=== PATIENT | female | born 1960 | race Caucasian/White ===

== ENCOUNTER 2019-08-09 17:08 | Emergency (ER) | payer BC, SELFPAY ==
[2019-08-09 17:17] VITALS: BP 137/84; PULSE 76; RESP 18; TEMP 36.7; O2SAT 97; BMI 20.6
--- NOTE | 2019-08-09 17:38 | ECG_ITS ---
Measurements Intervals [place] Rate: 69 P: 46 VT: 165 QRS: 58 QRSD: 86 T: 42 QT: 389 QTc: 417 SINUS RHYTHM Compared to ECG 04/04/2018 15:44:50 Sinus tachycardia no longer present Electronically Signed On 08-10-2019 17:21:03 CDT by John Duran M.D. [email or web address]
--- NOTE | 2019-08-09 17:38 | XR_ITS ---
WS: [id number] XR chest 1V portable [id number] REASON FOR EXAM: cp FINDINGS: The heart and mediastinal interfaces are normal. At the region of the T11 vertebra there appears to be a vertebral plasty changes and there is clips s een in this area also. Arteriosclerotic changes in the arch of the aorta. No pneumothorax seen. The hilum and apices normal. XR/XR chest 1V portable [id number] IMPRESSION: Negative chest for acute pathology.
[2019-08-09 17:45] VITALS: O2SAT 95
--- NOTE | 2019-08-09 17:45 | W.ED.CHESTPA ---
HPI - Chest Pain General: Chief Complaint: Chest Pain Stated Complaint: cp,leg pain Time Seen by Provider: 08/09/19 17:36 History of Present Illness: HPI narrative: Patient is concerned about a blood clot to her lungs. She felt a pain on the right side of her leg and immediately had chest pain she states. Denies shortness of breath says chest pain is now gone denies any chest pressure has no pain her arm or neck presently patient is a patient of Dr. Kramer's MD complaint: chest pain Onset (ago): minute(s) Timing of current episode: now resolved Prior episodes: Yes Onset: during rest Pain location: left chest Pain radiation: left arm and neck Severity: mild Quality: sharp Relieving factors: nitroglycerin Exacerbating factors: nothing Associated symptoms: Reports other (Patient states that felt a pain pop in her right leg she is worried about a blood clot traveling to her heart immediately); Deny abdominal pain, dyspnea, fever(s), nausea or vomiting Risk Factors: Coronary artery disease risk factors: hypertension Review of Systems Const: Denies: fever, chills or body aches Eyes: Denies: change in vision or blurry vision ENMT: Denies: throat pain or nasal congestion Card: Reports: chest pain and other (Varicose vein that popped and right leg, patient has a history of stent and prior ND.); Denies: shortness of breath on exertion Resp: Denies: shortness of breath, productive cough or non-productive cough GI: Denies: abdominal pain, nausea or vomiting Musc: Denies: extremity pain Skin/Breast: Denies: rash Neuro: Denies: headache Psych: Denies: anxiety or depression Keaton/Lymph: Denies: easy bruising PFSH ED PFSH: Social History Smoking and tobacco status: current every day smoker Physical Exam Const: COMMON NORMALS: no apparent distress, average body habitus and oriented x3 HENMT: COMMON NORMALS: normocephalic HEAD & SCALP: normal to inspection and normocephalic FACE & SINUS: normal facial exam Eye: COMMON NORMALS: conjunctivae normal GENERAL EYE: normal appearance of both eyes CONJUNCTIVA: Yes conjunctivae normal Neck/C-Spine: COMMON NORMALS: no JVD Chest: COMMONS NORMALS: inspection of chest normal Resp: COMMON NORMALS: normal respiratory effort and clear to auscultation bilaterally AUSCULTATION: clear to auscultation bilaterally Cardio: COMMON NORMALS: no JVD, regular rate and regular rhythm RATE: regular rate RHYTHM: regular rhythm GI: COMMON NORMALS: normal to inspection, nondistended, normoactive bowel sounds Extremity: COMMON NORMALS: normal to inspection and full ROM OTHER: Patient has bruising to her right leg where varicose vein look like it might of busted at looks can old to me. There is no swelling slight slight tenderness to the surface area. No swelling to the calf good range of motion Homans sign is negative. Neuro: COMMON NORMALS: oriented x3 Course Vital Signs: Vital signs: Vital Signs Temperature 98.0 F 08/09/19 17:17 Pulse Rate 76 08/09/19 17:17 Respiratory Rate 18 08/09/19 17:17 Blood Pressure 137/84 08/09/19 17:17 Pulse Oximetry 95 08/09/19 17:45 MDM - Chest Pain MDM Narrative: Medical decision making narrative: Heart score is a 4-5. patient got anxious about the pain she fell on her leg and then she had immediate chest pain started panicking pain is completely relieved now has no shortness of breath feels good desiring to go home. Patient states he does not want to wait for another test she is aware of the risk of going home agrees with her that they do not want a wait because she is fine now and she says that this pain is completely different from the chest pain she is had in the past and she is not having pain since first panic episode. I encouraged him to stay for the 2-hour troponin they said they feel there is no need to and they do not want to they just want to go home. Patient is to follow-up here if pain recurs and her both agree that they will do that. Discussed case with Dr. Price Lab Data: Labs: Lab Results 08/09/19 08/09/19 08/09/19 Range/Units 18:18 18:18 18:18 WBC 9.7 (4.0-10.0) 10^3/ uL RBC 3.94 L (4.1-5.3) 10^6/u L Hgb 12.5 (11.5-15.3) g/dL Hct 38.2 (37.0-47.0) % MCV 97.0 (81-99) fL MCH 31.7 (28.0-34.0) pg MCHC 32.7 (30.0-36.0) g/dL RDW 12.7 (12.1-15.1) % Plt Count 571 H (130-400) 10^3/c mm MPV 8.2 (7.4-10.4) fL Neut % (Auto) 57.8 % Lymph % (Auto) 32.6 % [place] % (Auto) 7.1 % Eos % (Auto) 1.8 % Baso % (Auto) 0.4 % Neut # (Auto) 5.6 (1.8-7.7) 10^3/u L Lymph # (Auto) 3.2 (0.8-4.8) 10^3/u L [place] # (Auto) 0.7 (0.2-0.9) 10^3/u L Eos # (Auto) 0.2 (0.0-0.8) 10^3/u L Baso # (Auto) 0.0 (0.0-0.1) 10^3/u L Nucleated RBC % (a uto) 0 % Nucleated RBCs # 0.0 /100WBC Sodium 138 (136-145) mmol/L Potassium 4.3 (3.5-5.1) mmol/L Chloride 102 (98-107) mmol/L Carbon Dioxide 24 (22-29) mmol/L Anion Gap 16.3 (5-19) BUN 14 (8-23) mg/dL Creatinine 0.7 (0.5-0.9) mg/dL GFR Calculation 85.4 L (90-130) mL/min Glucose 102 (65-115) mg/dL Calculated Osmolal ity 282 L (285-295) mOsm/k g Calcium 9.7 (8.5-10.5) mg/dL Total Bilirubin 0.3 (0.15-1.2) mg/dL AST 20 (0-32) U/L ALT 22 (0-33) U/L Alkaline Phosphata se 69 (35-105) IU/L Troponin T Baselin e 7 (0-10) ng/mL Total Protein 7.5 (6.6-8.7) g/dL Albumin 4.4 (3.5-5.2) g/dL Globulin 3.1 (1.3-4.6) g/dL EKG Data^: EKG 1: EKG interpretation date: 08/09/19 EKG interpretation time: 17:48 Interpretation: Normal sinus rhythm ventricular rate of 69 bpm TN interval 165 QRS is 86 ms Discharge Plan Discharge Patient Disposition: Home, Self-Care Clinical Impression: Atypical chest pain, Panic attack Condition: Stable Discharge Orders: Discharge Order (Routine); Ordered 08/09/19 Ordered By: Ronen Gerard Referrals: Uriel Bae DO [Family Provider] - Discharge Diet: Usual diet Discharge Activity: Increase activity as tolerated Patient Instructions: Chest Pain (ED), Panic Attack Activity Restrictions/Additional Instructions: Follow-up with medical provider as directed. Take medications as prescribed. Return to the ER or your medical provider if condition worsens. Please read and understand discharge instructions. If any questions ask please. Return the ER via ambulance or come in if chest pain reoccurs follow-up your primary care provider moist heat to right lower extremity might help with the discomfort of varicose veins. Coding Level of Care Code ED Cable Ferry Operator for Chg Fwd Exam Comprehensive
[2019-08-09 18:32] LABS: Basophils % 0.4 %; Eosinophils # 0.2 10^3/uL (0.0-0.8); Eosinophils % 1.8 %; Hematocrit 38.2 % (37.0-47.0); Hemoglobin 12.5 g/dL (11.5-15.3); Lymphocytes # 3.2 10^3/uL (0.8-4.8); Lymphocytes % 32.6 %; Mean Corpuscular HGB Conc 32.7 g/dL (30.0-36.0); Mean Corpuscular Hemoglobin 31.7 pg (28.0-34.0); Mean Platelet Volume 8.2 fL (7.4-10.4); Monocytes # 0.7 10^3/uL (0.2-0.9); Monocytes % 7.1 %; Neutrophils # 5.6 10^3/uL (1.8-7.7); Neutrophils % 57.8 %; Nucleated Red Blood Cells % 0 %; Platelet Count 571 10^3/cmm (130-400); Red Blood Count 3.94 10^6/uL (4.1-5.3); Red Cell Distribution Width 12.7 % (12.1-15.1); White Blood Count 9.7 10^3/uL (4.0-10.0)
[2019-08-09 18:51] LABS: Alanine Aminotransferase 22 U/L (0-33); Albumin Level 4.4 g/dL (3.5-5.2); Alkaline Phosphatase 69 IU/L (35-105); Anion Gap 16.3 (5-19); Aspartate Amino Transferase 20 U/L (0-32); Blood Urea Nitrogen 14 mg/dL (8-23); Calcium 9.7 mg/dL (8.5-10.5); Carbon Dioxide 24 mmol/L (22-29); Chloride 102 mmol/L (98-107); Globulin 3.1 g/dL (1.3-4.6); Glomerular Filtration Rate 85.4 mL/min (90-130); Glucose 102 mg/dL (65-115); Osmolality Calculated 282 mOsm/kg (285-295); Potassium 4.3 mmol/L (3.5-5.1); Sodium 138 mmol/L (136-145); Total Bilirubin 0.3 mg/dL (0.15-1.2); Total Protein 7.5 g/dL (6.6-8.7)
[2019-08-09 18:53] LABS: Troponin(5th) Baseline 7 ng/mL (0-10)
[2019-08-09 19:27] VITALS: BP 117/72; PULSE 73; RESP 18; O2SAT 98
== END 2019-08-09 19:28 | disposition home or self-care (01) ==
PROVIDERS: Emergency Provider Nurse Practitioner Family; Family Provider Family Medicine
DX: R07.89 Other chest pain (principal); F41.0 Panic disorder [episodic paroxysmal anxiety]; I25.2 Old myocardial infarction; F17.200 Nicotine dependence, unspecified, uncomplicated; Z95.5 Presence of coronary angioplasty implant and graft
CPT/HCPCS: 12345; 71045; 80053; 84484; 85025; 93005; 99282; 99283

== ENCOUNTER 2019-10-09 11:40 | Inpatient (IN) | payer BC, SELFPAY ==
[2019-10-09] VITALS (7 sets, daily range): BP systolic 118–123; BP diastolic 68–83; PULSE 68–123; RESP 18; TEMP 36.4–36.6; O2SAT 94–98; BMI 21.1
--- NOTE | 2019-10-09 12:16 | W.ED.ABDPA2 ---
HPI - Abdominal Pain General: Chief Complaint: Abdominal Pain Stated Complaint: stomach pain Time Seen by Provider: 10/09/19 11:53 History of Present Illness: HPI narrative: Patient is a 59 year old female presenting with abdominal pain and vomiting. She thinks that she has another intestinal blockage. She has had numerous blockages and resections - most recent surgery was about 9 years ago but she has had admissions with NG tubes since then several times. She has had pain for two days and started throwing up yesterday. She has only been sucking on ice chips for the past day or two. She has not had a bowel movement in 2 days. MD elicited complaint: abdominal pain Onset (ago): day(s) (2) Pain Consistency: constant Location: Diffuse Severity: similar to previous episodes Quality: cramping and sharp Radiation: back Exacerbating factors: movement Relieving factors: nothing Context: history of similar episodes Associated Symptoms: Reports anorexia, nausea and vomiting; Denies fever(s) Review of Systems Const: Denies: fever(s) Card: Denies: chest pain or palpitations Resp: Denies: dyspnea, productive cough or non-productive cough GI: Reports: abdominal pain, nausea and vomiting : Denies: difficulty voiding Neuro: Denies: headache(s) Keaton/Lymph: Denies: easy bruising or easy bleeding PFS ED PFSH: Social History Smoking and tobacco status: current every day smoker Physical Exam Const: COMMON NORMALS: patient oriented x3 GENERAL APPEARANCE: cooperative and in distress NUTRITIONAL APPEARANCE: underweight Neck/C-Spine: COMMON NORMALS: no JVD Chest: COMMONS NORMALS: normal inspection of the chest Resp: COMMON NORMALS: normal respiratory effort, No retractions, No use of accessory muscles and clear to auscultation bilaterally AUSCULTATION: clear to auscultation bilaterally Cardio: COMMON NORMALS: no JVD, regular rhythm and No murmurs present (Cardio) RATE: tachycardic RHYTHM: regular rhythm GI: INSPECTION: Yes scar (multiple surgical scars) PALPATION: Yes Tenderness to palpation present (GI) and Yes Guarding due to palpation present (GI) : BLADDER/KIDNEY EXAM: Yes CVA tenderness Back/Pelvis: COMMON NORMALS: thoraco-lumbar ROM normal GENERAL BACK: Yes CVA tenderness LUMBAR SPINE/LOWER BACK: Yes normal to inspection Extremity: COMMON NORMALS: normal to inspection Neuro: COMMON NORMALS: patient oriented x3 and moves all extremities Psych: COMMON NORMALS: mental status grossly normal, Normal thought process present, cooperative and normal affect THOUGHT PROCESS: Normal thought process present Skin: COMMON NORMALS: no rashes or lesions noted and no wounds GENERAL SKIN EXAM: no rashes or lesions noted Course ED course: Patient with history of multiple episodes of SBO with multiple prior surgeries. She is in significant distress today - and likely has another blockage. AAS nondiagnostic - CT confirms obstruction in the RLQ. NG tube placed - she reports an allergy to lidocaine but says she has had it safely with benadryl in the past - so lidocaine gel was used for the tube placement. Dr. Marie will admit her for further management. Reevaluation(s): Reevaluation #1: Patient with some improvement, but requesting another dose of pain medicine. Tolerating PO contrast with difficulty. Time: 14:38 Vital Signs: Vital signs: Vital Signs Temperature 97.9 F 10/09/19 19:31 Pulse Rate 77 10/09/19 19:31 Respiratory Rate 18 10/09/19 19:31 Blood Pressure 123/83 10/09/19 19:31 Pulse Oximetry 97 10/09/19 19:31 MDM - Abdominal Pain MDM Narrative: Medical decision making narrative: History of SBO - significant pain, tachycardia, slightly elevated WBC and lactate. Lab Data: Labs: Lab Results 10/09/19 10/09/19 10/09/19 Range/Units 12:40 12:40 12:40 WBC 15.7 H (4.0-10.0) 10^3/ uL RBC 4.86 (4.1-5.3) 10^6/u L Hgb 15.2 (11.5-15.3) g/dL Hct 44.6 (37.0-47.0) % MCV 91.8 (81-99) fL MCH 31.3 (28.0-34.0) pg MCHC 34.1 (30.0-36.0) g/dL RDW 12.6 (12.1-15.1) % Plt Count 502 H (130-400) 10^3/c mm MPV 8.6 (7.4-10.4) fL Neut % (Auto) 71.1 % Lymph % (Auto) 21.4 % [place] % (Auto) 6.7 % Eos % (Auto) 0.3 % Baso % (Auto) 0.1 % Neut # (Auto) 11.2 H (1.8-7.7) 10^3/u L Lymph # (Auto) 3.4 (0.8-4.8) 10^3/u L [place] # (Auto) 1.1 H (0.2-0.9) 10^3/u L Eos # (Auto) 0.0 (0.0-0.8) 10^3/u L Baso # (Auto) 0.0 (0.0-0.1) 10^3/u L Nucleated RBC % (a uto) 0 % Nucleated RBCs # 0.0 /100WBC Sodium 137 (136-145) mmol/L Potassium 3.9 (3.5-5.1) mmol/L Chloride 97 L (98-107) mmol/L Carbon Dioxide 24 (22-29) mmol/L Anion Gap 19.9 H (5-19) BUN 11 (8-23) mg/dL Creatinine 0.7 (0.5-0.9) mg/dL GFR Calculation 85.4 L (90-130) mL/min Glucose 183 H (65-115) mg/dL Calculated Osmolal ity 285 (285-295) mOsm/k g Lactate 2.6 H (0.5-2.2) mmol/L Calcium 10.3 (8.5-10.5) mg/dL Total Bilirubin 0.8 (0.15-1.2) mg/dL AST 15 (0-32) U/L ALT 22 (0-33) U/L Alkaline Phosphata se 76 (35-105) IU/L Total Protein 8.2 (6.6-8.7) g/dL Albumin 4.8 (3.5-5.2) g/dL Globulin 3.4 (1.3-4.6) g/dL Lipase 15 (13-60) U/L Urine Color (Yellow) Urine Appearance (CLEAR) Urine pH (5-7) Ur Specific Gravit y (1.005-1.030) Urine Protein (Negative) Urine Glucose (UA) (Normal) Urine Ketones (Negative) Urine Blood (Negative) Urine Nitrate (Negative) Urine Bilirubin (NEGATIVE) Urine Urobilinogen (Negative) mg/dL Ur Leukocyte Dina ase (Negative) Urine RBC (0-2) /hpf Urine WBC (0-5) /hpf Ur Squamous Epith Cells (0-5) Urine Bacteria (NONE) Urine Mucus 10/09/19 Range/Units 14:41 WBC (4.0-10.0) 10^3/ uL RBC (4.1-5.3) 10^6/u L Hgb (11.5-15.3) g/dL Hct (37.0-47.0) % MCV (81-99) fL MCH (28.0-34.0) pg MCHC (30.0-36.0) g/dL RDW (12.1-15.1) % Plt Count (130-400) 10^3/c mm MPV (7.4-10.4) fL Neut % (Auto) % Lymph % (Auto) % [place] % (Auto) % Eos % (Auto) % Baso % (Auto) % Neut # (Auto) (1.8-7.7) 10^3/u L Lymph # (Auto) (0.8-4.8) 10^3/u L [place] # (Auto) (0.2-0.9) 10^3/u L Eos # (Auto) (0.0-0.8) 10^3/u L Baso # (Auto) (0.0-0.1) 10^3/u L Nucleated RBC % (a uto) % Nucleated RBCs # /100WBC Sodium (136-145) mmol/L Potassium (3.5-5.1) mmol/L Chloride (98-107) mmol/L Carbon Dioxide (22-29) mmol/L Anion Gap (5-19) BUN (8-23) mg/dL Creatinine (0.5-0.9) mg/dL GFR Calculation (90-130) mL/min Glucose (65-115) mg/dL Calculated Osmolal ity (285-295) mOsm/k g Lactate (0.5-2.2) mmol/L Calcium (8.5-10.5) mg/dL Total Bilirubin (0.15-1.2) mg/dL AST (0-32) U/L ALT (0-33) U/L Alkaline Phosphata se (35-105) IU/L Total Protein (6.6-8.7) g/dL Albumin (3.5-5.2) g/dL Globulin (1.3-4.6) g/dL Lipase (13-60) U/L Urine Color Yellow (Yellow) Urine Appearance Hazy A (CLEAR) Urine pH 5 (5-7) Ur Specific Gravit y 1.025 (1.005-1.030) Urine Protein Neg (Negative) Urine Glucose (UA) Norm (Normal) Urine Ketones 1+ H (Negative) Urine Blood Neg (Negative) Urine Nitrate Positive H (Negative) Urine Bilirubin 1+ H (NEGATIVE) Urine Urobilinogen 1 H (Negative) mg/dL Ur Leukocyte Dina ase Negative (Negative) Urine RBC None (0-2) /hpf Urine WBC 5-10 H (0-5) /hpf Ur Squamous Epith Cells None (0-5) Urine Bacteria 4+ H (NONE) Urine Mucus 1+ Discharge Plan Discharge Patient Disposition: Admitted As Inpatient Admit Provider: Kevin Marie Clinical Impression: Small bowel obstruction Urinary tract infection Qualifiers: Urinary tract infection type: site unspecified Hematuria presence: without hematuria Qualified Code(s): N39.0 - Urinary tract infection, site not specified Condition: Stable Discharge Date/Time: 10/09/19 19:08 Coding Level of Care Code ED Boy'S Adviser for Aneeshg Fwd Exam Comprehensive
[2019-10-09] MEDS: sodium chloride 0.9% 1,000 ML 999 ML IV ×2 (12:22→14:30)
[2019-10-09] MEDS: HYDROmorphone 1 mg/mL INJ 1 mL 0.5 MG IVP ×3 (12:28→18:03)
[2019-10-09] MEDS: ondansetron 2 mg/ML SDV 2 mL 4 MG IVP ×2 (12:28→22:14)
--- NOTE | 2019-10-09 12:49 | XR_ITS ---
WS: [id number] Abdomen series: PA CHEST AND 2 VIEWS OF THE ABDOMEN HISTORY: SUSPECTED SBO COMPARISON: 04/07/2018 Lungs are clear and well aerated. Heart size is normal. No free air beneath the diaphragm. Mild fluid distention of the small bowel but no air-fluid levels are identified. No masses or calcifi cations. Osseous structures are also within normal limits. No free air beneath the diaphragm. Multiple surgical clips at the GE junction. Prior vertebroplasty at T12. XR/XR acute abdomen series [id number] IMPRESSION: No air-fluid levels or GI tract obstruction identified radiographically. No free air. Mild dilatation of the central small bowel loops.
[2019-10-09 12:58] LABS: Basophils % 0.1 %; Eosinophils % 0.3 %; Hematocrit 44.6 % (37.0-47.0); Hemoglobin 15.2 g/dL (11.5-15.3); Lymphocytes # 3.4 10^3/uL (0.8-4.8); Lymphocytes % 21.4 %; Mean Corpuscular HGB Conc 34.1 g/dL (30.0-36.0); Mean Corpuscular Hemoglobin 31.3 pg (28.0-34.0); Mean Corpuscular Volume 91.8 fL (81-99); Mean Platelet Volume 8.6 fL (7.4-10.4); Monocytes # 1.1 10^3/uL (0.2-0.9); Monocytes % 6.7 %; Neutrophils # 11.2 10^3/uL (1.8-7.7); Neutrophils % 71.1 %; Nucleated Red Blood Cells % 0 %; Platelet Count 502 10^3/cmm (130-400); Red Blood Count 4.86 10^6/uL (4.1-5.3); Red Cell Distribution Width 12.6 % (12.1-15.1); White Blood Count 15.7 10^3/uL (4.0-10.0)
[2019-10-09 13:15] LABS: Lactate (Lactic Acid level) 2.6 mmol/L (0.5-2.2)
--- NOTE | 2019-10-09 13:16 | CT_ITS ---
WS: [id number] CT ABDOMEN AND PELVIS WITH CONTRAST HISTORY: abdominal pain, fever TECHNIQUE: Imaging performed of the abdomen and pelvis with IV contrast. Single phase imaging of the abdomen. Coronal and sagittal reformats are submitted. All CT scans at [facility] use at least one of these dose optimization techniques: automated exposure control; mA and/or kV adjustment per patient size (includes targeted exams where dose is matched to clinical indication); or iterativ e reconstruction. IV CONTRAST: Omnipaque 300; 95 mL IV. Oral contrast: Yes. DLP: 500.31 mGy.cm COMPARISON: 04/04/2018 Lower thorax: Lung bases are clear. Heart is normal size. Postoperative clips at the GE junction. No hernia. Liver/biliary system: Normal size liver. 1.5 cm cyst along the dome of the liver. No bile duct dilata tion. Gallbladder: Prior cholecystectomy. Pancreas: Significant atrophy of the body and tail of the pancreas. No mass or bile duct dilatation. Spleen: Normal. Adrenal glands: Normal. Right kidney: Normal. Left kidney: Normal. Aorta: Atherosclerosis aorta with no aneurysm. Lymphadenopathy: None. Free fluid: None. GI tract: Marked fluid in the food retention in the stomach. There is marked dilatation of the duoden al C-loop and the proximal jejunum. There is marked thickening of the jejunal mucosa nodular componen ts extending into the small bowel lumen. There is a focal stricture in the RIGHT lower quadrant dista l small bowel. Additional mild mucosal thickening involving the transverse colon. There are anastomot ic sutures in the mid and distal small bowel. There is mild change in caliber of the proximal and mid small bowel loops with the distal small bowel loops. Slight of obstruction is not apparent. Prior ap pendectomy. Abdominal wall: Unremarkable abdominal wall. No hernia. Pelvis: Normal. Bones: Unremarkable. CT/CT abdomen pelvis w con* [id number] IMPRESSION: 1. Dilated patulous proximal and mid small bowel loops. Multiple surgical anas tomotic sites throughout the small bowel. Distal small bowel loops are more nor mal caliber. Site of obstruction is not apparent. 2. Diffuse small bowel mucosal thickening with soft tissue nodules projecting into the lumen. Edema, infection or hemorrhage may appear similar. 3. No ascites. No free air. 4. Prior cholecystectomy.
[2019-10-09 13:17] LABS: Alanine Aminotransferase 22 U/L (0-33); Albumin Level 4.8 g/dL (3.5-5.2); Alkaline Phosphatase 76 IU/L (35-105); Anion Gap 19.9 (5-19); Aspartate Amino Transferase 15 U/L (0-32); Blood Urea Nitrogen 11 mg/dL (8-23); Calcium 10.3 mg/dL (8.5-10.5); Carbon Dioxide 24 mmol/L (22-29); Chloride 97 mmol/L (98-107); Globulin 3.4 g/dL (1.3-4.6); Glomerular Filtration Rate 85.4 mL/min (90-130); Glucose 183 mg/dL (65-115); Lipase 15 U/L (13-60); Osmolality Calculated 285 mOsm/kg (285-295); Potassium 3.9 mmol/L (3.5-5.1); Sodium 137 mmol/L (136-145); Total Bilirubin 0.8 mg/dL (0.15-1.2); Total Protein 8.2 g/dL (6.6-8.7)
[2019-10-09] MEDS: iohexol 300 mg/mL 50 mL Btl PO (13:59)
[2019-10-09 14:54] LABS: Blood Urine Neg (Negative); Glucose Urine UA Norm (Normal); Ketones Urine 1+ (Negative); Nitrate Urine Positive (Negative); Protein Urine Neg (Negative); Specific Gravity, Urine 1.025 (1.005-1.030); Urine Appearance Hazy (CLEAR); Urine Color Yellow (Yellow); pH Urine 5 (5-7)
[2019-10-09 14:55] LABS: Add Urine Culture? Yes; Add Urine Microscopic? YES; Bacteria Urine 4+; Bilirubin Urine 1+ (NEGATIVE); Leukocyte Esterase Urine Negative (Negative); Mucus Urine 1+; Urobilinogen Urine 1 mg/dL (Negative)
[2019-10-09] MEDS: iohexol 300 mg/mL 100 mL Btl IV (16:16)
--- NOTE | 2019-10-09 17:01 | XRR_ITS ---
PROCEDURE INFORMATION: Exam: XR Chest, 1 View Exam date and time: 10/09/2019 6:24 PM Age: 59 years old Clinical indication: Device placement; Ng tube; Additional info: Ng tube placement TECHNIQUE: Imaging protocol: XR of the chest Views: 1 view. COMPARISON: CR XR chest 1V portable [id number] 08/09/2019 5:57 PM FINDINGS: Tubes, catheters and devices: A nasogastric tube is present with its tip in the distal stomach. Lungs: Unremarkable. No consolidation. Pleural space: Unremarkable. No pleural effusion. No pneumothorax. Heart/Mediastinum: Unremarkable. No cardiomegaly. Bones/joints: Unremarkable. XR/XR chest 1V portable [id number] IMPRESSION: Nasogastric tube tip in distal stomach.
[2019-10-09] MEDS: D5-NS 0.45% + KCL 20 mEq 20 MEQ/1,000 ML BAG 100 MEQ IV ×2 (18:00→23:12)
[2019-10-09] MEDS: cefTRIAXone 1,000 MG in sodium chloride 0.9% (plus) 50 ML 100 MG IV (18:01)
[2019-10-09] MEDS: diphenhydrAMINE 50 mg/mL SDV 1mL IVP (18:05)
[2019-10-09] MEDS: enoxaparin 30 mg/0.3 mL Syringe SUBCUT (18:05)
[2019-10-09] MEDS: pantoprazole 40 mg SDV IVP (18:05)
[2019-10-09] MEDS: ketorolac 30 mg/mL INJ 15 MG IVP (22:13)
[2019-10-10] VITALS (8 sets, daily range): BP systolic 97–124; BP diastolic 63–81; PULSE 63–95; RESP 18–22; TEMP 36.5–37; O2SAT 93–98
[2019-10-10] MEDS: HYDROmorphone 1 mg/mL INJ 1 mL 0.5 MG IVP (02:36)
[2019-10-10 06:14] LABS: Basophils % 0.3 %; Eosinophils # 0.2 10^3/uL (0.0-0.8); Eosinophils % 2.3 %; Hematocrit 32.8 % (37.0-47.0); Hemoglobin 10.8 g/dL (11.5-15.3); Lymphocytes # 3.6 10^3/uL (0.8-4.8); Lymphocytes % 48.1 %; Mean Corpuscular HGB Conc 32.9 g/dL (30.0-36.0); Mean Corpuscular Hemoglobin 32.2 pg (28.0-34.0); Mean Corpuscular Volume 97.9 fL (81-99); Mean Platelet Volume 8.5 fL (7.4-10.4); Monocytes # 0.6 10^3/uL (0.2-0.9); Monocytes % 7.8 %; Neutrophils # 3.1 10^3/uL (1.8-7.7); Neutrophils % 41.2 %; Nucleated Red Blood Cells % 0 %; Platelet Count 318 10^3/cmm (130-400); Red Blood Count 3.35 10^6/uL (4.1-5.3); White Blood Count 7.5 10^3/uL (4.0-10.0)
[2019-10-10] MEDS: ketorolac 30 mg/mL INJ 15 MG IVP ×4 (06:19→23:25)
[2019-10-10 06:34] LABS: Alanine Aminotransferase 15 U/L (0-33); Albumin Level 3.3 g/dL (3.5-5.2); Alkaline Phosphatase 50 IU/L (35-105); Anion Gap 14.2 (5-19); Aspartate Amino Transferase 13 U/L (0-32); Blood Urea Nitrogen 6 mg/dL (8-23); Calcium 8.4 mg/dL (8.5-10.5); Carbon Dioxide 21 mmol/L (22-29); Chloride 111 mmol/L (98-107); Globulin 2.3 g/dL (1.3-4.6); Glomerular Filtration Rate 125.9 mL/min (90-130); Glucose 123 mg/dL (65-115); Osmolality Calculated 291 mOsm/kg (285-295); Potassium 4.2 mmol/L (3.5-5.1); Sodium 142 mmol/L (136-145); Total Bilirubin 0.3 mg/dL (0.15-1.2); Total Protein 5.6 g/dL (6.6-8.7)
--- NOTE | 2019-10-10 07:09 | XRR_ITS ---
PROCEDURE INFORMATION: Exam: XR Complete Acute Abdomen Series Exam date and time: 10/10/2019 6:46 AM Age: 59 years old Clinical indication: Abdominal pain; Generalized; Additional info: Sbo TECHNIQUE: Imaging protocol: XR complete acute abdomen series, including 2 or more views of the abdomen and a single view chest. COMPARISON: No relevant prior studies available. FINDINGS: Tubes, catheters and devices: Enteric tube extends to the abdomen with the tip at the level of gastric body slightly right of midline. Lungs: No focal parenchymal consolidation. Pleural space: Normal. No pneumothorax. Heart/Mediastinum: Heart size is similar. Gastrointestinal tract: Residual gastrointestinal contrast media within bowel predominantly colon. No extreme dilatation of bowel. Paucity of bowel gas left abdomen which could reflect fluid-filled or distended bowel. No significant air-fluid levels. Intraperitoneal space: Numerous surgical clips upper abdomen. Lucency centrally within the abdomen on the supine image only is probably artifactual. Vasculature: Calcification thoracic aorta. Numerous vascular calcifications and phleboliths within the pelvis. Bones/joints: Plate fixation lower cervical spine. Osteopenia. Prior vertebroplasty at T12. Soft tissues: Normal. XR/XR acute abdomen series [id number] IMPRESSION: 1. No acute cardiopulmonary process. 2. Residual contrast media within the colon. 3. Postoperative abdomen with paucity of bowel gas on the left which could reflect fluid distended bowel. Nonspecific intestinal gas pattern. Correlation to the recent CT abdomen and pelvis is recommended. 4. Atypical lucency central abdomen on the supine image probably technical with definition of iliopsoas musculature. Correlation to [address] abdomen and pelvis and 1 day previous acute abdominal series is required for complete exclusion of abnormal collection of retroperitoneal gas.
--- NOTE | 2019-10-10 11:31 | PM.HP ---
Providers/Chief Complaint Admitting Physician: Kevin Marie MD Chief Complaint: stomach pain History of Present Illness Yessi Schulte is a 59 year old female who presented to the ER last night with 2-day history of worsening generalized abdominal pain. The pain was made worse with physical activity, did not radiate, no relieving factors. Patient started having severe nausea and vomiting yesterday which she states that she has been a bit constipated but still having daily bowel movements. Admitted to the hospital after CT scan of the abdomen and pelvis showed bowel obstruction. This morning she is feeling a lot better after the NG tube has been placed to suction. Review of Systems General: Reports: 10 or more systems reviewed and unremarkable except in HPI and below Medications/Allergies Home Medications Medication Instructions Recorded Confirmed Last Taken Type gabapentin 300 mg PO TID 10/09/19 10/09/19 10/07/19 History isosorbide mononitrate 30 mg PO DAILY 10/09/19 10/09/19 10/07/19 History metformin 500 mg PO DAILY 10/09/19 10/09/19 10/07/19 History metoprolol succinate 12.5 mg PO BID 10/09/19 10/09/19 10/07/19 History venlafaxine 75 mg PO DAILY 10/09/19 10/09/19 10/07/19 History Allergies Allergy/AdvReac Type Severity Reaction Status Date / Time codeine Allergy ADR-Nausea Verified 10/09/19 11:51 lidocaine Allergy ALGY-Swell Verified 10/09/19 11:51 Lip/Tongue/Throat morphine Allergy ADR-Vomitin Verified 10/09/19 11:51 g Penicillins Allergy ALGY-Swell Verified 10/09/19 11:51 Lip/Tongue/Throat procaine [From Novocain] Allergy ALGY-Swell Verified 10/09/19 11:51 Lip/Tongue/Throat prochlorperazine Allergy ADR-Muscle Verified 10/09/19 11:51 [From Compazine] Pain PFSH Acute PFSH: Medical History Depression HTN (hypertension) with goal to be determined Myocardial infarction acute Pancreatitis SBO (small bowel obstruction) Surgical History H/O exploratory laparotomy H/O splenectomy History of appendectomy S/P cardiac cath S/P cholecystectomy Social History Smoking and tobacco status: current every day smoker Vitals/I&O/Wt Last Vital Signs Temp 97.8 F 10/10/19 07:29 Pulse 63 10/10/19 07:29 Resp 20 H 10/10/19 07:29 BP 124/81 10/10/19 07:29 Pulse Ox 97 10/10/19 07:29 10/09/19 10/10/19 10/10/19 22:59 06:59 14:59 Intake Total 189 / 1414 1225 / 1414 Output Total 50 / 250 200 / 250 Balance 139 / 1164 1025 / 1164 Weight last 48 hrs Weight 112 lb Physical Exam Narrative: EXAM NARRATIVE: HEENT: Normocephalic Eye: Sclera /conjunctiva normal Respiratory and chest: Bilateral clear breath sounds on auscultation Cardiovascular: Normal S1 and S2 heart sounds Abdomen: Soft to palpation, well-healed right subcostal and laparotomy scar Neurological: Oriented to place person and time Skin: Intact, no lesions appreciated on gross exam Data : 10/10/19 05:52 10/10/19 05:52 A&P Assessment and plan (1) Small bowel obstruction: 59-year-old female with prior laparotomies for small bowel obstruction requiring lysis of adhesions who presents again with small bowel obstruction. Clinically she appears to be doing better after NG tube was placed, no evidence of peritonitis or hemodynamic instability. Clamp NG tube Start clear liquid diet 1 bottle of magnesium citrate Milk of molasses enema Ambulate ad xochitl. Hopefully if she is tolerating it we can discontinue the NG tube this evening and advance the diet and can be discharged home tomorrow Status: Acute Attestations Medical Necessity Statement*: Small bowel obstruction requiring 2 nights of inpatient stay to ensure resolution Coding Level of Care Code Acute Marketing Technology Coordinator for [facility] Fw Diagnoses Small bowel obstruction K56.609
--- NOTE | 2019-10-10 11:38 | PC.NURSE ---
Dr. Marie clamped patient's NG tube at this time. If not having any nausea check residue at 1600 and see how much and call and let him know about bowel movements.
--- NOTE | 2019-10-10 13:06 | PC.NURSE ---
Milk and Molasses enema given at this time time with minimal results. Patient tolerated well.
--- NOTE | 2019-10-10 13:49 | PC.RESP ---
Smoking Cessation information to patient with a schedule of classes.
[2019-10-10] MEDS: venlafaxine ER (24HR) 75 mg Capsule PO (13:50)
[2019-10-10] MEDS: isosorbide mononitrate ER 30 mg Tablet PO (13:50)
[2019-10-10] MEDS: gabapentin 300 mg Capsule PO ×2 (16:21→19:58)
[2019-10-10] MEDS: D5-NS 0.45% + KCL 20 mEq 20 MEQ/1,000 ML BAG 100 MEQ IV ×2 (16:24→19:58)
[2019-10-10 17:37] LABS: Glucose Point of Care 121 mg/dL (70-110)
[2019-10-10] MEDS: magnesium citrate Btl 296 mL PO (17:43)
[2019-10-10 21:13] LABS: Glucose Point of Care 109 mg/dL (70-110)
[2019-10-11 03:00] VITALS: BP 97/63; PULSE 74; RESP 20; TEMP 36.6; O2SAT 97
--- NOTE | 2019-10-11 06:28 | XRR_ITS ---
PROCEDURE INFORMATION: Exam: XR Abdomen, 2 Views Exam date and time: 10/11/2019 7:33 AM Age: 59 years old Clinical indication: Abdominal pain; Additional info: Sbo TECHNIQUE: Imaging protocol: XR of the abdomen. Views: 2 Views. COMPARISON: CR XR acute abdomen series [id number] 10/10/2019 5:21 AM FINDINGS: Gastrointestinal tract: Retained feces throughout the colon Intraperitoneal space: Stable postoperative changes over the abdomen and pelvis. Vasculature: One or more calcified pelvic phleboliths. Bones/joints: One or more thoracic vertebroplasties. XR/XR abdomen min 2V [id number] IMPRESSION: No acute findings.
[2019-10-11 06:52] LABS: Glucose Point of Care 144 mg/dL (70-110)
[2019-10-11 07:00] VITALS: BP 133/85; PULSE 60; RESP 18; TEMP 36.4; O2SAT 96
[2019-10-11] MEDS: gabapentin 300 mg Capsule PO (09:19)
[2019-10-11] MEDS: isosorbide mononitrate ER 30 mg Tablet PO (09:20)
[2019-10-11] MEDS: metoprolol succinate ER (24 HR) 25 mg Tablet 12.5 MG PO (09:20)
[2019-10-11] MEDS: venlafaxine ER (24HR) 75 mg Capsule PO (09:20)
[2019-10-11 10:55] VITALS: BP 118/73; PULSE 70; RESP 18; TEMP 36.5; O2SAT 98
[2019-10-11] MEDS: D5-NS 0.45% + KCL 20 mEq 20 MEQ/1,000 ML BAG 100 MEQ IV (10:56)
[2019-10-11 11:29] LABS: Glucose Point of Care 94 mg/dL (70-110)
--- NOTE | 2019-10-11 12:34 | P.DS_ITS ---
Discharge Providers Date of Admission: 10/09/19 17:11 Date of Discharge: October 11, 2019 Attending Provider at Admission: Kevin Marie MD Attending Provider at Discharge: Kevin Marie MD Diagnoses at Discharge Discharge Diagnosis (1) Small bowel obstruction: Status: Resolved Reason for Visit Reason for Visit: Reason For Visit: stomach pain Hospital Course Hospital Course: This is a 59-year-old female with multiple prior admissions for small bowel obstruction presented to the ER with abdominal pain nausea and vomiting and a CT scan showing bowel obstruction. An NG tube was placed and by following day she had return of bowel function with aggressive bowel regimen. At time of discharge her abdominal pain is minimal, she is tolerating a liquid diet and has had multiple bowel movements. Physical Exam Narrative: EXAM NARRATIVE: Abdomen: Soft and nondistended Discharge Data Data Completed and Pending: Completed Studies During Hospitalization Category Date Time Status CT abdomen pelvis w con* [id number] Urge nt Cat Scan 10/09/19 13:16 Completed XR abdomen min 2V [id number] Routine Exams 10/11/19 06:28 Completed XR acute abdomen series [id number] Routi ne Exams 10/10/19 07:09 Completed XR acute abdomen series [id number] Urgen t Exams 10/09/19 12:49 Completed XR chest 1V tevin ble [id number] Stat Exams 10/09/19 17:01 Completed Labs from last 24 hours 10/11/19 10/11/19 10/10/19 10:53 06:45 21:06 POC Glucose 94 144 109 10/10/19 17:31 POC Glucose 121 Vitals: Last Vital Signs Temp 97.7 F 10/11/19 10:55 Pulse 70 10/11/19 10:55 Resp 18 10/11/19 10:55 BP 118/73 10/11/19 10:55 Pulse Ox 98 10/11/19 10:55 Discharge Plan Discharge Patient Disposition: Home, Self-Care Condition: Stable Prescriptions: New lactulose 10 gram/15 mL solution 15 ml PO BID Qty: 237 RF: 2 ciprofloxacin HCl 500 mg tablet 500 mg PO BID 5 Days Qty: 10 RF: 0 Continued venlafaxine 75 mg capsule,extended release 24hr 75 mg PO DAILY RF: 0 isosorbide mononitrate 30 mg tablet extended release 24 hr 30 mg PO DAILY RF: 0 gabapentin 300 mg capsule 300 mg PO TID RF: 0 metoprolol succinate 25 mg tablet extended release 24 hr 12.5 mg PO BID RF: 0 metformin 500 mg tablet extended release 24hr 500 mg PO DAILY RF: 0 Discharge Orders: Discharge Order (Routine); Ordered 10/11/19 Ordered By: Kevin Marie Referrals: Kevin Marie MD [Physician] - (You will need to call Saturday and make a hospital follow up appointment with Dr. Marie in 4-7 days unless the office gives different instructions.) Pierce Sanchez MD [Physician] - (Call Saturday and make a hospital follow up appointment at [facility] with a [facility] provider in 4-7 days.) Discharge Diet: GI Soft Discharge Activity: Resume usual activity Patient Instructions: Ciprofloxacin (By mouth), Lactulose (By mouth), Urinary Tract Infection in Women (DC), Bowel Obstruction (DC) Discharge Date/Time: 10/11/19 14:15 Discharge Attestations Time Spent in Discharge Care*: less than 30 min Quality Metrics Clinical Quality Measures During this hospital stay, did patient experience: None Coding Level of Care Code Acute Digital Advertising Analyst for [facility] Fwd Diagnoses Small bowel obstruction K56.609
--- NOTE | 2019-10-11 12:34 | PM.PN ---
Subjective Subjective: Interval history: Patient has been doing well, denies any nausea or vomiting, tolerating a liquid diet Vitals/I&O/Wt Last Vital Signs Temp 97.7 F 10/11/19 10:55 Pulse 70 10/11/19 10:55 Resp 18 10/11/19 10:55 BP 118/73 10/11/19 10:55 Pulse Ox 98 10/11/19 10:55 10/10/19 10/11/19 10/11/19 22:59 06:59 14:59 Intake Total 356.667 / 2356.667 1000 / 2356.667 360 / 360 Output Total 600 / 600 Balance -243.333 / 0718.199 3734 / 1756.667 360 / 360 Physical Exam Narrative: EXAM NARRATIVE: Min: Soft, nontender, nondistended Data : 10/10/19 05:52 10/10/19 05:52 Micro: Microbiology 10/09/19 14:41 Urine Culture - Final Urine,Clean Catch Escherichia coli A&P Assessment and plan (1) Small bowel obstruction: Tolerating liquid diet, had multiple bowel movements DC home today on lactulose Status: Resolved (2) Urinary tract infection: Final culture showed E. coli sensitive to Cipro Status: Resolved Qualifiers: Hematuria presence: without hematuria Urinary tract infection type: site unspecified Qualified Code(s): N39.0 - Urinary tract infection, site not specified Attestations Medical Necessity Statement*: Small bowel obstruction and UTI, DC home today Coding Level of Care Code Acute Certified Surgical First Assistant for [facility] Fwd Diagnoses Small bowel obstruction K56.609 Urinary tract infection N39.0 Hematuria presence: without hematuria Urinary tract infection type: site unspecified
[2019-10-11 13:13] VITALS: BP 118/73; PULSE 70; RESP 18; TEMP 36.5; O2SAT 98
== END 2019-10-11 14:15 | disposition home or self-care (01) | DRG 389 ==
LOC: ER 17:05 → MEDSURG 17:52
PROVIDERS: Emergency Medicine; Admitting Provider Surgery; Visit Provider Surgery
DX: K56.609 Unspecified intestinal obstruction, unspecified as to partial versus complete obstruction (principal); N39.0 Urinary tract infection, site not specified; F32.9 Major depressive disorder, single episode, unspecified; I10 Essential (primary) hypertension; I25.2 Old myocardial infarction; I25.10 Atherosclerotic heart disease of native coronary artery without angina pectoris; F17.210 Nicotine dependence, cigarettes, uncomplicated
CPT/HCPCS: 12345; 36415; 36416; 71045; 74019; 74022; 74177; 80053; 81001; 82962; 83605; 83690; 85025; 87077; 87086; 87186; 96372; 96375; 99283; A9270; C9113; J0696; J1170; J1200; J1650; J1815; J1885; J2405; J7030; Q9967

== ENCOUNTER → 2020-02-02 13:34 | Outpatient (BNVA) | payer BC, SELFPAY | PROVIDERS: Referring Provider Nurse Practitioner Family; Visit Provider Podiatrist Foot & Ankle Surgery | DX: S86.301D Unspecified injury of muscle(s) and tendon(s) of peroneal muscle group at lower leg level, right leg, subsequent encounter (principal); S93.401D Sprain of unspecified ligament of right ankle, subsequent encounter; X58.XXXD Exposure to other specified factors, subsequent encounter | CPT/HCPCS: 73600; 73630 ==

== ENCOUNTER 2020-03-04 07:44 | Outpatient (CLI) | payer BC, SELFPAY ==
--- NOTE | 2020-03-04 08:00 | MR_ITS ---
WS: [id number] MRI RIGHT ANKLE without CONTRAST. COMPARISON: RIGHT ankle and foot radiographs 02/02/2020. Multiplanar, multisequence imaging is performed without contrast. Marrow edema in several bones of the foot. There is a small amount of marrow edema scattered througho ut the talus, predominantly adjacent to the inferior talus/sinus Tarsi and the anterior talar dome. S cattered marrow edema throughout the calcaneus, predominantly along the plantar surface and towards t he lateral anterior calcaneus. There is a very large amount of marrow edema within the cuboid. On the T1 sequences there is an area of decreased intensity which I suspect is a fracture. Very small amoun t of marrow edema in the lateral cuneiform. Small amount of edema in the navicular and intermediate c uneiform. Distal tibia and fibula are negative. Moderate narrowing of the tibiotalar joint with mild loss of cartilage. No osteochondral lesion. Talofibular and deltoid ligaments are intact. Achilles is normal. Small osteophyte from the dorsal surface of the talonavicular articulation. Increased T2 signal in the sinus Tarsi. The cervical ligament is edematous and with increased T2 sign al. There is at least a partial tear of the cervical ligament and there is a small amount of adjacent low signal on the STIR sequences consistent with fibrosis and scarring. There is associated adjacent marrow edema in the talus. There is a small amount of increased fluid along the lateral aspect of the anterior talar process. Visualized portions of the flexor and extension tendons are normal. There is small amount of increase d fluid in the distal flexor hallucis longus tendon which is within normal limits. MR/MR ankle RT wo con* [id number] IMPRESSION: 1. Moderate amount of marrow edema throughout several bones of the foot includi ng the talus, calcaneus, cuboid, navicular, intermediate and lateral cuneiforms . 2. Suspect nondisplaced fracture in the cuboid. 3. Abnormal signal in the sinus Tarsi/tarsal canal and at least a partial tear of the cervical ligament. 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
== END 2020-03-04 07:45 | disposition home or self-care (01) ==
LOC: RADWPI 07:48
PROVIDERS: Visit Provider Podiatrist Foot & Ankle Surgery
DX: S99.911A Unspecified injury of right ankle, initial encounter (principal); R60.0 Localized edema; X58.XXXA Exposure to other specified factors, initial encounter
CPT/HCPCS: 73721

== ENCOUNTER 2020-03-21 11:00 | Outpatient (CLI) | payer BC, SELFPAY | END 2020-03-21 11:01 | disposition home or self-care (01) | LOC: SPT 11:00 | PROVIDERS: Visit Provider Podiatrist Foot & Ankle Surgery | DX: Z46.89 Encounter for fitting and adjustment of other specified devices (principal); S86.301D Unspecified injury of muscle(s) and tendon(s) of peroneal muscle group at lower leg level, right leg, subsequent encounter; X58.XXXD Exposure to other specified factors, subsequent encounter | CPT/HCPCS: 97760; L4361 ==

== ENCOUNTER → 2020-04-19 14:03 | Outpatient (BNVA) | payer BC, SELFPAY | PROVIDERS: Visit Provider Podiatrist Foot & Ankle Surgery | DX: S93.401D Sprain of unspecified ligament of right ankle, subsequent encounter (principal); S92.214D Nondisplaced fracture of cuboid bone of right foot, subsequent encounter for fracture with routine healing; W19.XXXD Unspecified fall, subsequent encounter; M25.571 Pain in right ankle and joints of right foot | CPT/HCPCS: 73630 ==

== ENCOUNTER → 2020-05-10 15:12 | Outpatient (BNVA) | payer BC, SELFPAY | PROVIDERS: Visit Provider Podiatrist Foot & Ankle Surgery | DX: M79.671 Pain in right foot (principal) | CPT/HCPCS: 73630 ==

== ENCOUNTER → 2020-07-20 14:12 | Outpatient (BNVA) | payer BC, SELFPAY | PROVIDERS: Visit Provider Podiatrist Foot & Ankle Surgery | DX: M25.571 Pain in right ankle and joints of right foot (principal); S92.214 Nondisplaced fracture of cuboid bone of right foot; S93.401D Sprain of unspecified ligament of right ankle, subsequent encounter; X58.XXXD Exposure to other specified factors, subsequent encounter | CPT/HCPCS: 73630 ==

== ENCOUNTER 2020-08-02 14:43 | Outpatient (CLI) | payer BC, SELFPAY ==
--- NOTE | 2020-08-02 14:55 | MR_ITS ---
WS: [id number] INDICATION: Cuboid fracture. Foot pain. TECHNIQUE: MRI of the right foot without gadolinium enhancement. Sagittal PD, axial T1, axial STIR, a xial PD, axial T2, sagittal STIR, coronal PD, and coronal T2 fat sat FINDINGS: MR of the right foot without gadolinium enhancement. Correlation prior MRI ankle February Previously described bone marrow signal abnormalities have essentially resolved compared to previous. Normal tibiotalar joint. Normal ankle mortise. Mild degenerative arthritis in the ankle mortise. Nor mal bone marrow signal in the talus. Normal medial and lateral malleolus. Normal bone marrow signal i n the calcaneus and talocalcaneal articulation. Distal Achilles is normal in appearance. Tenosynoviti s along the peroneal tendons. Partially visualized extensor and flexor compartment tendons appear unr emarkable. Normal bone marrow signal in the navicular. Hypertrophic spurring along the dorsal talonavicular wendie culation. Normal bone marrow signal today in the cuboid. No evidence of cuboid fracture. Fifth metata rsal is normal in appearance. Remainder of the tarsal bones are normal in appearance with mild degene rative arthritis. Normal plantar fascia and plantar aponeurosis. No other significant findings. MR/MR foot RT wo con* [id number] IMPRESSION: 1. Normal bone marrow signal in the cuboid. No evidence of cuboid fracture. 2. 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 Hypertrophic spurring at t he dorsal talonavicular articulation. 3. Normal bone marrow signal today in the talus and calcaneus. Mild degenerati ve arthritis of the ankle mortise. 4. Mild tenosynovitis along the peroneal tendons. 5. Previously described bone marrow signal abnormalities have resolved compare d to previous.
== END 2020-08-02 14:44 | disposition home or self-care (01) ==
LOC: RADSHAW 14:49
PROVIDERS: Visit Provider Podiatrist Foot & Ankle Surgery
DX: S92.214A Nondisplaced fracture of cuboid bone of right foot, initial encounter for closed fracture (principal); X58.XXXA Exposure to other specified factors, initial encounter; M19.071 Primary osteoarthritis, right ankle and foot; M65.871 Other synovitis and tenosynovitis, right ankle and foot
CPT/HCPCS: 73718

== ENCOUNTER 2020-09-28 15:58 | Outpatient (CLI) | payer BC, SELFPAY | END 2020-09-28 15:59 | disposition home or self-care (01) | LOC: SPT 15:58 | PROVIDERS: Visit Provider Podiatrist Foot & Ankle Surgery | DX: Z46.89 Encounter for fitting and adjustment of other specified devices (principal); S86.301D Unspecified injury of muscle(s) and tendon(s) of peroneal muscle group at lower leg level, right leg, subsequent encounter; X58.XXXD Exposure to other specified factors, subsequent encounter | CPT/HCPCS: 97760; L1902 ==

== ENCOUNTER 2020-10-26 16:26 | Emergency (ER) | payer BC, SELFPAY ==
[2020-10-26 16:33] VITALS: BP 138/107; PULSE 92; RESP 25; TEMP 36.2; O2SAT 96; BMI 22.3
--- NOTE | 2020-10-26 16:34 | ECG_ITS ---
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 Measurements Intervals [place] Rate: 102 P: -18 [place]: 137 QRS: -11 QRSD: 83 T: 3 QT: 330 QTc: 431 Interpretive Statements SINUS TACHYCARDIA MODERATE ST DEPRESSION [0.05+ mV ST DEPRESSION] Compared to ECG 08/09/2019 17:37:40 ST (T wave) deviation now present Sinus rhythm no longer present Electronically Signed On 10-27-2020 18:44:34 CDT by Tanvir Thrasher M.D. [id number]
--- NOTE | 2020-10-26 16:34 | XRR_ITS ---
PROCEDURE INFORMATION: Exam: XR Chest Exam date and time: 10/26/2020 4:52 PM Age: 60 years old Clinical indication: Other: Reduced breath sounds TECHNIQUE: Imaging protocol: XR of the chest. Views: 1 view. COMPARISON: CR XR chest 1V portable [id number] 10/09/2019 6:16 PM FINDINGS: Lungs: Unremarkable. No consolidation. Pleural spaces: Unremarkable. No pleural effusion. No pneumothorax. Heart/Mediastinum: Unremarkable. No cardiomegaly. Bones/joints: Lower cervical spine surgical hardware. Upper lumbar spine vertebroplasty changes. XR/XR chest 1V portable [id number] IMPRESSION: Negative for infiltrate
[2020-10-26 16:42] VITALS: BP 138/107; PULSE 85; RESP 16; O2SAT 96
[2020-10-26] MEDS: aspirin 81 mg Chew Tablet PO ×3 (16:50→16:52)
[2020-10-26 17:09] LABS: Add Urine Microscopic? NO; Charge for UA Resulting for Rev
[2020-10-26 17:42] LABS: Bilirubin Urine 1+ (Negative); Blood Urine Neg (Negative); Glucose Urine UA Norm (Normal); Ketones Urine 1+ (Negative); Leukocyte Esterase Urine Negative (Negative); Nitrate Urine Negative (Negative); Protein Urine Neg (Negative); Specific Gravity, Urine 1.015 (1.005-1.030); Urine Appearance Clear (CLEAR); Urine Color Straw (Yellow); Urobilinogen Urine 1 mg/dL (Negative); pH Urine 5 (5-7)
[2020-10-26 18:00] LABS: Basophils % 0.3 %; Eosinophils # 0.1 10^3/uL (0.0-0.8); Eosinophils % 1.3 %; Hematocrit 37.8 % (37.0-47.0); Hemoglobin 12.8 g/dL (11.5-15.3); Lymphocytes # 2.9 10^3/uL (0.8-4.8); Lymphocytes % 42.7 %; Mean Corpuscular HGB Conc 33.9 g/dL (30.0-36.0); Mean Corpuscular Hemoglobin 31.3 pg (28.0-34.0); Mean Corpuscular Volume 92.4 fL (81-99); Mean Platelet Volume 8.4 fL (7.4-10.4); Monocytes # 0.5 10^3/uL (0.2-0.9); Monocytes % 6.8 %; Neutrophils # 3.25 10^3/uL (1.8-7.7); Neutrophils % 48.5 %; Nucleated Red Blood Cells % 0 %; Platelet Count 468 10^3/cmm (130-400); Red Blood Count 4.09 10^6/uL (4.1-5.3); Red Cell Distribution Width 12.2 % (12.1-15.1); White Blood Count 6.7 10^3/uL (4.0-10.0)
[2020-10-26 18:19] LABS: Troponin(5th) Baseline 7 ng/L (0-10)
[2020-10-26 18:29] LABS: Alanine Aminotransferase 27 U/L (0-33); Albumin Level 4.5 g/dL (3.5-5.2); Alkaline Phosphatase 77 IU/L (35-105); Aspartate Amino Transferase 21 U/L (0-32); Blood Urea Nitrogen 9 mg/dL (8-23); Calcium 9.3 mg/dL (8.5-10.5); Carbon Dioxide 26 mmol/L (22-29); Chloride 103 mmol/L (98-107); Globulin 2.7 g/dL (1.3-4.6); Glomerular Filtration Rate 101.6 mL/min (90-130); Glucose 105 mg/dL (65-115); NT Pro B Type Natriuretic Pept 248 pg/mL (0-125); Osmolality Calculated 287 mOsm/kg (285-295); Sodium 139 mmol/L (136-145); Total Bilirubin 0.4 mg/dL (0.15-1.2); Total Protein 7.2 g/dL (6.6-8.7)
--- NOTE | 2020-10-26 18:34 | ECG_ITS ---
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 Measurements Intervals [place] Rate: 61 P: 35 AK: 163 QRS: 2 QRSD: 84 T: 12 QT: 413 QTc: 418 Interpretive Statements SINUS RHYTHM Compared to ECG 10/26/2020 16:30:06 Sinus tachycardia no longer present ST (T wave) deviation no longer present Electronically Signed On 10-27-2020 19:00:36 CDT by Tanvir Thrasher M.D. [id number]
[2020-10-26 18:51] LABS: D Dimer 1.91 ug/mIFEU (0-0.59)
--- NOTE | 2020-10-26 18:54 | CTR_ITS ---
PROCEDURE INFORMATION: Exam: CTA Chest With Contrast Exam date and time: 10/26/2020 7:08 PM Age: 60 years old Clinical indication: Sternal or substernal pain; Prior surgery; Surgery type: Neck. ; Patient HX: Smoker; Additional info: Chest pain. Elevated d dimer TECHNIQUE: Imaging protocol: Computed tomographic angiography of the chest with contrast. 3D rendering (Not supervised by radiologist): MIP and/or 3D reconstructed images were created by the technologist. Radiation optimization: All CT scans at this facility use at least one of these dose optimization techniques: automated exposure control; mA and/or kV adjustment per patient size (includes targeted exams where dose is matched to clinical indication); or iterative reconstruction. Contrast material: OMNI 350; Contrast volume: 67 ml; Contrast route: INTRAVENOUS (IV); COMPARISON: CR (CHEST, ) 10/26/2020 4:59 PM RADIATION DOSE METRICS: Total DLP (mGy-cm): 455.95 FINDINGS: Pulmonary arteries: The pulmonary arteries are adequately opacified for evaluation to the subsegmental level. There is no filling defect to suggest embolism. Aorta: There is mild aortic atherosclerotic disease. Lungs: Lungs are clear. Pleural spaces: There is no pleural effusion or pneumothorax. Heart: Heart size is normal. There is no pericardial effusion. There is mild coronary artery calcification. Lymph nodes: There is no mediastinal or hilar lymphadenopathy. Bones/joints: The visible portions of the clavicles and shoulders, scapula, ribs, and sternum are unremarkable. T12 vertebroplasty and mild chronic compression fracture noted. Soft tissues: The extrathoracic soft tissues are unremarkable. Other findings: Visible structures in the upper abdomen are unremarkable. CT/CT angio chest PE protcl [id number] IMPRESSION: No pulmonary embolism. Radiation Dose CTDIVOL = (mGy): DLP = 455.95 (mGy-cm)
[2020-10-26 19:12] VITALS: BP 130/86; PULSE 76; RESP 16; O2SAT 98
[2020-10-26] MEDS: iohexol 350 mg/mL 100 mL Btl IV (19:33)
[2020-10-26 20:45] LABS: Troponin 5 2HR 6.66 ng/L (0-10)
[2020-10-26 20:46] LABS: Troponin 5 2HR Delta -0.34 ABS# (0-10)
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
== END 2020-10-26 21:54 | disposition home or self-care (01) ==
PROVIDERS: Emergency Provider Family Medicine
DX: R07.89 Other chest pain (principal); Z79.84 Long term (current) use of oral hypoglycemic drugs; Z79.82 Long term (current) use of aspirin; I10 Essential (primary) hypertension; I25.2 Old myocardial infarction; F17.210 Nicotine dependence, cigarettes, uncomplicated
CPT/HCPCS: 36415; 71045; 71275; 80053; 81003; 83880; 84484; 85025; 85378; 93005; 99284; Q9967

== ENCOUNTER 2020-12-30 10:23 | Inpatient (IN) | payer BC, SELFPAY ==
[2020-12-30] VITALS (11 sets, daily range): BP systolic 106–149; BP diastolic 73–92; PULSE 87–99; RESP 15–22; TEMP 36.5; O2SAT 94–99; BMI 21.3
--- NOTE | 2020-12-30 13:31 | PC.NURSE ---
PT ARRIVED FROM WAITING ROOM TO ED 7 AT 1330
--- NOTE | 2020-12-30 13:32 | W.ED.ABDPA2 ---
HPI - Abdominal Pain General: Chief Complaint: ER Hold Stated Complaint: abd pain, constipation, vomiting Time Seen by Provider: 12/30/20 13:30 History of Present Illness: HPI narrative: Ms. Schulte is a 60-year-old lady with significant past medical history of multiple abdominal surgeries and history of bowel obstructions who presents to emergency department due to abdominal pain and obstipation. Symptom onset was subacute approximately 3 days ago. She denies specific provoking factors including possibility of foodborne illness. She tried home care including multiple enemas and magnesium citrate without significant relief. Over the past day she has had increased episodes of nausea and vomiting. The location and intensity of her abdominal pain is diffuse and severe. It is aching in quality. Any palpation makes her symptoms worse. She denies other signs of systemic illness. No urinary symptoms. She has had similar episodes in the past. Review of Systems General: Reports: 10 or more systems reviewed and unremarkable except in HPI and below Narrative: CONSTITUTIONAL: denies fever, fatigue, weakness EYES - denies pain, denies loss of vision EARS - denies ear issues. NOSE - denies congestion or rhinorrhea. THROAT - denies sore throat or difficulty swallowing. CARDIOVASCULAR - denies chest pain and palpitations RESPIRATORY - denies shortness of breath and cough GASTROINTESTINAL -abdominal pain and obstipation as noted in HPI. GENITOURINARY - denies dysuria or urinary frequency MUSCULOSKELETAL- denies deformity or pain SKIN - denies rashes or new changed skin lesions NEUROLOGIC - denies focal weakness or sensory changes HEMATOLOGIC/LYMPHATIC - denies easy bruising or lymphadenopathy. [facility] ED PFSH: Medical History Depression HTN (hypertension) with goal to be determined Myocardial infarction acute Pancreatitis SBO (small bowel obstruction) Surgical History H/O exploratory laparotomy H/O splenectomy History of appendectomy History of incisional hernia repair S/P cardiac cath S/P cholecystectomy S/P DONNA-BSO Status post colonoscopy Social History Smoking and tobacco status: current every day smoker Physical Exam Narrative: EXAM NARRATIVE: GENERAL/CONSTITUTIONAL - uncomfortable appearing, nontoxic. Eyes - PERRL, no conjunctival injection ENMT - Atraumatic external nose and ears. Moist mucous membranes NECK - supple. trachea midline CARDIOVASCULAR - regular rate and rhythm. Peripheral pulses 2+ and equal RESPIRATORY -clear to auscultation bilaterally. No retractions or accessory muscle use. ABDOMEN/GI - generalized tenderness palpation of the abdomen. There is previous surgical scars from remote surgeries. There is mild tenderness to percussion however no evidence of peritonitis. MSK - Extremities without obvious deformity or tenderness to palpation SKIN - Warm, Dry NEURO - alert and appropriately oriented. Moves all extremities equally. PSYCH - Appropriate mood and affect Course ED course: - Patient was seen and evaluated by me at bedside - Patient placed on cardiac monitors, IV access obtained - Initial evaluation notable for distress due to pain, nontoxic appearance - Labs and imaging obtained and reviewed - Analgesia given and antiemetic given - Labs notable for no leukocytosis, normal lactate. - Imaging notable for dilation and inflammation of the small bowel without identified transition point. Given level of hyperemia antibiotics ordered. The patient did have a localized redness reaction to ciprofloxacin and was treated for allergic reaction without evidence of progression or multisystem involvement including respiratory involvement. - Upon serial reexamination after treatment the patient was mildly improved with analgesia - Case discussed with general surgery service secretary board of commissioners, NG tube placed. - Based on patient history, evaluation, labs, and imaging as interpreted the most likely cause of the patient's condition is clinical bowel obstruction and enteritis - The results of ED evaluation were discussed with the patient including plan for admission due to requirement for level of care not available if discharged to prevent significant worsening/deterioration. - Admitting service was contacted and Dr Raman with hospitalist internal medicine service agreed to admit the patient - Patient was admitted without further deterioration or significant events. Vital Signs: Vital signs: Vital Signs Temperature 98.3 F 12/31/20 12:00 Pulse Rate 72 12/31/20 12:00 Respiratory Rate 16 12/31/20 12:43 Blood Pressure 137/93 12/31/20 12:00 Pulse Oximetry 99 12/31/20 12:00 MDM - Abdominal Pain Medical Records: Attestation: I reviewed the patient's medical records. Lab Data: Attestation: I reviewed the patient's lab results. Labs: Lab Results 12/30/20 12/30/20 12/30/20 Range/Units 13:56 13:56 13:56 WBC 10.5 H (4.0-10.0) 10^3/ uL RBC 4.31 (4.1-5.3) 10^6/u L Hgb 13.5 (11.5-15.3) g/dL Hct 39.1 (37.0-47.0) % MCV 90.7 (81-99) fL MCH 31.3 (28.0-34.0) pg MCHC 34.5 (30.0-36.0) g/dL RDW 12.2 (12.1-15.1) % Plt Count 419 H (130-400) 10^3/c mm MPV 8.5 (7.4-10.4) fL Neut % (Auto) 55.8 % Lymph % (Auto) 34.7 % [place] % (Auto) 7.9 % Eos % (Auto) 1.1 % Baso % (Auto) 0.2 % Neut # (Auto) 5.85 (1.8-7.7) 10^3/u L Lymph # (Auto) 3.6 (0.8-4.8) 10^3/u L [place] # (Auto) 0.8 (0.2-0.9) 10^3/u L Eos # (Auto) 0.1 (0.0-0.8) 10^3/u L Baso # (Auto) 0.0 (0.0-0.1) 10^3/u L Nucleated RBC % (a uto) 0 % Nucleated RBCs # 0.0 /100WBC Sodium 140 (136-145) mmol/L Potassium 3.5 (3.5-5.1) mmol/L Chloride 106 (98-107) mmol/L Carbon Dioxide 24 (22-29) mmol/L Anion Gap 13.5 (5-19) BUN 9 (8-23) mg/dL Creatinine 0.4 L (0.5-0.9) mg/dL GFR Calculation 162.3 H (90-130) mL/min Glucose 110 (65-115) mg/dL POC Glucose (70-110) mg/dL Calculated Osmolal ity 289 (285-295) mOsm/k g Lactate 0.9 (0.5-2.2) mmol/L Calcium 8.5 (8.5-10.5) mg/dL Total Bilirubin 0.8 (0.15-1.2) mg/dL AST 16 (0-32) U/L ALT 22 (0-33) U/L Alkaline Phosphata se 71 (35-105) IU/L Total Protein 7.1 (6.6-8.7) g/dL Albumin 4.2 (3.5-5.2) g/dL Globulin 2.9 (1.3-4.6) g/dL Lipase 12 L (13-60) U/L 12/30/20 Range/Units 18:31 WBC (4.0-10.0) 10^3/ uL RBC (4.1-5.3) 10^6/u L Hgb (11.5-15.3) g/dL Hct (37.0-47.0) % MCV (81-99) fL MCH (28.0-34.0) pg MCHC (30.0-36.0) g/dL RDW (12.1-15.1) % Plt Count (130-400) 10^3/c mm MPV (7.4-10.4) fL Neut % (Auto) % Lymph % (Auto) % [place] % (Auto) % Eos % (Auto) % Baso % (Auto) % Neut # (Auto) (1.8-7.7) 10^3/u L Lymph # (Auto) (0.8-4.8) 10^3/u L [place] # (Auto) (0.2-0.9) 10^3/u L Eos # (Auto) (0.0-0.8) 10^3/u L Baso # (Auto) (0.0-0.1) 10^3/u L Nucleated RBC % (a uto) % Nucleated RBCs # /100WBC Sodium (136-145) mmol/L Potassium (3.5-5.1) mmol/L Chloride (98-107) mmol/L Carbon Dioxide (22-29) mmol/L Anion Gap (5-19) BUN (8-23) mg/dL Creatinine (0.5-0.9) mg/dL GFR Calculation (90-130) mL/min Glucose (65-115) mg/dL POC Glucose 149 H (70-110) mg/dL Calculated Osmolal ity (285-295) mOsm/k g Lactate (0.5-2.2) mmol/L Calcium (8.5-10.5) mg/dL Total Bilirubin (0.15-1.2) mg/dL AST (0-32) U/L ALT (0-33) U/L Alkaline Phosphata se (35-105) IU/L Total Protein (6.6-8.7) g/dL Albumin (3.5-5.2) g/dL Globulin (1.3-4.6) g/dL Lipase (13-60) U/L Imaging Data ^: CT Abd/Pel: Attestation: I personally reviewed and interpreted this imaging study as follows: My impression: No free air, dilated small bowel loops. Radiologist's impression: IMPRESSION: 1. Abnormal small bowel. Jejunal loops are markedly dilated with hypervascularity. The distal small bowel loops are fluid-filled without hyperemia. Diffuse enteritis and ischemic disease should be considered. Surgical resection sites in the mid and distal small bowel which have been previously seen. 2. No colon obstruction. 3. Prior cholecystectomy. Discharge Plan Discharge Patient Disposition: Admitted As Inpatient Admit Provider: Cisco Raman Condition: Stable Coding Level of Care Code ED Academic Affairs Director for Sonya Patrick
--- NOTE | 2020-12-30 13:44 | CT_ITS ---
WS: [id number] CT ABDOMEN AND PELVIS WITH CONTRAST HISTORY: abdominal pain, obstipation TECHNIQUE: Imaging performed of the abdomen and pelvis with IV contrast. Single phase imaging of the abdomen. Coronal and sagittal reformats are submitted. All CT scans at [facility] use at least one of these dose optimization techniques: automated exposure control; mA and/or kV adjustment per patient size (includes targeted exams where dose is matched to clinical indication); or iterativ e reconstruction. IV CONTRAST: Omnipaque 300; 95 mL IV. Oral contrast: No DLP: 710.44 mGy.cm COMPARISON: 10/09/2019 Lower thorax: Chronic emphysematous changes at the lung bases. Heart is normal size. Small hiatal her maegan. Liver/biliary system: Normal size with no intrahepatic dilatation. Gallbladder: Status post cholecystectomy. Pancreas: Moderate diffuse pancreatic atrophy. Very similar to the prior study. No mass or duct dilat ation. Spleen: Normal size spleen. Low-attenuation in the posterior spleen is stable. Adrenal glands: Normal. Right kidney: Normal. Left kidney: Normal. Aorta: Moderate atherosclerosis with no aneurysm. Lymphadenopathy: None. Free fluid: None. GI tract: Prior appendectomy. Markedly abnormal small bowel loops. There is diffuse mucosal thickenin g of predominantly the jejunum. Mucosal thickening is also increased density and hyperemic. There is dilatation of the lumen. Within the more distal small bowel there is simple fluid distention. Surgica l sutures are noted in the central abdomen from prior small bowel surgery. Potential changing caliber in the central abdomen, image 57 of series 2 but there is dilatation of small bowel on both sides of this possible stricture. No free air. Abdominal wall: Postsurgical changes along the anterior abdominal wall. Pelvis: No free fluid or adenopathy. Bones: T12 vertebroplasty. CT/CT abdomen pelvis w con* [id number] IMPRESSION: 1. Abnormal small bowel. Jejunal loops are markedly dilated with hypervascular ity. The distal small bowel loops are fluid-filled without hyperemia. Diffuse e nteritis and ischemic disease should be considered. Surgical resection sites in the mid and distal small bowel which have been previously seen. 2. No colon obstruction. 3. Prior cholecystectomy. Notified Girish Mckinley MD at 12/30/2020 2:36 PM.
[2020-12-30 14:05] LABS: Basophils % 0.2 %; Eosinophils # 0.1 10^3/uL (0.0-0.8); Eosinophils % 1.1 %; Hematocrit 39.1 % (37.0-47.0); Hemoglobin 13.5 g/dL (11.5-15.3); Lymphocytes # 3.6 10^3/uL (0.8-4.8); Lymphocytes % 34.7 %; Mean Corpuscular HGB Conc 34.5 g/dL (30.0-36.0); Mean Corpuscular Hemoglobin 31.3 pg (28.0-34.0); Mean Corpuscular Volume 90.7 fL (81-99); Mean Platelet Volume 8.5 fL (7.4-10.4); Monocytes # 0.8 10^3/uL (0.2-0.9); Monocytes % 7.9 %; Neutrophils # 5.85 10^3/uL (1.8-7.7); Neutrophils % 55.8 %; Nucleated Red Blood Cells % 0 %; Platelet Count 419 10^3/cmm (130-400); Red Blood Count 4.31 10^6/uL (4.1-5.3); Red Cell Distribution Width 12.2 % (12.1-15.1); White Blood Count 10.5 10^3/uL (4.0-10.0)
[2020-12-30] MEDS: iohexol 300 mg/mL 100 mL Btl IV (14:05)
[2020-12-30 14:34] LABS: Alanine Aminotransferase 22 U/L (0-33); Albumin Level 4.2 g/dL (3.5-5.2); Alkaline Phosphatase 71 IU/L (35-105); Anion Gap 13.5 (5-19); Aspartate Amino Transferase 16 U/L (0-32); Blood Urea Nitrogen 9 mg/dL (8-23); Calcium 8.5 mg/dL (8.5-10.5); Carbon Dioxide 24 mmol/L (22-29); Chloride 106 mmol/L (98-107); Globulin 2.9 g/dL (1.3-4.6); Glomerular Filtration Rate 162.3 mL/min (90-130); Glucose 110 mg/dL (65-115); Lipase 12 U/L (13-60); Osmolality Calculated 289 mOsm/kg (285-295); Potassium 3.5 mmol/L (3.5-5.1); Sodium 140 mmol/L (136-145); Total Bilirubin 0.8 mg/dL (0.15-1.2); Total Protein 7.1 g/dL (6.6-8.7)
[2020-12-30] MEDS: ondansetron 2 mg/ML SDV 2 mL 4 MG IVP ×2 (14:37→15:11)
[2020-12-30] MEDS: fentaNYL 50 mcg/mL INJ 2mL IVP ×3 (14:38→18:37)
[2020-12-30] MEDS: sodium chloride 0.9% 500 ML IV (14:38)
[2020-12-30 14:53] LABS: Lactate (Lactic Acid level) 0.9 mmol/L (0.5-2.2)
[2020-12-30] MEDS: metroNIDAZOLE IV 500 MG/100 ML PREMIX 100 MG IV (15:03)
[2020-12-30] MEDS: ciprofloxacin 400 MG/200 ML PREMIX 200 MG IV (15:16)
--- NOTE | 2020-12-30 16:07 | P.HP_ITS ---
Providers/Chief Complaint Admitting Physician: Cisco Raman MD Chief Complaint: ABD PAIN, STATES FEELS LIKE PREV BLOCKAGE History of Present Illness Yessi Schulte is a 60 year old female with past medical history of hypertension, multiple abdominal surgeries, came in with chief complaint of worsening nausea , vomiting, and generalized abdominal, started 3 days ago, it was worst today to the point that she was not able to keep anything down. Upon arrival in the ER: Worked up for above-mentioned complaint: Imaging studies: CT abdomen pelvis w con: Abnormal small bowel. Jejunal loops are markedly dilated with hypervascularity. The distal small bowel loops are fluid-filled without hyperemia. Diffuse enteritis and ischemic disease should be considered. NG tube was placed in the ER. General surgery was consulted. Review of Systems Const: Denies: fever(s), chills, body aches, change in appetite or diaphoresis Card: Denies: palpitations, edema, swelling of feet/ankles, dyspnea on exertion, orthopnea or leg pain with exertion Resp: Denies: dyspnea, productive cough, wheezing or pain on inspiration Musc: Denies: extremity pain or extremity swelling Neuro: Denies: headache(s), difficulty walking or confusion Medications/Allergies Home Medications Medication Instructions Recorded Confirmed Last Taken Type gabapentin 300 mg PO TID 10/09/19 12/30/20 10/26/20 12:30 History isosorbide mononitrate 30 mg PO BEDTIME 10/09/19 12/30/20 12/26/20 History metformin 500 mg PO QPM 10/09/19 12/30/20 12/26/20 History metoprolol succinate 12.5 mg PO BID 10/09/19 12/30/20 12/26/20 History venlafaxine 75 mg PO BEDTIME 10/09/19 12/30/20 10/25/20 History cam boot #1 ea 03/21/20 12/30/20 Unknown Rx crutch #2 each 03/21/20 12/30/20 Unknown Rx bone stimulator #1 ea 05/10/20 12/30/20 Unknown Rx ASO on the right #1 ea 09/28/20 12/30/20 Unknown Rx Sole Supports #1 ea 09/28/20 12/30/20 Unknown Rx albuterol sulfate 2.5 mg INHALATION PRN 10/26/20 12/30/20 Unknown History aspirin [Aspir-81] 81 mg PO BEDTIME 10/26/20 12/30/20 12/26/20 History diphenhydramine HCl [Benadryl] 25 mg PO PRN 10/26/20 12/30/20 10/26/20 History nitroglycerin [Nitrostat] 0.4 mg SUBLINGUAL Q5M PRN 10/26/20 12/30/20 10/26/20 16:00 History Allergies Allergy/AdvReac Type Severity Reaction Status Date / Time lidocaine Allergy Severe ALGY-Swell Verified 10/26/20 16:33 Lip/Tongue/Throat ciprofloxacin [From Cipro] Allergy ALGY-Redness Verified 12/30/20 16:37 of Skin codeine Allergy ADR-Nausea Verified 10/26/20 16:33 morphine Allergy ADR-Vomitin Verified 10/26/20 16:33 g Penicillins Allergy ALGY-Swell Verified 10/26/20 16:33 Lip/Tongue/Throat procaine [From Novocain] Allergy ALGY-Swell Verified 10/26/20 16:33 Lip/Tongue/Throat prochlorperazine Allergy ADR-Muscle Verified 10/26/20 16:33 [From Compazine] Pain PFSH Acute PFSH: Medical History (Updated 12/30/20 @ 19:24 by Cisco Raman MD) Depression HTN (hypertension) with goal to be determined Myocardial infarction acute Pancreatitis SBO (small bowel obstruction) Surgical History H/O exploratory laparotomy H/O splenectomy History of appendectomy S/P cardiac cath S/P cholecystectomy Status post colonoscopy Social History Smoking and tobacco status: current every day smoker Vitals/I&O/Wt Last Vital Signs Temp 97.7 F 12/30/20 10:49 Pulse 87 12/30/20 15:00 Resp 15 12/30/20 15:12 BP 128/73 12/30/20 15:00 Pulse Ox 98 12/30/20 15:12 Weight last 48 hrs Weight 51.256 kg Physical Exam Const: COMMON NORMALS: patient oriented x3 HENMT: COMMON NORMALS: normocephalic and atraumatic HEAD & SCALP: normocephalic and atraumatic Resp: COMMON NORMALS: clear to auscultation bilaterally EFFORT & INSPECTION: Yes symmetric chest movement AUSCULTATION: clear to auscultation bilaterally Cardio: COMMON NORMALS: S2 normal heart sound present, No gallops present (Cardio), No murmurs present (Cardio), No rub (Cardio) and Peripheral pulses 2+ throughout RATE: regular rate RHYTHM: regular rhythm HEART SOUNDS: S1 normal heart sound present and S2 normal heart sound present PERIPHERAL PULSES: Peripheral pulses 2+ throughout GI: OTHER: Hypoactive BS, Generalized abdominal tenderness. No guarding, no rigidity, no rebound tenderness. Extremity: COMMON NORMALS: no clubbing, cyanosis or edema and no pedal edema Neuro: COMMON NORMALS: patient oriented x3 Data : 12/30/20 13:56 12/30/20 13:56 A&P Assessment and plan (1) SBO (small bowel obstruction): Small bowel obstruction: N.p.o. NG tube Pain management IV hydration Appreciate general surgery recommendation. Status: Acute (2) HTN (hypertension) with goal to be determined: Status: Acute Attestations Medical Necessity Statement*: Patient needs to be in hospital for the management of SBO.Anticipated LOS Greater then 2 midnights. Coding Level of Care Code Acute Delivery Table Operator for [facility] Diagnoses SBO (small bowel obstruction) K56.609 HTN (hypertension) with goal to be determined I10
[2020-12-30] MEDS: enoxaparin 40 mg/0.4 mL Syringe SUBCUT (16:45)
[2020-12-30] MEDS: D5-NS 0.45% + KCL 20 mEq 20 MEQ/1,000 ML BAG 75 MEQ IV (16:45)
[2020-12-30] MEDS: diphenhydrAMINE 50 mg/mL SDV 1mL 25 MG IVP (16:45)
[2020-12-30 18:34] LABS: Glucose Point of Care 149 mg/dL (70-110)
[2020-12-30] MEDS: morphine 4 mg/mL SDV 1 mL 2 MG IVP ×2 (19:30→22:05)
[2020-12-30] MEDS: HYDROmorphone 1 mg/mL INJ 1 mL 0.4 MG IVP (23:45)
[2020-12-31] VITALS (10 sets, daily range): BP systolic 122–137; BP diastolic 65–93; PULSE 67–102; RESP 16–20; TEMP 36.6–36.8; O2SAT 96–100
[2020-12-31] MEDS: HYDROmorphone 1 mg/mL INJ 1 mL 0.4 MG IVP ×5 (04:27→21:05)
[2020-12-31 05:00] LABS: Basophils % 0.2 %; Hematocrit 35.4 % (37.0-47.0); Hemoglobin 12.1 g/dL (11.5-15.3); Mean Corpuscular HGB Conc 34.2 g/dL (30.0-36.0); Mean Corpuscular Hemoglobin 31.3 pg (28.0-34.0); Mean Corpuscular Volume 91.7 fL (81-99); Mean Platelet Volume 8.6 fL (7.4-10.4); Monocytes # 0.1 10^3/uL (0.2-0.9); Neutrophils # 3.83 10^3/uL (1.8-7.7); Neutrophils % 77.4 %; Nucleated Red Blood Cells % 0 %; Platelet Count 380 10^3/cmm (130-400); Red Blood Count 3.86 10^6/uL (4.1-5.3); Red Cell Distribution Width 12.3 % (12.1-15.1)
[2020-12-31 05:37] LABS: Alanine Aminotransferase 20 U/L (0-33); Alkaline Phosphatase 65 IU/L (35-105); Anion Gap 12.8 (5-19); Aspartate Amino Transferase 13 U/L (0-32); Blood Urea Nitrogen 6 mg/dL (8-23); Calcium 8.6 mg/dL (8.5-10.5); Carbon Dioxide 26 mmol/L (22-29); Chloride 108 mmol/L (98-107); Globulin 2.5 g/dL (1.3-4.6); Glomerular Filtration Rate 125.4 mL/min (90-130); Glucose 159 mg/dL (65-115); Osmolality Calculated 295 mOsm/kg (285-295); Potassium 4.8 mmol/L (3.5-5.1); Sodium 142 mmol/L (136-145); Total Bilirubin 0.4 mg/dL (0.15-1.2); Total Protein 6.5 g/dL (6.6-8.7)
[2020-12-31 06:10] LABS: Add Urine Microscopic? NO; Charge for UA Resulting for Rev
[2020-12-31 06:20] LABS: Bilirubin Urine Neg (Negative); Blood Urine Neg (Negative); Glucose Urine UA Norm (Normal); Ketones Urine Negative (Negative); Leukocyte Esterase Urine Negative (Negative); Nitrate Urine Negative (Negative); Protein Urine Neg (Negative); Urine Appearance Clear (CLEAR); Urine Color Yellow (Yellow); Urobilinogen Urine Norm (Negative); pH Urine 5 (5-7)
[2020-12-31 07:13] LABS: Glucose Point of Care 149 mg/dL (70-110)
[2020-12-31] MEDS: D5-NS 0.45% + KCL 20 mEq 20 MEQ/1,000 ML BAG 75 MEQ IV (08:36)
--- NOTE | 2020-12-31 08:40 | PC.NURSE ---
patient stated felt better after pain medication, no acute distress noted at this time.
--- NOTE | 2020-12-31 10:00 | PC.NURSE ---
patient resting comfortably at this time.
--- NOTE | 2020-12-31 10:06 | PC.NURSE ---
PT SEDATED, UNABLE TO ANSWER QUESTIONS OR PARTICIPATE AT THIS TIME.
[2020-12-31 12:04] LABS: Glucose Point of Care 132 mg/dL (70-110)
--- NOTE | 2020-12-31 14:36 | P.CONIM_ITS ---
Providers/Reason For Consult Consulting Physician/Specialty*: Cisco Raman Reason for Consult*: sbo Attending Physician: Cisco Raman MD History of Present Illness History of Present Illness Yessi Schulte is a 60 year old female who presented to the hospital yesterday with a 3-day history of abdominal pain nausea vomiting. She reports that she has had multiple small bowel obstructions in the past. She reports that she has had 20 or 21 different laparotomies for small bowel obstructions. This all began 36 years ago when she had a ruptured uterus. She has had a total abdominal hysterectomy with bilateral salpingo-oophorectomy, and an open cholecystectomy, and appendectomy and an incisional hernia repair. She reports that the pain began suprapubically as a burning type of pain at her incision. Tried using enemas to no relief. She denies any fever or chills. She does not believe she ate anything bad and has no sick contacts. No recent travel. Palpation makes pain worse nothing makes it better. She reports that she has not passed flatus or had a bowel movement the last couple of days. Review of Systems General: Reports: 10 or more systems reviewed and unremarkable except in HPI and below Meds/Allergies Home Medications and Allergies Home Medications Medication Instructions Recorded Confirmed Last Taken Type gabapentin 300 mg PO TID 10/09/19 12/30/20 10/26/20 12:30 History isosorbide mononitrate 30 mg PO BEDTIME 10/09/19 12/30/20 12/26/20 History metformin 500 mg PO QPM 10/09/19 12/30/20 12/26/20 History metoprolol succinate 12.5 mg PO BID 10/09/19 12/30/20 12/26/20 History venlafaxine 75 mg PO BEDTIME 10/09/19 12/30/20 10/25/20 History cam boot #1 ea 03/21/20 12/30/20 Unknown Rx crutch #2 each 03/21/20 12/30/20 Unknown Rx bone stimulator #1 ea 05/10/20 12/30/20 Unknown Rx ASO on the right #1 ea 09/28/20 12/30/20 Unknown Rx Sole Supports #1 ea 09/28/20 12/30/20 Unknown Rx albuterol sulfate 2.5 mg INHALATION PRN 10/26/20 12/30/20 Unknown History aspirin [Aspir-81] 81 mg PO BEDTIME 10/26/20 12/30/20 12/26/20 History diphenhydramine HCl [Benadryl] 25 mg PO PRN 10/26/20 12/30/20 10/26/20 History nitroglycerin [Nitrostat] 0.4 mg SUBLINGUAL Q5M PRN 10/26/20 12/30/20 10/26/20 16:00 History Allergies Allergy/AdvReac Type Severity Reaction Status Date / Time lidocaine Allergy Severe ALGY-Swell Verified 10/26/20 16:33 Lip/Tongue/Throat ciprofloxacin [From Cipro] Allergy ALGY-Redness Verified 12/30/20 16:37 of Skin codeine Allergy ADR-Nausea Verified 10/26/20 16:33 morphine Allergy ADR-Vomitin Verified 10/26/20 16:33 g Penicillins Allergy ALGY-Swell Verified 10/26/20 16:33 Lip/Tongue/Throat procaine [From Novocain] Allergy ALGY-Swell Verified 10/26/20 16:33 Lip/Tongue/Throat prochlorperazine Allergy ADR-Muscle Verified 10/26/20 16:33 [From Compazine] Pain Current Medications Current Medications Generic Name Dose Route Start Last Admin Trade Name Freq PRN Reason Stop Dose Admin Enoxaparin Sodium 40 mg 12/30/20 16:15 12/30/20 16:45 Enoxaparin 40 Mg/0.4 Ml Syringe SUBCUT 40 mg Q24H ISABELLA Administration Fentanyl 50 mcg 12/30/20 13:44 12/30/20 18:37 Fentanyl 50 Mcg/Ml Inj 2ml IVP 50 mcg Q30M PRN Administration MODERATE PAIN Hydromorphone HCl 0.4 mg 12/30/20 22:40 12/31/20 12:43 Hydromorphone 1 Mg/Ml Inj 1 Ml IVP 0.4 mg Q4H PRN Administration PAIN Insulin Aspart 0 unit 12/30/20 18:00 12/31/20 12:02 Insulin Aspart 100 Unit/1 Ml SUBCUT Not Given TIDWM ISABELLA Protocol PFSH Acute PFSH: Medical History Depression HTN (hypertension) with goal to be determined Myocardial infarction acute Pancreatitis SBO (small bowel obstruction) Surgical History H/O exploratory laparotomy H/O splenectomy History of appendectomy History of incisional hernia repair S/P cardiac cath S/P cholecystectomy S/P DONNA-BSO Status post colonoscopy Social History Smoking and tobacco status: current every day smoker Vitals/I&O/Wt Last Vital Signs Temp 98.3 F 12/31/20 12:00 Pulse 72 12/31/20 12:00 Resp 16 12/31/20 12:43 BP 137/93 12/31/20 12:00 Pulse Ox 99 12/31/20 12:00 12/30/20 12/31/20 12/31/20 22:59 06:59 14:59 Intake Total 300 / 300 1000 / 1300 Output Total 450 / 450 Balance 300 / 300 1000 / 1300 -450 / -450 Weight last 48 hrs Weight 113 lb Physical Exam Const: COMMON NORMALS: no acute distress, patient oriented x3 and well nourished HENMT: COMMON NORMALS: normocephalic and atraumatic HEAD & SCALP: normocephalic and atraumatic Chest: COMMONS NORMALS: normal inspection of the chest and normal palpation of entire chest wall Resp: COMMON NORMALS: normal respiratory effort, No retractions and No use of accessory muscles Cardio: COMMON NORMALS: regular rate and regular rhythm RATE: regular rate RHYTHM: regular rhythm GI: OTHER: Abdomen is soft, moderately distended, mild diffuse tenderness to palpation. There is a large midline scar Neuro: COMMON NORMALS: patient oriented x3 A&P Assessment and plan (1) SBO (small bowel obstruction): Change IV fluids to normal NG tube to low intermittent suction Patient may have ice cubes while on suction Ambulate for 30 minutes with tube clamped times a day Rest of electrolyte management We will continue to follow the patient. Hopefully the NG tube will open up her intestines. If this does not happen next couple of days we will have to consider surgery. 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
--- NOTE | 2020-12-31 14:58 | XRR_ITS ---
PROCEDURE INFORMATION: Exam: XR Abdomen Exam date and time: 12/31/2020 2:58 PM Age: 60 years old Clinical indication: Device placement; Gi device; Nasogastric tube; Other: Sbo TECHNIQUE: Imaging protocol: XR of the abdomen. Views: 3 or more views. COMPARISON: CR (CHEST, ) 10/26/2020 4:59 PM FINDINGS: Tubes, catheters and devices: Nasogastric tube tip below the left diaphragm in the region of the gastric bubble. Gastrointestinal tract: Normal. No bowel dilation. Intraperitoneal space: Normal. No free air. Bones/joints: Unremarkable for age. XR/XR acute abdomen series [id number] IMPRESSION: Nasogastric tube tip below the left diaphragm in the region of the gastric bubble.
[2020-12-31] MEDS: sodium chloride 0.9% 1,000 ML 150 ML IV ×2 (15:14→21:43)
--- NOTE | 2020-12-31 15:58 | P.PN_ITS ---
Subjective Subjective: Interval history: Patient was seen and examined today, no acute events overnight, N.G Tube to LIS, Medications: Reviewed: Yes Vitals/I&O/Wt Last Vital Signs Temp 97.9 F 12/31/20 15:49 Pulse 78 12/31/20 15:49 Resp 18 12/31/20 15:49 BP 137/88 12/31/20 15:49 Pulse Ox 98 12/31/20 15:49 12/31/20 12/31/20 12/31/20 06:59 14:59 22:59 Intake Total 1000 / 1300 Output Total 450 / 450 Balance 1000 / 1300 -450 / -450 Weight last 48 hrs Weight 51.256 kg Physical Exam Const: COMMON NORMALS: patient oriented x3 HENMT: COMMON NORMALS: normocephalic and atraumatic HEAD & SCALP: normocephalic and atraumatic Resp: COMMON NORMALS: clear to auscultation bilaterally EFFORT & INSPECTION: Yes symmetric chest movement AUSCULTATION: clear to auscultation bilaterally Cardio: COMMON NORMALS: S2 normal heart sound present, No gallops present (Cardio), No murmurs present (Cardio), No rub (Cardio) and Peripheral pulses 2+ throughout HEART SOUNDS: S2 normal heart sound present PERIPHERAL PULSES: Peripheral pulses 2+ throughout GI: OTHER: Hypoactive BS, Generalized abdominal tenderness. No guarding, no rigidity, no rebound tenderness. Extremity: COMMON NORMALS: no clubbing, cyanosis or edema and no pedal edema Neuro: COMMON NORMALS: patient oriented x3 Data : 12/31/20 04:43 12/31/20 04:43 A&P Assessment and plan (1) SBO (small bowel obstruction): Small bowel obstruction: On ICE Chips NG tube to LIS Pain management IV hydration Appreciate general surgery recommendation. Status: Acute (2) HTN (hypertension) with goal to be determined: Status: Acute Attestations Medical Necessity Statement*: Patient needs to be in hospital for the management of SBO Coding Level of Care Code Acute Production Finisher for p[facility] Diagnoses SBO (small bowel obstruction) K56.609 HTN (hypertension) with goal to be determined I10
[2020-12-31] MEDS: lanolin oint 7 gm 1 APPLIC TOPICAL (16:38)
[2020-12-31] MEDS: enoxaparin 40 mg/0.4 mL Syringe SUBCUT (16:39)
[2020-12-31 16:59] LABS: Glucose Point of Care 113 mg/dL (70-110)
[2020-12-31 20:47] LABS: Glucose Point of Care 112 mg/dL (70-110)
[2021-01-01] VITALS (12 sets, daily range): BP systolic 108–127; BP diastolic 65–81; PULSE 72–90; RESP 16–22; TEMP 36.8–37; O2SAT 95–98
[2021-01-01] MEDS: HYDROmorphone 1 mg/mL INJ 1 mL 0.4 MG IVP ×5 (01:06→20:10)
[2021-01-01] MEDS: ondansetron 2 mg/ML SDV 2 mL 4 MG IVP ×4 (02:31→21:45)
[2021-01-01] MEDS: sodium chloride 0.9% 1,000 ML 150 ML IV ×3 (04:05→20:08)
[2021-01-01 05:56] LABS: Basophils % 0.2 %; Eosinophils # 0.1 10^3/uL (0.0-0.8); Eosinophils % 0.7 %; Hematocrit 36.6 % (37.0-47.0); Hemoglobin 12.7 g/dL (11.5-15.3); Lymphocytes # 4.5 10^3/uL (0.8-4.8); Lymphocytes % 41.2 %; Mean Corpuscular HGB Conc 34.7 g/dL (30.0-36.0); Mean Corpuscular Hemoglobin 31.7 pg (28.0-34.0); Mean Corpuscular Volume 91.3 fL (81-99); Mean Platelet Volume 8.9 fL (7.4-10.4); Monocytes # 0.6 10^3/uL (0.2-0.9); Monocytes % 5.9 %; Neutrophils # 5.67 10^3/uL (1.8-7.7); Neutrophils % 51.8 %; Nucleated Red Blood Cells % 0 %; Platelet Count 381 10^3/cmm (130-400); Red Blood Count 4.01 10^6/uL (4.1-5.3); Red Cell Distribution Width 12.4 % (12.1-15.1); White Blood Count 10.9 10^3/uL (4.0-10.0)
[2021-01-01 06:12] LABS: Alanine Aminotransferase 20 U/L (0-33); Albumin Level 3.7 g/dL (3.5-5.2); Alkaline Phosphatase 57 IU/L (35-105); Anion Gap 16.4 (5-19); Aspartate Amino Transferase 16 U/L (0-32); Blood Urea Nitrogen 5 mg/dL (8-23); Calcium 7.9 mg/dL (8.5-10.5); Carbon Dioxide 20 mmol/L (22-29); Chloride 108 mmol/L (98-107); Globulin 2.3 g/dL (1.3-4.6); Glomerular Filtration Rate 162.3 mL/min (90-130); Glucose 99 mg/dL (65-115); Osmolality Calculated 289 mOsm/kg (285-295); Potassium 3.4 mmol/L (3.5-5.1); Sodium 141 mmol/L (136-145); Total Bilirubin 0.3 mg/dL (0.15-1.2)
[2021-01-01 06:25] LABS: Glucose Point of Care 112 mg/dL (70-110)
--- NOTE | 2021-01-01 08:00 | XRR_ITS ---
PROCEDURE INFORMATION: Exam: XR Abdomen Exam date and time: 01/01/2021 8:00 AM Age: 60 years old Clinical indication: Condition or disease; Intestinal condition; Obstruction; Additional info: Sbo TECHNIQUE: Imaging protocol: XR of the abdomen. Views: Frontal supine view of the abdomen. 1 View. COMPARISON: CR (ABDOMEN, ) 12/31/2020 4:41 PM FINDINGS: Tubes, catheters and devices: Feeding tube is in satisfactory position. Surgical clips project over the spine. Surgical sutures project over the right sacral region. Gastrointestinal tract: Nonobstructive bowel gas pattern. Organs: Cholecystectomy clips project over the right upper quadrant. Bones/joints: Unremarkable. XR/XR abdomen 1V* [id number] IMPRESSION: Nonobstructive bowel gas pattern.
--- NOTE | 2021-01-01 11:21 | PM.PN ---
Subjective Subjective: Interval history: Patient was seen and examined this morning, continues to complain of nausea vomiting abdominal pain, has not passed any stool or flatus. A.m. XR acute abdomen series : Shows nonobstructive bowel gas pattern.XR abdomen:Nonobstructive bowel gas pattern. Medications: Reviewed: Yes Vitals/I&O/Wt Last Vital Signs Temp 98.6 F 01/01/21 08:00 Pulse 77 01/01/21 08:00 Resp 22 H 01/01/21 10:55 BP 123/81 01/01/21 08:00 Pulse Ox 97 01/01/21 08:00 12/31/20 01/01/21 01/01/21 22:59 06:59 14:59 Intake Total 1837.5 / 1837.5 1000 / 2837.5 Output Total 400 / 850 500 / 1350 Balance 1437.5 / 987.5 500 / 1487.5 Physical Exam Const: COMMON NORMALS: patient oriented x3 HENMT: COMMON NORMALS: normocephalic and atraumatic HEAD & SCALP: normocephalic and atraumatic Resp: COMMON NORMALS: clear to auscultation bilaterally EFFORT & INSPECTION: Yes symmetric chest movement AUSCULTATION: clear to auscultation bilaterally Cardio: COMMON NORMALS: S2 normal heart sound present, No gallops present (Cardio), No murmurs present (Cardio), No rub (Cardio) and Peripheral pulses 2+ throughout HEART SOUNDS: S2 normal heart sound present PERIPHERAL PULSES: Peripheral pulses 2+ throughout GI: OTHER: Hypoactive BS, Generalized abdominal tenderness. No guarding, no rigidity, no rebound tenderness. Extremity: COMMON NORMALS: no clubbing, cyanosis or edema and no pedal edema Neuro: COMMON NORMALS: patient oriented x3 Data : 01/01/21 05:26 01/01/21 05:26 A&P Assessment and plan (1) SBO (small bowel obstruction): Small bowel obstruction: /Ileus On ICE Chips NG tube to LIS Pain management IV hydration Appreciate general surgery recommendation. If patient fails to improve in next 48 hours she will be a candidate for exploratory laparotomy. Status: Acute (2) HTN (hypertension) with goal to be determined: Status: Acute Attestations Medical Necessity Statement*: Patient needs to be in hospital for management of small bowel obstruction. 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
[2021-01-01 12:30] LABS: Glucose Point of Care 102 mg/dL (70-110)
--- NOTE | 2021-01-01 12:59 | PM.PN ---
Subjective Subjective: Interval history: Patient has had no real changes overnight. She has been ambulating in the halls for 30 minutes with the tube clamped. I found her vomiting in bed today with NG tube. Acute abdominal series and upright abdominal x-ray today both showed nonobstructive bowel gas pattern, however patient says that she is not passing flatus or having bowel movements. Medications: Reviewed: Yes Vitals/I&O/Wt Last Vital Signs Temp 98.6 F 01/01/21 08:00 Pulse 77 01/01/21 08:00 Resp 22 H 01/01/21 10:55 BP 123/81 01/01/21 08:00 Pulse Ox 97 01/01/21 08:00 12/31/20 01/01/21 01/01/21 22:59 06:59 14:59 Intake Total 1837.5 / 1837.5 1000 / 2837.5 Output Total 400 / 850 500 / 1350 Balance 1437.5 / 987.5 500 / 1487.5 Physical Exam Const: COMMON NORMALS: no acute distress, patient oriented x3 and well nourished HENMT: COMMON NORMALS: normocephalic and atraumatic HEAD & SCALP: normocephalic and atraumatic Chest: COMMONS NORMALS: normal inspection of the chest and normal palpation of entire chest wall Resp: COMMON NORMALS: normal respiratory effort, No retractions and No use of accessory muscles Cardio: COMMON NORMALS: regular rate and regular rhythm RATE: regular rate RHYTHM: regular rhythm GI: OTHER: Abdomen is soft, moderately distended, mild diffuse tenderness to palpation. There is a large midline scar Neuro: COMMON NORMALS: patient oriented x3 Data : 01/01/21 05:26 01/01/21 05:26 A&P Assessment and plan (1) SBO (small bowel obstruction): Change IV fluids to normal NG tube to low intermittent suction Patient may have ice cubes while on suction Ambulate for 30 minutes with tube clamped times a day Aggressive of electrolyte management We will continue to follow the patient. Status: Acute (2) Ileitis: This may be more of her problem, given that she has a nonobstructive pattern on x-ray. However if she does not start passing flatus in the next day or 2 we will have to consider further options such as exploratory laparotomy. Status: Acute Attestations Medical Necessity Statement*: Patient requires further hospitalization due to condition Coding Level of Care Code Acute Practicing Urologist for [facility] Diagnoses SBO (small bowel obstruction) K56.609 Ileitis K52.9
[2021-01-01] MEDS: potassium chloride premix 20 MEQ/100 ML 50 MEQ IV (13:30)
[2021-01-01 17:18] LABS: Glucose Point of Care 83 mg/dL (70-110)
[2021-01-01] MEDS: enoxaparin 40 mg/0.4 mL Syringe SUBCUT (18:52)
[2021-01-01 20:27] LABS: Glucose Point of Care 103 mg/dL (70-110)
[2021-01-02] VITALS (11 sets, daily range): BP systolic 112–153; BP diastolic 74–90; PULSE 64–92; RESP 14–22; TEMP 36.7–37.1; O2SAT 97–98
[2021-01-02] MEDS: HYDROmorphone 1 mg/mL INJ 1 mL 0.4 MG IVP ×6 (00:47→22:54)
[2021-01-02] MEDS: sodium chloride 0.9% 1,000 ML 75 ML IV (02:51)
[2021-01-02 06:14] LABS: Basophils % 0.1 %; Eosinophils # 0.1 10^3/uL (0.0-0.8); Eosinophils % 0.8 %; Hematocrit 33.2 % (37.0-47.0); Hemoglobin 11.4 g/dL (11.5-15.3); Lymphocytes # 3.4 10^3/uL (0.8-4.8); Lymphocytes % 38.5 %; Mean Corpuscular HGB Conc 34.3 g/dL (30.0-36.0); Mean Corpuscular Hemoglobin 31.8 pg (28.0-34.0); Mean Corpuscular Volume 92.5 fL (81-99); Mean Platelet Volume 8.5 fL (7.4-10.4); Monocytes # 0.6 10^3/uL (0.2-0.9); Monocytes % 7.2 %; Neutrophils # 4.62 10^3/uL (1.8-7.7); Neutrophils % 53.2 %; Nucleated Red Blood Cells % 0 %; Platelet Count 398 10^3/cmm (130-400); Red Blood Count 3.59 10^6/uL (4.1-5.3); White Blood Count 8.7 10^3/uL (4.0-10.0)
[2021-01-02 06:28] LABS: Glucose Point of Care 97 mg/dL (70-110)
[2021-01-02 07:30] LABS: Alanine Aminotransferase 22 U/L (0-33); Albumin Level 3.5 g/dL (3.5-5.2); Alkaline Phosphatase 57 IU/L (35-105); Anion Gap 17.3 (5-19); Aspartate Amino Transferase 19 U/L (0-32); Blood Urea Nitrogen 3 mg/dL (8-23); Calcium 8.3 mg/dL (8.5-10.5); Carbon Dioxide 20 mmol/L (22-29); Chloride 105 mmol/L (98-107); Globulin 2.4 g/dL (1.3-4.6); Glomerular Filtration Rate 162.3 mL/min (90-130); Glucose 90 mg/dL (65-115); Osmolality Calculated 284 mOsm/kg (285-295); Potassium 3.3 mmol/L (3.5-5.1); Sodium 139 mmol/L (136-145); Total Bilirubin 0.5 mg/dL (0.15-1.2); Total Protein 5.9 g/dL (6.6-8.7)
--- NOTE | 2021-01-02 07:30 | XRR_ITS ---
PROCEDURE INFORMATION: Exam: XR Abdomen Exam date and time: 01/02/2021 7:30 AM Age: 60 years old Clinical indication: Condition or disease; Intestinal condition; Obstruction; Additional info: Sbo TECHNIQUE: Imaging protocol: XR of the abdomen. Views: 2 Views. Upright and supine views. COMPARISON: CR (ABDOMEN, ) 01/01/2021 8:07 AM FINDINGS: Tubes, catheters and devices: NG tube is noted in the duodenum. Surgical sutures noted in the right pelvic region. Gastrointestinal tract: Known bowel obstruction is not well visualized on radiograph. Intraperitoneal space: No free air. Bones/joints: Prior vertebroplasty noted in the lower thoracic spine. XR/XR abdomen min 2V [id number] IMPRESSION: Known bowel obstruction is not well visualized on radiograph.
[2021-01-02] MEDS: ondansetron 2 mg/ML SDV 2 mL 4 MG IVP ×2 (07:59→18:30)
[2021-01-02] MEDS: dextrose 5%-ns + KCl 20 20 MEQ/1,000 ML BAG 50 MEQ IV (11:07)
[2021-01-02 11:42] LABS: Glucose Point of Care 112 mg/dL (70-110)
--- NOTE | 2021-01-02 16:20 | P.PN_ITS ---
Subjective Subjective: Interval history: Overnight 200 cc of bilious drainage noted She was walking down the lund with NG clamped when I saw her As soon as she came back in the room she started experiencing nausea and dry heaves She endorsed passing flatus No worsening of abdominal pain No overnight events Zofran helps to relieve her nausea She told me about her 21 colon surgeries After hysterectomy Vitals/I&O/Wt Last Vital Signs Temp 98.7 F 01/02/21 12:00 Pulse 64 01/02/21 12:00 Resp 18 01/02/21 13:44 BP 112/74 01/02/21 12:00 Pulse Ox 97 01/02/21 12:00 01/02/21 01/02/21 01/02/21 06:59 14:59 22:59 Intake Total 1238.75 / 3338.75 661.25 / 661.25 Output Total 553 / 553 Balance 685.75 / 2785.75 661.25 / 661.25 Physical Exam Narrative: EXAM NARRATIVE: Patient was walking down the hallway when I saw her Very pleasant and cooperative during my evaluation S1, S2 sinus rhythm Abdomen without active signs of peritonitis Bowel sounds present Patient is awake alert oriented x3 GCS 15 EOMI, PERRLA No joint swelling Bilateral breath sounds without adventitious rhonchi or crackles Dry mucous membranes Data : 01/02/21 05:58 01/02/21 05:58 A&P Assessment and plan (1) SBO (small bowel obstruction): Status: Acute (2) Ileitis: Status: Acute Additional A&P Information Small bowel obstruction with underlying ileitis 200 cc bilious drainage overnight NG was clamped when she was walking down the hallway Experienced dry heaves and nausea during my evaluation Patient is able to pass some flatus She has been having ice chips frequently Appreciate general surgery recommendations, she has stayed afebrile, leukocytosis improved Off antibiotics, Patient is type II diabetic, we will keep her on D5 half-normal saline for now Full code N.p.o. 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
--- NOTE | 2021-01-02 17:02 | PC.RESP ---
Smoking Cessation information sent to patient.
[2021-01-02 17:12] LABS: Glucose Point of Care 101 mg/dL (70-110)
--- NOTE | 2021-01-02 17:14 | P.PN_ITS ---
Subjective Subjective: Interval history: Patient continues to have abdominal pain, feels nauseated in spite of the NG tube, find he started passing flatus last night Vitals/I&O/Wt Last Vital Signs Temp 98.2 F 01/02/21 16:00 Pulse 85 01/02/21 16:00 Resp 17 01/02/21 16:00 BP 153/88 01/02/21 16:00 Pulse Ox 98 01/02/21 16:00 01/02/21 01/02/21 01/02/21 06:59 14:59 22:59 Intake Total 1238.75 / 3338.75 661.25 / 661.25 Output Total 553 / 553 Balance 685.75 / 2785.75 661.25 / 661.25 Physical Exam Narrative: EXAM NARRATIVE: Abdomen: Soft, nondistended, minimally tender, well-healed laparotomy scar Data : 01/02/21 05:58 01/02/21 05:58 A&P Assessment and plan (1) SBO (small bowel obstruction): 60-year-old female with multiple laparotomies in the past who presents with small bowel obstruction. 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
[2021-01-02] MEDS: enoxaparin 40 mg/0.4 mL Syringe SUBCUT (18:25)
[2021-01-02] MEDS: lidocaine 1% 5 ML in potassium chloride premix 100 ML 25 ML IV (18:25)
[2021-01-02] MEDS: dextrose 5%-ns 0.2% + KCL 20 20 MEQ/1,000 ML BAG 50 MEQ IV (21:18)
[2021-01-02 21:43] LABS: Glucose Point of Care 94 mg/dL (70-110)
[2021-01-03] VITALS (9 sets, daily range): BP systolic 117–130; BP diastolic 75–86; PULSE 74–99; RESP 15–20; TEMP 36.4–38.1; O2SAT 94–98
[2021-01-03] MEDS: ondansetron 2 mg/ML SDV 2 mL 4 MG IVP ×2 (04:15→10:47)
[2021-01-03] MEDS: HYDROmorphone 1 mg/mL INJ 1 mL 0.4 MG IVP ×3 (04:18→18:37)
[2021-01-03 05:08] LABS: Basophils % 0.2 %; Eosinophils # 0.1 10^3/uL (0.0-0.8); Eosinophils % 0.8 %; Hematocrit 39.9 % (37.0-47.0); Hemoglobin 14.1 g/dL (11.5-15.3); Lymphocytes # 3.2 10^3/uL (0.8-4.8); Lymphocytes % 26.7 %; Mean Corpuscular HGB Conc 35.3 g/dL (30.0-36.0); Mean Corpuscular Hemoglobin 31.8 pg (28.0-34.0); Mean Corpuscular Volume 89.9 fL (81-99); Mean Platelet Volume 8.2 fL (7.4-10.4); Monocytes % 8.4 %; Neutrophils # 7.54 10^3/uL (1.8-7.7); Neutrophils % 63.6 %; Nucleated Red Blood Cells % 0 %; Platelet Count 430 10^3/cmm (130-400); Red Blood Count 4.44 10^6/uL (4.1-5.3); Red Cell Distribution Width 11.8 % (12.1-15.1); White Blood Count 11.9 10^3/uL (4.0-10.0)
--- NOTE | 2021-01-03 05:28 | PC.NURSE ---
Shift Note Frequent safety and comfort rounds continue. Orders and nursing care completed as indicated. Patient monitored for response to intervention and treatment for enteritis, . Education provided includesNG tubes, NPO status, pain management.. Patient verbalized understanding . patient averages every 4 hours for pain medication. no vomiting, 700 ml output from NG tube, yellow brown in color with solid substance floating resembling corn. Will continue to monitor.
[2021-01-03 05:31] LABS: Anion Gap 19.7 (5-19); Blood Urea Nitrogen 3 mg/dL (8-23); Calcium 8.9 mg/dL (8.5-10.5); Carbon Dioxide 23 mmol/L (22-29); Chloride 99 mmol/L (98-107); Glomerular Filtration Rate 162.3 mL/min (90-130); Glucose 101 mg/dL (65-115); Osmolality Calculated 283 mOsm/kg (285-295); Potassium 3.7 mmol/L (3.5-5.1); Sodium 138 mmol/L (136-145)
--- NOTE | 2021-01-03 06:00 | XRR_ITS ---
PROCEDURE INFORMATION: Exam: XR Abdomen Exam date and time: 01/03/2021 6:00 AM Age: 60 years old Clinical indication: Condition or disease; Intestinal condition; Obstruction; Prior surgery; Surgery type: Colon; Additional info: Sbo TECHNIQUE: Imaging protocol: XR of the abdomen. Views: 2 Views. Upright and supine views. COMPARISON: CR XR abdomen min 2V [id number] 01/02/2021 8:12 AM FINDINGS: Tubes, catheters and devices: A nasogastric feeding tube is present in stable position with the tip projecting on the duodenum. Surgical clips are present in the abdomen and pelvis. Gastrointestinal tract: Normal. No bowel dilation. Intraperitoneal space: Normal. No free air. Bones/joints: Patient has undergone T12 vertebroplasty. XR/XR abdomen min 2V [id number] IMPRESSION: 1. No significant bowel dilatation is seen. 2. Stable satisfactory position of the nasogastric tube.
[2021-01-03 06:34] LABS: Glucose Point of Care 122 mg/dL (70-110)
[2021-01-03] MEDS: magnesium citrate Btl 296 mL PO (08:53)
[2021-01-03 11:45] LABS: Glucose Point of Care 167 mg/dL (70-110)
--- NOTE | 2021-01-03 13:47 | PM.PN ---
Subjective Subjective: Interval history: Patient was seen and examined today, patient was taking mag citrate, he is endorsing passing flatus and a small bowel movement, abdomen feels less distended NG clamped Vitals/I&O/Wt Last Vital Signs Temp 97.5 F L 01/03/21 11:33 Pulse 99 01/03/21 11:33 Resp 16 01/03/21 11:33 BP 126/76 01/03/21 11:33 Pulse Ox 94 01/03/21 11:33 01/02/21 01/03/21 01/03/21 22:59 06:59 14:59 Intake Total 665 / 1326.25 240 / 240 Output Total 1300 / 1300 700 / 2000 Balance -635 / 26.25 -700 / -673.75 240 / 240 Physical Exam Narrative: EXAM NARRATIVE: Patient was sitting in chair Was drinking mag citrate NG clamped Abdomen less distended no signs of peritonitis bowel sounds present Lower extremity no edema S1, S2 sinus rhythm No acute respiratory distress saturating well on room air No joint swelling Awake and alert oriented x3 GCS 15 Data : 01/03/21 05:00 01/03/21 05:00 A&P Assessment and plan (1) SBO (small bowel obstruction): Status: Acute (2) Ileitis: Status: Acute Additional A&P Information Small bowel obstruction Not requiring any antibiotics, patient symptoms improved with conservative management NG clamped patient getting mag citrate Endorsing passage of flatus and a bowel movement this morning General surgery recommendations appreciated Keep her on IV fluids for now considering her history of type 2 diabetes Full code Advance diet once she is having bowel movement and there is no recurrence of nausea vomiting or abdominal distention Ileitis: Less likely, symptoms improved without antibiotic DVT prophylaxis Lovenox Attestations Medical Necessity Statement*: Continue medical management and advance diet if she is progressing with passage of flatus and bowel movement Time Spent in Patient Care: less than 15 minutes Coding Level of Care Code Acute Senior Packaging Engineer for Sonya Patrick Diagnoses SBO (small bowel obstruction) K56.609 Ileitis K52.9
[2021-01-03 16:47] LABS: Glucose Point of Care 115 mg/dL (70-110)
--- NOTE | 2021-01-03 17:54 | PM.PN ---
Subjective Subjective: Interval history: patient has been doing well, abdominal pain is better, passing flatus Vitals/I&O/Wt Last Vital Signs Temp 97.6 F 01/03/21 15:30 Pulse 92 01/03/21 15:30 Resp 16 01/03/21 15:30 BP 130/86 01/03/21 15:30 Pulse Ox 96 01/03/21 15:30 01/03/21 01/03/21 01/03/21 06:59 14:59 22:59 Intake Total 240 / 240 Output Total 700 / 2000 Balance -700 / -673.75 240 / 240 Physical Exam Narrative: EXAM NARRATIVE: Abdomen: Soft, nontender, nondistended, NG tube to LIS Data : 01/03/21 05:00 01/03/21 05:00 A&P Assessment and plan (1) SBO (small bowel obstruction): 60-year-old female with multiple laparotomies in the past who presents with small bowel obstruction. Patient is hemodynamically stable without any evidence of peritonitis She is finally passing flatus Abdominal x-ray shows no evidence of bowel obstruction Clamp NG tube, start clear liquid diet, if tolerating DC NG tube this evening 1 bottle of mag citrate and enema today If she continues to progress she can be advanced to full liquid diet tomorrow Status: Acute Attestations Medical Necessity Statement*: As per primary Coding Level of Care Code Acute Security Messenger for [facility]ell Diagnoses SBO (small bowel obstruction) K56.609
[2021-01-03] MEDS: enoxaparin 40 mg/0.4 mL Syringe SUBCUT (18:28)
[2021-01-03 20:27] LABS: Glucose Point of Care 130 mg/dL (70-110)
[2021-01-04] VITALS: BP 118/83; PULSE 89; RESP 17; TEMP 36.9; O2SAT 97
[2021-01-04] MEDS: ondansetron 2 mg/ML SDV 2 mL 4 MG IVP (00:08)
[2021-01-04] MEDS: HYDROmorphone 1 mg/mL INJ 1 mL 0.4 MG IVP ×2 (00:08→04:23)
[2021-01-04 04:00] VITALS: BP 129/84; PULSE 84; RESP 18; TEMP 36.3; O2SAT 98
[2021-01-04 04:14] LABS: Basophils % 0.3 %; Eosinophils # 0.2 10^3/uL (0.0-0.8); Eosinophils % 1.6 %; Hematocrit 40.1 % (37.0-47.0); Hemoglobin 14.1 g/dL (11.5-15.3); Lymphocytes # 3.9 10^3/uL (0.8-4.8); Lymphocytes % 36.5 %; Mean Corpuscular HGB Conc 35.2 g/dL (30.0-36.0); Mean Corpuscular Hemoglobin 31.5 pg (28.0-34.0); Mean Corpuscular Volume 89.7 fL (81-99); Mean Platelet Volume 8.3 fL (7.4-10.4); Monocytes # 0.8 10^3/uL (0.2-0.9); Monocytes % 7.9 %; Neutrophils # 5.72 10^3/uL (1.8-7.7); Neutrophils % 53.5 %; Nucleated Red Blood Cells % 0 %; Platelet Count 471 10^3/cmm (130-400); Red Blood Count 4.47 10^6/uL (4.1-5.3); Red Cell Distribution Width 11.9 % (12.1-15.1); White Blood Count 10.7 10^3/uL (4.0-10.0)
[2021-01-04 04:23] VITALS: RESP 16; O2SAT 96
[2021-01-04 04:39] LABS: Anion Gap 16.7 (5-19); Blood Urea Nitrogen 2 mg/dL (8-23); Calcium 9.1 mg/dL (8.5-10.5); Carbon Dioxide 25 mmol/L (22-29); Chloride 103 mmol/L (98-107); Glomerular Filtration Rate 226.2 mL/min (90-130); Glucose 119 mg/dL (65-115); Osmolality Calculated 289 mOsm/kg (285-295); Potassium 3.7 mmol/L (3.5-5.1); Sodium 141 mmol/L (136-145)
[2021-01-04 06:31] LABS: Glucose Point of Care 140 mg/dL (70-110)
[2021-01-04 08:19] VITALS: BP 126/85; PULSE 72; RESP 16; TEMP 36.8; O2SAT 96
[2021-01-04] MEDS: magnesium citrate Btl 296 mL PO (10:55)
[2021-01-04 12:00] VITALS: BP 137/93; PULSE 86; RESP 20; TEMP 36.8; O2SAT 100
[2021-01-04 12:27] LABS: Glucose Point of Care 134 mg/dL (70-110)
[2021-01-04 14:35] VITALS: BP 137/93; PULSE 86; RESP 20; TEMP 36.8; O2SAT 100
--- NOTE | 2021-01-04 16:56 | PM.DCS ---
Discharge Providers Date of Admission: 12/30/20 19:57 Date of Discharge: January 04, 2021 Attending Provider at Admission: Cisco Raman MD Attending Provider at Discharge: Agus Arciniega MD Diagnoses at Discharge Discharge Diagnosis (1) SBO (small bowel obstruction): Status: Acute Reason for Visit Reason for Visit: ABD PAIN, STATES FEELS LIKE PREV BLOCKAGE Hospital Course Hospital Course HPI Dr. Raman Yessi Schulte is a 60 year old female with past medical history of hypertension, multiple abdominal surgeries, came in with chief complaint of worsening nausea , vomiting, and generalized abdominal, started 3 days ago, it was worst today to the point that she was not able to keep anything down. Upon arrival in the ER: Worked up for above-mentioned complaint: Imaging studies: CT abdomen pelvis w con: Abnormal small bowel. Jejunal loops are markedly dilated with hypervascularity. The distal small bowel loops are fluid-filled without hyperemia. Diffuse enteritis and ischemic disease should be considered. NG tube was placed in the ER. General surgery was consulted. Hospital course Patient was admitted for management of SBO she has multiple history of laparotomies, did well with conservative management of NG to suction, she started passing flatus, her NG was clamped, she did not show any worsening of her symptoms, general surgery started her on mag citrate, she started having bowel movement, abdominal bloating improved, she was feeling hungry, NG was removed and her diet was advanced. She was able to tolerate regular diet. She was discharged home in stable condition. Her repeat abdominal x-rays did not show evidence of acute obstruction. Ileitis was being considered however she did not receive any antibiotics. She did not spike any fever no worsening of leukocytosis CT/CT abdomen pelvis w con* [id number] IMPRESSION: 1. Abnormal small bowel. Jejunal loops are markedly dilated with hypervascularity. The distal small bowel loops are fluid-filled without hyperemia. Diffuse enteritis and ischemic disease should be considered. Surgical resection sites in the mid and distal small bowel which have been previously seen. 2. No colon obstruction. 3. Prior cholecystectomy. Physical Exam Narrative: EXAM NARRATIVE: Patient was sitting in chair Was drinking mag citrate NG clamped Abdomen less distended no signs of peritonitis bowel sounds present Lower extremity no edema S1, S2 sinus rhythm No acute respiratory distress saturating well on room air No joint swelling Awake and alert oriented x3 GCS 15 Discharge Data Data Completed and Pending: Completed Studies During Hospitalization Category Date Time Status CT abdomen pelvis w con* [id number] Urge nt Cat Scan 12/30/20 13:44 Completed XR abdomen 1V* [id number] Routine Exams 01/01/21 08:00 Completed XR abdomen min 2V [id number] Routine Exams 01/02/21 07:30 Completed XR abdomen min 2V [id number] Routine Exams 01/03/21 06:00 Completed XR acute abdomen series [id number] Routi ne Exams 12/31/20 14:58 Completed Labs from last 24 hours 01/04/21 01/04/21 01/04/21 12:19 06:16 04:05 WBC RBC Hgb Hct MCV MCH MCHC RDW Plt Count MPV Neut % (Auto) Lymph % (Auto) [place] % (Auto) Eos % (Auto) Baso % (Auto) Neut # (Auto) Lymph # (Auto) [place] # (Auto) Eos # (Auto) Baso # (Auto) Nucleated RBC % (a uto) Nucleated RBCs # Sodium 141 Potassium 3.7 Chloride 103 Carbon Dioxide 25 Anion Gap 16.7 BUN 2 L Creatinine 0.3 L GFR Calculation 226.2 H Glucose 119 H POC Glucose 134 H 140 H Calculated Osmolal ity 289 Calcium 9.1 01/04/21 01/03/21 04:05 20:14 WBC 10.7 H RBC 4.47 Hgb 14.1 Hct 40.1 MCV 89.7 MCH 31.5 MCHC 35.2 RDW 11.9 L Plt Count 471 H MPV 8.3 Neut % (Auto) 53.5 Lymph % (Auto) 36.5 [place] % (Auto) 7.9 Eos % (Auto) 1.6 Baso % (Auto) 0.3 Neut # (Auto) 5.72 Lymph # (Auto) 3.9 [place] # (Auto) 0.8 Eos # (Auto) 0.2 Baso # (Auto) 0.0 Nucleated RBC % (a uto) 0 Nucleated RBCs # 0.0 Sodium Potassium Chloride Carbon Dioxide Anion Gap BUN Creatinine GFR Calculation Glucose POC Glucose 130 H Calculated Osmolal ity Calcium Vitals: Last Vital Signs Temp 98.2 F 01/04/21 14:35 Pulse 86 01/04/21 14:35 Resp 20 H 01/04/21 14:35 BP 137/93 01/04/21 14:35 Pulse Ox 100 01/04/21 14:35 Discharge Plan Discharge Patient Disposition: Home Condition: Stable Prescriptions: New magnesium citrate 100 mg tablet 100 mg PO DAILY Qty: 3 RF: 0 Continued (DME) crutch Misc See Rx Instructions .ROUTE .MEDSUPPLY Qty: 2 RF: 0 (DME) cam boot See Rx Instructions .Route .MEDSUPPLY Qty: 1 RF: 0 (DME) bone stimulator See Rx Instructions .Route .MEDSUPPLY Qty: 1 RF: 0 (DME) ASO on the right See Rx Instructions .Route .MEDSUPPLY Qty: 1 RF: 0 (DME) Sole Supports See Rx Instructions .Route .MEDSUPPLY Qty: 1 RF: 0 venlafaxine 75 mg capsule,extended release 24hr 75 mg PO BEDTIME RF: 0 isosorbide mononitrate 30 mg tablet extended release 24 hr 30 mg PO BEDTIME RF: 0 gabapentin 300 mg capsule 300 mg PO TID RF: 0 metoprolol succinate 25 mg tablet extended release 24 hr 12.5 mg PO BID RF: 0 metformin 500 mg tablet extended release 24hr 500 mg PO QPM RF: 0 albuterol sulfate 2.5 mg /3 mL (0.083 %) Solution For Nebulization 2.5 mg inhalation PRN RF: 0 aspirin 81 mg Tablet,Delayed Release (Dr/Ec) 81 mg PO BEDTIME RF: 0 diphenhydramine HCl [Benadryl] 25 mg Capsule 25 mg PO PRN RF: 0 nitroglycerin [Nitrostat] 0.4 mg Tablet, Sublingual 0.4 mg SUBLINGUAL Q5M PRN (Reason: Chest Pain) RF: 0 Discharge Orders: Discharge Order (Routine); Ordered 01/04/21 Ordered By: Agus Arciniega Referrals: Frank Smith DO [Physician] - 01/12/21 9:00 am Discharge Diet: Regular Discharge Activity: Resume usual activity Patient Instructions: Bowel Obstruction, Magnesium Citrate (By mouth), Ileus (GEN), Opioid Safety Discharge Attestations Time Spent in Discharge Care*: less than 30 min Quality Metrics Clinical Quality Measures During this hospital stay, did patient experience: None Coding Level of Care Code Acute Chg FW DC note Diagnoses SBO (small bowel obstruction) K56.609
--- NOTE | 2021-01-09 11:39 | PC.SOCIAL ---
follow up appointment call made. patient has follow up appointment with Dr. Smith on 01-12. Patient picked up medication from pharmacy. Patient has no concerns with discharge
== END 2021-01-04 14:20 | disposition home or self-care (01) | DRG 390 ==
LOC: ER 13:30 → MEDSURG 12-31 10:42
PROVIDERS: Surgery; Admitting Provider Internal Medicine; Emergency Provider Emergency Medicine; Visit Provider Internal Medicine
DX: K56.609 Unspecified intestinal obstruction, unspecified as to partial versus complete obstruction (principal); K52.9 Noninfective gastroenteritis and colitis, unspecified; I10 Essential (primary) hypertension; E11.9 Type 2 diabetes mellitus without complications; F17.200 Nicotine dependence, unspecified, uncomplicated; Z86.59 Personal history of other mental and behavioral disorders; Z90.49 Acquired absence of other specified parts of digestive tract; Z88.0 Allergy status to penicillin; Z90.710 Acquired absence of both cervix and uterus; Z79.82 Long term (current) use of aspirin; Z98.890 Other specified postprocedural states; Z79.4 Long term (current) use of insulin
CPT/HCPCS: 36415; 36416; 74018; 74019; 74022; 74177; 80048; 80053; 81003; 82962; 83605; 83690; 85025; 96365; 96366; 96367; 96372; 96375; 96376; 99285; J0744; J1170; J1200; J1650; J1815; J2270; J2405; J2930; J3010; J3480; J7030; J7040; Q9967; S0030

== ENCOUNTER → 2021-01-12 10:16 | Outpatient (BNVA) | payer BC, SELFPAY | PROVIDERS: PCP Family Medicine; Visit Provider Family Medicine | DX: D72.9 Disorder of white blood cells, unspecified (principal); E11.8 Type 2 diabetes mellitus with unspecified complications; I10 Essential (primary) hypertension; K56.609 Unspecified intestinal obstruction, unspecified as to partial versus complete obstruction; Z13.220 Encounter for screening for lipoid disorders; Z13.6 Encounter for screening for cardiovascular disorders; Z76.89 Persons encountering health services in other specified circumstances; G63 Polyneuropathy in diseases classified elsewhere | CPT/HCPCS: 80061; 83036; 84443; 85025 ==

== ENCOUNTER → 2021-01-24 13:41 | Outpatient (BNVA) | payer BC, SELFPAY | PROVIDERS: PCP Family Medicine; Visit Provider Family Medicine | DX: R52 Pain, unspecified (principal); R53.83 Other fatigue; Z20.822 Contact with and (suspected) exposure to COVID-19 | CPT/HCPCS: 87635 ==

== ENCOUNTER → 2021-02-06 15:36 | Outpatient (BNVA) | payer BC, SELFPAY | PROVIDERS: PCP Family Medicine; Visit Provider Family Medicine | DX: D72.9 Disorder of white blood cells, unspecified (principal) | CPT/HCPCS: 85025 ==

== ENCOUNTER → 2021-02-28 15:35 | Outpatient (BNVA) | payer BC, SELFPAY | PROVIDERS: PCP Family Medicine; Visit Provider Family Medicine | DX: R53.83 Other fatigue (principal); R52 Pain, unspecified; R05.9 Cough, unspecified; R06.02 Shortness of breath | CPT/HCPCS: 87400; 87426; 87635 ==

== ENCOUNTER → 2021-06-05 11:18 | Outpatient (BNVA) | payer BC, SELFPAY | PROVIDERS: PCP Family Medicine; Visit Provider Family Medicine | DX: R07.9 Chest pain, unspecified (principal) | CPT/HCPCS: 71045 ==

== ENCOUNTER 2021-06-05 14:09 | Outpatient (CLI) | payer BC, SELFPAY ==
--- NOTE | 2021-06-05 14:46 | ECG_ITS ---
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 Measurements Intervals [place] Rate: 79 P: 74 LA: 159 QRS: 78 QRSD: 85 T: 62 QT: 377 QTc: 432 Interpretive Statements SINUS RHYTHM Compared to ECG 10/26/2020 19:05:38 No significant changes Electronically Signed On 06-06-2021 5:15:53 MEDIA MONITOR by Kiersten Rehman M.D. [email or web address]
[2021-06-05 15:07] LABS: Troponin 5 2HR 6.15 ng/L (0-10)
== END 2021-06-05 14:10 | disposition home or self-care (01) ==
PROVIDERS: PCP Family Medicine; Visit Provider Family Medicine
DX: R07.9 Chest pain, unspecified (principal)
CPT/HCPCS: 80053; 84484; 85025; 93005

== ENCOUNTER 2021-06-21 09:17 | Inpatient (IN) | payer BC, SELFPAY ==
[2021-06-21] VITALS (22 sets, daily range): BP systolic 104–130; BP diastolic 71–88; PULSE 96–118; RESP 13–28; TEMP 36.6; O2SAT 90–99; BMI 21.5
--- NOTE | 2021-06-21 09:49 | XR_ITS ---
NOTE: Report was unsigned for reason: Order was edited. Original Signature date and time was: 06/21/21 @1009 WS: [id number] Abdomen series: PA CHEST AND 2 VIEWS OF THE ABDOMEN HISTORY: Nausea and vomiting and abdominal pain. COMPARISON: 01/03/2021 Lungs are clear and well aerated. Heart size is normal. No free air beneath the diaphragm. Mild atherosclerosis aorta. Numerous surgical sutures are noted at the GE junction and RIGHT upper quadrant. No free air. Air-fluid levels throughout the small bowel. Small bowel loops are dilated and fluid-filled. There is also fluid distention of the colon. There are surgical sutures noted in the RIGHT lower quadrant. Prior kyphoplasty at T12. [facility] XR/XR acute abdomen series [id number] IMPRESSION: 1. Fluid distended small bowel and colon with air-fluid levels. Early small [place] wel obstruction versus diffuse ileus. 2. No free air. 3. Prior cholecystectomy.
--- NOTE | 2021-06-21 09:49 | W.ED.ABDPA2 ---
Documented by User: Uriel Bae DO 06/21/21 17:39 HPI - Abdominal Pain General: Chief Complaint: Abdominal Pain Stated Complaint: abd pain Time Seen by Provider: 06/21/21 09:22 Source: patient History of Present Illness: 61 year old female presents to ER with abdominal pain. Reports abdominal pain, nausea, vomiting, and diarrhea since last night. Reports she can't keep anything down. Reports RLQ pain which becomes more generalized. Reports history of multiple previous bowel obstructions. Past surgical history of appendectomy, cholecystectomy, hysterectomy, and multiple surgeries for bowel resections due to bowel obstruction. No blood in stool, dysuria, fever, or chills. MD elicited complaint: abdominal pain Pertinent past history: other (bowel obstruction) Onset (ago): hour(s) Pain Consistency: constant Location: Diffuse and RLQ Associated Symptoms: Reports belching, bloating, diarrhea, nausea and vomiting; Denies chills, dysuria and fever(s) Review of Systems Const: Denies: fever(s) or chills ENMT: Denies: throat pain or nasal congestion Card: Denies: chest pain, edema or dyspnea on exertion Resp: Denies: dyspnea or productive cough GI: Reports: nausea, vomiting, diarrhea, bloating and belching : Denies: dysuria Skin/Breast: Denies: rash or pruritus PFSH ED PFSH: Medical History (Updated 06/21/21 @ 18:39 by Evangelista Moses MD) Depression HTN (hypertension) with goal to be determined Myocardial infarction acute Pancreatitis SBO (small bowel obstruction) Type 2 diabetes mellitus without complication, with no history of insulin use Surgical History H/O exploratory laparotomy H/O splenectomy History of appendectomy History of incisional hernia repair S/P cardiac cath S/P cholecystectomy S/P DONNA-BSO Status post colonoscopy Social History Smoking and tobacco status: current every day smoker Alcohol intake: current Alcohol intake frequency: holidays/special occasions only Physical Exam Const: GENERAL APPEARANCE: cooperative and comfortable ORIENTATION/CONSCIOUSNESS: Yes awake, Yes oriented to person, Yes oriented to place and Yes oriented to time HENMT: COMMON NORMALS: normocephalic, atraumatic and hearing grossly normal bilaterally HEAD & SCALP: normocephalic and atraumatic Resp: COMMON NORMALS: normal respiratory effort, No retractions, No use of accessory muscles and clear to auscultation bilaterally AUSCULTATION: clear to auscultation bilaterally Cardio: COMMON NORMALS: regular rhythm and No murmurs present (Cardio) RATE: tachycardic RHYTHM: regular rhythm GI: INSPECTION: Yes scar PALPATION: No Guarding due to palpation present (GI) OTHER: Generalized tenderness to palpation. Decreased bowel sounds. Neuro: SENSORIUM/ORIENTATION: Yes oriented to person, Yes oriented to place and Yes oriented to time Course Vital Signs: Vital signs: Vital Signs Temperature 97.8 F 06/21/21 09:41 Pulse Rate 108 H 06/21/21 18:45 Respiratory Rate 28 H 06/21/21 18:45 Blood Pressure 130/74 06/21/21 18:15 Pulse Oximetry 96 06/21/21 18:45 MDM - Abdominal Pain Medical Decision Making Prolonged ER stay due to difficulty with IV access patient was opposed to allowing us to attempt IV ultrasounds eventually we were able to get anesthesia after several others had failed. We are still waiting to get a CT abdomen pelvis done. Care turned over to Dr. Moses at change of shift see his notes for final diagnosis and disposition. Lab Data : 06/21/21 10:40 06/21/21 10:40 Labs/Radiology: Radiology Impressions Abdomen X-Ray 06/21/21 09:49 IMPRESSION: 1. Fluid distended small bowel and colon with air-fluid levels. Early small bowel obstruction versus diffuse ileus. 2. No free air. 3. Prior cholecystectomy. Abdomen/Pelvis CT 06/21/21 11:22 IMPRESSION: 1. Mid to distal small bowel obstruction, with transition point likely in the lower right abdomen. This could relate to adhesions from multiple prior small bowel resections. 2. Severe fluid distension of the stomach and duodenum. Gastric tube placement should be considered. Laboratory Results WBC 17.3 10^3/uL (4.0-10.0) H 06/21/21 10:40 RBC 4.83 10^6/uL (4.1-5.3) 06/21/21 10:40 Hgb 15.2 g/dL (11.5-15.3) 06/21/21 10:40 Hct 43.7 % (37.0-47.0) 06/21/21 10:40 MCV 90.5 fl (81-99) 06/21/21 10:40 MCH 31.5 pg (28.0-34.0) 06/21/21 10:40 MCHC 34.8 g/dL (30.0-36.0) 06/21/21 10:40 RDW 12.6 % (12.1-15.1) 06/21/21 10:40 Plt Count 662 10^3/cmm (130-400) H 06/21/21 10:40 MPV 8.8 fL (7.4-10.4) 06/21/21 10:40 Neut % (Auto) 82.7 % 06/21/21 10:40 Lymph % (Auto) 12.5 % 06/21/21 10:40 [place] % (Auto) 3.9 % 06/21/21 10:40 Eos % (Auto) 0.3 % 06/21/21 10:40 Baso % (Auto) 0.2 % 06/21/21 10:40 Neut # (Auto) 14.33 10^3/uL (1.8-7.7) H 06/21/21 10:40 Lymph # (Auto) 2.2 10^3/uL (0.8-4.8) 06/21/21 10:40 [place] # (Auto) 0.7 10^3/uL (0.2-0.9) 06/21/21 10:40 Eos # (Auto) 0.1 10^3/uL (0.0-0.8) 06/21/21 10:40 Baso # (Auto) 0.0 10^3/uL (0.0-0.1) 06/21/21 10:40 Nucleated RBC % (auto) 0 % 06/21/21 10:40 Nucleated RBCs # 0.0 /100WBC 06/21/21 10:40 Sodium 138 mmol/L (136-145) 06/21/21 10:40 Potassium 3.9 mmol/L (3.5-5.1) 06/21/21 10:40 Chloride 102 mmol/L (98-107) 06/21/21 10:40 Carbon Dioxide 19 mmol/L (22-29) L 06/21/21 10:40 Anion Gap 20.9 (5-19) H 06/21/21 10:40 BUN 11 mg/dL (8-23) 06/21/21 10:40 Creatinine 0.7 mg/dL (0.5-0.9) 06/21/21 10:40 GFR Calculation 84.8 mL/min (90-130) L 06/21/21 10:40 Glucose 176 mg/dL (65-115) H 06/21/21 10:40 Calculated Osmolality 290 mOsm/kg (285-295) 06/21/21 10:40 Lactic Acid 1.5 mmol/L (0.5-2.2) 06/21/21 11:35 Calcium 10.6 mg/dL (8.5-10.5) H 06/21/21 10:40 Total Bilirubin 0.6 mg/dL (0.15-1.2) 06/21/21 10:40 AST 23 U/L (0-32) 06/21/21 10:40 ALT 32 U/L (0-33) 06/21/21 10:40 Alkaline Phosphatase 88 IU/L (35-105) 06/21/21 10:40 Total Protein 8.5 g/dL (6.6-8.7) 06/21/21 10:40 Albumin 5.1 g/dL (3.5-5.2) 06/21/21 10:40 Globulin 3.4 g/dL (1.3-4.6) 06/21/21 10:40 Lipase 15 U/L (13-60) 06/21/21 10:40 Urine Color Alessandra (Yellow) 06/21/21 18: Urine Appearance Clear (CLEAR) 06/21/21 18: Urine pH 5 (5-7) 06/21/21 18: Ur Specific [place] 1.010 (1.005-1.030) 06/21/21 18: Urine Protein Neg (Negative) 06/21/21 18: Urine Glucose (UA) Norm (Normal) 06/21/21 18: Urine Ketones Negative (Negative) 06/21/21 18: Urine Blood Neg (Negative) 06/21/21 18: Urine Nitrate Negative (Negative) 06/21/21 18: Urine Bilirubin 1+ (Negative) H 06/21/21 18:27 Urine Urobilinogen 1 mg/dL (Negative) H 06/21/21 18:27 Ur Leukocyte Esterase Negative (Negative) 06/21/21 18:27 Discharge Plan Discharge Patient Disposition: Admitted As Inpatient Clinical Impression: SBO (small bowel obstruction) Condition: Stable Coding Level of Care Code ED Records Clerk for Chg Fwd Exam Detailed Documented by User: Evangelista Moses MD 06/21/21 19:41 HPI - Abdominal Pain General: Chief Complaint: Abdominal Pain Stated Complaint: abd pain Time Seen by Provider: 06/21/21 09:22 [facility] ED PFSH: Medical History (Updated 06/21/21 @ 18:39 by Evangelista Moses MD) Depression HTN (hypertension) with goal to be determined Myocardial infarction acute Pancreatitis SBO (small bowel obstruction) Type 2 diabetes mellitus without complication, with no history of insulin use Surgical History H/O exploratory laparotomy H/O splenectomy History of appendectomy History of incisional hernia repair S/P cardiac cath S/P cholecystectomy S/P DONNA-BSO Status post colonoscopy Social History Smoking and tobacco status: current every day smoker Alcohol intake: current Alcohol intake frequency: holidays/special occasions only Course Vital Signs: Vital signs: Vital Signs Temperature 97.8 F 06/21/21 09:41 Pulse Rate 108 H 06/21/21 18:45 Respiratory Rate 28 H 06/21/21 18:45 Blood Pressure 130/74 06/21/21 18:15 Pulse Oximetry 96 06/21/21 18:45 MDM - Abdominal Pain Medical Records Patient presents here with abdominal pain was found to have a small bowel obstruction. Patient has no signs of perforation or pains improved here had a NG tube placed spoke to hospitalist will admit. Lab Data : 06/21/21 10:40 06/21/21 10:40 Labs/Radiology: Radiology Impressions Abdomen X-Ray 06/21/21 09:49 IMPRESSION: 1. Fluid distended small bowel and colon with air-fluid levels. Early small bowel obstruction versus diffuse ileus. 2. No free air. 3. Prior cholecystectomy. Abdomen/Pelvis CT 06/21/21 11:22 IMPRESSION: 1. Mid to distal small bowel obstruction, with transition point likely in the lower right abdomen. This could relate to adhesions from multiple prior small bowel resections. 2. Severe fluid distension of the stomach and duodenum. Gastric tube placement should be considered. Laboratory Results WBC 17.3 10^3/uL (4.0-10.0) H 06/21/21 10:40 RBC 4.83 10^6/uL (4.1-5.3) 06/21/21 10:40 Hgb 15.2 g/dL (11.5-15.3) 06/21/21 10:40 Hct 43.7 % (37.0-47.0) 06/21/21 10:40 MCV 90.5 fl (81-99) 06/21/21 10:40 MCH 31.5 pg (28.0-34.0) 06/21/21 10:40 MCHC 34.8 g/dL (30.0-36.0) 06/21/21 10:40 RDW 12.6 % (12.1-15.1) 06/21/21 10:40 Plt Count 662 10^3/cmm (130-400) H 06/21/21 10:40 MPV 8.8 fL (7.4-10.4) 06/21/21 10:40 Neut % (Auto) 82.7 % 06/21/21 10:40 Lymph % (Auto) 12.5 % 06/21/21 10:40 [place] % (Auto) 3.9 % 06/21/21 10:40 Eos % (Auto) 0.3 % 06/21/21 10:40 Baso % (Auto) 0.2 % 06/21/21 10:40 Neut # (Auto) 14.33 10^3/uL (1.8-7.7) H 06/21/21 10:40 Lymph # (Auto) 2.2 10^3/uL (0.8-4.8) 06/21/21 10:40 [place] # (Auto) 0.7 10^3/uL (0.2-0.9) 06/21/21 10:40 Eos # (Auto) 0.1 10^3/uL (0.0-0.8) 06/21/21 10:40 Baso # (Auto) 0.0 10^3/uL (0.0-0.1) 06/21/21 10:40 Nucleated RBC % (auto) 0 % 06/21/21 10:40 Nucleated RBCs # 0.0 /100WBC 06/21/21 10:40 Sodium 138 mmol/L (136-145) 06/21/21 10:40 Potassium 3.9 mmol/L (3.5-5.1) 06/21/21 10:40 Chloride 102 mmol/L (98-107) 06/21/21 10:40 Carbon Dioxide 19 mmol/L (22-29) L 06/21/21 10:40 Anion Gap 20.9 (5-19) H 06/21/21 10:40 BUN 11 mg/dL (8-23) 06/21/21 10:40 Creatinine 0.7 mg/dL (0.5-0.9) 06/21/21 10:40 GFR Calculation 84.8 mL/min (90-130) L 06/21/21 10:40 Glucose 176 mg/dL (65-115) H 06/21/21 10:40 Calculated Osmolality 290 mOsm/kg (285-295) 06/21/21 10:40 Lactic Acid 1.5 mmol/L (0.5-2.2) 06/21/21 11:35 Calcium 10.6 mg/dL (8.5-10.5) H 06/21/21 10:40 Total Bilirubin 0.6 mg/dL (0.15-1.2) 06/21/21 10:40 AST 23 U/L (0-32) 06/21/21 10:40 ALT 32 U/L (0-33) 06/21/21 10:40 Alkaline Phosphatase 88 IU/L (35-105) 06/21/21 10:40 Total Protein 8.5 g/dL (6.6-8.7) 06/21/21 10:40 Albumin 5.1 g/dL (3.5-5.2) 06/21/21 10:40 Globulin 3.4 g/dL (1.3-4.6) 06/21/21 10:40 Lipase 15 U/L (13-60) 06/21/21 10:40 Urine Color Alessandra (Yellow) 06/21/21 18: Urine Appearance Clear (CLEAR) 06/21/21 18: Urine pH 5 (5-7) 06/21/21 18: Ur Specific [place] 1.010 (1.005-1.030) 06/21/21 18: Urine Protein Neg (Negative) 06/21/21 18: Urine Glucose (UA) Norm (Normal) 06/21/21 18: Urine Ketones Negative (Negative) 06/21/21 18: Urine Blood Neg (Negative) 06/21/21 18: Urine Nitrate Negative (Negative) 06/21/21 18: Urine Bilirubin 1+ (Negative) H 06/21/21 18: Urine Urobilinogen 1 mg/dL (Negative) H 06/21/21 18: Ur Leukocyte Esterase Negative (Negative) 06/21/21 18:[address] Abd/Pel: Radiologist's impression: 1. Mid to distal small bowel obstruction, with transition point likely in the lower right abdomen. This could relate to adhesions from multiple prior small bowel resections. 2. Severe fluid distension of the stomach and duodenum. Gastric tube placement should be considered. Discharge Plan Discharge Patient Disposition: Admitted As Inpatient Clinical Impression: SBO (small bowel obstruction) Condition: Stable Coding Level of Care Code ED Records Clerk for Chg Fwd Exam Detailed
[2021-06-21 11:02] LABS: Basophils % 0.2 %; Eosinophils # 0.1 10^3/uL (0.0-0.8); Eosinophils % 0.3 %; Hematocrit 43.7 % (37.0-47.0); Hemoglobin 15.2 g/dL (11.5-15.3); Lymphocytes # 2.2 10^3/uL (0.8-4.8); Lymphocytes % 12.5 %; Mean Corpuscular HGB Conc 34.8 g/dL (30.0-36.0); Mean Corpuscular Hemoglobin 31.5 pg (28.0-34.0); Mean Corpuscular Volume 90.5 fl (81-99); Mean Platelet Volume 8.8 fL (7.4-10.4); Monocytes # 0.7 10^3/uL (0.2-0.9); Monocytes % 3.9 %; Neutrophils # 14.33 10^3/uL (1.8-7.7); Neutrophils % 82.7 %; Nucleated Red Blood Cells % 0 %; Platelet Count 662 10^3/cmm (130-400); Red Blood Count 4.83 10^6/uL (4.1-5.3); Red Cell Distribution Width 12.6 % (12.1-15.1); White Blood Count 17.3 10^3/uL (4.0-10.0)
[2021-06-21 11:20] LABS: Alanine Aminotransferase 32 U/L (0-33); Albumin Level 5.1 g/dL (3.5-5.2); Alkaline Phosphatase 88 IU/L (35-105); Anion Gap 20.9 (5-19); Aspartate Amino Transferase 23 U/L (0-32); Blood Urea Nitrogen 11 mg/dL (8-23); Calcium 10.6 mg/dL (8.5-10.5); Carbon Dioxide 19 mmol/L (22-29); Chloride 102 mmol/L (98-107); Globulin 3.4 g/dL (1.3-4.6); Glomerular Filtration Rate 84.8 mL/min (90-130); Glucose 176 mg/dL (65-115); Lipase 15 U/L (13-60); Osmolality Calculated 290 mOsm/kg (285-295); Potassium 3.9 mmol/L (3.5-5.1); Sodium 138 mmol/L (136-145); Total Bilirubin 0.6 mg/dL (0.15-1.2); Total Protein 8.5 g/dL (6.6-8.7)
--- NOTE | 2021-06-21 11:22 | CTR_ITS ---
PROCEDURE INFORMATION: Exam: CT Abdomen And Pelvis With Contrast Exam date and time: 06/21/2021 11:22 AM Age: 61 years old Clinical indication: Nausea and vomiting; Abdominal pain; Prior surgery; Surgery type: Kypho, hyst, appy, gb, spleenectomy, colon resection; Additional info: Abd pain TECHNIQUE: Imaging protocol: Computed tomography of the abdomen and pelvis with contrast. Radiation optimization: All CT scans at this facility use at least one of these dose optimization techniques: automated exposure control; mA and/or kV adjustment per patient size (includes targeted exams where dose is matched to clinical indication); or iterative reconstruction. Contrast material: OMNI 300; Contrast volume: 75 ml; Contrast route: INTRAVENOUS (IV); COMPARISON: CT abdomen pelvis w con* [id number] 12/30/2020 2:02 PM RADIATION DOSE METRICS: Total DLP (mGy-cm): 734.66 FINDINGS: Tubes, catheters and devices: Multiple surgical clips near the GE junction. Liver: Normal. No mass. Gallbladder and bile ducts: Cholecystectomy. Mild prominence of the bile ducts is consistent with reservoir effect. Pancreas: Atrophic pancreas. Spleen: Stable 0.7 cm hypodense lesion in the spleen. This is too small to characterize but is most likely a cyst. No follow-up imaging is recommended. Adrenal glands: Normal. No mass. Kidneys and ureters: Normal. No hydronephrosis. Stomach and bowel: Fluid distended stomach. Severe fluid distension of the duodenum and multiple loops of proximal to mid small bowel. The duodenum measures 6.0 cm in diameter. The jejunum measures up to 5.5 cm. The colon is decompressed with a small amount of scattered gas. Partial small bowel resection is in the lower mid and lower right abdomen. An exact transition point is not identified but is most likely in the lower right abdomen. Appendix: No evidence of appendicitis. Intraperitoneal space: No peritoneal fluid collection. No free peritoneal air. Vasculature: Arterial calcifications. No aneurysm. Lymph nodes: Unremarkable. No enlarged lymph nodes. Urinary bladder: Unremarkable as visualized. Reproductive: The uterus and right ovary are absent. Probable small retained left ovary. Bones/joints: T12 kyphoplasty. No acute fracture. Soft tissues: Surgical clip in the umbilicus region. CT/CT abdomen pelvis w con* [id number] IMPRESSION: 1. Mid to distal small bowel obstruction, with transition point likely in the lower right abdomen. This could relate to adhesions from multiple prior small bowel resections. 2. Severe fluid distension of the stomach and duodenum. Gastric tube placement should be considered.
[2021-06-21 12:14] LABS: Lactic Sepsis W/Reflex 1.5 mmol/L (0.5-2.2)
[2021-06-21] MEDS: sodium chloride 0.9% 1,000 ML 999 ML IV (14:59)
[2021-06-21] MEDS: ondansetron 2 mg/ML SDV 2 mL 4 MG IVP ×2 (15:02→21:44)
[2021-06-21] MEDS: LORazepam 2 mg/mL INJ 1 mL 1 MG IVP (15:02)
[2021-06-21] MEDS: iohexol 300 mg/mL 100 mL Btl IV (17:43)
[2021-06-21] MEDS: HYDROmorphone 1 mg/mL INJ 1 mL 0.5 MG IVP (18:22)
--- NOTE | 2021-06-21 18:30 | ANES.PROC ---
Anesthesia Procedures Procedure/Date: 06/21/21 Procedure Narrative: Requested to start IV after multiple unsuccessful attempts. After sterile prep and using real time US guidance for vessel selection an 18 g PIV was inserted with real time visualization of needle entry and real time visualization of catheter advancement. Tolerated well. 1 attempt.
[2021-06-21 18:44] LABS: Add Urine Microscopic? NO; Charge for UA Resulting for Rev
[2021-06-21] MEDS: LORazepam 2 mg/mL INJ 1 mL 0.5 MG IVP (18:48)
[2021-06-21 18:50] LABS: Blood Urine Neg (Negative); Glucose Urine UA Norm (Normal); Ketones Urine Negative (Negative); Nitrate Urine Negative (Negative); Protein Urine Neg (Negative); Urine Appearance Clear (CLEAR); Urine Color Amber (Yellow); pH Urine 5 (5-7)
[2021-06-21 18:51] LABS: Bilirubin Urine 1+ (Negative); Leukocyte Esterase Urine Negative (Negative); Urobilinogen Urine 1 mg/dL (Negative)
[2021-06-21 19:42] LABS: Lactate (Lactic Acid level) 1.4 mmol/L (0.5-2.2)
--- NOTE | 2021-06-21 20:10 | XRR_ITS ---
PROCEDURE INFORMATION: Exam: XR Abdomen Exam date and time: 06/21/2021 8:10 PM Age: 61 years old Clinical indication: Device placement; Gi device; Nasogastric tube; Additional info: Ng tube placement TECHNIQUE: Imaging protocol: XR of the abdomen. Views: Frontal supine view of the abdomen. 1 View. COMPARISON: CT abdomen pelvis w con* [id number] 06/21/2021 5:43 PM FINDINGS: Tubes, catheters and devices: Gastric tube placement with tip in the proximal stomach. The side port is in the distal thoracic esophagus. Gastrointestinal tract: Normal. No bowel dilation. Intraperitoneal space: Multiple clips in the upper abdomen. Bones/joints: L1 kyphoplasty changes. XR/XR abdomen 1V* [id number] IMPRESSION: Gastric tube tip in the proximal stomach.
--- NOTE | 2021-06-21 20:20 | P.HP_ITS ---
Providers/Chief Complaint Primary Care Provider: Frank Smith DO Chief Complaint: abd pain History of Present Illness Yessi Schulte is a 61 year old female with a past medical history of hypertension, multiple abdominal surgeries for multiple ulcers she tells me that they had to take her colon out and had had multiple surgeries for this, depression, hypertension, CAD, who presents to [facility] due to 1 day history of nausea, vomiting, abdominal pain, decreased stooling. Patient tells that she has a recurrent history of small bowel tractions, due to multiple abdominal surgeries due to ulcers she tells me, she tells me that she had to have her colon out, she had multiple surgeries for this up in [place]. She t ells me that yesterday suddenly it was like a switch that turned on she could not stool anymore, she has significant nausea, vomiting, decreased oral intake, decreased appetite, abdominal distention, abdominal pain. He denies any fevers, chills, no nausea, no vomiting. Status post cholecystectomy. Still has her appendix. In the emergency room she was found to have a small bowel obstruction, distal, with transition point in the right lower abdomen, NG tube was placed, hospitalist team was called for admission. Denies any history of COVID-19, received both Covid vaccinations. Review of Systems Const: Denies: fever(s), chills, fatigue or malaise Eyes: Denies: change in vision or blurry vision ENMT: Denies: nasal congestion Resp: Denies: dyspnea, productive cough, non-productive cough or wheezing GI: Reports: abdominal pain, nausea, vomiting and bloating; Denies: hematochezia or melena : Denies: flank pain, dysuria or urinary frequency Musc: Denies: neck pain Skin/Breast: Denies: rash Neuro: Denies: headache(s), dizziness or vertigo Endo: Denies: polyuria or polydipsia Medications/Allergies Home Medications Medication Instructions Recorded Confirmed Last Taken Type cam boot #1 ea 03/21/20 06/21/21 Unknown Rx crutch #2 each 03/21/20 06/21/21 Unknown Rx bone stimulator #1 ea 05/10/20 06/21/21 Unknown Rx ASO on the right #1 ea 09/28/20 06/21/21 Unknown Rx Sole Supports #1 ea 09/28/20 06/21/21 Unknown Rx diphenhydramine HCl 25 mg capsule 25 mg PO PRN 10/26/20 06/21/21 10/26/20 History (Benadryl) metoprolol succinate 25 mg 12.5 mg PO BID #90 tab 02/06/21 06/21/21 06/20/21 Rx tablet,extended release 24 hr isosorbide mononitrate 30 mg 30 mg PO BEDTIME #30 tab 02/21/21 06/21/21 06/20/21 Rx tablet,extended release 24 hr venlafaxine 75 mg capsule,extended 75 mg PO BEDTIME #30 cap 02/21/21 06/21/21 06/20/21 Rx release 24 hr nitroglycerin 0.4 mg sublingual 0.4 mg SUBLINGUAL Q5M PRN #20 tab 06/05/21 06/21/21 Unknown Rx tablet (Nitrostat) Vitamin B-12 1 tab PO DAILY 06/21/21 06/21/21 Unknown History Vitamin D3 1 cap PO DAILY 06/21/21 06/21/21 Unknown History albuterol sulfate 90 mcg/actuation 2 puff INHALATION QID PRN 06/21/21 06/21/21 Unknown History aerosol inhaler (ProAir HFA) ascorbic acid (vitamin C) 500 mg 500 mg PO DAILY 06/21/21 06/21/21 Unknown History tablet (Vitamin C) aspirin 81 mg tablet,delayed 81 mg PO BEDTIME 06/21/21 06/21/21 Unknown History release gabapentin 300 mg capsule 300 mg PO Q8H 06/21/21 06/21/21 06/20/21 History glipizide 10 mg tablet, extended 10 mg PO QAM 06/21/21 06/21/21 06/20/21 History release 24 hr Allergies Allergy/AdvReac Type Severity Reaction Status Date / Time lidocaine Allergy Severe ALGY-Swell Verified 06/21/21 09:41 Lip/Tongue/Throat ciprofloxacin [From Cipro] Allergy ALGY-Redness Verified 06/21/21 09:41 of Skin codeine Allergy ADR-Nausea Verified 06/21/21 09:41 morphine Allergy ADR-Vomitin Verified 06/21/21 09:41 g Penicillins Allergy ALGY-Swell Verified 06/21/21 09:41 Lip/Tongue/Throat procaine [From Novocain] Allergy ALGY-Swell Verified 06/21/21 09:41 Lip/Tongue/Throat prochlorperazine Allergy ADR-Muscle Verified 06/21/21 09:41 [From Compazine] Pain PFSH Acute PFSH: Medical History Depression HTN (hypertension) with goal to be determined Myocardial infarction acute Pancreatitis SBO (small bowel obstruction) Type 2 diabetes mellitus without complication, with no history of insulin use Surgical History (Updated 06/21/21 @ 20:25 by Og Garcia MD) H/O exploratory laparotomy History of appendectomy History of incisional hernia repair S/P cardiac cath S/P cholecystectomy S/P DONNA-BSO Status post colonoscopy Social History Smoking and tobacco status: current every day smoker Alcohol intake: current Alcohol intake frequency: holidays/special occasions only Vitals/I&O/Wt Last Vital Signs Temp 97.8 F 06/21/21 09:41 Pulse 105 H 06/21/21 19:46 Resp 27 H 06/21/21 19:46 BP 130/74 06/21/21 18:15 Pulse Ox 94 06/21/21 19:31 06/21/21 06/21/21 06/21/21 06:59 14:59 22:59 Intake Total 1000 / 1000 Balance 1000 / 1000 Weight last 48 hrs Weight 53.524 kg Physical Exam Const: COMMON NORMALS: no acute distress and patient oriented x3 GENERAL APPEARANCE: cooperative, well kempt and well developed HENMT: COMMON NORMALS: normocephalic, Normal external nose present and oropha rynx normal HEAD & SCALP: normocephalic FACE & SINUS: normal facial exam NOSE: Normal external nose present MOUTH: Normal oral and palatal mucosa present THROAT: posterior oropharynx normal Eye: COMMON NORMALS: Equal, round and reactive pupils present, EOMs intact bilaterally, conjunctivae normal and no scleral icterus PUPIL: Yes Equal, round and reactive pupils present Neck/C-Spine: COMMON NORMALS: full ROM, no lymphadenopathy, Thyroid normal and No carotid bruits THYROID: Thyroid normal Lymph: LYMPHATIC: no lymphadenopathy noted Chest: COMMONS NORMALS: normal inspection of the chest Resp: COMMON NORMALS: normal respiratory effort, No retractions, No use of accessory muscles and clear to auscultation bilaterally AUSCULTATION: clear to auscultation bilaterally Cardio: COMMON NORMALS: no JVD, regular rate, regular rhythm, S1 normal heart sound present, S2 normal heart sound present, No murmurs present (Cardio) and Peripheral pulses 2+ throughout RATE: regular rate RHYTHM: regular rhythm HEART SOUNDS: S1 normal heart sound present and S2 normal heart sound present PERIPHERAL PULSES: Peripheral pulses 2+ throughout GI: INSPECTION: Yes abdominal distension and Yes scar AUSCULTATION: Yes Hypoactive bowel sounds present PALPATION: Yes Tenderness to palpation present (GI) (Diffusely tender), No Guarding due to palpation present (GI) and No Rigid due to palpation PERCUSSION: tympanic to percussion OTHER: Abdomen, vertical incision scar, with contraction of skin : COMMON NORMALS: Yes no CVA tenderness Extremity: COMMON NORMALS: normal to inspection, full ROM, capillary refill normal, no calf tenderness and no pedal edema Neuro: COMMON NORMALS: patient oriented x3, CN's II-XII intact bilaterally, moves all extremities, no focal motor deficits and no sensory deficits noted Psych: COMMON NORMALS: mental status grossly normal, Normal thought process present, cooperative and speech normal APPEARANCE: Yes well kempt SPEECH: Yes normal speech THOUGHT PROCESS: Normal thought process present Skin: COMMON NORMALS: turgor normal and no jaundice GENERAL SKIN EXAM: turgor normal Data : 06/21/21 10:40 06/21/21 10:40 A&P Assessment and plan (1) Type 2 diabetes mellitus without complication, with no history of insulin use: Status: Acute (2) Essential hypertension: Status: Acute (3) Neutrophilic leukocytosis: Status: Acute (4) SBO (small bowel obstruction): Status: Acute Plan Acute on chronic small bowel obstruction -History of multiple abdominal surgeries, history of colon resection -CT scan shows -1. Mid to distal small bowel obstruction, with transition point likely in the lower right abdomen.? This could relate to adhesions from multiple prior small bowel resections. 2. Severe fluid distension of the stomach and duodenum.? Gastric tube placement should be considered. -White blood cell count 17.7 Plan: -Admit to general medical floors -NG tube placed, low intermittent suction -N.p.o. 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
[2021-06-21 20:41] LABS: C Reactive Protein 0.6 mg/L (0.0-4.9)
[2021-06-21 22:58] LABS: Estmated Average Glucose 126
[2021-06-21 23:08] LABS: Thyroid Stimulating Hormone 1.56 uIU/mL (0.27-4.20)
[2021-06-21] MEDS: sodium chlor 0.9% + KCl 20 mEq 20 MEQ/1,000 ML BAG 100 MEQ IV (23:29)
[2021-06-21] MEDS: metroNIDAZOLE IV 500 MG/100 ML PREMIX 100 MG IV (23:43)
[2021-06-21] MEDS: enoxaparin 40 mg/0.4 mL Syringe SUBCUT (23:57)
[2021-06-22] VITALS (51 sets, daily range): BP systolic 106–136; BP diastolic 64–92; PULSE 0–97; RESP 6–23; TEMP 37–37.1; O2SAT 85–98
[2021-06-22] MEDS: HYDROmorphone 1 mg/mL INJ 1 mL IVP ×5 (00:46→19:06)
[2021-06-22] MEDS: levofloxacin-dextrose 5 % 750 MG/150 ML PREMIX 100 MG IV (00:55)
[2021-06-22] MEDS: ondansetron 2 mg/ML SDV 2 mL 4 MG IVP ×2 (04:35→16:48)
--- NOTE | 2021-06-22 04:38 | PC.NURSE ---
at 0046 patient report pain patient given prn hydromorphone at approx 0430 patient began n/v patient given prn zofran
[2021-06-22 05:19] LABS: Glucose Point of Care 104 mg/dL (70-110)
--- NOTE | 2021-06-22 06:08 | PC.NURSE ---
patient requested pain medication patient received prn hydromorphone at approx 0530
[2021-06-22 06:17] LABS: Basophils % 0.2 %; Eosinophils % 0.1 %; Hematocrit 30.9 % (37.0-47.0); Hemoglobin 10.5 g/dL (11.5-15.3); Lymphocytes # 2.6 10^3/uL (0.8-4.8); Lymphocytes % 24.4 %; Mean Corpuscular Hemoglobin 31.7 pg (28.0-34.0); Mean Corpuscular Volume 93.4 fl (81-99); Mean Platelet Volume 8.3 fL (7.4-10.4); Monocytes # 0.9 10^3/uL (0.2-0.9); Monocytes % 8.4 %; Neutrophils # 6.93 10^3/uL (1.8-7.7); Neutrophils % 66.5 %; Nucleated Red Blood Cells % 0 %; Platelet Count 441 10^3/cmm (130-400); Red Blood Count 3.31 10^6/uL (4.1-5.3); Red Cell Distribution Width 12.8 % (12.1-15.1); White Blood Count 10.4 10^3/uL (4.0-10.0)
[2021-06-22 06:24] LABS: INR 1.04 (0.8-1.2)
[2021-06-22 06:34] LABS: Alanine Aminotransferase 18 U/L (0-33); Albumin Level 3.5 g/dL (3.5-5.2); Alkaline Phosphatase 56 IU/L (35-105); Anion Gap 12.9 (5-19); Aspartate Amino Transferase 10 U/L (0-32); Blood Urea Nitrogen 9 mg/dL (8-23); Calcium 7.5 mg/dL (8.5-10.5); Carbon Dioxide 22 mmol/L (22-29); Chloride 108 mmol/L (98-107); Glucose 102 mg/dL (65-115); Magnesium 1.9 mg/dL (1.7-2.3); Osmolality Calculated 287 mOsm/kg (285-295); Phosphorus 2.6 mg/dL (2.5-4.5); Potassium 3.9 mmol/L (3.5-5.1); Sodium 139 mmol/L (136-145); Total Bilirubin 0.5 mg/dL (0.15-1.2); Total Protein 5.5 g/dL (6.6-8.7)
--- NOTE | 2021-06-22 06:55 | PM.CONSULT ---
Providers/Reason For Consult Consulting Physician/Specialty*: General Surgery Seymour Meza MD Reason for Consult*: Small bowel obstruction. Attending Physician: Og Garcia MD Primary Care Provider: Frank Smith DO History of Present Illness History of Present Illness Yessi Schulte is a 61 year old female who tells me that the night before last she felt like something popped in her abdomen and points to the left lower quadrant. She developed abdominal pain fairly suddenly and had multiple subsequent episodes of nausea and vomiting. She denies hematemesis. She says this has happened to her multiple times in the past. She tells me she has had 28 operations on her abdomen in [place], but the last operation she had was 11 years ago. Most of these had to do with bowel resections for obstructions. She denies any known history of inflammatory bowel disease. She apparently may have told the hospitalist on admission that she still has her appendix but she told me it has been removed. She has had a cholecystectomy, total abdominal hysterectomy, appendectomy, 3 C-sections, the multiple bowel resections for presumed adhesions and an operation on her intestine for ulcers. She says the last time she had a bowel movement was a couple of days ago. She does not recall passing flatus yesterday. The patient came to the emergency room and a CAT scan showed evidence of a small bowel obstruction. A nasogastric tube was placed. She says she still having some abdominal discomfort now. Review of Systems General: Reports: 10 or more systems reviewed and unremarkable except in HPI and below Const: Denies: fever(s) Resp: Denies: dyspnea GI: Reports: abdominal pain, nausea and vomiting; Denies: hematemesis or diarrhea Medications/Allergies Home Medications Medication Instructions Recorded Confirmed Last Taken Type cam boot #1 ea 03/21/20 06/21/21 Unknown Rx crutch #2 each 03/21/20 06/21/21 Unknown Rx bone stimulator #1 ea 05/10/20 06/21/21 Unknown Rx ASO on the right #1 ea 09/28/20 06/21/21 Unknown Rx Sole Supports #1 ea 09/28/20 06/21/21 Unknown Rx diphenhydramine HCl 25 mg capsule 25 mg PO PRN 10/26/20 06/21/21 10/26/20 History (Benadryl) metoprolol succinate 25 mg 12.5 mg PO BID #90 tab 02/06/21 06/21/21 06/20/21 Rx tablet,extended release 24 hr isosorbide mononitrate 30 mg 30 mg PO BEDTIME #30 tab 02/21/21 06/21/21 06/20/21 Rx tablet,extended release 24 hr venlafaxine 75 mg capsule,extended 75 mg PO BEDTIME #30 cap 02/21/21 06/21/21 06/20/21 Rx release 24 hr nitroglycerin 0.4 mg sublingual 0.4 mg SUBLINGUAL Q5M PRN #20 tab 06/05/21 06/21/21 Unknown Rx tablet (Nitrostat) Vitamin B-12 1 tab PO DAILY 06/21/21 06/21/21 Unknown History Vitamin D3 1 cap PO DAILY 06/21/21 06/21/21 Unknown History albuterol sulfate 90 mcg/actuation 2 puff INHALATION QID PRN 06/21/21 06/21/21 Unknown History aerosol inhaler (ProAir HFA) ascorbic acid (vitamin C) 500 mg 500 mg PO DAILY 06/21/21 06/21/21 Unknown History tablet (Vitamin C) aspirin 81 mg tablet,delayed 81 mg PO BEDTIME 06/21/21 06/21/21 Unknown History release gabapentin 300 mg capsule 300 mg PO Q8H 06/21/21 06/21/21 06/20/21 History glipizide 10 mg tablet, extended 10 mg PO QAM 06/21/21 06/21/21 06/20/21 History release 24 hr Allergies Allergy/AdvReac Type Severity Reaction Status Date / Time lidocaine Allergy Severe ALGY-Swell Verified 06/21/21 09:41 Lip/Tongue/Throat ciprofloxacin [From Cipro] Allergy ALGY-Redness Verified 06/21/21 09:41 of Skin codeine Allergy ADR-Nausea Verified 06/21/21 09:41 morphine Allergy ADR-Vomitin Verified 06/21/21 09:41 g Penicillins Allergy ALGY-Swell Verified 06/21/21 09:41 Lip/Tongue/Throat procaine [From Novocain] Allergy ALGY-Swell Verified 06/21/21 09:41 Lip/Tongue/Throat prochlorperazine Allergy ADR-Muscle Verified 06/21/21 09:41 [From Compazine] Pain Current Medications Generic Name Dose Route Start Last Admin Trade Name Freq PRN Reason Stop Dose Admin Aspirin 81 mg 06/21/21 22:18 06/21/21 22:31 Aspirin 81 Mg Ec Tablet PO Not Given BEDTIME ISABELLA Enoxaparin Sodium 40 mg 06/21/21 23:00 06/21/21 23:57 Enoxaparin 40 Mg/0.4 Ml Syringe SUBCUT 40 mg Q24H ISABELLA Administration Gabapentin 300 mg 06/21/21 22:18 06/22/21 05:24 Gabapentin 300 Mg Capsule PO Not Given Q8H ISABELLA Hydromorphone HCl 1 mg 06/21/21 22:18 06/22/21 05:35 Hydromorphone 1 Mg/Ml Inj 1 Ml IVP 1 mg Q4H PRN Administration PAIN Potassium Chloride/Sodium Chloride 20 meq in 1,000 mls @ 100 mls/hr 06/21/21 22:18 06/21/21 23:29 Sodium Chlor 0.9% + Kcl 20 Meq IV 100 mls/hr .Q10H ISABELLA Administration Isosorbide Mononitrate 30 mg 06/21/21 22:18 06/21/21 22:32 Isosorbide Mononitrate Er 30 Mg Tablet PO Not Given BEDTIME ISABELLA Ondansetron HCl 4 mg 06/21/21 22:18 06/22/21 04:35 Ondansetron 2 Mg/Ml Sdv 2 Ml IVP 4 mg Q8H PRN Administration vomiting, or N/V if npo Pantoprazole Sodium 40 mg 06/21/21 22:18 06/21/21 22:33 Pantoprazole 40 Mg Sdv IVP Not Given Q12H ISABELLA Venlafaxine HCl 75 mg 06/21/21 22:18 06/21/21 22:33 Venlafaxine Er (24hr) 75 Mg Capsule PO Not Given BEDTIME ISABELLA PFSH Acute PFSH: Medical History Depression HTN (hypertension) with goal to be determined Myocardial infarction acute Pancreatitis SBO (small bowel obstruction) Type 2 diabetes mellitus without complication, with no history of insulin use Surgical History (Updated 06/22/21 @ 07:08 by Seymour Meza MD) H/O exploratory laparotomy Multiple bowel resections History of 3 sections History of appendectomy History of incisional hernia repair S/P cardiac cath S/P cholecystectomy S/P DONNA-BSO Status post colonoscopy Social History (Updated 06/22/21 @ 07:06 by Seymour Meza MD) Smoking and tobacco status: current every day smoker cigarettes [ Other cigarette details: On and off ] Alcohol intake: current Alcohol intake frequency: holidays/special occasions only Vitals/I&O/Wt Last Vital Signs Temp 98.6 F 06/22/21 00:37 Pulse 90 06/22/21 04:47 Resp 18 06/22/21 05:35 BP 114/73 06/22/21 04:47 Pulse Ox 98 06/22/21 05:35 06/21/21 06/21/21 06/22/21 14:59 22:59 06:59 Intake Total 1000 / 1250 250 / 1250 Balance 1000 / 1250 250 / 1250 Weight last 48 hrs Weight 118 lb Physical Exam Narrative: EXAM NARRATIVE: The patient was encountered in her room in the emergency department. She has a nasogastric tube in place which is draining some dark bilious material. She still seems to have some gagging on occasion. The pupils seem equal. No carotid bruits are heard. The lungs are clear. The heart seems regular. The abdomen reveals hypoactive bowel sounds. She has a somewhat retracted midline scar which looks like it has been used multiple times. She has some mild tenderness in the lower quadrants. She has no evidence of peritonitis. The extremities reveal no edema. Neurologically the patient appears to be grossly intact. Data : 06/22/21 06:05 06/22/21 06:05 CT Abd/Pel: Radiologist's impression: CT abdomen/pelvis 06/21/2021 IMPRESSION: 1. Mid to distal small bowel obstruction, with transition point likely in the lower right abdomen.? This could relate to adhesions from multiple prior small bowel resections. 2. Severe fluid distension of the stomach and duodenum.? Gastric tube placement should be considered. A&P Assessment and plan (1) SBO (small bowel obstruction): It sounds like this has been a recurring problem for the patient, but she says she has not had any surgery for over 10 years. It sounds like she has a rather extensive history of abdominal surgery, however. She does not have any evidence of peritonitis presently and her white blood cell count is improved. We discussed conservative management for her small bowel obstruction. She understandably is well aware of how this is treated. I will continue following with you. Status: Acute Consult Attestations Medical Necessity Statement: See admitting service's notation. 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
[2021-06-22] MEDS: metroNIDAZOLE IV 500 MG/100 ML PREMIX 100 MG IV ×3 (09:28→23:19)
[2021-06-22] MEDS: sodium chlor 0.9% + KCl 20 mEq 20 MEQ/1,000 ML BAG 100 MEQ IV ×2 (09:29→17:52)
[2021-06-22] MEDS: metoprolol succinate ER (24 HR) 25 mg Tablet 12.5 MG PO ×2 (09:29→17:50)
[2021-06-22 10:52] LABS: Glucose Point of Care 114 mg/dL (70-110)
[2021-06-22] MEDS: pantoprazole 40 mg SDV IVP ×2 (11:19→21:22)
[2021-06-22 13:11] LABS: Glucose Point of Care 118 mg/dL (70-110)
--- NOTE | 2021-06-22 16:25 | PC.NURSE ---
REPORT TO [facility] ON [facility]
--- NOTE | 2021-06-22 18:14 | PM.PN ---
Subjective Subjective: Interval history: Patient has nasogastric tube draining bilious content Vitals/I&O/Wt Last Vital Signs Temp 98.6 F 06/22/21 00:37 Pulse 0 L 06/22/21 15:50 Resp 18 06/22/21 15:11 BP 118/77 06/22/21 16:00 Pulse Ox 96 06/22/21 15:50 06/22/21 06/22/21 06/22/21 06:59 14:59 22:59 Intake Total 250 / 1250 1000 / 1000 1038.333 / 2037.333 Balance 250 / 1250 1000 / 1000 1038.333 / 2037.333 Weight last 48 hrs Weight 53.524 kg Physical Exam Narrative: EXAM NARRATIVE: Patient has NG tube In distress because of gag reflex Lower quadrant tenderness Dehydrated S1, S2 No audible stridor or wheezing Saturating well on room air Data : 06/22/21 06:05 06/22/21 06:05 A&P Assessment and plan (1) SBO (small bowel obstruction): Status: Acute (2) Generalized body aches: Status: Acute Plan Recurrent small bowel obstruction NG to suction Conservative management N.p.o. 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
[2021-06-22 21:16] LABS: Glucose Point of Care 100 mg/dL (70-110)
[2021-06-22] MEDS: enoxaparin 40 mg/0.4 mL Syringe SUBCUT (23:21)
[2021-06-23] VITALS (13 sets, daily range): BP systolic 102–134; BP diastolic 56–78; PULSE 0–85; RESP 14–22; TEMP 36.8–37; O2SAT 92–97
[2021-06-23] MEDS: HYDROmorphone 1 mg/mL INJ 1 mL IVP ×5 (00:42→18:27)
[2021-06-23] MEDS: levofloxacin-dextrose 5 % 750 MG/150 ML PREMIX 100 MG IV (00:50)
[2021-06-23] MEDS: sodium chlor 0.9% + KCl 20 mEq 20 MEQ/1,000 ML BAG 100 MEQ IV ×2 (04:53→15:57)
[2021-06-23] MEDS: ondansetron 2 mg/ML SDV 2 mL 4 MG IVP ×4 (04:54→18:27)
--- NOTE | 2021-06-23 06:30 | XRR_ITS ---
PROCEDURE INFORMATION: Exam: XR Abdomen Exam date and time: 06/23/2021 6:30 AM Age: 61 years old Clinical indication: Device placement; Gi device; Nasogastric tube; Additional info: Check ng placement TECHNIQUE: Imaging protocol: XR of the abdomen. Views: Frontal supine view of the abdomen. 1 View. COMPARISON: CR XR abdomen 1V* [id number] 06/21/2021 8:11 PM FINDINGS: Tubes, catheters and devices: A nasogastric tube is present with the tip projecting in the stomach. Gastrointestinal tract: Normal. No bowel dilation. Intraperitoneal space: Multiple surgical clips are present in the abdomen. Bones/joints: Unremarkable. XR/XR KUB portable [id number] IMPRESSION: The tip of the nasogastric tube projects on the stomach.
--- NOTE | 2021-06-23 06:46 | PM.PN ---
Subjective Subjective: Interval history: The patient says she has been having small episodes of emesis all night. I have been telling the nurses all night that this tube is not in the right place. Vitals/I&O/Wt Last Vital Signs Temp 98.8 F 06/22/21 20:00 Pulse 85 06/23/21 04:00 Resp 20 H 06/23/21 04:53 BP 134/56 06/23/21 04:00 Pulse Ox 96 06/23/21 04:00 06/22/21 06/22/21 06/23/21 14:59 22:59 06:59 Intake Total 1000 / 3288.333 1038.333 / 3288.333 1250 / 3288.333 Output Total 240 / 240 Balance 1000 / 3048.333 1038.333 / 3048.333 1010 / 3048.333 Weight last 48 hrs Weight 118 lb Physical Exam Narrative: EXAM NARRATIVE: The patient still seems to have some scattered tenderness on exam. Data : 06/23/21 05:53 06/22/21 06:05 A&P Assessment and plan (1) SBO (small bowel obstruction): I checked a KUB for NG tube placement --the nasogastric tube appears to be in good position and the patient's gas pattern today is not very remarkable. She clearly has some colonic air present. The patient thinks she may just be continuously gagging on the nasogastric tube. She says she would like to try to get rid of it, knowing that there is a chance it may have to be reinserted. We will give it a try. Status: Acute Attestations Medical Necessity Statement*: See admitting service's notation. Coding Level of Care Code Acute Strapping Machine Operator for Sonya Patrick Diagnoses SBO (small bowel obstruction) K56.609
[2021-06-23 06:47] LABS: Basophils % 0.2 %; Eosinophils % 0.3 %; Hematocrit 31.4 % (37.0-47.0); Hemoglobin 10.2 g/dL (11.5-15.3); Lymphocytes # 2.5 10^3/uL (0.8-4.8); Lymphocytes % 26.7 %; Mean Corpuscular HGB Conc 32.5 g/dL (30.0-36.0); Mean Corpuscular Hemoglobin 31.6 pg (28.0-34.0); Mean Corpuscular Volume 97.2 fl (81-99); Mean Platelet Volume 8.7 fL (7.4-10.4); Monocytes # 0.7 10^3/uL (0.2-0.9); Neutrophils # 6.22 10^3/uL (1.8-7.7); Neutrophils % 65.3 %; Nucleated Red Blood Cells % 0 %; Platelet Count 426 10^3/cmm (130-400); Red Blood Count 3.23 10^6/uL (4.1-5.3); Red Cell Distribution Width 12.9 % (12.1-15.1); White Blood Count 9.5 10^3/uL (4.0-10.0)
[2021-06-23 06:49] LABS: Glucose Point of Care 127 mg/dL (70-110)
[2021-06-23 07:07] LABS: Alanine Aminotransferase 22 U/L (0-33); Albumin Level 3.4 g/dL (3.5-5.2); Alkaline Phosphatase 61 IU/L (35-105); Anion Gap 16.1 (5-19); Aspartate Amino Transferase 16 U/L (0-32); Blood Urea Nitrogen 4 mg/dL (8-23); Calcium 8.6 mg/dL (8.5-10.5); Carbon Dioxide 18 mmol/L (22-29); Chloride 108 mmol/L (98-107); Globulin 2.5 g/dL (1.3-4.6); Glomerular Filtration Rate 161.7 mL/min (90-130); Glucose 100 mg/dL (65-115); Magnesium 1.9 mg/dL (1.7-2.3); Osmolality Calculated 283 mOsm/kg (285-295); Phosphorus 2.1 mg/dL (2.5-4.5); Potassium 4.1 mmol/L (3.5-5.1); Sodium 138 mmol/L (136-145); Total Bilirubin 0.4 mg/dL (0.15-1.2); Total Protein 5.9 g/dL (6.6-8.7)
--- NOTE | 2021-06-23 07:30 | PC.NURSE ---
Patient was very upset that she had to wait for a nurse to help unhook her NG tube from suction. The Aide had informed the patient that the nurse was with a dr in another room and that she was unable to unhook her NG tube and patient became very upset. Patient reports her NG tube is not functioning properly because she is still having nausea. Patient's called with concerns. Informed patient's that x-ray was in the room taking an x-ray to verify placement. This nurse explained to patient that she was very sorry patient had to wait but that we have other patients that require care as well and we will get to her as quickly as we can. Patient's plans to come up to visit her today.
[2021-06-23] MEDS: metroNIDAZOLE IV 500 MG/100 ML PREMIX 100 MG IV ×2 (08:19→15:59)
[2021-06-23] MEDS: pantoprazole 40 mg SDV IVP ×2 (09:28→22:15)
--- NOTE | 2021-06-23 11:09 | PM.PN ---
Subjective Subjective: Interval history: Patient has been experiencing a cough tip of the nasogastric tube projects in the stomach, still complaining of pain, patient is stating that if surgery is needed she would agree for it however she is not ready for colostomy, general surgery note reviewed, Patient is stating that she tolerates full liquid diet at home and every time she tries to eat semisolid she ends up in the hospital with obstruction Vitals/I&O/Wt Last Vital Signs Temp 98.6 F 06/23/21 08:00 Pulse 78 06/23/21 08:00 Resp 16 06/23/21 09:27 BP 115/71 06/23/21 08:00 Pulse Ox 96 06/23/21 08:00 06/22/21 06/23/21 06/23/21 22:59 06:59 14:59 Intake Total 1038.333 / 8.333 1250 / 3288.333 100 / 100 Output Total 240 / 240 300 / 300 Balance 1038.333 / 2038.333 1010 / 3048.333 -200 / -200 Physical Exam Narrative: EXAM NARRATIVE: Cachectic malnourished laparotomy scar zackary on her abdomen NG tube in place Bilious content 200 cc Dehydrated Malnourished S1, S2 Abdomen tender in right lower quadrant, bowel sounds absent No signs of edema EM appropriate Nonfocal neuro exam Data : 06/23/21 05:53 06/23/21 05:53 A&P Assessment and plan (1) SBO (small bowel obstruction): Status: Acute (2) Type 2 diabetes mellitus without complication, with no history of insulin use: Status: Acute Plan Recurrent small bowel obstruction NGT suction, patient has requested Dr. Meza to have her NG removed, She is requesting opioids for abdominal pain Repeat imaging of abdomen did show appropriate placement of nasogastric tube N.p.o. Opioids for analgesia Full code Gsurgery on board Attestations Medical Necessity Statement*: Continue medical management Time Spent in Patient Care: 15 minutes Coding Level of Care Code Acute Gravity Prospector for Chg Fwd Diagnoses SBO (small bowel obstruction) K56.609 Type 2 diabetes mellitus without complication, with no history of insulin use E11.9
[2021-06-23 11:14] LABS: Glucose Point of Care 109 mg/dL (70-110)
[2021-06-23 11:14] LABS: Glucose Point of Care 125 mg/dL (70-110)
[2021-06-23 17:17] LABS: Glucose Point of Care 100 mg/dL (70-110)
[2021-06-23] MEDS: isosorbide mononitrate ER 30 mg Tablet PO (22:15)
[2021-06-23] MEDS: enoxaparin 40 mg/0.4 mL Syringe SUBCUT (22:16)
[2021-06-24] VITALS (12 sets, daily range): BP systolic 97–147; BP diastolic 61–88; PULSE 0–89; RESP 16–18; TEMP 36.7–37.3; O2SAT 93–98
[2021-06-24] MEDS: metroNIDAZOLE IV 500 MG/100 ML PREMIX 100 MG IV ×2 (00:16→11:06)
[2021-06-24] MEDS: sodium chlor 0.9% + KCl 20 mEq 20 MEQ/1,000 ML BAG 100 MEQ IV ×2 (00:19→16:52)
[2021-06-24] MEDS: HYDROmorphone 1 mg/mL INJ 1 mL IVP ×2 (02:48→08:14)
[2021-06-24] MEDS: ondansetron 2 mg/ML SDV 2 mL 4 MG IVP ×4 (02:49→21:08)
[2021-06-24] MEDS: levofloxacin-dextrose 5 % 750 MG/150 ML PREMIX 100 MG IV (02:49)
[2021-06-24 06:45] LABS: Glucose Point of Care 106 mg/dL (70-110)
[2021-06-24 06:45] LABS: Glucose Point of Care 108 mg/dL (70-110)
[2021-06-24 06:48] LABS: Basophils % 0.1 %; Eosinophils % 0.2 %; Hematocrit 32.2 % (37.0-47.0); Hemoglobin 10.7 g/dL (11.5-15.3); Lymphocytes # 1.2 10^3/uL (0.8-4.8); Lymphocytes % 14.5 %; Mean Corpuscular HGB Conc 33.2 g/dL (30.0-36.0); Mean Corpuscular Hemoglobin 31.9 pg (28.0-34.0); Mean Corpuscular Volume 96.1 fl (81-99); Mean Platelet Volume 8.6 fL (7.4-10.4); Monocytes # 0.6 10^3/uL (0.2-0.9); Monocytes % 6.9 %; Neutrophils # 6.51 10^3/uL (1.8-7.7); Neutrophils % 77.9 %; Nucleated Red Blood Cells % 0 %; Platelet Count 426 10^3/cmm (130-400); Red Blood Count 3.35 10^6/uL (4.1-5.3); Red Cell Distribution Width 12.2 % (12.1-15.1); White Blood Count 8.4 10^3/uL (4.0-10.0)
[2021-06-24 07:11] LABS: Alanine Aminotransferase 27 U/L (0-33); Albumin Level 3.6 g/dL (3.5-5.2); Alkaline Phosphatase 54 IU/L (35-105); Anion Gap 20.8 (5-19); Aspartate Amino Transferase 24 U/L (0-32); Blood Urea Nitrogen 4 mg/dL (8-23); Calcium 8.9 mg/dL (8.5-10.5); Carbon Dioxide 17 mmol/L (22-29); Chloride 103 mmol/L (98-107); Globulin 2.1 g/dL (1.3-4.6); Glomerular Filtration Rate 161.7 mL/min (90-130); Glucose 96 mg/dL (65-115); Magnesium 1.9 mg/dL (1.7-2.3); Osmolality Calculated 281 mOsm/kg (285-295); Phosphorus 2.6 mg/dL (2.5-4.5); Potassium 3.8 mmol/L (3.5-5.1); Sodium 137 mmol/L (136-145); Total Bilirubin 0.4 mg/dL (0.15-1.2); Total Protein 5.7 g/dL (6.6-8.7)
--- NOTE | 2021-06-24 08:37 | P.PN_ITS ---
Subjective Subjective: Interval history: The patient remains reasonably comfortable with a nasogastric tube in place but still has not passed any flatus. Vitals/I&O/Wt Last Vital Signs Temp 98.3 F 06/24/21 07:54 Pulse 87 06/24/21 07:54 Resp 17 06/24/21 08:14 BP 99/63 06/24/21 07:54 Pulse Ox 95 06/24/21 07:54 06/23/21 06/24/21 06/24/21 22:59 06:59 14:59 Intake Total 100 / 2286.667 1086.667 / 2286.667 Output Total 350 / 650 Balance -250 / 2753.399 4895.667 / 1636.667 Physical Exam Narrative: EXAM NARRATIVE: Bowel sounds are hypoactive. She has very mild scattered tenderness about the abdomen. Data : 06/24/21 06:14 06/24/21 06:14 A&P Assessment and plan (1) SBO (small bowel obstruction): Still awaiting return of bowel function/resolution of small bowel obstruction. The patient tells me that she thinks she has mesh inside her abdomen, or at least did at one point in time. I told her that exploration of her abdomen may be quite dangerous with her history of mesh/adhesions. She has already had multiple resections and if she is in need of even more, it will not be a good situation. We obviously would love to see this resolve without any surgical management, but if she does not improve in the next several days then surgery is going to have to be entertained. Status: Acute Attestations Medical Necessity Statement*: See admitting service's notation. Coding Level of Care Code Acute Inside Sales Specialist for Sonya Patrick Diagnoses SBO (small bowel obstruction) K56.609
[2021-06-24 10:55] LABS: Glucose Point of Care 100 mg/dL (70-110)
[2021-06-24] MEDS: metoprolol succinate ER (24 HR) 25 mg Tablet 12.5 MG PO ×2 (11:03→16:57)
--- NOTE | 2021-06-24 13:52 | PM.PN ---
Subjective Subjective: Interval history: Patient still has nasogastric tube in place, not able to pass flatus, no bowel movement yet, no active emesis since yesterday, she is still very nauseous and complaining of pain I Descalated her IV Dilaudid to IV morphine in order to avoid opiate-induced constipation General surgery recommendations reviewed Also spoke with her daughter this morning as well Daughter told me that her teenage daughter was diagnosed with Crohn's disease and she had ileostomy which was never reversed until now and she is turning 15 this year that is why her mother is so reluctant for aggressive surgical intervention Vitals/I&O/Wt Last Vital Signs Temp 98.3 F 06/24/21 11:44 Pulse 88 06/24/21 11:44 Resp 18 06/24/21 11:44 BP 130/72 06/24/21 11:44 Pulse Ox 93 06/24/21 11:44 06/23/21 06/24/21 06/24/21 22:59 06:59 14:59 Intake Total 100 / 1200 1086.667 / 2286.667 100 / 100 Output Total 350 / 650 Balance -250 / 550 1086.667 / 1636.667 100 / 100 Physical Exam Narrative: EXAM NARRATIVE: Patient is sitting comfortably in her bed watching a movie on her phone Her abdomen is soft however slightly tender on deep palpation in lower quadrants Bowel sounds sluggish but present Nonfocal neuro exam Saturating well on room air Cachectic malnourished muscle mass loss Data : 06/24/21 06:14 06/24/21 06:14 A&P Assessment and plan (1) SBO (small bowel obstruction): Status: Acute (2) Type 2 diabetes mellitus without complication, with no history of insulin use: Status: Acute (3) Shortness of breath: Status: Acute (4) Cough: Status: Acute (5) Generalized body aches: Status: Acute (6) Fatigue: Status: Acute Qualifiers: Fatigue type: unspecified Qualified Code(s): R53.83 - Other fatigue Plan Small bowel obstruction, recurrent nature Patient does have active bowel sounds which are sluggish Not able to pass flatus yet, no bowel movement, abdominal pain has not worsened no active signs of peritonitis guarding or rigidity, tenderness to deep palpation is present in lower quadrants She was watching movie on her phone when entered the room To avoid opiate-induced constipation would use IV morphine instead of Dilaudid Appreciate general surgery recommendations, Full code N.p.o., Dr. Meza allowed to have ice chips as well NG to low intermittent suction Attestations Medical Necessity Statement*: Continue medical management Time Spent in Patient Care: 15 minutes Coding Level of Care Code Acute Aesthetics Instructor for Chg Fwd Diagnoses SBO (small bowel obstruction) K56.609 Type 2 diabetes mellitus without complication, with no history of insulin use E11.9 Shortness of breath R06.02 Cough R05.9 Generalized body aches R52 Fatigue R53.83 Fatigue type: unspecified
--- NOTE | 2021-06-24 16:12 | PC.CHAP ---
Pastoral Care Encounter/Spiritual Assessment Type of Contact [] Declined ortho rn visit [] Patient/Family/Request visit [] Outpatient visit [] Follow-up visit [] Physician referral [] Code/Alert [XX] Routine visit [] Staff referral [] Actively dying [] Patient sleeping [] Family support [] [] Out of room [] Palliative care [] [] Receiving care in room [] Pre-surgical visit [] Trauma [] Long length of stay [] ICU visit [XX] Other: spouse and daughter present in room Relational/Emotional Strength [XX] Patient feels connected with others/family/visitors/staff [] Distress [] Loneliness/isolation [] Abandonment Spirituality of Patient [XX] Person of Ale [] Attends Religious of their Ale [XX] Believes in Prayer [XX] Reads Bible or Hinduism materials [] There are Spiritual issues to be addressed Stroboscope Operator Interventions [XX] Prayer [XX] Active listening [XX] Non-anxious presence [] Spiritual/emotional support [] Crisis/trauma care [] Spiritual counseling [] Bereavement support [] Provided bereavement packet [XX] Provided Bible/devotional materials [] Provided toy/stuffed animal, coloring book to patient or family member [] Provided Communion [] Anointing/Hometown [] Salvation [XX] Completed spiritual assessment [] Other: Impact on Illness or Injury [] Angry [] Fearful [] Anxious [] Often cries [] Exhaustion [] Unable to work [] Unable to attend caodaism [] Unable to walk/stand [] Unable to read [] Unable to drive [] Unable to eat/drink [] Unable to sleep [] Unable to be with family [] Patient intubated [] Other: Summary: Pt described her health situation and stated that she is nervous that she may have to undergo surgery. We discussed that unless it's an emergency, she can discuss treatment options with her spouse and family rather than feeling pressured to make immediate decisions. Pt was overall in good spirits after visit. Prayer for healing, discernment, and for the medical team. Pt accepted a Daily Bread, as well. Time spent with patient: 20 - 25 mins
[2021-06-24] MEDS: pantoprazole 40 mg SDV IVP ×2 (16:49→22:40)
[2021-06-24] MEDS: HYDROmorphone 1 mg/mL INJ 1 mL 0.4 MG IVP ×2 (16:50→21:09)
[2021-06-24 18:14] LABS: Glucose Point of Care 95 mg/dL (70-110)
[2021-06-24] MEDS: metroNIDAZOLE IV 500 MG/100 ML PREMIX IV (18:32)
[2021-06-24 20:56] LABS: Glucose Point of Care 87 mg/dL (70-110)
[2021-06-24] MEDS: enoxaparin 40 mg/0.4 mL Syringe SUBCUT (22:40)
[2021-06-25] VITALS (8 sets, daily range): BP systolic 115–145; BP diastolic 73–87; PULSE 74–84; RESP 16–20; TEMP 36.7–37.1; O2SAT 94–97
[2021-06-25] MEDS: levofloxacin-dextrose 5 % 750 MG/150 ML PREMIX 100 MG IV (01:06)
[2021-06-25] MEDS: HYDROmorphone 1 mg/mL INJ 1 mL 0.4 MG IVP ×5 (02:38→20:18)
[2021-06-25] MEDS: ondansetron 2 mg/ML SDV 2 mL 4 MG IVP ×5 (02:38→20:19)
[2021-06-25 02:55] LABS: Glucose Point of Care 98 mg/dL (70-110)
[2021-06-25] MEDS: metroNIDAZOLE IV 500 MG/100 ML PREMIX 100 MG IV ×2 (02:57→12:06)
[2021-06-25] MEDS: sodium chlor 0.9% + KCl 20 mEq 20 MEQ/1,000 ML BAG 100 MEQ IV (02:59)
[2021-06-25 07:01] LABS: Blood Urea Nitrogen 5 mg/dL (8-23); Carbon Dioxide 16 mmol/L (22-29); Chloride 105 mmol/L (98-107); Glucose 81 mg/dL (65-115); Magnesium 1.9 mg/dL (1.7-2.3); Osmolality Calculated 278 mOsm/kg (285-295); Sodium 136 mmol/L (136-145)
[2021-06-25 07:08] LABS: Anion Gap 18.9 (5-19); Potassium 3.9 mmol/L (3.5-5.1)
[2021-06-25] MEDS: pantoprazole 40 mg SDV IVP ×2 (08:07→22:42)
--- NOTE | 2021-06-25 09:04 | P.PN_ITS ---
Subjective Subjective: Interval history: The patient says she is a little bit more comfortable today but still has not passed any flatus. She is able to tell me a little bit more about her history. She says she was on mercaptopurine for 5 or 6 years around 15 years ago in [place], but says she does not recall anybody ever diagnosing her with inflammatory bowel disease. Having said that, she has a grandchild with Crohn's disease as well as 2 daughters and another grandchild who she says have been diagnosed with ulcerative colitis. She says she was told on several occasions if she ever had to have surgery again she probably needed to be in a large facility with a lot of medical support because she almost during her last operation. Vitals/I&O/Wt Last Vital Signs Temp 98.0 F 06/25/21 08:06 Pulse 78 06/25/21 08:06 Resp 16 06/25/21 08:06 BP 127/83 06/25/21 08:06 Pulse Ox 95 06/25/21 08:06 06/24/21 06/25/21 06/25/21 22:59 06:59 14:59 Intake Total 1100 / 2500 1300 / 2500 Output Total 250 / 1200 950 / 1200 Balance 850 / 1300 350 / 1300 Physical Exam Narrative: EXAM NARRATIVE: The patient's abdomen reveals minimal scattered tenderness today. Bowel sounds actually seem more active to me. Data : 06/24/21 06:14 06/25/21 05:49 A&P Assessment and plan (1) SBO (small bowel obstruction): Still awaiting return of bowel function/resolution of small bowel obstruction. It sounds like a previous diagnosis of inflammatory bowel disease is likely. She says she has a family history of both ulcerative colitis and Crohn's disease. The patient still has not started passing flatus. She is leaning towards being transferred to a larger facility if we think surgery is something that needs to be done. I will continue following for now. Status: Acute Attestations Medical Necessity Statement*: See admitting service's notation. Coding Level of Care Code Acute Casualty Insurance Claim Adjuster for Sonya Patrick Diagnoses SBO (small bowel obstruction) K56.609
[2021-06-25 11:19] LABS: Basophils % 0.4 %; Eosinophils % 0.5 %; Hematocrit 34.6 % (37.0-47.0); Hemoglobin 12.1 g/dL (11.5-15.3); Lymphocytes # 2.1 10^3/uL (0.8-4.8); Mean Corpuscular Hemoglobin 31.5 pg (28.0-34.0); Mean Corpuscular Volume 90.1 fl (81-99); Mean Platelet Volume 8.5 fL (7.4-10.4); Monocytes # 0.6 10^3/uL (0.2-0.9); Monocytes % 7.8 %; Neutrophils # 4.62 10^3/uL (1.8-7.7); Nucleated Red Blood Cells % 0 %; Platelet Count 448 10^3/cmm (130-400); Red Blood Count 3.84 10^6/uL (4.1-5.3); Red Cell Distribution Width 11.9 % (12.1-15.1); White Blood Count 7.3 10^3/uL (4.0-10.0)
[2021-06-25 11:49] LABS: Glucose Point of Care 83 mg/dL (70-110)
--- NOTE | 2021-06-25 12:26 | P.PN_ITS ---
Subjective Subjective: Interval history: Patient was seen and examined this morning, she is stating that her abdominal feels much softer, she has not been able to pass flatus yet, no bowel movement, no active emesis, NG to low intermittent suction Bilious content obtained overnight about 300 cc in the container this morning As well regarding her concerns and anxiety related to surgery Vitals/I&O/Wt Last Vital Signs Temp 98.2 F 06/25/21 11:50 Pulse 80 06/25/21 11:50 Resp 16 06/25/21 11:50 BP 121/75 06/25/21 11:50 Pulse Ox 97 06/25/21 11:50 06/24/21 06/25/21 06/25/21 22:59 06:59 14:59 Intake Total 1100 / 1200 1300 / 2500 Output Total 250 / 250 950 / 1200 Balance 850 / 950 350 / 1300 Physical Exam Narrative: EXAM NARRATIVE: This morning patient was laying flat Supine, Saturating well on room air Abdomen is soft with sluggish bowel sounds in all quadrants, nontender no signs of rigidity guarding or peritonitis EOMI, PERRLA Nonfocal exam Malnourished and cachectic appearance Data : 06/25/21 10:58 06/25/21 05:49 A&P Assessment and plan (1) SBO (small bowel obstruction): Status: Acute Plan Recurrent small bowel obstruction continue Cipro and Flagyl, I will use D5 half- normal saline and discontinue normal saline with potassium supplemental ivf Hold aspirin, gabapentin and Imdur for now Patient is allergic to morphine and codeine stating she had anaphylactic react ion I will keep her on Dilaudid for now Appreciate general surgery recommendations Full code N.p.o. Attestations Medical Necessity Statement*: Continue medical management Time Spent in Patient Care: 15min Coding Level of Care Code Acute Academic Department Chair for [facility] Diagnoses SBO (small bowel obstruction) K56.609
[2021-06-25] MEDS: dextrose 5%-sod chloride 0.45% 1,000 ML 75 ML IV (14:59)
[2021-06-25 17:01] LABS: Glucose Point of Care 123 mg/dL (70-110)
[2021-06-25 21:14] LABS: Glucose Point of Care 108 mg/dL (70-110)
[2021-06-25] MEDS: enoxaparin 40 mg/0.4 mL Syringe SUBCUT (22:43)
[2021-06-26] VITALS (13 sets, daily range): BP systolic 104–133; BP diastolic 48–92; PULSE 71–92; RESP 16–20; TEMP 36.6–37.2; O2SAT 93–97
[2021-06-26] MEDS: levofloxacin-dextrose 5 % 750 MG/150 ML PREMIX 100 MG IV (00:19)
[2021-06-26] MEDS: HYDROmorphone 1 mg/mL INJ 1 mL 0.4 MG IVP ×5 (00:24→20:06)
[2021-06-26] MEDS: metroNIDAZOLE IV 500 MG/100 ML PREMIX 100 MG IV ×2 (03:00→12:09)
[2021-06-26] MEDS: ondansetron 2 mg/ML SDV 2 mL 4 MG IVP (03:03)
[2021-06-26] MEDS: dextrose 5%-sod chloride 0.45% 1,000 ML 75 ML IV ×2 (04:47→14:58)
[2021-06-26 05:26] LABS: Blood Urea Nitrogen 3 mg/dL (8-23); Calcium 7.4 mg/dL (8.5-10.5); Carbon Dioxide 16 mmol/L (22-29); Chloride 106 mmol/L (98-107); Glucose 90 mg/dL (65-115); Osmolality Calculated 282 mOsm/kg (285-295); Sodium 138 mmol/L (136-145)
[2021-06-26 05:32] LABS: Anion Gap 19.2 (5-19); Potassium 3.2 mmol/L (3.5-5.1)
[2021-06-26 06:45] LABS: Glucose Point of Care 125 mg/dL (70-110)
--- NOTE | 2021-06-26 07:26 | P.PN_ITS ---
Subjective Subjective: Interval history: The patient is feeling better today. She started passing some flatus last night. Vitals/I&O/Wt Last Vital Signs Temp 97.9 F 06/26/21 04:00 Pulse 83 06/26/21 05:27 Resp 20 H 06/26/21 04:00 BP 127/85 06/26/21 04:00 Pulse Ox 96 06/26/21 04:00 06/25/21 06/26/21 06/26/21 22:59 06:59 14:59 Intake Total 100 / 2350 1250 / 2350 Output Total 2000 / 3300 700 / 700 Balance 100 / -950 -750 / -950 -700 / -700 Physical Exam Narrative: EXAM NARRATIVE: Bowel sounds are present. The patient still has some scattered diffuse tenderness on exam. Data : 06/25/21 10:58 06/26/21 03:45 A&P Assessment and plan (1) SBO (small bowel obstruction): The patient has started passing a little flatus. I am going to clamp her NG tu be and see how she does. It sounds like a previous diagnosis of inflammatory bowel disease is likely. She says she has a family history of both ulcerative colitis and Crohn's disease. She is leaning towards being transferred to a larger facility if we think surgery is something that becomes necessary. I will continue following for now. Status: Acute Attestations Medical Necessity Statement*: See admitting service's notation. Coding Level of Care Code Acute Willow Machine Operator for [facility] Diagnoses SBO (small bowel obstruction) K56.609
[2021-06-26] MEDS: pantoprazole 40 mg SDV IVP ×2 (08:04→23:20)
[2021-06-26] MEDS: metoprolol succinate ER (24 HR) 25 mg Tablet 12.5 MG PO ×2 (08:04→16:54)
[2021-06-26] MEDS: lidocaine 1% 5 ML in potassium chloride premix 100 ML 25 ML IV (08:29)
[2021-06-26 12:19] LABS: Glucose Point of Care 139 mg/dL (70-110)
--- NOTE | 2021-06-26 12:57 | PM.PN ---
Subjective Subjective: Interval history: Patient is very happy with the progress, she is able to pass flatus, had 1 small bowel movement, abdomen is much softer, NG was clamped, no active nausea or vomiting, will plan to remove NG today if she is able to tolerate clear liquid, will update Dr. Meza before moving NG tube Vitals/I&O/Wt Last Vital Signs Temp 98.0 F 06/26/21 08:00 Pulse 73 06/26/21 08:00 Resp 16 06/26/21 08:05 BP 120/77 06/26/21 08:00 Pulse Ox 97 06/26/21 08:05 06/25/21 06/26/21 06/26/21 22:59 06:59 14:59 Intake Total 100 / 1100 1250 / 2350 Output Total 2000 / 2600 700 / 700 Balance 100 / 500 -750 / -250 -700 / -700 Physical Exam Narrative: EXAM NARRATIVE: Patient is very happy today in good spirits S1, S2 Dehydrated Abdomen soft no signs of peritonitis, active bowel sounds Nonfocal neuro exam Saturating well on room air Data : 06/25/21 10:58 06/26/21 03:45 A&P Assessment and plan (1) SBO (small bowel obstruction): Status: Acute (2) Hypokalemia: Status: Acute Plan SBO Recurrent small bowel obstruction Did well with conservative management Passing flatus, had 1 small bowel movement this morning NG clamped, plan to remove later today and advance her diet to clear liquid if clinically she stays stable, might be able to go home in next 24 hours Hypokalemia: Repleted Full code DVT prophylaxis on board Hypocalcemia: We will give 1 g calcium gluconate Euglycemic Attestations Medical Necessity Statement*: Discharge in next 24 hours Time Spent in Patient Care: 15mins Coding Level of Care Code Acute Superintendent Car Construction for g Fwd Diagnoses SBO (small bowel obstruction) K56.609 Hypokalemia E87.6
[2021-06-26] MEDS: calcium gluconate 0.9% NaCL 1 GM/50 ML PREMIX IV (14:58)
[2021-06-26 17:24] LABS: Glucose Point of Care 154 mg/dL (70-110)
[2021-06-26] MEDS: insulin lispro 100 unit/1 mL SUBCUT (18:17)
[2021-06-26 21:00] LABS: Glucose Point of Care 136 mg/dL (70-110)
[2021-06-26] MEDS: enoxaparin 40 mg/0.4 mL Syringe SUBCUT (22:53)
[2021-06-27] VITALS: BP 112/76; PULSE 76; RESP 18; O2SAT 95
[2021-06-27 02:40] VITALS: RESP 18
[2021-06-27] MEDS: HYDROmorphone 1 mg/mL INJ 1 mL 0.4 MG IVP (02:40)
[2021-06-27 03:35] VITALS: BP 107/67; PULSE 71; RESP 17; TEMP 36.7; O2SAT 95
[2021-06-27 05:11] LABS: Blood Urea Nitrogen 4 mg/dL (8-23); Calcium 9.2 mg/dL (8.5-10.5); Carbon Dioxide 19 mmol/L (22-29); Chloride 109 mmol/L (98-107); Glomerular Filtration Rate 161.7 mL/min (90-130); Glucose 161 mg/dL (65-115); Magnesium 1.9 mg/dL (1.7-2.3); Osmolality Calculated 290 mOsm/kg (285-295); Sodium 140 mmol/L (136-145)
[2021-06-27 05:12] LABS: Anion Gap 15.3 (5-19); Potassium 3.3 mmol/L (3.5-5.1)
[2021-06-27 06:00] VITALS: PULSE 90
[2021-06-27 06:36] LABS: Glucose Point of Care 153 mg/dL (70-110)
--- NOTE | 2021-06-27 07:24 | P.PN_ITS ---
Subjective Subjective: Interval history: The patient had her nasogastric tube removed yesterday and has been tolerating clear liquid since. She continues the pass flatus. She says she would like try some cream of wheat or something similar for breakfast. Vitals/I&O/Wt Last Vital Signs Temp 98.0 F 06/27/21 03:35 Pulse 90 06/27/21 06:00 Resp 17 06/27/21 03:35 BP 107/67 06/27/21 03:35 Pulse Ox 95 06/27/21 03:35 06/26/21 06/27/21 06/27/21 22:59 06:59 14:59 Intake Total 290 / 1977.75 480 / 1977.75 Output Total 500 / 2440 1240 / 2440 Balance -210 / -461.25 -760 / -461.25 Physical Exam Narrative: EXAM NARRATIVE: Minimal scattered tenderness. Data : 06/25/21 10:58 06/27/21 04:03 A&P Assessment and plan (1) SBO (small bowel obstruction): The patient's bowel obstruction seems to have cleared. Full liquid diet. I suspect the patient can be discharged later today if she continues to do well. Status: Acute Attestations Medical Necessity Statement*: See admitting service's notation. Coding Level of Care Code Acute Pick Up Truck Driver for pina Patrick Diagnoses SBO (small bowel obstruction) K56.609
[2021-06-27 07:41] VITALS: BP 101/66; PULSE 75; RESP 18; TEMP 36.8; O2SAT 97
[2021-06-27] MEDS: metoprolol succinate ER (24 HR) 25 mg Tablet 12.5 MG PO (08:37)
[2021-06-27] MEDS: insulin lispro 100 unit/1 mL SUBCUT (08:37)
[2021-06-27] MEDS: pantoprazole 40 mg SDV IVP (08:37)
--- NOTE | 2021-06-27 09:04 | PM.DCS ---
Discharge Providers Date of Admission: 06/21/21 18:41 Date of Discharge: June 27, 2021 Attending Provider at Admission: Og Garcia MD Attending Provider at Discharge: Agus Arciniega MD Primary Care Provider: Frank Smith DO Diagnoses at Discharge Discharge Diagnosis (1) SBO (small bowel obstruction): Status: Acute Reason for Visit Reason for Visit: abd pain Hospital Course Hospital Course Admitting note by Dr. Borges Yessi Schulte is a 61 year old female with a past medical history of hypertension, multiple abdominal surgeries for multiple ulcers she tells me that they had to take her colon out and had had multiple surgeries for this, depression, hypertension, CAD, who presents to [facility] due to 1 day history of nausea, vomiting, abdominal pain, decreased stooling.? Patient tells that she has a recurrent history of small bowel tractions, due to multiple abdominal surgeries due to ulcers she tells me, she tells me that she had to have her colon out, she had multiple surgeries for this up in [place].? She tells me that yesterday suddenly it was like a switch that turned on she could not stool anymore, she has significant nausea, vomiting, decreased oral intake, decreased appetite, abdominal distention, abdominal pain.? He denies any fevers, chills, no nausea, no vomiting.? Status post cholecystectomy.? Still has her appendix.? In the emergency room she was found to have a small bowel obstruction, distal, with transition point in the right lower abdomen, NG tube was placed, hospitalist team was called for admission.? Denies any history of COVID-19, received both Covid vaccinations Hospital course Patient was admitted for management & evaluation of recurrent small bowel obstruction on 06/21/2021 She was managed conservatively with placement of NG tube, NG tube was removed on 06/26 when she started passing gas, her diet was advanced to clear liquids, she did not experience recurrence of nausea or vomiting. She started having bowel movement, she was able to pass flatus. Abdominal tenderness improved. She will be discharged on 04/26/2022 Please note she was kept on empirical IV antibiotics Levaquin and metronidazole however no active source of infection identified. She will not need any antibiotics at the time of discharge. She will stay on full liquid diet, no solid food at all to avoid recurrent bowel obstruction. Physical Exam Narrative: EXAM NARRATIVE: Patient is very happy S1, S2 Dehydrated Abdomen soft no signs of peritonitis, active bowel sounds Nonfocal neuro exam Saturating well on room air Discharge Data Studies Completed and Pending Completed Studies During Hospitalization Category Date Time Status CT abdomen pelvis w con* [id number] Stat Cat Scan 06/21/21 11:22 Completed XR KUB portable [id number] Routine Exams 06/23/21 06:30 Completed XR abdomen 1V* [id number] Stat Exams 06/21/21 20:10 Completed XR acute abdomen series [id number] Stat Exams 06/21/21 09:49 Completed Radiology Impressions Chest/Abdomen X-ray 06/21/21 09:49 IMPRESSION: 1. Fluid distended small bowel and colon with air-fluid levels. Early small bowel obstruction versus diffuse ileus. 2. No free air. 3. Prior cholecystectomy. Abdomen/Pelvis CT 06/21/21 11:22 IMPRESSION: 1. Mid to distal small bowel obstruction, with transition point likely in the lower right abdomen. This could relate to adhesions from multiple prior small bowel resections. 2. Severe fluid distension of the stomach and duodenum. Gastric tube placement should be considered. Abdomen X-Ray 06/21/21 20:10 IMPRESSION: Gastric tube tip in the proximal stomach. KUB X-Ray 06/23/21 06:30 IMPRESSION: The tip of the nasogastric tube projects on the stomach. Laboratory Results WBC 7.3 10^3/uL (4.0-10.0) 06/25/21 10:58 RBC 3.84 10^6/uL (4.1-5.3) L 06/25/21 10:58 Hgb 12.1 g/dL (11.5-15.3) 06/25/21 10:58 Hct 34.6 % (37.0-47.0) L 06/25/21 10:58 MCV 90.1 fl (81-99) D 06/25/21 10:58 MCH 31.5 pg (28.0-34.0) 06/25/21 10:58 MCHC 35.0 g/dL (30.0-36.0) D 06/25/21 10:58 RDW 11.9 % (12.1-15.1) L 06/25/21 10:58 Plt Count 448 10^3/cmm (130-400) H 06/25/21 10:58 MPV 8.5 fL (7.4-10.4) 06/25/21 10:58 Neut % (Auto) 63.0 % 06/25/21 10:58 Lymph % (Auto) 28.0 % 06/25/21 10:58 Cook % (Auto) 7.8 % 06/25/21 10:58 Eos % (Auto) 0.5 % 06/25/21 10:58 Baso % (Auto) 0.4 % 06/25/21 10:58 Neut # (Auto) 4.62 10^3/uL (1.8-7.7) 06/25/21 10:58 Lymph # (Auto) 2.1 10^3/uL (0.8-4.8) 06/25/21 10:58 Cook # (Auto) 0.6 10^3/uL (0.2-0.9) 06/25/21 10:58 Eos # (Auto) 0.0 10^3/uL (0.0-0.8) 06/25/21 10:58 Baso # (Auto) 0.0 10^3/uL (0.0-0.1) 06/25/21 10:58 Nucleated RBC % (auto) 0 % 06/25/21 10:58 Nucleated RBCs # 0.0 /100WBC 06/25/21 10:58 PT 13.90 SECONDS (12.1-14.9) 06/22/21 06:05 INR 1.04 (0.8-1.2) 06/22/21 06:05 Sodium 140 mmol/L (136-145) 06/27/21 04:03 Potassium 3.3 mmol/L (3.5-5.1) L 06/27/21 04:03 Chloride 109 mmol/L (98-107) H 06/27/21 04:03 Carbon Dioxide 19 mmol/L (22-29) L 06/27/21 04:03 Anion Gap 15.3 (5-19) 06/27/21 04:03 BUN 4 mg/dL (8-23) L 06/27/21 04:03 Creatinine 0.4 mg/dL (0.5-0.9) L 06/27/21 04:03 GFR Calculation 161.7 mL/min (90-130) H 06/27/21 04:03 Glucose 161 mg/dL (65-115) H 06/27/21 04:03 POC Glucose 153 mg/dL (70-110) H 06/27/21 06:20 Estimat Average Glucose 126 06/21/21 10:40 Hemoglobin A1c 6.0 % (4.0-6.0) 06/21/21 10:40 Calculated Osmolality 290 mOsm/kg (285-295) 06/27/21 04:03 Lactic Acid 1.5 mmol/L (0.5-2.2) 06/21/21 11:35 Lactate 1.4 mmol/L (0.5-2.2) 06/21/21 18:42 Calcium 9.2 mg/dL (8.5-10.5) 06/27/21 04:03 Phosphorus 2.6 mg/dL (2.5-4.5) 06/24/21 06:14 Magnesium 1.9 mg/dL (1.7-2.3) 06/27/21 04:03 Total Bilirubin 0.4 mg/dL (0.15-1.2) 06/24/21 06:14 AST 24 U/L (0-32) 06/24/21 06:14 ALT 27 U/L (0-33) 06/24/21 06:14 Alkaline Phosphatase 54 IU/L (35-105) 06/24/21 06:14 C-Reactive Protein 0.6 mg/L (0.0-4.9) 06/21/21 10:40 Total Protein 5.7 g/dL (6.6-8.7) L 06/24/21 06:14 Albumin 3.6 g/dL (3.5-5.2) 06/24/21 06:14 Globulin 2.1 g/dL (1.3-4.6) 06/24/21 06:14 Lipase 15 U/L (13-60) 06/21/21 10:40 Procalcitonin 0.10 ng/mL (0-0.5) 06/21/21 10:40 TSH 1.56 uIU/mL (0.27-4.20) 06/21/21 18:42 Urine Color Alessandra (Yellow) 06/21/21 18:27 Urine Appearance Clear (CLEAR) 06/21/21 18:27 Urine pH 5 (5-7) 06/21/21 18:27 Ur Specific [place] 1.010 (1.005-1.030) 06/21/21 18:27 Urine Protein Neg (Negative) 06/21/21 18:27 Urine Glucose (UA) Norm (Normal) 06/21/21 18:27 Urine Ketones Negative (Negative) 06/21/21 18:27 Urine Blood Neg (Negative) 06/21/21 18: Urine Nitrate Negative (Negative) 06/21/21 18:27 Urine Bilirubin 1+ (Negative) H 06/21/21 18:27 Urine Urobilinogen 1 mg/dL (Negative) H 06/21/21 18:27 Ur Leukocyte Esterase Negative (Negative) 06/21/21 18: Vitals Last Vital Signs Temp 98.3 F 06/27/21 07:41 Pulse 75 06/27/21 07:41 Resp 18 06/27/21 07:41 BP 101/66 06/27/21 07:41 Pulse Ox 97 06/27/21 07:41 Discharge Plan Discharge Patient Disposition: Home Condition: Stable Prescriptions: New lactulose 10 gram/15 mL solution 10 g PO DAILY PRN (Reason: constipation) Qty: 946 1RF Continued (DME) crutch Misc See Rx Instructions .ROUTE .MEDSUPPLY Qty: 2 0RF Rx Instructions: As directed (DME) cam boot See Rx Instructions .Route .MEDSUPPLY Qty: 1 0RF Rx Instructions: As directed nitroglycerin [Nitrostat] 0.4 mg tablet, sublingual 0.4 mg SUBLINGUAL Q5M PRN (Reason: Chest Pain) Qty: 20 2RF (DME) bone stimulator See Rx Instructions .Route .MEDSUPPLY Qty: 1 0RF Rx Instructions: As directed (DME) ASO on the right See Rx Instructions .Route .MEDSUPPLY Qty: 1 0RF Rx Instructions: As directed (DME) Sole Supports See Rx Instructions .Route .MEDSUPPLY Qty: 1 0RF Rx Instructions: As directed metoprolol succinate 25 mg tablet extended release 24 hr 12.5 mg PO BID Qty: 90 1RF isosorbide mononitrate 30 mg tablet extended release 24 hr 30 mg PO BEDTIME Qty: 30 2RF venlafaxine 75 mg capsule,extended release 24hr 75 mg PO BEDTIME Qty: 30 2RF diphenhydramine HCl [Benadryl] 25 mg Capsule 25 mg PO PRN 0RF ProAir HFA 90 mcg/actuation Hfa Aerosol Inhaler 2 puff INHALATION QID PRN (Reason: Shortness Of Breath) 0RF Vitamin C 500 mg Tablet 500 mg PO DAILY 0RF Vitamin B-12 1 tab PO DAILY 0RF Vitamin D3 1 cap PO DAILY 0RF glipizide 10 mg tablet extended release 24hr 10 mg PO QAM 0RF aspirin 81 mg tablet,delayed release (DR/EC) 81 mg PO BEDTIME 0RF Rx Instructions: PT STATES PUT THIS MEDICATION ON HOLD A WEEK AGO gabapentin 300 mg capsule 300 mg PO Q8H 0RF Discharge Orders: Discharge Order (Routine); Ordered 06/27/21 Ordered By: Agus Arciniega Referrals: Frank Smith DO [Primary Care Provider] - 07/04/21 10:30 am Discharge Diet: Full LIquid Discharge Activity: Increase activity as tolerated Patient Instructions: Bowel Obstruction, Lactulose (By mouth), Hypokalemia, Opioid Safety Discharge Attestations Time Spent in Discharge Care*: less than 30 min Quality Metrics Clinical Quality Measures [ No reported AMI, CVA or VTE this stay] Coding Level of Care Code Acute g [facility] note Diagnoses SBO (small bowel obstruction) K56.609
== END 2021-06-27 10:30 | disposition home or self-care (01) | DRG 390 ==
LOC: ER 20:38 → ER IP 20:54 → MEDSURG 06-22 16:17
PROVIDERS: Family Medicine; Surgery; Admitting Provider Family Medicine; Emergency Provider Emergency Medicine; PCP Family Medicine; Visit Provider Internal Medicine
DX: K56.609 Unspecified intestinal obstruction, unspecified as to partial versus complete obstruction (principal); F17.200 Nicotine dependence, unspecified, uncomplicated; I10 Essential (primary) hypertension; E11.9 Type 2 diabetes mellitus without complications; Z87.19 Personal history of other diseases of the digestive system; E87.6 Hypokalemia; Z87.11 Personal history of peptic ulcer disease; F32.A Depression, unspecified; I25.10 Atherosclerotic heart disease of native coronary artery without angina pectoris
CPT/HCPCS: 36410; 36415; 36416; 74018; 74021; 74022; 74177; 76942; 80048; 80053; 81003; 82962; 83036; 83605; 83690; 83735; 84100; 84145; 84443; 85025; 85610; 86140; 96361; 96372; 96374; 96375; 99285; C9113; J0610; J1170; J1650; J1815; J1956; J2060; J2405; J3480; J7030; J7799; Q9967; S0030

== ENCOUNTER → 2021-07-04 11:19 | Outpatient (BNVA) | payer BC, SELFPAY | PROVIDERS: PCP Family Medicine; Visit Provider Family Medicine | DX: R30.0 Dysuria (principal); R39.89 Other symptoms and signs involving the genitourinary system | CPT/HCPCS: 81000 ==

== ENCOUNTER → 2022-03-05 11:16 | Outpatient (BNVA) | payer BC, SELFPAY | PROVIDERS: PCP Family Medicine; Visit Provider Family Medicine | DX: N63.10 Unspecified lump in the right breast, unspecified quadrant (principal); N63.20 Unspecified lump in the left breast, unspecified quadrant; Z80.3 Family history of malignant neoplasm of breast; G63 Polyneuropathy in diseases classified elsewhere; E11.9 Type 2 diabetes mellitus without complications; E55.9 Vitamin D deficiency, unspecified | CPT/HCPCS: 80053; 80061; 82652; 83036; 84439; 84443; 85025 ==

== ENCOUNTER 2022-04-23 07:43 | Outpatient (CLI) | payer BC, SELFPAY ==
--- NOTE | 2022-04-23 07:51 | MM_ITS ---
WS: [id number] DIAGNOSTIC BILATERAL DIGITAL BREAST TOMOSYNTHESIS MAMMOGRAPHY WITH CAD Bilateral breast ultrasound, limited HISTORY: Breast lumps, tenderness COMPARISON: 01/28/2015 TECHNIQUE: Bilateral craniocaudad, mediolateral oblique, and mediolateral views are submitted with to mosynthesis and SM. Spot compression LEFT CC and MLO. Computer aided detection utilized. Breast composition: There are scattered areas of fibroglandular density. Multiple palpable markers ar e placed over the breast. No underlying mass or distortion identified. Very similar appearance to the breast as compared to 2015. Benign coarse calcifications in each breast. Bilateral breast ultrasound, limited. RIGHT breast: Ultrasound is directed at 9 and 2:00 in the areas of palpable concern. No mass or disto rtion. LEFT breast: Ultrasound is directed at 11, 12, 6 and 9:00 in the areas of concern. No abnormalities a re identified. MM/[place] [id number] IMPRESSION: BI-RADS: 2-Benign FOLLOW UP: 1 Year Follow-up
== END 2022-04-23 07:44 | disposition home or self-care (01) ==
PROVIDERS: PCP Family Medicine; Visit Provider Family Medicine
DX: N63.10 Unspecified lump in the right breast, unspecified quadrant (principal); N63.20 Unspecified lump in the left breast, unspecified quadrant; N64.4 Mastodynia
CPT/HCPCS: 76642; 77062; G0279

== ENCOUNTER 2022-06-14 09:54 | Inpatient (IN) | payer BC, SELFPAY ==
[2022-06-14] VITALS (10 sets, daily range): BP systolic 108–146; BP diastolic 63–89; PULSE 69–88; RESP 16–24; TEMP 36.3–36.9; O2SAT 93–99; BMI 22.3
--- NOTE | 2022-06-14 10:06 | XRR_ITS ---
PROCEDURE INFORMATION: Exam: XR Chest Exam date and time: 06/14/2022 10:15 AM Age: 61 years old Clinical indication: Other: Generalized pain. ; Additional info: Chest pain TECHNIQUE: Imaging protocol: Radiologic exam of the chest. Views: 1 view. COMPARISON: CR XR chest 1V [id number] 06/05/2021 11:41 AM FINDINGS: Tubes, catheters and devices: Surgical clips overlying the lower mediastinum in the region of the gastroesophageal junction. Lungs: The lung parenchyma is clear. Pleural spaces: No pneumothorax. No pleural effusion. Heart/Mediastinum: The cardiomediastinal silhouette is within normal limits. Bones/joints: Cervical spinal fixation hardware noted. Post vertebroplasty changes noted in the lower thoracic spine. XR/XR chest 1V portable [id number] IMPRESSION: No acute cardiopulmonary abnormality identified.
--- NOTE | 2022-06-14 10:06 | ECG_ITS ---
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 Measurements Intervals [place] Rate: 79 P: 254 DC: 104 QRS: 60 QRSD: 102 T: 51 QT: 388 QTc: 446 Interpretive Statements SINUS RHYHTM LOW QRS VOLTAGE IN PRECORDIAL LEADS [QRS DEFLECTION < 1.0 mV IN CHEST LEADS] Compared to ECG 06/05/2021 14:41:30 Junctional rhythm now present Low QRS voltage now present Electronically Signed On 06-14-2022 14:42:28 [employer] by Tanvir Thrasher M.D. [email or web address]
[2022-06-14 10:52] LABS: Basophils % 0.3 %; Eosinophils # 0.1 10^3/uL (0.0-0.8); Eosinophils % 1.2 %; Hematocrit 40.1 % (37.0-47.0); Hemoglobin 13.4 g/dL (11.5-15.3); Lymphocytes # 2.7 10^3/uL (0.8-4.8); Lymphocytes % 27.6 %; Mean Corpuscular HGB Conc 33.4 g/dL (30.0-36.0); Mean Corpuscular Hemoglobin 30.9 pg (28.0-34.0); Mean Corpuscular Volume 92.6 fl (81-99); Mean Platelet Volume 8.4 fL (7.4-10.4); Monocytes # 0.6 10^3/uL (0.2-0.9); Monocytes % 6.4 %; Neutrophils # 6.36 10^3/uL (1.8-7.7); Neutrophils % 64.3 %; Nucleated Red Blood Cells % 0 %; Platelet Count 456 10^3/cmm (130-400); Red Blood Count 4.33 10^6/uL (4.1-5.3); Red Cell Distribution Width 12.2 % (12.1-15.1); White Blood Count 9.9 10^3/uL (4.0-10.0)
--- NOTE | 2022-06-14 11:06 | W.ED.CHESTPA ---
Documented by User: Lesaevon Galeano, TUB ATTENDANT-C 06/20/22 17:38 HPI - Chest Pain General: Chief Complaint: Chest Pain Stated Complaint: Chest pains Time Seen by Provider: 06/14/22 10:06 History of Present Illness: Patient is in today for chest pain. She reports that she went to her doctor this morning because she has been having chest pain for approximately a week off and on. She reports that she woke up this morning with chest pressure radiating to her right arm and up the right side of her neck. She reports it is associated with shortness of breath. She has had a heart attack a couple of years ago. Patient reports that she was seen about 6 months ago for chest pain and was referred for an outpatient stress test but has still been waiting to have that scheduled. She has been advised to stop her aspirin by her primary care provider but she did take nitroglycerin at the clinic today and that brought her pain down from a 6 out of 10 to a 5 out of 10. She denies any fever, chills, nausea, vomiting. She does report that she gets much more anxious when she is at the hospital with pain Associated symptoms: Reports dyspnea; Deny abdominal pain, fever(s), nausea, palpitations or vomiting Review of Systems Const: Denies: fever(s) or chills Card: Reports: chest pain; Denies: palpitations or irregular heart rhythm Resp: Reports: dyspnea; Denies: productive cough, non-productive cough or pain on inspiration GI: Denies: abdominal pain, nausea or vomiting Neuro: Denies: headache(s), numbness in extremities or weakness in extremities PFSH ED PFSH: Medical History Cough Depression Essential hypertension Fatigue Generalized body aches HTN (hypertension) with goal to be determined Myocardial infarction acute 09/2019 Neutrophilic leukocytosis Pancreatitis SBO (small bowel obstruction) Shortness of breath Type 2 diabetes mellitus without complication, with no history of insulin use Surgical History H/O exploratory laparotomy Multiple bowel resections History of 3 sections History of appendectomy History of incisional hernia repair S/P cardiac cath S/P cholecystectomy S/P DONNA-BSO Status post colonoscopy Family History Mother Cancer, Onset Age: 60 Double mastectomy Sister Cancer, Onset Age: 53 double mastectomy Sister Cancer, Onset Age: 52 partial mastectomy Social History Smoking and tobacco status: current every day smoker cigarettes [ Other cigarette details: On and off ] Alcohol intake: current Alcohol intake frequency: holidays/special occasions only Female Reproductive History: Spontaneous abortions: No Physical Exam Const: COMMON NORMALS: patient oriented x3 GENERAL APPEARANCE: cooperative and anxious Neck/C-Spine: COMMON NORMALS: no JVD Resp: COMMON NORMALS: No retractions, No use of accessory muscles and clear to auscultation bilaterally EFFORT & INSPECTION: Yes tachypneic AUSCULTATION: clear to auscultation bilaterally Cardio: COMMON NORMALS: no JVD, regular rate, regular rhythm, S1 normal heart sound present and S2 normal heart sound present RATE: regular rate RHYTHM: regular rhythm HEART SOUNDS: S1 normal heart sound present and S2 normal heart sound present GI: COMMON NORMALS: Normal to inspection, nondistended, normoactive bowel sounds present, Soft to palpation and non-tender PALPATION: Yes Soft to palpation : COMMON NORMALS: Yes no CVA tenderness BLADDER/KIDNEY EXAM: Yes no CVA tenderness Back/Pelvis: COMMON NORMALS: no CVA tenderness Neuro: COMMON NORMALS: patient oriented x3, moves all extremities and no focal motor deficits Psych: MOOD & AFFECT: Yes anxious Course ED course: I discussed this patient with Dr. Bae and showed him the EKG which shows junctional rhythm no acute ST changes. I advised Dr. Trimble the patient had 1 nitroglycerin tab at the primary care provider's office. Chest pain went from a 6 on a 0-to-10 scale to a 5 on a 0-to-[address] Trimble said this patient is well-known with a chronic history of chest pain and has had numerous work-ups. Work-up is ordered Dr. Bae agrees with current work-up. We will continue to monitor patient. Patient has inverted T waves from old EKG and delta troponin is 3.88. Risk factors include hypertension, diabetes, smoking. No recent stress test that we can see in the chart. Dr. Bae advised patient will need to be admitted for further work-up. Rocephin started for patient urinary tract infection. Patient has 0 urinary symptoms at this time but UA is positive for bacteria and nitrites. Dr. Bae assuming care of patient Vital Signs: Vital signs: Vital Signs Temperature 99.0 F 06/16/22 07:07 Pulse Rate 86 06/16/22 08:40 Respiratory Rate 16 06/16/22 08:00 Blood Pressure 120/76 06/16/22 08:40 Pulse Oximetry 96 06/16/22 08:00 Oxygen Delivery Me thod 06/16/22 08:00 MDM - Chest Pain Lab Data 06/14/22 10:44 06/14/22 10:44 Radiology Impressions Chest X-Ray 06/14/22 10:06 IMPRESSION: No acute cardiopulmonary abnormality identified. Laboratory Results WBC 8.4 10^3/uL (4.0-10.0) 06/15/22 03:28 RBC 3.92 10^6/uL (4.1-5.3) L 06/15/22 03:28 Hgb 12.3 g/dL (11.5-15.3) 06/15/22 03:28 Hct 37.4 % (37.0-47.0) 06/15/22 03:28 MCV 95.4 fl (81-99) 06/15/22 03:28 MCH 31.4 pg (28.0-34.0) 06/15/22 03:28 MCHC 32.9 g/dL (30.0-36.0) 06/15/22 03:28 RDW 12.3 % (12.1-15.1) 06/15/22 03:28 Plt Count 391 10^3/cmm (130-400) 06/15/22 03:28 MPV 8.9 fL (7.4-10.4) 06/15/22 03:28 Neut % (Auto) 47.6 % 06/15/22 03:28 Lymph % (Auto) 42.3 % 06/15/22 03:28 [place] % (Auto) 6.7 % 06/15/22 03:28 Eos % (Auto) 2.6 % 06/15/22 03:28 Baso % (Auto) 0.4 % 06/15/22 03:28 Neut # (Auto) 3.99 10^3/uL (1.8-7.7) 06/15/22 03:28 Lymph # (Auto) 3.5 10^3/uL (0.8-4.8) 06/15/22 03:28 [place] # (Auto) 0.6 10^3/uL (0.2-0.9) 06/15/22 03:28 Eos # (Auto) 0.2 10^3/uL (0.0-0.8) 06/15/22 03:28 Baso # (Auto) 0.0 10^3/uL (0.0-0.1) 06/15/22 03:28 Nucleated RBC % (auto) 0 % 06/15/22 03:28 Nucleated RBCs # 0.0 /100WBC 06/15/22 03:28 PT 13.80 SECONDS (12.1-14.9) 06/14/22 10:44 INR 1.03 (0.8-1.2) 06/14/22 10:44 APTT 29.1 SECONDS (23.9-36.7) 06/14/22 10:44 Sodium 141 mmol/L (136-145) 06/15/22 03:28 Potassium 4.3 mmol/L (3.5-5.1) 06/15/22 03:28 Chloride 106 mmol/L (98-107) 06/15/22 03:28 Carbon Dioxide 21 mmol/L (22-29) L 06/15/22 03:28 Anion Gap 18.3 (5-19) 06/15/22 03:28 BUN 10 mg/dL (8-23) 06/15/22 03:28 Creatinine 0.5 mg/dL (0.5-0.9) 06/15/22 03:28 GFR Calculation 125.0 mL/min (90-130) 06/15/22 03:28 Glucose 142 mg/dL (65-115) H 06/15/22 03:28 POC Glucose 191 mg/dL (70-110) H 06/15/22 11:10 Calculated Osmolality 293 mOsm/kg (285-295) 06/15/22 03:28 Calcium 9.0 mg/dL (8.5-10.5) 06/15/22 03:28 Total Bilirubin 0.6 mg/dL (0.15-1.2) 06/14/22 10:44 AST 25 U/L (0-32) 06/14/22 10:44 ALT 35 U/L (0-33) H 06/14/22 10:44 Alkaline Phosphatase 83 U/L (35-105) 06/14/22 10:44 Troponin T Baseline 9 ng/L (0-10) 06/14/22 10:44 Troponin T 120 Minute 12.88 ng/L (0-10) H 06/14/22 12:50 Delta Troponin T 3.88 ABS# (0-10) 06/14/22 12:50 Troponin T Hi Sens 6Hr 10.50 ng/L (0-10) H 06/14/22 16:19 Troponin T Hi Sens 6Hr Delta 1.50 ng/L (0-12) 06/14/22 16:19 Total Protein 7.8 g/dL (6.6-8.7) 06/14/22 10:44 Albumin 4.0 g/dL (3.5-5.2) 06/14/22 10:44 Globulin 3.8 g/dL (1.3-4.6) 06/14/22 10:44 Urine Color Yellow (Yellow) 06/14/22 11:13 Urine Appearance Hazy (CLEAR) A 06/14/22 11:13 Urine pH 6 (5-7) 06/14/22 11:13 Ur Specific [place] 1.020 (1.005-1.030) 06/14/22 11:13 Urine Protein Neg (Negative) 06/14/22 11:13 Urine Glucose (UA) Norm (Normal) 06/14/22 11:13 Urine Ketones Negative (Negative) 06/14/22 11:13 Urine Blood Neg (Negative) 06/14/22 11:13 Urine Nitrate Positive (Negative) H 06/14/22 11:13 Urine Bilirubin Neg (Negative) 06/14/22 11:13 Urine Urobilinogen 1 mg/dL (Negative) H 06/14/22 11:13 Ur Leukocyte Esterase Negative (Negative) 06/14/22 11:13 Urine RBC Rare /hpf (0-2) 06/14/22 11:13 Urine WBC 5-10 /hpf (0-5) H 06/14/22 11:13 Ur Squamous Epith Cells 0-4 /hpf (0-5) H 06/14/22 11:13 Amorphous Sediment Not Reportable 06/14/22 11:13 Urine Bacteria 4+ /hpf (NONE) H 06/14/22 11:13 Discharge Plan Discharge Patient Disposition: Placed in Observation Admit Provider: Óscar Lozano Clinical Impression: Chest pain Condition: Stable Discharge Orders: Discharge Order (Routine); Ordered 06/16/22 Ordered By: Óscar Lozano Sign Out Sign Out Data: Patient Sign Out occurred on 06/14/22 at 15:30. Patient's care was discussed, and care was transferred from to Uriel Bae DO. Coding Level of Care Code ED Combination Saw Operator for Chg Fwd Exam Comprehensive Documented by User: Óscar Lozano MD 06/16/22 19:13 HPI - Chest Pain General: Chief Complaint: Chest Pain Stated Complaint: Chest pains Time Seen by Provider: 06/14/22 10:06 [facility] ED PFSH: Medical History Cough Depression Essential hypertension Fatigue Generalized body aches HTN (hypertension) with goal to be determined Myocardial infarction acute 09/2019 Neutrophilic leukocytosis Pancreatitis SBO (small bowel obstruction) Shortness of breath Type 2 diabetes mellitus without complication, with no history of insulin use Surgical History H/O exploratory laparotomy Multiple bowel resections History of 3 sections History of appendectomy History of incisional hernia repair S/P cardiac cath S/P cholecystectomy S/P DONNA-BSO Status post colonoscopy Family History Mother Cancer, Onset Age: 60 Double mastectomy Sister Cancer, Onset Age: 53 double mastectomy Sister Cancer, Onset Age: 52 partial mastectomy Social History Smoking and tobacco status: current every day smoker cigarettes [ Other cigarette details: On and off ] Alcohol intake: current Alcohol intake frequency: holidays/special occasions only Course Vital Signs: Vital signs: Vital Signs Temperature 99.0 F 06/16/22 07:07 Pulse Rate 86 06/16/22 08:40 Respiratory Rate 16 06/16/22 08:00 Blood Pressure 120/76 06/16/22 08:40 Pulse Oximetry 96 06/16/22 08:00 Oxygen Delivery Me thod 06/16/22 08:00 MDM - Chest Pain Medical Decision Making Dr Lozano added inadvertantly to list of signers in the note after note opened accidentally in Edit mode. Please disregard. Lab Data 06/14/22 10:44 06/14/22 10:44 Radiology Impressions Chest X-Ray 06/14/22 10:06 IMPRESSION: No acute cardiopulmonary abnormality identified. Laboratory Results WBC 8.4 10^3/uL (4.0-10.0) 06/15/22 03:28 RBC 3.92 10^6/uL (4.1-5.3) L 06/15/22 03:28 Hgb 12.3 g/dL (11.5-15.3) 06/15/22 03:28 Hct 37.4 % (37.0-47.0) 06/15/22 03:28 MCV 95.4 fl (81-99) 06/15/22 03:28 MCH 31.4 pg (28.0-34.0) 06/15/22 03:28 MCHC 32.9 g/dL (30.0-36.0) 06/15/22 03:28 RDW 12.3 % (12.1-15.1) 06/15/22 03:28 Plt Count 391 10^3/cmm (130-400) 06/15/22 03:28 MPV 8.9 fL (7.4-10.4) 06/15/22 03:28 Neut % (Auto) 47.6 % 06/15/22 03:28 Lymph % (Auto) 42.3 % 06/15/22 03:28 [place] % (Auto) 6.7 % 06/15/22 03:28 Eos % (Auto) 2.6 % 06/15/22 03:28 Baso % (Auto) 0.4 % 06/15/22 03:28 Neut # (Auto) 3.99 10^3/uL (1.8-7.7) 06/15/22 03:28 Lymph # (Auto) 3.5 10^3/uL (0.8-4.8) 06/15/22 03:28 [place] # (Auto) 0.6 10^3/uL (0.2-0.9) 06/15/22 03:28 Eos # (Auto) 0.2 10^3/uL (0.0-0.8) 06/15/22 03:28 Baso # (Auto) 0.0 10^3/uL (0.0-0.1) 06/15/22 03:28 Nucleated RBC % (auto) 0 % 06/15/22 03:28 Nucleated RBCs # 0.0 /100WBC 06/15/22 03:28 PT 13.80 SECONDS (12.1-14.9) 06/14/22 10:44 INR 1.03 (0.8-1.2) 06/14/22 10:44 APTT 29.1 SECONDS (23.9-36.7) 06/14/22 10:44 Sodium 141 mmol/L (136-145) 06/15/22 03:28 Potassium 4.3 mmol/L (3.5-5.1) 06/15/22 03:28 Chloride 106 mmol/L (98-107) 06/15/22 03:28 Carbon Dioxide 21 mmol/L (22-29) L 06/15/22 03:28 Anion Gap 18.3 (5-19) 06/15/22 03:28 BUN 10 mg/dL (8-23) 06/15/22 03:28 Creatinine 0.5 mg/dL (0.5-0.9) 06/15/22 03:28 GFR Calculation 125.0 mL/min (90-130) 06/15/22 03:28 Glucose 142 mg/dL (65-115) H 06/15/22 03:28 POC Glucose 191 mg/dL (70-110) H 06/15/22 11:10 Calculated Osmolality 293 mOsm/kg (285-295) 06/15/22 03:28 Calcium 9.0 mg/dL (8.5-10.5) 06/15/22 03:28 Total Bilirubin 0.6 mg/dL (0.15-1.2) 06/14/22 10:44 AST 25 U/L (0-32) 06/14/22 10:44 ALT 35 U/L (0-33) H 06/14/22 10:44 Alkaline Phosphatase 83 U/L (35-105) 06/14/22 10:44 Troponin T Baseline 9 ng/L (0-10) 06/14/22 10:44 Troponin T 120 Minute 12.88 ng/L (0-10) H 06/14/22 12:50 Delta Troponin T 3.88 ABS# (0-10) 06/14/22 12:50 Troponin T Hi Sens 6Hr 10.50 ng/L (0-10) H 06/14/22 16:19 Troponin T Hi Sens 6Hr Delta 1.50 ng/L (0-12) 06/14/22 16:19 Total Protein 7.8 g/dL (6.6-8.7) 06/14/22 10:44 Albumin 4.0 g/dL (3.5-5.2) 06/14/22 10:44 Globulin 3.8 g/dL (1.3-4.6) 06/14/22 10:44 Urine Color Yellow (Yellow) 06/14/22 11:13 Urine Appearance Hazy (CLEAR) A 06/14/22 11:13 Urine pH 6 (5-7) 06/14/22 11:13 Ur Specific [place] 1.020 (1.005-1.030) 06/14/22 11:13 Urine Protein Neg (Negative) 06/14/22 11:13 Urine Glucose (UA) Norm (Normal) 06/14/22 11:13 Urine Ketones Negative (Negative) 06/14/22 11:13 Urine Blood Neg (Negative) 06/14/22 11:13 Urine Nitrate Positive (Negative) H 06/14/22 11:13 Urine Bilirubin Neg (Negative) 06/14/22 11:13 Urine Urobilinogen 1 mg/dL (Negative) H 06/14/22 11:13 Ur Leukocyte Esterase Negative (Negative) 06/14/22 11:13 Urine RBC Rare /hpf (0-2) 06/14/22 11:13 Urine WBC 5-10 /hpf (0-5) H 06/14/22 11:13 Ur Squamous Epith Cells 0-4 /hpf (0-5) H 06/14/22 11:13 Amorphous Sediment Not Reportable 06/14/22 11:13 Urine Bacteria 4+ /hpf (NONE) H 06/14/22 11:13 Discharge Plan Discharge Patient Disposition: Placed in Observation Admit Provider: Óscar Lozano Clinical Impression: Chest pain Condition: Stable Discharge Orders: Discharge Order (Routine); Ordered 06/16/22 Ordered By: Óscar Lozano Sign Out Sign Out Data: Patient Sign Out occurred on 06/14/22 at 15:30. Patient's care was discussed, and care was transferred from to Uriel Bae DO. Coding Level of Care Code ED Combination Saw Operator for Chg Fwd Exam Comprehensive Documented by User: Uriel Bae DO 06/26/22 16:18 HPI - Chest Pain General: Chief Complaint: Chest Pain Stated Complaint: Chest pains Time Seen by Provider: 06/14/22 10:06 [facility] ED PFSH: Medical History Cough Depression Essential hypertension Fatigue Generalized body aches HTN (hypertension) with goal to be determined Myocardial infarction acute 09/2019 Neutrophilic leukocytosis Pancreatitis SBO (small bowel obstruction) Shortness of breath Type 2 diabetes mellitus without complication, with no history of insulin use Surgical History H/O exploratory laparotomy Multiple bowel resections History of 3 sections History of appendectomy History of incisional hernia repair S/P cardiac cath S/P cholecystectomy S/P DONNA-BSO Status post colonoscopy Family History Mother Cancer, Onset Age: 60 Double mastectomy Sister Cancer, Onset Age: 53 double mastectomy Sister Cancer, Onset Age: 52 partial mastectomy Social History Smoking and tobacco status: current every day smoker cigarettes [ Other cigarette details: On and off ] Alcohol intake: current Alcohol intake frequency: holidays/special occasions only Course Vital Signs: Vital signs: Vital Signs Temperature 99.0 F 06/16/22 07:07 Pulse Rate 86 06/16/22 08:40 Respiratory Rate 16 06/16/22 08:00 Blood Pressure 120/76 06/16/22 08:40 Pulse Oximetry 96 06/16/22 08:00 Oxygen Delivery Me thod 06/16/22 08:00 MDM - Chest Pain Medical Decision Making Dr Lozano added inadvertantly to list of signers in the note after note opened accidentally in Edit mode. Please disregard. Patient care handoff received from [] continuation of ED evaluation. I personally saw and evaluated patient and reperformed duran portions of E/M. Will admit for chest pain and further evaluation patient has had for some time needs to complete cardiac work-up. Labs imaging and EKG reviewed for this visit there are no acute ST changes on EKGs. Medical Records I reviewed the patient's medical records. Lab Data I reviewed the patient's lab results. 06/14/22 10:44 06/14/22 10:44 Radiology Impressions Chest X-Ray 06/14/22 10:06
[2022-06-14 11:13] LABS: INR 1.03 (0.8-1.2); Partial Thromboplastin Time 29.1 SECONDS (23.9-36.7)
[2022-06-14 11:21] LABS: Troponin(5th) Baseline 9 ng/L (0-10)
[2022-06-14 11:25] LABS: Alanine Aminotransferase 35 U/L (0-33); Alkaline Phosphatase 83 U/L (35-105); Anion Gap 16.6 (5-19); Aspartate Amino Transferase 25 U/L (0-32); Blood Urea Nitrogen 7 mg/dL (8-23); Calcium 9.7 mg/dL (8.5-10.5); Carbon Dioxide 22 mmol/L (22-29); Chloride 103 mmol/L (98-107); Globulin 3.8 g/dL (1.3-4.6); Glucose 154 mg/dL (65-115); Osmolality Calculated 287 mOsm/kg (285-295); Potassium 3.6 mmol/L (3.5-5.1); Sodium 138 mmol/L (136-145); Total Bilirubin 0.6 mg/dL (0.15-1.2); Total Protein 7.8 g/dL (6.6-8.7)
[2022-06-14 11:29] LABS: Add Urine Microscopic? YES; Bilirubin Urine Neg (Negative); Blood Urine Neg (Negative); Glucose Urine UA Norm (Normal); Ketones Urine Negative (Negative); Leukocyte Esterase Urine Negative (Negative); Nitrate Urine Positive (Negative); Protein Urine Neg (Negative); Urine Appearance Hazy (CLEAR); Urine Color Yellow (Yellow); Urobilinogen Urine 1 mg/dL (Negative); pH Urine 6 (5-7)
[2022-06-14 11:38] LABS: Add Urine Culture? Yes; Bacteria Urine 4+ /hpf; RBC Urine RARE /hpf (0-2); Squamous Epithelial Cell Urine 0-4 /hpf (0-5)
--- NOTE | 2022-06-14 12:08 | ECG_ITS ---
[facility] Test Date: 2022-06-14 Pat Name: Yessi Schulte Department: Room: Gender: Female Product Transfer Pumper: : 1960 Requested By: Lsea Galeano Order Number: [id number] Gen MD: Tanvir Thrasher M.D. Measurements Intervals [place] Rate: 71 P: -80 AK: 114 QRS: 63 QRSD: 89 T: 46 QT: 400 QTc: 437 Interpretive Statements SINUS RHYTHM LOW QRS VOLTAGE IN PRECORDIAL LEADS [QRS DEFLECTION < 1.0 mV IN CHEST LEADS] MINIMAL ST DEPRESSION [0.025+ mV ST DEPRESSION] Compared to ECG 06/14/2022 10:10:36 ST (T wave) deviation now present Electronically Signed On 06-14-2022 14:46:29 SERVICE CONTROL OPERATOR by Tanvir Thrasher M.D. [id number]
[2022-06-14] MEDS: LORazepam 2 mg Tablet PO (12:11)
[2022-06-14 13:45] LABS: Troponin 5 2HR 12.88 ng/L (0-10)
[2022-06-14 13:49] LABS: Troponin 5 2HR Delta 3.88 ABS# (0-10)
[2022-06-14] MEDS: cefTRIAXone 1,000 MG in water for injection-sterile 2.1 ML 2 MG IM (14:38)
--- NOTE | 2022-06-14 16:06 | ECG_ITS ---
[facility] Test Date: 2022-06-14 Pat Name: Yessi Schulte Department: Room: Gender: Female Autocad Designer: : 1960 Requested By: Lesa Galeano Order Number: [id number] Gen MD: Tanvir Thrasher M.D. Measurements Intervals [place] Rate: 80 P: 65 UT: 130 QRS: 64 QRSD: 90 T: 42 QT: 384 QTc: 445 Interpretive Statements SINUS RHYTHM NONSPECIFIC ST & T-WAVE ABNORMALITY Compared to ECG 06/14/2022 12:08:04 T-wave abnormality now present ST (T wave) deviation no longer present Electronically Signed On 06-14-2022 17:01:36 GRAIN PICKER by Tanvir Thrasher M.D. [id number]
[2022-06-14] MEDS: nicotine 21 mg Patch 1 PATCH TRANSDERMA (17:18)
[2022-06-14] MEDS: nitroglycerin 1 gm/inch oint Pkt 1 INCH TOPICAL (17:18)
--- NOTE | 2022-06-14 17:50 | PM.HP ---
Providers/Chief Complaint Primary Care Provider: Frank Smith DO Chief Complaint: Chest pains History of Present Illness 51-year-old lady with history of CAD, MO, balloon angioplasty 20 years ago after she collapsed during a stress test, active smoker, with history of HTN, DM2, family history of MO with father passing away at age 52 from a massive MO. Has been experiencing chest pain/pressure over the last week, with exertion, not across her chest, with relief from nitroglycerin, previously only with exertion, however, this morning was woken up by chest pressure and was experiencing it at rest as well. Took nitroglycerin with mostly relief of symptoms but does have residual chest pressure. In ER troponin with minimal elevation 9-12.88. EKG with now also new ST depression. Review of Systems Const: Denies: fever(s), chills, body aches or malaise Eyes: Denies: change in vision, eye discomfort or eye redness ENMT: Denies: throat pain, oral sores or ear or mastoid pain Card: Denies: chest pain, edema, pre-syncope or dyspnea on exertion Resp: Denies: dyspnea, productive cough, change in phlegm color or hemoptysis GI: Denies: abdominal pain, nausea, vomiting, diarrhea, constipation, hematochezia or melena : Denies: flank pain, urinary frequency or hematuria Musc: Denies: back pain, joint swelling or joint redness Skin/Breast: Denies: rash or new lesions Neuro: Denies: headache(s), numbness in extremities, weakness in extremities, dizziness, confusion or seizure-like activity Endo: Denies: polyuria or polydipsia [place]/Lymph: Denies: easy bleeding or tender lymph nodes All/Imm: Denies: urticaria or tongue swelling Medications/Allergies Home Medications Medication Instructions Recorded Confirmed Last Taken Type diphenhydramine HCl 25 mg capsule 25 mg PO Q8H PRN Allergy Symptoms 10/26/20 06/14/22 10/26/20 History (Yoselin) metoprolol succinate 25 mg 12.5 mg PO BID #90 tabs 02/06/21 06/14/22 06/14/22 Rx tablet,extended release 24 hr nitroglycerin 0.4 mg sublingual 0.4 mg sublingual Q5M PRN Chest 06/05/21 06/14/2206/14/23 Rx tablet (Nitrostat) Pain #20 tabs albuterol sulfate 90 mcg/actuation 2 puff inhalation QID PRN 06/21/21 06/14/22 06/13/22 History aerosol inhaler (ProAir HFA) Shortness Of Breath ascorbic acid (vitamin C) 500 mg 500 mg PO DAILY 06/21/21 06/14/22 06/13/22 History tablet (Vitamin C) atorvastatin 40 mg tablet 40 mg PO DAILY #90 tabs 03/12/22 06/14/22 06/13/22 Rx isosorbide mononitrate 30 mg 30 mg PO BEDTIME #90 tabs 04/09/22 06/14/22 06/13/22 Rx tablet,extended release 24 hr glipizide 10 mg tablet, extended 10 mg PO QAM #90 tabs 04/20/22 06/14/22 06/13/22 Rx release 24 hr cholecalciferol (vitamin D3) 50 50 mcg PO DAILY 06/14/22 06/14/22 06/13/22 History mcg (2,000 unit) capsule (Vitamin D3) cyanocobalamin (vitamin B-12) 100 100 mcg PO DAILY 06/14/22 06/14/22 06/13/22 History mcg tablet (Vitamin B-12) famotidine 10 mg tablet 10 mg PO BID PRN Acid Reflux 06/14/22 06/14/22 Unknown History gabapentin 300 mg capsule 300 mg PO TID 06/14/22 06/14/22 06/13/22 History melatonin 10 mg tablet 20 mg PO BEDTIME 06/14/22 06/14/22 06/13/22 History Allergies Allergy/AdvReac Type Severity Reaction Status Date / Time ciprofloxacin [From Cipro] Allergy Severe Unresponsiv Verified 06/14/22 10:33 e codeine Allergy Severe ALGY-Anaphy Verified 06/14/22 10:33 laxis lidocaine Allergy Severe ALGY-Swell Verified 06/14/22 10:33 Lip/Tongue/Throat morphine Allergy Severe ALGY-Anaphy Verified 06/14/22 10:33 laxis Penicillins Allergy Severe ALGY-Swell Verified 06/14/22 10:33 Lip/Tongue/Throat procaine [From Novocain] Allergy Severe ALGY-Swell Verified 06/14/22 10:33 Lip/Tongue/Throat prochlorperazine Allergy Severe ALGY-Swell Verified 06/14/22 10:33 [From Compazine] Lip/Tongue/Throat adhesive tape Allergy Unknown Unknown Unverified 06/14/22 18:59 PFSH Acute PFSH: Medical History Cough Depression Essential hypertension Fatigue Generalized body aches HTN (hypertension) with goal to be determined Myocardial infarction acute 09/2019 Neutrophilic leukocytosis Pancreatitis SBO (small bowel obstruction) Shortness of breath Type 2 diabetes mellitus without complication, with no history of insulin use Surgical History H/O exploratory laparotomy Multiple bowel resections History of 3 sections History of appendectomy History of incisional hernia repair S/P cardiac cath S/P cholecystectomy S/P DONNA-BSO Status post colonoscopy Family History Mother Cancer, Onset Age: 60 Double mastectomy Sister Cancer, Onset Age: 53 double mastectomy Sister Cancer, Onset Age: 52 partial mastectomy Social History Smoking and tobacco status: current every day smoker cigarettes [ Other cigarette details: On and off ] Alcohol intake: current Alcohol intake frequency: holidays/special occasions only Female Reproductive History: Spontaneous abortions: No Vitals/I&O/Wt Last Vital Signs Temp 98.4 F 06/14/22 09:58 Pulse 74 06/14/22 15:23 Resp 24 H 06/14/22 10:51 BP 144/63 06/14/22 15:23 Pulse Ox 98 06/14/22 15:23 O2 Del Method 06/14/22 10:51 Weight last 48 hrs Weight 53.524 kg Physical Exam Const: COMMON NORMALS: patient oriented x3 and alert GENERAL APPEARANCE: cooperative ORIENTATION/CONSCIOUSNESS: Yes awake HENMT: COMMON NORMALS: oropharynx normal Neck/C-Spine: COMMON NORMALS: no JVD Resp: COMMON NORMALS: normal respiratory effort and clear to auscultation bilaterally AUSCULTATION: clear to auscultation bilaterally Cardio: COMMON NORMALS: no JVD, regular rhythm, S1 normal heart sound present, S2 normal heart sound present and No murmurs present (Cardio) RHYTHM: regular rhythm HEART SOUNDS: S1 normal heart sound present and S2 normal heart sound present GI: COMMON NORMALS: Normal to inspection, nondistended, normoactive bowel sounds present, Soft to palpation and non-tender PALPATION: Yes Soft to palpation Extremity: COMMON NORMALS: no joint enlargement and no pedal edema Neuro: COMMON NORMALS: patient oriented x3 and moves all extremities SENSORIUM/ORIENTATION: Yes alert Skin: COMMON NORMALS: no rashes or lesions noted GENERAL SKIN EXAM: no rashes or lesions noted Data 06/14/22 10:44 06/14/22 10:44 A&P Assessment and plan (1) Unstable angina: Worsening chest pressure, now also at rest. Continue nitroglycerin as needed. If needed may have to start nitro drip. Aspirin, Lovenox, BB, statin. Assess TTE. Cardiology consultation. N.p.o. after midnight for possible need for angiogram tomorrow. (2) UTI (urinary tract infection): Rocephin. Follow-up urine culture. Plan DM2: SSI, CC diet. Smoking addiction: Encourage cessation. Nicotine replacement. Attestations Medical Necessity Statement*: Place in observation for additional assessment management of unstable angina. Coding Level of Care Code Acute Code for [facility] Diagnoses Unstable angina I20.0 UTI (urinary tract infection) N39.0
--- NOTE | 2022-06-14 18:57 | USCV_ITS ---
Yessi Schulte Age: 61 Gender: F : 1960 Exam Date: 06/14/2022 19:32 Ordering Phys: Óscar Lozano MD Technologist: JORGE LUIS Exam Location: [facility] [place] Indication: history CT 2019, no stenting per patient. c/o CP x 1 week. SOB BP: 132 / 71 HR: 88 Rhythm: Sinus Technical Quality: Adequate MEASUREMENTS (Male / Female) Normal Values 2D ECHO LV Diastolic Diameter PLAX 3.5 cm 4.2 - 5.9 / 3.9 - 5.3 cm LV Systolic Diameter PLAX 2.1 cm IVS Diastolic Thickness 0.9 cm 0.6 - 1.0 / 0.6 - 0.9 cm IVS Systolic Thickness 1.1 cm LVPW Diastolic Thickness 1.0 cm 0.6 - 1.0 / 0.6 - 0.9 cm LVPW Systolic Thickness 1.6 cm LVOT Diameter 1.8 cm LV Ejection Fraction 2D Teich 72.9 % LV Ejection Fraction MOD 2C 66.2 % LV Ejection Fraction 2C AL 66.5 % LA Diameter 3.6 cm LA Width 3.2 cm LA Height 4.8 cm RA Width 3.1 cm RA Height 3.9 cm Aorta at Sinotubular Diameter 2.9 cm IVC Diameter 2.2 cm M-MODE Aortic Annulus Diameter 2.8 cm LA Ao Ratio MM 1.3 MV E Point Septal Separation 0.2 cm DOPPLER AV Peak Velocity 121.0 cm/s LVOT Peak Velocity 95.0 cm/s AV Area Cont Eq vti 2.4 cm squared AV Area Cont Eq pk 2.1 cm squared MV Area PHT 2.1 cm squared Mitral E to A Ratio 0.7 MV E' Velocity 27.0 cm/s Mitral E to MV E' Ratio 9.0 Mitral E to LV E' Lateral Ratio 9.4 Mitral E to LV E' Septal Ratio 8.8 TR Peak Velocity 265.8 cm/s TR Peak Gradient 28.2 mmHg TV Peak E Velocity 59.0 cm/s Right Atrial Pressure 5.0 mmHg Pulmonary Artery Systolic Pressu 33.2 mmHg PV Peak Velocity 134.0 cm/s RV Acceleration Time 0.1 s RV Ejection Time 0.4 s RV AcT/ET 0.3 FINDINGS Left Ventricle Left ventricle is normal in size. LV systolic function is normal with EF of 60-65%. No regional wall motion abnormalities are seen. Grade 1 diastolic dysfunction Right Ventricle Normal in size and function Right Atrium Normal in size Left Atrium Normal in size Mitral Valve Structurally normal mitral valve. No significant stenosis or regurgitation seen. Aortic Valve Structurally normal aortic valve.Moderate aortic regurgitation. Tricuspid Valve Mild tricuspid regurgitation. RVSP is 35 to 40 mmHg. This is consistent with mild pulmonary hypertension. Pulmonic Valve Not well-visualized Pericardium Normal Aorta Normal in size IVC Appears to be normal CONCLUSIONS LV systolic function is normal with EF of 55-60% Grade 1 diastolic dysfunction Moderate aortic regurgitation Mild tricuspid regurgitation. Mild pulmonary hypertension No comparison studies are available Tanvir Thrasher MD (Electronically Signed) Final Date: 15 June 2022 07:04 S
[2022-06-14] MEDS: enoxaparin 60 mg/0.6 mL Syringe 50 MG SUBCUT (19:25)
[2022-06-14] MEDS: aspirin 325 mg Tablet PO (19:26)
[2022-06-14] MEDS: gabapentin 300 mg Capsule PO (21:04)
[2022-06-14] MEDS: isosorbide mononitrate ER 30 mg Tablet PO (21:04)
[2022-06-14 21:07] LABS: Glucose Point of Care 115 mg/dL (70-110)
[2022-06-15] VITALS (14 sets, daily range): BP systolic 98–135; BP diastolic 58–93; PULSE 58–99; RESP 16–24; TEMP 36.3–37.2; O2SAT 90–100
[2022-06-15 04:22] LABS: Basophils % 0.4 %; Eosinophils # 0.2 10^3/uL (0.0-0.8); Eosinophils % 2.6 %; Hematocrit 37.4 % (37.0-47.0); Hemoglobin 12.3 g/dL (11.5-15.3); Lymphocytes # 3.5 10^3/uL (0.8-4.8); Lymphocytes % 42.3 %; Mean Corpuscular HGB Conc 32.9 g/dL (30.0-36.0); Mean Corpuscular Hemoglobin 31.4 pg (28.0-34.0); Mean Corpuscular Volume 95.4 fl (81-99); Mean Platelet Volume 8.9 fL (7.4-10.4); Monocytes # 0.6 10^3/uL (0.2-0.9); Monocytes % 6.7 %; Neutrophils # 3.99 10^3/uL (1.8-7.7); Neutrophils % 47.6 %; Nucleated Red Blood Cells % 0 %; Platelet Count 391 10^3/cmm (130-400); Red Blood Count 3.92 10^6/uL (4.1-5.3); Red Cell Distribution Width 12.3 % (12.1-15.1); White Blood Count 8.4 10^3/uL (4.0-10.0)
[2022-06-15 04:56] LABS: Blood Urea Nitrogen 10 mg/dL (8-23); Carbon Dioxide 21 mmol/L (22-29); Chloride 106 mmol/L (98-107); Glucose 142 mg/dL (65-115); Osmolality Calculated 293 mOsm/kg (285-295); Sodium 141 mmol/L (136-145)
[2022-06-15 04:57] LABS: Anion Gap 18.3 (5-19)
[2022-06-15 04:58] LABS: Potassium 4.3 mmol/L (3.5-5.1)
--- NOTE | 2022-06-15 05:33 | PM.CONSULT ---
Providers/Reason For Consult Consulting Physician/Specialty*: Tanvir Thrasher MD/ Cardiology Reason for Consult*: Unstable angina Requesting Physician: Dr Lozano Attending Physician: Óscar Lozano Primary Care Provider: Frank Smith DO History of Present Illness History of Present Illness Yessi Schulte is a 61 year old female with past medical history of coronary artery disease with balloon angioplasty performed several years ago, smoking, hypertension, diabetes, family history of CAD who presented to the hospital with 1 week of on and off chest discomfort episodes. According to patient it is mostly exertional. However has noted resting symptoms as well. It is substernal and radiates to the neck and shoulders. Her troponins have not trended up significantly. EKG shows normal sinus rhythm with nonspecific ST-T wave changes. Review of Systems Const: Denies: fever(s), chills, body aches or malaise Eyes: Denies: change in vision, eye discomfort or eye redness ENMT: Denies: throat pain, oral sores or ear or mastoid pain Card: Reports: chest pain; Denies: edema, pre-syncope or dyspnea on exertion Resp: Denies: dyspnea, productive cough, change in phlegm color or hemoptysis GI: Denies: abdominal pain, nausea, vomiting, diarrhea, constipation, hematochezia or melena : Denies: flank pain, urinary frequency or hematuria Musc: Denies: back pain, joint swelling or joint redness Skin/Breast: Denies: rash or new lesions Neuro: Denies: headache(s), numbness in extremities, weakness in extremities, dizziness, confusion or seizure-like activity Endo: Denies: polyuria or polydipsia Keaton/Lymph: Denies: easy bleeding or tender lymph nodes All/Imm: Denies: urticaria or tongue swelling Medications/Allergies Home Medications Medication Instructions Recorded Confirmed Last Taken Type diphenhydramine HCl 25 mg capsule 25 mg PO Q8H PRN Allergy Symptoms 10/26/20 06/14/22 10/26/20 History (Benadryl) metoprolol succinate 25 mg 12.5 mg PO BID #90 tabs 02/06/21 06/14/22 06/14/22 Rx tablet,extended release 24 hr nitroglycerin 0.4 mg sublingual 0.4 mg sublingual Q5M PRN Chest 06/05/21 06/14/22 06/14/22 Rx tablet (Nitrostat) Pain #20 tabs albuterol sulfate 90 mcg/actuation 2 puff inhalation QID PRN 06/21/21 06/14/22 06/13/22 History aerosol inhaler (ProAir HFA) Shortness Of Breath ascorbic acid (vitamin C) 500 mg 500 mg PO DAILY 06/21/21 06/14/22 06/13/22 History tablet (Vitamin C) atorvastatin 40 mg tablet 40 mg PO DAILY #90 tabs 03/12/22 06/14/22 06/13/22 Rx isosorbide mononitrate 30 mg 30 mg PO BEDTIME #90 tabs 04/09/22 06/14/22 06/13/22 Rx tablet,extended release 24 hr glipizide 10 mg tablet, extended 10 mg PO QAM #90 tabs 04/20/22 06/14/22 06/13/22 Rx release 24 hr cholecalciferol (vitamin D3) 50 50 mcg PO DAILY 06/14/22 06/14/22 06/13/22 History mcg (2,000 unit) capsule (Vitamin D3) cyanocobalamin (vitamin B-12) 100 100 mcg PO DAILY 06/14/22 06/14/22 06/13/22 History mcg tablet (Vitamin B-12) famotidine 10 mg tablet 10 mg PO BID PRN Acid Reflux 06/14/22 06/14/22 Unknown History gabapentin 300 mg capsule 300 mg PO TID 06/14/22 06/14/22 06/13/22 History melatonin 10 mg tablet 20 mg PO BEDTIME 06/14/22 06/14/22 06/13/22 History Allergies Allergy/AdvReac Type Severity Reaction Status Date / Time ciprofloxacin [From Cipro] Allergy Severe Unresponsiv Verified 06/14/22 19:24 e codeine Allergy Severe ALGY-Anaphy Verified 06/14/22 19:24 laxis lidocaine Allergy Severe ALGY-Swell Verified 06/14/22 19:24 Lip/Tongue/Throat morphine Allergy Severe ALGY-Anaphy Verified 06/14/22 19:24 laxis Penicillins Allergy Severe ALGY-Swell Verified 06/14/22 19:24 Lip/Tongue/Throat procaine [From Novocain] Allergy Severe ALGY-Swell Verified 06/14/22 19:24 Lip/Tongue/Throat prochlorperazine Allergy Severe ALGY-Swell Verified 06/14/22 19:24 [From Compazine] Lip/Tongue/Throat adhesive tape Allergy Unknown Unknown Verified 06/14/22 19:24 Current Medications Generic Name Dose Route Start Last Admin Trade Name Aguilaq PRN Reason Stop Dose Admin Aspirin 325 mg 06/14/22 18:57 06/14/22 19:26 Aspirin 325 Mg Tablet PO 325 mg DAILY ISABELLA Administration Enoxaparin Sodium 50 mg 06/14/22 20:00 06/14/22 19:25 Enoxaparin 60 Mg/0.6 Ml Syringe SUBCUT 50 mg Q12H ISABELLA Administration Gabapentin 300 mg 06/14/22 21:00 06/14/22 21:04 Gabapentin 300 Mg Capsule PO 300 mg TID ISABELLA Administration Insulin Human Lispro 0 unit 06/14/22 21:00 06/14/22 21:13 Insulin Lispro 100 Unit/1 Ml SUBCUT Not Given WM&BEDTIME ISABELLA Protocol Isosorbide Mononitrate 30 mg 06/14/22 21:00 06/14/22 21:04 Isosorbide Mononitrate Er 30 Mg Tablet PO 30 mg BEDTIME ISABELLA Administration PFSH Acute PFSH: Medical History Cough Depression Essential hypertension Fatigue Generalized body aches HTN (hypertension) with goal to be determined Myocardial infarction acute 09/2019 Neutrophilic leukocytosis Pancreatitis SBO (small bowel obstruction) Shortness of breath Type 2 diabetes mellitus without complication, with no history of insulin use Surgical History H/O exploratory laparotomy Multiple bowel resections History of 3 sections History of appendectomy History of incisional hernia repair S/P cardiac cath S/P cholecystectomy S/P DONNA-BSO Status post colonoscopy Family History Mother Cancer, Onset Age: 60 Double mastectomy Sister Cancer, Onset Age: 53 double mastectomy Sister Cancer, Onset Age: 52 partial mastectomy Social History Smoking and tobacco status: current every day smoker cigarettes [ Other cigarette details: On and off ] Alcohol intake: current Alcohol intake frequency: holidays/special occasions only Female Reproductive History: Spontaneous abortions: No Vitals/I&O/Wt Last Vital Signs Temp 97.4 F L 06/15/22 04:00 Pulse 84 06/15/22 04:00 Resp 24 H 06/15/22 04:00 BP 115/58 06/15/22 04:00 Pulse Ox 91 06/15/22 04:00 O2 Del Method 06/15/22 04:00 06/14/22 06/14/22 06/15/22 14:59 22:59 06:59 Intake Total 242.1 / 242.1 Output Total 100 / 100 Balance 142.1 / 142.1 Weight last 48 hrs Weight 118 lb Physical Exam Narrative: GENERAL: Patient is alert, awake and oriented x3. [] NECK: No jugular vein distension. [] HEENT: No cyanosis. No icterus. No pallor. [] HEART: Regular S1 and S2. No murmur, rub or gallop. [] LUNGS: Clear to auscultate bilaterally. [] CENTRAL NERVOUS SYSTEM: Grossly nonfocal. [] EXTREMITIES: Lower extremities with 1+ edema bilaterally. Pulses palpable in the lower extremities, both dorsalis pedis and posterior tibial. [] Data 06/15/22 03:28 06/15/22 03:28 A&P Assessment and plan (1) Unstable angina: (2) HTN (hypertension) with goal to be determined: (3) Mixed dyslipidemia: (4) Type 2 diabetes mellitus without complication, with no history of insulin use: Plan Patient has presented with typical chest pain symptoms that are worsening. This is consistent with unstable angina. She has been put on anticoagulation. Continue for now. Continue aspirin We will proceed with coronary angiogram with possible percutaneous coronary intervention. Risks and benefits of the procedure have been discussed in detail. Patient understands the risks and benefits and wants to proceed with the procedure. NPO ECHO ordered Thank you for involving us with care of this patient. We will continue to follow. Please call with questions. Consult Attestations Medical Necessity Statement: Care expected to cross 2 midnights. Coding Level of Care Code Acute Code for [facility] Fwd Diagnoses Unstable angina I20.0 HTN (hypertension) with goal to be determined I10 Mixed dyslipidemia E78.2 Type 2 diabetes mellitus without complication, with no history of insulin use E11.9
[2022-06-15 06:52] LABS: Glucose Point of Care 164 mg/dL (70-110)
--- NOTE | 2022-06-15 06:58 | W.PM.OPSUD ---
Surgery/Procedure H&P Update DATE OF PROCEDURE: June 15, 2022 DATE H&P PERFORMED: 06/15/22 H&P UPDATE INFORMATION: I have reviewed H&P completed within last 30 days, I have examined patient prior to procedure and No changes to prior documentation PREOP DIAGNOSIS: Unstable angina PRIMARY INDICATION FOR PROCEDURE: Unstable angina PLANNED PROCEDURE: Left heart cath with possible percutaneous coronary intervention PATIENT REASSESSED PRIOR TO SEDATION, WITH NO CHANGE NOTED: Yes PHYSICAL EXAM: alert, oriented x 3, clear to auscultation bilaterally and regular rate & rhythm AIRWAY EVAL/ANESTHESIA PLAN: normal airway, ASA III, Local Anesthesia, Risks, benefits & alternatives of sedation and/or procedure discussed and Patient agrees to continue as planned ADDITIONAL INFORMATION: Moderate sedation
--- NOTE | 2022-06-15 07:01 | XACV_ITS ---
Exam Room: [facility] Ht: 155 cm Wt: 54 kg BSA: 1.52 m2 Gender: Female : 1960 Any Known Allergies: Morphine Exam Priority: Routine Procedure(s): Procedure Description: Diagnostic procedure Procedure Description: PCI procedure Procedure Description: Drug Eluting Coronary Stent Procedure Description: PTCA Procedure Description: Miscellaneous Procedure Description: ACT Procedure Description: Coronary Angiography Procedure Description: Pressure Wire Diagnostic Cath Status: Urgent Diagnostic Findings * INDICATION: Unstable angina. * Left Main has no significant disease. * Circumflex has no significant disease. * Proximal Left Anterior Descending: moderate 50% stenosis, ROSAMARIA: 3 flow. * Proximal Right Coronary Artery to Mid Right Coronary Artery: significant 80% stenosis, ROSAMARIA: 3 flow. * Coronary angiography shows right dominance. PCI Status: Urgent PCI Indication: Other Interventional Findings * PROCEDURE DETAIL: After diagnostic procedure, we decided to perform IFR of proximal LAD and PCI of proximal to mid RCA. First we engaged left main artery with XB 3.0 guide catheter. IV heparin was administered to maintain ACT above 250 S. After normalization IFR wire was advanced into distal LAD and an IFR value of 0.91 was obtained. This was nonischemic. Medical therapy of LAD was decided. Guidewire and guide catheter were removed. We then turned our attention to culprit lesion for unstable angina that was proximal to mid RCA. We engaged RCA with JR4 guide catheter. 0.014 run-through guidewire was used to to cross proximal to mid RCA stenosis and was put in distal vessel. We predilated the stenosis with 2.5 x 15 mm semicompliant balloon. This was followed by placement of 3.0 x 30 mm resolute Cathy drug-eluting stent. At this time final angiogram was performed that showed excellent stent expansion, no residual stenosis and ROSAMARIA-3 flow. Guidewire and guide catheter were removed. Patient left the Program Schedule Clerk in a stable condition.. * Proximal Right Coronary Artery to Mid Right Coronary Artery: 80% stenosis treated with a AB TREK 2.50X15 RX BALLOON, and MDT R CATHY 3.0X30 CHASE. 0% residual stenosis, ROSAMARIA: 3 flow. Conclusions 1. Severe proximal to mid RCA stenosis s/p successful revascularization with CHASE x1.. 2. Moderate proximal LAD stenosis confirmed with nonischemic IFR value of 0.91. 3. Proximal Right Coronary Artery to Mid Right Coronary Artery was treated with a Balloon, and Drug Eluting Stent. Recommendations * Dual antiplatelet therapy with aspirin and Plavix for at least 1 year. * High intensity statin therapy. * Outpatient cardiology follow-up in 4 weeks. Interventional RX Recommendation: PCI w/o planned CABG Diagnostic RX Recommendation: PCI w/o planned CABG Anticoagulation: Heparin Pressures Phase:Rest AO : 95 / 38 ( 67 ) @ 7:32:00 AM 110 / 46 ( 77 ) @ 7:36:00 AM 109 / 76 ( 94 ) @ 7:39:00 AM 127 / 69 ( 95 ) @ 7:46:00 AM Clinical Evaluation EBL: 5mL-10mL Procedural Details Procedure Consent Obtained. Admit Source: In Patient. Pre-Procedure Time Out. Identified patient by full name and date of as verbalized by the patient/guarantor. Does the consent match the physician's order: Yes. Accurate & Complete Informed Consent: Yes. Inpatient/Outpatient History & Physical on Chart: Yes. If H&P is completed, is and addenduem needed: No; If yes, is the addendum complete: N/A. Visualize and Verify Site with Patient/Guarantor: N/A. Relevant Radiology Images available: N/A. Pre-op teaching completed and patient verbalized understanding. The risks, benefits, and alternatives of sedation and/or procedure were discussed by physician. The patient agrees to continue. Procedure started. [facility] Clinical Fraility Score: 3: Managing Well. Program Schedule Clerk Indications: Worsening Angina. Chest Pain Symptom Assessment: Typical Angina Symptoms. Correct patient, site and procedure confirmed by cath team. Current diagnosis: Unstable angina. PERRLA. Strong, equal hand clinical staff educator bilaterally. Lungs clear x 5 lobes. IV Site on Arrival: 20 gauge in the right forearm. IV Fluids: 0.9% NaCl at KVO. 0 mL infused prior to boat laborer. Pre Procedural Pulses: right radial was 1+. Pre Procedural Pulses: bilateral dorsalis pedis was 2+. Oxygen started at 2liters/min via nasal canula. right groin was prepped with chloroprep then draped in the usual sterile fashion. right radial was prepped with chloroprep then draped in the usual sterile fashion. Baseline sample Acquired. HR: 104 BPM. Physician notified. Baseline sample Acquired. HR: 105 BPM. Physician arrived. Physician scrubbed in. Immediate Pre-Procedure Time Out. Correct Patient: Yes; Correct Procedure: Yes; Correct Site: Yes; Correct Patient Position: Yes; Correct Supplies: Yes; Dried Flammable Prep: Yes; Blood Products Available: N/A;. Arterial access obtained. A 5 [address] lucian TIG catheter in over wire. Multiple views taken of left coronary artery. Catheter redirected to the RCA. Multiple views taken of right coronary artery. Catheter removed over the exchange wire. 6 st lucian XB 3 guide catheter was inserted over the wire. IFR guidewire was advanced through the guide catheter to lesion in the prox LAD. Fractional flow reserve measurements obtained. Guide catheter and IFR wire removed. 6 st lucian JR 4 guide catheter was inserted over the wire. ACT drawn. Results 223 seconds. Therapeutic limits - pre-heparin administration 90-150 seconds and monitoring heparin during a vascular procedure >250 seconds. Inflation number : 1 A AB TREK 2.50X15 RX BALLOON was prepped and advanced across the Prox RCA , then inflated to 12 WILL for 0:07 seconds. Inflation number: 2 The AB TREK 2.50X15 RX BALLOON was reinflated across the Prox RCA, to 12 WILL for 0:10 seconds. Inflation number: 3 The AB TREK 2.50X15 RX BALLOON was reinflated across the Prox RCA, to 12 WILL for 0:09 seconds. Balloon inserted to lesion in the prox RCA. Balloon out. Results checked. Balloon inserted to lesion in the prox RCA. Inflation number: 4 The AB TREK 2.50X15 RX BALLOON was reinflated across the Prox RCA, to 12 WILL for 0:15 seconds. Results checked. Balloon out. Stent inserted to lesion in the prox RCA. Inflation Number : 5 A BLADIMIR Buenrostro CATHY 3.0X30 CHASE -Lot Number# [id number]/01/2024 was prepped and advanced across the Prox RCA. The stent was deployed at 12 WILL for 0:20 seconds. Stent balloon out over wire. Results checked. Wire out. [place] repositioned to prox RCA. Results checked. Guide catheter out. ACT drawn. Results 365 seconds. Therapeutic limits - pre-heparin administration 90-150 seconds and monitoring heparin during a vascular procedure >250 seconds. A TR Band was successful obtaining hemostatsis at the Right Radial artery insertion site. Post Procedure: Pulses reassessed and unchanged. PERRLA. Strong, equal hand clinical staff educator bilaterally. No VTE prophylaxis required. Post-op diagnosis: Severe Prox RCA stenosis S/P successful PCI with 1 stent. Complications: none. No VTE prophylaxis required. Total IV fluids: 119 mL. Medication's Wasted: Other = Versed 2 mg. Medication's Wasted: Nitro = 49.8 mg. Estimated blood loss: 5mL-10mL. Responsiveness - Normal response to verbal stimuli; alert and oriented, PERRLA. Airway - Unaffected, no intervention required; spontaneous ventilation. Circulation: W/N/L, pulses unchanged. Nausea/Vomiting: No. Procedure completed. Patient transferred by wheelchair to 1st floor. Vital chart was stopped. Access Site Site: Right Radial artery Sheath Size: 6 Fr Hemostasis Method: TR Band Hemostasis Success: Successful Procedure Medications Start: 7:12 AM Stop: 7:12 AM Medication: Versed Amount: 1 mg Route: I.V. Start: 7:12 AM Stop: 7:12 AM Medication: Fentanyl Amount: 25 mcg Route: I.V. Start: 7:12 AM Stop: 7:12 AM Medication: Benadryl Amount: 50 mg Route: I.V. Start: 7:15 AM Stop: 7:15 AM Medication: Versed Amount: 1 mg Route: I.V. Start: 7:15 AM Stop: 7:15 AM Medication: Fentanyl Amount: 25 mcg Route: I.V. Start: 7:16 AM Stop: 7:16 AM Medication: Heparin Amount: 5000 units Route: I.V. Start: 7:17 AM Stop: 7:17 AM Medication: Versed Amount: 1 mg Route: I.V. Start: 7:32 AM Stop: 7:32 AM Medication: Heparin Amount: 2000 units Route: I.V. Start: 7:44 AM Stop: 7:44 AM Medication: Fentanyl Amount: 25 mcg Route: I.V. Start: 7:44 AM Stop: 7:44 AM Medication: Versed Amount: 1 mg Route: I.V. Start: 7:49 AM Stop: 7:49 AM Medication: Plavix Amount: 300 mg Route: P.O. Start: 7:49 AM Stop: 7:49 AM Medication: Aspirin Amount: 325 mg Route: P.O. Start: 7:13 AM Stop: 7:13 AM Medication: Nitrogylcerin Amount: 200 mcg Route: I.A. I, the attending physician, have reviewed and verified all procedure medications. Yes, all medications given per verbal order History/Risk Factors Hypertension: Yes Dyslipidemia: No Peripheral Arterial Disease (PAD): No Myocardial Infarction (OK): No Obesity: No Renal Disease: No Tobacco Use: Current/Recent(w/in 1 year) Prior Interventions PCI: Yes CABG: No Valve Surgery: No Report Signatures Finalized by Tanvir Thrasher MD on 06/16/2022 10:42 PM
--- NOTE | 2022-06-15 07:27 | PC.NURSE ---
Patient taken for cardiac cath at 0655 via w/c
--- NOTE | 2022-06-15 08:00 | SUR.EXTENDED ---
Received the patient back from the recyclable materials distributor via wheelchair s/p PCI of the RCA. Patient ambulated with ease to the restroom to urinate and then back to Room #4. application development consultant placed and vital signs obtained. TR band intact to the right radial. No bleeding or hematoma noted. Post cath activity instructions given verbally to the patient with her understanding voiced. Will go back to 111-2 shortly.
[2022-06-15 09:44] LABS: Glucose Point of Care 151 mg/dL (70-110)
[2022-06-15] MEDS: gabapentin 300 mg Capsule PO ×3 (09:48→20:23)
[2022-06-15] MEDS: metoprolol succinate ER (24 HR) 25 mg Tablet 12.5 MG PO ×2 (09:48→17:55)
[2022-06-15] MEDS: atorvastatin 40 mg Tablet PO (09:49)
[2022-06-15] MEDS: insulin lispro 100 unit/1 mL SUBCUT ×4 (09:49→21:17)
--- NOTE | 2022-06-15 10:57 | PC.CHAP ---
Pastoral Care Encounter/Spiritual Assessment Type of Contact [] Declined external auditor visit [] Patient/Family/Request visit [] Outpatient visit [] Follow-up visit [] Physician referral [] Code/Alert [x] Routine visit [] Staff referral [] Actively dying [] Patient sleeping [] Family support [] [] Out of room [] Palliative care [] [] Receiving care in room [] Pre-surgical visit [] Trauma [] Long length of stay [] ICU visit [] Other: Relational/Emotional Strength [x] Patient feels connected with others/family/visitors/staff [] Distress [] Loneliness/isolation [] Abandonment Spirituality of Patient [x Person of Ale [] Attends Presybeterian of their Ale [x] Believes in Prayer [] Reads Bible or Druze materials [] There are Spiritual issues to be addressed Building Coordinator Interventions [x] Prayer [] Active listening [] Non-anxious presence [] Spiritual/emotional support [] Crisis/trauma care [] Spiritual counseling [] Bereavement support [] Provided bereavement packet [] Provided Bible/devotional materials [] Provided toy/stuffed animal, coloring book to patient or family member [] Provided Communion [] Anointing/[place] [] Salvation [x] Completed spiritual assessment [] Other: Impact on Illness or Injury [] Angry [] Fearful [] Anxious [] Often cries [] Exhaustion [] Unable to work [] Unable to attend mormon [] Unable to walk/stand [] Unable to read [] Unable to drive [] Unable to eat/drink [] Unable to sleep [] Unable to be with family [] Patient intubated [] Other: Summary Time spent with patient 1`0 min
[2022-06-15 11:30] LABS: Glucose Point of Care 191 mg/dL (70-110)
--- NOTE | 2022-06-15 13:04 | PM.PN ---
Subjective Subjective: She reports today she is feeling better. Denies chest pain. No trouble breathing. No nausea vomiting or diarrhea. Vitals/I&O/Wt Last Vital Signs Temp 97.4 F L 06/15/22 04:00 Pulse 99 06/15/22 12:06 Resp 20 H 06/15/22 12:06 BP 119/84 06/15/22 12:06 Pulse Ox 97 06/15/22 12:06 O2 Del Method 06/15/22 08:50 06/14/22 06/15/22 06/15/22 22:59 06:59 14:59 Intake Total 242.1 / 242.1 360 / 360 Output Total 100 / 100 200 / 200 Balance 142.1 / 142.1 160 / 160 Weight last 48 hrs Weight 53.524 kg Physical Exam Const: COMMON NORMALS: patient oriented x3 and alert GENERAL APPEARANCE: cooperative ORIENTATION/CONSCIOUSNESS: Yes awake HENMT: COMMON NORMALS: oropharynx normal Neck/C-Spine: COMMON NORMALS: no JVD Resp: COMMON NORMALS: normal respiratory effort and clear to auscultation bilaterally AUSCULTATION: clear to auscultation bilaterally Cardio: COMMON NORMALS: no JVD, regular rhythm, S1 normal heart sound present, S2 normal heart sound present and No murmurs present (Cardio) RHYTHM: regular rhythm HEART SOUNDS: S1 normal heart sound present and S2 normal heart sound present GI: COMMON NORMALS: Normal to inspection, nondistended, normoactive bowel sounds present, Soft to palpation and non-tender PALPATION: Yes Soft to palpation Extremity: COMMON NORMALS: no joint enlargement and no pedal edema OTHER: TR band right wrist Neuro: COMMON NORMALS: patient oriented x3 and moves all extremities SENSORIUM/ORIENTATION: Yes alert Skin: COMMON NORMALS: no rashes or lesions noted GENERAL SKIN EXAM: no rashes or lesions noted Data 06/15/22 03:28 06/15/22 03:28 Micro: Microbiology 06/14/22 11:13 Urine Culture - Preliminary Urine,Clean Catch Gram Negative Rods A&P Assessment and plan (1) Unstable angina: Status post coronary angiogram and PCI with stenting of RCA via right wrist. TR band in place. Continue post angiogram care. Continue cardiac medications, telemetry monitoring. Reassess, if doing well possible discharge home in the morning. (2) UTI (urinary tract infection): Rocephin. Follow-up urine culture. Gram-negative rods. Plan DM2: SSI, CC diet. Smoking addiction: Encourage cessation. Nicotine replacement. Attestations Medical Necessity Statement*: Continue admission for management following unstable angina, stenting of right coronary artery, treatment of UTI. Coding Level of Care Code Acute Code for [facility] Diagnoses Unstable angina I20.0 UTI (urinary tract infection) N39.0
[2022-06-15 16:13] LABS: Glucose Point of Care 141 mg/dL (70-110)
[2022-06-15] MEDS: ALPRAZolam 0.5 mg Tablet PO (18:24)
[2022-06-15] MEDS: isosorbide mononitrate ER 30 mg Tablet PO (20:23)
[2022-06-15] MEDS: enoxaparin 60 mg/0.6 mL Syringe 50 MG SUBCUT (20:23)
[2022-06-15 21:04] LABS: Glucose Point of Care 228 mg/dL (70-110)
[2022-06-16] VITALS: BP 101/66; PULSE 91; RESP 23; TEMP 36.3; O2SAT 91
[2022-06-16 00:51] LABS: Glucose Point of Care 114 mg/dL (70-110)
[2022-06-16] MEDS: ALPRAZolam 0.5 mg Tablet PO ×2 (01:00→10:21)
[2022-06-16 04:00] VITALS: BP 108/79; PULSE 76; RESP 23; TEMP 36.7; O2SAT 100
[2022-06-16 05:40] VITALS: PULSE 72
[2022-06-16 05:44] LABS: Anion Gap 11.3 (5-19); Blood Urea Nitrogen 8 mg/dL (8-23); Calcium 9.2 mg/dL (8.5-10.5); Carbon Dioxide 26 mmol/L (22-29); Chloride 105 mmol/L (98-107); Glomerular Filtration Rate 101.3 mL/min (90-130); Glucose 150 mg/dL (65-115); Osmolality Calculated 287 mOsm/kg (285-295); Potassium 4.3 mmol/L (3.5-5.1); Sodium 138 mmol/L (136-145)
[2022-06-16 06:42] LABS: Glucose Point of Care 133 mg/dL (70-110)
[2022-06-16 07:07] VITALS: BP 97/60; PULSE 79; RESP 20; TEMP 37.2; O2SAT 98
[2022-06-16 08:00] VITALS: PULSE 82; RESP 16; O2SAT 96
--- NOTE | 2022-06-16 08:10 | P.PN_ITS ---
Subjective Subjective: Patient is doing well. No chest pain. Yesterday cardiac cath showed severe prox to mid RCA stenosis that underwent successful revascularization with CHASE x 1. LAD iFR was negative for ischemia Vitals/I&O/Wt Last Vital Signs Temp 99.0 F 06/16/22 07:07 Pulse 82 06/16/22 08:00 Resp 16 06/16/22 08:00 BP 97/60 06/16/22 07:07 Pulse Ox 96 06/16/22 08:00 O2 Del Method 06/16/22 08:00 06/15/22 06/16/22 06/16/22 22:59 06:59 14:59 Intake Total 840 / 1200 120 / 1320 Output Total 1000 / 1200 1250 / 2450 Balance -160 / 0 -1130 / -1130 Weight last 48 hrs Weight 123 lb 12.8 oz Weight 118 lb Physical Exam Narrative: GENERAL: Patient is alert, awake and oriented x3. [] NECK: No jugular vein distension. [] HEENT: No cyanosis. No icterus. No pallor. [] HEART: Regular S1 and S2. No murmur, rub or gallop. [] LUNGS: Clear to auscultate bilaterally. [] CENTRAL NERVOUS SYSTEM: Grossly nonfocal. [] EXTREMITIES: Lower extremities with 1+ edema bilaterally. Pulses palpable in the lower extremities, both dorsalis pedis and posterior tibial. [] Data 06/15/22 03:28 06/16/22 04:55 Micro: Microbiology 06/14/22 11:13 Urine Culture - Preliminary Urine,Clean Catch Gram Negative Rods A&P Assessment and plan (1) Unstable angina: (2) HTN (hypertension) with goal to be determined: (3) Mixed dyslipidemia: (4) Type 2 diabetes mellitus without complication, with no history of insulin use: Plan Patient underwent successful revascularization of the RCA with CHASE x1 . Continue aspirin and plavix for atleast 1 year ECHO shows normal LV systolic function Smoking cessation advised High intensity statin therapy Thank you for involving us with care of this patient. Patient is stable to be discharged from cardiology standpoint. Please call with questions. Attestations Medical Necessity Statement*: Care expected to cross 2 midnights. Coding Level of Care Code Acute Code for [facility] Fwd Diagnoses Unstable angina I20.0 HTN (hypertension) with goal to be determined I10 Mixed dyslipidemia E78.2 Type 2 diabetes mellitus without complication, with no history of insulin use E11.9
[2022-06-16 08:40] VITALS: BP 120/76; PULSE 86
[2022-06-16] MEDS: gabapentin 300 mg Capsule PO (08:50)
[2022-06-16] MEDS: clopidogrel 75 mg Tablet PO (08:50)
[2022-06-16] MEDS: atorvastatin 40 mg Tablet PO (08:50)
[2022-06-16] MEDS: enoxaparin 60 mg/0.6 mL Syringe 50 MG SUBCUT (08:50)
[2022-06-16] MEDS: aspirin 325 mg Tablet PO (08:50)
[2022-06-16] MEDS: metoprolol succinate ER (24 HR) 25 mg Tablet 12.5 MG PO (08:50)
--- NOTE | 2022-06-16 19:35 | P.DS_ITS ---
Discharge Providers Date of Admission: 06/15/22 13:40 Date of Discharge: June 16, 2022 Attending Provider at Admission: Óscar Lozano Attending Provider at Discharge: Óscar Lozano Primary Care Provider: Frank Smith DO Diagnoses at Discharge Discharge Diagnosis (1) Unstable angina: Status: Acute (2) HTN (hypertension) with goal to be determined: Status: Acute (3) Mixed dyslipidemia: Status: Acute (4) Type 2 diabetes mellitus without complication, with no history of insulin use: Status: Acute Reason for Visit Reason for Visit: Chest pains Brief History: 51-year-old lady with history of CAD, MS, balloon angioplasty 20 years ago after she collapsed during a stress test, active smoker, with history of HTN, DM2, family history of MS with father passing away at age 52 from a massive MS.? Has been experiencing chest pain/pressure over the last week, with exertion, not across her chest, with relief from nitroglycerin, previously only with exertion, however, this morning was woken up by chest pressure and was experiencing it at rest as well.? Took nitroglycerin with mostly relief of symptoms but does have residual chest pressure.? In ER troponin with minimal elevation 9-12.88.? EKG with now also new ST depression. 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 Continued on NSTEMI protocol. Was assessed by cardiology. On coronary angiography found to have severe stenosis of RCA and underwent PCI with stenting. Continue aspirin and Plavix for at least 1 year. She is doing well this morning, chest pain-free, requested discharge home she may continue to care for her ill . For UTI could not be started on Rocephin due to reported penicillin allergy with oral swelling. Gram-negative rods growing in urine. Initially given prescription for Bactrim, however, notified from pharmacy that she is also allergic to sulfa. Added sulfa to allergy list. And given prescription for nitrofurantoin. Please consider antibiotic allergy testing given reported severe allergies to multiple classes of antibiotics. TTE ?LV systolic function is normal with EF of 55-60% ?Grade 1 diastolic dysfunction ?Moderate aortic regurgitation ?Mild tricuspid regurgitation. Mild pulmonary hypertension ?No comparison studies are available Physical Exam Const: COMMON NORMALS: patient oriented x3 and alert GENERAL APPEARANCE: cooperative ORIENTATION/CONSCIOUSNESS: Yes awake HENMT: COMMON NORMALS: oropharynx normal Neck/C-Spine: COMMON NORMALS: no JVD Resp: COMMON NORMALS: normal respiratory effort and clear to auscultation bilaterally AUSCULTATION: clear to auscultation bilaterally Cardio: COMMON NORMALS: no JVD, regular rhythm, S1 normal heart sound present, S2 normal heart sound present and No murmurs present (Cardio) RHYTHM: regular rhythm HEART SOUNDS: S1 normal heart sound present and S2 normal heart sound present GI: COMMON NORMALS: Normal to inspection, nondistended, normoactive bowel sounds present, Soft to palpation and non-tender PALPATION: Yes Soft to palpation Extremity: COMMON NORMALS: no joint enlargement and no pedal edema OTHER: Left wrist dressing in place without swelling or bruising. No issues with her hand. Instructed on post angiography precautions. Neuro: COMMON NORMALS: patient oriented x3 and moves all extremities SENSORIUM/ORIENTATION: Yes alert Skin: COMMON NORMALS: no rashes or lesions noted GENERAL SKIN EXAM: no rashes or lesions noted Discharge Data Studies Completed and Pending Completed Studies During Hospitalization Category Date Time Status XR chest 1V portable [id number] Stat Exams 06/14/22 10:06 Completed CV. echo complete* [id number] Routine Ultrasound 06/14/22 18:57 Completed Pending at discharge Category Date Time Status INSURANCE VERIFICATION REPRESENTATIVE request for service Routine Exams 06/15/22 07:01 Ordered Radiology Impressions Chest X-Ray 06/14/22 10:06 IMPRESSION: No acute cardiopulmonary abnormality identified. Laboratory Results WBC 8.4 10^3/uL (4.0-10.0) 06/15/22 03:28 RBC 3.92 10^6/uL (4.1-5.3) L 06/15/22 03:28 Hgb 12.3 g/dL (11.5-15.3) 06/15/22 03:28 Hct 37.4 % (37.0-47.0) 06/15/22 03:28 MCV 95.4 fl (81-99) 06/15/22 03:28 MCH 31.4 pg (28.0-34.0) 06/15/22 03:28 MCHC 32.9 g/dL (30.0-36.0) 06/15/22 03:28 RDW 12.3 % (12.1-15.1) 06/15/22 03:28 Plt Count 391 10^3/cmm (130-400) 06/15/22 03:28 MPV 8.9 fL (7.4-10.4) 06/15/22 03:28 Neut % (Auto) 47.6 % 06/15/22 03:28 Lymph % (Auto) 42.3 % 06/15/22 03:28 [place] % (Auto) 6.7 % 06/15/22 03:28 Eos % (Auto) 2.6 % 06/15/22 03:28 Baso % (Auto) 0.4 % 06/15/22 03:28 Neut # (Auto) 3.99 10^3/uL (1.8-7.7) 06/15/22 03:28 Lymph # (Auto) 3.5 10^3/uL (0.8-4.8) 06/15/22 03:28 [place] # (Auto) 0.6 10^3/uL (0.2-0.9) 06/15/22 03:28 Eos # (Auto) 0.2 10^3/uL (0.0-0.8) 06/15/22 03:28 Baso # (Auto) 0.0 10^3/uL (0.0-0.1) 06/15/22 03:28 Nucleated RBC % (auto) 0 % 06/15/22 03:28 Nucleated RBCs # 0.0 /100WBC 06/15/22 03:28 PT 13.80 SECONDS (12.1-14.9) 06/14/22 10:44 INR 1.03 (0.8-1.2) 06/14/22 10:44 APTT 29.1 SECONDS (23.9-36.7) 06/14/22 10:44 Sodium 138 mmol/L (136-145) 06/16/22 04:55 Potassium 4.3 mmol/L (3.5-5.1) 06/16/22 04:55 Chloride 105 mmol/L (98-107) 06/16/22 04:55 Carbon Dioxide 26 mmol/L (22-29) 06/16/22 04:55 Anion Gap 11.3 (5-19) 06/16/22 04:55 BUN 8 mg/dL (8-23) 06/16/22 04:55 Creatinine 0.6 mg/dL (0.5-0.9) 06/16/22 04:55 GFR Calculation 101.3 mL/min (90-130) 06/16/22 04:55 Glucose 150 mg/dL (65-115) H 06/16/22 04:55 POC Glucose 133 mg/dL (70-110) H 06/16/22 06:34 Calculated Osmolality 287 mOsm/kg (285-295) 06/16/22 04:55 Calcium 9.2 mg/dL (8.5-10.5) 06/16/22 04:55 Total Bilirubin 0.6 mg/dL (0.15-1.2) 06/14/22 10:44 AST 25 U/L (0-32) 06/14/22 10:44 ALT 35 U/L (0-33) H 06/14/22 10:44 Alkaline Phosphatase 83 U/L (35-105) 06/14/22 10:44 Troponin T Baseline 9 ng/L (0-10) 06/14/22 10:44 Troponin T 120 Minute 12.88 ng/L (0-10) H 06/14/22 12:50 Delta Troponin T 3.88 ABS# (0-10) 06/14/22 12:50 Troponin T Hi Sens 6Hr 10.50 ng/L (0-10) H 06/14/22 16:19 Troponin T Hi Sens 6Hr Delta 1.50 ng/L (0-12) 06/14/22 16:19 Total Protein 7.8 g/dL (6.6-8.7) 06/14/22 10:44 Albumin 4.0 g/dL (3.5-5.2) 06/14/22 10:44 Globulin 3.8 g/dL (1.3-4.6) 06/14/22 10:44 Urine Color Yellow (Yellow) 06/14/22 11:13 Urine Appearance Hazy (CLEAR) A 06/14/22 11:13 Urine pH 6 (5-7) 06/14/22 11:13 Ur Specific [place] 1.020 (1.005-1.030) 06/14/22 11:13 Urine Protein Neg (Negative) 06/14/22 11:13 Urine Glucose (UA) Norm (Normal) 06/14/22 11:13 Urine Ketones Negative (Negative) 06/14/22 11:13 Urine Blood Neg (Negative) 06/14/22 11:13 Urine Nitrate Positive (Negative) H 06/14/22 11:13 Urine Bilirubin Neg (Negative) 06/14/22 11:13 Urine Urobilinogen 1 mg/dL (Negative) H 06/14/22 11:13 Ur Leukocyte Esterase Negative (Negative) 06/14/22 11:13 Urine RBC Rare /hpf (0-2) 06/14/22 11:13 Urine WBC 5-10 /hpf (0-5) H 06/14/22 11:13 Ur Squamous Epith Cells 0-4 /hpf (0-5) H 06/14/22 11:13 Amorphous Sediment Not Reportable 06/14/22 11:13 Urine Bacteria 4+ /hpf (NONE) H 06/14/22 11:13 Vitals Last Vital Signs Temp 99.0 F 06/16/22 07:07 Pulse 86 06/16/22 08:40 Resp 16 06/16/22 08:00 BP 120/76 06/16/22 08:40 Pulse Ox 96 06/16/22 08:00 O2 Del Method 06/16/22 08:00 Discharge Plan Discharge Patient Disposition: Home Condition: Stable Prescriptions: New aspirin 81 mg capsule 81 mg PO DAILY Qty: 14 0RF clopidogrel 75 mg Tablet 75 mg PO DAILY Qty: 90 0RF Macrobid 100 mg capsule 100 mg PO BID 5 Days Qty: 10 0RF Rx Instructions: must administer with a meal/food Continued nitroglycerin [Nitrostat] 0.4 mg tablet, sublingual 0.4 mg SUBLINGUAL Q5M PRN (Reason: Chest Pain) Qty: 20 2RF metoprolol succinate 25 mg tablet extended release 24 hr 12.5 mg PO BID Qty: 90 1RF atorvastatin 40 mg tablet 40 mg PO DAILY Qty: 90 1RF isosorbide mononitrate 30 mg tablet extended release 24 hr 30 mg PO BEDTIME Qty: 90 1RF glipizide 10 mg tablet extended release 24hr 10 mg PO QAM Qty: 90 1RF diphenhydramine HCl [Benadryl] 25 mg Capsule 25 mg PO Q8H PRN (Reason: Allergy Symptoms) albuterol sulfate [ProAir HFA] 90 mcg/actuation Hfa Aerosol Inhaler 2 puff INHALATION QID PRN (Reason: Shortness Of Breath) ascorbic acid (vitamin C) [Vitamin C] 500 mg Tablet 500 mg PO DAILY Vitamin B-12 100 mcg Tablet 100 mcg PO DAILY Vitamin D3 50 mcg (2,000 unit) Capsule 50 mcg PO DAILY melatonin 10 mg Tablet 20 mg PO BEDTIME famotidine 10 mg tablet 10 mg PO BID PRN (Reason: Acid Reflux) gabapentin 300 mg capsule 300 mg PO TID Discharge Orders: Discharge Order (Routine); Ordered 06/16/22 Ordered By: Óscar Lozano Referrals: Frank Smith DO [Primary Care Provider] - 06/20/22 2:30 pm ([facility] has scheduled an appointmen for you with Dr. Smith on 06/20/2022 at 2:30. If you have any questions, please call [phone].) Gabriella Vilchis FNP [Nurse Practitioner] - 1 week ([facility] [place] will call you with-in a few days to schedule an appointment to see Gabriella Vilchis. If you have any questions, please call [phone].) Kiersten Rehman MD [Physician] - 1 month ([facility] will schedule an appointment with Dr. Rehman when you are there to see Gabriella Vilchis. If you have any questions, please call [phone].) Discharge Diet: Cardiac Discharge Activity: Increase activity as tolerated and Limit activity as instructed Patient Instructions: Sulfamethoxazole/Trimethoprim (By mouth), Aspirin (By mouth), Clopidogrel (By mouth), Coronary Angioplasty (DC), How to Stop Smoking (GEN), Urinary Tract Infection in Women (GEN), Cigarette Smoking and Your Health (GEN), COPD Stoplight, Opioid Safety, Post Angiogram Home Care Instructions, Pain Management Activity Restrictions/Additional Instructions: Continue aspirin and plavix for atleast 1 year Stop smoking Follow-up with your primary doctor for allergy testing for antibiotics including penicillin Follow-up with your primary doctor regarding UTI. Urine culture still pending. Discharge Attestations Time Spent in Discharge Care*: greater than 30 min Quality Metrics Clinical Quality Measures [ No reported AMI, CVA or VTE this stay] Coding Level of Care Code Acute Chg FW DC note Diagnoses Unstable angina I20.0 HTN (hypertension) with goal to be determined I10 Mixed dyslipidemia E78.2 Type 2 diabetes mellitus without complication, with no history of insulin use E11.9
== END 2022-06-16 11:05 | disposition home or self-care (01) | DRG 247 ==
LOC: ER 15:39 → CSU 17:54
PROVIDERS: Internal Medicine; Nurse Practitioner Family; Admitting Provider Internal Medicine; Emergency Provider Family Medicine; PCP Family Medicine; Visit Provider Internal Medicine
PROC: 027034Z Dilation of Coronary Artery, One Artery with Drug-eluting Intraluminal Device, Percutaneous Approach (ICD-10-PCS; principal; 2022-06-15 07:00)
PROC: 027034Z Dilation of Coronary Artery, One Artery with Drug-eluting Intraluminal Device, Percutaneous Approach (ICD-10-PCS; 2022-06-15 07:00)
DX: I25.110 Atherosclerotic heart disease of native coronary artery with unstable angina pectoris (principal); N39.0 Urinary tract infection, site not specified; Z98.61 Coronary angioplasty status; F17.210 Nicotine dependence, cigarettes, uncomplicated; I10 Essential (primary) hypertension; E11.9 Type 2 diabetes mellitus without complications; Z82.49 Family history of ischemic heart disease and other diseases of the circulatory system; Z88.5 Allergy status to narcotic agent; Z88.0 Allergy status to penicillin; F32.A Depression, unspecified; I25.2 Old myocardial infarction; E78.2 Mixed hyperlipidemia; Z79.84 Long term (current) use of oral hypoglycemic drugs; Z79.51 Long term (current) use of inhaled steroids
CPT/HCPCS: 36415; 36416; 71045; 80048; 80053; 81001; 82962; 84484; 85025; 85347; 85610; 85730; 87077; 87086; 87186; 93005; 93306; 93454; 93571; 96372; 99152; 99153; 99285; C1725; C1769; C1874; C1887; C1894; C9600; G0378; J0696; J1200; J1644; J1650; J1815; J2250; J3010; J3490; J7030; Q9967

== ENCOUNTER 2022-06-29 08:44 | Outpatient (CLI) | payer BC, SELFPAY ==
[2022-06-29 09:52] LABS: Blood Urea Nitrogen 7 mg/dL (8-23); Carbon Dioxide 26 mmol/L (22-29); Chloride 102 mmol/L (98-107); Glucose 156 mg/dL (65-115); Osmolality Calculated 289 mOsm/kg (285-295); Sodium 139 mmol/L (136-145)
[2022-06-29 09:53] LABS: Anion Gap 15.2 (5-19); Potassium 4.2 mmol/L (3.5-5.1)
== END 2022-06-29 08:45 | disposition home or self-care (01) ==
PROVIDERS: PCP Family Medicine; Visit Provider Nurse Practitioner Family
DX: I25.10 Atherosclerotic heart disease of native coronary artery without angina pectoris (principal)
CPT/HCPCS: 36415; 80048

== ENCOUNTER 2022-07-11 10:01 | Outpatient (CLI) | payer BC, SELFPAY ==
--- NOTE | 2022-07-11 10:15 | USCV_ITS ---
Yessi Schulte Age: 62 Gender: F : 1960 Exam Date: 07/11/2022 10:21 Ordering Phys: Gabriella Vilchis Technologist: CT Exam Location: [facility] [place]_ Indication: claudication Risk Factors: Previous Vascular Surgery: RIGHT LEFT BP: 112.0 / 66.00 BP: 110.0/ 65.00 0 0 Waveform Velocity (cm/s) Velocity (cm/s) Waveform Triphasic 116.1 Iliac Prox 85.4 Triphasic Triphasic 101.9 Iliac Mid 82.0 Triphasic Triphasic Iliac Distal Triphasic 118.6 91.7 Triphasic 78.8 VISUAL MERCHANDISER 80.2 Triphasic Triphasic 71.0 SFA Prox 85.9 Triphasic Triphasic 71.5 SFA Mid 73.0 Triphasic Triphasic 68.7 SFA Dist 70.8 Triphasic Triphasic 47.8 POP 58.1 Triphasic Biphasic 48.4 AEROSPACE TECHNICIAN 46.2 Biphasic Biphasic 51.6 DPA 75.5 Biphasic 1.1 JEAN PAUL 1.0 FINDINGS Resting JEAN PAUL of 1.1 on the right and 1.0 on the left. Normal arterial Doppler waveforms and velocities bilaterally No unstable plaques or lesions in the above-mentioned blood vessels based on the duplex lamination CONCLUSIONS Normal resting ABIs bilaterally No significant arterial obstruction, based on the above finding Dr Hernan Coffman MD [facility] (Electronically Signed) Final Date: 11 July 2022 17:35 S
== END 2022-07-11 10:02 | disposition home or self-care (01) ==
LOC: RAD 10:04
PROVIDERS: PCP Family Medicine; Visit Provider Nurse Practitioner Family
DX: I73.9 Peripheral vascular disease, unspecified (principal)
CPT/HCPCS: 93925

== ENCOUNTER → 2022-08-13 14:47 | Outpatient (BNVA) | payer BC, SELFPAY | PROVIDERS: PCP Family Medicine; Visit Provider Family Medicine | DX: N39.0 Urinary tract infection, site not specified (principal) | CPT/HCPCS: 81000 ==

== ENCOUNTER 2022-09-06 09:53 | Observation (INO) | payer BC, SELFPAY ==
[2022-09-06] VITALS (27 sets, daily range): BP systolic 110–191; BP diastolic 65–105; PULSE 67–92; RESP 14–25; TEMP 36.5–37; O2SAT 92–99; BMI 22.6
--- NOTE | 2022-09-06 10:09 | XR_ITS ---
WS: [id number] EXAMINATION: XR chest 1V portable [id number] REASON FOR EXAM: chest pain COMPARISON: 06/14/2022 ORDER DATE: 09/06/2022 10:09 AM TECHNIQUE: A single, portable frontal chest x-ray was obtained. X-RAY FINDINGS: Surgical clips overlying the lower mediastinum in the region of the gastroesophageal junction. Lungs: The lung parenchyma is clear of infiltrate. Near the cardiac apex there is a possible noncalci fied ovoid nodule approximately 7 x 15 mm in outline and was not present on the prior study. Pleural spaces: No pneumothorax. No pleural effusion. Heart/Mediastinum: The cardiomediastinal silhouette is within normal limits. Bones/joints: Cervical spinal fixation hardware noted. Post vertebroplasty changes noted in the lower thoracic spine. XR/XR chest 1V portable [id number] IMPRESSION: Possible new pulmonary nodule left lung base recommend additional imaging evalu ation
--- NOTE | 2022-09-06 10:11 | ECG_ITS ---
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 Measurements Intervals [place] Rate: 68 P: 86 TN: 106 QRS: -4 QRSD: 76 T: -29 QT: 365 QTc: 389 Interpretive Statements SINUS RHYTHM WITH SHORT TN INTERVAL LOW QRS VOLTAGE IN PRECORDIAL LEADS [QRS DEFLECTION < 1.0 mV IN CHEST LEADS] SEPTAL MYOCARDIAL INFARCTION , OF INDETERMINATE AGE [40+ ms Q WAVE IN V1/V2] Compared to ECG 06/14/2022 16:12:34 Short TN interval now present Low QRS voltage now present Myocardial infarct finding now present T-wave abnormality no longer present Electronically Signed On 09-06-2022 21:04:51 CDT by Hernan Coffman M.D. [id number]
--- NOTE | 2022-09-06 10:32 | ED_ITS ---
HPI - Chest Pain General: Chief Complaint: Chest Pain Stated Complaint: chest pain, heart pt Time Seen by Provider: 09/06/22 09:58 Source: patient Mode of arrival: ambulatory History of Present Illness: 59-year-old female with substernal chest pain rating into her back. She reports initially it is a 10 of 10. Patient has a known history of coronary disease had acute myocardial infarction May 2022 with radiation to her arms and back. At the time of myocardial infarction in May patient had a single RCA stent placed. Last few days she has had a lot of nausea and vomiting. She has a Doppler abdominal discomfort and has stopped taking her Plavix and her other medications. In May and she presented she had a component of abdominal pain as well. Initial EKG shows significant inferior ST depression. MD complaint: chest pain Onset (ago): minute(s) Timing of current episode: episodic Prior episodes: Yes Onset: during rest Pain location: left chest Pain radiation: right arm and back Severity: moderate Quality: aching and heaviness Relieving factors: nothing Exacerbating factors: nothing Associated symptoms: Deny abdominal pain, diaphoresis, dyspnea, fever(s), leg edema, nausea, palpitations, sense of impending doom, syncope or vomiting Review of Systems Const: Denies: fever(s), chills, fatigue, malaise or diaphoresis ENMT: Denies: throat pain, ear or mastoid pain, nasal discharge or nasal congestion Card: Reports: chest pain; Denies: palpitations, irregular heart rhythm, edema, swelling of feet/ankles or syncope Resp: Denies: dyspnea GI: Denies: abdominal pain, nausea or vomiting : Denies: flank pain, difficulty voiding, dysuria, urinary frequency or urinary urgency Skin/Breast: Denies: rash or pruritus PFSH ED PFSH: Medical History Atherosclerosis of coronary artery Claudication Cough Depression Essential hypertension Fatigue Generalized body aches HTN (hypertension) with goal to be determined Myocardial infarction acute 09/2019 Neutrophilic leukocytosis Pancreatitis SBO (small bowel obstruction) Shortness of breath Type 2 diabetes mellitus without complication, with no history of insulin use Surgical History H/O exploratory laparotomy Multiple bowel resections History of 3 sections History of appendectomy History of incisional hernia repair S/P cardiac cath S/P cholecystectomy S/P DONNA-BSO Status post colonoscopy Family History Mother Cancer, Onset Age: 60 Double mastectomy Sister Cancer, Onset Age: 53 double mastectomy Sister Cancer, Onset Age: 52 partial mastectomy Social History Smoking and tobacco status: current every day smoker cigarettes [ Other cigarette details: On and off ] Alcohol intake: current Alcohol intake frequency: holidays/special occasions only Female Reproductive History: Spontaneous abortions: No Physical Exam Const: GENERAL APPEARANCE: cooperative and comfortable ORIENTAT ION/CONSCIOUSNESS: Yes awake, Yes oriented to person, Yes oriented to place and Yes oriented to time HENMT: COMMON NORMALS: normocephalic, atraumatic and hearing grossly normal bilaterally HEAD & SCALP: normocephalic and atraumatic Resp: COMMON NORMALS: normal respiratory effort, No retractions, No use of accessory muscles and clear to auscultation bilaterally AUSCULTATION: clear to auscultation bilaterally Cardio: COMMON NORMALS: regular rate, regular rhythm and No murmurs present (Cardio) RATE: regular rate RHYTHM: regular rhythm GI: COMMON NORMALS: Soft to palpation and No hepatosplenomegaly present AUSCULTATION: Yes normoactive bowel sounds PALPATION: Yes Soft to palpation, No Tenderness to palpation present (GI), No Guarding due to palpation present (GI) and Yes No hepatosplenomegaly present Extremity: COMMON NORMALS: normal to inspection, capillary refill normal, no clubbing, cyanosis or edema, no calf tenderness and no pedal edema Neuro: SENSORIUM/ORIENTATION: Yes oriented to person, Yes oriented to place and Yes oriented to time Skin: COMMON NORMALS: no rashes or lesions noted GENERAL SKIN EXAM: no rashes or lesions noted Course Vital Signs: Vital signs: Vital Signs Temperature 98.1 F 09/07/22 05:30 Pulse Rate 70 09/07/22 12:29 Respiratory Rate 18 09/07/22 12:29 Blood Pressure 121/74 09/07/22 12:29 Pulse Oximetry 92 09/07/22 12:29 Oxygen Delivery Me thod Room Air 09/07/22 08:09 MDM - Chest Pain Medical Decision Making Not taking her medications last few days is particularly concerning given the recent stent. She has inferior lead ST depression but no ST elevation. Because of the significant ST depression and not having taken her meds last [address] Thrasher early on in the ER course she has seen the patient he is concerned about her level of symptoms as well. And feels it would be appropriate to take her to [facility]. [facility] abdomen was unremarkable for bowel obstruction Medical Records I reviewed the patient's medical records. Lab Data I reviewed the patient's lab results. 09/07/22 03:08 09/07/22 03:08 Radiology Impressions Chest X-Ray 09/06/22 10:09 IMPRESSION: Possible new pulmonary nodule left lung base recommend additional imaging evaluation Abdomen/Pelvis CT 09/06/22 10:54 IMPRESSION: 1. No acute abdominal or pelvic findings 2. Prominent disc protrusion L4-L5 present in 2021 but slightly progressed. Res ults in moderate central canal stenosis with impingement on the traversing RIGHT greater than LEFT L5 nerve roots. This can be followed up with MRI. Chest CTA 09/06/22 18:05 IMPRESSION: 1. Negative for pulmonary embolus or aortic dissection. 2. Hepatic steatosis. 3. Cholecystectomy. 4. Ascending thoracic aorta mildly prominent at 3.3 cm. 5. Bibasilar atelectasis. 6. T12 vertebroplasty changes. 7. Coronary artery atherosclerotic calcifications. 8. Emphysematous changes. COMMENTS: In the absence of a history or active diagnosis of lung cancer, it is recommended that this patient with emphysema be evaluated for enrollment in a low dose CT lung cancer screening program. Laboratory Results WBC 9.1 10^3/uL (4.0-10.0) 09/06/22 10:57 RBC 3.82 10^6/uL (4.1-5.3) L 09/06/22 10:57 Hgb 11.7 g/dL (11.5-15.3) 09/06/22 10:57 Hct 35.4 % (37.0-47.0) L 09/06/22 10:57 MCV 92.7 fl (81-99) 09/06/22 10:57 MCH 30.6 pg (28.0-34.0) 09/06/22 10:57 MCHC 33.1 g/dL (30.0-36.0) 09/06/22 10:57 RDW 12.5 % (12.1-15.1) 09/06/22 10:57 Plt Count 377 10^3/cmm (130-400) 09/06/22 10:57 MPV 8.6 fL (7.4-10.4) 09/06/22 10:57 Neut % (Auto) 69.7 % 09/06/22 10:57 Lymph % (Auto) 25.3 % 09/06/22 10:57 [place] % (Auto) 4.0 % 09/06/22 10:57 Eos % (Auto) 0.6 % 09/06/22 10:57 Baso % (Auto) 0.1 % 09/06/22 10:57 Neut # (Auto) 6.34 10^3/uL (1.8-7.7) 09/06/22 10:57 Lymph # (Auto) 2.3 10^3/uL (0.8-4.8) 09/06/22 10:57 [place] # (Auto) 0.4 10^3/uL (0.2-0.9) 09/06/22 10:57 Eos # (Auto) 0.1 10^3/uL (0.0-0.8) 09/06/22 10:57 Baso # (Auto) 0.0 10^3/uL (0.0-0.1) 09/06/22 10:57 Nucleated RBC % (auto) 0 % 09/06/22 10:57 Nucleated RBCs # 0.0 /100WBC 09/06/22 10:57 Sodium 139 mmol/L (136-145) 09/06/22 10:57 Potassium 3.8 mmol/L (3.5-5.1) 09/06/22 10:57 Chloride 104 mmol/L (98-107) 09/06/22 10:57 Carbon Dioxide 23 mmol/L (22-29) 09/06/22 10:57 Anion Gap 15.8 (5-19) 09/06/22 10:57 BUN 10 mg/dL (8-23) 09/06/22 10:57 Creatinine 0.6 mg/dL (0.5-0.9) 09/06/22 10:57 GFR Calculation 101.0 mL/min (90-130) 09/06/22 10:57 Glucose 137 mg/dL (65-115) H 09/06/22 10:57 Calculated Osmolality 289 mOsm/kg (285-295) 09/06/22 10:57 Lactate 1.4 mmol/L (0.5-2.2) 09/06/22 10:57 Calcium 8.8 mg/dL (8.5-10.5) 09/06/22 10:57 Total Bilirubin 0.7 mg/dL (0.15-1.2) 09/06/22 10:57 AST 19 U/L (0-32) 09/06/22 10:57 ALT 33 U/L (0-33) 09/06/22 10:57 Alkaline Phosphatase 59 U/L (35-105) 09/06/22 10:57 Troponin T Baseline 24 ng/L (0-10) H 09/06/22 10:57 Total Protein 6.7 g/dL (6.6-8.7) 09/06/22 10:57 Albumin 4.0 g/dL (3.5-5.2) 09/06/22 10:57 Globulin 2.7 g/dL (1.3-4.6) 09/06/22 10:57 Serum Ketones Negative (Negative) 09/06/22 10:57 Discharge Plan Discharge Patient Disposition: Admitted As Inpatient Admit Provider: Tanvir Thrasher Clinical Impression: Unstable angina pectoris Condition: Stable Discharge Diet: As Directed Coding Level of Care Code ED Cigar Packer And Sorter for Sonya Patrick
[2022-09-06] MEDS: nitroglycerin 1 gm/inch oint Pkt 1 INCH TOPICAL (10:45)
[2022-09-06] MEDS: ondansetron 2 mg/ML SDV 2 mL 4 MG IVP ×2 (10:52→18:40)
--- NOTE | 2022-09-06 10:54 | CT_ITS ---
WS: [id number] CT ABDOMEN PELVIS TECHNIQUE: Noncontrast CT of the abdomen and pelvis with coronal and sagittal reformatted images. CLINICAL INFORMATION: Abdominal pain COMPARISON: June 21, 2021 DLP: 346.[address] scans at [facility] [place] use at least one of these dose optimization techniques: automated e xposure control; mA and/or kV adjustment per patient size (includes targeted exams where dose is matc hed to clinical indication); or iterative reconstruction. FINDINGS: Prior cholecystectomy and appendectomy. Prior hysterectomy. Prior kyphoplasty changes at T12. Lung ba ses are well aerated. Adrenal glands are normal. Noncontrast liver and spleen are normal. Fatty atrop hy of the pancreas. Mild aortic calcification. Adrenal glands are normal. No hydronephrosis in either kidney. No obstructing renal or ureteral calcu li. Normal sigmoid colon. No evidence of small large bowel obstruction. No free fluid in the abdomen or p ousmane. Disc protrusion L4-L5 described below. CT/CT abdomen pelvis wo con [id number] IMPRESSION: 1. No acute abdominal or pelvic findings 2. Prominent disc protrusion L4-L5 present in 2021 but slightly progressed. Re sults in moderate central canal stenosis with impingement on the traversing RIG HT greater than LEFT L5 nerve roots. This can be followed up with MRI.
[2022-09-06] MEDS: aspirin 81 mg Chew Tablet 324 MG PO (10:59)
[2022-09-06] MEDS: clopidogrel 300 mg Tablet PO (11:01)
[2022-09-06] MEDS: heparin 5,000 unit/mL INJ 1 mL IV (11:03)
[2022-09-06 11:05] LABS: Basophils % 0.1 %; Eosinophils # 0.1 10^3/uL (0.0-0.8); Eosinophils % 0.6 %; Hematocrit 35.4 % (37.0-47.0); Hemoglobin 11.7 g/dL (11.5-15.3); Lymphocytes # 2.3 10^3/uL (0.8-4.8); Lymphocytes % 25.3 %; Mean Corpuscular HGB Conc 33.1 g/dL (30.0-36.0); Mean Corpuscular Hemoglobin 30.6 pg (28.0-34.0); Mean Corpuscular Volume 92.7 fl (81-99); Mean Platelet Volume 8.6 fL (7.4-10.4); Monocytes # 0.4 10^3/uL (0.2-0.9); Neutrophils # 6.34 10^3/uL (1.8-7.7); Neutrophils % 69.7 %; Nucleated Red Blood Cells % 0 %; Platelet Count 377 10^3/cmm (130-400); Red Blood Count 3.82 10^6/uL (4.1-5.3); Red Cell Distribution Width 12.5 % (12.1-15.1); White Blood Count 9.1 10^3/uL (4.0-10.0)
[2022-09-06] MEDS: heparin drip 25,000 UNIT/500 ML PREMIX 15 UNIT IV (11:09)
[2022-09-06 11:29] LABS: Alanine Aminotransferase 33 U/L (0-33); Alkaline Phosphatase 59 U/L (35-105); Anion Gap 15.8 (5-19); Aspartate Amino Transferase 19 U/L (0-32); Blood Urea Nitrogen 10 mg/dL (8-23); Calcium 8.8 mg/dL (8.5-10.5); Carbon Dioxide 23 mmol/L (22-29); Chloride 104 mmol/L (98-107); Globulin 2.7 g/dL (1.3-4.6); Glucose 137 mg/dL (65-115); Osmolality Calculated 289 mOsm/kg (285-295); Potassium 3.8 mmol/L (3.5-5.1); Sodium 139 mmol/L (136-145); Total Bilirubin 0.7 mg/dL (0.15-1.2); Total Protein 6.7 g/dL (6.6-8.7)
[2022-09-06 11:31] LABS: Troponin(5th) Baseline 24 ng/L (0-10)
--- NOTE | 2022-09-06 11:48 | ECG_ITS ---
[facility] Test Date: 2022-09-06 Pat Name: Yessi Schulte Department: Room: Gender: Female [place] Lead: : 1960 Requested By: Uriel Figueroa Order Number: [id number] Gen MD: Hernan Coffman M.D. Measurements Intervals [place] Rate: 77 P: 69 NM: 163 QRS: 67 QRSD: 79 T: 40 QT: 384 QTc: 435 Interpretive Statements SINUS RHYTHM LOW QRS VOLTAGE IN PRECORDIAL LEADS [QRS DEFLECTION < 1.0 mV IN CHEST LEADS] ST DEVIATION AND MODERATE T-WAVE ABNORMALITY, CONSIDER ANTEROLATERAL ISCHEMIA [-0.1+ mV T-WAVE IN V3-V6] Compared to ECG 09/06/2022 10:03:48 T-wave abnormality now present Possible ischemia now present Short NM interval no longer present Myocardial infarct finding no longer present Electronically Signed On 09-06-2022 21:12:13 CDT by Hernan Coffman M.D. [email or web address]
[2022-09-06] MEDS: HYDROmorphone 1 mg/mL INJ 1 mL 0.5 MG IVP (11:58)
[2022-09-06] MEDS: nitroglycerin drip 50 MG/250 ML PREMIX IV (11:58)
--- NOTE | 2022-09-06 12:05 | XACV_ITS ---
Exam Room: [facility] Ht: 155 cm Wt: 54 kg BSA: 1.54 m2 Gender: Female : 1960 Any Known Allergies: Morphine Exam Priority: Routine Procedure(s): Procedure Description: Diagnostic procedure Procedure Description: Left Heart Catheterization Procedure Description: Left ventriculography Procedure Description: Coronary Angiography Diagnostic Cath Status: Urgent Diagnostic Findings * Left Main has no significant disease. * Circumflex has no significant disease. * Right Coronary Artery has patent prior stents. * INDICATION: 62 year old female with past medical history of CAD, hypertension, smoking, diabetes who recently underwent successful revascularization of RCA with CHASE x1 and had IFR of LAD that was nonischemic has presented to hospital with abdominal and chest pain. According to patient she has not been taking her medications including aspirin and Plavix for the last 2 days as she was nauseous and felt that she has bowel obstruction. States today started having chest pain. It was substernal and radiating to the right arm. Initial EKG demonstrated significant ST depressions in inferior leads. Concern for unstable angina. * Proximal Left Anterior Descending: mild 40% stenosis, ROSAMARIA: 3 flow. * Coronary angiography shows right dominance. Conclusions 1. Patent prior RCA stents. Otherwise non-obstructive CAD. 2. Hyperdynamic left ventricular systolic function. Ejection fraction of 70%. Recommendations * Aggressive risk factor modification. * Outpatient cardiology follow up in 4 weeks. * Will consult hospitalist team for further GI workup. Interventional RX Recommendation: medical therapy and/or counseling Diagnostic RX Recommendation: medical therapy and/or counseling Anticoagulation: Heparin Ventriculography Ejection Fraction: 70.0 % Pressures Phase:Rest AO : 108 / 87 ( 98 ) @ 1:43:00 PM 236 / 53 ( 372 ) @ 1:49:00 PM 123 / 60 ( 87 ) @ 1:51:00 PM LV : 143 / -14 / 13 @ 1:50:00 PM 138 / -21 / 5 @ 1:51:00 PM 135 / -17 / 6 @ 1:51:00 PM Valves Phase:DefaultPhase AV : 13.0 @ 1:05:04 PM AV Mean Gradient: 25.0 @ 1:05:04 PM 25.0 @ 1:05:04 PM Clinical Evaluation EBL: 5mL-10mL Procedural Details Procedure Consent Obtained. Pre-Procedure Time Out. Identified patient by full name and date of as verbalized by the patient/guarantor. Does the consent match the physician's order: Yes. Accurate & Complete Informed Consent: Yes. Inpatient/Outpatient History & Physical on Chart: Yes. If H&P is completed, is and addenduem needed: Yes; If yes, is the addendum complete: Yes. Visualize and Verify Site with Patient/Guarantor: N/A. Relevant Radiology Images available: N/A. The risks, benefits, and alternatives of sedation and/or procedure were discussed by physician. The patient agrees to continue. Procedure started. [facility] Clinical Fraility Score: 3: Managing Well. 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 Chest Pain Symptom Assessment: Typical Angina Symptoms. Cardiovascular Instability: No. Correct patient, site and procedure confirmed by cath team. PERRLA. Strong, equal hand insulation technician bilaterally. Lungs clear x 5 lobes. IV Site on Arrival: 18 gauge in the left upper arm. IV Fluids: 0.9% NaCl at KVO. 0 mL infused prior to cardiac cath lab manager. Pre Procedural Pulses: bilateral dorsalis pedis was 3+. Pre Procedural Pulses: bilateral posterior tibial was 3+. Pre Procedural Pulses: bilateral radial was 3+. Oxygen started at 2liters/min via nasal canula. right groin was prepped with chloroprep then draped in the usual sterile fashion. right radial was prepped with chloroprep then draped in the usual sterile fashion. Physician notified. Baseline sample Acquired. HR: 90 BPM. Patient's spouse is in the cardiac cath lab manager waiting room. Equipment: 6F - Radial. Cardiac Cath Pack. ACIST Manifold Kit Model BT 2000. Heparinized Saline (2 units/mL), 1000 mL bag. Physician arrived. Physician scrubbed in. Immediate Pre-Procedure Time Out. Correct Patient: Yes; Correct Procedure: Yes; Correct Site: Yes; Correct Patient Position: Yes; Correct Supplies: Yes; Dried Flammable Prep: Yes; Blood Products Available: N/A;. Arterial access obtained. A 5 spanish TIG catheter in over the exchange J wire. Multiple views taken of left coronary artery. Catheter removed over the exchange J wire. 6 spanish JR 4 guide catheter was inserted over the exchange J wire. Nitro gtt off. Multiple views taken of right coronary artery. Guide cath out over the exchange J wire. A 5 spanish Angled Pig catheter in over the exchange J wire. EDP Sample taken: LV 143/-15,13; HR: 99 BPM; SpO2: 93%. LV gram performed in MONTANEZ @ 10 mL/second for a total of 30 mL. EDP Sample taken: LV 138/-22,5; HR: 99 BPM; SpO2: 97%. Pullback taken: LV 135/-18,6; AO 123/60(87); Mean: 25mmHg, Peak to Peak: 13mmHg, SEP: 10sec/min; HR: 97 BPM; SpO2: 96%. Catheter removed over the exchange J wire. Dr. Thrasher scrubbed out. Spouse updated by Dr. Thrasher. A TR Band was successful obtaining hemostatsis at the Right Radial artery insertion site. TR band placed. Hemostasis obtained. Post Procedure: Pulses reassessed and unchanged. PERRLA. Strong, equal hand insulation technician bilaterally. No VTE prophylaxis required. Medication's Wasted: Lidocaine 1% = 3 mL. Medication's Wasted: Nitro = 49.8 mg. Medication's Wasted: Heparin = 3500 Units. Medication's Wasted: Other = Versed 2 mg. Medication's Wasted: Other = Fentanyl 150 mcg. Total IV fluids: 23 mL. Post-op diagnosis: Non-obstructive CAD. Complications: none. Estimated blood loss: 5mL-10mL. Responsiveness - Normal response to verbal stimuli; alert and oriented, PERRLA. Airway - Unaffected, no intervention required; spontaneous ventilation. Circulation: W/N/L, pulses unchanged. Circulation: W/N/L, pulses unchanged. Nausea/Vomiting: No. Current Diagnosis : Unstable angina. Procedure completed. Patient transferred by wheelchair to 1st floor. Vital chart was stopped. Access Site Site: Right Radial artery Sheath Size: 6 Fr Hemostasis Method: TR Band Hemostasis Success: Successful Procedure Medications Start: 12:40 PM Stop: 12:40 PM Medication: Nitrogylcerin Amount: 10 mcg/min Route: I.V. drip Start: 12:40 PM Stop: 12:40 PM Medication: Versed Amount: 1 mg Route: I.V. Start: 12:40 PM Stop: 12:40 PM Medication: Fentanyl Amount: 50 mcg Route: I.V. Start: 12:40 PM Stop: 12:40 PM Medication: Versed Amount: 1 mg Route: I.V. Start: 12:43 PM Stop: 12:43 PM Medication: Heparin Amount: 2500 units Route: I.V. I, the attending physician, have reviewed and verified all procedure medications. Yes, all medications given per verbal order History/Risk Factors Hypertension: Yes Dyslipidemia: Yes Peripheral Arterial Disease (PAD): Yes Myocardial Infarction (MN): Yes Obesity: No Renal Disease: No Tobacco Use: Current/Recent(w/in 1 year) Prior Interventions PCI: Yes CABG: No Valve Surgery: No Date of PCI: 06/15/2022 Report Signatures Finalized by Tanvir Thrasher MD on 09/20/2022 05:11 PM
--- NOTE | 2022-09-06 12:32 | P.HP_ITS ---
Providers/Chief Complaint Admitting Physician: Tanvir Thrasher MD/ Cardiology Primary Care Provider: Frank Smith DO Chief Complaint: chest pain/ unstable angina History of Present Illness Yessi Schulte is a 62 year old female with past medical history of CAD, hypertension, smoking, diabetes who recently underwent successful revascularization of RCA with CHASE x1 and had IFR of LAD that was nonischemic has presented to hospital with abdominal and chest pain. According to patient she has not been taking her medications including aspirin and Plavix for the last 2 days as she was nauseous and felt that she has bowel obstruction. States today started having chest pain. It was substernal and radiating to the right arm. Initial EKG demonstrated significant ST depressions in inferior leads. Initial troponin is 24. For evaluation of abdominal pain, patient had CT scan of abdomen not showing acute pathology. Review of Systems Const: Reports: fatigue Card: Reports: chest pain and palpitations; Denies: irregular heart rhythm, swelling of feet/ankles, lightheadedness, pre- syncope, dyspnea on exertion, orthopnea or leg pain with exertion Resp: Denies: dyspnea, productive cough or non-productive cough Musc: Reports: neck pain and back pain Neuro: Reports: headache(s); Denies: dizziness Psych: Denies: anxiety, depression, suicidal ideation or homicidal ideation Keaton/Lymph: Denies: easy bruising or easy bleeding Medications/Allergies Home Medications Medication Instructions Recorded Confirmed Last Taken Type diphenhydramine HCl 25 mg capsule 25 mg PO Q8H PRN Allergy Symptoms 10/26/20 09/06/22 10/26/20 History (Benadryl) albuterol sulfate 90 mcg/actuation 2 puff inhalation QID PRN 06/21/21 09/06/22 06/13/22 History aerosol inhaler (ProAir HFA) Shortness Of Breath glipizide 10 mg tablet, extended 10 mg PO QAM #90 tabs 04/20/22 09/06/22 09/04/22 Rx release 24 hr famotidine 10 mg tablet 10 mg PO BID PRN Acid Reflux 06/14/22 09/06/22 Unknown History melatonin 10 mg tablet 20 mg PO BEDTIME PRN Sleep 06/14/22 09/06/22 06/13/22 History metoprolol succinate 25 mg 25 mg PO BID #90 tabs 08/23/22 09/06/22 09/04/22 Rx tablet,extended release 24 hr aspirin 81 mg tablet,delayed 81 mg PO QAM 09/06/22 09/06/22 09/04/22 History release atorvastatin 40 mg tablet 40 mg PO BEDTIME 09/06/22 09/06/22 09/04/22 History clonazepam 0.5 mg tablet 0.25 mg PO BID 09/06/22 09/06/22 09/04/22 History clopidogrel 75 mg tablet 75 mg PO QAM 09/06/22 09/06/22 09/04/22 History gabapentin 300 mg capsule 300 mg PO Q8H 09/06/22 09/06/22 09/04/22 History isosorbide mononitrate 60 mg 60 mg PO DAILY@13 09/06/22 09/06/22 09/04/22 History tablet,extended release 24 hr nitroglycerin 0.4 mg sublingual 0.4 mg sublingual Q5M PRN Chest 09/06/22 09/06/22 Unknown History tablet (Nitrostat) Pain Allergies Allergy/AdvReac Type Severity Reaction Status Date / Time ciprofloxacin [From Cipro] Allergy Severe Unresponsiv Verified 08/23/22 13:34 e codeine Allergy Severe ALGY-Anaphy Verified 08/23/22 13:34 laxis lidocaine Allergy Severe ALGY-Swell Verified 08/23/22 13:34 Lip/Tongue/Throat morphine Allergy Severe ALGY-Anaphy Verified 08/23/22 13:34 laxis Penicillins Allergy Severe ALGY-Swell Verified 08/23/22 13:34 Lip/Tongue/Throat procaine [From Novocain] Allergy Severe ALGY-Swell Verified 08/23/22 13:34 Lip/Tongue/Throat prochlorperazine Allergy Severe ALGY-Swell Verified 08/23/22 13:34 [From Compazine] Lip/Tongue/Throat adhesive tape Allergy Unknown Unknown Verified 08/23/22 13:34 Sulfa (Sulfonamide Allergy Unknown Unknown Verified 08/23/22 13:34 Antibiotics) PFSH Acute PFSH: Medical History Atherosclerosis of coronary artery Claudication Cough Depression Essential hypertension Fatigue Generalized body aches HTN (hypertension) with goal to be determined Myocardial infarction acute 09/2019 Neutrophilic leukocytosis Pancreatitis SBO (small bowel obstruction) Shortness of breath Type 2 diabetes mellitus without complication, with no history of insulin use Surgical History H/O exploratory laparotomy Multiple bowel resections History of 3 sections History of appendectomy History of incisional hernia repair S/P cardiac cath S/P cholecystectomy S/P DONNA-BSO Status post colonoscopy Family History Mother Cancer, Onset Age: 60 Double mastectomy Sister Cancer, Onset Age: 53 double mastectomy Sister Cancer, Onset Age: 52 partial mastectomy Social History Smoking and tobacco status: current every day smoker cigarettes [ Other cigarette details: On and off ] Alcohol intake: current Alcohol intake frequency: holidays/special occasions only Female Reproductive History: Spontaneous abortions: No Vitals/I&O/Wt Last Vital Signs Temp 97.7 F 09/06/22 10:01 Pulse 86 09/06/22 10:35 Resp 14 09/06/22 11:58 BP 131/79 09/06/22 10:35 Pulse Ox 98 09/06/22 11:58 O2 Del Method Room Air 09/06/22 10:35 Weight last 48 hrs Weight 120 lb Physical Exam Narrative: GENERAL: Patient is alert, awake and oriented x3. [] NECK: No jugular vein distension. [] HEENT: No cyanosis. No icterus. No pallor. [] HEART: Regular S1 and S2. No murmur, rub or gallop. [] LUNGS: Clear to auscultate bilaterally. [] ABDOMEN: Soft CENTRAL NERVOUS SYSTEM: Grossly nonfocal. [] EXTREMITIES: Lower extremities with 1+ edema bilaterally. Pulses palpable in the lower extremities, both dorsalis pedis and posterior tibial. [] Data 09/06/22 10:57 09/06/22 10:57 A&P Assessment and plan (1) Unstable angina: (2) HTN (hypertension) with goal to be determined: (3) Mixed dyslipidemia: (4) Type 2 diabetes mellitus without complication, with no history of insulin use: Plan Patient had recent coronary stent and did not take her dual antiplatelet therapy for the last 2 to 3 days because of GI symptoms. Although EKG is not showing ST elevation however there is significant ST depressions in inferior leads. We will proceed with urgent coronary angiogram with possible percutaneous coronary intervention. Risks and benefits of the procedure of been discussed with the patient. Patient loaded with aspirin and Plavix. CT scan of the abdomen performed. Not showing acute pathology. We will consult medicine team for further work-up therefore coronary angiogram is not showing significant CAD and stent is patent. Attestations Medical Necessity Statement*: Care not expected to cross 2 midnights. Patient going for coronary angiogram and likely will be discharged tomorrow. Coding Level of Care Code Acute Code for Chg Fwd Diagnoses Unstable angina I20.0 HTN (hypertension) with goal to be determined I10 Mixed dyslipidemia E78.2 Type 2 diabetes mellitus without complication, with no history of insulin use E11.9
--- NOTE | 2022-09-06 13:56 | PC.NURSE ---
Patient is complaining of chest pain. Attempted to call Dr. Thrasher to notify of CP. Unable to reach at this time.
--- NOTE | 2022-09-06 14:22 | PC.NURSE ---
Chest pain assessment comment: Patient complaining of CP. Called Dr Thrasher to notify. Order for Nitro gtt as needed. Upon re-assessing, patient is asleep resting in bed. Will continue to assess CP closely.
[2022-09-06 14:41] LABS: Troponin 5 2HR 34.76 ng/L (0-10)
[2022-09-06 14:43] LABS: Troponin 5 2HR Delta 10.76 ABS# (0-10)
[2022-09-06 15:54] LABS: Lactate (Lactic Acid level) 1.4 mmol/L (0.5-2.2)
[2022-09-06 16:11] LABS: Lipase 10 U/L (13-60)
--- NOTE | 2022-09-06 16:11 | ECG_ITS ---
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 Measurements Intervals [place] Rate: 87 P: 69 MS: 150 QRS: 52 QRSD: 70 T: 18 QT: 365 QTc: 440 Interpretive Statements SINUS RHYTHM SEPTAL MYOCARDIAL INFARCTION , OF INDETERMINATE AGE [40+ ms Q WAVE IN V1/V2] MODERATE T-WAVE ABNORMALITY, CONSIDER ANTERIOR ISCHEMIA [-0.1+ mV T-WAVE IN V3/V4] Compared to ECG 09/06/2022 11:48:32 Myocardial infarct finding now present T-wave abnormality still present Possible ischemia still present Electronically Signed On 09-06-2022 21:14:03 CDT by Hernan Coffman M.D. [id number]
[2022-09-06 16:39] LABS: Glucose Point of Care 107 mg/dL (70-110)
[2022-09-06 18:02] LABS: Troponin 5 6HR 30.73 ng/L (0-10)
[2022-09-06 18:03] LABS: Troponin 5 6HR Delta 6.73 ng/L (0-12)
--- NOTE | 2022-09-06 18:05 | CTR_ITS ---
PROCEDURE INFORMATION: Exam: CTA Chest With Contrast Exam date and time: 09/06/2022 9:02 PM Age: 62 years old Clinical indication: Chest pressure; Patient HX: C/O chest pain with elevated troponin. History of dvt and cad. ; Additional info: Assess for pe, dissection, HX dvt TECHNIQUE: Imaging protocol: Computed tomographic angiography of the chest with contrast. 3D rendering (Not supervised by radiologist): MIP and/or 3D reconstructed images were created by the technologist. Radiation optimization: All CT scans at this facility use at least one of these dose optimization techniques: automated exposure control; mA and/or kV adjustment per patient size (includes targeted exams where dose is matched to clinical indication); or iterative reconstruction. Contrast material: OMNI 350; Contrast volume: 57 ml; Contrast route: INTRAVENOUS (IV); REPORTING DATA: Count of CT and Cardiac NM exams in prior 12 months: This patient has received [address] and 0 known cardiac nuclear medicine studies in the 12 months prior to the current study. COMPARISON: CT angio chest PE protcl [id number] 10/26/2020 7:28 PM RADIATION DOSE METRICS: Total DLP (mGy-cm): 225.36 FINDINGS: Pulmonary arteries: Normal. No pulmonary emboli. Aorta: Ascending thoracic aorta mildly prominent at 3.3 cm. Lungs: Bibasilar atelectasis. Emphysematous changes. Pleural spaces: Unremarkable. No pneumothorax. No pleural effusion. Heart: Unremarkable. No cardiomegaly. No pericardial effusion. Coronary arteries: Coronary artery atherosclerotic calcifications. Lymph nodes: Unremarkable. No enlarged lymph nodes. Liver: Hepatic steatosis. Gallbladder and bile ducts: Cholecystectomy. Bones/joints: T12 vertebroplasty changes. Soft tissues: Unremarkable. CT/CT angio chest PE protcl [id number] IMPRESSION: 1. Negative for pulmonary embolus or aortic dissection. 2. Hepatic steatosis. 3. Cholecystectomy. 4. Ascending thoracic aorta mildly prominent at 3.3 cm. 5. Bibasilar atelectasis. 6. T12 vertebroplasty changes. 7. Coronary artery atherosclerotic calcifications. 8. Emphysematous changes. COMMENTS: In the absence of a history or active diagnosis of lung cancer, it is recommended that this patient with emphysema be evaluated for enrollment in a low dose CT lung cancer screening program.
--- NOTE | 2022-09-06 18:14 | P.CONIM_ITS ---
Providers/Reason For Consult Consulting Physician/Specialty*: Dr. Thrasher/cardiology Reason for Consult*: Abdominal pain/nausea Attending Physician: Tanvir Thrasher M.D Primary Care Provider: Frank Smith DO History of Present Illness History of Present Illness 62-year-old lady came in for evaluation due to nausea, yesterday started having upper abdominal pain and vomiting. She has history of Crohn's disease with multiple small bowel resections, history of multiple episodes of small bowel obstruction in the past, she thought she was having an episode of obstruction again, she tried an enema, but having bowel movements, no constipation. This morning she started feeling much worse with sharp chest pain at the lower end of the chest, as well as right shoulder, right shoulder blade further episodes of vomiting and persistent nausea. Denies pain being worse with inspiration. Denies any pain on swallowing. In ER cardiology was called for evaluation and she underwent coronary angiography due to abnormality of troponin and dynamic EKG changes. Her recent stent was found patent. No new occlusion. She continues having nausea, some chest pain which was deemed noncardiac, upper abdominal pain, hospitalist is consulted. She does not report history of diabetes, does report that food often times stays in her stomach a long time like she does not digested . She reports history of multiple episodes of pancreatitis in the past. She reports history of multiple Episodes of DVT in the past, in the past used to be on anticoagulation with Eliquis. She took ibuprofen maybe a month ago last time otherwise takes Tylenol. She does not drink alcohol. She still smokes but has been cutting down, is down to about 3-4 cigarettes in a day, sometimes does not smoke for several days in a row. Review of Systems 2 Card: Reports: chest pain GI: Reports: abdominal pain (Upper), nausea and vomiting Musc: Reports: extremity swelling (LLE intermittent) Medications/Allergies Home Medications Medication Instructions Recorded Confirmed Last Taken Type diphenhydramine HCl 25 mg capsule 25 mg PO Q8H PRN Allergy Symptoms 10/26/20 09/06/22 10/26/20 History (Benadryl) albuterol sulfate 90 mcg/actuation 2 puff inhalation QID PRN 06/21/21 09/06/22 06/13/22 History aerosol inhaler (ProAir HFA) Shortness Of Breath glipizide 10 mg tablet, extended 10 mg PO QAM #90 tabs 04/20/22 09/06/22 09/04/22 Rx release 24 hr famotidine 10 mg tablet 10 mg PO BID PRN Acid Reflux 06/14/22 09/06/22 Unknown History melatonin 10 mg tablet 20 mg PO BEDTIME PRN Sleep 06/14/22 09/06/22 06/13/22 History metoprolol succinate 25 mg 25 mg PO BID #90 tabs 08/23/22 09/06/22 09/04/22 Rx tablet,extended release 24 hr aspirin 81 mg tablet,delayed 81 mg PO QAM 09/06/22 09/06/22 09/04/22 History release atorvastatin 40 mg tablet 40 mg PO BEDTIME 09/06/22 09/06/22 09/04/22 History clonazepam 0.5 mg tablet 0.25 mg PO BID 09/06/22 09/06/22 09/04/22 History clopidogrel 75 mg tablet 75 mg PO QAM 09/06/22 09/06/22 09/04/22 History gabapentin 300 mg capsule 300 mg PO Q8H 09/06/22 09/06/22 09/04/22 History isosorbide mononitrate 60 mg 60 mg PO DAILY@13 09/06/22 09/06/22 09/04/22 History tablet,extended release 24 hr nitroglycerin 0.4 mg sublingual 0.4 mg sublingual Q5M PRN Chest 09/06/22 09/06/22 Unknown History tablet (Nitrostat) Pain Allergies Allergy/AdvReac Type Severity Reaction Status Date / Time ciprofloxacin [From Cipro] Allergy Severe Unresponsiv Verified 08/23/22 13:34 e codeine Allergy Severe ALGY-Anaphy Verified 08/23/22 13:34 laxis lidocaine Allergy Severe ALGY-Swell Verified 08/23/22 13:34 Lip/Tongue/Throat morphine Allergy Severe ALGY-Anaphy Verified 08/23/22 13:34 laxis Penicillins Allergy Severe ALGY-Swell Verified 08/23/22 13:34 Lip/Tongue/Throat procaine [From Novocain] Allergy Severe ALGY-Swell Verified 08/23/22 13:34 Lip/Tongue/Throat prochlorperazine Allergy Severe ALGY-Swell Verified 08/23/22 13:34 [From Compazine] Lip/Tongue/Throat adhesive tape Allergy Unknown Unknown Verified 08/23/22 13:34 Sulfa (Sulfonamide Allergy Unknown Unknown Verified 08/23/22 13:34 Antibiotics) PFSH Acute PFSH: Medical History Atherosclerosis of coronary artery Claudication Cough Depression Essential hypertension Fatigue Generalized body aches HTN (hypertension) with goal to be determined Myocardial infarction acute 09/2019 Neutrophilic leukocytosis Pancreatitis SBO (small bowel obstruction) Shortness of breath Type 2 diabetes mellitus without complication, with no history of insulin use Surgical History H/O exploratory laparotomy Multiple bowel resections History of 3 sections History of appendectomy History of incisional hernia repair S/P cardiac cath S/P cholecystectomy S/P DONNA-BSO Status post colonoscopy Family History Mother Cancer, Onset Age: 60 Double mastectomy Sister Cancer, Onset Age: 53 double mastectomy Sister Cancer, Onset Age: 52 partial mastectomy Social History Smoking and tobacco status: current every day smoker cigarettes [ Other cigarette details: On and off ] Alcohol intake: current Alcohol intake frequency: holidays/special occasions only Female Reproductive History: Spontaneous abortions: No Vitals/I&O/Wt Last Vital Signs Temp 98.5 F 09/06/22 17:19 Pulse 88 09/06/22 17:19 Resp 18 09/06/22 17:19 BP 121/85 09/06/22 17:19 Pulse Ox 95 09/06/22 17:19 O2 Del Method Room Air 09/06/22 17:19 09/06/22 09/06/22 09/06/22 06:59 14:59 22:59 Intake Total 0 / 0 Balance 0 / 0 Weight last 48 hrs Weight 54.431 kg Physical Exam Narrative: Accompanied by family Const: COMMON NORMALS: patient oriented x3 and alert GENERAL APPEARANCE: cooperative ORIENTATION/CONSCIOUSNESS: Yes awake OTHER: Earlier nauseated, had to go to the restroom. On return she is feeling better. Later reported again having nausea. HENMT: COMMON NORMALS: oropharynx normal Neck/C-Spine: COMMON NORMALS: no JVD Resp: COMMON NORMALS: normal respiratory effort and clear to auscultation bilaterally AUSCULTATION: clear to auscultation bilaterally Cardio: COMMON NORMALS: no JVD, regular rhythm, S1 normal heart sound present, S2 normal heart sound present and No murmurs present (Cardio) RHYTHM: regular rhythm HEART SOUNDS: S1 normal heart sound present and S2 normal heart sound present GI: COMMON NORMALS: Normal to inspection, nondistended, normoactive bowel sounds present, Soft to palpation and non-tender PALPATION: Yes Soft to palpation Extremity: COMMON NORMALS: no joint enlargement and no pedal edema NARRATIVE EXTREMITY EXAM: TR band right wrist OTHER: Reports having intermittent edema left lower extremity, but not currently. Neuro: COMMON NORMALS: patient oriented x3 and moves all extremities SENSORIUM/ORIENTATION: Yes alert Skin: COMMON NORMALS: no rashes or lesions noted GENERAL SKIN EXAM: no rashes or lesions noted Data 09/06/22 10:57 09/06/22 10:57 A&P Assessment and plan (1) Nausea & vomiting: Zofran. Discussed with her Reglan, however, unable to order as may be cross-elliot ction with procaine which per reports sounds like swelling of lips tongue throat. We will have to consider possibly erythromycin. Gentle IV hydration. N.p.o. sips chips meds. Multiple possible etiologies discussed with her, including gastroparesis, and with nausea vomiting possibility of Patricia-Smith tear, discussed possibility of more dangerous conditions including [place], etc. will closer assess with CT as below. She will benefit from gastric emptying study eventually once her symptoms are better and she is able to tolerate it. She is in agreement. Consider also barium swallow study once able to tolerate oral intake. Other consideration may be gastritis/PUD. Does not take NSAIDs. Does not drink alcohol. On aspirin chronically, does smoke. States has had EGDs in the past last has been several years back. Would benefit from repeat EGD at some point. Additionally with history of diabetes we will also request urine and serum ketones to assess for possible DKA. With history of pancreatitis requesting lipase. With vasculopathy, reviewing prior CT scans does not appear to have had any significant stenosis, mild aortic atherosclerosis. Lactic acid ordered. Abdomen is soft, nontender except for epigastrium. History recurrent SBO, currently does not appear to have obstruction on CT. (2) Chest pain: CTA given history of DVT in the past. Reports also left lower extremity intermittent edema. Will obtain left lower extremity duplex. Discussed with her risks of contrast nephropathy. She is agreeable to proceed. Status post coronary angiogram, pain considered likely noncardiac, although could be microvascular disease related. Would continue to optimize antianginals as well. (3) Epigastric pain: Assess for possible pancreatitis, treat for possible gastritis/PUD, additional assessment with CT to help assess for esophageal normality, Naveen will benefit from barium swallow, EGD. PPI IV. Antiemetics. Currently requiring IV pain medication with Dilaudid, requested. Consult Attestations Medical Necessity Statement: Crohn's disease: She states is in remission, not on any active treatment, follows with GI in [place]. History of pancreatitis History of DVT CAD, status post stenting, status post cholangiogram today via right wrist approach. No new occlusions, recent stent patent. Continue antiplatelets and other cardiac meds. History of recurrent SBO HTN DM2: Requested Accu-Cheks, mild SSI. Hold glipizide. Discussed with pantographer. Cardiology and ER documentation reviewed. Diagnoses Nausea & vomiting R11.2 Chest pain R07.9 Epigastric pain R10.13
[2022-09-06] MEDS: sodium chloride 0.9% 1,000 ML 100 ML IV (18:20)
[2022-09-06] MEDS: CLONazepam 0.5 mg Tablet 0.25 MG PO (18:40)
[2022-09-06] MEDS: metoprolol succinate ER (24 HR) 25 mg Tablet PO (18:40)
[2022-09-06] MEDS: pantoprazole 40 mg SDV IVP (19:41)
[2022-09-06] MEDS: atorvastatin 40 mg Tablet PO (19:41)
[2022-09-06 20:52] LABS: Ketone (Acetest) Serum Negative (Negative)
[2022-09-07] VITALS (7 sets, daily range): BP systolic 102–137; BP diastolic 56–87; PULSE 69–96; RESP 16–22; TEMP 36.7–36.8; O2SAT 92–97
[2022-09-07 00:17] LABS: Glucose Point of Care 106 mg/dL (70-110)
[2022-09-07] MEDS: sodium chloride 0.9% 1,000 ML 100 ML IV (02:58)
[2022-09-07] MEDS: ondansetron 2 mg/ML SDV 2 mL 4 MG IVP (02:58)
[2022-09-07 03:18] LABS: Basophils % 0.4 %; Eosinophils # 0.1 10^3/uL (0.0-0.8); Eosinophils % 1.5 %; Hemoglobin 10.9 g/dL (11.5-15.3); Lymphocytes # 2.8 10^3/uL (0.8-4.8); Lymphocytes % 38.6 %; Mean Corpuscular Hemoglobin 30.5 pg (28.0-34.0); Mean Corpuscular Volume 92.4 fl (81-99); Mean Platelet Volume 8.5 fL (7.4-10.4); Monocytes # 0.5 10^3/uL (0.2-0.9); Monocytes % 6.4 %; Neutrophils # 3.87 10^3/uL (1.8-7.7); Neutrophils % 52.8 %; Nucleated Red Blood Cells % 0 %; Platelet Count 374 10^3/cmm (130-400); Red Blood Count 3.57 10^6/uL (4.1-5.3); Red Cell Distribution Width 12.4 % (12.1-15.1); White Blood Count 7.3 10^3/uL (4.0-10.0)
[2022-09-07 03:39] LABS: Anion Gap 15.5 (5-19); Blood Urea Nitrogen 7 mg/dL (8-23); Calcium 8.3 mg/dL (8.5-10.5); Carbon Dioxide 22 mmol/L (22-29); Chloride 106 mmol/L (98-107); Glomerular Filtration Rate 124.6 mL/min (90-130); Glucose 104 mg/dL (65-115); Osmolality Calculated 288 mOsm/kg (285-295); Potassium 3.5 mmol/L (3.5-5.1); Sodium 140 mmol/L (136-145)
[2022-09-07] MEDS: aspirin 81 mg EC Tablet PO (05:03)
[2022-09-07] MEDS: pantoprazole 40 mg SDV IVP (05:03)
[2022-09-07] MEDS: clopidogrel 75 mg Tablet PO (05:03)
[2022-09-07 05:13] LABS: Glucose Point of Care 113 mg/dL (70-110)
[2022-09-07 05:56] LABS: Add Urine Microscopic? YES; Bilirubin Urine Neg (Negative); Blood Urine Neg (Negative); Glucose Urine UA Norm (Normal); Ketones Urine 1+ (Negative); Leukocyte Esterase Urine Negative (Negative); Nitrate Urine Positive (Negative); Protein Urine Neg (Negative); Specific Gravity, Urine 1.005 (1.005-1.030); Urine Appearance SL Hazy (CLEAR); Urine Color Yellow (Yellow); Urobilinogen Urine 1 mg/dL (Negative); pH Urine 5 (5-7)
[2022-09-07 05:57] LABS: Add Urine Culture? Yes; Bacteria Urine 4+ /hpf; Squamous Epithelial Cell Urine 0-4 /hpf (0-5); WBC Urine 0-4 /hpf (0-5)
[2022-09-07] MEDS: CLONazepam 0.5 mg Tablet 0.25 MG PO (09:32)
[2022-09-07] MEDS: metoprolol succinate ER (24 HR) 25 mg Tablet PO (09:32)
--- NOTE | 2022-09-07 10:56 | PC.CHAP ---
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 [] Patient/Family/Request visit [] Outpatient visit [] Follow-up visit [] Physician referral [] Code/Alert [x] Routine visit [] Staff referral [] Actively dying [] Patient sleeping [x] Family support [] [] Out of room [] Palliative care [] [] Receiving care in room [] Pre-surgical visit [] Trauma [] Long length of stay [] ICU visit [] Other: Relational/Emotional Strength [x] Patient feels connected with others/family/visitors/staff [] Distress [] Loneliness/isolation [] Abandonment Spirituality of Patient [x] Person of Ale [x Attends Religion of their Ale [x] Believes in Prayer [] Reads Bible or Catholic materials [] There are Spiritual issues to be addressed Budget Analyst Interventions [x] Prayer []x Active listening [x] Non-anxious presence [] Spiritual/emotional support [] Crisis/trauma care [] Spiritual counseling [] Bereavement support [] Provided bereavement packet [] Provided Bible/devotional materials [] Provided toy/stuffed animal, coloring book to patient or family member [] Provided Communion [] Anointing/[place] [] Salvation [x] Completed spiritual assessment [] Other: Impact on Illness or Injury [] Angry [] Fearful [] Anxious [] Often cries [] Exhaustion [] Unable to work [] Unable to attend latter day [] Unable to walk/stand [] Unable to read [] Unable to drive [] Unable to eat/drink [] Unable to sleep [] Unable to be with family [] Patient intubated [] Other: Summary Time spent with patient 10 min
[2022-09-07 11:10] LABS: Glucose Point of Care 124 mg/dL (70-110)
[2022-09-07] MEDS: nicotine 4 mg lozenge MUCOUS MEM (11:22)
[2022-09-07] MEDS: nitrofurantoin SR (BID) 100 mg Capsule PO (11:22)
--- NOTE | 2022-09-07 12:03 | PM.PN ---
Subjective Subjective: This morning she is feeling much better, no further nausea vomiting, chest pain and epigastric pain have resolved. She has eaten breakfast. She states that she always takes small bites, Vitals/I&O/Wt Last Vital Signs Temp 98.1 F 09/07/22 05:30 Pulse 74 09/07/22 09:33 Resp 16 09/07/22 09:33 BP 130/87 09/07/22 09:33 Pulse Ox 96 09/07/22 08:09 O2 Del Method Room Air 09/07/22 08:09 09/06/22 09/07/22 09/07/22 22:59 06:59 14:59 Intake Total 100 / 100 1383.333 / 5206.215 5787 / 1000 Output Total 200 / 200 Balance 100 / 100 1183.333 / 2717.128 1740 / 1000 Weight last 48 hrs Weight 54.431 kg Physical Exam Const: COMMON NORMALS: patient oriented x3 and alert GENERAL APPEARANCE: cooperative ORIENTATION/CONSCIOUSNESS: Yes awake HENMT: COMMON NORMALS: oropharynx normal Neck/C-Spine: COMMON NORMALS: no JVD Resp: COMMON NORMALS: normal respiratory effort and clear to auscultation bilaterally AUSCULTATION: clear to auscultation bilaterally Cardio: COMMON NORMALS: no JVD, regular rhythm, S1 normal heart sound present, S2 normal heart sound present and No murmurs present (Cardio) RHYTHM: regular rhythm HEART SOUNDS: S1 normal heart sound present and S2 normal heart sound present GI: COMMON NORMALS: Normal to inspection, nondistended, normoactive bowel sounds present, Soft to palpation and non-tender PALPATION: Yes Soft to palpation Extremity: COMMON NORMALS: no joint enlargement and no pedal edema Neuro: COMMON NORMALS: patient oriented x3 and moves all extremities SENSORIUM/ORIENTATION: Yes alert Skin: COMMON NORMALS: no rashes or lesions noted GENERAL SKIN EXAM: no rashes or lesions noted Data 09/07/22 03:08 09/07/22 03:08 A&P Assessment and plan (1) Nausea & vomiting: This morning she is feeling much better, nausea, vomiting, chest pain, epigastric pain have resolved. Discussed with her and her regarding results of CTA which we reviewed with radiology. She does have some clips at the GE junction, and she initially did not remember, but then recalled that she did have surgery sounds like for possibly hiatal hernia repair. Discussed with her concern whether there may be some injury there or amount of ice tear, versus other abnormality, Boerhaave syndrome would be a less clear given she has eaten breakfast and has been doing well this morning. Still we discussed about getting further assessment. 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 States that she really cannot stay in the hospital, but did agree to barium swallow study, although as she has to be n.p.o. the study could not be accomplished today, so she still decides she wants to go home. Discussed with her we will give referral for barium swallow as well as EGD, and will also give referral for gastric emptying study due to suspicion for gastroparesis. We could not order Reglan as discussed with her due to possible cross reaction with procaine. Discussed strategies to help mitigate symptoms with reduced meal size, spread through the day. If symptoms persistent and bothersome, erythromycin could be considered or other measures. She understands she needs to follow-up for the assessments at risk of serious complication. Small meals, semiliquid, staying hydrated may with obstruction risk as well with multiple SBO history in the past. She is changed from famotidine to PPI. Additionally with history of diabetes we will also request urine and serum ketones to assess for possible DKA. Serum ketones were negative. With history of pancreatitis lipase was checked and negative. Pancreas appeared without signs of pancreatitis on imaging. With vasculopathy, reviewing prior CT scans does not appear to have had any significant stenosis, mild aortic atherosclerosis. Lactic acid was normal. Abdomen is soft, nontender except for epigastrium. History recurrent SBO, currently does not appear to have obstruction on CT. (2) Chest pain: Chest pain has resolved, suspect may have been related to her nausea and episodes of vomiting. Today completely asymptomatic, feels much better, ambulating, eating. Reviewed results of CTA with radiology, with her . No sign of PE. No dissection. Noted clips at GE junction as above. Status post coronary angiogram with patent stent, no new obstruction. Per discussion with cardiology this morning she is cleared for discharge from cardiovascular perspective. (3) Epigastric pain: As above. (4) UTI (urinary tract infection): Reports recurrent/persistent UTI, noted resistant organism back in May, and has allergies to multiple major antibiotic groups. Discussed with her restarting Macrobid, and referral to infectious disease. Attestations Medical Necessity Statement*: Insistent that she has to return home today. Diagnoses Nausea & vomiting R11.2 Chest pain R07.9 Epigastric pain R10.13 UTI (urinary tract infection) N39.0
--- NOTE | 2022-09-07 12:34 | PC.NURSE ---
IV removed, education provided. patient verbalized understanding of information provided. wheeled to main entrance by staff to driver manager
--- NOTE | 2022-09-07 12:47 | P.DS_ITS ---
Discharge Providers Date of Admission: 09/06/22 13:02 Date of Discharge: September 07, 2022 Attending Provider at Admission: Tanvir Thrasher M.D Attending Provider at Discharge: Tanvir Thrasher M.D Primary Care Provider: Frank Smith DO Diagnoses at Discharge Discharge Diagnosis (1) Nausea & vomiting: Status: Resolved (2) Chest pain: Status: Resolved (3) Epigastric pain: Status: Resolved (4) UTI (urinary tract infection): Status: Acute Reason for Visit Reason for Visit: chest pain/ unstable angina Brief History: 62 year old female with past medical history of CAD, hypertension, smoking, diabetes who recently underwent successful revascularization of RCA with CHASE x1 and had IFR of LAD that was nonischemic has presented to hospital with abdominal and chest pain.? According to patient she has not been taking her medications including aspirin and Plavix for the last 2 days as she was nauseous and felt that she has bowel obstruction.? States today started having chest pain.? It was substernal and radiating to the right arm.? Initial EKG demonstrated significant ST depressions in inferior leads. Initial troponin is 24. For evaluation of abdominal pain, patient had CT scan of abdomen not showing acute pathology. Hospital Course Hospital Course Patient underwent urgent urgent coronary angiogram that did not reveal significant CAD with patent prior stents. Hospital service was consulted for further work-up of GI symptoms. Please refer to their notes for detail. Plans for outpatient barium swallow and gastric emptying study. They wanted to keep patient for inpatient evaluation however patient wants to go home because of home situation. She does not have bowel obstruction. Patient advised to be compliant with dual antiplatelet therapy. Physical Exam Narrative: GENERAL: Patient is alert, awake and oriented x3. [] NECK: No jugular vein distension. [] HEENT: No cyanosis. No icterus. No pallor. [] HEART: Regular S1 and S2. No murmur, rub or gallop. [] LUNGS: Clear to auscultate bilaterally. [] ABDOMEN: Soft CENTRAL NERVOUS SYSTEM: Grossly nonfocal. [] EXTREMITIES: Lower extremities with no edema bilaterally. Pulses palpable in the lower extremities, both dorsalis pedis and posterior tibial. [] Discharge Data Studies Completed and Pending Completed Studies During Hospitalization Category Date Time Status CT abdomen pelvis con [id number] Stat Cat Scan 09/06/22 10:54 Completed CTA PE [CT angio chest PE protcl [id number]] Routine Cat Scan 09/06/22 18:05 Completed XR chest 1V portable [id number] Stat Exams 09/06/22 10:09 Completed Pending at discharge Category Date Time Status [employer] request for service Stat Exams 09/06/22 12:05 Taken [place] barium swallow [id number] Routine Exams 09/07/22 10:47 Ordered Urine Culture Routine Lab 09/07/22 05:13 Received Radiology Impressions Chest X-Ray 09/06/22 10:09 IMPRESSION: Possible new pulmonary nodule left lung base recommend additional imaging evaluation Abdomen/Pelvis CT 09/06/22 10:54 IMPRESSION: 1. No acute abdominal or pelvic findings 2. Prominent disc protrusion L4-L5 present in 2021 but slightly progressed. Results in moderate central canal stenosis with impingement on the traversing RIGHT greater than LEFT L5 nerve roots. This can be followed up with MRI. Chest CTA 09/06/22 18:05 IMPRESSION: 1. Negative for pulmonary embolus or aortic dissection. 2. Hepatic steatosis. 3. Cholecystectomy. 4. Ascending thoracic aorta mildly prominent at 3.3 cm. 5. Bibasilar atelectasis. 6. T12 vertebroplasty changes. 7. Coronary artery atherosclerotic calcifications. 8. Emphysematous changes. COMMENTS: In the absence of a history or active diagnosis of lung cancer, it is recommended that this patient with emphysema be evaluated for enrollment in a low dose CT lung cancer screening program. Laboratory Results WBC 7.3 10^3/uL (4.0-10.0) 09/07/22 03:08 RBC 3.57 10^6/uL (4.1-5.3) L 09/07/22 03:08 Hgb 10.9 g/dL (11.5-15.3) L 09/07/22 03:08 Hct 33.0 % (37.0-47.0) L 09/07/22 03:08 MCV 92.4 fl (81-99) 09/07/22 03:08 MCH 30.5 pg (28.0-34.0) 09/07/22 03:08 MCHC 33.0 g/dL (30.0-36.0) 09/07/22 03:08 RDW 12.4 % (12.1-15.1) 09/07/22 03:08 Plt Count 374 10^3/cmm (130-400) 09/07/22 03:08 MPV 8.5 fL (7.4-10.4) 09/07/22 03:08 Neut % (Auto) 52.8 % 09/07/22 03:08 Lymph % (Auto) 38.6 % 09/07/22 03:08 [place] % (Auto) 6.4 % 09/07/22 03:08 Eos % (Auto) 1.5 % 09/07/22 03:08 Baso % (Auto) 0.4 % 09/07/22 03:08 Neut # (Auto) 3.87 10^3/uL (1.8-7.7) 09/07/22 03:08 Lymph # (Auto) 2.8 10^3/uL (0.8-4.8) 09/07/22 03:08 [place] # (Auto) 0.5 10^3/uL (0.2-0.9) 09/07/22 03:08 Eos # (Auto) 0.1 10^3/uL (0.0-0.8) 09/07/22 03:08 Baso # (Auto) 0.0 10^3/uL (0.0-0.1) 09/07/22 03:08 Nucleated RBC % (auto) 0 % 09/07/22 03:08 Nucleated RBCs # 0.0 /100WBC 09/07/22 03:08 Sodium 140 mmol/L (136-145) 09/07/22 03:08 Potassium 3.5 mmol/L (3.5-5.1) 09/07/22 03:08 Chloride 106 mmol/L (98-107) 09/07/22 03:08 Carbon Dioxide 22 mmol/L (22-29) 09/07/22 03:08 Anion Gap 15.5 (5-19) 09/07/22 03:08 BUN 7 mg/dL (8-23) L 09/07/22 03:08 Creatinine 0.5 mg/dL (0.5-0.9) 09/07/22 03:08 GFR Calculation 124.6 mL/min (90-130) 09/07/22 03:08 Glucose 104 mg/dL (65-115) 09/07/22 03:08 POC Glucose 124 mg/dL (70-110) H 09/07/22 11:06 Calculated Osmolality 288 mOsm/kg (285-295) 09/07/22 03:08 Lactate 1.4 mmol/L (0.5-2.2) 09/06/22 10:57 Calcium 8.3 mg/dL (8.5-10.5) L 09/07/22 03:08 Total Bilirubin 0.7 mg/dL (0.15-1.2) 09/06/22 10:57 AST 19 U/L (0-32) 09/06/22 10:57 ALT 33 U/L (0-33) 09/06/22 10:57 Alkaline Phosphatase 59 U/L (35-105) 09/06/22 10:57 Troponin T Baseline 24 ng/L (0-10) H 09/06/22 10:57 Troponin T 120 Minute 34.76 ng/L (0-10) H 09/06/22 14:10 Delta Troponin T 10.76 ABS# (0-10) H* 09/06/22 14:10 Troponin T Hi Sens 6Hr 30.73 ng/L (0-10) H 09/06/22 17:15 Troponin T Hi Sens 6Hr Delta 6.73 ng/L (0-12) 09/06/22 17:15 Total Protein 6.7 g/dL (6.6-8.7) 09/06/22 10:57 Albumin 4.0 g/dL (3.5-5.2) 09/06/22 10:57 Globulin 2.7 g/dL (1.3-4.6) 09/06/22 10:57 Lipase 10 U/L (13-60) L 09/06/22 14:43 Urine Color Yellow (Yellow) 09/07/22 05:13 Urine Appearance Sl hazy (CLEAR) A 09/07/22 05:13 Urine pH 5 (5-7) 09/07/22 05:13 Ur Specific [place] 1.005 (1.005-1.030) 09/07/22 05:13 Urine Protein Neg (Negative) 09/07/22 05:13 Urine Glucose (UA) Norm (Normal) 09/07/22 05:13 Urine Ketones 1+ (Negative) H 09/07/22 05:13 Urine Blood Neg (Negative) 09/07/22 05:13 Urine Nitrate Positive (Negative) H 09/07/22 05:13 Urine Bilirubin Neg (Negative) 09/07/22 05:13 Urine Urobilinogen 1 mg/dL (Negative) H 09/07/22 05:13 Ur Leukocyte Esterase Negative (Negative) 09/07/22 05:13 Urine RBC None /hpf (0-2) 09/07/22 05:13 Urine WBC 0-4 /hpf (0-5) H 09/07/22 05:13 Ur Squamous Epith Cells 0-4 /hpf (0-5) H 09/07/22 05:13 Amorphous Sediment Not Reportable 09/07/22 05:13 Urine Bacteria 4+ /hpf (NONE) H 09/07/22 05:13 Serum Ketones Negative (Negative) 09/06/22 10:57 Vitals Last Vital Signs Temp 98.1 F 09/07/22 05:30 Pulse 70 09/07/22 12:29 Resp 18 09/07/22 12:29 BP 121/74 09/07/22 12:29 Pulse Ox 92 09/07/22 12:29 O2 Del Method Room Air 09/07/22 08:09 Discharge Plan Discharge Patient Disposition: Home Condition: Stable Prescriptions: New nicotine (polacrilex) 4 mg Lozenge 4 mg mucous membrane Q2H PRN (Reason: Nicotine Cravings) Qty: 90 3RF pantoprazole 40 mg tablet,delayed release (DR/EC) 40 mg PO DAILY Qty: 90 0RF Continued metoprolol succinate 25 mg tablet extended release 24 hr 25 mg PO BID Qty: 90 3RF glipizide 10 mg tablet extended release 24hr 10 mg PO QAM Qty: 90 1RF diphenhydramine HCl [Benadryl] 25 mg Capsule 25 mg PO Q8H PRN (Reason: Allergy Symptoms) aspirin 81 mg Tablet,Delayed Release (Dr/Ec) 81 mg PO QAM Nitrostat 0.4 mg Tablet, Sublingual 0.4 mg SUBLINGUAL Q5M PRN (Reason: Chest Pain) Rx Instructions: do not exceed 3 doses per episode gabapentin 300 mg capsule 300 mg PO Q8H isosorbide mononitrate 60 mg tablet extended release 24 hr 60 mg PO DAILY@13 melatonin 10 mg Tablet 20 mg PO BEDTIME PRN (Reason: Sleep) Discontinued famotidine 10 mg tablet 10 mg PO BID PRN (Reason: Acid Reflux) No Action ondansetron 4 mg tablet,disintegrating 4 mg PO Q6H PRN (Reason: nausea and vomiting) Qty: 30 5RF albuterol sulfate [ProAir HFA] 90 mcg/actuation HFA aerosol inhaler 2 puff INHALATION QID PRN (Reason: Shortness Of Breath) Qty: 8.5 2RF clonazepam 0.5 mg tablet 0.5 mg PO BID pantoprazole [Protonix] 40 mg tablet,delayed release (DR/EC) 40 mg PO BID 42 Days Qty: 84 1RF scopolamine base 1 mg over 3 days patch 3 day 1 patch transdermal Q3D PRN (Reason: nausea and vomiting) Qty: 4 0RF atorvastatin 40 mg tablet 40 mg PO BEDTIME Qty: 90 0RF clopidogrel 75 mg tablet 75 mg PO QAM Qty: 30 0RF nitrofurantoin monohyd/m-cryst 100 mg capsule 100 mg PO DAILY Qty: 30 5RF Discharge Orders: Discharge Order (Routine); Ordered 09/07/22 Ordered By: Óscar Lozano Other Ambulatory Orders: [place] barium swallow [id number] (Routine) Timeframe: [id number] Facility: [facility] - Location: Radiology [facility] Ordered By: Óscar Lozano [place] [id number] (Routine) Timeframe: 1 Week Facility: [facility] - Location: Radiology Ordered By: Óscar Lozano Referrals: Frank Smith DO [Primary Care Provider] - 09/10/22 1:30 pm (You have a previously scheduled appt scheduled for 09-10-22 at 1:30 pm. This will also be your follow up appt with Dr. Smith. Thank you.) Jakob Benites DO [Physician] - 2 weeks (EGD Dr. Benites's Office has your information and will be calling you back to schedule an appt. Please call [phone] with any questions or concerns. Thank you.) Iona Villegas MD [Hospitalist] - 1 week (Recurrent UTI, resistant org, allergies) Gabriella Vilchis FNP [Nurse Practitioner] - 09/12/22 2:15 pm Discharge Diet: As Directed Patient Instructions: Nicotine (Into the mouth) ([place], Commit, [employer] Nicotine,..., Pantoprazole (By mouth) (Protonix), Epigastric Pain (GEN), Heart Catheterization (DC), Opioid Safety, Post Angiogram Home Care Instructions Activity Restrictions/Additional Instructions: Please maintain semiliquid diet as discussed, which is soft, very small portions at a time. Spread through the day. As discussed you will need additional assessment due to vomiting, lower chest and epigastric pain and due to prior surgery and so are referred for barium swallow study which originally was going to be done in the hospital. Please make sure to attend this study, otherwise go to the hospital immediately in case you experience any symptoms of further vomiting, epigastric pain or discomfort, lower chest pain or other concerning symptoms. Your famotidine is changed to Protonix. Follow-up with gastric emptying study for further assessment for possible gastroparesis. Follow-up with your primary doctor with regards to treatment options. You are allergic to procaine and there may be cross-reaction with metoclopramide so this is not started currently. In case symptoms are persistent and not manageable with decreasing portions, spreading through the day, taking tender consistency, you may consider erythromycin or other options with your primary doctor. You are additionally referred for assessment with EGD Follow-up with cardiology for reassessment of coronary disease, stent. Follow-up with your primary doctor regarding Crohn's disease, history of DVT, history of pancreatitis, and other chronic issues including diabetes, hypertension. Please make sure to quit smoking, smoking is detrimental both to your coronary disease causing risk of further heart attack and stent closure, as well as Crohn's disease, as well as risk of stomach cancer, esophageal cancer, other cancer, lung disease and other adverse effects. Please quit smoking. Use lozenges as needed. Discuss with your primary doctor for assistance. Discharge Attestations Time Spent in Discharge Care*: less than 30 min Quality Metrics Clinical Quality Measures [ No reported AMI, CVA or VTE this stay] Coding Level of Care Code Acute Code for Chg Fwd Diagnoses Nausea & vomiting R11.2 Chest pain R07.9 Epigastric pain R10.13 UTI (urinary tract infection) N39.0
== END 2022-09-07 12:32 | disposition home or self-care (01) ==
LOC: ER 10:47 → CCL 12:27 → CSU 13:02
PROVIDERS: Internal Medicine; Admitting Provider Internal Medicine; Emergency Provider Family Medicine; PCP Family Medicine; Visit Provider Internal Medicine
DX: R07.9 Chest pain, unspecified (principal); R10.13 Epigastric pain; R11.2 Nausea with vomiting, unspecified; N39.0 Urinary tract infection, site not specified; E11.51 Type 2 diabetes mellitus with diabetic peripheral angiopathy without gangrene; I10 Essential (primary) hypertension; E78.2 Mixed hyperlipidemia; I25.10 Atherosclerotic heart disease of native coronary artery without angina pectoris; I25.2 Old myocardial infarction; K50.90 Crohn's disease, unspecified, without complications; F17.210 Nicotine dependence, cigarettes, uncomplicated; Z79.899 Other long term (current) drug therapy; Z79.82 Long term (current) use of aspirin; Z79.84 Long term (current) use of oral hypoglycemic drugs; Z86.718 Personal history of other venous thrombosis and embolism; Z95.5 Presence of coronary angioplasty implant and graft; Z88.0 Allergy status to penicillin; Z88.2 Allergy status to sulfonamides; Z88.1 Allergy status to other antibiotic agents
CPT/HCPCS: 36415; 36416; 71045; 71275; 74176; 80048; 80053; 81001; 82009; 82962; 83605; 83690; 84484; 85025; 87077; 87086; 87186; 93005; 93458; 96365; 96375; 96376; 99152; 99153; 99285; C1769; C1887; C1894; C9113; G0378; J1170; J1644; J2250; J2405; J3010; J3490; J7030; Q9967

== ENCOUNTER → 2022-12-10 16:35 | Outpatient (BNVA) | payer BC, SELFPAY | PROVIDERS: PCP Family Medicine; Visit Provider Family Medicine | DX: I25.10 Atherosclerotic heart disease of native coronary artery without angina pectoris (principal); R30.0 Dysuria; N39.0 Urinary tract infection, site not specified; R39.9 Unspecified symptoms and signs involving the genitourinary system | CPT/HCPCS: 81000; 87086 ==

== ENCOUNTER 2022-12-23 13:48 | Emergency (ER) | payer BC, SELFPAY ==
[2022-12-23] VITALS (17 sets, daily range): BP systolic 137–142; BP diastolic 81–92; PULSE 61–69; RESP 13–33; TEMP 36.8; O2SAT 93–99; BMI 22.6
--- NOTE | 2022-12-23 13:53 | ECG_ITS ---
[facility] Test Date: 2022-12-23 Pat Name: Yessi Schulte Department: Room: Gender: Female Box Icer: : 1960 Requested By: Girish Mckinley Order Number: [id number] Gen MD: Tanvir Thrasher M.D. Measurements Intervals [place] Rate: 68 P: 48 CA: 173 QRS: 37 QRSD: 85 T: 30 QT: 417 QTc: 446 Interpretive Statements SINUS RHYTHM MINIMAL ST DEPRESSION [0.025+ mV ST DEPRESSION] Compared to ECG 09/06/2022 16:07:58 ST (T wave) deviation now present Myocardial infarct finding no longer present T-wave abnormality no longer present Possible ischemia no longer present Electronically Signed On 12-24-2022 8:31:24 CDT by Tanvir Thrasher M.D. [email or web address]
--- NOTE | 2022-12-23 15:01 | XRR_ITS ---
PROCEDURE INFORMATION: Exam: XR Chest Exam date and time: 12/23/2022 3:22 PM Age: 62 years old Clinical indication: Pain; Chest pressure; Additional info: Chest pain TECHNIQUE: Imaging protocol: Radiologic exam of the chest. Views: 1 view. COMPARISON: CR XR chest 1V portable [id number] 09/06/2022 10:38 AM FINDINGS: Lungs: Unremarkable. No consolidation. Pleural spaces: Unremarkable. No pleural effusion. No pneumothorax. Heart/Mediastinum: Cardiac silhouette appears mildly enlarged on this portable chest. Bones/joints: Prior ACDF and evidence of previous vertebroplasty upper lumbar spine. No acute bony abnormalities. Surgical clips projecting over the GE junction, unchanged. XR/XR chest 1V portable [id number] IMPRESSION: Mild cardiomegaly otherwise negative chest.
--- NOTE | 2022-12-23 15:20 | ED_ITS ---
HPI - Chest Pain General: Chief Complaint: Chest Pain Stated Complaint: chest pain, taken 2 nitro Time Seen by Provider: 12/23/22 15:01 History of Present Illness: Patient presents to the ER with chest pain. Chest pain started prior to arrival. Patient took 2 nitro. Patient thinks this is anxiety but although she felt this way when she had a stent placed back in May 2022. Patient usually does not have any breathing problems and she is short of breath and wheezing currently. Patient denies any fever chills nausea vomiting etc. Patient is currently on Plavix, Klonopin, gabapentin, metoprolol Review of Systems General: Reports: 10 or more systems reviewed and unremarkable except in HPI and below PFSH ED PFSH: Medical History Atherosclerosis of coronary artery Claudication Cough Depression Essential hypertension Fatigue Generalized body aches HTN (hypertension) with goal to be determined Myocardial infarction acute 09/2019 Neutrophilic leukocytosis Pancreatitis SBO (small bowel obstruction) Shortness of breath Type 2 diabetes mellitus without complication, with no history of insulin use UTI (urinary tract infection) Surgical History H/O exploratory laparotomy Multiple bowel resections History of 3 sections History of appendectomy History of incisional hernia repair S/P cardiac cath S/P cholecystectomy S/P DONNA-BSO Status post colonoscopy Family History Mother Cancer, Onset Age: 60 Double mastectomy Sister Cancer, Onset Age: 53 double mastectomy Sister Cancer, Onset Age: 52 partial mastectomy Social History Smoking and tobacco status: current every day smoker cigarettes [ Other cigarette details: On and off ] Alcohol intake: current Alcohol intake frequency: holidays/special occasions only Substance/Drug Use: never Female Reproductive History: Spontaneous abortions: No Physical Exam Const: COMMON NORMALS: no acute distress, average body habitus, patient oriented x3, no limitations, healthy appearing, alert and well nourished HENMT: COMMON NORMALS: normocephalic, atraumatic, hearing grossly normal bilaterally, external ears normal, Normal external nose present and moist oral mucous membranes HEAD & SCALP: normocephalic and atraumatic NOSE: Normal external nose present EXTERNAL EAR: Yes external ears normal Neck/C-Spine: COMMON NORMALS: full ROM, no lymphadenopathy, no meningeal signs, no JVD and Thyroid normal THYROID: Thyroid normal Chest: COMMONS NORMALS: normal inspection of the chest; negative for normal palpation of entire chest wall (She did palpate right side of chest wall, reproduces patient's pain.) Resp: COMMON NORMALS: normal respiratory effort, No retractions and No use of accessory muscles; negative for clear to auscultation bilaterally (Diffuse wheezing.) AUSCULTATION: not clear to auscultation bilaterally (Diffuse wheezing.) Cardio: COMMON NORMALS: no JVD, regular rate, regular rhythm, S1 normal heart sound present, S2 normal heart sound present, No gallops present (Cardio), No clicks present (Cardio), No murmurs present (Cardio) and No rub (Cardio) RATE: regular rate RHYTHM: regular rhythm HEART SOUNDS: S1 normal heart sound present and S2 normal heart sound present GI: COMMON NORMALS: Normal to inspection, nondistended, normoactive bowel sounds present, Soft to palpation, non-tender, No hepatosplenomegaly present and no masses PALPATION: Yes Soft to palpation and Yes No hepatosplenomegaly present : COMMON NORMALS: Yes no CVA tenderness BLADDER/KIDNEY EXAM: Yes no CVA tenderness Back/Pelvis: COMMON NORMALS: no CVA tenderness Extremity: NARRATIVE EXTREMITY EXAM: Negative bilateral lower extremity edema Neuro: COMMON NORMALS: patient oriented x3 SENSORIUM/ORIENTATION: Yes alert MENINGEAL SIGNS: Yes no meningeal signs Course Vital Signs: Vital signs: Vital Signs Temperature 98.3 F 12/23/22 13:56 Pulse Rate 61 12/23/22 17:10 Respiratory Rate 23 H 12/23/22 17:10 Blood Pressure 141/92 12/23/22 17:10 Pulse Oximetry 97 12/23/22 17:10 Oxygen Delivery Me thod Room Air 12/23/22 15:57 MDM - Chest Pain Medical Decision Making Patient presents to the ER with complaints of chest pain prior to arrival. Patient took 2 nitro patient thinks this is anxiety. Patient is pain-free when she come to the ER. Patient has had stents placed back in May 2022. Standard physical exam and cardiac work-up was performed which is negative so far. We anticipate the 2-hour troponin will be negative also. Anticipate patient will be discharged home with atypical chest pain and anxiety diagnosis. Differential Diagnosis Unlikely acute massive pulmonary embolism, acute respiratory failure, acute myocardial infarction, cardiac arrest or sudden cardiac Medical Records I reviewed the patient's medical records. Lab Data I reviewed the patient's lab results. 12/23/22 15:30 12/23/22 15:30 Radiology Impressions Chest X-Ray 12/23/22 15:01 IMPRESSION: Mild cardiomegaly otherwise negative chest. Laboratory Results WBC 7.1 10^3/uL (4.0-10.0) 12/23/22 15: RBC 4.03 10^6/uL (4.1-5.3) L 12/23/22 15: Hgb 12.3 g/dL (11.5-15.3) 12/23/22 15: Hct 37.2 % (37.0-47.0) 12/23/22 15: MCV 92.3 fl (81-99) 12/23/22 15: MCH 30.5 pg (28.0-34.0) 12/23/22 15: MCHC 33.1 g/dL (30.0-36.0) 12/23/22 15: RDW 12.8 % (12.1-15.1) 12/23/22 15: Plt Count 381 10^3/cmm (130-400) 12/23/22 15: MPV 8.6 fL (7.4-10.4) 12/23/22 15: Neut % (Auto) 43.0 % 12/23/22 15:30 Lymph % (Auto) 47.3 % 12/23/22 15:30 Mckenzie % (Auto) 7.3 % 12/23/22 15:30 Eos % (Auto) 1.7 % 12/23/22 15: Baso % (Auto) 0.4 % 12/23/22 15: Neut # (Auto) 3.05 10^3/uL (1.8-7.7) 12/23/22 15:30 Lymph # (Auto) 3.4 10^3/uL (0.8-4.8) 12/23/22 15:30 Mckenzie # (Auto) 0.5 10^3/uL (0.2-0.9) 12/23/22 15:30 Eos # (Auto) 0.1 10^3/uL (0.0-0.8) 12/23/22 15:30 Baso # (Auto) 0.0 10^3/uL (0.0-0.1) 12/23/22 15:30 Nucleated RBC % (auto) 0 % 12/23/22 15:30 Nucleated RBCs # 0.0 /100WBC 12/23/22 15:30 Sodium 141 mmol/L (136-145) 12/23/22 15:30 Potassium 3.9 mmol/L (3.5-5.1) 12/23/22 15:30 Chloride 107 mmol/L (98-107) 12/23/22 15:30 Carbon Dioxide 20 mmol/L (22-29) L 12/23/22 15:30 Anion Gap 17.9 (5-19) 12/23/22 15:30 BUN 8 mg/dL (8-23) 12/23/22 15:30 Creatinine 0.5 mg/dL (0.5-0.9) 12/23/22 15:30 GFR Calculation 124.6 mL/min (90-130) 12/23/22 15:30 Glucose 99 mg/dL (65-115) 12/23/22 15:30 Calculated Osmolality 290 mOsm/kg (285-295) 12/23/22 15:30 Calcium 9.3 mg/dL (8.5-10.5) 12/23/22 15:30 Total Bilirubin 0.4 mg/dL (0.15-1.2) 12/23/22 15:30 AST 26 U/L (0-32) 12/23/22 15:30 ALT 31 U/L (0-33) 12/23/22 15:30 Alkaline Phosphatase 65 U/L (35-105) 12/23/22 15:30 Troponin T Baseline 6 ng/L (0-10) 12/23/22 15:30 Total Protein 6.9 g/dL (6.6-8.7) 12/23/22 15:30 Albumin 4.2 g/dL (3.5-5.2) 12/23/22 15:30 Globulin 2.7 g/dL (1.3-4.6) 12/23/22 15:30 EKG Data EKG 1: I personally reviewed and interpreted this EKG as follows: EKG interpretation date: 12/23/22 EKG interpretation time: 13:53 Prior EKG tracings: not available for review Interpretation: EKG showed normal sinus rhythm, ventricular rate 68 beats a minute, RI interval 173, QRS duration 85, QTc 435, minimal ST depression, EKG 2: I personally reviewed and interpreted this EKG as follows: EKG interpretation date: 12/23/22 EKG interpretation time: 17:06 Prior EKG tracings: available for review Interpretation: EKG shows normal sinus rhythm ventricular rate of 64 bpm, RI interval 209, QRS duration 85, QTc of 442, no ST-T wave changes Discharge Plan Discharge Patient Disposition: Home Clinical Impression: Atypical chest pain, Anxiety Condition: Stable Prescriptions: No Action ondansetron 4 mg tablet,disintegrating 4 mg PO Q6H PRN (Reason: nausea and vomiting) Qty: 30 5RF albuterol sulfate [ProAir HFA] 90 mcg/actuation HFA aerosol inhaler 2 puff INHALATION QID PRN (Reason: Shortness Of Breath) Qty: 8.5 2RF metoprolol succinate 25 mg tablet extended release 24 hr 25 mg PO BID Qty: 90 3RF pantoprazole [Protonix] 40 mg tablet,delayed release (DR/EC) 40 mg PO BID 42 Days Qty: 84 1RF scopolamine base 1 mg over 3 days patch 3 day 1 patch transdermal Q3D PRN (Reason: nausea and vomiting) Qty: 4 0RF clonazepam 0.5 mg tablet 0.5 mg PO BID Qty: 60 0RF diphenhydramine HCl [Benadryl] 25 mg Capsule 25 mg PO Q8H PRN (Reason: Allergy Symptoms) nitroglycerin [Nitrostat] 0.4 mg Tablet, Sublingual 0.4 mg SUBLINGUAL Q5M PRN (Reason: Chest Pain) Rx Instructions: do not exceed 3 doses per episode isosorbide mononitrate 60 mg tablet extended release 24 hr 60 mg PO DAILY@13 nicotine (polacrilex) 4 mg Lozenge 4 mg mucous membrane Q2H PRN (Reason: Nicotine Cravings) Qty: 90 3RF melatonin 10 mg Tablet 20 mg PO BEDTIME PRN (Reason: Sleep) gabapentin 600 mg tablet 600 mg PO TID atorvastatin 40 mg tablet 40 mg PO BEDTIME glipizide 10 mg tablet extended release 24hr 10 mg PO QAM clopidogrel 75 mg tablet 75 mg PO DAILY Discharge Orders: Discharge ED (Routine); Ordered 12/23/22 Ordered By: Mt Lorenzana Referrals: Frank Smith DO [Primary Care Provider] - 1 week Patient Instructions: Chest Pain - Noncardiac, Anxiety (ED) Activity Restrictions/Additional Instructions: Your cardiac work-up today was negative. It is felt that his noncardiac chest pain and may be related to your anxiety. Please follow-up with your family practice physician in approximately 7 to 10 days or sooner as needed. Please return to the ER if your chest pain worsens or is uncontrolled. Coding Level of Care Code ED Demand Planning Analyst for Sonya Patrick
[2022-12-23] MEDS: ipratropium-albuterol 3 mL Neb INHALATION (15:49)
[2022-12-23 16:02] LABS: Basophils % 0.4 %; Eosinophils # 0.1 10^3/uL (0.0-0.8); Eosinophils % 1.7 %; Hematocrit 37.2 % (37.0-47.0); Hemoglobin 12.3 g/dL (11.5-15.3); Lymphocytes # 3.4 10^3/uL (0.8-4.8); Lymphocytes % 47.3 %; Mean Corpuscular HGB Conc 33.1 g/dL (30.0-36.0); Mean Corpuscular Hemoglobin 30.5 pg (28.0-34.0); Mean Corpuscular Volume 92.3 fl (81-99); Mean Platelet Volume 8.6 fL (7.4-10.4); Monocytes # 0.5 10^3/uL (0.2-0.9); Monocytes % 7.3 %; Neutrophils # 3.05 10^3/uL (1.8-7.7); Nucleated Red Blood Cells % 0 %; Platelet Count 381 10^3/cmm (130-400); Red Blood Count 4.03 10^6/uL (4.1-5.3); Red Cell Distribution Width 12.8 % (12.1-15.1); White Blood Count 7.1 10^3/uL (4.0-10.0)
[2022-12-23 16:35] LABS: Alanine Aminotransferase 31 U/L (0-33); Albumin Level 4.2 g/dL (3.5-5.2); Alkaline Phosphatase 65 U/L (35-105); Blood Urea Nitrogen 8 mg/dL (8-23); Calcium 9.3 mg/dL (8.5-10.5); Carbon Dioxide 20 mmol/L (22-29); Chloride 107 mmol/L (98-107); Globulin 2.7 g/dL (1.3-4.6); Glomerular Filtration Rate 124.6 mL/min (90-130); Glucose 99 mg/dL (65-115); Osmolality Calculated 290 mOsm/kg (285-295); Sodium 141 mmol/L (136-145); Total Bilirubin 0.4 mg/dL (0.15-1.2); Total Protein 6.9 g/dL (6.6-8.7)
[2022-12-23 16:36] LABS: Troponin(5th) Baseline 6 ng/L (0-10)
[2022-12-23 16:44] LABS: Anion Gap 17.9 (5-19)
[2022-12-23 16:45] LABS: Aspartate Amino Transferase 26 U/L (0-32); Potassium 3.9 mmol/L (3.5-5.1)
--- NOTE | 2022-12-23 17:01 | ECG_ITS ---
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 Measurements Intervals [place] Rate: 64 P: 60 DC: 209 QRS: 65 QRSD: 85 T: 52 QT: 433 QTc: 448 Interpretive Statements SINUS RHYTHM Compared to ECG 12/23/2022 13:53:57 ST (T wave) deviation no longer present Electronically Signed On 12-24-2022 8:36:25 CDT by Tanvir Thrasher M.D. [id number]
[2022-12-23 18:36] LABS: Troponin 5 2HR Delta 0 ABS# (0-10)
== END 2022-12-23 18:16 | disposition home or self-care (01) ==
PROVIDERS: Emergency Provider Emergency Medicine; PCP Family Medicine
DX: R07.89 Other chest pain (principal); F41.9 Anxiety disorder, unspecified; Z79.84 Long term (current) use of oral hypoglycemic drugs; Z79.02 Long term (current) use of antithrombotics/antiplatelets; F17.210 Nicotine dependence, cigarettes, uncomplicated; I25.10 Atherosclerotic heart disease of native coronary artery without angina pectoris; I10 Essential (primary) hypertension; I25.2 Old myocardial infarction; E11.9 Type 2 diabetes mellitus without complications
CPT/HCPCS: 36415; 71045; 80053; 84484; 85025; 93005; 94640; 99285

== ENCOUNTER 2023-01-02 05:52 | Day surgery (SDC) | payer BC, SELFPAY ==
[2022-12-31 08:59] VITALS: BMI 22.6
--- NOTE | 2023-01-02 06:05 | PM.HP ---
Providers/Chief Complaint Primary Care Provider: Frank Smith DO Chief Complaint: Z86.010, K21.9, R11.2, R10.9 History of Present Illness Yessi Schulte is a 62 year old female Medications/Allergies Home Medications Medication Instructions Recorded Confirmed Last Taken Type diphenhydramine HCl 25 mg capsule 25 mg PO Q8H PRN Allergy Symptoms 10/26/20 12/31/22 1 Month Ago History (Benadryl) ~11/30/22 melatonin 10 mg tablet 20 mg PO BEDTIME PRN Sleep 06/14/22 12/31/22 3 Weeks Ago History ~12/10/22 metoprolol succinate 25 mg 25 mg PO BID #90 tabs 08/23/22 12/31/22 12/31/22 Rx tablet,extended release 24 hr isosorbide mononitrate 60 mg 60 mg PO DAILY@13 09/06/22 12/31/22 12/31/22 History tablet,extended release 24 hr nitroglycerin 0.4 mg sublingual 0.4 mg sublingual Q5M PRN Chest 09/06/22 12/31/22 12/25/22 History tablet (Nitrostat) Pain nicotine (polacrilex) 4 mg buccal 4 mg mucous membrane Q2H PRN 09/07/22 12/31/22 12/27/22 Rx lozenge Nicotine Cravings #90 ea albuterol sulfate 90 mcg/actuation 2 puff inhalation QID PRN 09/10/22 12/31/22 12/30/22 Rx aerosol inhaler (ProAir HFA) Shortness Of Breath #8.5 grams ondansetron 4 mg disintegrating 4 mg PO Q6H PRN nausea and 09/10/22 12/31/22 1 Month Ago Rx tablet vomiting #30 tabs ~11/30/22 scopolamine base 1 mg over 3 days 1 patch transdermal Q3D PRN nausea 09/13/22 12/31/22 1 Month Ago Rx transdermal patch and vomiting #4 ea ~11/30/22 pantoprazole 40 mg tablet,delayed 40 mg PO BID 6 weeks #84 tabs 09/19/22 12/31/22 12/29/22 Rx release (Protonix) clonazepam 0.5 mg tablet 0.5 mg PO BID #60 tabs 11/19/22 12/31/2223 Rx atorvastatin 40 mg tablet 40 mg PO BEDTIME 12/23/22 12/31/22 12/29/22 History clopidogrel 75 mg tablet 75 mg PO DAILY 12/23/22 12/31/22 12/27/22 History gabapentin 600 mg tablet 600 mg PO TID 12/23/22 12/31/22 12/29/22 History glipizide 10 mg tablet, extended 10 mg PO QAM 12/23/22 12/31/22 12/29/22 History release 24 hr Allergies Allergy/AdvReac Type Severity Reaction Status Date / Time ciprofloxacin [From Cipro] Allergy Severe Unresponsiv Verified 12/23/22 13:56 e codeine Allergy Severe ALGY-Anaphy Verified 12/23/22 13:56 laxis lidocaine Allergy Severe ALGY-Swell Verified 12/23/22 13:56 Lip/Tongue/Throat morphine Allergy Severe ALGY-Anaphy Verified 12/23/22 13:56 laxis Penicillins Allergy Severe ALGY-Swell Verified 12/23/22 13:56 Lip/Tongue/Throat procaine [From Novocain] Allergy Severe ALGY-Swell Verified 12/23/22 13:56 Lip/Tongue/Throat prochlorperazine Allergy Severe ALGY-Swell Verified 12/23/22 13:56 [From Compazine] Lip/Tongue/Throat adhesive tape Allergy Unknown Unknown Verified 12/23/22 13:56 Sulfa (Sulfonamide Allergy Unknown Unknown Verified 12/23/22 13:56 Antibiotics) PFSH Acute PFSH: Medical History Atherosclerosis of coronary artery Claudication Cough Depression Essential hypertension Fatigue Generalized body aches HTN (hypertension) with goal to be determined Myocardial infarction acute 09/2019 Neutrophilic leukocytosis Pancreatitis SBO (small bowel obstruction) Shortness of breath Type 2 diabetes mellitus without complication, with no history of insulin use UTI (urinary tract infection) Surgical History H/O exploratory laparotomy Multiple bowel resections History of 3 sections History of appendectomy History of incisional hernia repair S/P cardiac cath S/P cholecystectomy S/P DONNA-BSO Status post colonoscopy Family History Mother Cancer, Onset Age: 60 Double mastectomy Sister Cancer, Onset Age: 53 double mastectomy Sister Cancer, Onset Age: 52 partial mastectomy Social History Smoking and tobacco status: current every day smoker cigarettes [ Other cigarette details: On and off ] Alcohol intake: current Alcohol intake frequency: holidays/special occasions only Substance/Drug Use: never Female Reproductive History: Spontaneous abortions: No Vitals/I&O/Wt Weight last 48 hrs Weight 120 lb A&P Assessment and plan (1) History of colon polyps: (2) Abdominal pain: (3) GERD (gastroesophageal reflux disease): (4) Nausea and vomiting: Plan EGD and Colonoscopy Attestations Medical Necessity Statement*: home Coding Level of Care Code Acute Code for Chg Fwd Diagnoses History of colon polyps Z86.010 Abdominal pain R10.9 GERD (gastroesophageal reflux disease) K21.9 Nausea and vomiting R11.2
[2023-01-02 06:20] VITALS: BP 102/78; PULSE 74; RESP 18; TEMP 36.3; O2SAT 96
[2023-01-02] MEDS: sodium chloride 0.9% 1,000 ML 30 ML IV (06:29)
[2023-01-02 06:39] LABS: Glucose Point of Care 120 mg/dL (70-110)
--- NOTE | 2023-01-02 07:07 | ANES.PREANE2 ---
Pre-Anesthetic Assessment Height/Weight: Height 1.55 m Weight 54.431 kg Temp Pulse Resp BP Pulse Ox O2 Del Method 97.3 F L 74 18 102/78 96 Room Air 01/02/23 06:20 01/02/23 06:20 01/02/23 06:20 01/02/23 06:20 01/02/23 06:20 01/02/23 06:20 Operation Date: 01/02/23 07:00 Proposed Procedures p 79018 EGD, [address] Colonoscopy z86.010 , K21.9, R11.2,R10.9(Not Applicable) - Jakob Benites DO s Colonoscopy(Not Applicable) - Jakob Benites DO Was Beta Anshul taken within 24 hours: Yes Was Clonidine taken within 24 hours: N/A Last intake: Intake Last Liquid Date 12/30/22 Last Liquid Time 22:00 Last Solid Date 12/30/22 Last Solid Time 23:59 Social Alcohol and Tobacco THC Exam alert, oriented x 3, clear to auscultation bilaterally and regular rate & rhythm Airway Submandibular: within normal limits Cervical ROM: within normal limits Mallampati: Class II Dentition: false Comments: Comments: upper plate. Missing teeth on bottom History/ROS No significant history except as noted and No significant complaints Pulmonary Chronic Obstructive Pulmonary Disease and Shortness of Breath CV/HEM Coronary Artery Disease, Hypertension and Myocardial Infarction None reported Hepatic None reported GI Gastroesophageal Reflux Disease Metabolic Diabetes Mellitus Musc/skel Osteoarthritis/DJD Neuropsych Anxiety Anesthetic Plan ASA status: 4 Anesthesia: Anesthesia Evaluation and MAC Risk of > 500 ml blood loss (7ml/kg in children): No Medications/Allergies Home Medications Medication Instructions Recorded Confirmed Last Taken Type diphenhydramine HCl 25 mg capsule 25 mg PO Q8H PRN Allergy Symptoms 10/26/20 12/31/22 1 Month Ago History (Benadryl) ~11/30/22 melatonin 10 mg tablet 20 mg PO BEDTIME PRN Sleep 06/14/22 12/31/22 3 Weeks Ago History ~12/10/22 metoprolol succinate 25 mg 25 mg PO BID #90 tabs 08/23/22 12/31/22 01/02/23 05:00 Rx tablet,extended release 24 hr isosorbide mononitrate 60 mg 60 mg PO DAILY@13 09/06/22 12/31/22 01/02/23 05:00 History tablet,extended release 24 hr nitroglycerin 0.4 mg sublingual 0.4 mg sublingual Q5M PRN Chest 09/06/22 12/31/22 12/30/22 History tablet (Nitrostat) Pain nicotine (polacrilex) 4 mg buccal 4 mg mucous membrane Q2H PRN 09/07/22 12/31/22 12/27/22 Rx lozenge Nicotine Cravings #90 ea albuterol sulfate 90 mcg/actuation 2 puff inhalation QID PRN 09/10/22 12/31/22 12/31/22 Rx aerosol inhaler (ProAir HFA) Shortness Of Breath #8.5 grams ondansetron 4 mg disintegrating 4 mg PO Q6H PRN nausea and 09/10/22 12/31/22 1 Month Ago Rx tablet vomiting #30 tabs ~11/30/22 scopolamine base 1 mg over 3 days 1 patch transdermal Q3D PRN nausea 09/13/22 12/31/22 1 Month Ago Rx transdermal patch and vomiting #4 ea ~11/30/22 pantoprazole 40 mg tablet,delayed 40 mg PO BID 6 weeks #84 tabs 09/19/22 12/31/22 12/31/22 Rx release (Protonix) clonazepam 0.5 mg tablet 0.5 mg PO BID #60 tabs 11/19/22 12/31/22 12/31/22 Rx atorvastatin 40 mg tablet 40 mg PO BEDTIME 12/23/22 12/31/22 12/31/22 History clopidogrel 75 mg tablet 75 mg PO DAILY 12/23/22 12/31/22 12/27/22 History gabapentin 600 mg tablet 600 mg PO TID 12/23/22 12/31/22 12/31/22 History glipizide 10 mg tablet, extended 10 mg PO QAM 12/23/22 12/31/22 12/31/22 History release 24 hr Allergies Allergy/AdvReac Type Severity Reaction Status Date / Time ciprofloxacin [From Cipro] Allergy Severe Unresponsiv Verified 12/23/22 13:56 e codeine Allergy Severe ALGY-Anaphy Verified 12/23/22 13:56 laxis lidocaine Allergy Severe ALGY-Swell Verified 12/23/22 13:56 Lip/Tongue/Throat morphine Allergy Severe ALGY-Anaphy Verified 12/23/22 13:56 laxis Penicillins Allergy Severe ALGY-Swell Verified 12/23/22 13:56 Lip/Tongue/Throat procaine [From Novocain] Allergy Severe ALGY-Swell Verified 12/23/22 13:56 Lip/Tongue/Throat prochlorperazine Allergy Severe ALGY-Swell Verified 12/23/22 13:56 [From Compazine] Lip/Tongue/Throat adhesive tape Allergy Unknown Unknown Verified 12/23/22 13:56 Sulfa (Sulfonamide Allergy Unknown Unknown Verified 12/23/22 13:56 Antibiotics) Current Medications Generic Name Dose Route Start Last Admin Trade Name Freq PRN Reason Stop Dose Admin Sodium Chloride 1,000 mls @ 30 mls/hr 01/02/23 06:15 01/02/23 06:29 Sodium Chloride 0.9% IV 01/03/23 06:14 30 mls/hr .Q24H ISABELLA Administration PFSH Anesthesia Medical History Atherosclerosis of coronary artery Claudication Cough Depression Essential hypertension Fatigue Generalized body aches HTN (hypertension) with goal to be determined Myocardial infarction acute 09/2019 Neutrophilic leukocytosis Pancreatitis SBO (small bowel obstruction) Shortness of breath Type 2 diabetes mellitus without complication, with no history of insulin use UTI (urinary tract infection) Surgical History H/O exploratory laparotomy Multiple bowel resections History of 3 sections History of appendectomy History of incisional hernia repair S/P cardiac cath S/P cholecystectomy S/P DONNA-BSO Status post colonoscopy Family History Mother Cancer, Onset Age: 60 Double mastectomy Sister Cancer, Onset Age: 53 double mastectomy Sister Cancer, Onset Age: 52 partial mastectomy Social History Smoking and tobacco status: current every day smoker cigarettes [ Other cigarette details: On and off ] Alcohol intake: current Alcohol intake frequency: holidays/special occasions only Substance/Drug Use: never Female Reproductive History Spontaneous abortions: No Data Anesthesia Cardiac Studies: Echocardiogram 06/14/22
[2023-01-02 07:45] VITALS: BP 100/69; PULSE 75; RESP 18; TEMP 36.7; O2SAT 94
[2023-01-02 07:57] VITALS: BP 126/79; PULSE 75; RESP 18; TEMP 36.6; O2SAT 100
--- NOTE | 2023-01-02 08:00 | ANE.PACU2 ---
Inpatient post-anesthesia follow up: Airway intact: Yes Vital signs: Temperature 98 F Pulse Rate 75 Respiratory Rate 18 Blood Pressure 126/79 Pulse Oximetry 100 Oxygen Delivery Me thod Room Air Oxygen Flow Rate Fraction of Inspir ed Oxygen Hydration adequate: Yes Nausea and vomiting: No Pain level: 1 Mental status: Baseline
== END 2023-01-02 08:07 | disposition home or self-care (01) ==
PROVIDERS: PCP Family Medicine; Visit Provider Surgery
PROC: 0DJ08ZZ Inspection of Upper Intestinal Tract, Via Natural or Artificial Opening Endoscopic (ICD-10-PCS; CPT 43235; principal; 2023-01-02 07:00)
PROC: 0DJD8ZZ Inspection of Lower Intestinal Tract, Via Natural or Artificial Opening Endoscopic (ICD-10-PCS; CPT 45378; 2023-01-02 07:00)
DX: R10.9 Unspecified abdominal pain (principal); Z86.010 Personal history of colon polyps; K21.9 Gastro-esophageal reflux disease without esophagitis; R11.2 Nausea with vomiting, unspecified; J44.9 Chronic obstructive pulmonary disease, unspecified; I25.10 Atherosclerotic heart disease of native coronary artery without angina pectoris; I10 Essential (primary) hypertension; E11.9 Type 2 diabetes mellitus without complications; Z79.84 Long term (current) use of oral hypoglycemic drugs; Z79.02 Long term (current) use of antithrombotics/antiplatelets; F41.9 Anxiety disorder, unspecified; F17.210 Nicotine dependence, cigarettes, uncomplicated; K29.50 Unspecified chronic gastritis without bleeding; D12.5 Benign neoplasm of sigmoid colon
CPT/HCPCS: 36416; 43239; 45385; 82962; 88305; 88342; J2704; J7030

== ENCOUNTER 2023-02-17 10:52 | Inpatient (IN) | payer BC, SELFPAY ==
[2023-02-17 11:00] VITALS: BP 105/79; PULSE 94; RESP 19; TEMP 36.7; O2SAT 98; BMI 22.3
[2023-02-17 11:37] LABS: Basophils % 0.4 %; Eosinophils # 0.1 10^3/uL (0.0-0.8); Eosinophils % 0.5 %; Hematocrit 39.1 % (36-47); Lymphocytes # 2.5 10^3/uL (0.8-4.8); Mean Corpuscular HGB Conc 34.5 g/dL (30-55); Mean Corpuscular Hemoglobin 31.2 pg (27-33); Mean Corpuscular Volume 90.3 fl (85-98); Mean Platelet Volume 8.4 fL (7.4-10.4); Monocytes # 0.4 10^3/uL (0.2-0.9); Monocytes % 4.1 %; Neutrophils # 7.03 10^3/uL (1.8-7.7); Neutrophils % 69.4 %; Nucleated Red Blood Cells % 0 %; Platelet Count 439 10^3/cmm (157-399); Red Blood Count 4.33 10^6/uL (3.85-5.65); Red Cell Distribution Width 13.2 % (12.1-15.1); White Blood Count 10.12 10^3/uL (3.29-11.43)
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
[2023-02-17 12:02] LABS: Alanine Aminotransferase 39 U/L (0-33); Albumin Level 4.2 g/dL (3.5-5.2); Alcohol Level 139 mg/dL (0-10); Alkaline Phosphatase 71 U/L (35-105); Anion Gap 17.6 (5-19); Aspartate Amino Transferase 26 U/L (0-32); Blood Urea Nitrogen 6 mg/dL (8-23); Calcium 8.8 mg/dL (8.5-10.5); Carbon Dioxide 23 mmol/L (22-29); Chloride 109 mmol/L (98-107); Glomerular Filtration Rate 124.6 mL/min (90-130); Glucose 133 mg/dL (65-115); Osmolality Calculated 302 mOsm/kg (285-295); Potassium 3.6 mmol/L (3.5-5.1); Sodium 146 mmol/L (136-145); Total Bilirubin 0.3 mg/dL (0.15-1.2); Total Protein 7.2 g/dL (6.6-8.7)
[2023-02-17 12:04] LABS: Acetaminophen < 5.0 ug/mL (10-30); Salicylate < 0.3 mg/dL (3-10)
[2023-02-17 17:22] VITALS: BP 112/78; PULSE 88; RESP 17; O2SAT 98
[2023-02-17 17:34] VITALS: BP 109/74; PULSE 122; RESP 18; TEMP 37.4; O2SAT 95
[2023-02-17] MEDS: ONDANSETRON 4 MG ODT 1 EACH PO (18:03)
[2023-02-17 18:09] LABS: HCG Qualitative Urine. Negative (Negative)
[2023-02-17 18:13] LABS: Add Urine Microscopic? YES; Bilirubin Urine Neg (Negative); Blood Urine Neg (Negative); Glucose Urine UA Norm (Normal); Ketones Urine Negative (Negative); Leukocyte Esterase Urine Negative (Negative); Nitrate Urine Positive (Negative); Protein Urine Neg (Negative); Urine Appearance Clear (CLEAR); Urine Color Dark Yellow (Yellow); Urobilinogen Urine Norm (Negative); pH Urine 5 (5-7)
[2023-02-17 18:14] LABS: Add Urine Culture? Yes; Bacteria Urine 3+ /hpf; Squamous Epithelial Cell Urine RARE /hpf (0-5)
[2023-02-17 18:37] LABS: Amphetamines Screen Urine Negative (Negative); Barbiturates Screen Urine Negative (Negative); Benzodiazepines Screen Urine Negative (Negative); Cocaine Screen Urine Negative (Negative); Opiate Screen Urine Negative (Negative); PCP Screen Urine Negative (Negative); THC Screen Urine Positive (Negative)
--- NOTE | 2023-02-17 18:38 | XRR_ITS ---
PROCEDURE INFORMATION: Exam: XR Abdomen Exam date and time: 02/17/2023 6:54 PM Age: 62 years old Clinical indication: Nausea and vomiting; Abdominal pain; Generalized; Prior surgery; Surgery date: 6+ months; Surgery type: Spleen. Gb. Colon resection. Hysterectomy. Patient HX: Diffuse abd pain with n/v. ; Additional info: Vomiting with abdominal pain, 28 surgeries on abdomen for obstruction TECHNIQUE: Imaging protocol: Radiologic exam of the abdomen. Views: Frontal supine view of the abdomen. 1 View. COMPARISON: 1. CT abdomen pelvis wo con [id number] 09/06/2022 11:10 AM 2. CR XR KUB portable [id number] 06/23/2021 6:35 AM 3. CR XR abdomen 1V* [id number] 06/21/2021 8:11 PM FINDINGS: Gastrointestinal tract: Relative paucity of bowel gas without air-filled dilated bowel loops or evidence of thickening. Small amount of gas within the ascending colon. Formed stool at the level of the rectum. Intraperitoneal space: Multiple surgical clips in the abdomen. Anastomotic suture at the pelvis. Bones/joints: Vertebral augmentation changes at T12. XR/XR KUB portable [id number] IMPRESSION: Relative paucity of bowel gas without acute findings.
[2023-02-17 20:13] VITALS: BP 129/84; PULSE 102; RESP 16; TEMP 37.4; O2SAT 91
[2023-02-17] MEDS: atorvastatin 40 mg Tablet PO (20:33)
[2023-02-17] MEDS: gabapentin 300 mg Capsule 600 MG PO (20:33)
--- NOTE | 2023-02-17 21:23 | CTR_ITS ---
PROCEDURE INFORMATION: Exam: CT Abdomen And Pelvis Without Contrast Exam date and time: 02/17/2023 9:36 PM Age: 62 years old Clinical indication: Nausea and vomiting; Abdominal pain; Generalized; Prior surgery; Surgery date: 6+ months; Surgery type: Spleen. Gb. Appy. Hysterectomy. Colon resection. Kyphoplasty. Patient HX: Persistent abd pain with n/v. ; Additional info: Rule out obstruction TECHNIQUE: Imaging protocol: Computed tomography of the abdomen and pelvis without contrast. Radiation optimization: All CT scans at this facility use at least one of these dose optimization techniques: automated exposure control; mA and/or kV adjustment per patient size (includes targeted exams where dose is matched to clinical indication); or iterative reconstruction. REPORTING DATA: Count of CT and Cardiac NM exams in prior 12 months: This patient has received 2 known CTs and 0 known cardiac nuclear medicine studies in the 12 months prior to the current study. COMPARISON: 1. CT abdomen pelvis wo con [id number] 09/06/2022 11:[address] abdomen pelvis w con* [id number] 06/21/2021 5:[address] abdomen pelvis w con* [id number] 12/30/2020 2:02 PM RADIATION DOSE METRICS: Total DLP (mGy-cm): 317.09 FINDINGS: Coronary arteries: Coronary artery calcification. Mediastinal space: Postsurgical changes of the gastroesophageal region. Liver: Normal without focal lesions. Gallbladder and bile ducts: Prior cholecystectomy without biliary ductal dilatation. Pancreas: Diffuse pancreatic atrophy. Spleen: Normal. Adrenal glands: Normal. No mass. Kidneys and ureters: Normal. No hydronephrosis. Stomach and bowel: Stable small bowel anastomosis at the left lower abdomen and right lower abdominopelvic region. No bowel dilatation to suggest obstruction. Appendix: No evidence of appendicitis. Intraperitoneal space: No free air, free fluid, or well-organized fluid collection. Surgical changes at the anterior upper abdomen, stable. Vasculature: Heavy systemic atherosclerotic calcification without abdominal aortic aneurysm. Lymph nodes: No enlarged lymph nodes. Urinary bladder: Urinary bladder is unremarkable. Reproductive: The uterus is surgically absent. Bones/joints: No acute fracture. Mild degenerative changes along the spine. Stable augmentation changes at the T12 vertebral body. Soft tissues: Ventral abdominopelvic wall scarring. CT/CT abdomen pelvis wo con [id number] IMPRESSION: 1. No acute findings. Specifically, no findings to suggest bowel obstruction. 2. Chronic and incidental findings as above, to include atherosclerosis.
--- NOTE | 2023-02-17 21:32 | PC.NURSE ---
PT ESCORTED TO CT AT THIS TIME FOR ABD/PELVIS CT W/O CONTRAST, MOLD TECHNICIAN AND SECURITY AT SIDE.
[2023-02-18 06:00] VITALS: BP 109/78; PULSE 94; RESP 18; TEMP 37; O2SAT 95
[2023-02-18 08:09] LABS: Glucose Point of Care 174 mg/dL (70-110)
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
[2023-02-18] MEDS: CLONazepam 0.5 mg Tablet PO ×2 (09:03→18:08)
[2023-02-18] MEDS: gabapentin 300 mg Capsule 600 MG PO ×3 (09:03→21:15)
[2023-02-18] MEDS: pantoprazole DR 40 mg Tablet PO ×2 (09:04→18:08)
[2023-02-18] MEDS: clopidogrel 75 mg Tablet PO (09:04)
[2023-02-18] MEDS: metoprolol succinate ER (24 HR) 25 mg Tablet PO ×2 (09:04→18:08)
[2023-02-18] MEDS: NON-FORMULARY MEDICATION (Glipizide 10 MG) 10 EACH PO (10:29)
[2023-02-18 12:18] LABS: Glucose Point of Care 105 mg/dL (70-110)
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
[2023-02-18] MEDS: isosorbide mononitrate ER 60 mg Tablet PO (13:50)
[2023-02-18 14:00] VITALS: BP 121/72; PULSE 77; RESP 18; TEMP 36.6; O2SAT 95
[2023-02-18 17:33] LABS: Glucose Point of Care 100 mg/dL (70-110)
[2023-02-18 20:26] VITALS: BP 91/59; PULSE 77; RESP 16; TEMP 37.2; O2SAT 98
[2023-02-18 20:36] LABS: Glucose Point of Care 175 mg/dL (70-110)
[2023-02-18] MEDS: atorvastatin 40 mg Tablet PO (21:15)
[2023-02-19 06:00] VITALS: BP 128/86; PULSE 71; RESP 16; TEMP 36.7; O2SAT 95
[2023-02-19 07:44] LABS: Glucose Point of Care 183 mg/dL (70-110)
[2023-02-19] MEDS: metoprolol succinate ER (24 HR) 25 mg Tablet PO (09:11)
[2023-02-19] MEDS: pantoprazole DR 40 mg Tablet PO (09:11)
[2023-02-19] MEDS: clopidogrel 75 mg Tablet PO (09:11)
[2023-02-19] MEDS: gabapentin 300 mg Capsule 600 MG PO (09:12)
[2023-02-19] MEDS: CLONazepam 0.5 mg Tablet PO (09:12)
[2023-02-19] MEDS: NON-FORMULARY MEDICATION (Glipizide 10 MG) 10 EACH PO (09:12)
[2023-02-19 11:04] VITALS: BP 128/86; PULSE 71; RESP 16; TEMP 36.7; O2SAT 95
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
--- NOTE | 2023-02-19 11:27 | PC.NURSE ---
written discharge reviewed and left with patient upon discharge. pt left in pov with spouse stated complainces and understanding of instructions. pt home medication returned.
== END 2023-02-19 11:28 | disposition home or self-care (01) | DRG 881 ==
LOC: ER 13:12 → NP 17:06
PROVIDERS: Admitting Provider Psychiatry & Neurology Psychiatry; Emergency Provider Emergency Medicine; PCP Family Medicine; Visit Provider Psychiatry & Neurology Psychiatry
DX: F32.A Depression, unspecified (principal); R45.851 Suicidal ideations; Z91.128 Patient's intentional underdosing of medication regimen for other reason; Z62.810 Personal history of physical and sexual abuse in childhood; F43.10 Post-traumatic stress disorder, unspecified; F12.90 Cannabis use, unspecified, uncomplicated; Z81.8 Family history of other mental and behavioral disorders; F17.210 Nicotine dependence, cigarettes, uncomplicated; Z79.84 Long term (current) use of oral hypoglycemic drugs; Z79.51 Long term (current) use of inhaled steroids; Z79.02 Long term (current) use of antithrombotics/antiplatelets; I25.10 Atherosclerotic heart disease of native coronary artery without angina pectoris; I10 Essential (primary) hypertension; I25.2 Old myocardial infarction; E11.9 Type 2 diabetes mellitus without complications; Z87.440 Personal history of urinary (tract) infections
CPT/HCPCS: 36415; 36416; 74018; 74176; 80053; 80306; 80307; 81001; 81025; 82962; 85025; 87077; 87086; 87186; 97165; 99285

== ENCOUNTER 2023-03-09 12:21 | Outpatient (CLI) | payer BC, SELFPAY ==
[2023-03-09 13:05] LABS: Basophils % 0.3 %; Eosinophils # 0.2 10^3/uL (0.0-0.8); Eosinophils % 2.2 %; Hematocrit 38.3 % (36-47); Lymphocytes # 3.1 10^3/uL (0.8-4.8); Lymphocytes % 44.6 %; Mean Corpuscular HGB Conc 34.5 g/dL (30-55); Mean Corpuscular Hemoglobin 31.3 pg (27-33); Mean Corpuscular Volume 90.8 fl (85-98); Mean Platelet Volume 8.6 fL (7.4-10.4); Monocytes # 0.5 10^3/uL (0.2-0.9); Neutrophils # 3.12 10^3/uL (1.8-7.7); Neutrophils % 45.6 %; Nucleated Red Blood Cells % 0 %; Platelet Count 377 10^3/cmm (157-399); Red Blood Count 4.22 10^6/uL (3.85-5.65); Red Cell Distribution Width 13.1 % (12.1-15.1); White Blood Count 6.84 10^3/uL (3.29-11.43)
[2023-03-09 13:21] LABS: Alanine Aminotransferase 41 U/L (0-33); Albumin Level 4.3 g/dL (3.5-5.2); Alkaline Phosphatase 77 U/L (35-105); Anion Gap 15.9 (5-19); Aspartate Amino Transferase 25 U/L (0-32); Blood Urea Nitrogen 15 mg/dL (8-23); Calcium 9.2 mg/dL (8.5-10.5); Carbon Dioxide 22 mmol/L (22-29); Chloride 103 mmol/L (98-107); Globulin 2.8 g/dL (1.3-4.6); Glucose 131 mg/dL (65-115); Osmolality Calculated 287 mOsm/kg (285-295); Potassium 3.9 mmol/L (3.5-5.1); Sodium 137 mmol/L (136-145); Total Bilirubin 0.5 mg/dL (0.15-1.2); Total Protein 7.1 g/dL (6.6-8.7)
[2023-03-13 14:30] LABS: Immunoglobulin A 138 mg/dL (70-320)
[2023-03-14 02:19] LABS: Gliadin Ab.IgA 4.9 U/mL; Gliadin Ab.IgG 11.9 U/mL
[2023-03-14 03:49] LABS: Tissue Transglutaminase IgA Ab <1.0 U/mL; Tissue transglutaminase Ab.IgG <1.0 U/mL
[2023-03-18 20:09] LABS: Pancreatic Elastase-1 77 mcg/g
== END 2023-03-09 12:22 | disposition home or self-care (01) ==
PROVIDERS: PCP Family Medicine; Visit Provider Internal Medicine Gastroenterology
DX: K50.80 Crohn's disease of both small and large intestine without complications (principal); R19.7 Diarrhea, unspecified
CPT/HCPCS: 36415; 80053; 82784; 83516; 83520; 83993; 85025; 86140; 87045; 87177; 87209; 87324; 87427; 87449

== ENCOUNTER 2023-03-21 07:12 | Outpatient (CLI) | payer BC, SELFPAY ==
--- NOTE | 2023-03-21 | ECG_ITS ---
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 Interpretive Statements NAME OF STUDY: LEXISCAN SESTAMIBI STRESS TEST INDICATION: [Chest Pain, ] Procedure: At the baseline, the blood pressure was 122/69 mmHg with a heart rate of 71 bpm. The electrocardiogram showed normal sinus rhythm, normal axis with non-specific ST T wave changes The Lexiscan was infused over a period of 20 seconds. A total of 0.4 mg of Lexiscan was infused. The stress phase was continued for a total of 5 minutes. Heart rate was at the end of stress phase was 88 bpm and a blood pressure of 118/75 mmHg. The EKG at the peak infusion revealed normal sinus rhythm with no significant ST-T wave changes. Sestamibi was injected 20 seconds after the Lexiscan infusion. Blood pressure at the end of recovery phase was 124/75 mmHg with a heart rate of 86 bpm. Conclusion: 1. Normal EKG response to Lexiscan infusion 2. No Lexiscan induced chest pain or cardiac arrhythmia. 3. Normal blood pressure and heart rate response. 4. Sestamibi/sestamibi perfusion scan pending; see separate report. Electronically Signed On 03-21-2023 12:44:24 CDT by Tanvir Thrasher M.D. [id number]
[2023-03-21 07:33] VITALS: BMI 21.3
--- NOTE | 2023-03-21 07:34 | NMCV_ITS ---
NM cliff perf SPECT r/s* [id number] Yessi Schulte Age: 62 Gender: F : 1960 Exam Date: 03/21/2023 07:34 Ordering Phys: Tanvir Thrasher M.D ([email or web address]) Technologist: ISHMAEL Burgos Exam Location: [facility] Indications: CHEST PAIN, SHORTNESS OF BREATH STRESS TEST Please see separate stress test report in [facility] for full findings IMAGE PROTOCOL Rest/Stress 1 Lexiscan Day Radiopharmaceutical Dose (mCi) Administration Site Administered by Rest: Tc-99m 10.7 IV ISHMAEL Duncan Sestamibi Stress:Tc-99m 32.8 IV ISHMAEL Burgos Sestamilyssa Rest: 21-Mar-2023 60 Discovery 630 Stress: 21-Mar-2023 30 Discovery 630 0.4mg Lexiscan. Images obtained in supine and prone position. SPECT RESULTS Technical Quality: Excellent Raw Data Analysis: Normal Image Corrections: No attenuation or motion correction applied Summed Stress Score: 0 Summed Rest Score: 0 Summed Difference Score: 0 PERFUSION FINDINGS SPECT images demonstrate homogeneous tracer distribution throughout the myocardium. FUNCTIONAL RESULTS (calculated via Gated SPECT) Stress Image LV EF (%): 88 Stress EDV (mL):42 TID: 1.22 Stress ESV (mL):5 FUNCTIONAL FINDINGS: There is normal left ventricular systolic function. TID ratio is elevated but in absence of perfusion defect, significance of this finding is equivocal IMPRESSIONS 1. Normal myocardial perfusion imaging with no evidence of ischemia 2. LV systolic function is normal Tanvir Thrasher MD (Electronically Signed) Final Date: 21 March 2023 12:43 S
[2023-03-21] MEDS: regadenoson 0.4 Mg/5 ml Syringe IVP (08:56)
[2023-03-21 09:06] VITALS: BP 124/75; PULSE 86
== END 2023-03-21 07:13 | disposition home or self-care (01) ==
LOC: CDL 07:13
PROVIDERS: PCP Family Medicine; Visit Provider Internal Medicine
DX: R07.9 Chest pain, unspecified (principal); R06.02 Shortness of breath
CPT/HCPCS: 36415; 78452; 93017; 96374; A9500; J2785

== ENCOUNTER 2023-04-24 11:31 | Outpatient (CLI) | payer BC, SELFPAY ==
[2023-05-01 02:54] LABS: Fecal % Lipid 2.44 %; Fecal Lipids 24 hrs 0.2 g/24 h (<7.0)
== END 2023-04-24 11:32 | disposition home or self-care (01) ==
PROVIDERS: PCP Family Medicine; Visit Provider Family Medicine
DX: K86.89 Other specified diseases of pancreas (principal)
CPT/HCPCS: 82710

== ENCOUNTER → 2023-05-06 15:19 | Outpatient (BNVA) | payer BC, SELFPAY | PROVIDERS: PCP Family Medicine; Visit Provider Family Medicine | DX: E11.8 Type 2 diabetes mellitus with unspecified complications (principal); R19.7 Diarrhea, unspecified; R10.9 Unspecified abdominal pain; G89.29 Other chronic pain; R11.2 Nausea with vomiting, unspecified | CPT/HCPCS: 83036; 86003 ==

== ENCOUNTER → 2023-05-14 11:46 | Outpatient (BNVA) | payer BC, SELFPAY | PROVIDERS: PCP Family Medicine; Visit Provider Family Medicine | DX: R10.9 Unspecified abdominal pain (principal); G89.29 Other chronic pain; R19.7 Diarrhea, unspecified; F43.10 Post-traumatic stress disorder, unspecified; J44.9 Chronic obstructive pulmonary disease, unspecified; K56.609 Unspecified intestinal obstruction, unspecified as to partial versus complete obstruction; K50.919 Crohn's disease, unspecified, with unspecified complications | CPT/HCPCS: 86003; 86008 ==

== ENCOUNTER 2023-10-21 08:20 | Emergency (ER) | payer BC, SELFPAY ==
[2023-10-21] VITALS (7 sets, daily range): BP systolic 111–129; BP diastolic 85–95; PULSE 101–109; RESP 18–20; TEMP 36.6; O2SAT 92–95; BMI 22.3
--- NOTE | 2023-10-21 08:46 | W.ED.ALLEREA ---
HPI - Allergic Reaction General: Chief complaint: Allergic Reaction Stated complaint: Allergic Reaction Time Seen by Provider: 10/21/23 08:28 History of Present Illness: HPI narrative: 63-year-old female with a history of coronary artery disease, type 2 diabetes mellitus, tobacco dependence and hypertension who presents to the emergency room with a rash. She also says she feels somewhat short of breath. She says this started after she took medications for surgery she just had. She thinks both the oxycodone and methocarbamol caused her to have a rash and shortness of breath. No chest pain. No altered mental status. No fevers. No cough. Review of Systems Narrative: Constitutional symptoms: Negative except as documented in HPI. Skin symptoms: Negative except as documented in HPI. Eye symptoms: Negative except as documented in HPI. ENMT symptoms: Negative except as documented in HPI. Respiratory symptoms: Negative except as documented in HPI. Cardiovascular symptoms: Negative except as documented in HPI. Gastrointestinal symptoms: Negative except as documented in HPI. Genitourinary symptoms: Negative except as documented in HPI. Musculoskeletal symptoms: Negative except as documented in HPI. Neurologic symptoms: Negative except as documented in HPI. Psychiatric symptoms: Negative except as documented in HPI. Endocrine symptoms: Negative except as documented in HPI. PFSH ED PFSH: Medical History Psychiatric care UTI (urinary tract infection) Claudication Atherosclerosis of coronary artery Type 2 diabetes mellitus without complication, with no history of insulin use Shortness of breath Cough Generalized body aches Fatigue Essential hypertension Neutrophilic leukocytosis Pancreatitis Myocardial infarction acute 09/2019 SBO (small bowel obstruction) HTN (hypertension) with goal to be determined Depression Surgical History History of 3 sections S/P DONNA-BSO History of incisional hernia repair Status post colonoscopy S/P cardiac cath History of appendectomy H/O exploratory laparotomy Multiple bowel resections S/P cholecystectomy Family History Mother Cancer, Onset Age: 60 Double mastectomy Sister Cancer, Onset Age: 53 double mastectomy Sister Cancer, Onset Age: 52 partial mastectomy Social History (Reviewed 08/26/23 @ 14:24 by Abiodun Lebron Smoking and tobacco/nicotine status: current every day tobacco/nicotine user cigarettes [ Other cigarette details: On and off ] Alcohol intake: current Alcohol intake frequency: holidays/special occasions only Substance/Drug Use: never Female Reproductive History: Spontaneous abortions: No Physical Exam Narrative: EXAM NARRATIVE: General: Alert, no acute distress. Skin: Warm, dry. Diffuse scattered raised red bumps. Primarily on her torso and chest. Head: Normocephalic, atraumatic. Neck: Supple, trachea midline. Eye: Extraocular movements are intact. Ears, nose, mouth and throat: mucosa moist. Cardiovascular: Regular, Normal peripheral perfusion. Respiratory: Lungs are clear to auscultation, respirations are non-labored, breath sounds are equal, Symmetrical chest wall expansion. Gastrointestinal: Soft, Nontender, Non distended, Normal bowel sounds. Musculoskeletal: Normal ROM, no deformity. Neurological: Alert and oriented, No focal neurological deficit observed. Psychiatric: Cooperative, appropriate mood & affect. Course Vital Signs: Vital signs: Vital Signs Temperature 97.9 F 10/21/23 08:30 Pulse Rate 104 H 10/21/23 09:43 Respiratory Rate 20 H 10/21/23 09:32 Blood Pressure 111/85 10/21/23 08:30 Pulse Oximetry 94 10/21/23 09:32 Oxygen Delivery Me thod Room Air 10/21/23 09:32 MDM - Allergic Reaction Medical Decision Making After patient received steroids, she begins to complain of severe pain. She says she has not had any pain medication 24 hours and she has had a extremely severe surgery. She is concerned when she arrives that the oxycodone/acetaminophen is what she is having allergic reaction to. However when asked her what she can take she lists Percocet, Demerol and Darvocet as medications which she can tolerate. She also says she could not take Dilaudid. I explained to her that the oxycodone she has here is actually just Percocet and that is likely not what she is having a reaction to since she has tolerated it in the past. Assessment and plan: Allergic reaction Postsurgical pain -Breathing treatment and Solu-Medrol. -IV Dilaudid. - Discharged home - Discussed plan with patient. Answered any questions. - Evaluation and treatment of this problem were appropriate in the emergency setting. No radiology studies performed this visit Discharge Plan Discharge Patient Disposition: Home Clinical Impression: Allergic reaction, Acute postoperative pain Condition: Stable Prescriptions: New dexamethasone 6 mg tablet 6 mg PO DAILY 5 Days Qty: 5 0RF No Action aspirin 81 mg tablet,delayed release (DR/EC) 81 mg PO DAILY Qty: 90 3RF ondansetron 4 mg tablet,disintegrating 4 mg PO Q6H PRN (Reason: nausea and vomiting) Qty: 30 5RF scopolamine base 1 mg over 3 days patch 3 day See Rx Instructions .ROUTE .COMPLEX Qty: 4 0RF Dose Instruction: APPLY 1 PATCH TOPICALLY TO THE SKIN EVERY 3 DAYS NEEDED FOR NAUSEA OR VOMITING Rx Instructions: APPLY 1 PATCH TOPICALLY TO THE SKIN EVERY 3 DAYS NEEDED FOR NAUSEA OR VOMITING (DME) pen needle, diabetic [TechLITE Pen Needle] 31 gauge x 3/16 needle See Rx Instructions .Route Qty: 100 0RF Rx Instructions: As directed - TEST UP TO 3 TIMES DAILY albuterol sulfate 90 mcg/actuation HFA aerosol inhaler See Rx Instructions .ROUTE .COMPLEX Qty: 8.5 0RF Dose Instruction: INHALE 2 PUFFS BY MOUTH FOUR TIMES DAILY NEEDED FOR SHORTNESS OF BREATH Rx Instructions: INHALE 2 PUFFS BY MOUTH FOUR TIMES DAILY NEEDED FOR SHORTNESS OF BREATH Pancreaze 2,600-8,800- 15,200 unit capsule,delayed release(DR/EC) 2 cap PO TID Qty: 180 2RF Rx Instructions: Take 2 capsules before each meal. atorvastatin 40 mg tablet See Rx Instructions .ROUTE .COMPLEX Qty: 90 3RF Dose Instruction: TAKE 1 TABLET BY MOUTH AT BEDTIME Rx Instructions: TAKE 1 TABLET BY MOUTH AT BEDTIME clonazepam 0.5 mg tablet 0.5 mg PO BID Qty: 60 5RF clopidogrel 75 mg tablet 75 mg PO DAILY Qty: 90 3RF Hold Instructions: Resume on 01/04/23. insulin glargine [Lantus Solostar U-100 Insulin] 100 unit/mL (3 mL) insulin pen 10 unit SUBCUT DAILY Qty: 15 1RF isosorbide mononitrate 60 mg tablet extended release 24 hr 60 mg PO BID Qty: 180 3RF metoprolol succinate 25 mg tablet extended release 24 hr 25 mg PO BID Qty: 180 3RF pantoprazole [Protonix] 40 mg tablet,delayed release (DR/EC) 40 mg PO DAILY 90 Days Qty: 90 3RF prazosin 2 mg capsule 2 mg PO .at bedtime Qty: 30 5RF conjugated estrogens 0.625 mg/gram cream 0.625 mg vaginal DAILY Qty: 30 5RF Rx Instructions: Use 25 days, then off for 5 days before repeating cycle. gabapentin 600 mg tablet See Rx Instructions .ROUTE .COMPLEX Qty: 90 0RF Dose Instruction: TAKE 1 TABLET BY MOUTH THREE TIMES DAILY Rx Instructions: TAKE 1 TABLET BY MOUTH THREE TIMES DAILY nitroglycerin [Nitrostat] 0.4 mg Tablet, Sublingual 0.4 mg SUBLINGUAL Q5M PRN (Reason: Chest Pain) Rx Instructions: do not exceed 3 doses per episode Discharge Orders: Discharge ED (Routine); Ordered 10/21/23 Ordered By: Rekha Gonzalez Referrals: Frank Smith DO [Primary Care Provider] - 4-7 days Patient Instructions: Opioid Safety, Pain Management Activity Restrictions/Additional Instructions: Please keep any scheduled postoperative visits and if you continue to have pain issues contact your surgeon, Dr. Lam. Thank you for choosing [facility] for your healthcare needs today. Please realize this is an emergency room and that we are providing you with a medical screening exam and this may not be complete and all inclusive of all the testing and or work up that you may need to determine your ailment or severity of your illness. You have been screened and evaluated and felt safe for discharge. Health conditions do change or evolve sometimes and as such it is important that you follow up with your Primary Doctor to be re checked, 3-5 days is a general good time frame for follow up. You are always welcome to return to the ED for re assessment if your symptoms are worsening or you have new concerns Coding Level of Care Code ED Purchasing Administrator for Sonya Patrick
[2023-10-21] MEDS: methylPREDNISolone sod succ 125 mg/2 mL INJ IVP (09:01)
[2023-10-21] MEDS: HYDROmorphone 1 mg/mL INJ 1 mL IVP (09:31)
[2023-10-21] MEDS: albuterol 2.5 mg/3 mL Neb INHALATION (09:37)
[2023-10-21] MEDS: ipratropium-albuterol 3 mL Neb INHALATION (09:37)
== END 2023-10-21 10:12 | disposition home or self-care (01) ==
PROVIDERS: Emergency Provider Emergency Medicine; PCP Family Medicine
DX: T78.40XA Allergy, unspecified, initial encounter (principal); G89.18 Other acute postprocedural pain; Z79.82 Long term (current) use of aspirin; Z79.02 Long term (current) use of antithrombotics/antiplatelets; Z79.4 Long term (current) use of insulin; Z72.0 Tobacco use; I25.10 Atherosclerotic heart disease of native coronary artery without angina pectoris; E11.9 Type 2 diabetes mellitus without complications; I10 Essential (primary) hypertension; I25.2 Old myocardial infarction; X58.XXXA Exposure to other specified factors, initial encounter
CPT/HCPCS: 94640; 96374; 96375; 99284; J1170; J2919; J7613

== ENCOUNTER 2024-03-10 15:11 | Emergency (ER) | payer BC, SELFPAY ==
[2024-03-10] VITALS (12 sets, daily range): BP systolic 130–156; BP diastolic 76–116; PULSE 69–90; RESP 13–24; TEMP 36.5; O2SAT 95–98; BMI 21.7
--- NOTE | 2024-03-10 15:25 | XRR_ITS ---
PROCEDURE INFORMATION: Exam: XR Chest Exam date and time: 03/10/2024 3:31 PM Age: 63 years old Clinical indication: Pain; Angina pectoris; Additional info: Cp TECHNIQUE: Imaging protocol: Radiologic exam of the chest. Views: 1 view. COMPARISON: CR XR chest 1V portable [id number] 12/23/2022 3:22 PM FINDINGS: Lungs: Unremarkable. No consolidation or mass. Pleural spaces: Unremarkable. No pleural effusion. No pneumothorax. Heart/Mediastinum: Unremarkable. No cardiomegaly. Bones/joints: Unremarkable. XR/XR chest 1V portable [id number] IMPRESSION: No acute findings.
--- NOTE | 2024-03-10 15:28 | ECG_ITS ---
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 Measurements Intervals [place] Rate: 77 P: 54 [place]: 173 QRS: 46 QRSD: 68 T: 40 QT: 364 QTc: 414 Interpretive Statements SINUS RHYTHM INTERPRETATION BASED ON A DEFAULT AGE OF 40 YEARS Compared to ECG 12/23/2022 17:06:56 No significant changes Electronically Signed On 03-11-2024 01:12:07 CDT by Hernan Coffman M.D. [email or web address]
--- NOTE | 2024-03-10 16:19 | ED_ITS ---
Documented by User: Uriel Bae, 03/11/24 05:56 HPI - Chest Pain 2 General: Chief Complaint: Chest Pain Stated Complaint: chest pain Time Seen by Provider: 03/10/24 15:34 History of Present Illness: 63-year-old female presents to the emerg ency room complaining of chest pain right side arm and jaw. She did take nitro at home with no relief. She does have a history of coronary disease. She had an RI in December of this year 2 prior to that. She has some nausea shortness of breath and chest pain. She is mild chest discomfort at this time. Associated symptoms: Reports dyspnea; Deny abdominal pain or fever(s) Related Data Home Medications Medication Instructions Recorded Confirmed nitroglycerin 0.4 mg sublingual 0.4 mg sublingual Q5M PRN Chest 09/06/22 02/11/24 tablet (Nitrostat) Pain Previous Rx's Medication Instructions Recorded ondansetron 4 mg disintegrating 4 mg PO Q6H PRN nausea and 01/17/23 tablet vomiting #30 tabs aspirin 81 mg tablet,delayed 81 mg PO DAILY #90 tabs 02/25/23 release scopolamine base 1 mg over 3 days See Rx Instructions .Route 07/29/23 transdermal patch .COMPLEX #4 patches pen needle, diabetic 31 gauge x #100 ea 08/15/2308/09 (TechLITE Pen Needle) albuterol sulfate 90 mcg/actuation See Rx Instructions .Route 08/19/23 aerosol inhaler .COMPLEX #8.5 grams clonazepam 0.5 mg tablet 0.5 mg PO BID #60 tabs 08/21/23 clopidogrel 75 mg tablet 75 mg PO DAILY #90 tabs 08/21/23 conjugated estrogens 0.625 mg/gram 0.625 mg vaginal DAILY #30 grams 08/21/23 vaginal cream insulin glargine 100 unit/mL (3 10 unit (0.1 mL) SUBCUT DAILY #15 08/21/23 mL) subcutaneous pen (Lantus mL Solostar U-100 Insulin) isosorbide mononitrate 60 mg 60 mg PO BID #180 tabs 08/21/23 tablet,extended release 24 hr metoprolol succinate 25 mg 25 mg PO BID #180 tabs 08/21/23 tablet,extended release 24 hr pantoprazole 40 mg tablet,delayed 40 mg PO DAILY 90 days #90 tabs 08/21/23 release (Protonix) prazosin 2 mg capsule 2 mg PO .at bedtime #30 caps 08/21/23 gabapentin 600 mg tablet See Rx Instructions .Route 09/02/23 .COMPLEX #90 tabs epinephrine 0.3 mg/0.3 mL 0.3 mg (0.3 mL) IM Q4H PRN 10/30/23 injection, auto-injector (EpiPen anaphylaxis #2 ea 2-Redd) atorvastatin 40 mg tablet See Rx Instructions .Route 11/01/23 .COMPLEX #90 tabs lipase 2,600-protease 2 cap PO TID #180 caps 11/22/23 8,800-amylase 15,200 unit capsule, delayed rel (Pancreaze) amlodipine 5 mg tablet 5 mg PO DAILY #90 tabs 02/11/24 Allergies Allergy/AdvReac Type Severity Reaction Status Date / Time ciprofloxacin [From Cipro] Allergy Severe Unresponsiv Verified 07/22/23 14:29 e codeine Allergy Severe ALGY-Anaphy Verified 07/22/23 14:29 laxis lidocaine Allergy Severe ALGY-Swell Verified 07/22/23 14:29 Lip/Tongue/Throat morphine Allergy Severe ALGY-Anaphy Verified 07/22/23 14:29 laxis Penicillins Allergy Severe ALGY-Swell Verified 07/22/23 14:29 Lip/Tongue/Throat procaine [From Novocain] Allergy Severe ALGY-Swell Verified 07/22/23 14:29 Lip/Tongue/Throat prochlorperazine Allergy Severe ALGY-Swell Verified 07/22/23 14:29 [From Compazine] Lip/Tongue/Throat adhesive tape Allergy Unknown Unknown Verified 07/22/23 14:29 Sulfa (Sulfonamide Allergy Unknown Unknown Verified 07/22/23 14:29 Antibiotics) methocarbamol Allergy ALGY-Redness Verified 10/21/23 10:07 of Skin Review of Systems 2 Const: Denies: fever(s) or chills Card: Reports: chest pain Resp: Reports: dyspnea GI: Denies: abdominal pain : Denies: dysuria, urinary frequency or urinary urgency Musc: Denies: neck pain or back pain Skin/Breast: Denies: rash PFSH ED 2 PFSH: Medical History UTI (urinary tract infection) Claudication Atherosclerosis of coronary artery Type 2 diabetes mellitus without complication, with no history of insulin use Shortness of breath Cough Generalized body aches Fatigue Essential hypertension Neutrophilic leukocytosis Pancreatitis Myocardial infarction acute 09/2019 SBO (small bowel obstruction) HTN (hypertension) with goal to be determined Depression Surgical History History of 3 sections S/P DONNA-BSO History of incisional hernia repair Status post colonoscopy S/P cardiac cath History of appendectomy H/O exploratory laparotomy Multiple bowel resections S/P cholecystectomy Family History Mother Cancer, Onset Age: 60 Double mastectomy Sister Cancer, Onset Age: 53 double mastectomy Sister Cancer, Onset Age: 52 partial mastectomy Social History Smoking and tobacco/nicotine status: current every day tobacco/nicotine user (1/2 pack a day) cigarettes [ Other cigarette details: On and off ] Alcohol intake: current Alcohol intake frequency: holidays/special occasions only Substance/Drug Use: never Female Reproductive History: Spontaneous abortions: No Physical Exam 2 Const: GENERAL APPEARANCE: cooperative ORIENTATION/CONSCIOUSNESS: Yes awake, Yes oriented to person, Yes oriented to place and Yes oriented to time HENMT: COMMON NORMALS: normocephalic, atraumatic and hearing grossly normal bilaterally HEAD & SCALP: normocephalic and atraumatic Resp: COMMON NORMALS: normal respiratory effort, No retractions, No use of accessory muscles and clear to auscultation bilaterally AUSCULTATION: clear to auscultation bilaterally Cardio: COMMON NORMALS: regular rate, regular rhythm and No murmurs present (Cardio) RATE: regular rate RHYTHM: regular rhythm GI: COMMON NORMALS: Soft to palpation and No hepatosplenomegaly present A USCULTATION: Yes normoactive bowel sounds PALPATION: Yes Soft to palpation, No Tenderness to palpation present (GI), No Guarding due to palpation present (GI) and Yes No hepatosplenomegaly present Extremity: COMMON NORMALS: normal to inspection, capillary refill normal, no clubbing, cyanosis or edema, no calf tenderness and no pedal edema Neuro: SENSORIUM/ORIENTATION: Yes oriented to person, Yes oriented to place and Yes oriented to time Skin: COMMON NORMALS: no rashes or lesions noted GENERAL SKIN EXAM: no rashes or lesions noted Course 2 Vital Signs: Vital signs: Vital Signs Temperature 97.7 F 03/10/24 15:22 Pulse Rate 80 03/10/24 20:10 Respiratory Rate 16 03/10/24 20:00 Blood Pressure 154/116 03/10/24 20:10 Pulse Oximetry 95 03/10/24 20:10 Oxygen Delivery Hi thod Room Air 03/10/24 17:30 MDM - Chest Pain Medical Decision Making Care signed out to Dr. Gonzalez at change of shift. See final notes for diagnosis and disposition. Patient care was transitioned to or at shift change awaiting final troponins Troponin has remained negative. EKGs are nonischemic. Assessment and plan: Noncardiac chest pain - Discharged home - Discussed plan with patient. Answered any questions. - Evaluation and treatment of this problem were appropriate in the emergency setting. Medical Records I reviewed the patient's medical records. Lab Data I reviewed the patient's lab results. 03/10/24 16:45 03/10/24 16:45 Radiology Impressions Chest X-Ray 03/10/24 15:25 IMPRESSION: No acute findings. Laboratory Results WBC 6.48 10^3/uL (3.29-11.43) 03/10/24 16:45 RBC 4.60 10^6/uL (3.85-5.65) 03/10/24 16:45 Hgb 14.40 g/dL (11.27-16.99) 03/10/24 16:45 Hct 41.0 % (36-47) 03/10/24 16:45 MCV 89.1 fl (85-98) 03/10/24 16:45 MCH 31.3 pg (27-33) 03/10/24 16:45 MCHC 35.1 g/dL (30-55) 03/10/24 16:45 RDW 12.9 % (12.1-15.1) 03/10/24 16:45 Plt Count 358 10^3/cmm (157-399) 03/10/24 16:45 MPV 8.5 fL (7.4-10.4) 03/10/24 16:45 Neut % (Auto) 54.1 % 03/10/24 16:45 Lymph % (Auto) 38.3 % 03/10/24 16:45 Beckham % (Auto) 6.0 % 03/10/24 16:45 Eos % (Auto) 1.1 % 03/10/24 16:45 Baso % (Auto) 0.2 % 03/10/24 16:45 Neut # (Auto) 3.51 10^3/uL (1.8-7.7) 03/10/24 16:45 Lymph # (Auto) 2.5 10^3/uL (0.8-4.8) 03/10/24 16:45 Beckham # (Auto) 0.4 10^3/uL (0.2-0.9) 03/10/24 16:45 Eos # (Auto) 0.1 10^3/uL (0.0-0.8) 03/10/24 16:45 Baso # (Auto) 0.0 10^3/uL (0.0-0.1) 03/10/24 16:45 Nucleated RBC % (auto) 0 % 03/10/24 16:45 Nucleated RBCs # 0.0 /100WBC 03/10/24 16:45 PT 13.10 SECONDS (12.1-14.9) 03/10/24 16:45 INR 0.96 (0.8-1.2) 03/10/24 16:45 Sodium 143 mmol/L (136-145) 03/10/24 16:45 Potassium 4.3 mmol/L (3.5-5.1) 03/10/24 16:45 Chloride 108 mmol/L (98-107) H 03/10/24 16:45 Carbon Dioxide 25 mmol/L (22-29) 03/10/24 16:45 Anion Gap 14.3 (5-19) 03/10/24 16:45 BUN 8 mg/dL (8-23) 03/10/24 16:45 Creatinine 0.7 mg/dL (0.5-0.9) 03/10/24 16:45 GFR Calculation 84.2 mL/min (90-130) L 03/10/24 16:45 Glucose 94 mg/dL (65-115) 03/10/24 16:45 Calculated Osmolality 294 mOsm/kg (285-295) 03/10/24 16:45 Calcium 9.3 mg/dL (8.5-10.5) 03/10/24 16:45 Total Bilirubin 0.3 mg/dL (0.15-1.2) 03/10/24 16:45 AST 17 U/L (0-32) 03/10/24 16:45 ALT 24 U/L (0-33) 03/10/24 16:45 Alkaline Phosphatase 79 U/L (35-105) 03/10/24 16:45 Troponin T Baseline 9 ng/L (0-10) 03/10/24 16:45 Troponin T 120 Minute 6.91 ng/L (0-10) 03/10/24 19:19 Delta Troponin T -2.09 ABS# (0-10) L 03/10/24 19:19 Total Protein 6.6 g/dL (6.6-8.7) 03/10/24 16:45 Albumin 4.3 g/dL (3.5-5.2) 03/10/24 16:45 Globulin 2.3 g/dL (1.3-4.6) 03/10/24 16:45 Discharge Plan Discharge Patient Disposition: Home Clinical Impression: Non-cardiac chest pain Condition: Stable Prescriptions: No Action aspirin 81 mg tablet,delayed release (DR/EC) 81 mg PO DAILY Qty: 90 3RF amlodipine 5 mg tablet 5 mg PO DAILY Qty: 90 3RF ondansetron 4 mg tablet,disintegrating 4 mg PO Q6H PRN (Reason: nausea and vomiting) Qty: 30 5RF scopolamine base 1 mg over 3 days patch 3 day See Rx Instructions .ROUTE .COMPLEX Qty: 4 0RF Dose Instruction: APPLY 1 PATCH TOPICALLY TO THE SKIN EVERY 3 DAYS NEEDED FOR NAUSEA OR VOMITING Rx Instructions: APPLY 1 PATCH TOPICALLY TO THE SKIN EVERY 3 DAYS NEEDED FOR NAUSEA OR VOMITING (DME) pen needle, diabetic [TechLITE Pen Needle] 31 gauge x 3/16 needle See Rx Instructions .Route Qty: 100 0RF Rx Instructions: As directed - TEST UP TO 3 TIMES DAILY albuterol sulfate 90 mcg/actuation HFA aerosol inhaler See Rx Instructions .ROUTE .COMPLEX Qty: 8.5 0RF Dose Instruction: INHALE 2 PUFFS BY MOUTH FOUR TIMES DAILY NEEDED FOR SHORTNESS OF BREATH Rx Instructions: INHALE 2 PUFFS BY MOUTH FOUR TIMES DAILY NEEDED FOR SHORTNESS OF BREATH clonazepam 0.5 mg tablet 0.5 mg PO BID Qty: 60 5RF clopidogrel 75 mg tablet 75 mg PO DAILY Qty: 90 3RF Hold Instructions: Resume on 01/04/23. insulin glargine [Lantus Solostar U-100 Insulin] 100 unit/mL (3 mL) insulin pen 10 unit SUBCUT DAILY Qty: 15 1RF isosorbide mononitrate 60 mg tablet extended release 24 hr 60 mg PO BID Qty: 180 3RF metoprolol succinate 25 mg tablet extended release 24 hr 25 mg PO BID Qty: 180 3RF pantoprazole [Protonix] 40 mg tablet,delayed release (DR/EC) 40 mg PO DAILY 90 Days Qty: 90 3RF prazosin 2 mg capsule 2 mg PO .at bedtime Qty: 30 5RF conjugated estrogens 0.625 mg/gram cream 0.625 mg vaginal DAILY Qty: 30 5RF Rx Instructions: Use 25 days, then off for 5 days before repeating cycle. gabapentin 600 mg tablet See Rx Instructions .ROUTE .COMPLEX Qty: 90 0RF Dose Instruction: TAKE 1 TABLET BY MOUTH THREE TIMES DAILY Rx Instructions: TAKE 1 TABLET BY MOUTH THREE TIMES DAILY epinephrine [EpiPen 2-Redd] 0.3 mg/0.3 mL auto-injector 0.3 mg IM Q4H PRN (Reason: anaphylaxis) Qty: 2 1RF atorvastatin 40 mg tablet See Rx Instructions .ROUTE .COMPLEX Qty: 90 0RF Dose Instruction: TAKE 1 TABLET BY MOUTH AT BEDTIME Rx Instructions: TAKE 1 TABLET BY MOUTH AT BEDTIME Pancreaze 2,600-8,800- 15,200 unit capsule,delayed release(DR/EC) 2 cap PO TID Qty: 180 2RF Rx Instructions: Take 2 capsules before each meal. nitroglycerin [Nitrostat] 0.4 mg Tablet, Sublingual 0.4 mg SUBLINGUAL Q5M PRN (Reason: Chest Pain) Rx Instructions: do not exceed 3 doses per episode Discharge Orders: Discharge ED (Routine); Ordered 03/10/24 Ordered By: Rekha Gonzalez Referrals: Frank Smith DO [Primary Care Provider] - Discharge Diet: Usual diet Discharge Activity: Increase activity as tolerated Patient Instructions: Noncardiac Chest Pain (ED) Activity Restrictions/Additional Instructions: Thank you for choosing [facility] for your healthcare needs today. Please realize this is an emergency room and that we are providing you with a medical screening exam and this may not be complete and all inclusive of all the testing and or work up that you may need to determine your ailment or severity of your illness. You have been screened and evaluated and felt safe for discharge. Health conditions do change or evolve sometimes and as such it is important that you follow up with your Primary Doctor to be re checked, 3-5 days is a general good time frame for follow up. 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 Documented by User: Rekha Gonzalez MD 03/10/24 19:52 HPI - Chest Pain 2 General: Chief Complaint: Chest Pain Stated Complaint: chest pain Time Seen by Provider: 03/10/24 15:34 Related Data Home Medications Medication Instructions Recorded Confirmed nitroglycerin 0.4 mg sublingual 0.4 mg sublingual Q5M PRN Chest 09/06/22 02/11/24 tablet (Nitrostat) Pain Previous Rx's Medication Instructions Recorded ondansetron 4 mg disintegrating 4 mg PO Q6H PRN nausea and 01/17/23 tablet vomiting #30 tabs aspirin 81 mg tablet,delayed 81 mg PO DAILY #90 tabs 02/25/23 release scopolamine base 1 mg over 3 days See Rx Instructions .Route 07/29/23 transdermal patch .COMPLEX #4 patches pen needle, diabetic 31 gauge x #100 ea 08/15/2308/09 (TechLITE Pen Needle) albuterol sulfate 90 mcg/actuation See Rx Instructions .Route 08/19/23 aerosol inhaler .COMPLEX #8.5 grams clonazepam 0.5 mg tablet 0.5 mg PO BID #60 tabs 08/21/23 clopidogrel 75 mg tablet 75 mg PO DAILY #90 tabs 08/21/23 conjugated estrogens 0.625 mg/gram 0.625 mg vaginal DAILY #30 grams 08/21/23 vaginal cream insulin glargine 100 unit/mL (3 10 unit (0.1 mL) SUBCUT DAILY #15 08/21/23 mL) subcutaneous pen (Lantus mL Solostar U-100 Insulin) isosorbide mononitrate 60 mg 60 mg PO BID #180 tabs 08/21/23 tablet,extended release 24 hr metoprolol succinate 25 mg 25 mg PO BID #180 tabs 08/21/23 tablet,extended release 24 hr pantoprazole 40 mg tablet,delayed 40 mg PO DAILY 90 days #90 tabs 08/21/23 release (Protonix) prazosin 2 mg capsule 2 mg PO .at bedtime #30 caps 08/21/23 gabapentin 600 mg tablet See Rx Instructions .Route 09/02/23 .COMPLEX #90 tabs epinephrine 0.3 mg/0.3 mL 0.3 mg (0.3 mL) IM Q4H PRN 10/30/23 injection, auto-injector (EpiPen anaphylaxis #2 ea 2-Redd) atorvastatin 40 mg tablet See Rx Instructions .Route 11/01/23 .COMPLEX #90 tabs lipase 2,600-protease 2 cap PO TID #180 caps 11/22/23 8,800-amylase 15,200 unit capsule, delayed rel (Pancreaze) amlodipine 5 mg tablet 5 mg PO DAILY #90 tabs 02/11/24 Allergies Allergy/AdvReac Type Severity Reaction Status Date / Time ciprofloxacin [From Cipro] Allergy Severe Unresponsiv Verified 07/22/23 14:29 e codeine Allergy Severe ALGY-Anaphy Verified 07/22/23 14:29 laxis lidocaine Allergy Severe ALGY-Swell Verified 07/22/23 14:29 Lip/Tongue/Throat morphine Allergy Severe ALGY-Anaphy Verified 07/22/23 14:29 laxis Penicillins Allergy Severe ALGY-Swell Verified 07/22/23 14:29 Lip/Tongue/Throat procaine [From Novocain] Allergy Severe ALGY-Swell Verified 07/22/23 14:29 Lip/Tongue/Throat prochlorperazine Allergy Severe ALGY-Swell Verified 07/22/23 14:29 [From Compazine] Lip/Tongue/Throat adhesive tape Allergy Unknown Unknown Verified 07/22/23 14:29 Sulfa (Sulfonamide Allergy Unknown Unknown Verified 07/22/23 14:29 Antibiotics) methocarbamol Allergy ALGY-Redness Verified 10/21/23 10:07 of Skin PFSH ED 2 PFSH: Medical History UTI (urinary tract infection) Claudication Atherosclerosis of coronary artery Type 2 diabetes mellitus without complication, with no history of insulin use Shortness of breath Cough Generalized body aches Fatigue Essential hypertension Neutrophilic leukocytosis Pancreatitis Myocardial infarction acute 09/2019 SBO (small bowel obstruction) HTN (hypertension) with goal to be determined Depression Surgical History History of 3 sections S/P DONNA-BSO History of incisional hernia repair Status post colonoscopy S/P cardiac cath History of appendectomy H/O exploratory laparotomy Multiple bowel resections S/P cholecystectomy Family History Mother Cancer, Onset Age: 60 Double mastectomy Sister Cancer, Onset Age: 53 double mastectomy Sister Cancer, Onset Age: 52 partial mastectomy Social History Smoking and tobacco/nicotine status: current every day tobacco/nicotine user (1/2 pack a day) cigarettes [ Other cigarette details: On and off ] Alcohol intake: current Alcohol intake frequency: holidays/special occasions only Substance/Drug Use: never Course 2 Vital Signs: Vital signs: Vital Signs Temperature 97.7 F 03/10/24 15:22 Pulse Rate 80 03/10/24 20:10 Respiratory Rate 16 03/10/24 20:00 Blood Pressure 154/116 03/10/24 20:10 Pulse Oximetry 95 03/10/24 20:10 Oxygen Delivery Hi thod Room Air 03/10/24 17:30 MDM - Chest Pain Medical Decision Making Patient care was transitioned to or at shift change awaiting final troponins Troponin has remained negative. EKGs are nonischemic. Assessment and plan: Noncardiac chest pain - Discharged home - Discussed plan with patient. Answered any questions. - Evaluation and treatment of this problem were appropriate in the emergency setting. Lab Data 03/10/24 16:45 03/10/24 16:45 Radiology Impressions Chest X-Ray 03/10/24 15:25 IMPRESSION: No acute findings. Laboratory Results WBC 6.48 10^3/uL (3.29-11.43) 03/10/24 16:45 RBC 4.60 10^6/uL (3.85-5.65) 03/10/24 16:45 Hgb 14.40 g/dL (11.27-16.99) 03/10/24 16:45 Hct 41.0 % (36-47) 03/10/24 16:45 MCV 89.1 fl (85-98) 03/10/24 16:45 MCH 31.3 pg (27-33) 03/10/24 16:45 MCHC 35.1 g/dL (30-55) 03/10/24 16:45 RDW 12.9 % (12.1-15.1) 03/10/24 16:45 Plt Count 358 10^3/cmm (157-399) 03/10/24 16:45 MPV 8.5 fL (7.4-10.4) 03/10/24 16:45 Neut % (Auto) 54.1 % 03/10/24 16:45 Lymph % (Auto) 38.3 % 03/10/24 16:45 Beckham % (Auto) 6.0 % 03/10/24 16:45 Eos % (Auto) 1.1 % 03/10/24 16:45 Baso % (Auto) 0.2 % 03/10/24 16:45 Neut # (Auto) 3.51 10^3/uL (1.8-7.7) 03/10/24 16:45 Lymph # (Auto) 2.5 10^3/uL (0.8-4.8) 03/10/24 16:45 Beckham # (Auto) 0.4 10^3/uL (0.2-0.9) 03/10/24 16:45 Eos # (Auto) 0.1 10^3/uL (0.0-0.8) 03/10/24 16:45 Baso # (Auto) 0.0 10^3/uL (0.0-0.1) 03/10/24 16:45 Nucleated RBC % (auto) 0 % 03/10/24 16:45 Nucleated RBCs # 0.0 /100WBC 03/10/24 16:45 PT 13.10 SECONDS (12.1-14.9) 03/10/24 16:45 INR 0.96 (0.8-1.2) 03/10/24 16:45 Sodium 143 mmol/L (136-145) 03/10/24 16:45 Potassium 4.3 mmol/L (3.5-5.1) 03/10/24 16:45 Chloride 108 mmol/L (98-107) H 03/10/24 16:45 Carbon Dioxide 25 mmol/L (22-29) 03/10/24 16:45 Anion Gap 14.3 (5-19) 03/10/24 16:45 BUN 8 mg/dL (8-23) 03/10/24 16:45 Creatinine 0.7 mg/dL (0.5-0.9) 03/10/24 16:45 GFR Calculation 84.2 mL/min (90-130) L 03/10/24 16:45 Glucose 94 mg/dL (65-115) 03/10/24 16:45 Calculated Osmolality 294 mOsm/kg (285-295) 03/10/24 16:45 Calcium 9.3 mg/dL (8.5-10.5) 03/10/24 16:45 Total Bilirubin 0.3 mg/dL (0.15-1.2) 03/10/24 16:45 AST 17 U/L (0-32) 03/10/24 16:45 ALT 24 U/L (0-33) 03/10/24 16:45 Alkaline Phosphatase 79 U/L (35-105) 03/10/24 16:45 Troponin T Baseline 9 ng/L (0-10) 03/10/24 16:45 Troponin T 120 Minute 6.91 ng/L (0-10) 03/10/24 19:19 Delta Troponin T -2.09 ABS# (0-10) L 03/10/24 19:19 Total Protein 6.6 g/dL (6.6-8.7) 03/10/24 16:45 Albumin 4.3 g/dL (3.5-5.2) 03/10/24 16:45 Globulin 2.3 g/dL (1.3-4.6) 03/10/24 16:45 All radiology interpretation(s) finalized by discharge Discharge Plan Discharge Patient Disposition: Home Clinical Impression: Non-cardiac chest pain Condition: Stable Prescriptions: No Action aspirin 81 mg tablet,delayed release (DR/EC) 81 mg PO DAILY Qty: 90 3RF amlodipine 5 mg tablet 5 mg PO DAILY Qty: 90 3RF ondansetron 4 mg tablet,disintegrating 4 mg PO Q6H PRN (Reason: nausea and vomiting) Qty: 30 5RF scopolamine base 1 mg over 3 days patch 3 day See Rx Instructions .ROUTE .COMPLEX Qty: 4 0RF Dose Instruction: APPLY 1 PATCH TOPICALLY TO THE SKIN EVERY 3 DAYS NEEDED FOR NAUSEA OR VOMITING Rx Instructions: APPLY 1 PATCH TOPICALLY TO THE SKIN EVERY 3 DAYS NEEDED FOR NAUSEA OR VOMITING (DME) pen needle, diabetic [TechLITE Pen Needle] 31 gauge x 3/16 needle See Rx Instructions .Route Qty: 100 0RF Rx Instructions: As directed - TEST UP TO 3 TIMES DAILY albuterol sulfate 90 mcg/actuation HFA aerosol inhaler See Rx Instructions .ROUTE .COMPLEX Qty: 8.5 0RF Dose Instruction: INHALE 2 PUFFS BY MOUTH FOUR TIMES DAILY NEEDED FOR SHORTNESS OF BREATH Rx Instructions: INHALE 2 PUFFS BY MOUTH FOUR TIMES DAILY NEEDED FOR SHORTNESS OF BREATH clonazepam 0.5 mg tablet 0.5 mg PO BID Qty: 60 5RF clopidogrel 75 mg tablet 75 mg PO DAILY Qty: 90 3RF Hold Instructions: Resume on 01/04/23. insulin glargine [Lantus Solostar U-100 Insulin] 100 unit/mL (3 mL) insulin pen 10 unit SUBCUT DAILY Qty: 15 1RF isosorbide mononitrate 60 mg tablet extended release 24 hr 60 mg PO BID Qty: 180 3RF metoprolol succinate 25 mg tablet extended release 24 hr 25 mg PO BID Qty: 180 3RF pantoprazole [Protonix] 40 mg tablet,delayed release (DR/EC) 40 mg PO DAILY 90 Days Qty: 90 3RF prazosin 2 mg capsule 2 mg PO .at bedtime Qty: 30 5RF conjugated estrogens 0.625 mg/gram cream 0.625 mg vaginal DAILY Qty: 30 5RF Rx Instructions: Use 25 days, then off for 5 days before repeating cycle. gabapentin 600 mg tablet See Rx Instructions .ROUTE .COMPLEX Qty: 90 0RF Dose Instruction: TAKE 1 TABLET BY MOUTH THREE TIMES DAILY Rx Instructions: TAKE 1 TABLET BY MOUTH THREE TIMES DAILY epinephrine [EpiPen 2-Redd] 0.3 mg/0.3 mL auto-injector 0.3 mg IM Q4H PRN (Reason: anaphylaxis) Qty: 2 1RF atorvastatin 40 mg tablet See Rx Instructions .ROUTE .COMPLEX Qty: 90 0RF Dose Instruction: TAKE 1 TABLET BY MOUTH AT BEDTIME Rx Instructions: TAKE 1 TABLET BY MOUTH AT BEDTIME Pancreaze 2,600-8,800- 15,200 unit capsule,delayed release(DR/EC) 2 cap PO TID Qty: 180 2RF Rx Instructions: Take 2 capsules before each meal. nitroglycerin [Nitrostat] 0.4 mg Tablet, Sublingual 0.4 mg SUBLINGUAL Q5M PRN (Reason: Chest Pain) Rx Instructions: do not exceed 3 doses per episode Discharge Orders: Discharge ED (Routine); Ordered 03/10/24 Ordered By: Rekha Gonzalez Referrals: Frank Smith DO [Primary Care Provider] - Discharge Diet: Usual diet Discharge Activity: Increase activity as tolerated Patient Instructions: Noncardiac Chest Pain (ED) Activity Restrictions/Additional Instructions: Thank you for choosing [facility] for your healthcare needs today. Please realize this is an emergency room and that we are providing you with a medical screening exam and this may not be complete and all inclusive of all the testing and or work up that you may need to determine your ailment or severity of your illness. You have been screened and evaluated and felt safe for discharge. Health conditions do change or evolve sometimes and as such it is important that you follow up with your Primary Doctor to be re checked, 3-5 days is a general good time frame for follow up. 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
[2024-03-10 17:01] LABS: Basophils % 0.2 %; Eosinophils # 0.1 10^3/uL (0.0-0.8); Eosinophils % 1.1 %; Lymphocytes # 2.5 10^3/uL (0.8-4.8); Lymphocytes % 38.3 %; Mean Corpuscular HGB Conc 35.1 g/dL (30-55); Mean Corpuscular Hemoglobin 31.3 pg (27-33); Mean Corpuscular Volume 89.1 fl (85-98); Mean Platelet Volume 8.5 fL (7.4-10.4); Monocytes # 0.4 10^3/uL (0.2-0.9); Neutrophils # 3.51 10^3/uL (1.8-7.7); Neutrophils % 54.1 %; Nucleated Red Blood Cells % 0 %; Platelet Count 358 10^3/cmm (157-399); Red Cell Distribution Width 12.9 % (12.1-15.1); White Blood Count 6.48 10^3/uL (3.29-11.43)
[2024-03-10 17:05] LABS: INR 0.96 (0.8-1.2)
[2024-03-10 17:11] LABS: Troponin(5th) Baseline 9 ng/L (0-10)
[2024-03-10 17:23] LABS: Alanine Aminotransferase 24 U/L (0-33); Albumin Level 4.3 g/dL (3.5-5.2); Alkaline Phosphatase 79 U/L (35-105); Anion Gap 14.3 (5-19); Aspartate Amino Transferase 17 U/L (0-32); Blood Urea Nitrogen 8 mg/dL (8-23); Calcium 9.3 mg/dL (8.5-10.5); Carbon Dioxide 25 mmol/L (22-29); Chloride 108 mmol/L (98-107); Creatinine Clr Calc Pharmacy 60.8055; Globulin 2.3 g/dL (1.3-4.6); Glomerular Filtration Rate 84.2 mL/min (90-130); Glucose 94 mg/dL (65-115); Osmolality Calculated 294 mOsm/kg (285-295); Potassium 4.3 mmol/L (3.5-5.1); Sodium 143 mmol/L (136-145); Total Bilirubin 0.3 mg/dL (0.15-1.2); Total Protein 6.6 g/dL (6.6-8.7)
--- NOTE | 2024-03-10 17:25 | ECG_ITS ---
[facility] Test Date: 2024-03-10 Pat Name: Yessi Schulte Department: Room: Gender: Female Magnetic Locater: : 1960 Requested By: Evangelista Moses Order Number: [id number] Gen MD: Hernan Coffman M.D. Measurements Intervals [place] Rate: 69 P: 54 MO: 190 QRS: 52 QRSD: 82 T: 46 QT: 410 QTc: 441 Interpretive Statements SINUS RHYTHM Compared to ECG 03/10/2024 15:21:35 No significant changes Electronically Signed On 03-12-2024 01:13:35 CDT by Hernan Coffman M.D. [email or web address]
[2024-03-10 19:47] LABS: Troponin 5 2HR 6.91 ng/L (0-10)
[2024-03-10 19:57] LABS: Troponin 5 2HR Delta -2.09 ABS# (0-10)
== END 2024-03-10 20:11 | disposition home or self-care (01) ==
PROVIDERS: Emergency Medicine; Emergency Provider Emergency Medicine; PCP Family Medicine
DX: R07.89 Other chest pain (principal); Z79.82 Long term (current) use of aspirin; Z79.02 Long term (current) use of antithrombotics/antiplatelets; Z79.4 Long term (current) use of insulin; E11.9 Type 2 diabetes mellitus without complications; I10 Essential (primary) hypertension; I25.2 Old myocardial infarction; F17.210 Nicotine dependence, cigarettes, uncomplicated
CPT/HCPCS: 71045; 80053; 84484; 85025; 85610; 93005; 99285

== ENCOUNTER 2024-04-09 03:59 | Emergency (ER) | payer BC, SELFPAY ==
[2024-04-09] VITALS (12 sets, daily range): BP systolic 93–144; BP diastolic 57–93; PULSE 64–129; RESP 14–22; TEMP 36.4; O2SAT 92–96; BMI 25.4
--- NOTE | 2024-04-09 04:10 | ED.C_ITS ---
Documented by User: Rekha Gonzalez MD 04/09/24 05:17 HPI - Psych 2 General: Chief Complaint: Psychiatric Symptoms Stated Complaint: OD,SI Time Seen by Provider: 04/09/24 04:00 History of Present Illness: 63-year-old female who presents the [facility] room with police and EMS with concern for SI and overdose. She is extremely agitated and yelling. She claims to have taken an unknown quantity of clonazepam and prazosin about 4 hours ago. She is extremely agitated and is not somnolent which is not consistent with this history. She is yelling about family that and she wants to join them. Apparently she cut her wrist superficially when they were trying to take her to the ambulance. Related Data Home Medications Medication Instructions Recorded Confirmed albuterol sulfate 90 mcg/actuation 2 puff inhalation QID PRN 04/09/24 04/09/24 aerosol inhaler Shortness Of Breath atorvastatin 40 mg tablet 40 mg PO BEDTIME 04/09/24 04/09/24 gabapentin 600 mg tablet 600 mg PO TID 04/09/24 04/09/24 Previous Rx's Medication Instructions Recorded aspirin 81 mg tablet,delayed 81 mg PO DAILY #90 tabs 02/25/23 release pen needle, diabetic 31 gauge x #100 ea 08/15/2308/09 (TechLITE Pen Needle) epinephrine 0.3 mg/0.3 mL 0.3 mg (0.3 mL) IM Q4H PRN 10/30/23 injection, auto-injector (EpiPen anaphylaxis #2 ea 2-Redd) amlodipine 5 mg tablet 5 mg PO DAILY #90 tabs 02/11/24 clonazepam 0.5 mg tablet 0.5 mg PO BID #60 tabs 03/31/24 clopidogrel 75 mg tablet 75 mg PO DAILY #90 tabs 03/31/24 conjugated estrogens 0.625 mg/gram 0.625 mg vaginal DAILY #30 grams 03/31/24 vaginal cream insulin glargine 100 unit/mL (3 10 unit (0.1 mL) SUBCUT DAILY #15 03/31/24 mL) subcutaneous pen (Lantus mL Solostar U-100 Insulin) ipratropium 0.5 mg-albuterol 3 mg 3 ml inhalation Q4H PRN wheezing 03/31/24 (2.5 mg base)/3 mL nebulization #180 mL soln isosorbide mononitrate 60 mg 60 mg PO BID #180 tabs 03/31/24 tablet,extended release 24 hr metoprolol succinate 25 mg 25 mg PO BID #180 tabs 03/31/24 tablet,extended release 24 hr nitroglycerin 0.4 mg sublingual 0.4 mg sublingual Q5M PRN Chest 03/31/24 tablet (Nitrostat) Pain #20 tabs pantoprazole 40 mg tablet,delayed 40 mg PO DAILY 90 days #90 tabs 03/31/24 release (Protonix) prazosin 2 mg capsule 2 mg PO .at bedtime #90 caps 03/31/24 eoancs-[id number] 1 cap PO TID #90 caps 04/09/24 3,000-9,500-15,000 unit capsule, delayed rel (Creon) Allergies Allergy/AdvReac Type Severity Reaction Status Date / Time ciprofloxacin [From Cipro] Allergy Severe Unresponsiv Verified 03/31/24 09:32 e codeine Allergy Severe ALGY-Anaphy Verified 03/31/24 09:32 laxis lidocaine Allergy Severe ALGY-Swell Verified 03/31/24 09:32 Lip/Tongue/Throat morphine Allergy Severe ALGY-Anaphy Verified 03/31/24 09:32 laxis Penicillins Allergy Severe ALGY-Swell Verified 03/31/24 09:32 Lip/Tongue/Throat procaine [From Novocain] Allergy Severe ALGY-Swell Verified 03/31/24 09:32 Lip/Tongue/Throat prochlorperazine Allergy Severe ALGY-Swell Verified 03/31/24 09:32 [From Compazine] Lip/Tongue/Throat adhesive tape Allergy Unknown Unknown Verified 03/31/24 09:32 Sulfa (Sulfonamide Allergy Unknown Unknown Verified 03/31/24 09:32 Antibiotics) methocarbamol Allergy ALGY-Redness Verified 03/31/24 09:32 of Skin Review of Systems 2 General: Reports: ROS unobtainable due to mental status PFSH ED 2 PFSH: Medical History UTI (urinary tract infection) Claudication Atherosclerosis of coronary artery Type 2 diabetes mellitus without complication, with no history of insulin use Shortness of breath Cough Generalized body aches Fatigue Essential hypertension Neutrophilic leukocytosis Pancreatitis Myocardial infarction acute 09/2019 SBO (small bowel obstruction) HTN (hypertension) with goal to be determined Depression Surgical History History of 3 sections S/P DONNA-BSO History of incisional hernia repair Status post colonoscopy S/P cardiac cath History of appendectomy H/O exploratory laparotomy Multiple bowel resections S/P cholecystectomy Family History Mother Cancer, Onset Age: 60 Double mastectomy Sister Cancer, Onset Age: 53 double mastectomy Sister Cancer, Onset Age: 52 partial mastectomy Social History Smoking and tobacco/nicotine status: current every day tobacco/nicotine user cigarettes [ Other cigarette details: On and off ] Alcohol intake: current Alcohol intake frequency: holidays/special occasions only Substance/Drug Use: never Female Reproductive History: Spontaneous abortions: No Physical Exam 2 Narrative: EXAM NARRATIVE: General: Alert. no acute distress Skin: Warm, dry Head: Normocephalic, atraumatic. Neck: Supple, trachea midline. Eye: Extraocular movements are intact. Ears, nose, mouth and throat: Oral mucosa moist. Cardiovascular: Regular rate and rhythm, Normal peripheral perfusion. Respiratory: Lungs are clear to auscultation, respirations are non-labored, breath sounds are equal, Symmetrical chest wall expansion. Gastrointestinal: Soft, Nontender, Non distended, Normal bowel sounds. Musculoskeletal: Normal ROM, no deformity. Neurological: No focal neurological deficit observed. Psychiatric: Patient is agitated, suicidal, yelling, fighting, screaming that she wants to Course 2 Vital Signs: Vital signs: Vital Signs Temperature 97.5 F L 04/09/24 04:34 Pulse Rate 64 04/09/24 11:09 Respiratory Rate 14 04/09/24 06:15 Blood Pressure 113/93 04/09/24 11:09 Pulse Oximetry 94 04/09/24 11:09 Oxygen Delivery Me thod Room Air 04/09/24 11:09 MDM - Psych Medical Decision Making Differential diagnosis: Patient with reported depression and suicidal ideation. concerns for infection, alcohol intoxication, cardiac issues or other medical problems prior to psychiatric admission. Workup: labwork, ekg ordered to evaluate the pathologies and to clear the patient medically prior to psychiatric admission Assessment and plan: Suicidal ideation Possible benzodiazepine overdose Patient care transition to Dr. Moses at shift change Lab Data 04/09/24 04:14 04/09/24 04:14 Laboratory Results WBC 10.21 10^3/uL (3.29-11.43) 04/09/24 04:14 RBC 4.12 10^6/uL (3.85-5.65) 04/09/24 04:14 Hgb 13.00 g/dL (11.27-16.99) 04/09/24 04:14 Hct 38.2 % (36-47) 04/09/24 04:14 MCV 92.7 fl (85-98) 04/09/24 04:14 MCH 31.6 pg (27-33) 04/09/24 04:14 MCHC 34.0 g/dL (30-55) 04/09/24 04:14 RDW 12.7 % (12.1-15.1) 04/09/24 04:14 Plt Count 390 10^3/cmm (157-399) 04/09/24 04:14 MPV 8.4 fL (7.4-10.4) 04/09/24 04:14 Neut % (Auto) 43.7 % 04/09/24 04:14 Lymph % (Auto) 49.1 % 04/09/24 04:14 [place] % (Auto) 6.4 % 04/09/24 04:14 Eos % (Auto) 0.2 % 04/09/24 04:14 Baso % (Auto) 0.2 % 04/09/24 04:14 Neut # (Auto) 4.47 10^3/uL (1.8-7.7) 04/09/24 04:14 Lymph # (Auto) 5.0 10^3/uL (0.8-4.8) H 04/09/24 04:14 [place] # (Auto) 0.7 10^3/uL (0.2-0.9) 04/09/24 04:14 Eos # (Auto) 0.0 10^3/uL (0.0-0.8) 04/09/24 04:14 Baso # (Auto) 0.0 10^3/uL (0.0-0.1) 04/09/24 04:14 Nucleated RBC % (auto) 0 % 04/09/24 04:14 Nucleated RBCs # 0.0 /100WBC 04/09/24 04:14 Sodium 141 mmol/L (136-145) 04/09/24 04:14 Potassium 3.3 mmol/L (3.5-5.1) L 04/09/24 04:14 Chloride 106 mmol/L (98-107) 04/09/24 04:14 Carbon Dioxide 17 mmol/L (22-29) L 04/09/24 04:14 Anion Gap 21.3 (5-19) H 04/09/24 04:14 BUN 12 mg/dL (8-23) 04/09/24 04:14 Creatinine 0.7 mg/dL (0.5-0.9) 04/09/24 04:14 GFR Calculation 84.2 mL/min (90-130) L 04/09/24 04:14 Glucose 192 mg/dL (65-115) H 04/09/24 04:14 Calculated Osmolality 297 mOsm/kg (285-295) H 04/09/24 04:14 Calcium 8.6 mg/dL (8.5-10.5) 04/09/24 04:14 Total Bilirubin 0.4 mg/dL (0.15-1.2) 04/09/24 04:14 AST 13 U/L (0-32) 04/09/24 04:14 ALT 20 U/L (0-33) 04/09/24 04:14 Alkaline Phosphatase 68 U/L (35-105) 04/09/24 04:14 Total Protein 6.6 g/dL (6.6-8.7) 04/09/24 04:14 Albumin 4.1 g/dL (3.5-5.2) 04/09/24 04:14 Globulin 2.5 g/dL (1.3-4.6) 04/09/24 04:14 TSH 1.52 uIU/mL (0.27-4.20) 04/09/24 04:14 Urine Color Dark yellow (Yellow) A 04/09/24 07:42 Urine Appearance Cloudy (CLEAR) A 04/09/24 07:42 Urine pH 5.5 (5-7) 04/09/24 07:42 Ur Specific [place] 1.023 (1.005-1.030) 04/09/24 07:42 Urine Protein Trace (Negative) A 04/09/24 07:42 Urine Glucose (UA) Negative (Normal) 04/09/24 07:42 Urine Ketones Negative (Negative) 04/09/24 07:42 Urine Blood Negative (Negative) 04/09/24 07:42 Urine Nitrate Positive (Negative) A 04/09/24 07:42 Urine Bilirubin Negative (Negative) 04/09/24 07:42 Urine Urobilinogen 1.0 mg/dL (Negative) 04/09/24 07:42 Ur Leukocyte Esterase 1+ (Negative) A 04/09/24 07:42 Urine RBC 21-50 /hpf (0-2) H 04/09/24 07:42 Urine WBC 21-50 /hpf (0-5) H 04/09/24 07:42 Ur Squamous Epith Cells 11-20 /hpf (0-5) 04/09/24 07:42 Amorphous Sediment Not Reportable 04/09/24 07:42 Urine Bacteria 4+ /hpf (NONE) H 04/09/24 07:42 Hyaline Casts 4.52 /lpf 04/09/24 07:42 Urine Yeast 1+ /hpf H 04/09/24 07:42 Salicylates < 0.3 mg/dL (3-10) L 04/09/24 04:14 Urine Opiates Screen Negative ng/mL (Negative) 04/09/24 07:42 Acetaminophen < 5.0 ug/mL (10-30) L 04/09/24 04:14 Ur Barbiturates Screen Negative ng/mL (Negative) 04/09/24 07:42 Ur Phencyclidine Scrn Negative ng/mL (Negative) 04/09/24 07:42 Ur Amphetamines Screen Negative ng/mL (Negative) 04/09/24 07:42 U Benzodiazepines Scrn Positive ng/mL (Negative) H 04/09/24 07:42 Urine Cocaine Screen Negative ng/mL (Negative) 04/09/24 07:42 U Marijuana (THC) Screen Positive ng/mL (Negative) H 04/09/24 07:42 Ethyl Alcohol < 10 mg/dL (0-10) 04/09/24 04:14 Coronavirus (PCR) Negative (Negative) 04/09/24 06:00 Influenza A (PCR) Negative (Negative) 04/09/24 06:00 Influenza Type B (PCR) Negative (Negative) 04/09/24 06:00 RSV (PCR) Negative (Negative) 04/09/24 06:00 Discharge Plan Discharge Patient Disposition: Admitted As Inpatient Clinical Impression: Suicidal ideation, Overdose, Agitation Condition: Stable Discharge Diet: Usual diet Coding Level of Care Code ED Bacteriology Teacher for Chg Fwd Documented by User: Evangelista Moses MD 04/09/24 11:38 HPI - Psych 2 General: Chief Complaint: Psychiatric Symptoms Stated Complaint: OD,SI Time Seen by Provider: 04/09/24 04:00 Related Data Home Medications Medication Instructions Recorded Confirmed albuterol sulfate 90 mcg/actuation 2 puff inhalation QID PRN 04/09/24 04/09/24 aerosol inhaler Shortness Of Breath atorvastatin 40 mg tablet 40 mg PO BEDTIME 04/09/24 04/09/24 gabapentin 600 mg tablet 600 mg PO TID 04/09/24 04/09/24 Previous Rx's Medication Instructions Recorded aspirin 81 mg tablet,delayed 81 mg PO DAILY #90 tabs 02/25/23 release pen needle, diabetic 31 gauge x #100 ea 08/15/2308/09 (TechLITE Pen Needle) epinephrine 0.3 mg/0.3 mL 0.3 mg (0.3 mL) IM Q4H PRN 10/30/23 injection, auto-injector (EpiPen anaphylaxis #2 ea 2-Redd) amlodipine 5 mg tablet 5 mg PO DAILY #90 tabs 02/11/24 clonazepam 0.5 mg tablet 0.5 mg PO BID #60 tabs 03/31/24 clopidogrel 75 mg tablet 75 mg PO DAILY #90 tabs 03/31/24 conjugated estrogens 0.625 mg/gram 0.625 mg vaginal DAILY #30 grams 03/31/24 vaginal cream insulin glargine 100 unit/mL (3 10 unit (0.1 mL) SUBCUT DAILY #15 03/31/24 mL) subcutaneous pen (Lantus mL Solostar U-100 Insulin) ipratropium 0.5 mg-albuterol 3 mg 3 ml inhalation Q4H PRN wheezing 03/31/24 (2.5 mg base)/3 mL nebulization #180 mL soln isosorbide mononitrate 60 mg 60 mg PO BID #180 tabs 03/31/24 tablet,extended release 24 hr metoprolol succinate 25 mg 25 mg PO BID #180 tabs 03/31/24 tablet,extended release 24 hr nitroglycerin 0.4 mg sublingual 0.4 mg sublingual Q5M PRN Chest 03/31/24 tablet (Nitrostat) Pain #20 tabs pantoprazole 40 mg tablet,delayed 40 mg PO DAILY 90 days #90 tabs 03/31/24 release (Protonix) prazosin 2 mg capsule 2 mg PO .at bedtime #90 caps 03/31/24 qeseiz-ehkpxwic-qrfxyzv 1 cap PO TID #90 caps 04/09/24 3,000-9,500-15,000 unit capsule, delayed rel (Creon) Allergies Allergy/AdvReac Type Severity Reaction Status Date / Time ciprofloxacin [From Cipro] Allergy Severe Unresponsiv Verified 03/31/24 09:32 e codeine Allergy Severe ALGY-Anaphy Verified 03/31/24 09:32 laxis lidocaine Allergy Severe ALGY-Swell Verified 03/31/24 09:32 Lip/Tongue/Throat morphine Allergy Severe ALGY-Anaphy Verified 03/31/24 09:32 laxis Penicillins Allergy Severe ALGY-Swell Verified 03/31/24 09:32 Lip/Tongue/Throat procaine [From Novocain] Allergy Severe ALGY-Swell Verified 03/31/24 09:32 Lip/Tongue/Throat prochlorperazine Allergy Severe ALGY-Swell Verified 03/31/24 09:32 [From Compazine] Lip/Tongue/Throat adhesive tape Allergy Unknown Unknown Verified 03/31/24 09:32 Sulfa (Sulfonamide Allergy Unknown Unknown Verified 03/31/24 09:32 Antibiotics) methocarbamol Allergy ALGY-Redness Verified 03/31/24 09:32 of Skin PFSH ED 2 PFSH: Medical History UTI (urinary tract infection) Claudication Atherosclerosis of coronary artery Type 2 diabetes mellitus without complication, with no history of insulin use Shortness of breath Cough Generalized body aches Fatigue Essential hypertension Neutrophilic leukocytosis Pancreatitis Myocardial infarction acute 09/2019 SBO (small bowel obstruction) HTN (hypertension) with goal to be determined Depression Surgical History History of 3 sections S/P DONNA-BSO History of incisional hernia repair Status post colonoscopy S/P cardiac cath History of appendectomy H/O exploratory laparotomy Multiple bowel resections S/P cholecystectomy Family History Mother Cancer, Onset Age: 60 Double mastectomy Sister Cancer, Onset Age: 53 double mastectomy Sister Cancer, Onset Age: 52 partial mastectomy Social History Smoking and tobacco/nicotine status: current every day tobacco/nicotine user cigarettes [ Other cigarette details: On and off ] Alcohol intake: current Alcohol intake frequency: holidays/special occasions only Substance/Drug Use: never Course 2 Vital Signs: Vital signs: Vital Signs Temperature 97.5 F L 04/09/24 04:34 Pulse Rate 64 04/09/24 11:09 Respiratory Rate 14 04/09/24 06:15 Blood Pressure 113/93 04/09/24 11:09 Pulse Oximetry 94 04/09/24 11:09 Oxygen Delivery Me thod Room Air 04/09/24 11:09 MDM - Psych Medical Decision Making Differential diagnosis: Patient with reported depression and suicidal ideation. concerns for infection, alcohol intoxication, cardiac issues or other medical problems prior to psychiatric admission. Workup: labwork, ekg ordered to evaluate the pathologies and to clear the patient medically prior to psychiatric admission Assessment and plan: Suicidal ideation Possible benzodiazepine overdose Patient care transition to Dr. Moses at shift change Patient's been well-appearing here no signs of overdose she is medically cleared patient is excepted at [facility] will transfer there due to bed availability Medical Records I reviewed the patient's medical records. Lab Data I reviewed the patient's lab results. 04/09/24 04:14 04/09/24 04:14 Laboratory Results WBC 10.21 10^3/uL (3.29-11.43) 04/09/24 04:14 RBC 4.12 10^6/uL (3.85-5.65) 04/09/24 04:14 Hgb 13.00 g/dL (11.27-16.99) 04/09/24 04:14 Hct 38.2 % (36-47) 04/09/24 04:14 MCV 92.7 fl (85-98) 04/09/24 04:14 MCH 31.6 pg (27-33) 04/09/24 04:14 MCHC 34.0 g/dL (30-55) 04/09/24 04:14 RDW 12.7 % (12.1-15.1) 04/09/24 04:14 Plt Count 390 10^3/cmm (157-399) 04/09/24 04:14 MPV 8.4 fL (7.4-10.4) 04/09/24 04:14 Neut % (Auto) 43.7 % 04/09/24 04:14 Lymph % (Auto) 49.1 % 04/09/24 04:14 [place] % (Auto) 6.4 % 04/09/24 04:14 Eos % (Auto) 0.2 % 04/09/24 04:14 Baso % (Auto) 0.2 % 04/09/24 04:14 Neut # (Auto) 4.47 10^3/uL (1.8-7.7) 04/09/24 04:14 Lymph # (Auto) 5.0 10^3/uL (0.8-4.8) H 04/09/24 04:14 [place] # (Auto) 0.7 10^3/uL (0.2-0.9) 04/09/24 04:14 Eos # (Auto) 0.0 10^3/uL (0.0-0.8) 04/09/24 04:14 Baso # (Auto) 0.0 10^3/uL (0.0-0.1) 04/09/24 04:14 Nucleated RBC % (auto) 0 % 04/09/24 04:14 Nucleated RBCs # 0.0 /100WBC 04/09/24 04:14 Sodium 141 mmol/L (136-145) 04/09/24 04:14 Potassium 3.3 mmol/L (3.5-5.1) L 04/09/24 04:14 Chloride 106 mmol/L (98-107) 04/09/24 04:14 Carbon Dioxide 17 mmol/L (22-29) L 04/09/24 04:14 Anion Gap 21.3 (5-19) H 04/09/24 04:14 BUN 12 mg/dL (8-23) 04/09/24 04:14 Creatinine 0.7 mg/dL (0.5-0.9) 04/09/24 04:14 GFR Calculation 84.2 mL/min (90-130) L 04/09/24 04:14 Glucose 192 mg/dL (65-115) H 04/09/24 04:14 Calculated Osmolality 297 mOsm/kg (285-295) H 04/09/24 04:14 Calcium 8.6 mg/dL (8.5-10.5) 04/09/24 04:14 Total Bilirubin 0.4 mg/dL (0.15-1.2) 04/09/24 04:14 AST 13 U/L (0-32) 04/09/24 04:14 ALT 20 U/L (0-33) 04/09/24 04:14 Alkaline Phosphatase 68 U/L (35-105) 04/09/24 04:14 Total Protein 6.6 g/dL (6.6-8.7) 04/09/24 04:14 Albumin 4.1 g/dL (3.5-5.2) 04/09/24 04:14 Globulin 2.5 g/dL (1.3-4.6) 04/09/24 04:14 TSH 1.52 uIU/mL (0.27-4.20) 04/09/24 04:14 Urine Color Dark yellow (Yellow) A 04/09/24 07:42 Urine Appearance Cloudy (CLEAR) A 04/09/24 07:42 Urine pH 5.5 (5-7) 04/09/24 07:42 Ur Specific [place] 1.023 (1.005-1.030) 04/09/24 07:42 Urine Protein Trace (Negative) A 04/09/24 07:42 Urine Glucose (UA) Negative (Normal) 04/09/24 07:42 Urine Ketones Negative (Negative) 04/09/24 07:42 Urine Blood Negative (Negative) 04/09/24 07:42 Urine Nitrate Positive (Negative) A 04/09/24 07:42 Urine Bilirubin Negative (Negative) 04/09/24 07:42 Urine Urobilinogen 1.0 mg/dL (Negative) 04/09/24 07:42 Ur Leukocyte Esterase 1+ (Negative) A 04/09/24 07:42 Urine RBC 21-50 /hpf (0-2) H 04/09/24 07:42 Urine WBC 21-50 /hpf (0-5) H 04/09/24 07:42 Ur Squamous Epith Cells 11-20 /hpf (0-5) 04/09/24 07:42 Amorphous Sediment Not Reportable 04/09/24 07:42 Urine Bacteria 4+ /hpf (NONE) H 04/09/24 07:42 Hyaline Casts 4.52 /lpf 04/09/24 07:42 Urine Yeast 1+ /hpf H 04/09/24 07:42 Salicylates < 0.3 mg/dL (3-10) L 04/09/24 04:14 Urine Opiates Screen Negative ng/mL (Negative) 04/09/24 07:42 Acetaminophen < 5.0 ug/mL (10-30) L 04/09/24 04:14 Ur Barbiturates Screen Negative ng/mL (Negative) 04/09/24 07:42 Ur Phencyclidine Scrn Negative ng/mL (Negative) 04/09/24 07:42 Ur Amphetamines Screen Negative ng/mL (Negative) 04/09/24 07:42 U Benzodiazepines Scrn Positive ng/mL (Negative) H 04/09/24 07:42 Urine Cocaine Screen Negative ng/mL (Negative) 04/09/24 07:42 U Marijuana (THC) Screen Positive ng/mL (Negative) H 04/09/24 07:42 Ethyl Alcohol < 10 mg/dL (0-10) 04/09/24 04:14 Coronavirus (PCR) Negative (Negative) 04/09/24 06:00 Influenza A (PCR) Negative (Negative) 04/09/24 06:00 Influenza Type B (PCR) Negative (Negative) 04/09/24 06:00 RSV (PCR) Negative (Negative) 04/09/24 06:00 All radiology interpretation(s) finalized by discharge EKG Data EKG 1: I personally reviewed and interpreted this EKG as follows: EKG interpretation date: 04/09/24 EKG interpretation time: 06:08 Interpretation: nsr hr [address] elevation qrs 89 qtc 434 Discharge Plan Discharge Patient Disposition: Admitted As Inpatient Clinical Impression: Suicidal ideation, Overdose, Agitation Condition: Stable Discharge Diet: Usual diet Coding Level of Care Code ED Bacteriology Teacher for Sonya Patrick
[2024-04-09] MEDS: water for injection-sterile 10 ML 1.2 ML (04:36)
[2024-04-09] MEDS: ziprasidone 20 mg/mL SDV IM (04:36)
[2024-04-09 04:38] LABS: Basophils % 0.2 %; Eosinophils % 0.2 %; Hematocrit 38.2 % (36-47); Lymphocytes % 49.1 %; Mean Corpuscular Hemoglobin 31.6 pg (27-33); Mean Corpuscular Volume 92.7 fl (85-98); Mean Platelet Volume 8.4 fL (7.4-10.4); Monocytes # 0.7 10^3/uL (0.2-0.9); Monocytes % 6.4 %; Neutrophils # 4.47 10^3/uL (1.8-7.7); Neutrophils % 43.7 %; Nucleated Red Blood Cells % 0 %; Platelet Count 390 10^3/cmm (157-399); Red Blood Count 4.12 10^6/uL (3.85-5.65); Red Cell Distribution Width 12.7 % (12.1-15.1); White Blood Count 10.21 10^3/uL (3.29-11.43)
[2024-04-09] MEDS: LORazepam 2 mg/mL INJ 1 mL IM (04:42)
[2024-04-09 05:07] LABS: Alanine Aminotransferase 20 U/L (0-33); Albumin Level 4.1 g/dL (3.5-5.2); Alkaline Phosphatase 68 U/L (35-105); Anion Gap 21.3 (5-19); Aspartate Amino Transferase 13 U/L (0-32); Blood Urea Nitrogen 12 mg/dL (8-23); Calcium 8.6 mg/dL (8.5-10.5); Carbon Dioxide 17 mmol/L (22-29); Chloride 106 mmol/L (98-107); Globulin 2.5 g/dL (1.3-4.6); Glomerular Filtration Rate 84.2 mL/min (90-130); Glucose 192 mg/dL (65-115); Osmolality Calculated 297 mOsm/kg (285-295); Potassium 3.3 mmol/L (3.5-5.1); Sodium 141 mmol/L (136-145); Thyroid Stimulating Hormone 1.52 uIU/mL (0.27-4.20); Total Bilirubin 0.4 mg/dL (0.15-1.2); Total Protein 6.6 g/dL (6.6-8.7)
--- NOTE | 2024-04-09 05:09 | PC.NURSE ---
96 Hour Involuntary Hold Patient Rights have been discussed with the patient and a copy of the same has been given to her. Dog Sitter Maria A Perrin was present at bedside at the time of presentation of Rights.
[2024-04-09 05:13] LABS: Acetaminophen < 5.0 ug/mL (10-30); Alcohol Level < 10 mg/dL (0-10); Salicylate < 0.3 mg/dL (3-10)
--- NOTE | 2024-04-09 06:08 | ECG_ITS ---
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 Measurements Intervals [place] Rate: 80 P: 217 VT: 113 QRS: 76 QRSD: 89 T: 53 QT: 398 QTc: 462 Interpretive Statements SINUS RHYTHM WITH SHORT VT INTERVAL NONSPECIFIC T-WAVE ABNORMALITY Compared to ECG 03/10/2024 17:55:40 Short VT interval now present T-wave abnormality now present Electronically Signed On 04-09-2024 21:37:17 NAIL TECHNICIAN TEACHER by Hernan Coffman M.D. [email or web address]
[2024-04-09 06:46] LABS: Covid PCR NEGATIVE (Negative); Influenza A NEGATIVE (Negative); Influenza B NEGATIVE (Negative); Respiratory Syncytial Virus Ce NEGATIVE (Negative)
[2024-04-09 07:57] LABS: Bilirubin Urine Negative (Negative); Blood Urine Negative (Negative); Glucose Urine UA Negative (Normal); Ketones Urine Negative (Negative); Leukocyte Esterase Urine 1+ (Negative); Nitrate Urine Positive (Negative); Protein Urine Trace (Negative); Specific Gravity, Urine 1.023 (1.005-1.030); Urine Appearance Cloudy (CLEAR); Urine Color Dark Yellow (Yellow); pH Urine 5.5 (5-7)
[2024-04-09 08:02] LABS: Bacteria Urine 4+ /hpf; Hyaline Casts Urine 4.52 /lpf; RBC Urine 21-50 /hpf (0-2); WBC Urine 21-50 /hpf (0-5)
[2024-04-09 08:04] LABS: Amphetamines Screen Urine Negative (Negative); Barbiturates Screen Urine Negative (Negative); Benzodiazepines Screen Urine Positive (Negative); Cocaine Screen Urine Negative (Negative); Opiate Screen Urine Negative (Negative); PCP Screen Urine Negative (Negative); THC Screen Urine Positive (Negative)
[2024-04-09 08:22] LABS: Add Urine Culture? Yes
--- NOTE | 2024-04-09 09:59 | PC.PHAR ---
Pharmacy states pt just finished a z-chey and medrol dose chey from 03/31/24. Pharmacy is processing Creon 3,000 from this morning. 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
[2024-04-09] MEDS: cefTRIAXone 1,000 MG in water for injection-sterile 2.1 ML 2.1 MG IM (10:11)
--- NOTE | 2024-04-09 11:06 | PC.NURSE ---
REPORT CALLED TO ROBERT Doherty RN AT [facility]. ACCEPTING NURSE VERBALIZED UNDERSTANDING AND DENIED ANY VERBALIZED QUESTIONS.
== END 2024-04-09 11:51 | disposition admitted as inpatient to this hospital (09) ==
PROVIDERS: Emergency Medicine; Emergency Provider Emergency Medicine; PCP Family Medicine
DX: R45.851 Suicidal ideations (principal); T50.902A Poisoning by unspecified drugs, medicaments and biological substances, intentional self-harm, initial encounter; X58.XXXA Exposure to other specified factors, initial encounter; R45.1 Restlessness and agitation; Z11.52 Encounter for screening for COVID-19; F17.210 Nicotine dependence, cigarettes, uncomplicated; E11.9 Type 2 diabetes mellitus without complications; I10 Essential (primary) hypertension; I25.2 Old myocardial infarction
CPT/HCPCS: 0241U; 80053; 80306; 80307; 81001; 84443; 85025; 87077; 87086; 87186; 93005; 96372; 99285; J0696; J2060; J3486

== ENCOUNTER 2024-04-18 18:58 | Emergency (ER) | payer BC, SELFPAY ==
[2024-04-18 19:00] VITALS: BP 107/71; PULSE 85; RESP 24; TEMP 36.5; O2SAT 88; BMI 25.4
--- NOTE | 2024-04-18 19:04 | XRR_ITS ---
PROCEDURE INFORMATION: Exam: XR Chest Exam date and time: 04/18/2024 7:38 PM Age: 63 years old Clinical indication: Other: Weakness TECHNIQUE: Imaging protocol: Radiologic exam of the chest. Views: 1 view. COMPARISON: CR XR chest 1V portable [id number] 03/10/2024 3:31 PM FINDINGS: Tubes, catheters and devices: Overlying monitor leads and oxygen tubing noted. Lungs: Unremarkable. No infiltrate or consolidation. No pulmonary vascular congestion. Pleural spaces: Unremarkable. No pleural effusion. No pneumothorax. Heart/Mediastinum: Unremarkable. No cardiomegaly. Bones/joints: Postsurgical fusion hardware mid to lower cervical spine. Prior vertebroplasty T12. Other findings: No significant change with prior exam. Postsurgical clips midline lower chest/upper abdomen, likely GE junction region. XR/XR chest 1V portable [id number] IMPRESSION: No acute cardiopulmonary abnormality.
--- NOTE | 2024-04-18 19:04 | CTR_ITS ---
PROCEDURE INFORMATION: Exam: CT Head Without Contrast Exam date and time: 04/18/2024 7:49 PM Age: 63 years old Clinical indication: Altered mental status/memory loss; Patient HX: EMS arrival for overdose with AMS. Patient lethargic and vomiting. ; Additional info: Encephalopathy, altered mental status TECHNIQUE: Imaging protocol: Computed tomography of the head without contrast. Radiation optimization: All CT scans at this facility use at least one of these dose optimization techniques: automated exposure control; mA and/or kV adjustment per patient size (includes targeted exams where dose is matched to clinical indication); or iterative reconstruction. COMPARISON: CT head wo con* [id number] 05/03/2017 6:50 PM RADIATION DOSE METRICS: Total DLP (mGy-cm): 920.78 FINDINGS: Brain: Mild atrophic change. Tfso-cb-ixooidcu periventricular and deep white matter low attenuation is seen bilaterally likely related to chronic small-vessel disease change. Findings are similar to prior exam of 2017 though with interval increase in these changes. No intracranial hemorrhage or hematoma is seen. No mass effect or shift of midline structures. No findings of territorial or large vessel ischemic infarct. Cerebral ventricles: No ventriculomegaly. Paranasal sinuses: Visualized sinuses are unremarkable. No fluid levels. Mastoid air cells: Visualized mastoid air cells are well aerated. Bones: Bone windows of the skull show no acute abnormality. Soft tissues: Unremarkable. CT/CT head wo con* [id number] IMPRESSION: 1. Mild atrophic change and [id number] small-vessel disease change, similar to 2017 exam though with interval increase. 2. No acute intracranial abnormality.
--- NOTE | 2024-04-18 19:04 | ECG_ITS ---
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: : 1960 Requested By: Rekha Figueroa Order Number: [id number] Gen MD: JESSE FONTANA Measurements Intervals [place] Rate: 80 P: 257 CO: 113 QRS: 67 QRSD: 86 T: 11 QT: 379 QTc: 438 Interpretive Statements JUNCTIONAL RHYTHM NONSPECIFIC T-WAVE ABNORMALITY ABNORMAL RHYTHM ECG Compared to ECG 04/09/2024 06:08:47 Junctional rhythm now present Sinus rhythm no longer present Short CO interval no longer present T-wave abnormality still present Electronically Signed On 04-20-2024 19:26:18 IT SECURITY MANAGER by JESSE FONTANA [email or web address]
[2024-04-18 19:13] LABS: Basophils # 0.1 10^3/uL (0.0-0.1); Basophils % 0.3 %; Eosinophils # 0.2 10^3/uL (0.0-0.8); Hematocrit 41.4 % (36-47); Lymphocytes # 4.8 10^3/uL (0.8-4.8); Lymphocytes % 28.4 %; Mean Corpuscular HGB Conc 33.3 g/dL (30-55); Mean Corpuscular Hemoglobin 30.5 pg (27-33); Mean Corpuscular Volume 91.4 fl (85-98); Mean Platelet Volume 8.9 fL (7.4-10.4); Monocytes # 1.4 10^3/uL (0.2-0.9); Monocytes % 8.1 %; Neutrophils # 10.49 10^3/uL (1.8-7.7); Neutrophils % 61.8 %; Nucleated Red Blood Cells % 0 %; Platelet Count 360 10^3/cmm (157-399); Red Blood Count 4.53 10^6/uL (3.85-5.65); Red Cell Distribution Width 13.2 % (12.1-15.1); White Blood Count 16.97 10^3/uL (3.29-11.43)
[2024-04-18 19:34] LABS: Lactic Sepsis W/Reflex 3.1 mmol/L (0.5-2.2)
--- NOTE | 2024-04-18 19:36 | PC.NURSE ---
96 Hour Involuntary Hold Patient Rights have been read to the patient and a copy of the same has been given to her. [employer] System Operator Yordy Barry was present at bedside at the time of presentation of Rights.
[2024-04-18 19:40] LABS: Alanine Aminotransferase 18 U/L (0-33); Albumin Level 4.1 g/dL (3.5-5.2); Alcohol Level 300 mg/dL (0-10); Alkaline Phosphatase 60 U/L (35-105); Anion Gap 22.5 (5-19); Aspartate Amino Transferase 16 U/L (0-32); Blood Urea Nitrogen 6 mg/dL (8-23); Calcium 8.9 mg/dL (8.5-10.5); Carbon Dioxide 18 mmol/L (22-29); Chloride 104 mmol/L (98-107); Glomerular Filtration Rate 72.2 mL/min (90-130); Glucose 114 mg/dL (65-115); Osmolality Calculated 290 mOsm/kg (285-295); Potassium 3.5 mmol/L (3.5-5.1); Sodium 141 mmol/L (136-145); Thyroid Stimulating Hormone 2.24 uIU/mL (0.27-4.20); Total Bilirubin 0.4 mg/dL (0.15-1.2); Total Protein 7.1 g/dL (6.6-8.7)
--- NOTE | 2024-04-18 19:40 | W.ED.OVERDOS ---
Documented by User: Rekha Gonzalez MD 04/18/24 20:09 HPI - Overdose General: Chief Complaint: Psychiatric Symptoms Stated Complaint: AMS Time Seen by Provider: 04/18/24 19:00 History of Present Illness: 63-year-old female With a history of type 2 diabetes, hypertension and psychiatric issues who presents to the emergency room today by ambulance on a 96-hour hold. Apparently they had contacted her and said they would be there in 30 minutes to get her and by the time they arrived she was minimally responsive. She began vomiting. There was some alcohol in the home. No obvious bottles of medications that she might of taken. When she arrived here unable to obtain much history as she is actively vomiting. Related Data Home Medications Medication Instructions Recorded Confirmed albuterol sulfate 90 mcg/actuation 2 puff inhalation QID PRN 04/09/24 04/19/24 aerosol inhaler Shortness Of Breath atorvastatin 40 mg tablet 40 mg PO BEDTIME 04/09/24 04/19/24 cefdinir 300 mg capsule 300 mg PO Q12H 04/19/24 04/19/24 docusate sodium 100 mg capsule 100 mg PO DAILY 04/19/24 04/19/24 gabapentin 300 mg capsule 600 mg PO TID 04/19/24 04/19/24 prazosin 2 mg capsule 2 mg PO BEDTIME 04/19/24 04/19/24 Previous Rx's Medication Instructions Recorded aspirin 81 mg tablet,delayed 81 mg PO DAILY #90 tabs 02/25/23 release pen needle, diabetic 31 gauge x #100 ea 08/15/2308/09 (TechLITE Pen Needle) epinephrine 0.3 mg/0.3 mL 0.3 mg (0.3 mL) IM Q4H PRN 10/30/23 injection, auto-injector (EpiPen anaphylaxis #2 ea 2-Redd) amlodipine 5 mg tablet 5 mg PO DAILY #90 tabs 02/11/24 clonazepam 0.5 mg tablet 0.5 mg PO BID #60 tabs 03/31/24 clopidogrel 75 mg tablet 75 mg PO DAILY #90 tabs 03/31/24 insulin glargine 100 unit/mL (3 10 unit (0.1 mL) SUBCUT DAILY #15 03/31/24 mL) subcutaneous pen (Lantus mL Solostar U-100 Insulin) ipratropium 0.5 mg-albuterol 3 mg 3 ml inhalation Q4H PRN wheezing 03/31/24 (2.5 mg base)/3 mL nebulization #180 mL soln isosorbide mononitrate 60 mg 60 mg PO BID #180 tabs 03/31/24 tablet,extended release 24 hr metoprolol succinate 25 mg 25 mg PO BID #180 tabs 03/31/24 tablet,extended release 24 hr nitroglycerin 0.4 mg sublingual 0.4 mg sublingual Q5M PRN Chest 03/31/24 tablet (Nitrostat) Pain #20 tabs pantoprazole 40 mg tablet,delayed 40 mg PO DAILY 90 days #90 tabs 03/31/24 release (Protonix) iodgin-qfcjhupm-euxjoff 1 cap PO TID #90 caps 04/09/24 3,000-9,500-15,000 unit capsule, delayed rel (Creon) Allergies Allergy/AdvReac Type Severity Reaction Status Date / Time ciprofloxacin [From Cipro] Allergy Severe Unresponsiv Verified 03/31/24 09:32 e codeine Allergy Severe ALGY-Anaphy Verified 03/31/24 09:32 laxis lidocaine Allergy Severe ALGY-Swell Verified 03/31/24 09:32 Lip/Tongue/Throat morphine Allergy Severe ALGY-Anaphy Verified 03/31/24 09:32 laxis Penicillins Allergy Severe ALGY-Swell Verified 03/31/24 09:32 Lip/Tongue/Throat procaine [From Novocain] Allergy Severe ALGY-Swell Verified 03/31/24 09:32 Lip/Tongue/Throat prochlorperazine Allergy Severe ALGY-Swell Verified 03/31/24 09:32 [From Compazine] Lip/Tongue/Throat adhesive tape Allergy Unknown Unknown Verified 03/31/24 09:32 Sulfa (Sulfonamide Allergy Unknown Unknown Verified 03/31/24 09:32 Antibiotics) methocarbamol Allergy ALGY-Redness Verified 03/31/24 09:32 of Skin Review of Systems General: Reports: ROS unobtainable due to medical condition and ROS unobtainable due to mental status PFSH ED PFSH: Medical History UTI (urinary tract infection) Claudication Atherosclerosis of coronary artery Type 2 diabetes mellitus without complication, with no history of insulin use Shortness of breath Cough Generalized body aches Fatigue Essential hypertension Neutrophilic leukocytosis Pancreatitis Myocardial infarction acute 09/2019 SBO (small bowel obstruction) HTN (hypertension) with goal to be determined Depression Surgical History History of 3 sections S/P DONNA-BSO History of incisional hernia repair Status post colonoscopy S/P cardiac cath History of appendectomy H/O exploratory laparotomy Multiple bowel resections S/P cholecystectomy Family History Mother Cancer, Onset Age: 60 Double mastectomy Sister Cancer, Onset Age: 53 double mastectomy Sister Cancer, Onset Age: 52 partial mastectomy Social History Smoking and tobacco/nicotine status: current every day tobacco/nicotine user cigarettes [ Other cigarette details: On and off ] Alcohol intake: current Alcohol intake frequency: holidays/special occasions only Substance/Drug Use: never Female Reproductive History: Spontaneous abortions: No Physical Exam Narrative: EXAM NARRATIVE: General: Somnolent but arousable, actively vomiting Skin: Warm, dry Head: Normocephalic, atraumatic. Neck: Supple, trachea midline. Eye: Extraocular movements are intact. Ears, nose, mouth and throat: Dry oral mucosa. Cardiovascular: Regular rate and rhythm, Normal peripheral perfusion. Respiratory: Lungs are clear to auscultation, respirations are non-labored, breath sounds are equal, Symmetrical chest wall expansion. Gastrointestinal: Soft, Nontender, Non distended, Normal bowel sounds. Musculoskeletal: no deformity. Neurological: Somnolent but vomiting. No obvious focal neurological deficit observed. Psychiatric: unable to assess. Course Vital Signs: Vital signs: Vital Signs Temperature 97.7 F 04/18/24 19:00 Pulse Rate 80 04/19/24 07:18 Respiratory Rate 16 04/19/24 07:18 Blood Pressure 112/70 04/19/24 07:18 Pulse Oximetry 98 04/19/24 07:18 Oxygen Delivery Me thod Room Air 04/19/24 07:18 MDM - Overdose Medical Decision Making Differential diagnosis: Patient with reported depression and suicidal ideation. concerns for infection, alcohol intoxication, cardiac issues or other medical problems prior to psychiatric admission. Workup: labwork, ekg ordered to evaluate the pathologies and to clear the patient medically prior to psychiatric admission Lab Review: Laboratory results were reviewed and interpreted by myself the emergency room physician. Patient has some leukocytosis with a white count 17,000. No anemia. No renal failure. Liver enzymes are normal. Lactate acid is 3. Blood alcohol level is 300. Patient care transitioned to Dr. Moses at shift change Lab Data 04/19/24 01:30 04/18/24 18:43 Radiology Impressions Chest X-Ray 04/18/24 19:04 IMPRESSION: No acute cardiopulmonary abnormality. Head CT 04/18/24 19:04 IMPRESSION: 1. Mild atrophic change and [id number] small-vessel disease change, similar to 2017 exam though with interval increase. 2. No acute intracranial abnormality. KUB X-Ray 04/18/24 19:50 IMPRESSION: Nonspecific nonobstructive bowel gas pattern appearance. Laboratory Results WBC 12.91 10^3/uL (3.29-11.43) H 04/19/24 01:30 RBC 4.03 10^6/uL (3.85-5.65) 04/19/24 01:30 Hgb 12.30 g/dL (11.27-16.99) 04/19/24 01:30 Hct 38.2 % (36-47) 04/19/24 01:30 MCV 94.8 fl (85-98) 04/19/24 01:30 MCH 30.5 pg (27-33) 04/19/24 01:30 MCHC 32.2 g/dL (30-55) 04/19/24 01:30 RDW 13.1 % (12.1-15.1) 04/19/24 01:30 Plt Count 272 10^3/cmm (157-399) 04/19/24 01:30 MPV 8.5 fL (7.4-10.4) 04/19/24 01:30 Neut % (Auto) 79.4 % 04/19/24 01:30 Lymph % (Auto) 14.3 % 04/19/24 01:30 [place] % (Auto) 5.6 % 04/19/24 01:30 Eos % (Auto) 0.1 % 04/19/24 01:30 Baso % (Auto) 0.2 % 04/19/24 01:30 Neut # (Auto) 10.25 10^3/uL (1.8-7.7) H 04/19/24 01:30 Lymph # (Auto) 1.9 10^3/uL (0.8-4.8) 04/19/24 01:30 [place] # (Auto) 0.7 10^3/uL (0.2-0.9) 04/19/24 01:30 Eos # (Auto) 0.0 10^3/uL (0.0-0.8) 04/19/24 01:30 Baso # (Auto) 0.0 10^3/uL (0.0-0.1) 04/19/24 01:30 Nucleated RBC % (auto) 0 % 04/19/24 01:30 Nucleated RBCs # 0.0 /100WBC 04/19/24 01:30 Sodium 141 mmol/L (136-145) 04/18/24 18:43 Potassium 3.5 mmol/L (3.5-5.1) 04/18/24 18:43 Chloride 104 mmol/L (98-107) 04/18/24 18:43 Carbon Dioxide 18 mmol/L (22-29) L 04/18/24 18:43 Anion Gap 22.5 (5-19) H 04/18/24 18:43 BUN 6 mg/dL (8-23) L 04/18/24 18:43 Creatinine 0.8 mg/dL (0.5-0.9) 04/18/24 18:43 GFR Calculation 72.2 mL/min (90-130) L 04/18/24 18:43 Glucose 114 mg/dL (65-115) 04/18/24 18:43 Calculated Osmolality 290 mOsm/kg (285-295) 04/18/24 18:43 Lactic Acid 3.1 mmol/L (0.5-2.2) H 04/18/24 18:43 Lactic Acid (Sepsis) 2.6 mmol/L (0.5-2.2) H 04/18/24 21:35 Calcium 8.9 mg/dL (8.5-10.5) 04/18/24 18:43 Total Bilirubin 0.4 mg/dL (0.15-1.2) 04/18/24 18:43 AST 16 U/L (0-32) 04/18/24 18:43 ALT 18 U/L (0-33) 04/18/24 18:43 Alkaline Phosphatase 60 U/L (35-105) 04/18/24 18:43 Total Protein 7.1 g/dL (6.6-8.7) 04/18/24 18:43 Albumin 4.1 g/dL (3.5-5.2) 04/18/24 18:43 Globulin 3.0 g/dL (1.3-4.6) 04/18/24 18:43 TSH 2.24 uIU/mL (0.27-4.20) 04/18/24 18:43 Urine Color Yellow (Yellow) 04/18/24 22:34 Urine Appearance Clear (CLEAR) 04/18/24 22:34 Urine pH 5.5 (5-7) 04/18/24 22:34 Ur Specific [place] 1.007 (1.005-1.030) 04/18/24 22:34 Urine Protein Negative (Negative) 04/18/24 22:34 Urine Glucose (UA) Negative (Normal) 04/18/24 22:34 Urine Ketones Negative (Negative) 04/18/24 22:34 Urine Blood Negative (Negative) 04/18/24 22:34 Urine Nitrate Negative (Negative) 04/18/24 22:34 Urine Bilirubin Negative (Negative) 04/18/24 22:34 Urine Urobilinogen 0.2 mg/dL (Negative) 04/18/24 22:34 Ur Leukocyte Esterase 1+ (Negative) A 04/18/24 22:34 Urine RBC 11-20 /hpf (0-2) H 04/18/24 22:34 Urine WBC 6-10 /hpf (0-5) 04/18/24 22:34 Ur Squamous Epith Cells 6-10 /hpf (0-5) 04/18/24 22:34 Amorphous Sediment Not Reportable 04/18/24 22:34 Urine Bacteria None seen /hpf (NONE) 04/18/24 22:34 Hyaline Casts 2.46 /lpf 04/18/24 22:34 Salicylates < 0.3 mg/dL (3-10) L 04/18/24 18:43 Urine Opiates Screen Negative ng/mL (Negative) 04/18/24 22:34 Acetaminophen < 5.0 ug/mL (10-30) L 04/18/24 18:43 Ur Barbiturates Screen Negative ng/mL (Negative) 04/18/24 22:34 Ur Phencyclidine Scrn Negative ng/mL (Negative) 04/18/24 22:34 Ur Amphetamines Screen Negative ng/mL (Negative) 04/18/24 22:34 U Benzodiazepines Scrn Negative ng/mL (Negative) 04/18/24 22:34 Urine Cocaine Screen Negative ng/mL (Negative) 04/18/24 22:34 U Marijuana (THC) Screen Positive ng/mL (Negative) H 04/18/24 22:34 Ethyl Alcohol 116 mg/dL (0-10) H 04/19/24 01:30 Coronavirus (PCR) Negative (Negative) 04/19/24 04:59 Influenza A (PCR) Negative (Negative) 04/19/24 04:59 Influenza Type B (PCR) Negative (Negative) 04/19/24 04:59 RSV (PCR) Negative (Negative) 04/19/24 04:59 Discharge Plan Discharge Patient Disposition: [facility] Clinical Impression: Suicidal ideation, Alcohol intoxication, Alcohol abuse Condition: Stable Prescriptions: No Action aspirin 81 mg tablet,delayed release (DR/EC) 81 mg PO DAILY Qty: 90 3RF amlodipine 5 mg tablet 5 mg PO DAILY Qty: 90 3RF pantoprazole [Protonix] 40 mg tablet,delayed release (DR/EC) 40 mg PO DAILY 90 Days Qty: 90 3RF metoprolol succinate 25 mg tablet extended release 24 hr 25 mg PO BID Qty: 180 3RF isosorbide mononitrate 60 mg tablet extended release 24 hr 60 mg PO BID Qty: 180 3RF clopidogrel 75 mg tablet 75 mg PO DAILY Qty: 90 3RF Hold Instructions: Resume on 01/04/23. clonazepam 0.5 mg tablet 0.5 mg PO BID Qty: 60 5RF nitroglycerin [Nitrostat] 0.4 mg tablet, sublingual 0.4 mg SUBLINGUAL Q5M PRN (Reason: Chest Pain) Qty: 20 2RF Rx Instructions: do not exceed 3 doses per episode insulin glargine [Lantus Solostar U-100 Insulin] 100 unit/mL (3 mL) insulin pen 10 unit SUBCUT DAILY Qty: 15 3RF ipratropium-albuterol 0.5 mg-3 mg(2.5 mg base)/3 mL solution for nebulization 3 ml inhalation Q4H PRN (Reason: wheezing) Qty: 180 1RF (DME) pen needle, diabetic [TechLITE Pen Needle] 31 gauge x 3/16 needle See Rx Instructions .Route Qty: 100 0RF Rx Instructions: As directed - TEST UP TO 3 TIMES DAILY epinephrine [EpiPen 2-Redd] 0.3 mg/0.3 mL auto-injector 0.3 mg IM Q4H PRN (Reason: anaphylaxis) Qty: 2 1RF Creon 3,000-9,500- 15,000 unit capsule,delayed release(DR/EC) 1 cap PO TID Qty: 90 5RF atorvastatin 40 mg tablet 40 mg PO BEDTIME albuterol sulfate 90 mcg/actuation HFA aerosol inhaler 2 puff inhalation QID PRN (Reason: Shortness Of Breath) docusate sodium 100 mg capsule 100 mg PO DAILY gabapentin 300 mg capsule 600 mg PO TID cefdinir 300 mg capsule 300 mg PO Q12H prazosin 2 mg capsule 2 mg PO BEDTIME Referrals: Frank Smith DO [Primary Care Provider] - Coding Level of Care Code ED Inside Upholsterer for Chg Fwd Documented by User: Evangelista Moses MD 04/18/24 23:32 HPI - Overdose General: Chief Complaint: Psychiatric Symptoms Stated Complaint: AMS Time Seen by Provider: 04/18/24 19:00 Related Data Home Medications Medication Instructions Recorded Confirmed albuterol sulfate 90 mcg/actuation 2 puff inhalation QID PRN 04/09/24 04/19/24 aerosol inhaler Shortness Of Breath atorvastatin 40 mg tablet 40 mg PO BEDTIME 04/09/24 04/19/24 cefdinir 300 mg capsule 300 mg PO Q12H 04/19/24 04/19/24 docusate sodium 100 mg capsule 100 mg PO DAILY 04/19/24 04/19/24 gabapentin 300 mg capsule 600 mg PO TID 04/19/24 04/19/24 prazosin 2 mg capsule 2 mg PO BEDTIME 04/19/24 04/19/24 Previous Rx's Medication Instructions Recorded aspirin 81 mg tablet,delayed 81 mg PO DAILY #90 tabs 02/25/23 release pen needle, diabetic 31 gauge x #100 ea 08/15/23/16 (TechLITE Pen Needle) epinephrine 0.3 mg/0.3 mL 0.3 mg (0.3 mL) IM Q4H PRN 10/30/23 injection, auto-injector (EpiPen anaphylaxis #2 ea 2-Redd) amlodipine 5 mg tablet 5 mg PO DAILY #90 tabs 02/11/24 clonazepam 0.5 mg tablet 0.5 mg PO BID #60 tabs 03/31/24 clopidogrel 75 mg tablet 75 mg PO DAILY #90 tabs 03/31/24 insulin glargine 100 unit/mL (3 10 unit (0.1 mL) SUBCUT DAILY #15 03/31/24 mL) subcutaneous pen (Lantus mL Solostar U-100 Insulin) ipratropium 0.5 mg-albuterol 3 mg 3 ml inhalation Q4H PRN wheezing 03/31/24 (2.5 mg base)/3 mL nebulization #180 mL soln isosorbide mononitrate 60 mg 60 mg PO BID #180 tabs 03/31/24 tablet,extended release 24 hr metoprolol succinate 25 mg 25 mg PO BID #180 tabs 03/31/24 tablet,extended release 24 hr nitroglycerin 0.4 mg sublingual 0.4 mg sublingual Q5M PRN Chest 03/31/24 tablet (Nitrostat) Pain #20 tabs pantoprazole 40 mg tablet,delayed 40 mg PO DAILY 90 days #90 tabs 03/31/24 release (Protonix) puigqq-xfvmmxyk-tehvymv 1 cap PO TID #90 caps 04/09/24 3,000-9,500-15,000 unit capsule, delayed rel (Creon) Allergies Allergy/AdvReac Type Severity Reaction Status Date / Time ciprofloxacin [From Cipro] Allergy Severe Unresponsiv Verified 03/31/24 09:32 e codeine Allergy Severe ALGY-Anaphy Verified 03/31/24 09:32 laxis lidocaine Allergy Severe ALGY-Swell Verified 03/31/24 09:32 Lip/Tongue/Throat morphine Allergy Severe ALGY-Anaphy Verified 03/31/24 09:32 laxis Penicillins Allergy Severe ALGY-Swell Verified 03/31/24 09:32 Lip/Tongue/Throat procaine [From Novocain] Allergy Severe ALGY-Swell Verified 03/31/24 09:32 Lip/Tongue/Throat prochlorperazine Allergy Severe ALGY-Swell Verified 03/31/24 09:32 [From Compazine] Lip/Tongue/Throat adhesive tape Allergy Unknown Unknown Verified 03/31/24 09:32 Sulfa (Sulfonamide Allergy Unknown Unknown Verified 03/31/24 09:32 Antibiotics) methocarbamol Allergy ALGY-Redness Verified 03/31/24 09:32 of Skin PFSH ED PFSH: Medical History UTI (urinary tract infection) Claudication Atherosclerosis of coronary artery Type 2 diabetes mellitus without complication, with no history of insulin use Shortness of breath Cough Generalized body aches Fatigue Essential hypertension Neutrophilic leukocytosis Pancreatitis Myocardial infarction acute 09/2019 SBO (small bowel obstruction) HTN (hypertension) with goal to be determined Depression Surgical History History of 3 sections S/P DONNA-BSO History of incisional hernia repair Status post colonoscopy S/P cardiac cath History of appendectomy H/O exploratory laparotomy Multiple bowel resections S/P cholecystectomy Family History Mother Cancer, Onset Age: 60 Double mastectomy Sister Cancer, Onset Age: 53 double mastectomy Sister Cancer, Onset Age: 52 partial mastectomy Social History Smoking and tobacco/nicotine status: current every day tobacco/nicotine user cigarettes [ Other cigarette details: On and off ] Alcohol intake: current Alcohol intake frequency: holidays/special occasions only Substance/Drug Use: never Course Reevaluation(s): Reevaluation #1: Patient here is being verbally aggressive she kept trying to leave her room screaming at staff I tried to verbally de-escalate her she keeps screaming that she wants to go to [place] and wants to leave did have to give her Haldol and Ativan to calm her down Time: 23:31 Vital Signs: Vital signs: Vital Signs Temperature 97.7 F 04/18/24 19:00 Pulse Rate 80 04/19/24 07:18 Respiratory Rate 16 04/19/24 07:18 Blood Pressure 112/70 04/19/24 07:18 Pulse Oximetry 98 04/19/24 07:18 Oxygen Delivery Me thod Room Air 04/19/24 07:18 MDM - Overdose Lab Data 04/19/24 01:30 04/18/24 18:43 Radiology Impressions Chest X-Ray 04/18/24 19:04 IMPRESSION: No acute cardiopulmonary abnormality. Head CT 04/18/24 19:04 IMPRESSION: 1. Mild atrophic change and [id number]-[id number] small-vessel disease change, similar to 2017 exam though with interval increase. 2. No acute intracranial abnormality. KUB X-Ray 04/18/24 19:50 IMPRESSION: Nonspecific nonobstructive bowel gas pattern appearance. Laboratory Results WBC 12.91 10^3/uL (3.29-11.43) H 04/19/24 01:30 RBC 4.03 10^6/uL (3.85-5.65) 04/19/24 01:30 Hgb 12.30 g/dL (11.27-16.99) 04/19/24 01:30 Hct 38.2 % (36-47) 04/19/24 01:30 MCV 94.8 fl (85-98) 04/19/24 01:30 MCH 30.5 pg (27-33) 04/19/24 01:30 MCHC 32.2 g/dL (30-55) 04/19/24 01:30 RDW 13.1 % (12.1-15.1) 04/19/24 01:30 Plt Count 272 10^3/cmm (157-399) 04/19/24 01:30 MPV 8.5 fL (7.4-10.4) 04/19/24 01:30 Neut % (Auto) 79.4 % 04/19/24 01:30 Lymph % (Auto) 14.3 % 04/19/24 01:30 [place] % (Auto) 5.6 % 04/19/24 01:30 Eos % (Auto) 0.1 % 04/19/24 01:30 Baso % (Auto) 0.2 % 04/19/24 01:30 Neut # (Auto) 10.25 10^3/uL (1.8-7.7) H 04/19/24 01:30 Lymph # (Auto) 1.9 10^3/uL (0.8-4.8) 04/19/24 01:30 [place] # (Auto) 0.7 10^3/uL (0.2-0.9) 04/19/24 01:30 Eos # (Auto) 0.0 10^3/uL (0.0-0.8) 04/19/24 01:30 Baso # (Auto) 0.0 10^3/uL (0.0-0.1) 04/19/24 01:30 Nucleated RBC % (auto) 0 % 04/19/24 01:30 Nucleated RBCs # 0.0 /100WBC 04/19/24 01:30 Sodium 141 mmol/L (136-145) 04/18/24 18:43 Potassium 3.5 mmol/L (3.5-5.1) 04/18/24 18:43 Chloride 104 mmol/L (98-107) 04/18/24 18:43 Carbon Dioxide 18 mmol/L (22-29) L 04/18/24 18:43 Anion Gap 22.5 (5-19) H 04/18/24 18:43 BUN 6 mg/dL (8-23) L 04/18/24 18:43 Creatinine 0.8 mg/dL (0.5-0.9) 04/18/24 18:43 GFR Calculation 72.2 mL/min (90-130) L 04/18/24 18:43 Glucose 114 mg/dL (65-115) 04/18/24 18:43 Calculated Osmolality 290 mOsm/kg (285-295) 04/18/24 18:43 Lactic Acid 3.1 mmol/L (0.5-2.2) H 04/18/24 18:43 Lactic Acid (Sepsis) 2.6 mmol/L (0.5-2.2) H 04/18/24 21:35 Calcium 8.9 mg/dL (8.5-10.5) 04/18/24 18:43 Total Bilirubin 0.4 mg/dL (0.15-1.2) 04/18/24 18:43 AST 16 U/L (0-32) 04/18/24 18:43 ALT 18 U/L (0-33) 04/18/24 18:43 Alkaline Phosphatase 60 U/L (35-105) 04/18/24 18:43 Total Protein 7.1 g/dL (6.6-8.7) 04/18/24 18:43 Albumin 4.1 g/dL (3.5-5.2) 04/18/24 18:43 Globulin 3.0 g/dL (1.3-4.6) 04/18/24 18:43 TSH 2.24 uIU/mL (0.27-4.20) 04/18/24 18:43 Urine Color Yellow (Yellow) 04/18/24 22:34 Urine Appearance Clear (CLEAR) 04/18/24 22:34 Urine pH 5.5 (5-7) 04/18/24 22:34 Ur Specific [place] 1.007 (1.005-1.030) 04/18/24 22:34 Urine Protein Negative (Negative) 04/18/24 22:34 Urine Glucose (UA) Negative (Normal) 04/18/24 22:34 Urine Ketones Negative (Negative) 04/18/24 22:34 Urine Blood Negative (Negative) 04/18/24 22:34 Urine Nitrate Negative (Negative) 04/18/24 22:34 Urine Bilirubin Negative (Negative) 04/18/24 22:34 Urine Urobilinogen 0.2 mg/dL (Negative) 04/18/24 22:34 Ur Leukocyte Esterase 1+ (Negative) A 04/18/24 22:34 Urine RBC 11-20 /hpf (0-2) H 04/18/24 22:34 Urine WBC 6-10 /hpf (0-5) 04/18/24 22:34 Ur Squamous Epith Cells 6-10 /hpf (0-5) 04/18/24 22:34 Amorphous Sediment Not Reportable 04/18/24 22:34 Urine Bacteria None seen /hpf (NONE) 04/18/24 22:34 Hyaline Casts 2.46 /lpf 04/18/24 22:34 Salicylates < 0.3 mg/dL (3-10) L 04/18/24 18:43 Urine Opiates Screen Negative ng/mL (Negative) 04/18/24 22:34 Acetaminophen < 5.0 ug/mL (10-30) L 04/18/24 18:43 Ur Barbiturates Screen Negative ng/mL (Negative) 04/18/24 22:34 Ur Phencyclidine Scrn Negative ng/mL (Negative) 04/18/24 22:34 Ur Amphetamines Screen Negative ng/mL (Negative) 04/18/24 22:34 U Benzodiazepines Scrn Negative ng/mL (Negative) 04/18/24 22:34 Urine Cocaine Screen Negative ng/mL (Negative) 04/18/24 22:34 U Marijuana (THC) Screen Positive ng/mL (Negative) H 04/18/24 22:34 Ethyl Alcohol 116 mg/dL (0-10) H 04/19/24 01:30 Coronavirus (PCR) Negative (Negative) 04/19/24 04:59 Influenza A (PCR) Negative (Negative) 04/19/24 04:59 Influenza Type B (PCR) Negative (Negative) 04/19/24 04:59 RSV (PCR) Negative (Negative) 04/19/24 04:59 Discharge Plan Discharge Patient Disposition: [facility] Clinical Impression: Suicidal ideation, Alcohol intoxication, Alcohol abuse Condition: Stable Prescriptions: No Action aspirin 81 mg tablet,delayed release (DR/EC) 81 mg PO DAILY Qty: 90 3RF amlodipine 5 mg tablet 5 mg PO DAILY Qty: 90 3RF pantoprazole [Protonix] 40 mg tablet,delayed release (DR/EC) 40 mg PO DAILY 90 Days Qty: 90 3RF metoprolol succinate 25 mg tablet extended release 24 hr 25 mg PO BID Qty: 180 3RF isosorbide mononitrate 60 mg tablet extended release 24 hr 60 mg PO BID Qty: 180 3RF clopidogrel 75 mg tablet 75 mg PO DAILY Qty: 90 3RF Hold Instructions: Resume on 01/04/23. clonazepam 0.5 mg tablet 0.5 mg PO BID Qty: 60 5RF nitroglycerin [Nitrostat] 0.4 mg tablet, sublingual 0.4 mg SUBLINGUAL Q5M PRN (Reason: Chest Pain) Qty: 20 2RF Rx Instructions: do not exceed 3 doses per episode insulin glargine [Lantus Solostar U-100 Insulin] 100 unit/mL (3 mL) insulin pen 10 unit SUBCUT DAILY Qty: 15 3RF ipratropium-albuterol 0.5 mg-3 mg(2.5 mg base)/3 mL solution for nebulization 3 ml inhalation Q4H PRN (Reason: wheezing) Qty: 180 1RF (DME) pen needle, diabetic [TechLITE Pen Needle] 31 gauge x 3/16 needle See Rx Instructions .Route Qty: 100 0RF Rx Instructions: As directed - TEST UP TO 3 TIMES DAILY epinephrine [EpiPen 2-Redd] 0.3 mg/0.3 mL auto-injector 0.3 mg IM Q4H PRN (Reason: anaphylaxis) Qty: 2 1RF Creon 3,000-9,500- 15,000 unit capsule,delayed release(DR/EC) 1 cap PO TID Qty: 90 5RF atorvastatin 40 mg tablet 40 mg PO BEDTIME albuterol sulfate 90 mcg/actuation HFA aerosol inhaler 2 puff inhalation QID PRN (Reason: Shortness Of Breath) docusate sodium 100 mg capsule 100 mg PO DAILY gabapentin 300 mg capsule 600 mg PO TID cefdinir 300 mg capsule 300 mg PO Q12H prazosin 2 mg capsule 2 mg PO BEDTIME Referrals: Frank Smith DO [Primary Care Provider] - Coding Level of Care Code ED Inside Upholsterer for Chg Fwd Documented by User: Uriel Bae DO 04/19/24 12:51 HPI - Overdose General: Chief Complaint: Psychiatric Symptoms Stated Complaint: AMS Time Seen by Provider: 04/18/24 19:00 Related Data Home Medications Medication Instructions Recorded Confirmed albuterol sulfate 90 mcg/actuation 2 puff inhalation QID PRN 04/09/24 04/19/24 aerosol inhaler Shortness Of Breath atorvastatin 40 mg tablet 40 mg PO BEDTIME 04/09/24 04/19/24 cefdinir 300 mg capsule 300 mg PO Q12H 04/19/24 04/19/24 docusate sodium 100 mg capsule 100 mg PO DAILY 04/19/24 04/19/24 gabapentin 300 mg capsule 600 mg PO TID 04/19/24 04/19/24 prazosin 2 mg capsule 2 mg PO BEDTIME 04/19/24 04/19/24 Previous Rx's Medication Instructions Recorded aspirin 81 mg tablet,delayed 81 mg PO DAILY #90 tabs 02/25/23 release pen needle, diabetic 31 gauge x #100 ea 08/15/23/16 (TechLITE Pen Needle) epinephrine 0.3 mg/0.3 mL 0.3 mg (0.3 mL) IM Q4H PRN 10/30/23 injection, auto-injector (EpiPen anaphylaxis #2 ea 2-Redd) amlodipine 5 mg tablet 5 mg PO DAILY #90 tabs 02/11/24 clonazepam 0.5 mg tablet 0.5 mg PO BID #60 tabs 03/31/24 clopidogrel 75 mg tablet 75 mg PO DAILY #90 tabs 03/31/24 insulin glargine 100 unit/mL (3 10 unit (0.1 mL) SUBCUT DAILY #15 03/31/24 mL) subcutaneous pen (Lantus mL Solostar U-100 Insulin) ipratropium 0.5 mg-albuterol 3 mg 3 ml inhalation Q4H PRN wheezing 03/31/24 (2.5 mg base)/3 mL nebulization #180 mL soln isosorbide mononitrate 60 mg 60 mg PO BID #180 tabs 03/31/24 tablet,extended release 24 hr metoprolol succinate 25 mg 25 mg PO BID #180 tabs 03/31/24 tablet,extended release 24 hr nitroglycerin 0.4 mg sublingual 0.4 mg sublingual Q5M PRN Chest 03/31/24 tablet (Nitrostat) Pain #20 tabs pantoprazole 40 mg tablet,delayed 40 mg PO DAILY 90 days #90 tabs 03/31/24 release (Protonix) krqihy-fuplkvuj-soiwdyk 1 cap PO TID #90 caps 04/09/24 3,000-9,500-15,000 unit capsule, delayed rel (Creon) Allergies Allergy/AdvReac Type Severity Reaction Status Date / Time ciprofloxacin [From Cipro] Allergy Severe Unresponsiv Verified 03/31/24 09:32 e codeine Allergy Severe ALGY-Anaphy Verified 03/31/24 09:32 laxis lidocaine Allergy Severe ALGY-Swell Verified 03/31/24 09:32 Lip/Tongue/Throat morphine Allergy Severe ALGY-Anaphy Verified 03/31/24 09:32 laxis Penicillins Allergy Severe ALGY-Swell Verified 03/31/24 09:32 Lip/Tongue/Throat procaine [From Novocain] Allergy Severe ALGY-Swell Verified 03/31/24 09:32 Lip/Tongue/Throat prochlorperazine Allergy Severe ALGY-Swell Verified 03/31/24 09:32 [From Compazine] Lip/Tongue/Throat adhesive tape Allergy Unknown Unknown Verified 03/31/24 09:32 Sulfa (Sulfonamide Allergy Unknown Unknown Verified 03/31/24 09:32 Antibiotics) methocarbamol Allergy ALGY-Redness Verified 03/31/24 09:32 of Skin PFSH ED PFSH: Medical History UTI (urinary tract infection) Claudication Atherosclerosis of coronary artery Type 2 diabetes mellitus without complication, with no history of insulin use Shortness of breath Cough Generalized body aches Fatigue Essential hypertension Neutrophilic leukocytosis Pancreatitis Myocardial infarction acute 09/2019 SBO (small bowel obstruction) HTN (hypertension) with goal to be determined Depression Surgical History History of 3 sections S/P DONNA-BSO History of incisional hernia repair Status post colonoscopy S/P cardiac cath History of appendectomy H/O exploratory laparotomy Multiple bowel resections S/P cholecystectomy Family History Mother Cancer, Onset Age: 60 Double mastectomy Sister Cancer, Onset Age: 53 double mastectomy Sister Cancer, Onset Age: 52 partial mastectomy Social History Smoking and tobacco/nicotine status: current every day tobacco/nicotine user cigarettes [ Other cigarette details: On and off ] Alcohol intake: current Alcohol intake frequency: holidays/special occasions only Substance/Drug Use: never Course Vital Signs: Vital signs: Vital Signs Temperature 97.7 F 04/18/24 19:00 Pulse Rate 80 04/19/24 07:18 Respiratory Rate 16 04/19/24 07:18 Blood Pressure 112/70 04/19/24 07:18 Pulse Oximetry 98 04/19/24 07:18 Oxygen Delivery Me thod Room Air 04/19/24 07:18 MDM - Overdose Medical Decision Making Differential diagnosis: Patient with reported depression and suicidal ideation. concerns for infection, alcohol intoxication, cardiac issues or other medical problems prior to psychiatric admission. Workup: labwork, ekg ordered to evaluate the pathologies and to clear the patient medically prior to psychiatric admission Lab Review: Laboratory results were reviewed and interpreted by myself the emergency room physician. Patient has some leukocytosis with a white count 17,000. No anemia. No renal failure. Liver enzymes are normal. Lactate acid is 3. Blood alcohol level is 300. Patient care transitioned to Dr. Moses at shift change Care assumed at change of shift from Dr. Lao. Patient is resting comfortably doing well have talked to the on-call physician at [facility] in [facility]. They will accept patient on transfer transfer via [facility] patient in stable condition Lab Data 04/19/24 01:30 04/18/24 18:43 Radiology Impressions Chest X-Ray 04/18/24 19:04 IMPRESSION: No acute cardiopulmonary abnormality. Head CT 04/18/24 19:04 IMPRESSION: 1. Mild atrophic change and [id number]-[id number] small-vessel disease change, similar to 2017 exam though with interval increase. 2. No acute intracranial abnormality. KUB X-Ray 04/18/24 19:50 IMPRESSION: Nonspecific nonobstructive bowel gas pattern appearance. Laboratory Results WBC 12.91 10^3/uL (3.29-11.43) H 04/19/24 01:30 RBC 4.03 10^6/uL (3.85-5.65) 04/19/24 01:30 Hgb 12.30 g/dL (11.27-16.99) 04/19/24 01:30 Hct 38.2 % (36-47) 04/19/24 01:30 MCV 94.8 fl (85-98) 04/19/24 01:30 MCH 30.5 pg (27-33) 04/19/24 01:30 MCHC 32.2 g/dL (30-55) 04/19/24 01:30 RDW 13.1 % (12.1-15.1) 04/19/24 01:30 Plt Count 272 10^3/cmm (157-399) 04/19/24 01:30 MPV 8.5 fL (7.4-10.4) 04/19/24 01:30 Neut % (Auto) 79.4 % 04/19/24 01:30 Lymph % (Auto) 14.3 % 04/19/24 01:30 [place] % (Auto) 5.6 % 04/19/24 01:30 Eos % (Auto) 0.1 % 04/19/24 01:30 Baso % (Auto) 0.2 % 04/19/24 01:30 Neut # (Auto) 10.25 10^3/uL (1.8-7.7) H 04/19/24 01:30 Lymph # (Auto) 1.9 10^3/uL (0.8-4.8) 04/19/24 01:30 [place] # (Auto) 0.7 10^3/uL (0.2-0.9) 04/19/24 01:30 Eos # (Auto) 0.0 10^3/uL (0.0-0.8) 04/19/24 01:30 Baso # (Auto) 0.0 10^3/uL (0.0-0.1) 04/19/24 01:30 Nucleated RBC % (auto) 0 % 04/19/24 01:30 Nucleated RBCs # 0.0 /100WBC 04/19/24 01:30 Sodium 141 mmol/L (136-145) 04/18/24 18:43 Potassium 3.5 mmol/L (3.5-5.1) 04/18/24 18:43 Chloride 104 mmol/L (98-107) 04/18/24 18:43 Carbon Dioxide 18 mmol/L (22-29) L 04/18/24 18:43 Anion Gap 22.5 (5-19) H 04/18/24 18:43 BUN 6 mg/dL (8-23) L 04/18/24 18:43 Creatinine 0.8 mg/dL (0.5-0.9) 04/18/24 18:43 GFR Calculation 72.2 mL/min (90-130) L 04/18/24 18:43 Glucose 114 mg/dL (65-115) 04/18/24 18:43 Calculated Osmolality 290 mOsm/kg (285-295) 04/18/24 18:43 Lactic Acid 3.1 mmol/L (0.5-2.2) H 04/18/24 18:43 Lactic Acid (Sepsis) 2.6 mmol/L (0.5-2.2) H 04/18/24 21:35 Calcium 8.9 mg/dL (8.5-10.5) 04/18/24 18:43 Total Bilirubin 0.4 mg/dL (0.15-1.2) 04/18/24 18:43 AST 16 U/L (0-32) 04/18/24 18:43 ALT 18 U/L (0-33) 04/18/24 18:43 Alkaline Phosphatase 60 U/L (35-105) 04/18/24 18:43 Total Protein 7.1 g/dL (6.6-8.7) 04/18/24 18:43 Albumin 4.1 g/dL (3.5-5.2) 04/18/24 18:43 Globulin 3.0 g/dL (1.3-4.6) 04/18/24 18:43 TSH 2.24 uIU/mL (0.27-4.20) 04/18/24 18:43 Urine Color Yellow (Yellow) 04/18/24 22:34 Urine Appearance Clear (CLEAR) 04/18/24 22:34 Urine pH 5.5 (5-7) 04/18/24 22:34 Ur Specific [place] 1.007 (1.005-1.030) 04/18/24 22:34 Urine Protein Negative (Negative) 04/18/24 22:34 Urine Glucose (UA) Negative (Normal) 04/18/24 22:34 Urine Ketones Negative (Negative) 04/18/24 22:34 Urine Blood Negative (Negative) 04/18/24 22:34 Urine Nitrate Negative (Negative) 04/18/24 22:34 Urine Bilirubin Negative (Negative) 04/18/24 22:34 Urine Urobilinogen 0.2 mg/dL (Negative) 04/18/24 22:34 Ur Leukocyte Esterase 1+ (Negative) A 04/18/24 22:34 Urine RBC 11-20 /hpf (0-2) H 04/18/24 22:34 Urine WBC 6-10 /hpf (0-5) 04/18/24 22:34 Ur Squamous Epith Cells 6-10 /hpf (0-5) 04/18/24 22:34 Amorphous Sediment Not Reportable 04/18/24 22:34 Urine Bacteria None seen /hpf (NONE) 04/18/24 22:34 Hyaline Casts 2.46 /lpf 04/18/24 22:34 Salicylates < 0.3 mg/dL (3-10) L 04/18/24 18:43 Urine Opiates Screen Negative ng/mL (Negative) 04/18/24 22:34 Acetaminophen < 5.0 ug/mL (10-30) L 04/18/24 18:43 Ur Barbiturates Screen Negative ng/mL (Negative) 04/18/24 22:34 Ur Phencyclidine Scrn Negative ng/mL (Negative) 04/18/24 22:34 Ur Amphetamines Screen Negative ng/mL (Negative) 04/18/24 22:34 U Benzodiazepines Scrn Negative ng/mL (Negative) 04/18/24 22:34 Urine Cocaine Screen Negative ng/mL (Negative) 04/18/24 22:34 U Marijuana (THC) Screen Positive ng/mL (Negative) H 04/18/24 22:34 Ethyl Alcohol 116 mg/dL (0-10) H 04/19/24 01:30 Coronavirus (PCR) Negative (Negative) 04/19/24 04:59 Influenza A (PCR) Negative (Negative) 04/19/24 04:59 Influenza Type B (PCR) Negative (Negative) 04/19/24 04:59 RSV (PCR) Negative (Negative) 04/19/24 04:59 All radiology interpretation(s) finalized by discharge Discharge Plan Discharge Patient Disposition: Xfer Psychiatric Hosp Clinical Impression: Suicidal ideation, Alcohol intoxication, Alcohol abuse Condition: Stable Prescriptions: No Action aspirin 81 mg tablet,delayed release (DR/EC) 81 mg PO DAILY Qty: 90 3RF amlodipine 5 mg tablet 5 mg PO DAILY Qty: 90 3RF pantoprazole [Protonix] 40 mg tablet,delayed release (DR/EC) 40 mg PO DAILY 90 Days Qty: 90 3RF metoprolol succinate 25 mg tablet extended release 24 hr 25 mg PO BID Qty: 180 3RF isosorbide mononitrate 60 mg tablet extended release 24 hr 60 mg PO BID Qty: 180 3RF clopidogrel 75 mg tablet 75 mg PO DAILY Qty: 90 3RF Hold Instructions: Resume on 01/04/23. clonazepam 0.5 mg tablet 0.5 mg PO BID Qty: 60 5RF nitroglycerin [Nitrostat] 0.4 mg tablet, sublingual 0.4 mg SUBLINGUAL Q5M PRN (Reason: Chest Pain) Qty: 20 2RF Rx Instructions: do not exceed 3 doses per episode insulin glargine [Lantus Solostar U-100 Insulin] 100 unit/mL (3 mL) insulin pen 10 unit SUBCUT DAILY Qty: 15 3RF ipratropium-albuterol 0.5 mg-3 mg(2.5 mg base)/3 mL solution for nebulization 3 ml inhalation Q4H PRN (Reason: wheezing) Qty: 180 1RF (DME) pen needle, diabetic [TechLITE Pen Needle] 31 gauge x 3/16 needle See Rx Instructions .Route Qty: 100 0RF Rx Instructions: As directed - TEST UP TO 3 TIMES DAILY epinephrine [EpiPen 2-Redd] 0.3 mg/0.3 mL auto-injector 0.3 mg IM Q4H PRN (Reason: anaphylaxis) Qty: 2 1RF Creon 3,000-9,500- 15,000 unit capsule,delayed release(DR/EC) 1 cap PO TID Qty: 90 5RF atorvastatin 40 mg tablet 40 mg PO BEDTIME albuterol sulfate 90 mcg/actuation HFA aerosol inhaler 2 puff inhalation QID PRN (Reason: Shortness Of Breath) docusate sodium 100 mg capsule 100 mg PO DAILY gabapentin 300 mg capsule 600 mg PO TID cefdinir 300 mg capsule 300 mg PO Q12H prazosin 2 mg capsule 2 mg PO BEDTIME Referrals: Frnak Smith DO [Primary Care Provider] - Coding Level of Care Code ED Inside Upholsterer for Aneeshg Darnell
[2024-04-18 19:41] LABS: Acetaminophen < 5.0 ug/mL (10-30); Salicylate < 0.3 mg/dL (3-10)
--- NOTE | 2024-04-18 19:50 | XRR_ITS ---
PROCEDURE INFORMATION: Exam: XR Abdomen Exam date and time: 04/18/2024 7:44 PM Age: 63 years old Clinical indication: Nausea and vomiting; Prior surgery; Surgery date: 6+ months; Surgery type: Spleen, gb, appy, colon resection, kyphoplasty, hysterectomy; Patient HX: N/v; Diarrhea; Lethargy; Possible overdose/intoxication TECHNIQUE: Imaging protocol: Radiologic exam of the abdomen. Views: Frontal supine view of the abdomen. 1 View. COMPARISON: CT abdomen pelvis con [id number] 02/17/2023 9:36 PM FINDINGS: Heart/Mediastinum: Surgical clips at the expected level of the GE junction, right upper quadrant, and midline abdominopelvic region. Gastrointestinal tract: Nonspecific bowel gas pattern. Predominant scattered colon gas along with some air in the stomach. Vasculature: Vascular calcification is seen. No indication of free air. Bones/joints: Prior vertebroplasty T12. Other findings: Psoas margins appear distinct. XR/XR KUB portable [id number] IMPRESSION: Nonspecific nonobstructive bowel gas pattern appearance.
[2024-04-18] MEDS: ondansetron 2 mg/ML SDV 2 mL 8 MG IVP (20:01)
[2024-04-18] MEDS: sodium chloride 0.9% 1,000 ML 999 ML IV ×2 (20:33→22:16)
[2024-04-18 20:57] LABS: Reflex Lactate Order REFLEX LACTIC ORDERD
[2024-04-18 21:06] VITALS: BP 99/55; PULSE 77; RESP 23; O2SAT 95
[2024-04-18 21:37] VITALS: BP 105/82; PULSE 99; RESP 22; O2SAT 94
[2024-04-18 22:02] LABS: Lactic Acid level (Lactate) 2.6 mmol/L (0.5-2.2)
[2024-04-18 22:51] VITALS: BP 100/66; PULSE 79; RESP 16; O2SAT 97
[2024-04-18 22:52] LABS: Bilirubin Urine Negative (Negative); Blood Urine Negative (Negative); Glucose Urine UA Negative (Normal); Ketones Urine Negative (Negative); Leukocyte Esterase Urine 1+ (Negative); Nitrate Urine Negative (Negative); Protein Urine Negative (Negative); Specific Gravity, Urine 1.007 (1.005-1.030); Urine Appearance Clear (CLEAR); Urine Color Yellow (Yellow); Urobilinogen Urine 0.2 mg/dL (Negative); pH Urine 5.5 (5-7)
[2024-04-18 22:57] LABS: Bacteria Urine None Seen /hpf; Hyaline Casts Urine 2.46 /lpf
[2024-04-18 22:58] LABS: Amphetamines Screen Urine Negative (Negative); Barbiturates Screen Urine Negative (Negative); Benzodiazepines Screen Urine Negative (Negative); Cocaine Screen Urine Negative (Negative); Opiate Screen Urine Negative (Negative); PCP Screen Urine Negative (Negative); THC Screen Urine Positive (Negative)
--- NOTE | 2024-04-18 23:30 | PC.NURSE ---
pt at door yelling at staff stating she wants to call her and wants to leave. pt reminded that she is on a 96hr hold. pt continues to escalate and starts slamming her door and pulls out her IV. notified. to room to assist. orders given to medicate pt.
[2024-04-18] MEDS: LORazepam 2 mg/mL INJ 1 mL 0.5 MG IM (23:47)
[2024-04-18] MEDS: haloperidol inj 5 mg/mL INJ 1 mL IM (23:47)
[2024-04-19 01:37] LABS: Basophils % 0.2 %; Eosinophils % 0.1 %; Hematocrit 38.2 % (36-47); Lymphocytes # 1.9 10^3/uL (0.8-4.8); Lymphocytes % 14.3 %; Mean Corpuscular HGB Conc 32.2 g/dL (30-55); Mean Corpuscular Hemoglobin 30.5 pg (27-33); Mean Corpuscular Volume 94.8 fl (85-98); Mean Platelet Volume 8.5 fL (7.4-10.4); Monocytes # 0.7 10^3/uL (0.2-0.9); Monocytes % 5.6 %; Neutrophils # 10.25 10^3/uL (1.8-7.7); Neutrophils % 79.4 %; Nucleated Red Blood Cells % 0 %; Platelet Count 272 10^3/cmm (157-399); Red Blood Count 4.03 10^6/uL (3.85-5.65); Red Cell Distribution Width 13.1 % (12.1-15.1); White Blood Count 12.91 10^3/uL (3.29-11.43)
[2024-04-19 01:56] LABS: Alcohol Level 116 mg/dL (0-10)
--- NOTE | 2024-04-19 02:30 | PC.NURSE ---
pt resting comfortably with eyes closed. respirations even and non labored. side rails up. bed low/locked. no needs identified. sitter in place. will continue to monitor.
--- NOTE | 2024-04-19 04:48 | PC.NURSE ---
Contacted by [place]. They state that their transport is unable to come get the patient, but they are going to reach out to their local EMS to try to setup transport and will let us know.
[2024-04-19 05:38] LABS: Covid PCR NEGATIVE (Negative); Influenza A NEGATIVE (Negative); Influenza B NEGATIVE (Negative); Respiratory Syncytial Virus Ce NEGATIVE (Negative)
--- NOTE | 2024-04-19 05:59 | PC.NURSE ---
During triage pt was altered and unable to answer questions. Suicide risk assessment was not completed at this time due to patients mental status.
[2024-04-19 06:00] VITALS: BP 98/67; PULSE 67; RESP 14; O2SAT 94
--- NOTE | 2024-04-19 06:00 | PC.NURSE ---
to room to help clean up pt. new paper scrubs provided. bedside commode removed from room and cleaned. bed adjusted for pt comfort.
--- NOTE | 2024-04-19 07:09 | PC.NURSE ---
I went in to introduce myself to the patient, patient was sleeping in bed quietly. I awoke her and got new vitals and spoke with her briefly regarding why she was here. Patient admits to drinking excessively since her sister last week. Patient states that she does not want to take her medications because if she does she cannot drink. Patient also states that she does not want to be here and she wants to run away from everything. Patient is cooperative with me and rolled over and went back to sleeping.
[2024-04-19 07:18] VITALS: BP 112/70; PULSE 80; RESP 16; O2SAT 98
[2024-04-19] MEDS: loperamide 2 mg Capsule 4 MG PO (12:18)
[2024-04-19 18:01] VITALS: BP 100/64; PULSE 87; RESP 22; O2SAT 96
[2024-04-19] MEDS: LORazepam 1 mg Tablet PO (18:10)
[2024-04-19 20:13] VITALS: BP 100/64; PULSE 87; O2SAT 96
== END 2024-04-19 20:15 ==
PROVIDERS: Emergency Medicine; Emergency Provider Emergency Medicine; PCP Family Medicine
DX: R45.851 Suicidal ideations (principal); F10.129 Alcohol abuse with intoxication, unspecified; Y90.5 Blood alcohol level of 100-119 mg/100 ml; Z79.82 Long term (current) use of aspirin; Z79.02 Long term (current) use of antithrombotics/antiplatelets; Z79.4 Long term (current) use of insulin; E11.9 Type 2 diabetes mellitus without complications; I10 Essential (primary) hypertension
CPT/HCPCS: 0241U; 36415; 70450; 71045; 74018; 80053; 80306; 80307; 81001; 83605; 84443; 85025; 93005; 96361; 96372; 96374; 96375; 99285; J1630; J2060; J2405; J3411; J7030

== ENCOUNTER 2024-05-24 21:31 | Inpatient (IN) | payer BC, SELFPAY ==
[2024-05-24] VITALS (10 sets, daily range): BP systolic 137–172; BP diastolic 105–122; PULSE 93–109; RESP 18–33; TEMP 36.6; O2SAT 93–98; BMI 18.8
[2024-05-24 22:59] LABS: Covid PCR NEGATIVE (Negative); Influenza A NEGATIVE (Negative); Influenza B NEGATIVE (Negative); Respiratory Syncytial Virus Ce NEGATIVE (Negative)
--- NOTE | 2024-05-24 23:03 | XRR_ITS ---
PROCEDURE INFORMATION: Exam: XR Abdomen Exam date and time: 05/24/2024 11:17 PM Age: 63 years old Clinical indication: Nausea and vomiting; Prior surgery; Surgery date: 6+ months; Surgery type: Gb. Spleen. Kyphoplasty. Bowel resection. Hysterectomy. Patient HX: C/O n/v. History of obstruction. ; Additional info: Nausea vomiting, history of bowel obstruction TECHNIQUE: Imaging protocol: Radiologic exam of the abdomen. Views: Frontal supine view of the abdomen. 1 View. COMPARISON: CR XR KUB portable [id number] 04/18/2024 7:44 PM FINDINGS: Gastrointestinal tract: Anastomotic reginaldo projecting over the left lower quadrant and pelvis. Intraperitoneal space: Surgical clips along the GE junction, right upper quadrant, and lower mid abdomen. Bones/joints: T12 vertebroplasty. XR/XR abdomen 1V* [id number] IMPRESSION: No acute findings.
--- NOTE | 2024-05-24 23:06 | ED_ITS ---
HPI - Nausea/Vomiting/Diarrhea 2 General: Chief complaint: Upper Respiratory Infection Stated complaint: vommiting Time Seen by Provider: 05/24/24 21:45 History of Present Illness: Patient presents to the ER with nausea vomiting for the last several days. Not been able keep anything down even her medicines. Patient think she has a stomach flu that she caught from her brother. He had it before and now he is all better but she is not. Patient does have a history of small bowel obstructions per her. But usually has more abdominal pain than she has now. Related Data Home Medications Medication Instructions Recorded Confirmed albuterol sulfate 90 mcg/actuation 2 puff inhalation QID PRN 04/09/24 05/04/24 aerosol inhaler Shortness Of Breath atorvastatin 40 mg tablet 40 mg PO BEDTIME 04/09/24 05/04/24 cefdinir 300 mg capsule 300 mg PO Q12H 04/19/24 05/04/24 docusate sodium 100 mg capsule 100 mg PO DAILY 04/19/24 05/04/24 gabapentin 300 mg capsule 600 mg PO TID 04/19/24 05/04/24 prazosin 2 mg capsule 2 mg PO BEDTIME 04/19/24 05/04/24 Previous Rx's Medication Instructions Recorded aspirin 81 mg tablet,delayed 81 mg PO DAILY #90 tabs 02/25/23 release epinephrine 0.3 mg/0.3 mL 0.3 mg (0.3 mL) IM Q4H PRN 10/30/23 injection, auto-injector (EpiPen anaphylaxis #2 ea 2-Redd) amlodipine 5 mg tablet 5 mg PO DAILY #90 tabs 02/11/24 clonazepam 0.5 mg tablet 0.5 mg PO BID #60 tabs 03/31/24 clopidogrel 75 mg tablet 75 mg PO DAILY #90 tabs 03/31/24 insulin glargine 100 unit/mL (3 10 unit (0.1 mL) SUBCUT DAILY #15 03/31/24 mL) subcutaneous pen (Lantus mL Solostar U-100 Insulin) ipratropium 0.5 mg-albuterol 3 mg 3 ml inhalation Q4H PRN wheezing 03/31/24 (2.5 mg base)/3 mL nebulization #180 mL soln isosorbide mononitrate 60 mg 60 mg PO BID #180 tabs 03/31/24 tablet,extended release 24 hr metoprolol succinate 25 mg 25 mg PO BID #180 tabs 03/31/24 tablet,extended release 24 hr nitroglycerin 0.4 mg sublingual 0.4 mg sublingual Q5M PRN Chest 03/31/24 tablet (Nitrostat) Pain #20 tabs pantoprazole 40 mg tablet,delayed 40 mg PO DAILY 90 days #90 tabs 03/31/24 release (Protonix) mwryde-meifblqr-yjaiauc 1 cap PO TID #90 caps 04/09/24 3,000-9,500-15,000 unit capsule, delayed rel (Creon) pen needle, diabetic 32 gauge x #100 ea 05/21/24 (TechLITE Pen Needle) Allergies Allergy/AdvReac Type Severity Reaction Status Date / Time ciprofloxacin [From Cipro] Allergy Severe Unresponsiv Verified 05/04/24 11:12 e codeine Allergy Severe ALGY-Anaphy Verified 05/04/24 11:12 laxis lidocaine Allergy Severe ALGY-Swell Verified 05/04/24 11:12 Lip/Tongue/Throat morphine Allergy Severe ALGY-Anaphy Verified 05/04/24 11:12 laxis Penicillins Allergy Severe ALGY-Swell Verified 05/04/24 11:12 Lip/Tongue/Throat procaine [From Novocain] Allergy Severe ALGY-Swell Verified 05/04/24 11:12 Lip/Tongue/Throat prochlorperazine Allergy Severe ALGY-Swell Verified 05/04/24 11:12 [From Compazine] Lip/Tongue/Throat adhesive tape Allergy Unknown Unknown Verified 05/04/24 11:12 Sulfa (Sulfonamide Allergy Unknown Unknown Verified 05/04/24 11:12 Antibiotics) methocarbamol Allergy ALGY-Redness Verified 05/04/24 11:12 of Skin Review of Systems 2 General: Reports: 10 or more systems reviewed and unremarkable except in HPI and below PFSH ED 2 PFSH: Medical History Psychiatric care UTI (urinary tract infection) Claudication Atherosclerosis of coronary artery Type 2 diabetes mellitus without complication, with no history of insulin use Shortness of breath Cough Generalized body aches Fatigue Essential hypertension Neutrophilic leukocytosis Pancreatitis Myocardial infarction acute 09/2019 SBO (small bowel obstruction) HTN (hypertension) with goal to be determined Depression Surgical History History of 3 sections S/P DONNA-BSO History of incisional hernia repair Status post colonoscopy S/P cardiac cath History of appendectomy H/O exploratory laparotomy Multiple bowel resections S/P cholecystectomy Family History Mother Cancer, Onset Age: 60 Double mastectomy Sister Cancer, Onset Age: 53 double mastectomy Sister Cancer, Onset Age: 52 partial mastectomy Social History Smoking and tobacco/nicotine status: current every day tobacco/nicotine user cigarettes [ Other cigarette details: On and off ] Alcohol intake: current Alcohol intake frequency: holidays/special occasions only Substance/Drug Use: never Female Reproductive History: Spontaneous abortions: No Physical Exam 2 Const: COMMON NORMALS: no acute distress, average body habitus, patient oriented x3, no limitations, healthy appearing, alert and well nourished HENMT: COMMON NORMALS: normocephalic, atraumatic, hearing grossly normal bilaterally, external ears normal, Normal external nose present and moist oral mucous membranes HEAD & SCALP: normocephalic and atraumatic NOSE: Normal external nose present EXTERNAL EAR: Yes external ears normal Neck/C-Spine: COMMON NORMALS: no JVD Chest: COMMONS NORMALS: normal inspection of the chest and normal palpation of entire chest wall Resp: COMMON NORMALS: normal respiratory effort, No retractions, No use of accessory muscles and clear to auscultation bilaterally AUSCULTATION: clear to auscultation bilaterally Cardio: COMMON NORMALS: no JVD, regular rate, regular rhythm, S1 normal heart sound present, S2 normal heart sound present, No gallops present (Cardio), No clicks present (Cardio), No murmurs present (Cardio) and No rub (Cardio) R ATE: regular rate RHYTHM: regular rhythm HEART SOUNDS: S1 normal heart sound present and S2 normal heart sound present GI: COMMON NORMALS: Normal to inspection, nondistended, normoactive bowel sounds present, Soft to palpation, No hepatosplenomegaly present and no masses; negative for non-tender (Diffuse mild tenderness) PALPATION: Yes Soft to palpation and Yes No hepatosplenomegaly present Neuro: COMMON NORMALS: patient oriented x3 SENSORIUM/ORIENTATION: Yes alert Course 2 Vital Signs: Vital signs: Vital Signs Temperature 97.9 F 05/24/24 21:32 Pulse Rate 109 H 05/24/24 23:25 Respiratory Rate 33 H 05/24/24 23:25 Blood Pressure 172/122 05/24/24 23:30 Pulse Oximetry 98 05/24/24 23:30 Oxygen Delivery Me thod Room Air 05/24/24 22:37 MDM - Nausea/Vomiting/Diarrhea Medical Decision Making Patient is a beta Zofran, 1 L normal saline bolus, lab work showed a normal white count of 10.6, sodium 128 potassium 5.2, BUN/creatinine of 85 and 4.8 which is totally normal approximate month ago. Urine showed trace ketones x-ray of the area read by myself was negative for obstructive type pattern. These results was discussed with Dr.Adimora Guido Curry who agreed to take the patient for further evaluation treatment. Lactic acid phosphorus are still pending. Medical Records I reviewed the patient's medical records. Lab Data I reviewed the patient's lab results. 05/24/24 23:25 05/24/24 23:25 Laboratory Results WBC 10.64 10^3/uL (3.29-11.43) 05/24/24 23: RBC 5.07 10^6/uL (3.85-5.65) 05/24/24 23:25 Hgb 15.20 g/dL (11.27-16.99) 05/24/24 23: Hct 43.3 % (36-47) 05/24/24 23: MCV 85.4 fl (85-98) 05/24/24 23:25 MCH 30.0 pg (27-33) 05/24/24 23: MCHC 35.1 g/dL (30-55) 05/24/24 23: RDW 12.8 % (12.1-15.1) 05/24/24 23:25 Plt Count 364 10^3/cmm (157-399) 05/24/24 23:25 MPV 8.8 fL (7.4-10.4) 05/24/24 23: Neut % (Auto) 73.2 % 05/24/24 23:25 Lymph % (Auto) 13.0 % 05/24/24 23:25 [place] % (Auto) 13.3 % 05/24/24 23:25 Eos % (Auto) 0.0 % 05/24/24 23:25 Baso % (Auto) 0.1 % 05/24/24 23:25 Neut # (Auto) 7.79 10^3/uL (1.8-7.7) H 05/24/24 23:25 Lymph # (Auto) 1.4 10^3/uL (0.8-4.8) 05/24/24 23:25 [place] # (Auto) 1.4 10^3/uL (0.2-0.9) H 05/24/24 23:25 Eos # (Auto) 0.0 10^3/uL (0.0-0.8) 05/24/24 23:25 Baso # (Auto) 0.0 10^3/uL (0.0-0.1) 05/24/24 23:25 Nucleated RBC % (auto) 0 % 05/24/24 23:25 Nucleated RBCs # 0.0 /100WBC 05/24/24 23:25 Sodium 128 mmol/L (136-145) L 05/24/24 23:25 Potassium 5.2 mmol/L (3.5-5.1) H 05/24/24 23:25 Chloride 82 mmol/L (98-107) L 05/24/24 23:25 Carbon Dioxide 18 mmol/L (22-29) L 05/24/24 23:25 Anion Gap 33.2 (5-19) H 05/24/24 23:25 BUN 85 mg/dL (8-23) H* D 05/24/24 23:25 Creatinine 4.8 mg/dL (0.5-0.9) H 05/24/24 23:25 GFR Calculation 9.1 mL/min (90-130) L 05/24/24 23:25 Glucose 258 mg/dL (65-115) H 05/24/24 23:25 Calculated Osmolality 301 mOsm/kg (285-295) H 05/24/24 23:25 Calcium 8.8 mg/dL (8.5-10.5) 05/24/24 23:25 Magnesium 1.8 mg/dL (1.7-2.3) 05/24/24 23:25 Total Bilirubin 0.5 mg/dL (0.15-1.2) 05/24/24 23:25 AST 21 U/L (0-32) 05/24/24 23:25 ALT 23 U/L (0-33) 05/24/24 23:25 Alkaline Phosphatase 73 U/L (35-105) 05/24/24 23:25 Total Protein 7.8 g/dL (6.6-8.7) 05/24/24 23:25 Albumin 4.4 g/dL (3.5-5.2) 05/24/24 23:25 Globulin 3.4 g/dL (1.3-4.6) 05/24/24 23:25 Lipase 16 U/L (13-60) 05/24/24 23:25 Urine Color Yellow (Yellow) 05/24/24 22:59 Urine Appearance Turbid (CLEAR) A 05/24/24 22:59 Urine pH 5.0 (5-7) 05/24/24 22:59 Ur Specific [place] 1.017 (1.005-1.030) 05/24/24 22:59 Urine Protein 2+ (Negative) A 05/24/24 22:59 Urine Glucose (UA) Negative (Normal) 05/24/24 22:59 Urine Ketones Trace (Negative) 05/24/24 22:59 Urine Blood Negative (Negative) 05/24/24 22:59 Urine Nitrate Negative (Negative) 05/24/24 22:59 Urine Bilirubin Negative (Negative) 05/24/24 22:59 Urine Urobilinogen 1.0 mg/dL (Negative) 05/24/24 22:59 Ur Leukocyte Esterase Negative (Negative) 05/24/24 22:59 Urine RBC 6-10 /hpf (0-2) 05/24/24 22:59 Urine WBC 0-5 /hpf (0-5) 05/24/24 22:59 Ur Squamous Epith Cells 11-20 /hpf (0-5) 05/24/24 22:59 Calcium Oxalate Crystal 0-4 /hpf H 05/24/24 22:59 Amorphous Sediment 2+ /hpf 05/24/24 22:59 Urine Bacteria None seen /hpf (NONE) 05/24/24 22:59 Hyaline Casts 64.52 /lpf 05/24/24 22:59 Coronavirus (PCR) Negative (Negative) 05/24/24 22:00 Influenza A (PCR) Negative (Negative) 05/24/24 22:00 Influenza Type B (PCR) Negative (Negative) 05/24/24 22:00 RSV (PCR) Negative (Negative) 05/24/24 22:00 All radiology interpretation(s) finalized by discharge Discharge Plan Discharge Patient Disposition: Admitted As Inpatient Clinical Impression: Gastroenteritis, Acute hyponatremia Acute renal failure Qualifiers: Acute renal failure type: unspecified Qualified Code(s): N17.9 - Acute kidney failure, unspecified Condition: Stable Coding Level of Care Code ED Diabetes Trainer for Sonya Patrick
[2024-05-24 23:28] LABS: Bilirubin Urine Negative (Negative); Blood Urine Negative (Negative); Glucose Urine UA Negative (Normal); Ketones Urine Trace (Negative); Leukocyte Esterase Urine Negative (Negative); Nitrate Urine Negative (Negative); Protein Urine 2+ (Negative); Specific Gravity, Urine 1.017 (1.005-1.030); Urine Appearance Turbid (CLEAR); Urine Color Yellow (Yellow)
[2024-05-24] MEDS: ondansetron 2 mg/ML SDV 2 mL 8 MG IVP (23:28)
[2024-05-24 23:30] LABS: Bacteria Urine None Seen /hpf; Hyaline Casts Urine 64.52 /lpf; Universal Test for UA Present (0); WBC Urine 0-5 /hpf (0-5)
[2024-05-24 23:33] LABS: Basophils % 0.1 %; Hematocrit 43.3 % (36-47); Lymphocytes # 1.4 10^3/uL (0.8-4.8); Mean Corpuscular HGB Conc 35.1 g/dL (30-55); Mean Corpuscular Volume 85.4 fl (85-98); Mean Platelet Volume 8.8 fL (7.4-10.4); Monocytes # 1.4 10^3/uL (0.2-0.9); Monocytes % 13.3 %; Neutrophils # 7.79 10^3/uL (1.8-7.7); Neutrophils % 73.2 %; Nucleated Red Blood Cells % 0 %; Platelet Count 364 10^3/cmm (157-399); Red Blood Count 5.07 10^6/uL (3.85-5.65); Red Cell Distribution Width 12.8 % (12.1-15.1); White Blood Count 10.64 10^3/uL (3.29-11.43)
[2024-05-24 23:46] LABS: Calcium Oxalate Crystals Urine 0-4 /hpf
[2024-05-24 23:47] LABS: Add Urine Culture? No; Amorphous Sediment Urine 2+ /hpf
[2024-05-24 23:50] LABS: Alanine Aminotransferase 23 U/L (0-33); Albumin Level 4.4 g/dL (3.5-5.2); Alkaline Phosphatase 73 U/L (35-105); Calcium 8.8 mg/dL (8.5-10.5); Carbon Dioxide 18 mmol/L (22-29); Chloride 82 mmol/L (98-107); Creatinine Clr Calc Pharmacy 8.7523; Globulin 3.4 g/dL (1.3-4.6); Glomerular Filtration Rate 9.1 mL/min (90-130); Glucose 258 mg/dL (65-115); Lipase 16 U/L (13-60); Magnesium 1.8 mg/dL (1.7-2.3); Osmolality Calculated 301 mOsm/kg (285-295); Sodium 128 mmol/L (136-145); Total Bilirubin 0.5 mg/dL (0.15-1.2); Total Protein 7.8 g/dL (6.6-8.7)
[2024-05-24 23:52] LABS: Anion Gap 33.2 (5-19); Aspartate Amino Transferase 21 U/L (0-32); Blood Urea Nitrogen 85 mg/dL (8-23); Potassium 5.2 mmol/L (3.5-5.1)
[2024-05-25] VITALS (18 sets, daily range): BP systolic 107–157; BP diastolic 72–117; PULSE 89–124; RESP 16–37; TEMP 36.3–37.6; O2SAT 92–99; BMI 20.2
--- NOTE | 2024-05-25 00:06 | P.HP_ITS ---
Providers/Chief Complaint 2 Primary Care Provider: Frank Smith DO Chief Complaint: vommiting History of Present Illness Yessi Schulte is a 63 year old female w/ a Crohn's Disease in remission s/p multiple bowel resections w/ subsequent hx of SBOs, HTN, non-IDDM2, CAD, & [place] in 09/2019, who presents to [facility] on the late night of 05/25/2024 w/ complains of n/v x 3 days. The patient woke up feeling nauseous all day, the day after [employer] and then started vomiting on 05/22/2024. She started having episodes of greenish brown emesis, and now no longer has any emesis. SHe remains constantly nauseous. She endorses 3-4 episodes non-melenic, no hematochezia, watery stools approximately 2 days ago, but have had none since. She endorses f/c, dizziness, light headedness. She endorses losing consciousness 2 days ago, but she denies falling because her caught her In the ED, she was tachycardic and tachypneic. SHe was hyponatremic to 128 w/ K+ of 5.8 and Cr of 4.8. Her COVID, Influenza A&B, and RSV were negative. An abdominal x-ray was done that showed no acute findings. She was given 1L NS and admitted. Review of Systems 2 Const: Reports: fever(s), chills, change in appetite (poor ) and malaise Eyes: Reports: blurry vision ENMT: Reports: ear or mastoid pain (R. ear pain when she coughs); Denies: ear discharge Card: Reports: chest pain; Denies: palpitations Resp: Reports: dyspnea; Denies: productive cough or wheezing GI: Reports: abdominal pain, nausea, vomiting and diarrhea; Denies: hematochezia or melena : Denies: difficulty voiding, dysuria, urinary frequency or urinary urgency Musc: Reports: joint pain and other (no myalgia) Skin/Breast: Denies: rash or new lesions Neuro: Reports: headache(s) and dizziness Psych: Reports: anxiety and depression; Denies: suicidal ideation or homicidal ideation Endo: Denies: cold intolerance or heat intolerance Keaton/Lymph: Denies: easy bruising Medications/Allergies Home Medications Medication Instructions Recorded Confirmed Last Taken Type aspirin 81 mg tablet,delayed 81 mg PO DAILY #90 tabs 02/25/23 05/04/24 04/18/24 Rx release epinephrine 0.3 mg/0.3 mL 0.3 mg (0.3 mL) IM Q4H PRN 10/30/23 05/04/24 Unknown Rx injection, auto-injector (EpiPen anaphylaxis #2 ea 2-Redd) amlodipine 5 mg tablet 5 mg PO DAILY #90 tabs 02/11/24 05/04/24 04/17/24 Rx clonazepam 0.5 mg tablet 0.5 mg PO BID #60 tabs 03/31/24 05/04/24 04/18/24 Rx clopidogrel 75 mg tablet 75 mg PO DAILY #90 tabs 03/31/24 05/04/24 04/18/24 Rx insulin glargine 100 unit/mL (3 10 unit (0.1 mL) SUBCUT DAILY #15 03/31/24 05/04/24 04/18/24 Rx mL) subcutaneous pen (Lantus mL Solostar U-100 Insulin) ipratropium 0.5 mg-albuterol 3 mg 3 ml inhalation Q4H PRN wheezing 03/31/24 05/04/24 Unknown Rx (2.5 mg base)/3 mL nebulization #180 mL soln isosorbide mononitrate 60 mg 60 mg PO BID #180 tabs 03/31/24 05/04/24 04/18/24 Rx tablet,extended release 24 hr metoprolol succinate 25 mg 25 mg PO BID #180 tabs 03/31/24 05/04/24 04/18/24 Rx tablet,extended release 24 hr nitroglycerin 0.4 mg sublingual 0.4 mg sublingual Q5M PRN Chest 03/31/24 05/04/24 Unknown Rx tablet (Nitrostat) Pain #20 tabs pantoprazole 40 mg tablet,delayed 40 mg PO DAILY 90 days #90 tabs 03/31/24 05/04/24 04/18/24 Rx release (Protonix) albuterol sulfate 90 mcg/actuation 2 puff inhalation QID PRN 04/09/24 05/04/24 Unknown History aerosol inhaler Shortness Of Breath atorvastatin 40 mg tablet 40 mg PO BEDTIME 04/09/24 05/04/2404/17/24 History xkoysv-wkocexmb-pfunmgx 1 cap PO TID #90 caps 04/09/24 05/04/24 Unknown Rx 3,000-9,500-15,000 unit capsule, delayed rel (Creon) cefdinir 300 mg capsule 300 mg PO Q12H 04/19/24 05/04/24 04/18/24 History docusate sodium 100 mg capsule 100 mg PO DAILY 04/19/24 05/04/24 04/18/24 History gabapentin 300 mg capsule 600 mg PO TID 04/19/24 05/04/24 04/18/24 History prazosin 2 mg capsule 2 mg PO BEDTIME 04/19/24 05/04/24 04/17/24 History pen needle, diabetic 32 gauge x #100 ea 05/21/24 Unknown Rx (TechLITE Pen Needle) Allergies Allergy/AdvReac Type Severity Reaction Status Date / Time ciprofloxacin [From Cipro] Allergy Severe Unresponsiv Verified 05/04/24 11:12 e codeine Allergy Severe ALGY-Anaphy Verified 05/04/24 11:12 laxis lidocaine Allergy Severe ALGY-Swell Verified 05/04/24 11:12 Lip/Tongue/Throat morphine Allergy Severe ALGY-Anaphy Verified 05/04/24 11:12 laxis Penicillins Allergy Severe ALGY-Swell Verified 05/04/24 11:12 Lip/Tongue/Throat procaine [From Novocain] Allergy Severe ALGY-Swell Verified 05/04/24 11:12 Lip/Tongue/Throat prochlorperazine Allergy Severe ALGY-Swell Verified 05/04/24 11:12 [From Compazine] Lip/Tongue/Throat adhesive tape Allergy Unknown Unknown Verified 05/04/24 11:12 Sulfa (Sulfonamide Allergy Unknown Unknown Verified 05/04/24 11:12 Antibiotics) methocarbamol Allergy ALGY-Redness Verified 05/04/24 11:12 of Skin PFSH Acute 2 PFSH: Medical History Psychiatric care UTI (urinary tract infection) Claudication Atherosclerosis of coronary artery Type 2 diabetes mellitus without complication, with no history of insulin use Shortness of breath Cough Generalized body aches Fatigue Essential hypertension Neutrophilic leukocytosis Pancreatitis Myocardial infarction acute 09/2019 SBO (small bowel obstruction) HTN (hypertension) with goal to be determined Depression Surgical History History of 3 sections S/P DONNA-BSO History of incisional hernia repair Status post colonoscopy S/P cardiac cath History of appendectomy H/O exploratory laparotomy Multiple bowel resections S/P cholecystectomy Family History Mother Cancer, Onset Age: 60 Double mastectomy Sister Cancer, Onset Age: 53 double mastectomy Sister Cancer, Onset Age: 52 partial mastectomy Social History Smoking and tobacco/nicotine status: current every day tobacco/nicotine user cigarettes [ Other cigarette details: On and off ] Alcohol intake: current Alcohol intake frequency: holidays/special occasions only Substance/Drug Use: never Female Reproductive History: Spontaneous abortions: No Vitals/I&O/Wt Last Vital Signs Temp 97.9 F 05/24/24 21:32 Pulse 109 H 05/24/24 23:25 Resp 33 H 05/24/24 23:25 BP 172/122 05/24/24 23:30 Pulse Ox 98 05/24/24 23:30 O2 Del Method Room Air 05/24/24 22:37 Weight last 48 hrs Weight 45.359 kg Physical Exam 2 Const: GENERAL APPEARANCE: cooperative, ill appearing and frail appearing; not comfortable ORIENTATION/CONSCIOUSNESS: Yes awake, Yes oriented to person, Yes oriented to place and Yes oriented to time HENMT: HEAD & SCALP: normocephalic and atraumatic NOSE: Normal external nose present EXTERNAL EAR: Yes external ears normal MOUTH: Normal oral and palatal mucosa present THROAT: posterior oropharynx normal Eye: OTHER: PERRL, EOMI, normal conjunctiva bilaterally Neck/C-Spine: GENERAL: Yes normal visual inspection and Yes trachea midline THYROID: Thyroid normal CAROTIDS: No bruit CERVICAL SPINE: Yes cervical ROM normal Lymph: OTHER: No cervical or supraclavicular LAD. Resp: OTHER: CTAB with no wheezes, rales, or rhonchi. Cardio: OTHER: RRR, no murmurs, rubs, gallops or clicks. GI: OTHER: BS positive but hypoactive, tenderness to the epigastrium, and right upper upper quadrant, no guarding, no rigidity, or rebound tenderness. Extremity: GENERAL: No clubbing, No cyanosis and No edema Neuro: CRANIAL NERVES: Yes CN normal except as noted SPEECH: speech normal SENSORY EXAM: No sensory level loss detected MOTOR EXAM: 5/5 motor strength present throughout and Normal motor muscle tone present throughout Psych: APPEARANCE: Yes grossly normal and Yes well kempt ATTITUDE: Yes calm and Yes engaged ACTIVITY/MOTOR BEHAVIOR: Yes appropriate eye contact S PEECH: Yes normal speech MOOD & AFFECT: Yes tearful THOUGHT PROCESS: N ormal thought process present THOUGHT CONTENT: Yes Normal thought content present Skin: GENERAL SKIN EXAM: no rashes or lesions noted Data 05/25/24 08:06 05/24/24 23:25 A&P Assessment and plan (1) SIRS (systemic inflammatory response syndrome): (2) Intractable nausea and vomiting: (3) TALIA (acute kidney injury): Plan Yessi Schulte is a 63 year old female w/ a Crohn's Disease in remission s/p multiple bowel resections w/ subsequent hx of SBOs, HTN, non-IDDM2, CAD, & [place] in 09/2019, who presents to [facility] on the late night of 05/25/2024 w/ complains of n/v x 3 days. In the ED, she was tachycardic and tachypneic. SHe was hyponatremic to 128 w/ K+ of 5.8 and Cr of 4.8. Her COVID, Influenza A&B, and RSV were negative. An abdominal x-ray was done that showed no acute findings. She was given 1L NS and admitted. #SIRS: Unclear source #Intractable N/V - Likely due to gastroenteritis versus her renal failure vs SBO - Zofran q6h prn - Also ordered a dose of Phenergan 25 mg IM x 1 given her infiltrated IV. #TALIA -Ordered 200 cc/h x 10 hours, but patient's ultrasound-guided IV placed in the ED infiltrated, so patient has not received any IVF yet. Nurses are working on getting new IV. #Concern for SBO - CT abd/pelvis w/o contrast ordered per discussion w/ the Radiologist. #CAD, hx of [place] #HTN #HLD -Remain n.p.o. at this time. #non-IDDM2: q4h BG checks ordered with hypoglycemia protocol. Will wait to see what her morning labs show before ordering sliding scale insulin. DVT ppx:Heparin sub q GI ppx: Pantoprazole. Attestations 2 Medical Necessity Statement*: Patient needs to remain hospitalized for greater than 2 midnights for her intractable nausea vomiting, acute renal failure, and SIRS. Other Coding Information Focused coding review requested Diagnoses SIRS (systemic inflammatory response syndrome) R65.10 Intractable nausea and vomiting R11.2 TALIA (acute kidney injury) N17.9
[2024-05-25] MEDS: sodium chloride 0.9% 1,000 ML 999 ML IV (00:15)
[2024-05-25 00:16] LABS: Lactic Sepsis W/Reflex 3.1 mmol/L (0.5-2.2); Phosphorus 7.5 mg/dL (2.5-4.5)
[2024-05-25] MEDS: ondansetron 2 mg/ML SDV 2 mL 8 MG IVP (01:20)
[2024-05-25 01:48] LABS: Reflex Lactate Order REFLEX LACTIC ORDERD
[2024-05-25 02:42] LABS: Lactic Acid level (Lactate) 1.3 mmol/L (0.5-2.2)
[2024-05-25] MEDS: sodium chloride 0.9% 1,000 ML 200 ML IV ×2 (07:11→20:00)
[2024-05-25 08:21] LABS: Hematocrit 42.1 % (36-47); Mean Corpuscular HGB Conc 34.2 g/dL (30-55); Mean Corpuscular Hemoglobin 29.8 pg (27-33); Mean Corpuscular Volume 87.2 fl (85-98); Mean Platelet Volume 8.6 fL (7.4-10.4); Platelet Count 337 10^3/cmm (157-399); Red Blood Count 4.83 10^6/uL (3.85-5.65); Red Cell Distribution Width 12.9 % (12.1-15.1); White Blood Count 9.36 10^3/uL (3.29-11.43)
--- NOTE | 2024-05-25 08:23 | CT_ITS ---
WS: [id number] CT ABDOMEN PELVIS TECHNIQUE: Noncontrast CT of the abdomen and pelvis with coronal and sagittal reformatted images. CLINICAL INFORMATION: nausea vomiting COMPARISON: 02/17/2023 DLP: 290.[address] scans at [facility] use at least one of these dose optimization techniques: automated e xposure control; mA and/or kV adjustment per patient size (includes targeted exams where dose is matc hed to clinical indication); or iterative reconstruction. FINDINGS: Prior postoperative changes cholecystectomy and appendectomy. Prior hysterectomy. Prior partial colec isra. Lung bases are well aerated. Prior vertebroplasty changes at T12. Hepatic cyst in the dome of t he liver measuring 2.5 cm. Postoperative changes of the GE junction. Sigmoid colon is decompressed. Mild fecal retention in the RIGHT colon. A few loops of dilated air-fi lled small bowel in the central abdomen near the anastomosis. Terminal ileum appears decompressed. No evidence of high-grade obstruction. Recommend normal interval follow-up to exclude developing small bowel obstruction. CT/CT abdomen pelvis wo con [id number] IMPRESSION: 1. A few dilated loops of of small bowel in the lower abdomen and pelvis with a few air-fluid levels near one of the prior anastomosis. Distal ileum appears decompressed. No high-grade obstruction but recommend interval follow-up to exc lude developing small bowel obstruction in this area if persistent symptoms. 2. Colon is decompressed. Normal sigmoid colon. 3. No free fluid in the abdomen or pelvis. 4. No other significant interval changes. 5. Prior postoperative changes cholecystectomy and appendectomy. Prior hystere ctomy. Prior partial colectomy with evidence of small bowel surgery as well.
[2024-05-25 08:36] LABS: Absolute Segmented Neutrophil 5.4 10/cmm (1.6-7.1); Alanine Aminotransferase 21 U/L (0-33); Albumin Level 4.1 g/dL (3.5-5.2); Alkaline Phosphatase 63 U/L (35-105); Anion Gap 25.1 (5-19); Aspartate Amino Transferase 18 U/L (0-32); Band Neutrophils Absolute 0.3 10^3/cmm (0.0-1.2); Calcium 8.8 mg/dL (8.5-10.5); Carbon Dioxide 18 mmol/L (22-29); Chloride 91 mmol/L (98-107); Globulin 3.2 g/dL (1.3-4.6); Glomerular Filtration Rate 12.3 mL/min (90-130); Glucose 186 mg/dL (65-115); Lymphocytes 35 %; Monocytes Absolute 0.4 10^3/cmm (0.1-0.6); Osmolality Calculated 300 mOsm/kg (285-295); Phosphorus 5.9 mg/dL (2.5-4.5); Potassium 4.1 mmol/L (3.5-5.1); Segmented Neutrophils 58 %; Sodium 130 mmol/L (136-145); Total Bilirubin 0.6 mg/dL (0.15-1.2); Total Cells Counted 100 (0-100); Total Protein 7.3 g/dL (6.6-8.7)
[2024-05-25 08:37] LABS: Absolute Neutrophil 5.7 10^3/cmm (1.4-6.5); Eosinophils 0 %; INR 1.08 (0.8-1.2); Lymphocytes Absolute 3.3 10^3/cmm (1.2-3.4); Platelet Estimate Normal (Normal); Smudge Cells Trace
[2024-05-25 08:39] LABS: Partial Thromboplastin Time 23.3 SECONDS (23.9-36.7)
[2024-05-25] MEDS: promethazine 25 mg/mL SDV 1 mL IM (08:50)
[2024-05-25 08:58] LABS: Blood Urea Nitrogen 83 mg/dL (8-23); Creatinine Clr Calc Pharmacy 11.6712
[2024-05-25] MEDS: ondansetron 2 mg/ML SDV 2 mL 4 MG IVP (16:36)
--- NOTE | 2024-05-25 16:40 | P.MISC_ITS ---
Miscellaneous Note Note: #Severe TALIA with creatinine up to 4.0. #History of multiple bowel resections with subsequent history of small bowel obstructions #Hypertension #Insulin-dependent diabetes mellitus #CAD status post [place] 2019 #History of Crohn's disease in remission #History of uterine rupture #High anion gap metabolic acidosis #Lactic acidosis on admission -Patient did meet SIRS criteria on admis ernesto and presented with intractable nausea vomiting. She does have evidence of bandemia on her initial labs. For empiric coverage I will add aztreonam and metronidazole. Antibiotics chosen secondary to multiple allergies. I will continue antibiotic coverage for now and will de-escalate pending clinical improvement. Unknown source at this time. ? CT abdomen pelvis does show few dilated loops of small bowel with few air- fluid levels near 1 of prior anastomosis. Distal ileum appears decompressed. No high-grade obstruction however developing small bowel obstruction cannot be excluded. Patient still having nausea vomiting and asymptomatic. Will switch to n.p.o. status at this time and place NG tube to low intermittent wall suction. ? Consult general surgery. Dr. Benites will see patient in consultation ? Continue Dilaudid for pain -Continue IV fluids at normal saline at 150 cc/h. Monitor for hyperchloremic metabolic acidosis ? Lactic acidosis has resolved ? Closely monitor creatinine and check BMP twice daily ?Hold home insulin at this time. Continue sliding scale insulin low-dose intensity if needed. -Agree with assessment and plan of admit ting physician at this time.
[2024-05-25] MEDS: HYDROmorphone 1 mg/mL INJ 1 mL 0.5 MG IVP (20:48)
[2024-05-25] MEDS: pantoprazole 40 mg SDV IVP (20:57)
[2024-05-25] MEDS: heparin 5,000 unit/mL INJ 1 mL 5000 UNIT SUBCUT (20:57)
[2024-05-25] MEDS: aztreonam 1,000 MG in sodium chloride 0.9% (plus) 50 ML 100 MG IV (21:03)
[2024-05-25] MEDS: sennosides 8.6 mg Tablet 17.2 MG PO (21:07)
[2024-05-25 22:26] LABS: Glucose Point of Care 148 mg/dL (70-110)
[2024-05-25] MEDS: metroNIDAZOLE IV 500 MG/100 ML PREMIX 100 MG IV (23:05)
[2024-05-26] VITALS (12 sets, daily range): BP systolic 118–151; BP diastolic 78–91; PULSE 70–99; RESP 14–18; TEMP 36.6–37.2; O2SAT 93–99
[2024-05-26] MEDS: HYDROmorphone 1 mg/mL INJ 1 mL 0.5 MG IVP ×5 (01:11→21:04)
[2024-05-26] MEDS: dextrose 5%-sod chloride 0.9% 1,000 ML 75 ML IV ×2 (03:31→16:36)
[2024-05-26 04:54] LABS: Hematocrit 36.1 % (36-47); Mean Corpuscular Hemoglobin 30.3 pg (27-33); Mean Corpuscular Volume 91.9 fl (85-98); Mean Platelet Volume 8.5 fL (7.4-10.4); Platelet Count 244 10^3/cmm (157-399); Red Blood Count 3.93 10^6/uL (3.85-5.65); Red Cell Distribution Width 13.2 % (12.1-15.1); White Blood Count 7.98 10^3/uL (3.29-11.43)
[2024-05-26 05:23] LABS: Alanine Aminotransferase 18 U/L (0-33); Albumin Level 3.5 g/dL (3.5-5.2); Alkaline Phosphatase 46 U/L (35-105); Anion Gap 15.7 (5-19); Aspartate Amino Transferase 18 U/L (0-32); Blood Urea Nitrogen 52 mg/dL (8-23); Calcium 8.4 mg/dL (8.5-10.5); Carbon Dioxide 19 mmol/L (22-29); Chloride 108 mmol/L (98-107); Creatinine Clr Calc Pharmacy 31.4266; Globulin 2.5 g/dL (1.3-4.6); Glomerular Filtration Rate 37.9 mL/min (90-130); Glucose 130 mg/dL (65-115); Magnesium 2.2 mg/dL (1.7-2.3); Osmolality Calculated 304 mOsm/kg (285-295); Potassium 3.7 mmol/L (3.5-5.1); Sodium 139 mmol/L (136-145); Total Bilirubin 0.5 mg/dL (0.15-1.2)
[2024-05-26 05:24] LABS: Absolute Segmented Neutrophil 4.4 10/cmm (1.6-7.1); Eosinophils 0 %; Lymphocytes 43 %; Monocytes Absolute 0.2 10^3/cmm (0.1-0.6); Segmented Neutrophils 55 %; Total Cells Counted 100 (0-100)
[2024-05-26 05:25] LABS: Platelet Estimate Normal (Normal)
[2024-05-26] MEDS: metroNIDAZOLE IV 500 MG/100 ML PREMIX 100 MG IV ×2 (06:04→13:11)
[2024-05-26 06:11] LABS: Glucose Point of Care 132 mg/dL (70-110)
[2024-05-26] MEDS: pantoprazole 40 mg SDV IVP ×2 (08:36→21:06)
[2024-05-26] MEDS: aztreonam 1,000 MG in sodium chloride 0.9% (plus) 50 ML 50 MG IV (08:36)
[2024-05-26] MEDS: heparin 5,000 unit/mL INJ 1 mL 5000 UNIT SUBCUT ×2 (08:36→21:04)
--- NOTE | 2024-05-26 09:09 | PC.CHAP ---
Pastoral Care Encounter/Spiritual Assessment Type of Contact [] Declined ferry terminal agent visit [] Patient/Family/Request visit [] Outpatient visit [] Follow-up visit [] Physician referral [] Code/Alert [x] Routine visit [] Staff referral [] Actively dying [] Patient sleeping [] Family support [] [] Out of room [] Palliative care [] [] Receiving care in room [] Pre-surgical visit [] Trauma [] Long length of stay [] ICU visit [] Other: Relational/Emotional Strength [x] Patient feels connected with others/family/visitors/staff [] Distress [] Loneliness/isolation [] Abandonment Spirituality of Patient [x] Person of Ale [] Attends Mandaeism of their Ale [x] Believes in Prayer [] Reads Bible or Latter Day materials [] There are Spiritual issues to be addressed Fish Rod Maker Interventions [x] Prayer [x] Active listening [] Non-anxious presence [x] Spiritual/emotional support [] Crisis/trauma care [] Spiritual counseling [] Bereavement support [] Provided bereavement packet [] Provided Bible/devotional materials [] Provided toy/stuffed animal, coloring book to patient or family member [] Provided Communion [] Anointing/[place] [] Salvation [x] Completed spiritual assessment [] Other: Impact on Illness or Injury [] Angry [] Fearful [] Anxious [] Often cries [] Exhaustion [] Unable to work [] Unable to attend jainism [] Unable to walk/stand [] Unable to read [] Unable to drive [] Unable to eat/drink [] Unable to sleep [] Unable to be with family [] Patient intubated [] Other: Summary Time spent with patient 5 min
--- NOTE | 2024-05-26 11:50 | XRR_ITS ---
PROCEDURE INFORMATION: Exam: XR Abdomen Exam date and time: 05/26/2024 12:02 PM Age: 63 years old Clinical indication: Condition or disease; Intestinal condition; Obstruction; Additional info: Bowel obstruction f/u TECHNIQUE: Imaging protocol: Radiologic exam of the abdomen. Views: Frontal supine view of the abdomen. 1 View. COMPARISON: CT abdomen pelvis con [id number] 05/25/2024 9:58 AM FINDINGS: Gastrointestinal tract: The bowel-gas pattern is not obstructed. Patient has only a moderate stool burden. There are anastomotic reginaldo in the right pelvis and surgical clips in the abdomen and upper pelvis. Bones/joints: Patient has undergone vertebroplasty at T12. XR/XR KUB portable [id number] IMPRESSION: 1. Bowel-gas pattern does not appear obstructed 2. Prior surgery
--- NOTE | 2024-05-26 13:12 | PM.PN ---
Subjective Subjective: Seen this morning. Patient is passing gas. Has not had a bowel movement yet. Creatinine improving to 1.4. Urine output 1150 overnight. NG tube could not be placed by nursing staff as they met resistance. Surgeon has been notified. Dr. Benites will evaluate patient. KUB ordered for today. Vitals/I&O/Wt Last Vital Signs Temp 97.8 F 05/26/24 12:00 Pulse 82 05/26/24 12:00 Resp 15 05/26/24 12:00 BP 127/82 05/26/24 12:00 Pulse Ox 93 05/26/24 12:00 O2 Del Method Room Air 05/26/24 12:00 05/25/24 05/26/24 05/26/24 22:59 06:59 14:59 Intake Total 50 / 1050 1100 / 2150 150 / 150 Output Total 300 / 300 250 / 550 600 / 600 Balance -250 / 750 850 / 1600 -450 / -450 Weight last 48 hrs Weight 50.893 kg Weight 48.625 kg Weight 45.359 kg Physical Exam Const: GENERAL APPEARANCE: cooperative, well kempt, ill appearing and frail appearing; not comfortable ORIENTATION/CONSCIOUSNESS: Yes awake, Yes oriented to person, Yes oriented to place and Yes oriented to time HENMT: COMMON NORMALS: normocephalic, atraumatic, external ears normal and Normal external nose present HEAD & SCALP: normocephalic and atraumatic NOSE: Normal external nose present EXTERNAL EAR: Yes external ears normal MOUTH: Normal oral and palatal mucosa present THROAT: posterior oropharynx normal Eye: OTHER: PERRL, EOMI, normal conjunctiva bilaterally Neck/C-Spine: COMMON NORMALS: Thyroid normal GENERAL: Yes normal visual inspection and Yes trachea midline THYROID: Thyroid normal CAROTIDS: No bruit CERVICAL SPINE: Yes cervical ROM normal Lymph: OTHER: No cervical or supraclavicular LAD. Resp: OTHER: CTAB with no wheezes, rales, or rhonchi. Cardio: OTHER: RRR, no murmurs, rubs, gallops or clicks. GI: OTHER: BS positive but hypoactive, nontender, no rebound tenderness, abdomen is soft. Extremity: GENERAL: No clubbing, No cyanosis and No edema Neuro: SENSORIUM/ORIENTATION: Yes oriented to person, Yes oriented to place and Yes oriented to time CRANIAL NERVES: Yes CN normal except as noted SPEECH: speech normal SENSORY EXAM: No sensory level loss detected MOTOR EXAM: 5/5 motor strength present throughout and Normal motor muscle tone present throughout Psych: COMMON NORMALS: Normal thought process present and speech normal APPEARANCE: Yes grossly normal and Yes well kempt ATTITUDE: Yes calm and Yes engaged ACTIVITY/MOTOR BEHAVIOR: Yes appropriate eye contact SPEECH: Yes normal speech MOOD & AFFECT: Yes tearful THOUGHT PROCESS: Normal thought process present THOUGHT CONTENT: Yes Normal thought content present Skin: COMMON NORMALS: no rashes or lesions noted GENERAL SKIN EXAM: no rashes or lesions noted Data 05/26/24 04:47 05/26/24 04:47 Micro: Microbiology 05/25/24 09:26 Blood Culture - Preliminary Blood NEGATIVE TO DATE 05/25/24 09:27 Blood Culture - Preliminary Blood NEGATIVE TO DATE A&P Assessment and plan (1) SIRS (systemic inflammatory response syndrome): (2) Intractable nausea and vomiting: (3) TALIA (acute kidney injury): Plan Yessi Schulte is a 63 year old female w/ a Crohn's Disease in remission s/p multiple bowel resections w/ subsequent hx of SBOs, HTN, non-IDDM2, CAD, & [place] in 09/2019, who presents to [facility] on the late night of 05/25/2024 w/ complains of n/v x 3 days. In the ED, she was tachycardic and tachypneic. SHe was hyponatremic to 128 w/ K+ of 5.8 and Cr of 4.8. Her COVID, Influenza A&B, and RSV were negative. An abdominal x-ray was done that showed no acute findings. She was given 1L NS and admitted. #SIRS: Unclear source #Intractable N/V - Likely due to gastroenteritis versus her renal failure vs SBO - Zofran q6h prn - Also ordered a dose of Phenergan 25 mg IM x 1 given her infiltrated IV. #TALIA -Ordered 200 cc/h x 10 hours, but patient's ultrasound-guided IV placed in the ED infiltrated, so patient has not received any IVF yet. Nurses are working on getting new IV. #Concern for SBO - CT abd/pelvis w/o contrast ordered per discussion w/ the Radiologist. #CAD, hx of [place] #HTN #HLD -Remain n.p.o. at this time. #non-IDDM2: q4h BG checks ordered with hypoglycemia protocol. Will wait to see what her morning labs show before ordering sliding scale insulin. DVT ppx:Heparin sub q GI ppx: Pantoprazole. #Severe TALIA with creatinine up to 4.0. #History of multiple bowel resections with subsequent history of small bowel obstructions #Hypertension #Insulin-dependent diabetes mellitus #CAD status post [place] 2019 #History of Crohn's disease in remission #History of uterine rupture #High anion gap metabolic acidosis #Lactic acidosis on admission 05/25/2024 -Patient did meet SIRS criteria on admission and presented with intractable nausea vomiting. She does have evidence of bandemia on her initial labs. For empiric coverage I will add aztreonam and metronidazole. Antibiotics chosen secondary to multiple allergies. I will continue antibiotic coverage for now and will de-escalate pending clinical improvement. Unknown source at this time.? CT abdomen pelvis does show few dilated loops of small bowel with few air-fluid levels near 1 of prior anastomosis. Distal ileum appears decompressed. No high-grade obstruction however developing small bowel obstruction cannot be excluded. Patient still having nausea vomiting and asymptomatic. Will switch to n.p.o. status at this time and place NG tube to low intermittent wall suction. ? Consult general surgery. Dr. Benites will see patient in consultation ? Continue Dilaudid for pain -Continue IV fluids at normal saline at 150 cc/h. Monitor for hyperchloremic metabolic acidosis? Lactic acidosis has resolved ? Closely monitor creatinine and check BMP twice daily ?Hold home insulin at this time. Continue sliding scale insulin low-dose intensity if needed. -Agree with assessment and plan of admitting physician at this time. 05/26/2024 -NG tube could not be placed. ? Continue aztreonam for and metronidazole. Still has a left shift on labs. ? Source of infection unknown at this time. ? Order KUB today for reevaluation ? Consulted neurosurgery. Awaiting consultation ? Lactic acid is normalized. ? Continue to monitor at this time. ? Started on clear liquid diet as per discretion of general surgery. Attestations Medical Necessity Statement*: Patient needs to remain hospitalized for greater than 2 midnights for her intractable nausea vomiting, acute renal failure, and SIRS. Diagnoses SIRS (systemic inflammatory response syndrome) R65.10 Intractable nausea and vomiting R11.2 TALIA (acute kidney injury) N17.9
--- NOTE | 2024-05-26 14:29 | P.CONIM_ITS ---
Providers/Reason For Consult 2 Consulting Physician/Specialty*: Dr. Jakob Benites, /General Surgery Reason for Consult*: Nausea vomiting diarrhea Attending Physician: Brigida Quinn MD Primary Care Provider: Frank Smith DO History of Present Illness History of Present Illness Yessi Schulte is a 63 year old female presenting the hospital with a 3-day history of nausea vomiting and diarrhea. She denies any hematochezia, melena and/or hematemesis. She reports feeling very dehydrated and had 1 syncopal episode but did not fall because her caught her. reports that he was similarly ill about a week ago. She has a history of Crohn's disease, status post bowel resections, but is currently in remission. A CT of the abdomen pelvis done on admission showed partial small bowel obstruction with decompressed distal ileum. A KUB done today was within normal limits. She reports that she is still passing flatus and having liquid stools Review of Systems 2 General: Reports: 10 or more systems reviewed and unremarkable except in HPI and below Medications/Allergies Home Medications Medication Instructions Recorded Confirmed Last Taken Type aspirin 81 mg tablet,delayed 81 mg PO DAILY #90 tabs 02/25/23 05/25/24 05/24/24 Rx release epinephrine 0.3 mg/0.3 mL 0.3 mg (0.3 mL) IM Q4H PRN 10/30/23 05/25/24 Unknown Rx injection, auto-injector (EpiPen anaphylaxis #2 ea 2-Redd) amlodipine 5 mg tablet 5 mg PO DAILY #90 tabs 02/11/24 05/25/24 05/24/24 Rx clonazepam 0.5 mg tablet 0.5 mg PO BID #60 tabs 03/31/24 05/25/24 05/24/24 Rx clopidogrel 75 mg tablet 75 mg PO DAILY #90 tabs 03/31/24 05/25/24 05/24/24 Rx ipratropium 0.5 mg-albuterol 3 mg 3 ml inhalation Q4H PRN wheezing 03/31/24 05/25/24 Unknown Rx (2.5 mg base)/3 mL nebulization #180 mL soln isosorbide mononitrate 60 mg 60 mg PO BID #180 tabs 03/31/24 05/25/24 05/24/24 Rx tablet,extended release 24 hr nitroglycerin 0.4 mg sublingual 0.4 mg sublingual Q5M PRN Chest 03/31/24 05/25/24 Unknown Rx tablet (Nitrostat) Pain #20 tabs albuterol sulfate 90 mcg/actuation 2 puff inhalation QID PRN 04/09/24 05/25/24 Unknown History aerosol inhaler Shortness Of Breath [id number] 1 cap PO TID #90 caps 04/09/24 05/25/24 05/24/24 Rx 3,000-9,500-15,000 unit capsule, delayed rel (Creon) docusate sodium 100 mg capsule 100 mg PO DAILY 04/19/24 05/25/24 05/24/24 History gabapentin 300 mg capsule 600 mg PO TID 04/19/24 05/25/24 05/24/24 History prazosin 2 mg capsule 2 mg PO BEDTIME 04/19/24 05/25/24 05/23/24 History pen needle, diabetic 32 gauge x #100 ea 05/21/24 05/25/24 Unknown Rx (TechLITE Pen Needle) atorvastatin 20 mg tablet 20 mg PO BEDTIME 05/25/24 05/25/24 05/23/24 History buspirone 5 mg tablet 5 mg PO BID 05/25/24 05/25/24 05/24/24 History hydroxyzine HCl 50 mg tablet 50 mg PO TID 05/25/24 05/25/24 05/24/24 History insulin glargine 100 unit/mL (3 10 unit SUBCUT QPM 05/25/24 05/25/24 05/23/24 History mL) subcutaneous pen (Lantus Solostar U-100 Insulin) meloxicam 7.5 mg tablet 7.5 mg PO BID 05/25/24 05/25/24 05/24/24 History metoprolol tartrate 25 mg tablet 12.5 mg PO BID 05/25/24 05/25/24 05/24/24 History pantoprazole 20 mg tablet,delayed 40 mg PO DAILY 05/25/24 05/25/24 05/24/24 History release quetiapine 100 mg tablet 100 mg PO BEDTIME 05/25/24 05/25/24 05/23/24 History venlafaxine 75 mg capsule,extended 75 mg PO QAM 05/25/24 05/25/24 05/24/24 History release 24 hr Allergies Allergy/AdvReac Type Severity Reaction Status Date / Time ciprofloxacin [From Cipro] Allergy Severe Unresponsiv Verified 05/04/24 11:12 e codeine Allergy Severe ALGY-Anaphy Verified 05/04/24 11:12 laxis lidocaine Allergy Severe ALGY-Swell Verified 05/04/24 11:12 Lip/Tongue/Throat morphine Allergy Severe ALGY-Anaphy Verified 05/04/24 11:12 laxis Penicillins Allergy Severe ALGY-Swell Verified 05/04/24 11:12 Lip/Tongue/Throat procaine [From Novocain] Allergy Severe ALGY-Swell Verified 05/04/24 11:12 Lip/Tongue/Throat prochlorperazine Allergy Severe ALGY-Swell Verified 05/04/24 11:12 [From Compazine] Lip/Tongue/Throat adhesive tape Allergy Unknown Unknown Verified 05/04/24 11:12 Sulfa (Sulfonamide Allergy Unknown Unknown Verified 05/04/24 11:12 Antibiotics) methocarbamol Allergy ALGY-Redness Verified 05/04/24 11:12 of Skin Current Medications Generic Name Dose Route Start Last Admin Trade Name Freq PRN Reason Stop Dose Admin Docusate Sodium 100 mg 05/25/24 09:00 05/26/24 08:36 Docusate Sodium 100 Mg Capsule PO Not Given BID ISABELLA Heparin Sodium (Porcine) 5,000 unit 05/25/24 08:00 05/26/24 08:36 Heparin 5,000 Unit/Ml Inj 1 Ml SUBCUT 5,000 unit Q12H ISABELLA Administration Hydromorphone HCl 0.5 mg 05/25/24 19:20 05/26/24 11:02 Hydromorphone 1 Mg/Ml Inj 1 Ml IVP 0.5 mg Q4H PRN Administration MODERATE PAIN Aztreonam 1,000 mg/ Sodium 50 mls @ 100 mls/hr 05/25/24 20:00 05/26/24 09:37 Chloride IV Infused Q12H [facility] Infusion Protocol Metronidazole 500 mg in 100 mls @ 100 mls/hr 05/25/24 20:00 05/26/24 14:20 Flagyl Iv IV Infused Q8H [facility] Infusion Protocol Dextrose/Sodium Chloride 1,000 mls @ 75 mls/hr 05/25/24 23:00 05/26/24 03:31 Dextrose 5%-Sod Chloride 0.9% IV 75 mls/hr .[id number] ISABELLA Administration Ondansetron HCl 4 mg 05/25/24 07:57 05/25/24 16:36 Ondansetron 2 Mg/Ml Sdv 2 Ml IVP 4 mg Q8H PRN Administration vomiting, or N/V if npo Pantoprazole Sodium 40 mg 05/25/24 09:00 05/26/24 08:36 Pantoprazole 40 Mg Sdv IVP 40 mg Q12H ISABELLA Administration Promethazine HCl 25 mg 05/25/24 08:19 05/25/24 08:50 Promethazine 25 Mg/Ml Sdv 1 Ml IM 25 mg Q6H PRN Administration NAUSEA Senna 17.2 mg 05/25/24 21:00 05/25/24 21:07 Sennosides 8.6 Mg Tablet PO 17.2 mg BEDTIME ISABELLA Administration PFSH Acute 2 PFSH: Medical History Psychiatric care UTI (urinary tract infection) Claudication Atherosclerosis of coronary artery Type 2 diabetes mellitus without complication, with no history of insulin use Shortness of breath Cough Generalized body aches Fatigue Essential hypertension Neutrophilic leukocytosis Pancreatitis Myocardial infarction acute 09/2019 SBO (small bowel obstruction) HTN (hypertension) with goal to be determined Depression Surgical History History of 3 sections S/P DONNA-BSO History of incisional hernia repair Status post colonoscopy S/P cardiac cath History of appendectomy H/O exploratory laparotomy Multiple bowel resections S/P cholecystectomy Family History Mother Cancer, Onset Age: 60 Double mastectomy Sister Cancer, Onset Age: 53 double mastectomy Sister Cancer, Onset Age: 52 partial mastectomy Social History Smoking and tobacco/nicotine status: current every day tobacco/nicotine user cigarettes [ Other cigarette details: On and off ] Alcohol intake: current Alcohol intake frequency: holidays/special occasions only Substance/Drug Use: never Female Reproductive History: Spontaneous abortions: No Vitals/I&O/Wt Last Vital Signs Temp 97.8 F 12/31/24 12:00 Pulse 82 05/26/24 12:00 Resp 15 05/26/24 12:00 BP 127/82 05/26/24 12:00 Pulse Ox 93 05/26/24 12:00 O2 Del Method Room Air 05/26/24 12:00 05/25/24 05/26/24 05/26/24 22:59 06:59 14:59 Intake Total 50 / 1050 1100 / 2150 250 / 250 Output Total 300 / 300 250 / 550 600 / 600 Balance -250 / 750 850 / 1600 -350 / -350 Weight last 48 hrs Weight 112 lb 3.2 oz Weight 107 lb 3.2 oz Weight 100 lb Physical Exam 2 Narrative: General : Patient is well developed , no acute distress, oriented x3 Head : Normal cephalic, a-traumatic. Ears : Pinnae and external canal are normal. Hearing is normal. Eyes : PERRLA, Sclera and injection are normal. No conjunctival discharge. Nose : Mucous membranes are without erythema. Throat : buccal mucosa is normal, gums are without significant recession or hypertrophy. Lungs : Equal chest rise bilaterally, no use of accessory muscles, trachea is midline. Cor : Rate and rhythm are normal. Abdomen : Soft, ND, mild diffuse tenderness, no g/r/m Extremities : No edema, no cyanosis or clubbing, dorsalis pedis pulses are present bilaterally, non-tender to palpation of calves. Upper extremities are normal bilaterally. Back : non-tender to palpation, no CVA tenderness. Neuro : CN II - XII intact, Upper and lower extremities have equal and full strength Data 05/26/24 04:47 05/26/24 04:47 Micro: Microbiology 05/25/24 09:26 Blood Culture - Preliminary Blood NEGATIVE TO DATE 05/25/24 09:27 Blood Culture - Preliminary Blood NEGATIVE TO DATE A&P Assessment and plan (1) Gastroenteritis: (2) Intractable nausea and vomiting: (3) Diarrhea: (4) Crohn's disease: Qualifiers: Gastrointestinal tract location: unspecified location Digestive disease complication type: unspecified complication Qualified Code(s): K50.919 - Crohn's disease, unspecified, with unspecified complications Plan Patient does not have a Crohn's flare Gastroenteritis is typically self-limiting. She has recovered well after IV fluid hydration Full liquid diet advance as tolerated to soft Surgically stable for discharge once tolerating soft diet No acute surgical intervention Antibiotics and medical management per hospitalist Coding Level of Care Code 47361 Diagnoses Gastroenteritis K52.9 Intractable nausea and vomiting R11.2 Diarrhea R19.7 Crohn's disease with complication, unspecified gastrointestinal tract location K50.919 Gastrointestinal tract location: unspecified location Digestive disease complication type: unspecified complication
[2024-05-26] MEDS: docusate sodium 100 mg Capsule PO (16:35)
[2024-05-26] MEDS: sennosides 8.6 mg Tablet 17.2 MG PO (21:02)
[2024-05-27] VITALS (8 sets, daily range): BP systolic 139–160; BP diastolic 81–88; PULSE 71–81; RESP 15–16; TEMP 36.8–37.2; O2SAT 92–95
[2024-05-27] MEDS: aztreonam 1,000 MG in sodium chloride 0.9% (plus) 50 ML 100 MG IV (00:07)
--- NOTE | 2024-05-27 00:21 | PC.NURSE ---
IV pain admin IV Dilaudid was administered to pt at 2103 with some evening meds, before IV access was lost and bottle was placed in sharps container, manual barcode entry used for MAR administration.
[2024-05-27] MEDS: HYDROmorphone 1 mg/mL INJ 1 mL 0.5 MG IVP ×3 (01:06→09:50)
[2024-05-27] MEDS: metroNIDAZOLE IV 500 MG/100 ML PREMIX 100 MG IV ×2 (01:07→08:19)
[2024-05-27 06:21] LABS: Hematocrit 35.6 % (36-47); Mean Corpuscular Hemoglobin 29.8 pg (27-33); Mean Corpuscular Volume 93.2 fl (85-98); Mean Platelet Volume 8.4 fL (7.4-10.4); Platelet Count 227 10^3/cmm (157-399); Red Blood Count 3.82 10^6/uL (3.85-5.65); Red Cell Distribution Width 13.2 % (12.1-15.1); White Blood Count 6.93 10^3/uL (3.29-11.43)
[2024-05-27 06:57] LABS: Absolute Eosinophils 0.1 10^3/cmm (0.0-0.7); Eosinophils 1 %; Lymphocytes 32 %; Lymphocytes Absolute 2.3 10^3/cmm (1.2-3.4); Monocytes Absolute 0.6 10^3/cmm (0.1-0.6); Platelet Estimate Normal (Normal); Segmented Neutrophils 58 %; Total Cells Counted 100 (0-100)
--- NOTE | 2024-05-27 07:47 | P.PN_ITS ---
Subjective 2 Subjective: Patient seen and examined. Tolerating soft diet without emesis. Positive formed bowel movement Vitals/I&O/Wt Last Vital Signs Temp 98.9 F 05/27/24 04:00 Pulse 81 05/27/24 05:52 Resp 16 05/27/24 05:06 BP 158/81 05/27/24 04:00 Pulse Ox 92 05/27/24 05:06 O2 Del Method Room Air 05/27/24 04:00 05/26/24 05/27/24 05/27/24 22:59 06:59 14:59 Intake Total 1331.25 / 1581.25 1218 / 2799.25 Output Total 900 / 1500 450 / 1950 Balance 431.25 / 81.25 768 / 849.25 Weight last 48 hrs Weight 117 lb Weight 112 lb 3.2 oz Physical Exam 2 Narrative: General: No acute distress, awake alert and oriented x 3 Abdomen: Soft, nondistended, mild tenderness over the epigastrium without rebound or guarding Data 05/27/24 05:48 05/26/24 04:47 Micro: Microbiology 05/25/24 09:26 Blood Culture - Preliminary Blood NEGATIVE TO DATE 05/25/24 09:27 Blood Culture - Preliminary Blood NEGATIVE TO DATE A&P Assessment and plan (1) Gastroenteritis: (2) Intractable nausea and vomiting: (3) Diarrhea: (4) Crohn's disease: Qualifiers: Gastrointestinal tract location: unspecified location Digestive disease complication type: unspecified complication Qualified Code(s): K50.919 - Crohn's disease, unspecified, with unspecified complications Plan Patient does not have a Crohn's flare Gastroenteritis is typically self-limiting. She has recovered well after IV fluid hydration Soft diet Surgically stable for discharge No acute surgical intervention Antibiotics and medical management per hospitalist Attestations 2 Medical Necessity Statement*: Per primary Coding Level of Care Code 50746 Diagnoses Gastroenteritis K52.9 Intractable nausea and vomiting R11.2 Diarrhea R19.7 Crohn's disease with complication, unspecified gastrointestinal tract location K50.919 Gastrointestinal tract location: unspecified location Digestive disease complication type: unspecified complication
[2024-05-27 08:11] LABS: Alanine Aminotransferase 19 U/L (0-33); Albumin Level 3.1 g/dL (3.5-5.2); Alkaline Phosphatase 39 U/L (35-105); Blood Urea Nitrogen 16 mg/dL (8-23); Calcium 8.1 mg/dL (8.5-10.5); Carbon Dioxide 22 mmol/L (22-29); Chloride 111 mmol/L (98-107); Creatinine Clr Calc Pharmacy 89.5571; Globulin 2.1 g/dL (1.3-4.6); Glomerular Filtration Rate 124.2 mL/min (90-130); Glucose 141 mg/dL (65-115); Magnesium 1.7 mg/dL (1.7-2.3); Osmolality Calculated 300 mOsm/kg (285-295); Phosphorus 1.8 mg/dL (2.5-4.5); Sodium 143 mmol/L (136-145); Total Bilirubin 0.4 mg/dL (0.15-1.2); Total Protein 5.2 g/dL (6.6-8.7)
[2024-05-27 08:17] LABS: Anion Gap 13.5 (5-19); Aspartate Amino Transferase 22 U/L (0-32); Potassium 3.5 mmol/L (3.5-5.1)
[2024-05-27] MEDS: pantoprazole 40 mg SDV IVP (08:19)
[2024-05-27] MEDS: heparin 5,000 unit/mL INJ 1 mL 5000 UNIT SUBCUT (08:19)
[2024-05-27] MEDS: docusate sodium 100 mg Capsule PO (08:19)
[2024-05-27] MEDS: dextrose 5%-sod chloride 0.9% 1,000 ML 75 ML IV (09:37)
[2024-05-27] MEDS: phosphorus 250 mg Tablet PO (09:37)
--- NOTE | 2024-05-27 09:47 | PM.PN ---
Vitals/I&O/Wt Last Vital Signs Temp 98.6 F 05/27/24 08:00 Pulse 75 05/27/24 08:00 Resp 16 05/27/24 08:00 BP 140/82 05/27/24 08:00 Pulse Ox 92 05/27/24 08:00 O2 Del Method Room Air 05/27/24 08:00 05/26/24 05/27/24 05/27/24 22:59 06:59 14:59 Intake Total 1331.25 / 1581.25 1218 / 2799.25 337.5 / 337.5 Output Total 900 / 1500 450 / 1950 Balance 431.25 / 81.25 768 / 849.25 337.5 / 337.5 Weight last 48 hrs Weight 53.07 kg Weight 50.893 kg Data 05/27/24 05:48 05/27/24 07:28 Micro: Microbiology 05/25/24 09:26 Blood Culture - Preliminary Blood NEGATIVE TO DATE 05/25/24 09:27 Blood Culture - Preliminary Blood NEGATIVE TO DATE Coding Level of Care Code Acute Code for Chg Darnell
--- NOTE | 2024-05-27 12:30 | PM.DCS ---
Discharge Providers Date of Admission: 05/25/24 00:11 Date of Discharge: May 27, 2024 Attending Provider at Admission: Anamaria Patterson MD Attending Provider at Discharge: Brigida Quinn MD Primary Care Provider: Frank Smith DO Diagnoses at Discharge Discharge Diagnosis (1) Gastroenteritis: Status: Acute (2) Intractable nausea and vomiting: Status: Resolved (3) Diarrhea: Status: Resolved (4) Crohn's disease: Status: Acute Qualifiers: Digestive disease complication type: unspecified complication Gastrointestinal tract location: unspecified location Qualified Code(s): K50.919 - Crohn's disease, unspecified, with unspecified complications Reason for Visit Reason for Visit: vommiting Hospital Course Hospital Course Patient with history of chronic disease and multiple bowel resections presented to the hospital for gastroenteritis possible partial small bowel obstruction. She also had severe TALIA and presented with intractable nausea vomiting. NG tube was ordered however nurses were unable to get that placed secondary to resistance. Before general surgery could come in and placed the NG tube patient symptoms resolved and she started to pass gas and had liquid bowel movements. Follow-up KUB did not show a bowel obstruction. She also had a left shift and bandemia of unknown source. Blood cultures negative to date. She was kept on antibiotics during hospitalization and sent home on Flagyl. She is to follow-up with primary care at discharge. Physical Exam Const: GENERAL APPEARANCE: cooperative, comfortable and well kempt ORIENTATION/CONSCIOUSNESS: Yes awake, Yes oriented to person, Yes oriented to place and Yes oriented to time HENMT: COMMON NORMALS: normocephalic, atraumatic, external ears normal and Normal external nose present HEAD & SCALP: normocephalic and atraumatic NOSE: Normal external nose present EXTERNAL EAR: Yes external ears normal MOUTH: Normal oral and palatal mucosa present THROAT: posterior oropharynx normal Eye: OTHER: PERRL, EOMI, normal conjunctiva bilaterally Neck/C-Spine: COMMON NORMALS: Thyroid normal GENERAL: Yes normal visual inspection and Yes trachea midline THYROID: Thyroid normal CAROTIDS: No bruit CERVICAL SPINE: Yes cervical ROM normal Lymph: OTHER: No cervical or supraclavicular LAD. Resp: OTHER: CTAB with no wheezes, rales, or rhonchi. Cardio: OTHER: RRR, no murmurs, rubs, gallops or clicks. GI: OTHER: BS positive +, nontender, no rebound tenderness, abdomen is soft. Extremity: GENERAL: No clubbing, No cyanosis and No edema Neuro: SENSORIUM/ORIENTATION: Yes oriented to person, Yes oriented to place and Yes oriented to time CRANIAL NERVES: Yes CN normal except as noted SPEECH: speech normal SENSORY EXAM: No sensory level loss detected MOTOR EXAM: 5/5 motor strength present throughout and Normal motor muscle tone present throughout Psych: COMMON NORMALS: Normal thought process present and speech normal APPEARANCE: Yes grossly normal and Yes well kempt ATTITUDE: Yes calm and Yes engaged ACTIVITY/MOTOR BEHAVIOR: Yes appropriate eye contact SPEECH: Yes normal speech MOOD & AFFECT: Yes tearful THOUGHT PROCESS: Normal thought process present THOUGHT CONTENT: Yes Normal thought content present Skin: COMMON NORMALS: no rashes or lesions noted GENERAL SKIN EXAM: no rashes or lesions noted Discharge Data Studies Completed and Pending Completed Studies During Hospitalization Category Date Time Status CT abdomen pelvis wo con [id number] Routine Cat Scan 05/25/24 08:23 Completed XR KUB portable [id number] Stat Exams 05/26/24 11:50 Completed XR abdomen 1V* [id number] Stat Exams 05/24/24 23:03 Completed Pending at discharge Category Date Time Status BMP [Basic Metabolic Panel] AM LABS Lab 05/28/24 04:00 Ordered Blood Culture Stat Lab 05/25/24 09:26 Results C.Diff PCR (Lab) Routine Lab 05/26/24 16:08 Uncollected CBC Manual Dif [Complete Blood Count w/Man Dif] AM LABS Lab 05/28/24 04:00 Ordered LFT [Liver Panel] AM LABS Lab 05/28/24 04:00 Ordered Magnesium AM LABS Lab 05/28/24 04:00 Ordered PHOS [Phosphorus] AM LABS Lab 05/28/24 04:00 Ordered Sputum Culture and Gram Stain Stat Lab 05/25/24 20:04 Uncollected Radiology Impressions Abdomen X-Ray 05/24/24 23:03 IMPRESSION: No acute findings. Abdomen/Pelvis CT 05/25/24 08:23 IMPRESSION: 1. A few dilated loops of of small bowel in the lower abdomen and pelvis with a few air-fluid levels near one of the prior anastomosis. Distal ileum appears decompressed. No high-grade obstruction but recommend interval follow-up to exclude developing small bowel obstruction in this area if persistent symptoms. 2. Colon is decompressed. Normal sigmoid colon. 3. No free fluid in the abdomen or pelvis. 4. No other significant interval changes. 5. Prior postoperative changes cholecystectomy and appendectomy. Prior hysterectomy. Prior partial colectomy with evidence of small bowel surgery as well. KUB X-Ray 05/26/24 11:50 IMPRESSION: 1. Bowel-gas pattern does not appear obstructed 2. Prior surgery Laboratory Results WBC 6.93 10^3/uL (3.29-11.43) 05/27/24 05:48 RBC 3.82 10^6/uL (3.85-5.65) L 05/27/24 05:48 Hgb 11.40 g/dL (11.27-16.99) 05/27/24 05:48 Hct 35.6 % (36-47) L 05/27/24 05:48 MCV 93.2 fl (85-98) 05/27/24 05:48 MCH 29.8 pg (27-33) 05/27/24 05:48 MCHC 32.0 g/dL (30-55) 05/27/24 05:48 RDW 13.2 % (12.1-15.1) 05/27/24 05:48 Plt Count 227 10^3/cmm (157-399) 05/27/24 05:48 MPV 8.4 fL (7.4-10.4) 05/27/24 05:48 Neut % (Auto) 73.2 % 05/24/24 23:25 Lymph % (Auto) 13.0 % 05/24/24 23:25 [place] % (Auto) 13.3 % 05/24/24 23:25 Eos % (Auto) 0.0 % 05/24/24 23:25 Baso % (Auto) 0.1 % 05/24/24 23:25 Neut # (Auto) 7.79 10^3/uL (1.8-7.7) H 05/24/24 23:25 Lymph # (Auto) 1.4 10^3/uL (0.8-4.8) 05/24/24 23:25 [place] # (Auto) 1.4 10^3/uL (0.2-0.9) H 05/24/24 23:25 Eos # (Auto) 0.0 10^3/uL (0.0-0.8) 05/24/24 23:25 Baso # (Auto) 0.0 10^3/uL (0.0-0.1) 05/24/24 23:25 Nucleated RBC % (auto) 0 % 05/24/24 23:25 Total Counted 100 (0-100) 05/27/24 05:48 Atypical Lymphs % 1.0 % (0-5) 05/27/24 05:48 Absolute Neutrophils 4.0 10^3/cmm (1.4-6.5) 05/27/24 05:48 Segmented Neutrophils 58 % 05/27/24 05:48 Band Neutrophils 0.0 % 05/27/24 05:48 Absolute Lymphocytes 2.3 10^3/cmm (1.2-3.4) 05/27/24 05:48 Lymphocytes (Manual) 32 % 05/27/24 05:48 Monocytes (Manual) 8.0 % 05/27/24 05:48 Absolute Monocytes 0.6 10^3/cmm (0.1-0.6) 05/27/24 05:48 Eosinophils (Manual) 1 % 05/27/24 05:48 Absolute Eosinophils 0.1 10^3/cmm (0.0-0.7) 05/27/24 05:48 Basophils (Manual) 0.0 % 05/27/24 05:48 Absolute Basophils 0.0 10^3/cmm (0.0-0.2) 05/27/24 05:48 Nucleated RBCs # 0.0 /100WBC 05/24/24 23:25 Smudge Cells Trace 05/25/24 08:06 Platelet Estimate Normal (Normal) 05/27/24 05:48 PT 14.30 SECONDS (12.1-14.9) 05/25/24 08:06 INR 1.08 (0.8-1.2) 05/25/24 08:06 APTT 23.3 SECONDS (23.9-36.7) L 05/25/24 08:06 Sodium 143 mmol/L (136-145) 05/27/24 07:28 Potassium 3.5 mmol/L (3.5-5.1) 05/27/24 07:28 Chloride 111 mmol/L (98-107) H 05/27/24 07:28 Carbon Dioxide 22 mmol/L (22-29) 05/27/24 07:28 Anion Gap 13.5 (5-19) 05/27/24 07:28 BUN 16 mg/dL (8-23) 05/27/24 07:28 Creatinine 0.5 mg/dL (0.5-0.9) 05/27/24 07:28 GFR Calculation 124.2 mL/min (90-130) 05/27/24 07:28 Glucose 141 mg/dL (65-115) H 05/27/24 07:28 POC Glucose 132 mg/dL (70-110) H 05/26/24 06:08 Calculated Osmolality 300 mOsm/kg (285-295) H 05/27/24 07:28 Lactic Acid 3.1 mmol/L (0.5-2.2) H 05/24/24 23:25 Lactic Acid (Sepsis) 1.3 mmol/L (0.5-2.2) 05/25/24 02:15 Calcium 8.1 mg/dL (8.5-10.5) L 05/27/24 07:28 Phosphorus 1.8 mg/dL (2.5-4.5) L 05/27/24 07:28 Magnesium 1.7 mg/dL (1.7-2.3) 05/27/24 07:28 Total Bilirubin 0.4 mg/dL (0.15-1.2) 05/27/24 07:28 Direct Bilirubin 0.20 mg/dL (0.00-0.30) 05/27/24 07:28 AST 22 U/L (0-32) 05/27/24 07:28 ALT 19 U/L (0-33) 05/27/24 07:28 Alkaline Phosphatase 39 U/L (35-105) 05/27/24 07:28 Total Protein 5.2 g/dL (6.6-8.7) L 05/27/24 07:28 Albumin 3.1 g/dL (3.5-5.2) L 05/27/24 07:28 Globulin 2.1 g/dL (1.3-4.6) 05/27/24 07:28 Lipase 16 U/L (13-60) 05/24/24 23:25 Urine Color Yellow (Yellow) 05/24/24 22:59 Urine Appearance Turbid (CLEAR) A 05/24/24 22:59 Urine pH 5.0 (5-7) 05/24/24 22:59 Ur Specific [place] 1.017 (1.005-1.030) 05/24/24 22:59 Urine Protein 2+ (Negative) A 05/24/24 22:59 Urine Glucose (UA) Negative (Normal) 05/24/24 22:59 Urine Ketones Trace (Negative) 05/24/24 22:59 Urine Blood Negative (Negative) 05/24/24 22:59 Urine Nitrate Negative (Negative) 05/24/24 22:59 Urine Bilirubin Negative (Negative) 05/24/24 22:59 Urine Urobilinogen 1.0 mg/dL (Negative) 05/24/24 22:59 Ur Leukocyte Esterase Negative (Negative) 05/24/24 22:59 Urine RBC 6-10 /hpf (0-2) 05/24/24 22:59 Urine WBC 0-5 /hpf (0-5) 05/24/24 22:59 Ur Squamous Epith Cells 11-20 /hpf (0-5) 05/24/24 22:59 Calcium Oxalate Crystal 0-4 /hpf H 05/24/24 22:59 Amorphous Sediment 2+ /hpf 05/24/24 22:59 Urine Bacteria None seen /hpf (NONE) 05/24/24 22:59 Hyaline Casts 64.52 /lpf 05/24/24 22:59 Coronavirus (PCR) Negative (Negative) 05/24/24 22:00 Influenza A (PCR) Negative (Negative) 05/24/24 22:00 Influenza Type B (PCR) Negative (Negative) 05/24/24 22:00 RSV (PCR) Negative (Negative) 05/24/24 22:00 Vitals Last Vital Signs Temp 98.6 F 05/27/24 08:00 Pulse 75 05/27/24 08:00 Resp 16 05/27/24 08:00 BP 140/82 05/27/24 08:00 Pulse Ox 92 05/27/24 08:00 O2 Del Method Room Air 05/27/24 08:00 Discharge Plan Discharge Patient Disposition: Home Condition: Stable Prescriptions: Continued aspirin 81 mg tablet,delayed release (DR/EC) 81 mg PO DAILY Qty: 90 3RF amlodipine 5 mg tablet 5 mg PO DAILY Qty: 90 3RF clopidogrel 75 mg tablet 75 mg PO DAILY Qty: 90 3RF Hold Instructions: Resume on 01/04/23. clonazepam 0.5 mg tablet 0.5 mg PO BID Qty: 60 5RF nitroglycerin [Nitrostat] 0.4 mg tablet, sublingual 0.4 mg SUBLINGUAL Q5M PRN (Reason: Chest Pain) Qty: 20 2RF Rx Instructions: do not exceed 3 doses per episode ipratropium-albuterol 0.5 mg-3 mg(2.5 mg base)/3 mL solution for nebulization 3 ml inhalation Q4H PRN (Reason: wheezing) Qty: 180 1RF epinephrine [EpiPen 2-Redd] 0.3 mg/0.3 mL auto-injector 0.3 mg IM Q4H PRN (Reason: anaphylaxis) Qty: 2 1RF Creon 3,000-9,500- 15,000 unit capsule,delayed release(DR/EC) 1 cap PO TID Qty: 90 5RF (DME) pen needle, diabetic [TechLITE Pen Needle] 32 gauge x 5/32 needle See Rx Instructions .ROUTE .COMPLEX Qty: 100 0RF Dose Instruction: USE DIRECTED Rx Instructions: USE DIRECTED albuterol sulfate 90 mcg/actuation HFA aerosol inhaler 2 puff inhalation QID PRN (Reason: Shortness Of Breath) docusate sodium 100 mg capsule 100 mg PO DAILY gabapentin 300 mg capsule 600 mg PO TID prazosin 2 mg capsule 2 mg PO BEDTIME atorvastatin 20 mg tablet 20 mg PO BEDTIME pantoprazole 20 mg tablet,delayed release (DR/EC) 40 mg PO DAILY metoprolol tartrate 25 mg tablet 12.5 mg PO BID insulin glargine [Lantus Solostar U-100 Insulin] 100 unit/mL (3 mL) insulin pen 10 unit SUBCUT QPM buspirone 5 mg tablet 5 mg PO BID venlafaxine 75 mg capsule,extended release 24hr 75 mg PO QAM hydroxyzine HCl 50 mg tablet 50 mg PO TID quetiapine 100 mg tablet 100 mg PO BEDTIME meloxicam 7.5 mg tablet 7.5 mg PO BID No Action isosorbide mononitrate 60 mg tablet extended release 24 hr 60 mg PO BID Qty: 180 0RF Discharge Orders: Discharge Order (Routine); Ordered 05/27/24 Ordered By: Brigida Cheyenne Referrals: Frank Smith, [Primary Care Provider] - 4-7 days (We have notified your physician's clinic of the need for a follow-up appointment to be scheduled. If you have not heard from them within the next 2 business days, please call them directly. ) Patient Instructions: Dehydration - Adult, Metronidazole (By mouth), Acute Kidney Injury (GEN), Opioid Safety Discharge Attestations Time Spent in Discharge Care*: less than 30 min Quality Metrics Clinical Quality Measures [ No reported AMI, CVA or VTE this stay] Coding Level of Care Code Acute Code for Chg Fwd Diagnoses Gastroenteritis K52.9 Intractable nausea and vomiting R11.2 Diarrhea R19.7 Crohn's disease with complication, unspecified gastrointestinal tract location K50.919 Digestive disease complication type: unspecified complication Gastrointestinal tract location: unspecified location
== END 2024-05-27 13:01 | disposition home or self-care (01) | DRG 683 ==
LOC: ER 05-25 00:18 → MEDSURG 05-25 00:46
PROVIDERS: Admitting Provider Internal Medicine; Emergency Provider Emergency Medicine; PCP Family Medicine; Visit Provider Internal Medicine
DX: N17.9 Acute kidney failure, unspecified (principal); E87.1 Hypo-osmolality and hyponatremia; K56.600 Partial intestinal obstruction, unspecified as to cause; E87.20 Acidosis, unspecified; R65.10 Systemic inflammatory response syndrome (SIRS) of non-infectious origin without acute organ dysfunction; K52.9 Noninfective gastroenteritis and colitis, unspecified; I25.10 Atherosclerotic heart disease of native coronary artery without angina pectoris; E11.9 Type 2 diabetes mellitus without complications; I10 Essential (primary) hypertension; E78.5 Hyperlipidemia, unspecified; F17.210 Nicotine dependence, cigarettes, uncomplicated; I25.2 Old myocardial infarction; Z11.52 Encounter for screening for COVID-19; Z79.82 Long term (current) use of aspirin; Z79.02 Long term (current) use of antithrombotics/antiplatelets; Z79.1 Long term (current) use of non-steroidal anti-inflammatories (NSAID); Z87.19 Personal history of other diseases of the digestive system; Z90.49 Acquired absence of other specified parts of digestive tract; Z90.710 Acquired absence of both cervix and uterus; Z90.722 Acquired absence of ovaries, bilateral; Z80.3 Family history of malignant neoplasm of breast
CPT/HCPCS: 36415; 36416; 74018; 74176; 80048; 80053; 80076; 81001; 82962; 83605; 83690; 83735; 84100; 85007; 85025; 85027; 85610; 85730; 87040; 87086; 87637; 96372; 96374; 96376; 99232; 99285; J1171; J1644; J2405; J2470; J2550; J3490; J7030; J7042

== ENCOUNTER → 2024-06-04 11:08 | Outpatient (BNVA) | payer MEDICARE, SELFPAY | PROVIDERS: PCP Family Medicine | DX: K52.9 Noninfective gastroenteritis and colitis, unspecified (principal); N39.0 Urinary tract infection, site not specified | CPT/HCPCS: 81000; 85025 ==

== ENCOUNTER 2024-06-12 10:11 | Outpatient (CLI) | payer MEDICARE, SELFPAY ==
[2024-06-12 10:27] LABS: Basophils % 0.5 %; Eosinophils # 0.2 10^3/uL (0.0-0.8); Eosinophils % 4.1 %; Hematocrit 35.3 % (36-47); Lymphocytes # 2.6 10^3/uL (0.8-4.8); Lymphocytes % 45.9 %; Mean Corpuscular HGB Conc 32.9 g/dL (30-55); Mean Corpuscular Hemoglobin 29.5 pg (27-33); Mean Corpuscular Volume 89.8 fl (85-98); Mean Platelet Volume 7.9 fL (7.4-10.4); Monocytes # 0.5 10^3/uL (0.2-0.9); Monocytes % 8.2 %; Neutrophils % 40.9 %; Nucleated Red Blood Cells % 0 %; Platelet Count 422 10^3/cmm (157-399); Red Blood Count 3.93 10^6/uL (3.85-5.65); Red Cell Distribution Width 14.3 % (12.1-15.1); White Blood Count 5.62 10^3/uL (3.29-11.43)
== END 2024-06-12 10:12 | disposition home or self-care (01) ==
LOC: LAB 10:13
PROVIDERS: PCP Family Medicine
DX: K52.9 Noninfective gastroenteritis and colitis, unspecified (principal)
CPT/HCPCS: 36415; 85025

== ENCOUNTER → 2024-07-28 11:48 | Outpatient (BNVA) | payer MEDICARE, SELFPAY | PROVIDERS: PCP Family Medicine; Visit Provider Family Medicine | DX: E78.2 Mixed hyperlipidemia (principal); I25.118 Atherosclerotic heart disease of native coronary artery with other forms of angina pectoris; I10 Essential (primary) hypertension; E11.9 Type 2 diabetes mellitus without complications; J06.9 Acute upper respiratory infection, unspecified | CPT/HCPCS: 80053; 80061; 82043; 83036 ==

== ENCOUNTER → 2024-08-19 13:11 | Outpatient (BNVA) | payer MEDICARE, SELFPAY | PROVIDERS: PCP Family Medicine; Visit Provider Internal Medicine | DX: I25.10 Atherosclerotic heart disease of native coronary artery without angina pectoris (principal); E78.2 Mixed hyperlipidemia; R07.9 Chest pain, unspecified; I25.118 Atherosclerotic heart disease of native coronary artery with other forms of angina pectoris | CPT/HCPCS: 99214 ==

== ENCOUNTER 2024-08-25 10:36 | Outpatient (CLI) | payer MEDICARE, SELFPAY ==
--- NOTE | 2024-08-25 10:45 | CT_ITS ---
WS: [id number] LDCT LUNG CANCER SCREENING HISTORY: smoker; 25 pk yr; screening TECHNIQUE: Axial imaging performed from the apices to 1 cm below the costophrenic angles. Coronal and sagittal reformats are submitted with axial MIP series. All CT scans at [facility] use at least one of these dose optimization techniques: automated exposure control; mA and/or kV adjustment per patient size (includes targeted exams where dose is matched to clinical indication); or iterative reconstruction. DLP: 42.80 mGy.cm DIvol: Mean CTDIvol: 0.80 (mGy) COMPARISON: 09/06/2022 CT angiogram Diagnostic quality: Satisfactory Lungs: Mild pulmonary hyperexpansion. 4 mm nodule abutting the mediastinum medial RIGHT upper lobe. Subpleural 2.5 mm nodule RIGHT middle lobe. 3 mm nodule LEFT lung base. No endobronchial lesions. No large mass or area of consolidation. Heart: Normal size heart with no pericardial effusion.. Scattered coronary artery calcifications. Other findings: Mild atherosclerosis aorta. Normal size pulmonary artery. No mediastinal or hilar adenopathy. Surgical clips near the GE junction. Likely from prior hernia repair. There is a low-attenuation mass along the anterior RIGHT hepatic lobe surface measuring 2.8 x 2.9 cm. This mass was noted on 05/25/2024 but increased in size. On prior imaging studies this mass was not present. Hounsfield units are low suggesting this may be a cyst or complex cyst. Due to the relative new appearance and increase in size since the most recent exam recommend further evaluation. No adrenal mass. Visualized pancreas is markedly atrophied. T12 vertebroplasty. CT/CT lung screening [id number] IMPRESSION: LUNG-RADS: 2S-Benign Appearance or Behavior with Significant Findings FOLLOW UP: 12 Month: Continue annual screening with LDCT OTHER FINDINGS (S MODIFIER): Low-attenuation mass along the anterior superior l . [place] has slightly increased in size since 05/25/2024. Mass was not presen t on older prior exams. This may be a cyst or complex cyst as the Hounsfield un its are low but recommend additional imaging evaluation. Liver ultrasound may b e adequate to assess if this is a simple cyst or not.
== END 2024-08-25 10:37 | disposition home or self-care (01) ==
LOC: RAD 10:38
PROVIDERS: PCP Family Medicine; Visit Provider Family Medicine
DX: Z12.2 Encounter for screening for malignant neoplasm of respiratory organs (principal); F17.218 Nicotine dependence, cigarettes, with other nicotine-induced disorders; R91.8 Other nonspecific abnormal finding of lung field; I25.10 Atherosclerotic heart disease of native coronary artery without angina pectoris; I70.0 Atherosclerosis of aorta; R93.89 Abnormal findings on diagnostic imaging of other specified body structures; K86.89 Other specified diseases of pancreas; Z98.890 Other specified postprocedural states
CPT/HCPCS: 71271

== ENCOUNTER 2024-09-02 10:23 | Outpatient (CLI) | payer MEDICARE, SELFPAY ==
--- NOTE | 2024-09-02 10:15 | US_ITS ---
WS: [id number] RIGHT UPPER QUADRANT ULTRASOUND HISTORY: evaluate liver mass seen on LDCT/CT COMPARISON: CT lung screening 08/25/2024 Liver: 14.8 cm in length. Liver is normal size. There is a cystic mass along the superior RIGHT lobe of the liver which corresponds to the abnormality noted on the noncontrast CT of 08/25/2024. Hepatic cyst measures 2.3 x 2.3 x 2.0 cm. No intrahepatic duct dilatation. Portal Vein: Normal hepatopetal flow with monophasic waveform. Gallbladder: Prior cholecystectomy. CBD: 0.3 cm Pancreas: Not visualized. Right kidney: 9.4 cm in length. Normal size and echogenicity. No hydronephrosis or mass. Aorta and IVC: Unremarkable abdominal aorta and IVC. No ascites. US/US abdomen limited [id number] IMPRESSION: 1. Hepatic mass noted on a prior CT corresponds to a simple cyst along the sup erior surface of the liver. No solid mass. 2. Prior cholecystectomy.
== END 2024-09-02 10:24 | disposition home or self-care (01) ==
PROVIDERS: PCP Family Medicine; Visit Provider Family Medicine
DX: R16.0 Hepatomegaly, not elsewhere classified (principal); Z90.49 Acquired absence of other specified parts of digestive tract
CPT/HCPCS: 76705

== ENCOUNTER 2024-10-06 18:13 | Emergency (ER) | payer MEDICARE, SELFPAY ==
[2024-10-06 18:13] VITALS: BP 95/61; PULSE 91; RESP 16; TEMP 36.7; O2SAT 93; BMI 22.8
--- NOTE | 2024-10-06 18:15 | XRR_ITS ---
PROCEDURE INFORMATION: Exam: XR Chest Exam date and time: 10/06/2024 6:43 PM Age: 64 years old Clinical indication: Pain; Chest pressure; Prior surgery; Surgery date: 6+ months; Surgery type: Cardiac stent; Additional info: Cp TECHNIQUE: Imaging protocol: Radiologic exam of the chest. Views: 1 view. COMPARISON: CT lung screening [id number] 08/25/2024 11:05 AM FINDINGS: Lungs: Unremarkable. No consolidation. Pleural spaces: Unremarkable. No pleural effusion. No pneumothorax. Heart/Mediastinum: Unremarkable. No cardiomegaly. Bones/joints: Unremarkable. XR/XR chest 1V portable [id number] IMPRESSION: No acute findings.
--- NOTE | 2024-10-06 18:16 | ECG_ITS ---
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: : 1960 Requested By: Evangelista Moses Order Number: [id number] Reading MD: JESSE FONTANA Measurements Intervals [place]t Rate: 94 P: 44 [place]: 157 QRS: 32 QRSD: 81 T: 32 QT: 364 QTc: 456 Interpretive Statements SINUS RHYTHM POSSIBLE LEFT ATRIAL ENLARGEMENT [-0.1mV P-WAVE IN V1/V2] LOW QRS VOLTAGE IN PRECORDIAL LEADS [QRS DEFLECTION < 1.0 mV IN CHEST LEADS] MODERATE T-WAVE ABNORMALITY, CONSIDER ANTERIOR ISCHEMIA [-0.1+ mV T-WAVE IN V3/V4] Compared to ECG 04/19/2024 07:04:58 Low QRS voltage now present Possible ischemia now present Junctional rhythm no longer present T-wave abnormality still present Electronically Signed On 10-08-2024 23:33:16 CDT by JESSE FONTANA [email or web address]
[2024-10-06 18:35] LABS: Basophils % 0.4 %; Eosinophils # 0.2 10^3/uL (0.0-0.8); Eosinophils % 2.3 %; Hematocrit 37.7 % (36-47); Lymphocytes # 2.7 10^3/uL (0.8-4.8); Lymphocytes % 34.2 %; Mean Corpuscular HGB Conc 32.9 g/dL (30-55); Mean Corpuscular Hemoglobin 29.5 pg (27-33); Mean Corpuscular Volume 89.8 fl (85-98); Mean Platelet Volume 8.5 fL (7.4-10.4); Monocytes # 0.6 10^3/uL (0.2-0.9); Monocytes % 7.8 %; Neutrophils # 4.33 10^3/uL (1.8-7.7); Nucleated Red Blood Cells % 0 %; Platelet Count 276 10^3/cmm (157-399); Red Cell Distribution Width 14.1 % (12.1-15.1); White Blood Count 7.86 10^3/uL (3.29-11.43)
[2024-10-06 18:59] LABS: Troponin(5th) Baseline < 6 ng/L (0-10)
[2024-10-06 19:01] LABS: Alanine Aminotransferase 15 U/L (0-33); Albumin Level 4.2 g/dL (3.5-5.2); Alkaline Phosphatase 68 U/L (35-105); Anion Gap 17.8 (5-19); Aspartate Amino Transferase 14 U/L (0-32); Blood Urea Nitrogen 10 mg/dL (8-23); Calcium 9.1 mg/dL (8.5-10.5); Carbon Dioxide 22 mmol/L (22-29); Chloride 105 mmol/L (98-107); Creatinine Clr Calc Pharmacy 57.7325; Globulin 2.4 g/dL (1.3-4.6); Glucose 139 mg/dL (65-115); Lipase 26 U/L (13-60); Osmolality Calculated 293 mOsm/kg (285-295); Potassium 3.8 mmol/L (3.5-5.1); Sodium 141 mmol/L (136-145); Total Bilirubin 0.3 mg/dL (0.15-1.2); Total Protein 6.6 g/dL (6.6-8.7)
--- NOTE | 2024-10-06 19:09 | W.ED.CHESTPA ---
HPI - Chest Pain General: Chief Complaint: Chest Pain Stated Complaint: chest pain Time Seen by Provider: 10/06/24 18:44 History of Present Illness: Patient is a 64-year-old female with history of 1 stent placed earlier this year seen for 3 days of chest pain which radiates to both arms and to the right groin. She describes the pain as sharp. She denies antecedent cough, congestion, fever, or other infectious symptoms. She states that the pain is worse with a deep breath and better at rest. She feels lightheaded when she stands up and also feels very weak such that she is less ambulatory than usual. She denies unilateral weakness. Related Data Home Medications ?Medication ?Instructions ?Recorded ?Confirmed albuterol sulfate 90 mcg/actuation 2 puff inhalation QID PRN 04/09/24 09/24/24 aerosol inhaler Shortness Of Breath gabapentin 300 mg capsule 600 mg PO TID 04/19/24 09/24/24 atorvastatin 20 mg tablet 20 mg PO BEDTIME 05/25/24 09/24/24 hydroxyzine HCl 50 mg tablet 50 mg PO TID 05/25/24 09/24/24 insulin glargine 100 unit/mL (3 10 unit SUBCUT QPM 05/25/24 09/24/24 mL) subcutaneous pen (Lantus Solostar U-100 Insulin) metoprolol tartrate 25 mg tablet 12.5 mg PO BID 05/25/24 09/24/24 pantoprazole 20 mg tablet,delayed 40 mg PO DAILY 05/25/24 09/24/24 release Previous Rx's ?Medication ?Instructions ?Recorded aspirin 81 mg tablet,delayed 81 mg PO DAILY #90 tabs 02/25/23 release epinephrine 0.3 mg/0.3 mL 0.3 mg (0.3 mL) IM Q4H PRN 10/30/23 injection, auto-injector (EpiPen anaphylaxis #2 ea 2-Redd) amlodipine 5 mg tablet 5 mg PO DAILY #90 tabs 02/11/24 clopidogrel 75 mg tablet 75 mg PO DAILY #90 tabs 03/31/24 ipratropium 0.5 mg-albuterol 3 mg 3 ml inhalation Q4H PRN wheezing 03/31/24 (2.5 mg base)/3 mL nebulization #180 mL soln nitroglycerin 0.4 mg sublingual 0.4 mg sublingual Q5M PRN Chest 03/31/24 tablet (Nitrostat) Pain #20 tabs plisvl-vnhcnvaw-edelnce 1 cap PO TID #90 caps 04/09/24 3,000-9,500-15,000 unit capsule, delayed rel (Creon) isosorbide mononitrate 60 mg 60 mg PO BID #180 tabs 06/04/24 tablet,extended release 24 hr buspirone 15 mg tablet 15 mg PO BID #60 tabs 06/12/24 prazosin 2 mg capsule 2 mg PO BEDTIME #30 caps 06/12/24 sertraline 100 mg tablet (Zoloft) 100 mg PO DAILY #30 tabs 06/12/24 trazodone 100 mg tablet 200 mg (2 x 100 mg) PO .HS PRN 06/12/24 insomnia #60 tabs 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 sensor (FreeStyle #2 ea 07/28/24 Selwyn 3 Sensor device) 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,coach cleaner,cont #1 ea 07/28/24 (FreeStyle Sel[place] 3 [place]) pen needle, diabetic 32 gauge x #100 ea 09/10/24 5/32 (TechLITE Pen Needle) Allergies Allergy/AdvReac Type Severity Reaction Status Date / Time ciprofloxacin (From Cipro) Allergy Severe Unresponsiv Verified 09/24/24 14:55 e codeine Allergy Severe ALGY-Anaphy Verified 09/24/24 14:55 laxis lidocaine Allergy Severe ALGY-Swell Verified 09/24/24 14:55 Lip/Tongue/Throat morphine Allergy Severe ALGY-Anaphy Verified 09/24/24 14:55 laxis Penicillins Allergy Severe ALGY-Swell Verified 09/24/24 14:55 Lip/Tongue/Throat procaine (From Novocain) Allergy Severe ALGY-Swell Verified 09/24/24 14:55 Lip/Tongue/Throat prochlorperazine (From Allergy Severe ALGY-Swell Verified 09/24/24 14:55 Compazine) Lip/Tongue/Throat adhesive tape Allergy Unknown Unknown Verified 09/24/24 14:55 Sulfa (Sulfonamide Allergy Unknown Unknown Verified 09/24/24 14:55 Antibiotics) methocarbamol Allergy ALGY-Redness Verified 09/24/24 14:55 of Skin [facility] ED PFSH: Medical History Head injury due to trauma Concussion Neck pain Liver mass on CT 05/19 and LDCT 08/18; US 09/18 shows it is simple cyst Mixed dyslipidemia COPD (chronic obstructive pulmonary disease) Polyneuropathy associated with underlying disease CAD (coronary artery disease) one stent Type 2 diabetes mellitus Screening for lung cancer LDCT ordered for 09/18 Nicotine dependence, cigarettes, with other nicotine-induced disorders Psychiatric care Claudication Essential hypertension Neutrophilic leukocytosis Myocardial infarction acute 09/2019 Depression sees psychiatry Surgical History Hx of bilateral cataract extraction History of bladder surgery [facility]. Home Hx of cervical spine surgery X 2; one done at [facility], one done at [facility]. Home History of 3 sections S/P DONNA-BSO done b/c of ruptured uterus; no cancer History of incisional hernia repair Status post colonoscopy 8.9.23 [facility]--tubular adenoma and other polyps--repeat 3 yrs S/P cardiac cath one stent History of appendectomy H/O exploratory laparotomy Multiple bowel resections--3 X--done b/c of adhesions/blockages S/P cholecystectomy Family History Mother Breast cancer Sister Breast cancer Sister Breast cancer Brother Brain cancer Brother CAD (coronary artery disease) Social History Smoking and tobacco/nicotine status: current every day tobacco/nicotine user cigarettes Packs smoked per day: 0.5 [ Other cigarette details: started age 13] Alcohol intake: current Alcohol intake frequency: holidays/special occasions only Substance/Drug Use: never Household members: spouse and other Details: daughter, son in law and 2 grandkids Marital status: Number of children: 2 Highest education level completed: Bachelor's Degree Current occupational status: retired Previous occupational history: [employer] Female Reproductive History: Spontaneous abortions: No Physical Exam Const: COMMON NORMALS: no acute distress, patient oriented x3 and alert HENMT: COMMON NORMALS: normocephalic and atraumatic HEAD & SCALP: normocephalic and atraumatic Eye: COMMON NORMALS: Equal, round and reactive pupils present, EOMs intact bilaterally and no scleral icterus PUPIL: Yes Equal, round and reactive pupils present Chest: OTHER: Chest pain is reproducible with palpation of the lower sternum and with deep inspiration. Resp: COMMON NORMALS: normal respiratory effort and No retractions Cardio: COMMON NORMALS: regular rate, regular rhythm and No murmurs present (Cardio) RATE: regular rate RHYTHM: regular rhythm GI: COMMON NORMALS: Normal to inspection, nondistended, normoactive bowel sounds present, Soft to palpation and non-tender PALPATION: Yes Soft to palpation Extremity: NARRATIVE EXTREMITY EXAM: No swelling of the legs. Mild tenderness with palpation of the right groin. No redness or warmth to imply DVT. Neuro: COMMON NORMALS: patient oriented x3 SENSORIUM/ORIENTATION: Yes alert OTHER: No unilateral weakness or numbness. Motor and sensory function are intact globally. Skin: COMMON NORMALS: no rashes or lesions noted GENERAL SKIN EXAM: no rashes or lesions noted Course Vital Signs: Vital signs: Vital Signs Temperature 98.1 F 10/06/24 18:13 Pulse Rate 63 10/06/24 22:00 Respiratory Rate 16 10/06/24 22:00 Blood Pressure 125/87 10/06/24 22:00 Pulse Oximetry 94 10/06/24 22:00 Oxygen Delivery Me thod Room Air 10/06/24 22:00 MDM - Chest Pain Medical Decision Making Patient remained hemodynamically stable 30 course. EKG, chest x-ray, labs are all noncontributory. Pain is better with treatment. I am uncertain of the etiology but do not suspect ACS, PE, pneumonia, or any other emergent process warranting further workup at this time. Patient shows good understanding and will be discharged in stable condition. Lab Data 10/06/24 18:29 10/06/24 18:29 Radiology Impressions Chest X-Ray 10/06/24 18:15 IMPRESSION: No acute findings. Laboratory Results WBC 7.86 10^3/uL (3.29-11.43) 10/06/24 18: RBC 4.20 10^6/uL (3.85-5.65) 10/06/24 18: Hgb 12.40 g/dL (11.27-16.99) 10/06/24 18: Hct 37.7 % (36-47) 10/06/24 MCV 89.8 fl (85-98) 10/06/24: MCH 29.5 pg (27-33) 10/06/24 MCHC 32.9 g/dL (30-55) 10/06/24 RDW 14.1 % (12.1-15.1) 10/06/24 Plt Count 276 10^3/cmm (157-399) 10/06/24 MPV 8.5 fL (7.4-10.4) 10/06/24 Neut % (Auto) 55.0 % 10/06/24: Lymph % (Auto) 34.2 % 10/06/24 Castro % (Auto) 7.8 % 10/06/24 Eos % (Auto) 2.3 % 10/06/24 Baso % (Auto) 0.4 % 10/06/24 Neut # (Auto) 4.33 10^3/uL (1.8-7.7) 10/06/24 Lymph # (Auto) 2.7 10^3/uL (0.8-4.8) 10/06/24: Castro # (Auto) 0.6 10^3/uL (0.2-0.9) 10/06/24 Eos # (Auto) 0.2 10^3/uL (0.0-0.8) 10/06/24 Baso # (Auto) 0.0 10^3/uL (0.0-0.1) 10/06/24 Nucleated RBC % (auto) 0 % 10/06/24 Nucleated RBCs # 0.0 /100WBC 10/06/24 PT 12.80 SECONDS (12.1-14.9) 10/06/24 INR 0.90 (0.8-1.2) 10/06/24 Sodium 141 mmol/L (136-145) 10/06/24 Potassium 3.8 mmol/L (3.5-5.1) 10/06/24 Chloride 105 mmol/L (98-107) 10/06/24: Carbon Dioxide 22 mmol/L (22-29) 10/06/24 18: Anion Gap 17.8 (5-19) 10/06/24 18: BUN 10 mg/dL (8-23) 10/06/24 18: Creatinine 0.7 mg/dL (0.5-0.9) 10/06/24 18: GFR Calculation 84.0 mL/min (90-130) L 10/06/24 18: Glucose 139 mg/dL (65-115) H 10/06/24 18: Calculated Osmolality 293 mOsm/kg (285-295) 10/06/24 18: Calcium 9.1 mg/dL (8.5-10.5) 10/06/24 Total Bilirubin 0.3 mg/dL (0.15-1.2) 10/06/24 18: AST 14 U/L (0-32) 10/06/24: ALT 15 U/L (0-33) 10/06/24 18: Alkaline Phosphatase 68 U/L (35-105) 10/06/24 18: Troponin T Baseline < 6 ng/L (0-10) 10/06/24 18: Troponin T 120 Minute < 6.0 ng/L (0-10) 10/06/24 20:04 Delta Troponin T 0 ABS# (0-10) 10/06/24 20:04 Total Protein 6.6 g/dL (6.6-8.7) 10/06/24 18: Albumin 4.2 g/dL (3.5-5.2) 10/06/24 18: Globulin 2.4 g/dL (1.3-4.6) 10/06/24 18: Lipase 26 U/L (13-60) 10/06/24 18: All radiology interpretation(s) finalized by discharge EKG Data EKG 1: Interpretation: Time?1816?normal sinus rhythm, rate of 94, no ST segment elevation or depression, no T wave inversions, intervals within normal limits. QTc = 416 Discharge Plan Discharge Patient Disposition: Home Clinical Impression: Chest pain, Body aches Condition: Stable Prescriptions: No Action aspirin 81 mg tablet,delayed release (DR/EC) 81 mg PO DAILY Qty: 90 3RF amlodipine 5 mg tablet 5 mg PO DAILY Qty: 90 3RF clopidogrel 75 mg tablet 75 mg PO DAILY Qty: 90 3RF nitroglycerin [Nitrostat] 0.4 mg tablet, sublingual 0.4 mg SUBLINGUAL Q5M PRN (Reason: Chest Pain) Qty: 20 2RF Rx Instructions: do not exceed 3 doses per episode ipratropium-albuterol 0.5 mg-3 mg(2.5 mg base)/3 mL solution for nebulization 3 ml inhalation Q4H PRN (Reason: wheezing) Qty: 180 1RF isosorbide mononitrate 60 mg tablet extended release 24 hr 60 mg PO BID Qty: 180 0RF sertraline [Zoloft] 100 mg tablet 100 mg PO DAILY Qty: 30 0RF Rx Instructions: Start after 1 month on 50 mg buspirone 15 mg tablet 15 mg PO BID Qty: 60 2RF prazosin 2 mg capsule 2 mg PO BEDTIME Qty: 30 2RF trazodone 100 mg tablet 200 mg PO .HS PRN (Reason: insomnia) Qty: 60 2RF (DME) FreeStyle Selwyn 3 [place] Misc See Rx Instructions .Route Qty: 1 0RF Rx Instructions: As directed (DME) FreeStyle Selwyn 3 Sensor Device See Rx Instructions .Route Qty: 2 5RF Rx Instructions: As directed epinephrine [EpiPen 2-Redd] 0.3 mg/0.3 mL auto-injector 0.3 mg IM Q4H PRN (Reason: anaphylaxis) Qty: 2 1RF Creon 3,000-9,500- 15,000 unit capsule,delayed release(DR/EC) 1 cap PO TID Qty: 90 5RF (DME) pen needle, diabetic [TechLITE Pen Needle] 32 gauge x 5/32 needle See Rx Instructions .ROUTE .COMPLEX Qty: 100 0RF Dose Instruction: USE DIRECTED Rx Instructions: USE DIRECTED albuterol sulfate 90 mcg/actuation HFA aerosol inhaler 2 puff inhalation QID PRN (Reason: Shortness Of Breath) gabapentin 300 mg capsule 600 mg PO TID atorvastatin 20 mg tablet 20 mg PO BEDTIME pantoprazole 20 mg tablet,delayed release (DR/EC) 40 mg PO DAILY metoprolol tartrate 25 mg tablet 12.5 mg PO BID insulin glargine [Lantus Solostar U-100 Insulin] 100 unit/mL (3 mL) insulin pen 10 unit SUBCUT QPM hydroxyzine HCl 50 mg tablet 50 mg PO TID Discharge Orders: Discharge ED (Routine); Ordered 10/06/24 Ordered By: Frank Sung Referrals: Tiny Graff MD [Primary Care Provider, [facility]] Discharge Diet: Advance as tolerated Discharge Activity: Increase activity as tolerated Patient Instructions: Chest Pain (ED) Print Language: Hebrew Coding Level of Care Code ED Sales Receptionist for Sonya Patrick
[2024-10-06 19:36] VITALS: BP 111/81; PULSE 77; O2SAT 92
[2024-10-06] MEDS: ketorolac 30 mg/mL INJ 15 MG IVP (19:37)
[2024-10-06] MEDS: LORazepam 1 MG/0.5 ML injection 0.5 MG IVP (19:37)
[2024-10-06] MEDS: sodium chloride 0.9% 1,000 ML 999 ML IV (19:37)
--- NOTE | 2024-10-06 20:16 | ECG_ITS ---
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1960 Requested By: Evangelista Moses Order Number: [id number] Reading MD: JESSE FONTANA Measurements Intervals [place] Rate: 79 P: 40 ND: 171 QRS: 33 QRSD: 84 T: 31 QT: 399 QTc: 458 Interpretive Statements SINUS RHYTHM LOW QRS VOLTAGE IN PRECORDIAL LEADS [QRS DEFLECTION < 1.0 mV IN CHEST LEADS] MODERATE T-WAVE ABNORMALITY, CONSIDER ANTERIOR ISCHEMIA [-0.1+ mV T-WAVE IN V3/V4] Compared to ECG 10/06/2024 18:17:36 No significant changes Electronically Signed On 10-08-2024 23:40:50 CDT by JESSE FONTANA [id number]
--- NOTE | 2024-10-06 20:32 | PC.NURSE ---
this nurse assumed pt care at 2034 from ERICA Cho
[2024-10-06 20:40] LABS: Troponin 5 2HR < 6.0 ng/L (0-10); Troponin 5 2HR Delta 0 ABS# (0-10)
[2024-10-06 21:34] VITALS: BP 125/87; PULSE 70; RESP 16; O2SAT 94
[2024-10-06 22:00] VITALS: BP 125/87; PULSE 63; RESP 16; O2SAT 94
[2024-10-06] MEDS: oxyCODONE-APAP 5-325 mg Tablet 1 TAB PO (22:57)
== END 2024-10-06 23:03 | disposition home or self-care (01) ==
PROVIDERS: Emergency Medicine; Emergency Provider Student in an Organized Health Care Education/Training Program; PCP Family Medicine
DX: R07.9 Chest pain, unspecified (principal); Z79.82 Long term (current) use of aspirin; Z79.02 Long term (current) use of antithrombotics/antiplatelets; Z79.4 Long term (current) use of insulin; F17.210 Nicotine dependence, cigarettes, uncomplicated; I25.10 Atherosclerotic heart disease of native coronary artery without angina pectoris; J44.9 Chronic obstructive pulmonary disease, unspecified; E11.9 Type 2 diabetes mellitus without complications; E78.2 Mixed hyperlipidemia
CPT/HCPCS: 36415; 71045; 80053; 83690; 84484; 85025; 85610; 93005; 96374; 96375; 99285; J1885; J2060; J7030; J9999

== ENCOUNTER 2024-10-12 09:15 | Outpatient (CLI) | payer MEDICARE, SELFPAY ==
--- NOTE | 2024-10-12 09:30 | CT_ITS ---
WS: [id number] CT HEAD TECHNIQUE: Noncontrast CT of the head obtained from the skullbase to the vertex. CLINICAL INFORMATION: 2 months ago hit head and lost consciousness COMPARISON: 2023 DLP: 906.[address] scans at [facility] use at least one of these dose optimization techniques: automated exposure control; mA and/or kV adjustment per patient size (includes targeted exams where dose is matched to clinical indication); or iterative reconstruction. FINDINGS: No evidence of intracranial hemorrhage or mass effect. Ventricular system and basal cisterns are patent. Moderate small vessel changes with moderate parenchymal volume loss. No extra-axial fluid collections. No evidence of mass or mass effect. Vascular calcification. Paranasal sinuses and mastoid air cells are well aerated. .Normal visualized soft tissues. CT/CT head wo con* [id number] IMPRESSION: 1. No evidence of intracranial hemorrhage or mass effect. 2. No acute intracranial findings.
--- NOTE | 2024-10-12 10:00 | CT_ITS ---
WS: [id number] CT CERVICAL TRAUMA TECHNIQUE: Noncontrast CT of the cervical spine with coronal and sagittal reformatted images. CLINICAL INFORMATION: Cervical neuralgia after fall injury COMPARISON: 2019 DLP: 148.[address] scans at [facility] use at least one of these dose optimization techniques: automated exposure control; mA and/or kV adjustment per patient size (includes targeted exams where dose is matched to clinical indication); or iterative reconstruction. FINDINGS: Exam is somewhat limited due to significant beam hardening artifact from fusion hardware. ACDF C4-C7 with corpectomy is at C5 and C6. Intervening strut graft at C5-6. No evidence of hardware loosening. Normal anterior fixation screws. Anterior fixation plate appears intact. Normal craniocervical junction. Normal C1-C2 articulation. Dens is normal in appearance. Normal occipital condyles. No high-grade spinal canal narrowing. Normal C1 ring. Severe bilateral bony foraminal narrowing C5-C6 and C6-C7. Normal prevertebral soft tissues. Mastoids air cells are well aerated. CT/CT cervical spin wo con* [id number] IMPRESSION: 1. No evidence of acute fracture or dislocation. 2. ACDF C4-C7 with corpectomy and intervening strut graft 3. Severe bilateral bony foraminal narrowing C5-C6 and C6-C7.
== END 2024-10-12 09:16 | disposition home or self-care (01) ==
PROVIDERS: PCP Family Medicine; Visit Provider Family Medicine
DX: M48.02 Spinal stenosis, cervical region (principal); R51.9 Headache, unspecified; S09.90XA Unspecified injury of head, initial encounter; R93.0 Abnormal findings on diagnostic imaging of skull and head, not elsewhere classified; R92.1 Mammographic calcification found on diagnostic imaging of breast; Z98.890 Other specified postprocedural states; Z98.1 Arthrodesis status; X58.XXXA Exposure to other specified factors, initial encounter
CPT/HCPCS: 70450; 72125

== ENCOUNTER 2024-10-19 10:15 | Emergency (ER) | payer MEDICARE, SELFPAY ==
[2024-10-19 10:23] VITALS: BP 97/71; PULSE 87; TEMP 36.6; O2SAT 94
--- NOTE | 2024-10-19 10:25 | XRR_ITS ---
PROCEDURE INFORMATION: Exam: XR Chest Exam date and time: 10/19/2024 10:28 AM Age: 64 years old Clinical indication: Other: Weakness; Prior surgery; Surgery date: 6+ months; Surgery type: Cardiac stents TECHNIQUE: Imaging protocol: Radiologic exam of the chest. Views: 1 view. COMPARISON: CR (CHEST, ) 10/06/2024 6:43 PM FINDINGS: Tubes, catheters and devices: Clips overlying the lower thoracic spine. Status post vertebroplasty/kyphoplasty in the lower thoracic spine. Lungs: Mild left basilar atelectasis. No focal consolidation. Pleural spaces: Unremarkable. No pleural effusion. No pneumothorax. Heart/Mediastinum: The cardiomediastinal silhouette appears stable. Calcifications of the aortic arch. Bones/joints: Anterior cervical disc fusion hardware in the visualized portions of the cervical spine. XR/XR chest 1V portable [id number] IMPRESSION: No acute cardiopulmonary abnormality.
--- NOTE | 2024-10-19 10:27 | ECG_ITS ---
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1960 Requested By: Cande Reyes Order Number: [id number] Reading MD: JESSE FONTANA Measurements Intervals [place] Rate: 84 P: 256 NV: 116 QRS: 31 QRSD: 84 T: 36 QT: 355 QTc: 422 Interpretive Statements JUNCTIONAL RHYTHM LOW QRS VOLTAGE IN PRECORDIAL LEADS [QRS DEFLECTION < 1.0 mV IN CHEST LEADS] POSSIBLE ANTERIOR MYOCARDIAL INFARCTION , PROBABLY OLD [30 ms Q WAVE IN V3/V4, OR R < 0.2 mV IN V4] ABNORMAL RHYTHM ECG Compared to ECG 10/06/2024 20:26:15 Junctional rhythm now present Myocardial infarct finding now present Sinus rhythm no longer present T-wave abnormality no longer present Possible ischemia no longer present Electronically Signed On 10-19-2024 19:07:28 CDT by JESSE FONTANA [email or web address]
--- NOTE | 2024-10-19 11:05 | CTR_ITS ---
PROCEDURE INFORMATION: Exam: CT Abdomen And Pelvis With Contrast Exam date and time: 10/19/2024 12:37 PM Age: 64 years old Clinical indication: Abdominal pain; Generalized; Prior surgery; Surgery date: 6+ months; Surgery type: Bowel surgery (crohns ds), gb; Additional info: Abd pain TECHNIQUE: Imaging protocol: Computed tomography of the abdomen and pelvis with contrast. Radiation optimization: All CT scans at this facility use at least one of these dose optimization techniques: automated exposure control; mA and/or kV adjustment per patient size (includes targeted exams where dose is matched to clinical indication); or iterative reconstruction. Contrast material: OMNIPAQUE 350; Contrast volume: 80 ml; Contrast route: INTRAVENOUS (IV); COMPARISON: CT abdomen pelvis wo con [id number] 05/25/2024 9:58 AM RADIATION DOSE METRICS: Total DLP (mGy-cm): 359.93 FINDINGS: Lungs: Mild bibasilar atelectasis. Liver: Diffuse hypoattenuation of the liver suggesting hepatic steatosis. Stable lobulated 2.5 cm cyst at the hepatic dome. The liver is normal in size. Gallbladder and biliary ducts: Status post cholecystectomy. Normal post cholecystectomy prominence of the common bile duct. Pancreas: Moderate parenchymal atrophy of the pancreas. Pancreatic duct appears dilated accentuated by atrophy measuring approximately 4 mm at the pancreatic body. Spleen: Scattered hypodensities in the spleen largest of which measures 1 cm too small to further characterize likely representing splenic cysts or hemangiomas. No splenomegaly. Adrenal glands: Normal. No mass. Kidneys and ureters: Normal. No hydronephrosis. Stomach and bowel: Postsurgical changes from partial colectomy and scattered small bowel resections. Less fluid distension at the anastomosis. Moderate constipation. Postsurgical changes at the gastroesophageal junction. No definitive evidence of small or large bowel obstruction. Appendix: Status post appendectomy. Intraperitoneal space: No intraperitoneal free air or fluid. Vasculature: Moderate to severe aortoiliac atherosclerosis. The portal vein is widely patent. Lymph nodes: Unremarkable. No enlarged lymph nodes. Urinary bladder: Unremarkable as visualized. Reproductive: Status post hysterectomy. Bones/joints: Status post vertebroplasty at T12. Similar diffuse disc bulge at L4-L5 with mild central canal stenosis. No acute osseous abnormality. Mild multilevel degenerative disease of the thoracolumbar spine. Soft tissues: Unremarkable. CT/CT abdomen pelvis w con* [id number] IMPRESSION: 1. Redemonstrated postsurgical changes as detailed above with less pronounced fluid distension noted at the anastomosis. No definitive evidence of small or large bowel obstruction. 2. No definitive acute abnormality in the abdomen and pelvis. Chronic findings as detailed in the body of the report.
--- NOTE | 2024-10-19 11:05 | W.ED.WEAKNES ---
HPI - Weakness General: Chief complaint: Weakness Stated complaint: weakness all over Time Seen by Provider: 10/19/24 11:00 Source: patient Mode of arrival: ambulatory Limitations: no limitations History of Present Illness: 64-year-old female states that over the last week she has been having pain in her neck she has chronic neck pain states she also has been having pain all over including her hips and her chest and abdomen. She states she has been feeling weak as well she denies any fever denies any vomiting or diarrhea denies any worse improving factors. Associated symptoms: Reports chest pain; Denies chills, dysuria, fever(s), headache(s), nausea or vomiting Review of Systems Const: Reports: fatigue; Denies: fever(s), chills, body aches or change in appetite Eyes: Denies: blurry vision or eye discomfort ENMT: Denies: throat pain or dental pain Card: Reports: chest pain Resp: Denies: dyspnea GI: Reports: abdominal pain; Denies: nausea, vomiting or diarrhea : Denies: dysuria Musc: Reports: neck pain and extremity pain; Denies: back pain Skin/Breast: Denies: rash Neuro: Denies: headache(s) PFS ED PFSH: Medical History Head injury due to trauma Concussion Neck pain Liver mass on CT 05/19 and LDCT 08/18; US 09/18 shows it is simple cyst Mixed dyslipidemia COPD (chronic obstructive pulmonary disease) Polyneuropathy associated with underlying disease CAD (coronary artery disease) one stent Type 2 diabetes mellitus Screening for lung cancer LDCT ordered for 09/18 Nicotine dependence, cigarettes, with other nicotine-induced disorders Psychiatric care Claudication Essential hypertension Neutrophilic leukocytosis Myocardial infarction acute 09/2019 Depression sees psychiatry Surgical History Hx of bilateral cataract extraction History of bladder surgery [facility]. Home Hx of cervical spine surgery X 2; one done at [facility], one done at [facility]. Home History of 3 sections S/P DONNA-BSO done b/c of ruptured uterus; no cancer History of incisional hernia repair Status post colonoscopy 8.9.23 [facility]--tubular adenoma and other polyps--repeat 3 yrs S/P cardiac cath one stent History of appendectomy H/O exploratory laparotomy Multiple bowel resections--3 X--done b/c of adhesions/blockages S/P cholecystectomy Family History Mother Breast cancer Sister Breast cancer Sister Breast cancer Brother Brain cancer Brother CAD (coronary artery disease) Social History Smoking and tobacco/nicotine status: current every day tobacco/nicotine user cigarettes Packs smoked per day: 0.5 [ Other cigarette details: started age 13] Alcohol intake: current Alcohol intake frequency: holidays/special occasions only Substance/Drug Use: never Household members: spouse and other Details: daughter, son in law and 2 grandkids Marital status: Number of children: 2 Highest education level completed: Bachelor's Degree Current occupational status: retired Previous occupational history: [employer] Female Reproductive History: Spontaneous abortions: No Physical Exam Const: COMMON NORMALS: no acute distress, patient oriented x3 and healthy appearing HENMT: COMMON NORMALS: normocephalic and atraumatic HEAD & SCALP: normocephalic and atraumatic Eye: COMMON NORMALS: conjunctivae normal CONJUNCTIVA: Yes conjunctivae normal Neck/C-Spine: COMMON NORMALS: full ROM and supple Chest: COMMONS NORMALS: normal inspection of the chest and normal palpation of entire chest wall Resp: COMMON NORMALS: normal respiratory effort, No retractions, No use of accessory muscles and clear to auscultation bilaterally AUSCULTATION: clear to auscultation bilaterally Cardio: COMMON NORMALS: regular rate, regular rhythm and No murmurs present (Cardio) RATE: regular rate RHYTHM: regular rhythm GI: COMMON NORMALS: Normal to inspection, nondistended, normoactive bowel sounds present, Soft to palpation, non-tender and no masses PALPATION: Yes Soft to palpation Extremity: COMMON NORMALS: normal to inspection and full ROM Neuro: COMMON NORMALS: patient oriented x3, moves all extremities and no focal motor deficits Psych: COMMON NORMALS: mental status grossly normal, Normal thought process present and cooperative THOUGHT PROCESS: Normal thought process present Skin: COMMON NORMALS: no rashes or lesions noted and no wounds GENERAL SKIN EXAM: no rashes or lesions noted Course Vital Signs: Vital signs: Vital Signs Temperature 97.8 F 05/26/25 10:23 Pulse Rate 74 10/19/24 11:18 Respiratory Rate 16 10/19/24 11:18 Blood Pressure 122/71 10/19/24 14:34 Pulse Oximetry 92 10/19/24 14:34 Oxygen Delivery Me thod Room Air 10/19/24 10:23 MDM - Weakness Medical Decision Making Patient presents for generalized weakness she is well-appearing here blood works normal she does have a UTI she feels improved we will give her antibiotics for home follow-up with PCP return if worsening. Medical Records I reviewed the patient's medical records. Lab Data I reviewed the patient's lab results. 10/19/24 12:27 10/19/24 12:27 Radiology Impressions Chest X-Ray 10/19/24 10:25 IMPRESSION: No acute cardiopulmonary abnormality. Abdomen/Pelvis CT 10/19/24 11:05 IMPRESSION: 1. Redemonstrated postsurgical changes as detailed above with less pronounced fluid distension noted at the anastomosis. No definitive evidence of small or large bowel obstruction. 2. No definitive acute abnormality in the abdomen and pelvis. Chronic findings as detailed in the body of the report. Laboratory Results WBC 8.39 10^3/uL (3.29-11.43) 10/19/24 12:27 RBC 4.05 10^6/uL (3.85-5.65) 10/19/24 12:27 Hgb 11.70 g/dL (11.27-16.99) 10/19/24 12:27 Hct 36.0 % (36-47) 10/19/24 12:27 MCV 88.9 fl (85-98) 10/19/24 12:27 MCH 28.9 pg (27-33) 10/19/24 12:27 MCHC 32.5 g/dL (30-55) 10/19/24 12: RDW 13.8 % (12.1-15.1) 10/19/24 12:27 Plt Count 300 10^3/cmm (157-399) 10/19/24 12:27 MPV 8.2 fL (7.4-10.4) 10/19/24 12:27 Neut % (Auto) 63.2 % 10/19/24 12:27 Lymph % (Auto) 26.5 % 10/19/24 12:27 [place] % (Auto) 8.6 % 10/19/24 12:27 Eos % (Auto) 1.1 % 10/19/24 12:27 Baso % (Auto) 0.2 % 10/19/24 12:27 Neut # (Auto) 5.31 10^3/uL (1.8-7.7) 10/19/24 12: Lymph # (Auto) 2.2 10^3/uL (0.8-4.8) 10/19/24 12:27 [place] # (Auto) 0.7 10^3/uL (0.2-0.9) 10/19/24 12: Eos # (Auto) 0.1 10^3/uL (0.0-0.8) 10/19/24 12: Baso # (Auto) 0.0 10^3/uL (0.0-0.1) 10/19/24 12: Nucleated RBC % (auto) 0 % 10/19/24 12: Nucleated RBCs # 0.0 /100WBC 10/19/24 12:27 Sodium 140 mmol/L (136-145) 10/19/24 12:27 Potassium 4.0 mmol/L (3.5-5.1) 10/19/24 12: Chloride 105 mmol/L (98-107) 10/19/24 12: Carbon Dioxide 26 mmol/L (22-29) 10/19/24 12: Anion Gap 13.0 (5-19) 10/19/24 12: BUN 5 mg/dL (8-23) L 10/19/24 12:27 Creatinine 0.6 mg/dL (0.5-0.9) 10/19/24 12:27 GFR Calculation 100.3 mL/min (90-130) 10/19/24 12:27 Glucose 109 mg/dL (65-115) 10/19/24 12: Calculated Osmolality 288 mOsm/kg (285-295) 10/19/24 12:27 Lactic Acid 1.5 mmol/L (0.5-2.2) 10/19/24 12:27 Calcium 8.9 mg/dL (8.5-10.5) 10/19/24 12:27 Total Bilirubin 0.3 mg/dL (0.15-1.2) 10/19/24 12:27 AST 22 U/L (0-32) 10/19/24 12:27 ALT 15 U/L (0-33) 10/19/24 12:27 Alkaline Phosphatase 65 U/L (35-105) 10/19/24 12:27 Troponin T Baseline 28 ng/L (0-10) H 10/19/24 12:27 Troponin T 120 Minute 23.58 ng/L (0-10) H 10/19/24 14:24 Delta Troponin T -4.42 ABS# (0-10) L 10/19/24 14:24 Total Protein 6.6 g/dL (6.6-8.7) 10/19/24 12:27 Albumin 4.0 g/dL (3.5-5.2) 10/19/24 12: Globulin 2.6 g/dL (1.3-4.6) 10/19/24 12: TSH 1.39 uIU/mL (0.27-4.20) 10/19/24 12:27 Urine Color Yellow (Yellow) 10/19/24 13:41 Urine Appearance Clear (CLEAR) 10/19/24 13:41 Urine pH 5.0 (5-7) 10/19/24 13:41 Ur Specific [place] 1.080 (1.005-1.030) H 10/19/24 13:41 Urine Protein Negative (Negative) 10/19/24 13:41 Urine Glucose (UA) Negative (Normal) 10/19/24 13:41 Urine Ketones Negative (Negative) 10/19/24 13:41 Urine Blood Negative (Negative) 10/19/24 13:41 Urine Nitrate Positive (Negative) A 10/19/24 13:41 Urine Bilirubin Negative (Negative) 10/19/24 13:41 Urine Urobilinogen 0.2 mg/dL (Negative) 10/19/24 13:41 Ur Leukocyte Esterase Negative (Negative) 10/19/24 13:41 Urine RBC 0-2 /hpf (0-2) 10/19/24 13:41 Urine WBC 0-5 /hpf (0-5) 10/19/24 13:41 Ur Squamous Epith Cells 6-10 /hpf (0-5) 10/19/24 13:41 Amorphous Sediment Not Reportable 10/19/24 13:41 Urine Bacteria 4+ /hpf (NONE) H 10/19/24 13:41 Hyaline Casts 0-4 /lpf H 10/19/24 13:41 All radiology interpretation(s) finalized by discharge EKG Data EKG 1: I personally reviewed and interpreted this EKG as follows: EKG interpretation date: 10/19/24 EKG interpretation time: 13:30 Interpretation: nsr hr 80 nost elevation qrs 90 qtc 417 Discharge Plan Discharge Patient Disposition: Home Clinical Impression: UTI (urinary tract infection), Generalized weakness Condition: Stable Prescriptions: New cephalexin 500 mg capsule 500 mg PO TID 7 Days Qty: 21 0RF No Action aspirin 81 mg tablet,delayed release (DR/EC) 81 mg PO DAILY Qty: 90 3RF amlodipine 5 mg tablet 5 mg PO DAILY Qty: 90 3RF clopidogrel 75 mg tablet 75 mg PO DAILY Qty: 90 3RF nitroglycerin [Nitrostat] 0.4 mg tablet, sublingual 0.4 mg SUBLINGUAL Q5M PRN (Reason: Chest Pain) Qty: 20 2RF Rx Instructions: do not exceed 3 doses per episode ipratropium-albuterol 0.5 mg-3 mg(2.5 mg base)/3 mL solution for nebulization 3 ml inhalation Q4H PRN (Reason: wheezing) Qty: 180 1RF isosorbide mononitrate 60 mg tablet extended release 24 hr 60 mg PO BID Qty: 180 0RF sertraline [Zoloft] 100 mg tablet 100 mg PO DAILY Qty: 30 0RF Rx Instructions: Start after 1 month on 50 mg buspirone 15 mg tablet 15 mg PO BID Qty: 60 2RF prazosin 2 mg capsule 2 mg PO BEDTIME Qty: 30 2RF trazodone 100 mg tablet 200 mg PO .HS PRN (Reason: insomnia) Qty: 60 2RF (DME) FreeStyle [place] 3 [place] Misc See Rx Instructions .Route Qty: 1 0RF Rx Instructions: As directed (DME) FreeStyle [place] 3 Sensor Device See Rx Instructions .Route Qty: 2 5RF Rx Instructions: As directed epinephrine [EpiPen 2-Redd] 0.3 mg/0.3 mL auto-injector 0.3 mg IM Q4H PRN (Reason: anaphylaxis) Qty: 2 1RF Creon 3,000-9,500- 15,000 unit capsule,delayed release(DR/EC) 1 cap PO TID Qty: 90 5RF (DME) pen needle, diabetic [TechLITE Pen Needle] 32 gauge x 5/32 needle See Rx Instructions .ROUTE .COMPLEX Qty: 100 0RF Dose Instruction: USE DIRECTED Rx Instructions: USE DIRECTED clonazepam 0.5 mg tablet 0.5 mg PO BID Qty: 60 1RF albuterol sulfate 90 mcg/actuation HFA aerosol inhaler 2 puff inhalation QID PRN (Reason: Shortness Of Breath) gabapentin 300 mg capsule 600 mg PO TID atorvastatin 20 mg tablet 20 mg PO BEDTIME pantoprazole 20 mg tablet,delayed release (DR/EC) 40 mg PO DAILY metoprolol tartrate 25 mg tablet 12.5 mg PO BID insulin glargine [Lantus Solostar U-100 Insulin] 100 unit/mL (3 mL) insulin pen 10 unit SUBCUT QPM hydroxyzine HCl 50 mg tablet 50 mg PO TID Discharge Orders: Discharge ED (Routine); Ordered 10/19/24 Ordered By: Evangelista Moses Referrals: Tiny Graff MD [Primary Care Provider, Family Practice] - 4-7 days Discharge Diet: Advance as tolerated Discharge Activity: Resume usual activity Patient Instructions: Urinary Tract Infection in Women (ED) Print Language: Guinean Coding Level of Care Code ED 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 Related Data Home Medications ?Medication ?Instructions ?Recorded ?Confirmed albuterol sulfate 90 mcg/actuation 2 puff inhalation QID PRN 04/09/24 09/24/24 aerosol inhaler Shortness Of Breath gabapentin 300 mg capsule 600 mg PO TID 04/19/24 09/24/24 atorvastatin 20 mg tablet 20 mg PO BEDTIME 05/25/24 09/24/24 hydroxyzine HCl 50 mg tablet 50 mg PO TID 05/25/24 09/24/24 insulin glargine 100 unit/mL (3 10 unit SUBCUT QPM 05/25/24 09/24/24 mL) subcutaneous pen (Lantus Solostar U-100 Insulin) metoprolol tartrate 25 mg tablet 12.5 mg PO BID 05/25/24 09/24/24 pantoprazole 20 mg tablet,delayed 40 mg PO DAILY 05/25/24 09/24/24 release Previous Rx's ?Medication ?Instructions ?Recorded aspirin 81 mg tablet,delayed 81 mg PO DAILY #90 tabs 02/25/23 release epinephrine 0.3 mg/0.3 mL 0.3 mg (0.3 mL) IM Q4H PRN 10/30/23 injection, auto-injector (EpiPen anaphylaxis #2 ea 2-Redd) amlodipine 5 mg tablet 5 mg PO DAILY #90 tabs 02/11/24 clopidogrel 75 mg tablet 75 mg PO DAILY #90 tabs 03/31/24 ipratropium 0.5 mg-albuterol 3 mg 3 ml inhalation Q4H PRN wheezing 03/31/24 (2.5 mg base)/3 mL nebulization #180 mL soln nitroglycerin 0.4 mg sublingual 0.4 mg sublingual Q5M PRN Chest 03/31/24 tablet (Nitrostat) Pain #20 tabs [id number] 1 cap PO TID #90 caps 04/09/24 3,000-9,500-15,000 unit capsule, delayed rel (Creon) isosorbide mononitrate 60 mg 60 mg PO BID #180 tabs 06/04/24 tablet,extended release 24 hr buspirone 15 mg tablet 15 mg PO BID #60 tabs 06/12/24 prazosin 2 mg capsule 2 mg PO BEDTIME #30 caps 06/12/24 sertraline 100 mg tablet (Zoloft) 100 mg PO DAILY #30 tabs 06/12/24 trazodone 100 mg tablet 200 mg (2 x 100 mg) PO .HS PRN 06/12/24 insomnia #60 tabs 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 sensor (FreeStyle #2 ea 07/28/24 [place] 3 Sensor device) 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,endless bed drum sander,cont #1 ea 07/28/24 (FreeStyle [place] 3 [place]) pen needle, diabetic 32 gauge x #100 ea 09/10/24 (TechLITE Pen Needle) clonazepam 0.5 mg tablet 0.5 mg PO BID #60 tabs 10/15/24 cephalexin 500 mg capsule 500 mg PO TID 7 days #21 caps 10/19/24 Allergies Allergy/AdvReac Type Severity Reaction Status Date / Time ciprofloxacin (From Cipro) Allergy Severe Unresponsiv Verified 10/19/24 10:32 e codeine Allergy Severe ALGY-Anaphy Verified 10/19/24 10:32 laxis lidocaine Allergy Severe ALGY-Swell Verified 10/19/24 10:32 Lip/Tongue/Throat morphine Allergy Severe ALGY-Anaphy Verified 10/19/24 10:32 laxis Penicillins Allergy Severe ALGY-Swell Verified 10/19/24 10:32 Lip/Tongue/Throat procaine (From Novocain) Allergy Severe ALGY-Swell Verified 10/19/24 10:32 Lip/Tongue/Throat prochlorperazine (From Allergy Severe ALGY-Swell Verified 10/19/24 10:32 Compazine) Lip/Tongue/Throat adhesive tape Allergy Unknown Unknown Verified 10/19/24 10:32 Sulfa (Sulfonamide Allergy Unknown Unknown Verified 10/19/24 10:32 Antibiotics) methocarbamol Allergy ALGY-Redness Verified 10/19/24 10:32 of Skin
[2024-10-19 11:18] VITALS: BP 114/82; PULSE 74; RESP 16; O2SAT 94
[2024-10-19 11:45] VITALS: BP 114/82; O2SAT 94
[2024-10-19 12:02] VITALS: BP 114/82; O2SAT 94
[2024-10-19] MEDS: HYDROmorphone 0.5 MG/0.5 ML INJ IVP ×2 (12:21→14:00)
[2024-10-19] MEDS: ondansetron 2 mg/ML SDV 2 mL 4 MG IVP (12:21)
[2024-10-19 12:35] LABS: Basophils % 0.2 %; Eosinophils # 0.1 10^3/uL (0.0-0.8); Eosinophils % 1.1 %; Lymphocytes # 2.2 10^3/uL (0.8-4.8); Lymphocytes % 26.5 %; Mean Corpuscular HGB Conc 32.5 g/dL (30-55); Mean Corpuscular Hemoglobin 28.9 pg (27-33); Mean Corpuscular Volume 88.9 fl (85-98); Mean Platelet Volume 8.2 fL (7.4-10.4); Monocytes # 0.7 10^3/uL (0.2-0.9); Monocytes % 8.6 %; Neutrophils # 5.31 10^3/uL (1.8-7.7); Neutrophils % 63.2 %; Nucleated Red Blood Cells % 0 %; Platelet Count 300 10^3/cmm (157-399); Red Blood Count 4.05 10^6/uL (3.85-5.65); Red Cell Distribution Width 13.8 % (12.1-15.1); White Blood Count 8.39 10^3/uL (3.29-11.43)
[2024-10-19] MEDS: iohexol 350 mg/mL 500 mL Btl (per mL) IV (12:49)
[2024-10-19 12:54] LABS: Troponin(5th) Baseline 28 ng/L (0-10)
[2024-10-19 13:04] LABS: Alanine Aminotransferase 15 U/L (0-33); Alkaline Phosphatase 65 U/L (35-105); Aspartate Amino Transferase 22 U/L (0-32); Blood Urea Nitrogen 5 mg/dL (8-23); Calcium 8.9 mg/dL (8.5-10.5); Carbon Dioxide 26 mmol/L (22-29); Chloride 105 mmol/L (98-107); Creatinine Clr Calc Pharmacy 56.7286; Globulin 2.6 g/dL (1.3-4.6); Glomerular Filtration Rate 100.3 mL/min (90-130); Glucose 109 mg/dL (65-115); Osmolality Calculated 288 mOsm/kg (285-295); Sodium 140 mmol/L (136-145); Thyroid Stimulating Hormone 1.39 uIU/mL (0.27-4.20); Total Bilirubin 0.3 mg/dL (0.15-1.2); Total Protein 6.6 g/dL (6.6-8.7)
--- NOTE | 2024-10-19 13:04 | ECG_ITS ---
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: : 1960 Requested By: Evangelista Moses Order Number: [id number] Reading MD: JESSE FONTANA Measurements Intervals [place] Rate: 80 P: 114 NH: 111 QRS: 79 QRSD: 90 T: 73 QT: 381 QTc: 440 Interpretive Statements SINUS RHYTHM WITH SHORT NH INTERVAL LOW QRS VOLTAGE IN PRECORDIAL LEADS [QRS DEFLECTION < 1.0 mV IN CHEST LEADS] SEPTAL MYOCARDIAL INFARCTION , OF INDETERMINATE AGE [40+ ms Q WAVE IN V1/V2] Compared to ECG 10/19/2024 10:27:43 Short NH interval now present Junctional rhythm no longer present Myocardial infarct finding still present Electronically Signed On 10-19-2024 19:07:21 CDT by JESSE FONTANA [email or web address]
[2024-10-19 13:54] LABS: Bilirubin Urine Negative (Negative); Blood Urine Negative (Negative); Glucose Urine UA Negative (Normal); Ketones Urine Negative (Negative); Leukocyte Esterase Urine Negative (Negative); Nitrate Urine Positive (Negative); Protein Urine Negative (Negative); Urine Appearance Clear (CLEAR); Urine Color Yellow (Yellow); Urobilinogen Urine 0.2 mg/dL (Negative)
[2024-10-19 14:00] LABS: Add Urine Microscopic? YES; Bacteria Urine 4+ /hpf; Hyaline Casts Urine 0-4 /lpf; RBC Urine 0-2 /hpf (0-2); WBC Urine 0-5 /hpf (0-5)
[2024-10-19] MEDS: aspirin 81 mg Chew Tablet 324 MG PO (14:00)
[2024-10-19 14:01] LABS: Add Urine Culture? Yes
[2024-10-19] MEDS: sodium chloride 0.9% 1,000 ML 999 ML IV ×2 (14:20→14:28)
[2024-10-19] MEDS: cefTRIAXone 1,000 mg SDV 1000 MG IVP (14:28)
[2024-10-19 14:34] VITALS: BP 122/71; O2SAT 92
[2024-10-19 14:37] LABS: Lactic Sepsis W/Reflex 1.5 mmol/L (0.5-2.2)
[2024-10-19 14:59] LABS: Troponin 5 2HR 23.58 ng/L (0-10)
[2024-10-19 15:02] LABS: Troponin 5 2HR Delta -4.42 ABS# (0-10)
== END 2024-10-19 15:36 | disposition home or self-care (01) ==
PROVIDERS: Physician Assistant; Emergency Provider Emergency Medicine; PCP Family Medicine
DX: N39.0 Urinary tract infection, site not specified (principal); R53.1 Weakness; F17.210 Nicotine dependence, cigarettes, uncomplicated
CPT/HCPCS: 71045; 74177; 80053; 81001; 83605; 84443; 84484; 85025; 87077; 87086; 87186; 93005; 96374; 96375; 96376; 99285; J0696; J1171; J2405; J7030; J9999

== ENCOUNTER 2024-10-26 17:50 | Inpatient (IN) | payer MEDICARE, SELFPAY ==
--- NOTE | 2024-10-26 17:51 | XRR_ITS ---
PROCEDURE INFORMATION: Exam: XR Right Hip Exam date and time: 10/26/2024 6:42 PM Age: 64 years old Clinical indication: Hip pain; Right hip TECHNIQUE: Imaging protocol: Radiologic exam of the right hip. Views: 1 view hip with pelvis when performed. COMPARISON: CT abdomen pelvis w con* [id number] 10/19/2024 12:37 PM FINDINGS: Bones/joints: There is new subtle impaction of the right femoral neck. Left proximal femur appears intact. No displaced fracture of the bony pelvis. Soft tissues: Unremarkable. Gastrointestinal tract: Bowel suture line noted in the central pelvis. Vasculature: Mild arterial calcification. XR/XR hip RT 2-3V wo/w pel* [id number] IMPRESSION: Slightly impacted right femoral neck fracture. No additional displaced fracture. If there is clinical suspicion of additional nondisplaced fractures, consider CT or MR.
[2024-10-26 18:00] VITALS: BP 116/72; PULSE 78; RESP 16; TEMP 36.7; O2SAT 94; BMI 21.9
--- NOTE | 2024-10-26 19:34 | W.ED.LOWEXIN ---
HPI - Extremity Injury (Lower) General: Chief Complaint: Extremity Injury, Lower Stated Complaint: R hip pain Time Seen by Provider: 10/26/24 18:57 Source: patient and family Mode of arrival: wheelchair Limitations: no limitations History of Present Illness: Patient is a 64-year-old female presents to ED today with a main complaint of right hip pain following a slip and fall earlier today. Patient states she has not been able to bear weight fully on the extremity secondary to discomfort. She denies striking her head or LOC. She denies numbness, tingling, loss of sensation to the leg. She is not having any significant back pain. Past medical history is fairly significant including coronary artery disease with previous SC/stenting, diabetes, neuropathy, COPD, HTN, hyperlipidemia. She does take Plavix. MD complaint: hip injury Onset (ago): hour(s) Injury: Right: hip Place: home Severity: moderate Relieving factors: immobilization Exacerbating factors: weight bearing, movement and palpation Context: fall Associated symptoms: Reports inability to bear weight Other symptoms: none Related Data Home Medications ?Medication ?Instructions ?Recorded ?Confirmed albuterol sulfate 90 mcg/actuation 2 puff inhalation QID PRN 04/09/24 09/24/24 aerosol inhaler Shortness Of Breath gabapentin 300 mg capsule 600 mg PO TID 04/19/24 09/24/24 atorvastatin 20 mg tablet 20 mg PO BEDTIME 05/25/24 09/24/24 hydroxyzine HCl 50 mg tablet 50 mg PO TID 05/25/24 09/24/24 metoprolol tartrate 25 mg tablet 12.5 mg PO BID 05/25/24 09/24/24 pantoprazole 20 mg tablet,delayed 40 mg PO DAILY 05/25/24 09/24/24 release Previous Rx's ?Medication ?Instructions ?Recorded aspirin 81 mg tablet,delayed 81 mg PO DAILY #90 tabs 02/25/23 release epinephrine 0.3 mg/0.3 mL 0.3 mg (0.3 mL) IM Q4H PRN 10/30/23 injection, auto-injector (EpiPen anaphylaxis #2 ea 2-Redd) amlodipine 5 mg tablet 5 mg PO DAILY #90 tabs 02/11/24 clopidogrel 75 mg tablet 75 mg PO DAILY #90 tabs 03/31/24 ipratropium 0.5 mg-albuterol 3 mg 3 ml inhalation Q4H PRN wheezing 03/31/24 (2.5 mg base)/3 mL nebulization #180 mL soln nitroglycerin 0.4 mg sublingual 0.4 mg sublingual Q5M PRN Chest 03/31/24 tablet (Nitrostat) Pain #20 tabs dxzcdm-xurgsjck-jilopab 1 cap PO TID #90 caps 04/09/24 3,000-9,500-15,000 unit capsule, delayed rel (Creon) isosorbide mononitrate 60 mg 60 mg PO BID #180 tabs 06/04/24 tablet,extended release 24 hr buspirone 15 mg tablet 15 mg PO BID #60 tabs 06/12/24 prazosin 2 mg capsule 2 mg PO BEDTIME #30 caps 06/12/24 sertraline 100 mg tablet (Zoloft) 100 mg PO DAILY #30 tabs 06/12/24 trazodone 100 mg tablet 200 mg (2 x 100 mg) PO .HS PRN 06/12/24 insomnia #60 tabs 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 sensor (FreeStyle #2 ea 07/28/24 Selwyn 3 Sensor device) 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,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,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 #1 ea 07/28/24 (FreeStyle Selwyn 3 [place]) pen needle, diabetic 32 gauge x #100 ea 09/10/24 5 (TechLITE Pen Needle) clonazepam 0.5 mg tablet 0.5 mg PO BID #60 tabs 10/15/24 insulin glargine 100 unit/mL (3 10 unit (0.1 mL) SUBCUT QPM #15 mL 10/21/24 mL) subcutaneous pen (Lantus Solostar U-100 Insulin) Allergies Allergy/AdvReac Type Severity Reaction Status Date / Time ciprofloxacin (From Cipro) Allergy Severe Unresponsiv Verified 10/19/24 10:32 e codeine Allergy Severe ALGY-Anaphy Verified 10/19/24 10:32 laxis lidocaine Allergy Severe ALGY-Swell Verified 10/19/24 10:32 Lip/Tongue/Throat morphine Allergy Severe ALGY-Anaphy Verified 10/19/24 10:32 laxis Penicillins Allergy Severe ALGY-Swell Verified 10/19/24 10:32 Lip/Tongue/Throat procaine (From Novocain) Allergy Severe ALGY-Swell Verified 10/19/24 10:32 Lip/Tongue/Throat prochlorperazine (From Allergy Severe ALGY-Swell Verified 10/19/24 10:32 Compazine) Lip/Tongue/Throat adhesive tape Allergy Unknown Unknown Verified 10/19/24 10:32 Sulfa (Sulfonamide Allergy Unknown Unknown Verified 10/19/24 10:32 Antibiotics) methocarbamol Allergy ALGY-Redness Verified 10/19/24 10:32 of Skin Review of Systems Eyes: Denies: change in vision, blurry vision, photophobia, eye discharge, floaters or seeing flashes ENMT: Denies: throat pain, odynophagia, ear or mastoid pain, ear discharge, nasal discharge, epistaxis or sinus pain Card: Denies: chest pain, palpitations, lightheadedness, syncope or pre-syncope Resp: Denies: dyspnea or pain on inspiration GI: Denies: abdominal pain : Denies: flank pain or hematuria Musc: Reports: joint pain (R hip) and limited range of motion; Denies: neck pain, back pain, extremity pain, extremity swelling, joint swelling, joint redness, joint warmth or joint stiffness Neuro: Reports: difficulty walking (due to R hip pain); Denies: headache(s), numbness in extremities, weakness in extremities, sensory changes or dizziness PFSH ED PFSH: Medical History Head injury due to trauma Concussion Neck pain Liver mass on CT 05/19 and LDCT 08/18; US 09/18 shows it is simple cyst Mixed dyslipidemia COPD (chronic obstructive pulmonary disease) Polyneuropathy associated with underlying disease CAD (coronary artery disease) one stent Type 2 diabetes mellitus Screening for lung cancer LDCT ordered for 09/18 Nicotine dependence, cigarettes, with other nicotine-induced disorders Psychiatric care Claudication Essential hypertension Neutrophilic leukocytosis Myocardial infarction acute 09/2019 Depression sees psychiatry Surgical History Hx of bilateral cataract extraction History of bladder surgery [facility] Home Hx of cervical spine surgery X 2; one done at [facility], one done at [facility]. Home History of 3 sections S/P DONNA-BSO done b/c of ruptured uterus; no cancer History of incisional hernia repair Status post colonoscopy 8.9.23 OZH--tubular adenoma and other polyps--repeat 3 yrs S/P cardiac cath one stent History of appendectomy H/O exploratory laparotomy Multiple bowel resections--3 X--done b/c of adhesions/blockages S/P cholecystectomy Family History Mother Breast cancer Sister Breast cancer Sister Breast cancer Brother Brain cancer Brother CAD (coronary artery disease) Social History Smoking and tobacco/nicotine status: current every day tobacco/nicotine user cigarettes Packs smoked per day: 0.5 [ Other cigarette details: started age 13] Alcohol intake: current Alcohol intake frequency: holidays/special occasions only Substance/Drug Use: never Household members: spouse and other Details: daughter, son in law and 2 grandkids Marital status: Number of children: 2 Highest education level completed: Bachelor's Degree Current occupational status: retired Previous occupational history: [employer] Female Reproductive History: Spontaneous abortions: No Physical Exam Const: COMMON NORMALS: no acute distress, average body habitus, patient oriented x3, no limitations, healthy appearing, alert and well nourished GENERAL APPEARANCE: cooperative ORIENTATION/CONSCIOUSNESS: Yes awake, Yes oriented to person, Yes oriented to place and Yes oriented to time HENMT: COMMON NORMALS: normocephalic, atraumatic and TM's normal bilaterally HEAD & SCALP: normal to inspection, normocephalic and atraumatic; no Camargo's sign, no hematoma and no raccoon eyes FACE & SINUS: normal facial exam TYMPANIC MEMBRANE: TM's normal bilaterally MOUTH: other (no intraoral injuries noted) Eye: COMMON NORMALS: Equal, round and reactive pupils present and EOMs intact bilaterally GENERAL EYE: appearance normal, both eyes and all related structures and normal light reflex PUPIL: Yes Equal, round and reactive pupils present DIRECT OPHTHALMOSCOPY: Yes normal light reflex Neck/C-Spine: COMMON NORMALS: full ROM GENERAL: Yes normal visual inspection CERVICAL SPINE: Yes cervical ROM normal, No pain with cervical ROM, No Cervical spine tenderness, No step off deformity and No Paracervical muscle tenderness Chest: COMMONS NORMALS: normal inspection of the chest and normal palpation of entire chest wall Resp: COMMON NORMALS: normal respiratory effort and clear to auscultation bilaterally AUSCULTATION: clear to auscultation bilaterally Cardio: COMMON NORMALS: regular rate and regular rhythm RATE: regular rate RHYTHM: regular rhythm GI: COMMON NORMALS: Normal to inspection, nondistended, normoactive bowel sounds present, Soft to palpation, non-tender, No hepatosplenomegaly present and no masses INSPECTION: Yes normal to inspection and No abdominal wall ecchymosis AUSCULTATION: Yes normoactive bowel sounds PALPATION: Yes Soft to palpation and Yes No hepatosplenomegaly present Back/Pelvis: COMMON NORMALS: thoracic and lumbar spine normal to inspection, no thoracic nor lumbar tenderness and thoraco-lumbar ROM normal Extremity: COMMON NORMALS: normal to inspection, capillary refill normal, no clubbing, cyanosis or edema, no calf tenderness and no pedal edema GENERAL: Yes normal exam except as noted RIGHT LOWER EXTREMITY: Yes hip joint (TTP R hip) Right hip: Yes ROM (limited ROM due to pain) and Yes neurovascular exam (normal) Neuro: SERAFIN COMA SCALE: document GCS findings Hercules coma scale eye opening: Spontaneous Serafin coma scale verbal response: Orientated Serafin coma scale motor response: Obey commands Serafin coma scale total score: 15 COMMON NORMALS: patient oriented x3, CN's II-XII intact bilaterally, moves all extremities, no focal motor deficits and no sensory deficits noted SENSORIUM/ORIENTATION: Yes alert, Yes oriented to person, Yes oriented to place and Yes oriented to time SPEECH: speech normal GAIT: Yes Unable to assess gait Skin: COMMON NORMALS: no rashes or lesions noted GENERAL SKIN EXAM: no rashes or lesions noted TRAUMA: no lacerations or abrasions Course Consultations: Consultation #1: Dr. Pizarro-will consult on patient Consultation #2: Dr. Simpson-accepts hospitalization Vital Signs: Vital signs: Vital Signs Temperature 98.1 F 10/26/24 18:00 Pulse Rate 82 10/26/24 20:36 Respiratory Rate 16 10/26/24 18:00 Blood Pressure 121/88 10/26/24 20:36 Pulse Oximetry 94 10/26/24 20:36 Oxygen Delivery Me thod Room Air 10/26/24 20:36 MDM - Extremity Injury (Lower) Medical Decision Making Patient is 64-year-old female here for right hip injury following a slip and fall earlier today. She was found to have an impacted right femoral neck fracture. Spoke to orthopedic surgeon Dr. Pizarro who will consult on patient tomorrow. She will be admitted to hospitalist. She is on Plavix so this will delay surgery. Medical Records I reviewed the patient's medical records. Lab Data Radiology Impressions Hip/Pelvis X-Ray 10/26/24 17:51 IMPRESSION: Slightly impacted right femoral neck fracture. No additional displaced fracture. If there is clinical suspicion of additional nondisplaced fractures, consider CT or MR. Pelvis CT 10/26/24 20:01 IMPRESSION: 1. Impacted right femoral neck fracture. No additional acute bony injury is evident. 2. Subjective bony demineralization could be quantified with DEXA. All radiology interpretation(s) finalized by discharge Discharge Plan Discharge Patient Disposition: Admitted As Inpatient Clinical Impression: Closed fracture of neck of right femur Condition: Stable Coding Level of Care Code ED Mechanical Design Technician for Sonya Patrick
--- NOTE | 2024-10-26 20:01 | CTR_ITS ---
PROCEDURE INFORMATION: Exam: CT Pelvis Without Contrast, Skeleton Exam date and time: 10/26/2024 8:22 PM Age: 64 years old Clinical indication: Injury or trauma; Fall; Blunt trauma (contusions or hematomas); Right; Hip; Additional info: Fall, R hip pain TECHNIQUE: Imaging protocol: Computed tomography of the pelvis without contrast. Exam focused on the skeleton. Radiation optimization: All CT scans at this facility use at least one of these dose optimization techniques: automated exposure control; mA and/or kV adjustment per patient size (includes targeted exams where dose is matched to clinical indication); or iterative reconstruction. COMPARISON: CT abdomen pelvis w con* [id number] 10/19/2024 12:37 PM RADIATION DOSE METRICS: Total DLP (mGy-cm): 219.62 FINDINGS: Intestine: Patent small bowel anastomosis. Vasculature: Moderate arterial calcification. Visualized arterial structures are normal in caliber. Reproductive: Prior hysterectomy. No evidence of vaginal cuff or adnexal mass. Bones/joints: Subjective bony demineralization. Intact bony pelvis. There is an impacted fracture of the right femoral neck with the greatest degree of impaction along the lateral aspect. There is mild fatty atrophy of skeletal muscle. Soft tissues: No perineal/perianal abscess or inflammation. No visible skin breakdown. CT/CT bony pelvis [id number] IMPRESSION: 1. Impacted right femoral neck fracture. No additional acute bony injury is evident. 2. Subjective bony demineralization could be quantified with DEXA.
[2024-10-26] MEDS: HYDROcodone-acetaminophen 5-325 mg Tablet 1 TAB PO (20:17)
--- NOTE | 2024-10-26 20:31 | XRR_ITS ---
PROCEDURE INFORMATION: Exam: XR Chest Exam date and time: 10/26/2024 8:50 PM Age: 64 years old Clinical indication: Injury or trauma; Fall; Blunt trauma (contusions or hematomas); Additional info: Hip FX TECHNIQUE: Imaging protocol: Radiologic exam of the chest. Views: 1 view. COMPARISON: CR XR chest 1V portable [id number] 10/19/2024 10:28 AM FINDINGS: Lungs: Clear, symmetrically inflated lungs. Pleural spaces: No pleural effusion. No pneumothorax. Heart/Mediastinum: Cardiac silhouette is normal in size for technique. Bones/joints: There is vertebroplasty cement in a lower thoracic vertebral body. Cervical fusion hardware is partly visualized. Subjective bony demineralization. Intraperitoneal space: Upper abdominal and low midline chest surgical clips are noted. XR/XR chest 1V portable [id number] IMPRESSION: No acute cardiopulmonary abnormality.
[2024-10-26 20:36] VITALS: BP 121/88; PULSE 82; O2SAT 94
[2024-10-26 21:23] LABS: Basophils % 0.2 %; Eosinophils # 0.1 10^3/uL (0.0-0.8); Eosinophils % 0.5 %; Hematocrit 41.3 % (36-47); Lymphocytes # 1.8 10^3/uL (0.8-4.8); Lymphocytes % 14.9 %; Mean Corpuscular HGB Conc 33.2 g/dL (30-55); Mean Corpuscular Hemoglobin 29.4 pg (27-33); Mean Corpuscular Volume 88.6 fl (85-98); Mean Platelet Volume 8.4 fL (7.4-10.4); Monocytes # 0.8 10^3/uL (0.2-0.9); Monocytes % 6.7 %; Neutrophils % 77.2 %; Nucleated Red Blood Cells % 0 %; Platelet Count 330 10^3/cmm (157-399); Red Blood Count 4.66 10^6/uL (3.85-5.65); Red Cell Distribution Width 14.6 % (12.1-15.1); White Blood Count 11.91 10^3/uL (3.29-11.43)
[2024-10-26 21:38] LABS: Alanine Aminotransferase 24 U/L (0-33); Albumin Level 4.6 g/dL (3.5-5.2); Alkaline Phosphatase 78 U/L (35-105); Anion Gap 16.2 (5-19); Aspartate Amino Transferase 22 U/L (0-32); Blood Urea Nitrogen 11 mg/dL (8-23); Calcium 9.4 mg/dL (8.5-10.5); Carbon Dioxide 28 mmol/L (22-29); Chloride 100 mmol/L (98-107); Creatinine Clr Calc Pharmacy 55.0362; Globulin 3.7 g/dL (1.3-4.6); Glucose 161 mg/dL (65-115); Osmolality Calculated 293 mOsm/kg (285-295); Potassium 4.2 mmol/L (3.5-5.1); Sodium 140 mmol/L (136-145); Total Bilirubin 0.4 mg/dL (0.15-1.2); Total Protein 8.3 g/dL (6.6-8.7)
--- NOTE | 2024-10-26 21:57 | ECG_ITS ---
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: : 1960 Requested By: Cande Reyes Order Number: [id number] Reading MD: JESSE FONTANA Measurements Intervals [place] Rate: 83 P: 64 VA: 176 QRS: 66 QRSD: 81 T: 55 QT: 365 QTc: 429 Interpretive Statements SINUS RHYTHM POSSIBLE RIGHT VENTRICULAR CONDUCTION DELAY [RSR (QR) IN V1/V2] ST DEVIATION AND MODERATE T-WAVE ABNORMALITY, CONSIDER ANTERIOR ISCHEMIA [-0.1+ mV T-WAVE IN V3/V4] Compared to ECG 10/19/2024 13:30:39 T-wave abnormality now present Possible ischemia now present Short VA interval no longer present Myocardial infarct finding no longer present Electronically Signed On 10-28-2024 23:06:01 CDT by JESSE FONTANA [id number]
[2024-10-26 22:00] VITALS: BP 140/82; PULSE 83; RESP 16; O2SAT 93
[2024-10-26] MEDS: HYDROmorphone 0.5 MG/0.5 ML INJ IVP (22:08)
--- NOTE | 2024-10-26 22:43 | PC.NURSE ---
pt after pain medication O2 sat went to 88% on RA, pt resting with eyes closed. This nurse placed pt on 2L JERRELL, Cande GORDON notified.
[2024-10-27] VITALS (14 sets, daily range): BP systolic 90–121; BP diastolic 61–82; PULSE 72–98; RESP 14–19; TEMP 36.6–36.9; O2SAT 90–94
[2024-10-27 00:31] LABS: Bilirubin Urine Negative (Negative); Blood Urine Negative (Negative); Glucose Urine UA Negative (Normal); Ketones Urine Trace (Negative); Leukocyte Esterase Urine Trace (Negative); Nitrate Urine Negative (Negative); Protein Urine Negative (Negative); Specific Gravity, Urine 1.024 (1.005-1.030); Urine Appearance Clear (CLEAR); Urine Color Dark Yellow (Yellow)
[2024-10-27 00:36] LABS: Add Urine Microscopic? YES; Bacteria Urine None Seen /hpf; Hyaline Casts Urine 1.21 /lpf; WBC Urine 0-5 /hpf (0-5)
[2024-10-27 00:52] LABS: Add Urine Culture? No; UA Slide Review UA Slide Review Perf
[2024-10-27] MEDS: sodium chloride 0.9% 1,000 ML 75 ML IV ×2 (04:00→17:29)
[2024-10-27] MEDS: HYDROmorphone 0.5 MG/0.5 ML INJ IVP ×7 (04:31→20:34)
[2024-10-27] MEDS: docusate sodium 100 mg Capsule PO ×2 (09:30→17:58)
[2024-10-27] MEDS: gabapentin 300 mg Capsule 600 MG PO ×3 (09:30→20:00)
[2024-10-27] MEDS: pantoprazole DR 40 mg Tablet PO (09:30)
[2024-10-27] MEDS: amlodipine 5 mg Tablet PO (09:31)
[2024-10-27] MEDS: sertraline 100 mg Tablet PO (09:31)
[2024-10-27] MEDS: BuSPIRONE 10 mg Tablet 15 MG PO ×2 (09:42→17:57)
--- NOTE | 2024-10-27 10:39 | PM.HP ---
Providers/Chief Complaint Admitting Physician: Leyla Simpson MD Primary Care Provider: Tiny Graff MD Chief Complaint: R hip pain History of Present Illness Yessi Schulte is a 64 year old female who sustained a mechanical fall when the dog tripped on her patient fell on the right hip fracturing the femoral neck. Emergency room attending had consulted orthopedics to follow-up with this patient and they will follow-up with her at this also be noted that this patient is on Plavix and did take Plavix on this very day of admission which was 10/26/2024. The decision of the surgery timing is left up to the orthopedics patient right femoral neck fracture will be repaired but timing is of the essence because of Plavix on board for an increase risks of bleeding. Patient is in a lot of pain and doing fairly okay on Dilaudid as needed Review of Systems Narrative: System review upon 10 organ review is significant for musculoskeletal with femur on neck fracture. Medications/Allergies Home Medications ?Medication ?Instructions ?Recorded ?Confirmed ?Last Taken ?Type aspirin 81 mg tablet,delayed 81 mg PO DAILY #90 tabs 02/25/23 10/27/24 05/24/24 Rx release epinephrine 0.3 mg/0.3 mL 0.3 mg (0.3 mL) IM Q4H PRN 10/30/23 10/27/24 Unknown Rx injection, auto-injector (EpiPen anaphylaxis #2 ea 2-Redd) amlodipine 5 mg tablet 5 mg PO DAILY #90 tabs 02/11/24 10/27/24 05/24/24 Rx clopidogrel 75 mg tablet 75 mg PO DAILY #90 tabs 03/31/24 10/27/24 05/24/24 Rx ipratropium 0.5 mg-albuterol 3 mg 3 ml inhalation Q4H PRN wheezing 03/31/24 10/27/24 Unknown Rx (2.5 mg base)/3 mL nebulization #180 mL soln nitroglycerin 0.4 mg sublingual 0.4 mg sublingual Q5M PRN Chest 03/31/24 10/27/24 Unknown Rx tablet (Nitrostat) Pain #20 tabs albuterol sulfate 90 mcg/actuation 2 puff inhalation QID PRN 04/09/24 10/27/24 Unknown History aerosol inhaler Shortness Of Breath ibrosz-uitxqvaa-rrakfkq 1 cap PO TID #90 caps 04/09/24 10/27/24 05/24/24 Rx 3,000-9,500-15,000 unit capsule, delayed rel (Creon) gabapentin 300 mg capsule 600 mg PO TID 04/19/24 10/27/24 05/24/24 History atorvastatin 20 mg tablet 20 mg PO BEDTIME 05/25/24 10/27/24 05/23/24 History hydroxyzine HCl 50 mg tablet 50 mg PO TID 05/25/24 10/27/24 05/24/24 History metoprolol tartrate 25 mg tablet 12.5 mg PO BID 05/25/24 10/27/24 05/24/24 History pantoprazole 20 mg tablet,delayed 40 mg PO DAILY 05/25/24 10/27/24 05/24/24 History release isosorbide mononitrate 60 mg 60 mg PO BID #180 tabs 06/04/24 10/27/24 Unknown Rx tablet,extended release 24 hr buspirone 15 mg tablet 15 mg PO BID #60 tabs 06/12/24 10/27/24 Unknown Rx prazosin 2 mg capsule 2 mg PO BEDTIME #30 caps 06/12/24 10/27/24 Unknown Rx sertraline 100 mg tablet (Zoloft) 100 mg PO DAILY #30 tabs 06/12/24 10/27/24 Unknown Rx trazodone 100 mg tablet 200 mg (2 x 100 mg) PO .HS PRN 06/12/24 10/27/24 Unknown Rx insomnia #60 tabs 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 sensor (FreeStyle #2 ea 07/28/24 10/27/24 Unknown Rx Selwyn 3 Sensor device) 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,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,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 #1 ea 07/28/24 10/27/24 Unknown Rx (FreeStyle Selwyn 3 [place]) pen needle, diabetic 32 gauge x #100 ea 09/10/24 10/27/24 Unknown Rx / (TechLITE Pen Needle) clonazepam 0.5 mg tablet 0.5 mg PO BID #60 tabs 10/15/24 10/27/24 Unknown Rx insulin glargine 100 unit/mL (3 10 unit (0.1 mL) SUBCUT QPM #15 mL 10/21/24 10/27/24 Unknown Rx mL) subcutaneous pen (Lantus Solostar U-100 Insulin) Allergies Allergy/AdvReac Type Severity Reaction Status Date / Time ciprofloxacin (From Cipro) Allergy Severe Unresponsiv Verified 10/27/24 07:02 e codeine Allergy Severe ALGY-Anaphy Verified 10/27/24 07:02 laxis lidocaine Allergy Severe ALGY-Swell Verified 10/27/24 07:02 Lip/Tongue/Throat morphine Allergy Severe ALGY-Anaphy Verified 10/27/24 07:02 laxis Penicillins Allergy Severe ALGY-Swell Verified 10/27/24 07:02 Lip/Tongue/Throat procaine (From Novocain) Allergy Severe ALGY-Swell Verified 10/27/24 07:02 Lip/Tongue/Throat prochlorperazine (From Allergy Severe ALGY-Swell Verified 10/27/24 07:02 Compazine) Lip/Tongue/Throat adhesive tape Allergy Unknown Unknown Verified 10/27/24 07:02 Sulfa (Sulfonamide Allergy Unknown Unknown Verified 10/27/24 07:02 Antibiotics) methocarbamol Allergy ALGY-Redness Verified 10/27/24 07:02 of Skin PFSH Acute PFSH: Medical History Head injury due to trauma Concussion Neck pain Liver mass on CT 05/19 and LDCT 08/18; US 09/18 shows it is simple cyst Mixed dyslipidemia COPD (chronic obstructive pulmonary disease) Polyneuropathy associated with underlying disease CAD (coronary artery disease) one stent Type 2 diabetes mellitus Screening for lung cancer LDCT ordered for 09/18 Nicotine dependence, cigarettes, with other nicotine-induced disorders Psychiatric care Claudication Essential hypertension Neutrophilic leukocytosis Myocardial infarction acute 09/2019 Depression sees psychiatry Surgical History Hx of bilateral cataract extraction History of bladder surgery [facility]. Home Hx of cervical spine surgery X 2; one done at [facility], one done at [facility]. Home History of 3 sections S/P DONNA-BSO done b/c of ruptured uterus; no cancer History of incisional hernia repair Status post colonoscopy 8.9.23 OZH--tubular adenoma and other polyps--repeat 3 yrs S/P cardiac cath one stent History of appendectomy H/O exploratory laparotomy Multiple bowel resections--3 X--done b/c of adhesions/blockages S/P cholecystectomy Family History Mother Breast cancer Sister Breast cancer Sister Breast cancer Brother Brain cancer Brother CAD (coronary artery disease) Social History Smoking and tobacco/nicotine status: current every day tobacco/nicotine user cigarettes Packs smoked per day: 0.5 [ Other cigarette details: started age 13] Alcohol intake: current Alcohol intake frequency: holidays/special occasions only Substance/Drug Use: never Household members: spouse and other Details: daughter, son in law and 2 grandkids Marital status: Number of children: 2 Highest education level completed: Bachelor's Degree Current occupational status: retired 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 Reproductive History: Spontaneous abortions: No Vitals/I&O/Wt Last Vital Signs Temp 98.3 F 10/27/24 08:00 Pulse 79 10/27/24 08:00 Resp 18 10/27/24 08:00 BP 115/80 10/27/24 08:00 Pulse Ox 93 10/27/24 08:00 O2 Del Method Nasal Cannula 10/27/24 08:00 O2 Flow Rate 2 10/27/24 08:00 10/26/24 10/27/24 10/27/24 22:59 06:59 14:59 Output Total 250 / 250 Balance -250 / -250 Weight last 48 hrs Weight 52.617 kg Physical Exam Narrative: Generally patient is very uncomfortable because of right femoral neck fracture Responding somewhat to pain medication HEENT-normocephalic/atraumatic no head trauma Neck neck is supple Cardiovascular heart rate 80s regular Chest lungs are clear Abdomen is soft nontender nondistended has good bowel sounds unremarkable Extremities and intact good pulses skin warm to touch except for the right lateral region of the thigh because of for fracture with pain and tenderness Neurology has no focality Urinary Catheter Management: Boogie: Cath Placed During This Visit: yes Reason for Continuing Indwelling Catheter: Required Immobilization for Trauma or Surgery or Anesthesia Urinary Catheter Date of Insertion: 10/27/24 Urinary Catheter Time of Insertion: 00:00 Data 10/26/24 21:15 10/26/24 21:15 A&P Assessment and plan (1) Closed fracture of neck of right femur: - Neck femoral fracture of the right hip - Orthopedics aware about the patient and will be seeing the patient on consultation - Continue pain management Plan Status post fall mechanically by the dog tripping on her PDMP PDMP Reviewed: Not Reviewed Attestations Medical Necessity Statement*: Patient had a hip fracture and need to be repaired and this admit patient inpatient for hip repair. Patient needs at this minimum of 2 midnights Coding Level of Care Code 44500 Diagnoses Closed fracture of neck of right femur S72.001A Encounter type: initial encounter Time Spent (min) 60
--- NOTE | 2024-10-27 10:58 | CT_ITS ---
WS: [id number] CT HEAD TECHNIQUE: Noncontrast CT of the head obtained from the skullbase to the vertex. CLINICAL INFORMATION: ams COMPARISON: 2024 DLP: 1198.[address] scans at [facility] use at least one of these dose optimization techniques: automated exposure control; mA and/or kV adjustment per patient size (includes targeted exams where dose is matched to clinical indication); or iterative reconstruction. FINDINGS: No evidence of intracranial hemorrhage or mass effect. Ventricular system and basal cisterns are patent. Moderate small vessel changes with moderate parenchymal volume loss. No extra-axial fluid collections. No evidence of mass or mass effect. Vascular calcification Paranasal sinuses and mastoid air cells are well aerated. .Normal visualized soft tissues. CT/CT head wo con* [id number] IMPRESSION: 1. No evidence of intracranial hemorrhage or mass effect. 2. No acute intracranial findings.
--- NOTE | 2024-10-27 10:58 | CT_ITS ---
WS: [id number] CT CERVICAL TRAUMA TECHNIQUE: Noncontrast CT of the cervical spine with coronal and sagittal reformatted images. CLINICAL INFORMATION: fall, pain COMPARISON: 10/12/2024 DLP: 1198.[address] scans at [facility] use at least one of these dose optimization techniques: automated exposure control; mA and/or kV adjustment per patient size (includes targeted exams where dose is matched to clinical indication); or iterative reconstruction. FINDINGS: Some images degraded by beam hardening artifact from the fusion hardware ACDF C4-C7 with corpectomy C5 and C6. Intervening strut graft at C5-6. No evidence of hardware loosening. Normal anterior fixation screws. Anterior fixation plate appears intact. Normal C1-C2 articulation. Dens is normal in appearance. Normal C1 ring. Severe bilateral bony foraminal narrowing C5-C6 and C6-C7. Normal prevertebral soft tissues. Mastoids air cells are well aerated. Normal prevertebral soft tissues. Mastoids air cells are well aerated. CT/CT cervical spin wo con* [id number] IMPRESSION: No evidence of acute fracture or dislocation.
--- NOTE | 2024-10-27 12:00 | PM.CONSULT ---
Providers/Reason For Consult Consulting Physician/Specialty*: Jose Pizarro MD Orthopedic Reason for Consult*: Fracture of the Attending Physician: Og Garcia MD Primary Care Provider: Tiny Graff MD History of Present Illness History of Present Illness Yessi Schulte is a 64 year old female Review of Systems Narrative: System review upon 10 organ review is significant for musculoskeletal with femur on neck fracture. Eyes: Denies: change in vision, blurry vision, photophobia, eye discharge, floaters or seeing flashes ENMT: Denies: throat pain, odynophagia, ear or mastoid pain, ear discharge, nasal discharge, epistaxis or sinus pain Card: Denies: chest pain, palpitations, lightheadedness, syncope or pre-syncope Resp: Denies: dyspnea or pain on inspiration GI: Denies: abdominal pain : Denies: flank pain or hematuria Musc: Reports: joint pain (R hip) and limited range of motion; Denies: neck pain, back pain, extremity pain, extremity swelling, joint swelling, joint redness, joint warmth or joint stiffness Neuro: Reports: difficulty walking (due to R hip pain); Denies: headache(s), numbness in extremities, weakness in extremities, sensory changes or dizziness All/Imm: Denies: acute wheezing Medications/Allergies Home Medications ?Medication ?Instructions ?Recorded ?Confirmed ?Last Taken ?Type aspirin 81 mg tablet,delayed 81 mg PO DAILY #90 tabs 02/25/23 10/28/24 10/26/24 Rx release epinephrine 0.3 mg/0.3 mL 0.3 mg (0.3 mL) IM Q4H PRN 10/30/23 10/28/24 Unknown Rx injection, auto-injector (EpiPen anaphylaxis #2 ea 2-Redd) clopidogrel 75 mg tablet 75 mg PO DAILY #90 tabs 03/31/24 10/28/24 10/26/24 Rx ipratropium 0.5 mg-albuterol 3 mg 3 ml inhalation Q4H PRN wheezing 03/31/24 10/28/24 Unknown Rx (2.5 mg base)/3 mL nebulization #180 mL soln nitroglycerin 0.4 mg sublingual 0.4 mg sublingual Q5M PRN Chest 03/31/24 10/28/24 Unknown Rx tablet (Nitrostat) Pain #20 tabs [id number]-[id number] 1 cap PO TID #90 caps 04/09/24 10/28/24 05/24/24 Rx 3,000-9,500-15,000 unit capsule, delayed rel (Creon) metoprolol tartrate 25 mg tablet 12.5 mg PO BID 05/25/24 10/28/24 05/24/24 History isosorbide mononitrate 60 mg 60 mg PO BID #180 tabs 06/04/24 10/28/24 10/26/24 Rx tablet,extended release 24 hr buspirone 15 mg tablet 15 mg PO BID #60 tabs 06/12/24 10/28/24 10/26/24 Rx sertraline 100 mg tablet (Zoloft) 100 mg PO DAILY #30 tabs 06/12/24 10/28/24 10/26/24 Rx trazodone 100 mg tablet 200 mg (2 x 100 mg) PO .HS PRN 06/12/24 10/28/24 Unknown Rx insomnia #60 tabs 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 sensor (FreeStyle #2 ea 07/28/24 10/28/24 Unknown Rx Selwyn 3 Sensor device) 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,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,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 #1 ea 07/28/24 10/28/24 Unknown Rx (FreeStyle [place] 3 Egan) pen needle, diabetic 32 gauge x #100 ea 09/10/24 10/28/24 Unknown Rx 5/32 (TechLITE Pen Needle) clonazepam 0.5 mg tablet 0.5 mg PO BID #60 tabs 10/15/24 10/28/24 10/26/24 Rx insulin glargine 100 unit/mL (3 10 unit (0.1 mL) SUBCUT QPM #15 mL 10/21/24 10/28/24 10/26/24 Rx mL) subcutaneous pen (Lantus Solostar U-100 Insulin) cephalexin 500 mg capsule 500 mg PO TID 10/28/24 10/28/24 Unknown History gabapentin 600 mg tablet 600 mg PO TID 10/28/24 10/28/24 10/26/24 History olanzapine 7.5 mg tablet 7.5 mg PO DAILY 10/28/24 10/28/24 Unknown History pantoprazole 40 mg tablet,delayed 40 mg PO DAILY 10/28/24 10/28/2410/26/25 History release prazosin 5 mg capsule 5 mg PO QPM 10/28/24 10/28/24 10/25/24 History albuterol sulfate 90 mcg/actuation 2 puff inhalation QID PRN 10/29/24 Unknown Rx aerosol inhaler Shortness Of Breath #8.5 grams Allergies Allergy/AdvReac Type Severity Reaction Status Date / Time ciprofloxacin (From Cipro) Allergy Severe Unresponsiv Verified 10/27/24 07:02 e codeine Allergy Severe ALGY-Anaphy Verified 10/27/24 07:02 laxis lidocaine Allergy Severe ALGY-Swell Verified 10/27/24 07:02 Lip/Tongue/Throat morphine Allergy Severe ALGY-Anaphy Verified 10/27/24 07:02 laxis Penicillins Allergy Severe ALGY-Swell Verified 10/27/24 07:02 Lip/Tongue/Throat procaine (From Novocain) Allergy Severe ALGY-Swell Verified 10/27/24 07:02 Lip/Tongue/Throat prochlorperazine (From Allergy Severe ALGY-Swell Verified 10/27/24 07:02 Compazine) Lip/Tongue/Throat adhesive tape Allergy Unknown Unknown Verified 10/27/24 07:02 Sulfa (Sulfonamide Allergy Unknown Unknown Verified 10/27/24 07:02 Antibiotics) methocarbamol Allergy ALGY-Redness Verified 10/27/24 07:02 of Skin Current Medications Generic Name Dose Route Start Last Admin Trade Name Freq PRN Reason Stop Dose Admin Albuterol/Ipratropium 3 ml 10/28/24 08:00 10/29/24 09:01 Ipratropium-Albuterol 3 Ml Neb INHALATION 3 ml TID.RESP ISABELLA Administration Amlodipine Besylate 5 mg 10/27/24 09:00 10/29/24 07:44 Amlodipine 5 Mg Tablet PO 5 mg DAILY ISABELLA Administration Aspirin 81 mg 10/27/24 12:30 10/29/24 07:43 Aspirin 81 Mg Ec Tablet PO 81 mg DAILY ISABELLA Administration Atorvastatin Calcium 20 mg 10/27/24 21:00 10/28/24 21:21 Atorvastatin 10 Mg Tablet PO 20 mg BEDTIME ISABELLA Administration Buspirone HCl 15 mg 10/27/24 09:00 10/29/24 07:42 Buspirone 10 Mg Tablet PO 15 mg BID ISABELLA Administration Docusate Sodium 100 mg 10/27/24 09:00 10/29/24 07:42 Docusate Sodium 100 Mg Capsule PO 100 mg BID ISABELLA Administration Enoxaparin Sodium 40 mg 10/27/24 12:30 10/28/24 11:24 Enoxaparin 40 Mg/0.4 Ml Syringe SUBCUT 10/29/24 13:00 40 mg Q24H ISABELLA Administration Gabapentin 600 mg 10/27/24 09:00 10/29/24 07:43 Gabapentin 300 Mg Capsule PO 600 mg TID ISABELLA Administration Hydromorphone HCl 1 mg 10/28/24 12:12 10/29/24 07:37 Hydromorphone 0.5 Mg/0.5 Ml Inj IVP 1 mg Q3H PRN Administration PAIN Insulin Human Lispro 0 unit 10/27/24 18:16 10/29/24 07:02 Insulin Lispro 100 Unit/1 Ml SUBCUT Not Given TIDWM ISABELLA Protocol Pantoprazole Sodium 40 mg 10/27/24 09:00 10/29/24 07:[address] 40 Mg Tablet PO 40 mg DAILY ISABELLA Administration Prednisone 40 mg 10/29/24 09:00 10/29/24 07:43 Prednisone 20 Mg Tablet PO 40 mg DAILY ISABELLA Administration Senna 17.2 mg 10/27/24 21:00 10/28/24 21:21 Sennosides 8.6 Mg Tablet PO 17.2 mg BEDTIME ISABELLA Administration Sertraline HCl 100 mg 10/27/24 09:00 10/29/24 07:43 Sertraline 100 Mg Tablet PO 100 mg DAILY ISABELLA Administration PFSH Acute PFSH: Medical History Head injury due to trauma Concussion Neck pain Liver mass on CT 05/19 and LDCT 08/18; US 09/18 shows it is simple cyst Mixed dyslipidemia COPD (chronic obstructive pulmonary disease) Polyneuropathy associated with underlying disease CAD (coronary artery disease) one stent Type 2 diabetes mellitus Screening for lung cancer LDCT ordered for 09/18 Nicotine dependence, cigarettes, with other nicotine-induced disorders Psychiatric care Claudication Essential hypertension Neutrophilic leukocytosis Myocardial infarction acute 09/2019 Depression sees psychiatry Surgical History Hx of bilateral cataract extraction History of bladder surgery [facility]ality urology Mtn. Home Hx of cervical spine surgery X 2; one done at [facility], one done at [facility]. Home History of 3 sections S/P DONNA-BSO done b/c of ruptured uterus; no cancer History of incisional hernia repair Status post colonoscopy 8.9.23 O[facility]--tubular adenoma and other polyps--repeat 3 yrs S/P cardiac cath one stent History of appendectomy H/O exploratory laparotomy Multiple bowel resections--3 X--done b/c of adhesions/blockages S/P cholecystectomy Family History Mother Breast cancer Sister Breast cancer Sister Breast cancer Brother Brain cancer Brother CAD (coronary artery disease) Social History Smoking and tobacco/nicotine status: current every day tobacco/nicotine user cigarettes Packs smoked per day: 0.5 [ Other cigarette details: started age 13] Alcohol intake: current Alcohol intake frequency: holidays/special occasions only Substance/Drug Use: never Household members: spouse and other Details: daughter, son in law and 2 grandkids Marital status: Number of children: 2 Highest education level completed: Bachelor's Degree Current occupational status: retired Previous occupational history: [employer] Female Reproductive History: Spontaneous abortions: No Dietary Habits: Current diet type/program: regular Caffeine: Yes Vitals/I&O/Wt Last Vital Signs Temp 99.6 F 10/29/24 08:11 Pulse 110 H 10/29/24 09:01 Resp 18 10/29/24 09:01 BP 124/78 10/29/24 08:11 Pulse Ox 84 L 10/29/24 09:01 O2 Del Method Room Air 10/29/24 09:01 O2 Flow Rate 2 10/29/24 03:57 Physical Exam Narrative: On exam today patient is laying in bed in a moderate amount of distress. She has pain to palpation anywhere about her right hip. She does flex it up on her own to try and find a comfortable position. She does not care for any manipulation right hip Urinary Catheter Management: Boogie: Cath Placed During This Visit: yes Reason for Continuing Indwelling Catheter: Other Urinary Catheter Date of Insertion: 10/27/24 Urinary Catheter Time of Insertion: 00:00 Data 10/29/24 05:48 10/29/24 05:48 A&P Assessment and plan (1) Closed fracture of neck of right femur: Right femoral neck fracture impacted and displaced Plan Plan at this time is for endoprosthetic replacement of the right hip. I have discussed the patient's x-ray findings and the fact that she has a fractured hip. I have offered her an endoprosthetic replacement of this and described the procedure to her. I have discussed all risk benefits and treatment alternatives at this time and they wish to proceed with surgical intervention. They are understanding that since she is on Plavix that we need to wait anywhere from 4 to 5 days before surgical intervention therefore at this time planning on surgery on 10/30/2024 PDMP PDMP Reviewed: Not Reviewed Coding Level of Care Code Acute Code for Chg Fwd Diagnoses Closed fracture of neck of right femur S72.001A Encounter type: initial encounter
--- NOTE | 2024-10-27 12:02 | PC.NURSE ---
1045: Dr. Garcia to bedside to assess patient. Discussed last dose of dilaudid was at 0959. Received order for one dose dilaudid IVP 0.5 mg now. Received order for head CT scan. 1154: Call placed to Dr. Garcia. This nurse reported that patient's RR dropped to 14 and O2 dropped to 88% after dilaudid administration, but came back up shortly after. Reported that patient is wheezing. Dr. Garcia states patient was wheezing when he assessed her also. Received orders for RT consult for breathing treatment.
--- NOTE | 2024-10-27 12:24 | P.PN_ITS ---
Vitals/I&O/Wt Last Vital Signs Temp 97.8 F 10/27/24 12:00 Pulse 77 10/27/24 12:00 Resp 14 10/27/24 12:00 BP 103/71 10/27/24 12:00 Pulse Ox 91 10/27/24 12:00 O2 Del Method Nasal Cannula 10/27/24 12:00 O2 Flow Rate 2 10/27/24 12:00 10/26/24 10/27/24 10/27/24 22:59 06:59 14:59 Output Total 250 / 250 Balance -250 / -250 Weight last 48 hrs Weight 52.617 kg Physical Exam 2 Const: COMMON NORMALS: no acute distress and patient oriented x3 Resp: COMMON NORMALS: normal respiratory effort, No retractions, No use of accessory muscles and clear to auscultation bilaterally AUSCULTATION: clear to auscultation bilaterally Cardio: COMMON NORMALS: regular rate, regular rhythm, S1 normal heart sound present and S2 normal heart sound present RATE: regular rate RHYTHM: r egular rhythm HEART SOUNDS: S1 normal heart sound present and S2 normal heart sound present GI: COMMON NORMALS: Normal to inspection, nondistended, normoactive bowel sounds present and non-tender Extremity: COMMON NORMALS: no pedal edema Neuro: COMMON NORMALS: patient oriented x3 Psych: COMMON NORMALS: mental status grossly normal Urinary Catheter Management: Boogie: Cath Placed During This Visit: yes Reason for Continuing Indwelling Catheter: Required Immobilization for Trauma or Surgery or Anesthesia Urinary Catheter Date of Insertion: 10/27/24 Urinary Catheter Time of Insertion: 00:00 Data 10/26/24 21:15 10/26/24 21:15 A&P Assessment and plan (1) Closed fracture of neck of right femur: (2) COPD exacerbation: (3) Type 2 diabetes mellitus: (4) CAD (coronary artery disease): (5) Mixed dyslipidemia: Plan COPD exacerbation - Solu-Medrol 40 IV every 8 hours - DuoNeb CAD - Vasospasm versus, patent prior stent - RCA status post stenting, IFR LAD nonischemic Right hip fracture - Orthopedic has been consulted - On aspirin, Plavix -Will hold Plavix - Continue gabapentin Type 2 diabetes mellitus, low-dose insulin sliding scale Had a fall about a week ago, will do CT head, CT neck Full code Lovenox for due to bolus PDMP PDMP Reviewed: Not Reviewed Attestations 2 Medical Necessity Statement*: Patient requires hospitalization for COPD exacerbation, right hip fracture Diagnoses Closed fracture of neck of right femur S72.001A Encounter type: initial encounter COPD exacerbation J44.1 Type 2 diabetes mellitus with hyperglycemia, with long-term current use of insulin E11.65; Z79.4 Diabetes mellitus complication status: with hyperglycemia 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 transplanted heart: [place] heart Mixed dyslipidemia E78.2
[2024-10-27 12:54] LABS: Basophils % 0.1 %; Eosinophils # 0.1 10^3/uL (0.0-0.8); Eosinophils % 1.4 %; Hematocrit 36.3 % (36-47); Lymphocytes # 1.8 10^3/uL (0.8-4.8); Lymphocytes % 26.4 %; Mean Corpuscular Hemoglobin 29.1 pg (27-33); Mean Corpuscular Volume 91.2 fl (85-98); Mean Platelet Volume 8.3 fL (7.4-10.4); Monocytes # 0.6 10^3/uL (0.2-0.9); Monocytes % 8.5 %; Neutrophils # 4.42 10^3/uL (1.8-7.7); Neutrophils % 63.3 %; Nucleated Red Blood Cells % 0 %; Platelet Count 264 10^3/cmm (157-399); Red Blood Count 3.98 10^6/uL (3.85-5.65); Red Cell Distribution Width 14.7 % (12.1-15.1); White Blood Count 6.98 10^3/uL (3.29-11.43)
[2024-10-27 13:08] LABS: INR 0.97 (0.8-1.2)
[2024-10-27] MEDS: methylPREDNISolone sod succ 40 mg/mL INJ IVP ×2 (13:11→19:59)
[2024-10-27 13:13] LABS: Alanine Aminotransferase 18 U/L (0-33); Albumin Level 3.7 g/dL (3.5-5.2); Alkaline Phosphatase 63 U/L (35-105); Anion Gap 15.9 (5-19); Aspartate Amino Transferase 16 U/L (0-32); Blood Urea Nitrogen 10 mg/dL (8-23); Calcium 8.6 mg/dL (8.5-10.5); Carbon Dioxide 24 mmol/L (22-29); Chloride 103 mmol/L (98-107); Creatinine Clr Calc Pharmacy 55.0362; Globulin 3.1 g/dL (1.3-4.6); Glomerular Filtration Rate 100.3 mL/min (90-130); Glucose 111 mg/dL (65-115); Osmolality Calculated 288 mOsm/kg (285-295); Potassium 3.9 mmol/L (3.5-5.1); Sodium 139 mmol/L (136-145); Total Bilirubin 0.5 mg/dL (0.15-1.2); Total Protein 6.8 g/dL (6.6-8.7)
[2024-10-27] MEDS: ipratropium-albuterol 3 mL Neb INHALATION ×3 (13:18→19:48)
[2024-10-27] MEDS: enoxaparin 40 mg/0.4 mL Syringe SUBCUT (13:44)
[2024-10-27] MEDS: aspirin 81 mg EC Tablet PO (13:45)
[2024-10-27 17:59] LABS: Glucose Point of Care 226 mg/dL (70-110)
[2024-10-27] MEDS: insulin lispro 100 unit/1 mL SUBCUT (18:34)
[2024-10-27] MEDS: ATORVASTATIN 10 MG TABLET 20 MG PO (20:00)
[2024-10-27] MEDS: sennosides 8.6 mg Tablet 17.2 MG PO (20:00)
[2024-10-27 20:50] LABS: Glucose Point of Care 183 mg/dL (70-110)
[2024-10-27 23:42] LABS: Estmated Average Glucose 137; Hemoglobin A1C 6.4 % (4.0-6.0)
[2024-10-28] VITALS (15 sets, daily range): BP systolic 95–135; BP diastolic 63–83; PULSE 80–99; RESP 16–19; TEMP 36.6–36.9; O2SAT 92–97
[2024-10-28] MEDS: ipratropium-albuterol 3 mL Neb INHALATION ×5 (00:03→19:46)
[2024-10-28] MEDS: HYDROmorphone 0.5 MG/0.5 ML INJ IVP ×5 (00:18→11:29)
[2024-10-28] MEDS: methylPREDNISolone sod succ 40 mg/mL INJ IVP ×2 (03:11→11:24)
[2024-10-28 06:15] LABS: Basophils % 0.1 %; Hematocrit 37.3 % (36-47); Lymphocytes # 0.8 10^3/uL (0.8-4.8); Lymphocytes % 8.5 %; Mean Corpuscular HGB Conc 32.7 g/dL (30-55); Mean Corpuscular Volume 88.8 fl (85-98); Mean Platelet Volume 8.8 fL (7.4-10.4); Monocytes # 0.3 10^3/uL (0.2-0.9); Monocytes % 2.8 %; Neutrophils # 7.81 10^3/uL (1.8-7.7); Nucleated Red Blood Cells % 0 %; Platelet Count 277 10^3/cmm (157-399); Red Cell Distribution Width 14.2 % (12.1-15.1); White Blood Count 8.87 10^3/uL (3.29-11.43)
[2024-10-28 06:17] LABS: Glucose Point of Care 248 mg/dL (70-110)
[2024-10-28 06:30] LABS: Blood Urea Nitrogen 10 mg/dL (8-23); Calcium 9.1 mg/dL (8.5-10.5); Carbon Dioxide 18 mmol/L (22-29); Chloride 102 mmol/L (98-107); Creatinine Clr Calc Pharmacy 55.0362; Glomerular Filtration Rate 100.3 mL/min (90-130); Glucose 211 mg/dL (65-115); Osmolality Calculated 287 mOsm/kg (285-295); Sodium 136 mmol/L (136-145)
[2024-10-28 06:37] LABS: Anion Gap 20.2 (5-19); Potassium 4.2 mmol/L (3.5-5.1)
[2024-10-28] MEDS: sertraline 100 mg Tablet PO (07:48)
[2024-10-28] MEDS: amlodipine 5 mg Tablet PO (07:49)
[2024-10-28] MEDS: aspirin 81 mg EC Tablet PO (07:49)
[2024-10-28] MEDS: BuSPIRONE 10 mg Tablet 15 MG PO ×2 (07:49→17:27)
[2024-10-28] MEDS: gabapentin 300 mg Capsule 600 MG PO ×3 (07:49→21:21)
[2024-10-28] MEDS: insulin lispro 100 unit/1 mL SUBCUT ×3 (07:49→17:27)
[2024-10-28] MEDS: pantoprazole DR 40 mg Tablet PO (08:16)
[2024-10-28] MEDS: docusate sodium 100 mg Capsule PO ×2 (08:16→17:27)
--- NOTE | 2024-10-28 09:23 | PC.PHAR ---
Pt put spouse on the phone to verify current medications. Several medications were over 90 days past refilling, so I spoke to [facility]. The following medications were removed from med list: Amlodipine 5mg daily 04/15/24 30ds Atorvastatin 20mg at bedtime 04/15/24 30ds Hydroxyzine Hcl 50mg tid 04/28/24 30ds Pt has Metoprolol Tart. 25mg-12.5 mg bid 04/28/25 30ds and Metoprolol Succ. ER 25mg bid 04/18/25 (on hold, never picked up.) Left Metoprolol Tart 25mg-12.5mg bid, on the chart because spouse states she should be taking.
--- NOTE | 2024-10-28 10:27 | PC.SOCIAL ---
IMM Update pg 2 of IMM Updated and reviewed w/ patient. Copy provided. Copy dated, initialed and placed in chart.
[2024-10-28 11:00] LABS: Glucose Point of Care 237 mg/dL (70-110)
[2024-10-28] MEDS: enoxaparin 40 mg/0.4 mL Syringe SUBCUT (11:24)
--- NOTE | 2024-10-28 11:56 | XR_ITS ---
WS: [id number] XR chest 1V portable [id number] REASON FOR EXAM: sob FINDINGS: Compared to the examination of 10/26/2024 vaguely defined increased opacity in the lower lungs. This may be due to suboptimal inspiratory effort. Developing pneumonitis cannot be readily excluded. Follow-up examination with better inspiration recommended as clinically warranted. The chest is otherwise unchanged compared to the previous study. XR/XR chest 1V portable [id number] IMPRESSION: Potential interval abnormality, equivocal, with recommendation as above.
--- NOTE | 2024-10-28 12:09 | PC.NURSE ---
this nurse was told verbally from Dr diaz that he was increasing patient Dilaudid from 0.5mg to 1 mg. physician stated to give a 0.5mg dose at this time to equal the 1 mg dose.
[2024-10-28] MEDS: HYDROmorphone 0.5 MG/0.5 ML INJ 1 MG IVP ×3 (14:29→21:21)
[2024-10-28 16:16] LABS: Glucose Point of Care 193 mg/dL (70-110)
--- NOTE | 2024-10-28 16:34 | P.PN_ITS ---
Subjective 2 Subjective: Patient was seen this morning, currently alert oriented x 3, following all commands, she does have significant right hip pain, her pain persists despite getting Dilaudid 0.5 every 3 hours as needed, discussed increasing to 1 mg every 3 hours as needed, she is in agreement her surgical intervention has been delayed until Saturday Vitals/I&O/Wt Last Vital Signs Temp 98.4 F 10/28/24 16:30 Pulse 92 10/28/24 16:30 Resp 17 10/28/24 16:30 BP 111/67 10/28/24 16:30 Pulse Ox 92 10/28/24 16:30 O2 Del Method Nasal Cannula 10/28/24 16:30 O2 Flow Rate 2 10/28/24 15:28 10/28/24 10/28/24 10/28/24 06:59 14:59 22:59 Intake Total 120 / 120 Output Total 500 / 500 Balance -380 / -380 Weight last 48 hrs Weight 52.617 kg Physical Exam 2 Const: COMMON NORMALS: no acute distress and patient oriented x3 Resp: COMMON NORMALS: normal respiratory effort, No retractions, No use of accessory muscles and clear to auscultation bilaterally AUSCULTATION: clear to auscultation bilaterally Cardio: COMMON NORMALS: regular rate, regular rhythm, S1 normal heart sound present and S2 normal heart sound present RATE: regular rate RHYTHM: r egular rhythm HEART SOUNDS: S1 normal heart sound present and S2 normal heart sound present GI: COMMON NORMALS: Normal to inspection, nondistended, normoactive bowel sounds present and non-tender Extremity: COMMON NORMALS: no pedal edema NARRATIVE EXTREMITY EXAM: Has DP PT pulses, Neuro: COMMON NORMALS: patient oriented x3 Psych: COMMON NORMALS: mental status grossly normal Urinary Catheter Management: Boogie: Cath Placed During This Visit: yes Reason for Continuing Indwelling Catheter: Perioperative Use in Selected Surgeries Urinary Catheter Date of Insertion: 10/27/24 Urinary Catheter Time of Insertion: 00:00 Data 10/28/24 04:54 10/28/24 04:54 A&P Assessment and plan (1) Closed fracture of neck of right femur: (2) COPD exacerbation: (3) Type 2 diabetes mellitus: (4) CAD (coronary artery disease): (5) Mixed dyslipidemia: Plan COPD exacerbation - De-escalate to prednisone 40 mg daily - DuoNeb CAD - History of cardiac cath in 2022 - RCA status post stenting, IFR LAD nonischemic Right hip fracture - Orthopedic has been consulted - On aspirin, Plavix -Will hold Plavix - Continue gabapentin - Plan surgical intervention on Saturday Type 2 diabetes mellitus, low-dose insulin sliding scale Had a fall about a week ago, will do CT head, CT neck no acute findings Full code Lovenox for DVT prophylaxis, will hold after PDMP PDMP Reviewed: Not Reviewed Attestations 2 Medical Necessity Statement*: Patient requires hospitalization for COPD, right hip fracture Diagnoses Closed fracture of neck of right femur S72.001A Encounter type: initial encounter COPD exacerbation J44.1 Type 2 diabetes mellitus with hyperglycemia, with long-term current use of insulin E11.65; Z79.4 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 transplanted heart: [place] heart Associated angina: with stable angina Mixed dyslipidemia E78.2
[2024-10-28 20:40] LABS: Glucose Point of Care 157 mg/dL (70-110)
[2024-10-28] MEDS: ATORVASTATIN 10 MG TABLET 20 MG PO (21:21)
[2024-10-28] MEDS: sennosides 8.6 mg Tablet 17.2 MG PO (21:21)
[2024-10-29] VITALS (11 sets, daily range): BP systolic 97–136; BP diastolic 65–78; PULSE 84–110; RESP 17–19; TEMP 36.4–37.6; O2SAT 84–97
[2024-10-29] MEDS: HYDROmorphone 0.5 MG/0.5 ML INJ 1 MG IVP ×7 (00:28→21:50)
[2024-10-29 06:19] LABS: Glucose Point of Care 136 mg/dL (70-110)
[2024-10-29 06:40] LABS: Basophils % 0.2 %; Eosinophils % 0.1 %; Hematocrit 36.5 % (36-47); Lymphocytes # 2.6 10^3/uL (0.8-4.8); Mean Corpuscular HGB Conc 32.6 g/dL (30-55); Mean Corpuscular Volume 88.8 fl (85-98); Mean Platelet Volume 8.7 fL (7.4-10.4); Monocytes # 0.9 10^3/uL (0.2-0.9); Neutrophils # 8.86 10^3/uL (1.8-7.7); Neutrophils % 71.3 %; Nucleated Red Blood Cells % 0 %; Platelet Count 309 10^3/cmm (157-399); Red Blood Count 4.11 10^6/uL (3.85-5.65); Red Cell Distribution Width 14.4 % (12.1-15.1); White Blood Count 12.41 10^3/uL (3.29-11.43)
[2024-10-29 06:59] LABS: Anion Gap 14.9 (5-19); Blood Urea Nitrogen 11 mg/dL (8-23); Calcium 9.4 mg/dL (8.5-10.5); Carbon Dioxide 28 mmol/L (22-29); Chloride 100 mmol/L (98-107); Creatinine Clr Calc Pharmacy 55.0362; Glucose 121 mg/dL (65-115); Osmolality Calculated 289 mOsm/kg (285-295); Potassium 3.9 mmol/L (3.5-5.1); Sodium 139 mmol/L (136-145)
[2024-10-29] MEDS: docusate sodium 100 mg Capsule PO ×2 (07:42→17:35)
[2024-10-29] MEDS: BuSPIRONE 10 mg Tablet 15 MG PO ×2 (07:42→17:34)
[2024-10-29] MEDS: pantoprazole DR 40 mg Tablet PO (07:42)
[2024-10-29] MEDS: aspirin 81 mg EC Tablet PO (07:43)
[2024-10-29] MEDS: predniSONE 20 mg Tablet 40 MG PO (07:43)
[2024-10-29] MEDS: sertraline 100 mg Tablet PO (07:43)
[2024-10-29] MEDS: gabapentin 300 mg Capsule 600 MG PO ×3 (07:43→20:39)
[2024-10-29] MEDS: amlodipine 5 mg Tablet PO (07:44)
[2024-10-29] MEDS: ipratropium-albuterol 3 mL Neb INHALATION ×3 (09:01→19:42)
[2024-10-29 10:53] LABS: Glucose Point of Care 219 mg/dL (70-110)
[2024-10-29] MEDS: enoxaparin 40 mg/0.4 mL Syringe SUBCUT (11:43)
[2024-10-29] MEDS: insulin lispro 100 unit/1 mL SUBCUT ×2 (11:43→17:34)
--- NOTE | 2024-10-29 15:39 | PM.PN ---
Subjective Subjective: Patient was seen this morning, currently alert oriented x 3, following all commands denies any fevers, no chills, no cough Vitals/I&O/Wt Last Vital Signs Temp 98.6 F 10/29/24 11:08 Pulse 94 10/29/24 14:42 Resp 18 10/29/24 14:42 BP 97/65 10/29/24 11:08 Pulse Ox 94 10/29/24 14:42 O2 Del Method Nasal Cannula 10/29/24 14:42 O2 Flow Rate 2 10/29/24 14:42 Physical Exam Const: COMMON NORMALS: no acute distress and patient oriented x3 Neck/C-Spine: COMMON NORMALS: no JVD Resp: COMMON NORMALS: normal respiratory effort, No retractions, No use of accessory muscles and clear to auscultation bilaterally AUSCULTATION: clear to auscultation bilaterally Cardio: COMMON NORMALS: no JVD, regular rate, regular rhythm, S1 normal heart sound present and S2 normal heart sound present RATE: regular rate RHYTHM: regular rhythm HEART SOUNDS: S1 normal heart sound present and S2 normal heart sound present GI: COMMON NORMALS: Normal to inspection, nondistended, normoactive bowel sounds present and non-tender Extremity: COMMON NORMALS: no pedal edema Neuro: COMMON NORMALS: patient oriented x3 Psych: COMMON NORMALS: mental status grossly normal Urinary Catheter Management: Boogie: Cath Placed During This Visit: yes Reason for Continuing Indwelling Catheter: Other Urinary Catheter Date of Insertion: 10/27/24 Urinary Catheter Time of Insertion: 00:00 Data 10/29/24 05:48 10/29/24 05:48 A&P Assessment and plan (1) Closed fracture of neck of right femur: (2) COPD exacerbation: (3) Type 2 diabetes mellitus: (4) CAD (coronary artery disease): (5) Mixed dyslipidemia: Plan COPD exacerbation - De-escalate to prednisone 40 mg daily - DuoNeb CAD - History of cardiac cath in 2022 - RCA status post stenting, IFR LAD nonischemic Right hip fracture - Orthopedic has been consulted - On aspirin, Plavix -Will hold Plavix - Continue gabapentin - Plan surgical intervention on Saturday Type 2 diabetes mellitus, low-dose insulin sliding scale Had a fall about a week ago, will do CT head, CT neck no acute findings Full code Lovenox for DVT prophylaxis, will hold after , n.p.o. 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 transplanted heart: [place] heart Associated angina: with stable angina Mixed dyslipidemia E78.2
[2024-10-29 16:47] LABS: Glucose Point of Care 235 mg/dL (70-110)
[2024-10-29 20:31] LABS: Glucose Point of Care 241 mg/dL (70-110)
[2024-10-29] MEDS: sennosides 8.6 mg Tablet 17.2 MG PO (20:39)
[2024-10-29] MEDS: ATORVASTATIN 10 MG TABLET 20 MG PO (20:39)
[2024-10-29] MEDS: trazodone 100 mg Tablet 200 MG PO (20:41)
[2024-10-30] VITALS (28 sets, daily range): BP systolic 84–141; BP diastolic 58–97; PULSE 69–110; RESP 12–20; TEMP 36.4–37.3; O2SAT 90–98
[2024-10-30] MEDS: HYDROmorphone 0.5 MG/0.5 ML INJ 1 MG IVP ×3 (04:08→17:37)
[2024-10-30 05:21] LABS: Basophils % 0.2 %; Eosinophils % 0.1 %; Hematocrit 38.2 % (36-47); Lymphocytes # 2.4 10^3/uL (0.8-4.8); Lymphocytes % 23.2 %; Mean Corpuscular HGB Conc 32.5 g/dL (30-55); Mean Corpuscular Hemoglobin 28.9 pg (27-33); Mean Platelet Volume 8.5 fL (7.4-10.4); Monocytes # 0.9 10^3/uL (0.2-0.9); Monocytes % 8.4 %; Neutrophils # 6.99 10^3/uL (1.8-7.7); Neutrophils % 67.7 %; Nucleated Red Blood Cells % 0 %; Platelet Count 291 10^3/cmm (157-399); Red Blood Count 4.29 10^6/uL (3.85-5.65); Red Cell Distribution Width 14.3 % (12.1-15.1); White Blood Count 10.32 10^3/uL (3.29-11.43)
[2024-10-30 05:48] LABS: Blood Urea Nitrogen 10 mg/dL (8-23); Calcium 9.1 mg/dL (8.5-10.5); Carbon Dioxide 28 mmol/L (22-29); Chloride 96 mmol/L (98-107); Creatinine Clr Calc Pharmacy 55.0362; Glomerular Filtration Rate 100.3 mL/min (90-130); Glucose 145 mg/dL (65-115); Osmolality Calculated 284 mOsm/kg (285-295); Sodium 136 mmol/L (136-145)
[2024-10-30 06:34] LABS: Glucose Point of Care 176 mg/dL (70-110)
[2024-10-30] MEDS: ipratropium-albuterol 3 mL Neb INHALATION ×2 (08:22→20:48)
[2024-10-30] MEDS: LORazepam 1 MG/0.5 ML injection 0.5 MG IVP (09:28)
[2024-10-30] MEDS: insulin lispro 100 unit/1 mL SUBCUT ×2 (09:28→17:53)
[2024-10-30] MEDS: sertraline 100 mg Tablet PO (09:29)
[2024-10-30] MEDS: aspirin 81 mg EC Tablet PO (09:29)
[2024-10-30] MEDS: BuSPIRONE 10 mg Tablet 15 MG PO ×2 (09:29→17:54)
[2024-10-30] MEDS: gabapentin 300 mg Capsule 600 MG PO ×2 (09:29→21:21)
[2024-10-30] MEDS: docusate sodium 100 mg Capsule PO ×2 (09:30→17:54)
[2024-10-30] MEDS: pantoprazole DR 40 mg Tablet PO (09:30)
[2024-10-30] MEDS: predniSONE 20 mg Tablet 40 MG PO (09:30)
[2024-10-30] MEDS: amlodipine 5 mg Tablet PO (09:30)
--- NOTE | 2024-10-30 10:42 | PC.SOCIAL ---
IMM update pg 2 of IMM Updated and reviewed w/ patient. Copy provided. Copy dated, initialed and placed in chart.
[2024-10-30 11:43] LABS: Glucose Point of Care 159 mg/dL (70-110)
--- NOTE | 2024-10-30 13:02 | ANES.PREANE2 ---
Pre-Anesthetic Assessment Height/Weight: Height 1.55 m Weight 52.617 kg Temp Pulse Resp BP Pulse Ox O2 Del Method O2 Flow Rate 98.2 F 86 20 H 109/71 91 Nasal Cannula 2 10/30/24 12:25 10/30/24 12:25 10/30/24 12:25 10/30/24 12:25 10/30/24 12:25 10/30/24 12:10/30/24 12:25 Operation Date: 10/30/24 12:30 Proposed Procedures p Right hip endoprosthesis(Right) - Jose Pizarro MD Familial anesthetic complications: None Was Beta Anshul taken within 24 hours: N/A Was Clonidine taken within 24 hours: N/A Last intake: > 8 hrs Social Tobacco and No alcohol Exam alert, oriented x 3, clear to auscultation bilaterally and regular rate & rhythm Airway Mallampati: Class II Dentition: caps Pulmonary Asthma CV/HEM Stable Angina, Coronary Artery Disease, Hypertension and Myocardial Infarction (NSTEMI 2023 d/t vasospasm - RCA stent found to be patent) GI Gastroesophageal Reflux Disease Metabolic Diabetes Mellitus Anesthetic Plan ASA status: 4 Anesthesia: General Other: Plavix on saturday, plan for GETA Risk of > 500 ml blood loss (7ml/kg in children): No Medications/Allergies Home Medications ?Medication ?Instructions ?Recorded ?Confirmed ?Last Taken ?Type aspirin 81 mg tablet,delayed 81 mg PO DAILY #90 tabs 02/25/23 10/28/24 10/26/24 Rx release epinephrine 0.3 mg/0.3 mL 0.3 mg (0.3 mL) IM Q4H PRN 10/30/23 10/28/24 Unknown Rx injection, auto-injector (EpiPen anaphylaxis #2 ea 2-Redd) clopidogrel 75 mg tablet 75 mg PO DAILY #90 tabs 03/31/24 10/28/24 10/26/24 Rx ipratropium 0.5 mg-albuterol 3 mg 3 ml inhalation Q4H PRN wheezing 03/31/24 10/28/24 Unknown Rx (2.5 mg base)/3 mL nebulization #180 mL soln nitroglycerin 0.4 mg sublingual 0.4 mg sublingual Q5M PRN Chest 03/31/24 10/28/24 Unknown Rx tablet (Nitrostat) Pain #20 tabs [id number] 1 cap PO TID #90 caps 04/09/24 10/28/24 05/24/24 Rx 3,000-9,500-15,000 unit capsule, delayed rel (Creon) metoprolol tartrate 25 mg tablet 12.5 mg PO BID 05/25/24 10/28/24 05/24/24 History isosorbide mononitrate 60 mg 60 mg PO BID #180 tabs 06/04/24 10/28/24 10/26/24 Rx tablet,extended release 24 hr buspirone 15 mg tablet 15 mg PO BID #60 tabs 06/12/24 10/28/24 10/26/24 Rx sertraline 100 mg tablet (Zoloft) 100 mg PO DAILY #30 tabs 06/12/24 10/28/24 10/26/24 Rx trazodone 100 mg tablet 200 mg (2 x 100 mg) PO .HS PRN 06/12/24 10/28/24 Unknown Rx insomnia #60 tabs 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 sensor (FreeStyle #2 ea 07/28/24 10/28/24 Unknown Rx Selwyn 3 Sensor device) 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,waiter/waitress cocktail lounge,cont #1 ea 07/28/24 10/28/24 Unknown Rx (FreeStyle Sel[place] 3 Esparto) pen needle, diabetic 32 gauge x #100 ea 09/10/24 10/28/24 Unknown Rx 5/32 (TechLITE Pen Needle) clonazepam 0.5 mg tablet 0.5 mg PO BID #60 tabs 10/15/24 10/28/24 10/26/24 Rx insulin glargine 100 unit/mL (3 10 unit (0.1 mL) SUBCUT QPM #15 mL 10/21/24 10/28/24 10/26/24 Rx mL) subcutaneous pen (Lantus Solostar U-100 Insulin) cephalexin 500 mg capsule 500 mg PO TID 10/28/24 10/28/24 Unknown History gabapentin 600 mg tablet 600 mg PO TID 10/28/24 10/28/24 10/26/24 History olanzapine 7.5 mg tablet 7.5 mg PO DAILY 10/28/24 10/28/24 Unknown History pantoprazole 40 mg tablet,delayed 40 mg PO DAILY 10/28/24 10/28/24 10/26/24 History release prazosin 5 mg capsule 5 mg PO QPM 10/28/24 10/28/24 10/25/24 History albuterol sulfate 90 mcg/actuation 2 puff inhalation QID PRN 10/29/24 Unknown Rx aerosol inhaler Shortness Of Breath #8.5 grams Allergies Allergy/AdvReac Type Severity Reaction Status Date / Time ciprofloxacin (From Cipro) Allergy Severe Unresponsiv Verified 10/27/24 07:02 e codeine Allergy Severe ALGY-Anaphy Verified 10/27/24 07:02 laxis lidocaine Allergy Severe ALGY-Swell Verified 10/27/24 07:02 Lip/Tongue/Throat morphine Allergy Severe ALGY-Anaphy Verified 10/27/24 07:02 laxis Penicillins Allergy Severe ALGY-Swell Verified 10/27/24 07:02 Lip/Tongue/Throat procaine (From Novocain) Allergy Severe ALGY-Swell Verified 10/27/24 07:02 Lip/Tongue/Throat prochlorperazine (From Allergy Severe ALGY-Swell Verified 10/27/24 07:02 Compazine) Lip/Tongue/Throat adhesive tape Allergy Unknown Unknown Verified 10/27/24 07:02 Sulfa (Sulfonamide Allergy Unknown Unknown Verified 10/27/24 07:02 Antibiotics) methocarbamol Allergy ALGY-Redness Verified 10/27/24 07:02 of Skin Current Medications Generic Name Dose Route Start Last Admin Trade Name Freq PRN Reason Stop Dose Admin Albuterol/Ipratropium 3 ml 10/28/24 08:00 10/30/24 08:22 Ipratropium-Albuterol 3 Ml Neb INHALATION 3 ml On Hold: 10/30/24 12:36 TID.RESP ISBAELLA Administration Comment: Order held by Process Transfer Amlodipine Besylate 5 mg 10/27/24 09:00 10/30/24 09:30 Amlodipine 5 Mg Tablet PO 5 mg On Hold: 10/30/24 12:36 DAILY ISABELLA Administration Comment: Order held by Process Transfer Aspirin 81 mg 10/27/24 12:30 10/30/24 09:29 Aspirin 81 Mg Ec Tablet PO 81 mg On Hold: 10/30/24 12:36 DAILY ISABELLA Administration Comment: Order held by Process Transfer Atorvastatin Calcium 20 mg 10/27/24 21:00 10/29/24 20:39 Atorvastatin 10 Mg Tablet PO 20 mg On Hold: 10/30/24 12:36 BEDTIME ISABELLA Administration Comment: Order held by Process Transfer Buspirone HCl 15 mg 10/27/24 09:00 10/30/24 09:29 Buspirone 10 Mg Tablet PO 15 mg On Hold: 10/30/24 12:36 BID ISABELLA Administration Comment: Order held by Process Transfer Docusate Sodium 100 mg 10/27/24 09:00 10/30/24 09:30 Docusate Sodium 100 Mg Capsule PO 100 mg On Hold: 10/30/24 12:36 BID ISABELLA Administration Comment: Order held by Process Transfer Gabapentin 600 mg 10/27/24 09:00 10/30/24 09:29 Gabapentin 300 Mg Capsule PO 600 mg On Hold: 10/30/24 12:36 TID ISABELLA Administration Comment: Order held by Process Transfer Hydromorphone HCl 1 mg 10/28/24 12:12 10/30/24 07:42 Hydromorphone 0.5 Mg/0.5 Ml Inj IVP 1 mg On Hold: 10/30/24 12:36 Q3H PRN Administration Comment: Order held by Process PAIN Transfer Insulin Human Lispro 0 unit 10/27/24 18:16 10/30/24 11:58 Insulin Lispro 100 Unit/1 Ml SUBCUT Not Given On Hold: 10/30/24 12:36 TIDWM ISABELLA Comment: Order held by Process Protocol Transfer Pantoprazole Sodium 40 mg 10/27/24 09:00 10/30/24 09:[address] 40 Mg Tablet PO 40 mg On Hold: 10/30/24 12:36 DAILY ISABELLA Administration Comment: Order held by Process Transfer Prednisone 40 mg 10/29/24 09:00 10/30/24 09:30 Prednisone 20 Mg Tablet PO 40 mg On Hold: 10/30/24 12:36 DAILY ISABELLA Administration Comment: Order held by Process Transfer Senna 17.2 mg 10/27/24 21:00 10/29/24 20:39 Sennosides 8.6 Mg Tablet PO 17.2 mg On Hold: 10/30/24 12:36 BEDTIME ISABELLA Administration Comment: Order held by Process Transfer Sertraline HCl 100 mg 10/27/24 09:00 10/30/24 09:29 Sertraline 100 Mg Tablet PO 100 mg On Hold: 10/30/24 12:36 DAILY ISABELLA Administration Comment: Order held by Process Transfer Trazodone HCl 200 mg 10/27/24 08:09 10/29/24 20:41 Trazodone 100 Mg Tablet PO 200 mg On Hold: 10/30/24 12:36 BEDTIME PRN Administration Comment: Order held by Process INSOMNIA Transfer [facility] Anesthesia Medical History Head injury due to trauma Concussion Neck pain Liver mass on CT 05/19 and LDCT 08/18; US 09/18 shows it is simple cyst Mixed dyslipidemia COPD (chronic obstructive pulmonary disease) Polyneuropathy associated with underlying disease CAD (coronary artery disease) one stent Type 2 diabetes mellitus Screening for lung cancer LDCT ordered for 09/18 Nicotine dependence, cigarettes, with other nicotine-induced disorders Psychiatric care Claudication Essential hypertension Neutrophilic leukocytosis Myocardial infarction acute 09/2019 Depression sees psychiatry Surgical History Hx of bilateral cataract extraction History of bladder surgery [facility] urology [facility]. Home Hx of cervical spine surgery X 2; one done at [facility], one done at [facility]. Home History of 3 sections S/P DONNA-BSO done b/c of ruptured uterus; no cancer History of incisional hernia repair Status post colonoscopy 8.9.23 O[facility]--tubular adenoma and other polyps--repeat 3 yrs S/P cardiac cath one stent History of appendectomy H/O exploratory laparotomy Multiple bowel resections--3 X--done b/c of adhesions/blockages S/P cholecystectomy Family History Mother Breast cancer Sister Breast cancer Sister Breast cancer Brother Brain cancer Brother CAD (coronary artery disease) Social History Smoking and tobacco/nicotine status: current every day tobacco/nicotine user cigarettes Packs smoked per day: 0.5 [ Other cigarette details: started age 13] Alcohol intake: current Alcohol intake frequency: holidays/special occasions only Substance/Drug Use: never Household members: spouse and other Details: daughter, son in law and 2 grandkids Marital status: Number of children: 2 Highest education level completed: Bachelor's Degree Current occupational status: retired Previous occupational history: [employer] Female Reproductive History Spontaneous abortions: No Data Anesthesia 10/30/24 05:10 10/30/24 05:10 Short CBC 10/29/24 10/30/24 Range/Units 05:48 05:10 WBC 12.41 H 10.32 (3.29-11.43) 10^3/uL Hgb 11.90 12.40 (11.27-16.99) g/dL Hct 36.5 38.2 (36-47) % MCV 88.8 89.0 (85-98) fl Plt Count 309 291 (157-399) 10^3/cmm Neut % (Auto) 71.3 67.7 % Neut # (Auto) 8.86 H 6.99 (1.8-7.7) 10^3/uL BMP 10/29/24 10/30/24 05:48 05:10 Sodium 139 136 Potassium 3.9 4.0 Chloride 100 96 L Carbon Dioxide 28 28 BUN 11 10 Creatinine 0.7 0.6 Glucose 121 H 145 H Calcium 9.4 9.1 Cardiac Studies: Echocardiogram 06/14/22 Sestamibi Stress Test (Cardiology) 03/21/23
[2024-10-30] MEDS: fentaNYL 50 mcg/mL INJ 2mL IVP ×2 (13:08→15:20)
--- NOTE | 2024-10-30 13:19 | W.PM.OPSUD ---
Surgery/Procedure H&P Update DATE OF PROCEDURE: October 30, 2024 DATE H&P PERFORMED: 10/27/24 H&P UPDATE INFORMATION: I have reviewed H&P completed within last 30 days, I have examined patient prior to procedure and No changes to prior documentation PREOP DIAGNOSIS: right hip fracture PLANNED PROCEDURE: Operation Date: 10/30/24 12:30 Proposed Procedures p Right hip endoprosthesis(Right) - Jose Pizarro MD
[2024-10-30] MEDS: sodium chloride 0.9% 1,000 ML 30 ML IV (13:22)
[2024-10-30] MEDS: clindamycin 600 MG/50 ML PREMIX 100 MG IV (13:28)
--- NOTE | 2024-10-30 13:49 | P.PN_ITS ---
Subjective 2 Subjective: Patient was seen this morning, she is anxious about her surgery, she is requesting something to help with her anxiety, denies any fevers, no chills, no cough Vitals/I&O/Wt Last Vital Signs Temp 98.2 F 10/30/24 12:25 Pulse 86 10/30/24 12:25 Resp 18 10/30/24 13:08 BP 109/71 10/30/24 12:25 Pulse Ox 90 10/30/24 13:08 O2 Del Method Nasal Cannula 10/30/24 12:25 O2 Flow Rate 2 10/30/24 12:25 10/29/24 10/30/24 10/30/24 22:59 06:59 14:59 Intake Total 0 / 0 Output Total 1000 / 1000 400 / 1400 Balance -1000 / -1000 -400 / -1400 Physical Exam 2 Const: COMMON NORMALS: no acute distress and patient oriented x3 Neck/C-Spine: COMMON NORMALS: no JVD Resp: COMMON NORMALS: normal respiratory effort, No retractions, No use of accessory muscles and clear to auscultation bilaterally AUSCULTATION: clear to auscultation bilaterally Cardio: COMMON NORMALS: no JVD, regular rate, regular rhythm, S1 normal heart sound present and S2 normal heart sound present RATE: regular rate RHYTHM: regular rhythm HEART SOUNDS: S1 normal heart sound present and S2 normal heart sound present GI: COMMON NORMALS: Normal to inspection, nondistended, normoactive bowel sounds present and non-tender Extremity: COMMON NORMALS: no pedal edema Neuro: COMMON NORMALS: patient oriented x3 Psych: COMMON NORMALS: mental status grossly normal Urinary Catheter Management: Boogie: Cath Placed During This Visit: yes Reason for Continuing Indwelling Catheter: Required Immobilization for Trauma or Surgery or Anesthesia Urinary Catheter Date of Insertion: 10/27/24 Urinary Catheter Time of Insertion: 00:00 Data 10/30/24 05:10 10/30/24 05:10 A&P Assessment and plan (1) Closed fracture of neck of right femur: (2) COPD exacerbation: (3) Type 2 diabetes mellitus: (4) CAD (coronary artery disease): (5) Mixed dyslipidemia: Plan COPD exacerbation - De-escalate to prednisone 40 mg daily - DuoNeb CAD - History of cardiac cath in 2022 - RCA status post stenting, IFR LAD nonischemic Right hip fracture - Orthopedic has been consulted - On aspirin, Plavix -Will hold Plavix - Continue gabapentin - Plan surgical intervention today Type 2 diabetes mellitus, low-dose insulin sliding scale Had a fall about a week ago, will do CT head, CT neck no acute findings Full code Lovenox for DVT prophylaxis, currently on hold, n.p.o., SCDs PDMP PDMP Reviewed: Not Reviewed Attestations 2 Medical Necessity Statement*: Patient requires hospitalization for COPD exacerbation, right hip fracture Diagnoses Closed fracture of neck of right femur S72.001A Encounter type: initial encounter COPD exacerbation J44.1 Type 2 diabetes mellitus with hyperglycemia, with long-term current use of insulin E11.65; Z79.4 Diabetes mellitus care home insulin use: with intermediate designer use Diabetes mellitus complication status: with hyperglycemia Coronary artery disease of [place] artery of [place] heart with stable angina pectoris I25.118 Coronary Disease-Associated Artery/Lesion type: [place] artery [place] vs. transplanted heart: [place] heart Associated angina: with stable angina Mixed dyslipidemia E78.2
--- NOTE | 2024-10-30 14:48 | XR_ITS ---
WS: [id number] XR hip RT 2-3V wo/w pel* [id number] REASON FOR EXAM: Endoprosthetic replacement right hip FINDINGS: Prosthetic replacement of the femoral head. The prosthesis is intact and in proper position and alignment. No focal bone abnormality. XR/XR hip RT 2-3V wo/w pel* [id number] IMPRESSION: Femoral head replacement as above.
--- NOTE | 2024-10-30 14:54 | PM.OP ---
Operative Report Date of procedure: October 30, 2024 Surgeon: Jose Pizarro MD Procedure: Preoperative diagnosis: Right femoral neck fracture Postoperative diagnosis: Same Procedure: Endoprosthetic replacement of the right hip Surgeon: Jose Pizarro MD Anesthesia: General EBL: 100 cc Indications: Yessi is a 64-year-old white female who fell at home injuring her right hip approximately 4 days ago. She is unable to bear weight and subsequently brought to [facility] emergency room where x-rays demonstrated impacted subcapital fracture of the right femur. Patient is admitted through the hospitalist service. Patient was on Plavix and therefore this was discontinued at that time. Due to the use of Plavix will have to wait 4 to 5 days before surgical intervention. Orthopedic consultation was obtained and after evaluating the patient as well as the x-rays it is felt the patient would most benefit from endoprosthetic replacement of the right hip. All risk, benefit, and treatment alternatives were discussed however she and her elect to proceed with surgical intervention with a endoprosthetic replacement. Procedure: After obtaining written consent patient was taken to the operating room on her hospital bed and general anesthetic administered. Once good anesthesia was achieved patient placed over the surgical table. She was then placed up in a lateral decubitus position with the right hip up. She is held in place on a pegboard and padded out appropriately. Right leg and hip were prepped and draped usual fashion. After surgical timeout the hip was flexed to 90 degrees and a minimally invasive posterior lateral incision was made over the proximal portion the greater trochanter. Sharp dissection taken on down the subcutaneous tissues electrocautery used for hemostasis. Leg was gently internally rotated and dissection was taken on down along the posterior aspect the greater trochanter using electrocautery. This dissection went all the way down to the femoral neck exposing the capsule and removing it from the femoral neck with electrocautery. Capsule is opened up in a T-type fashion in order to expose the neck and head. Leg was internally rotated to 90 degrees and femoral neck was exposed. Deep self-retaining retractor was placed. Proximal femur was templated for femoral neck cut. Cut was made with a sagittal saw at appropriate level. Bone fragments were removed with a rongeur. At this point a bone scan was then used to remove the femoral head out of the acetabulum. It was then sized to approximately size 42 or 43 mm head. A trial 43 mm head was placed in the acetabulum put the range of motion found to be stable. Proximal femoral retractor was placed a box cut osteotome was placed to expose the proximal femur. Box cut osteotome and entry point into the proximal femur. Hand reaming and then broaching starting off at a 0 broach and going up to a size 2 broach was done by 1 mm increments. At this point a size 2 femoral stem was then placed and impacted with appropriate anteversion and found to be secure. Trial femoral head that being a 43 mm head with a standard neck was placed on the femoral component hip was reduced put through range of motion. It was found to be slightly long as compared to the left leg. Trial hip was dislocated. A permanent size 43 head with a -4 neck was then placed on the Garcia taper after the area had been washed with copious amounts of sterile irrigation. Once in place permanent head and neck were then reduced and hip was put through range of motion found to be stable. Leg lengths were equal. Area was washed again with sterile irrigation. With the knee bump placed between the 2 knees and the legs gently internally rotated capsule was repaired with #1 Vicryl [id number] sutures. Piriformis was repaired back to the greater trochanter with #5 Ethibond [id number]-[id number] sutures through the bone. Deep retractors were removed. Deep fascia was reapproximated 0 Vicryl [id number]-[id number] sutures. Subcutaneous tissue reapproximated 0 Vicryl interrupted sutures. Skin was closed with skin reginaldo. Wounds are cleaned and dried with Xeroform gauze placed on there as well as Silverlon adhesive dressing. Abduction pillow was applied. The patient was then awakened and transferred to the recovery room in stable condition
--- NOTE | 2024-10-30 15:30 | ANE.PACU2 ---
Inpatient post-anesthesia follow up: Airway intact: Yes Vital signs: Temperature 98.1 F Pulse Rate 97 Respiratory Rate 16 Blood Pressure 89/62 Pulse Oximetry 92 Oxygen Delivery Me thod Nasal Cannula Oxygen Flow Rate 3 Fraction of Inspir ed Oxygen Hydration adequate: Yes Nausea and vomiting: No Pain level: 1 Mental status: Baseline
--- NOTE | 2024-10-30 15:35 | ANE.PACU2 ---
Inpatient post-anesthesia follow up: Airway intact: Yes Vital signs: Temperature 98.1 F Pulse Rate 90 Respiratory Rate 16 Blood Pressure 126/79 Pulse Oximetry 92 Oxygen Delivery Me thod Nasal Cannula Oxygen Flow Rate 2 Fraction of Inspir ed Oxygen Hydration adequate: Yes Nausea and vomiting: No Pain level: 1 Mental status: Baseline
[2024-10-30] MEDS: TRAMadol 50 mg Tablet PO (16:00)
[2024-10-30] MEDS: ketorolac 30 mg/mL INJ 15 MG IVP (16:01)
[2024-10-30 16:38] LABS: Glucose Point of Care 228 mg/dL (70-110)
[2024-10-30] MEDS: mupirocin oint 22 gm 1 APPLIC NASAL (17:53)
[2024-10-30] MEDS: calcium carbonate 500 mg Chew Tablet 1000 MG PO (17:54)
[2024-10-30] MEDS: iron polysaccharide complex 150 mg Capsule PO (17:54)
[2024-10-30] MEDS: chlorhexidine gluconate 0.12% Btl 473 mL 30 ML MUCOUS MEM ×2 (17:55→21:31)
[2024-10-30 20:45] LABS: Glucose Point of Care 89 mg/dL (70-110)
[2024-10-30] MEDS: trazodone 100 mg Tablet 200 MG PO (21:21)
[2024-10-30] MEDS: ATORVASTATIN 10 MG TABLET 20 MG PO (21:21)
[2024-10-30] MEDS: sennosides 8.6 mg Tablet 17.2 MG PO (21:21)
[2024-10-30] MEDS: clindamycin 900 MG/50 ML PREMIX 100 MG IV (21:25)
[2024-10-30] MEDS: oxyCODONE-APAP 10-325 mg Tablet 1 TAB PO (23:59)
[2024-10-31] VITALS (8 sets, daily range): BP systolic 83–109; BP diastolic 60–86; PULSE 60–97; RESP 16–19; TEMP 36.6–36.8; O2SAT 91–96
[2024-10-31] MEDS: baclofen 10 mg Tablet PO
--- NOTE | 2024-10-31 00:07 | PC.NURSE ---
Patient complained of pain at shift change and asked for IV Dilaudid. Nurse checked patients blood pressure and it was 95/61 with 02 saturation at 89% on 2L. This nurse increased o2 to 3L and explained to patient that her blood pressure was to low to administer narcotic pain medication. This nurse offered patient toradol for pain and inflammation. Patient declined. This nurse rounded on patient a little while later and patient was sleeping. Around 2100 patient again asked for IV Dilaudid, this nurse checked patients blood pressure and it was 84/58. This nurse again explained that her blood pressure was still to low for IV Dilaudid and again offered Toradol. Patient stated That doesnt work for me, and i dont deserve this. Why cant i just have the medicine i want my blood pressure is always low. This nurse educated patient on the dangers of administering narcotic pain medication when the blood pressure is to low. Patient stated she understood. [facility] TECH contacted nurse at 00:00 to advise that patient is requesting pain meds. Patients blood pressure was 101/78. This nurse administered Toradol, baclofen and percocet as ordered. When nurse went to administer IV toradol patient asked if that is the strong stuff , this nurse advised patient that it was not Dilaudid that it was toradol and would help with the pain and inflammation. Nurse then explained the PO medications percocet and baclofen were being given to help with pain and spasms. Patient again stated Why cant i just have the medicine that i want . Nurse advised patient that PO medication was given as first line pain intervention so we can evaluate what works best to control pain for discharge. Patient said ok and nurse said she will come re-evaluate patients pain in an hour. Patient stated Please do! I waited half the night for pain medicine. This nurse then axplained to patient again that the IV Dilaudid was not given due to her blood pressure being to low, and that IV Toradol was offered and she had declined it. This nurse will continue to monitor patient throughout shift.
--- NOTE | 2024-10-31 01:02 | PC.NURSE ---
Patient hit call light at 00:30 and told moses that she wanted her pain shot because the other medication was not working. This nurse went to talk to patient and explained that the oral pain medication takes longer than thirty minutes to work. Patient then stated she hadnt had any pain medication since 3 pm. This nurse explained that she had multiple medications since 3 pm. Patient then said we were giving her medications to lower her blood pressure on purpose and we were torturing her. This nurse explained the only medications she has been given this shift that would lower her blood pressure is her pain medication.
[2024-10-31 03:00] LABS: Blood Urea Nitrogen 14 mg/dL (8-23); Calcium 8.5 mg/dL (8.5-10.5); Carbon Dioxide 27 mmol/L (22-29); Chloride 100 mmol/L (98-107); Creatinine Clr Calc Pharmacy 55.0362; Glomerular Filtration Rate 123.8 mL/min (90-130); Glucose 156 mg/dL (65-115); Osmolality Calculated 286 mOsm/kg (285-295); Sodium 136 mmol/L (136-145)
[2024-10-31 03:18] LABS: Anion Gap 13.1 (5-19); Potassium 4.1 mmol/L (3.5-5.1)
[2024-10-31 03:33] LABS: Basophils % 0.1 %; Eosinophils % 0.1 %; Hematocrit 30.2 % (36-47); Lymphocytes # 1.6 10^3/uL (0.8-4.8); Mean Corpuscular HGB Conc 33.1 g/dL (30-55); Mean Corpuscular Hemoglobin 29.3 pg (27-33); Mean Corpuscular Volume 88.6 fl (85-98); Mean Platelet Volume 8.5 fL (7.4-10.4); Monocytes # 0.8 10^3/uL (0.2-0.9); Neutrophils # 7.19 10^3/uL (1.8-7.7); Neutrophils % 74.4 %; Nucleated Red Blood Cells % 0 %; Platelet Count 245 10^3/cmm (157-399); Red Blood Count 3.41 10^6/uL (3.85-5.65); Red Cell Distribution Width 14.2 % (12.1-15.1); White Blood Count 9.66 10^3/uL (3.29-11.43)
[2024-10-31] MEDS: clindamycin 900 MG/50 ML PREMIX 100 MG IV (04:52)
[2024-10-31] MEDS: HYDROmorphone 0.5 MG/0.5 ML INJ 1 MG IVP (05:00)
--- NOTE | 2024-10-31 05:29 | PC.NURSE ---
Patient was asking for IV dilaudid at 4:50am nurse checked blood pressure and it was 109/86, pulse was 83. This nurse administered IV dilaudid as ordered at 0500. This nurse continued morning medication pass. At 0530 this nurse went back to reassess patients pain. Patients blood pressure is back down to 88/60 and pulse rate is 78 amd o2 saturation is at 94% on 3L via NC. This nurse will continue to monitor patient throughout rest of shift and pass information on to dayshift.
--- NOTE | 2024-10-31 06:08 | PC.NURSE ---
Patient has complained about uncontrolled pain this shift. Medications have been given when vitals were within normal limits. Due to uncontrolled pain patients buitrago has remained in place until patient can get up with PT.
[2024-10-31 06:17] LABS: Glucose Point of Care 146 mg/dL (70-110)
[2024-10-31] MEDS: gabapentin 300 mg Capsule 600 MG PO (08:22)
[2024-10-31] MEDS: predniSONE 20 mg Tablet 40 MG PO (08:22)
[2024-10-31] MEDS: docusate sodium 100 mg Capsule PO (08:22)
[2024-10-31] MEDS: sertraline 100 mg Tablet PO (08:22)
[2024-10-31] MEDS: pantoprazole DR 40 mg Tablet PO (08:22)
[2024-10-31] MEDS: amlodipine 5 mg Tablet PO (08:22)
[2024-10-31] MEDS: cholecalciferol (vitamin D3) 1,000 unit Tablet 1000 UNIT PO (08:22)
[2024-10-31] MEDS: iron polysaccharide complex 150 mg Capsule PO (08:22)
[2024-10-31] MEDS: ketorolac 30 mg/mL INJ 15 MG IVP ×2 (08:23)
[2024-10-31] MEDS: multivitamin therapeutic Tablet 1 TAB PO (08:23)
[2024-10-31] MEDS: insulin lispro 100 unit/1 mL SUBCUT (08:23)
[2024-10-31] MEDS: BuSPIRONE 10 mg Tablet 15 MG PO (08:23)
[2024-10-31] MEDS: aspirin 325 mg EC Tablet PO (08:23)
[2024-10-31] MEDS: ipratropium-albuterol 3 mL Neb INHALATION (08:25)
[2024-10-31] MEDS: oxyCODONE-APAP 10-325 mg Tablet 1 TAB PO (10:19)
[2024-10-31] MEDS: clopidogrel 75 mg Tablet PO (10:19)
[2024-10-31 10:51] LABS: Glucose Point of Care 156 mg/dL (70-110)
--- NOTE | 2024-10-31 11:12 | PM.CONSULT ---
Providers/Reason For Consult Consulting Physician/Specialty*: Jose Pizarro MD Orthopedic surgery Reason for Consult*: Right hip fracture Attending Physician: Og Garcia MD Primary Care Provider: Tiny Graff MD History of Present Illness History of Present Illness Yessi Schulte is a 64 year old female who is now postop day #1 after endoprosthetic replacement of the right hip. She is doing well and has good pain control. She has worked with physical therapy and demonstrates safe ambulation with a walker. She would like to be discharged home at this time as she has family members at home that can help with her. No other complaints at this time. Physical therapy indicates that they have discussed hip precautions and have gone over how to climb stairs and go downstairs and feels the patient would be safe at home. Medications/Allergies Home Medications ?Medication ?Instructions ?Recorded ?Confirmed ?Last Taken ?Type epinephrine 0.3 mg/0.3 mL 0.3 mg (0.3 mL) IM Q4H PRN 10/30/23 10/28/24 Unknown Rx injection, auto-injector (EpiPen anaphylaxis #2 ea 2-Redd) clopidogrel 75 mg tablet 75 mg PO DAILY #90 tabs 03/31/24 10/28/24 10/26/24 Rx ipratropium 0.5 mg-albuterol 3 mg 3 ml inhalation Q4H PRN wheezing 03/31/24 10/28/24 Unknown Rx (2.5 mg base)/3 mL nebulization #180 mL soln nitroglycerin 0.4 mg sublingual 0.4 mg sublingual Q5M PRN Chest 03/31/24 10/28/24 Unknown Rx tablet (Nitrostat) Pain #20 tabs [id number] 1 cap PO TID #90 caps 04/09/24 10/28/24 05/24/24 Rx 3,000-9,500-15,000 unit capsule, delayed rel (Creon) metoprolol tartrate 25 mg tablet 12.5 mg PO BID 05/25/24 10/28/24 05/24/24 History Held on 10/31/24. Instructions: Resume on 11/16/24. isosorbide mononitrate 60 mg 60 mg PO BID #180 tabs 06/04/24 10/28/24 10/26/24 Rx tablet,extended release 24 hr Held on 10/31/24. Instructions: Resume on 11/23/24. until you see primary care for blood pressure check buspirone 15 mg tablet 15 mg PO BID #60 tabs 06/12/24 10/28/24 10/26/24 Rx sertraline 100 mg tablet (Zoloft) 100 mg PO DAILY #30 tabs 06/12/24 10/28/24 10/26/24 Rx trazodone 100 mg tablet 200 mg (2 x 100 mg) PO .HS PRN 06/12/24 10/28/24 Unknown Rx insomnia #60 tabs 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 sensor (FreeStyle #2 ea 07/28/24 10/28/24 Unknown Rx Selwyn 3 Sensor device) 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,tube mounter,cont #1 ea 07/28/24 10/28/24 Unknown Rx (FreeStyle Selwyn 3 Haughton) pen needle, diabetic 32 gauge x #100 ea 09/10/24 10/28/24 Unknown Rx 32 (TechLITE Pen Needle) clonazepam 0.5 mg tablet 0.5 mg PO BID #60 tabs 10/15/24 10/28/24 10/26/24 Rx insulin glargine 100 unit/mL (3 10 unit (0.1 mL) SUBCUT QPM #15 mL 10/21/24 10/28/24 10/26/24 Rx mL) subcutaneous pen (Lantus Solostar U-100 Insulin) gabapentin 600 mg tablet 600 mg PO TID 10/28/24 10/28/24 10/26/24 History olanzapine 7.5 mg tablet 7.5 mg PO DAILY 10/28/24 10/28/24 Unknown History pantoprazole 40 mg tablet,delayed 40 mg PO DAILY 10/28/24 10/28/24 10/26/24 History release prazosin 5 mg capsule 5 mg PO QPM 10/28/24 10/28/24 10/25/24 History albuterol sulfate 90 mcg/actuation 2 puff inhalation QID PRN 10/29/24 10/31/24 Unknown Rx aerosol inhaler Shortness Of Breath #8.5 grams aspirin 81 mg tablet,delayed 81 mg PO DAILY 30 days #30 tabs 10/31/24 Unknown Rx release atorvastatin 10 mg tablet 20 mg (2 x 10 mg) PO BEDTIME 30 10/31/24 Unknown Rx days #30 tabs Allergies Allergy/AdvReac Type Severity Reaction Status Date / Time ciprofloxacin (From Cipro) Allergy Severe Unresponsiv Verified 10/27/24 07:02 e codeine Allergy Severe ALGY-Anaphy Verified 10/27/24 07:02 laxis lidocaine Allergy Severe ALGY-Swell Verified 10/27/24 07:02 Lip/Tongue/Throat morphine Allergy Severe ALGY-Anaphy Verified 10/27/24 07:02 laxis Penicillins Allergy Severe ALGY-Swell Verified 10/27/24 07:02 Lip/Tongue/Throat procaine (From Novocain) Allergy Severe ALGY-Swell Verified 10/27/24 07:02 Lip/Tongue/Throat prochlorperazine (From Allergy Severe ALGY-Swell Verified 10/27/24 07:02 Compazine) Lip/Tongue/Throat adhesive tape Allergy Unknown Unknown Verified 10/27/24 07:02 Sulfa (Sulfonamide Allergy Unknown Unknown Verified 10/27/24 07:02 Antibiotics) methocarbamol Allergy ALGY-Redness Verified 10/27/24 07:02 of Skin Current Medications Generic Name Dose Route Start Last Admin Trade Name Freq PRN Reason Stop Dose Admin Albuterol/Ipratropium 3 ml 10/28/24 08:00 10/31/24 08:25 Ipratropium-Albuterol 3 Ml Neb INHALATION 3 ml TID.RESP ISABELLA Administration Amlodipine Besylate 5 mg 10/27/24 09:00 10/31/24 08:22 Amlodipine 5 Mg Tablet PO 5 mg DAILY ISABELLA Administration Aspirin 325 mg 10/31/24 09:00 10/31/24 08:23 Aspirin 325 Mg Ec Tablet PO 325 mg DAILY ISABELLA Administration Atorvastatin Calcium 20 mg 10/27/24 21:00 10/30/24 21:21 Atorvastatin 10 Mg Tablet PO 20 mg BEDTIME ISABELLA Administration Baclofen 10 mg 10/30/24 15:35 10/31/24 00:00 Baclofen 10 Mg Tablet PO 10 mg TID PRN Administration spasm Buspirone HCl 15 mg 10/27/24 09:00 10/31/24 08:23 Buspirone 10 Mg Tablet PO 15 mg BID ISABELLA Administration Calcium Carbonate 1,000 mg 10/30/24 18:00 10/31/24 08:33 Calcium Carbonate 500 Mg Chew Tablet PO Not Given BID ISABELLA Chlorhexidine Gluconate 30 ml 10/30/24 17:00 10/31/24 08:23 Chlorhexidine Gluconate 0.12% Btl 473 Ml MUCOUS MEM Not Given QID ISABELLA Docusate Sodium 100 mg 10/27/24 09:00 10/31/24 08:22 Docusate Sodium 100 Mg Capsule PO 100 mg BID ISABELLA Administration Gabapentin 600 mg 10/27/24 09:00 10/31/24 08:22 Gabapentin 300 Mg Capsule PO 600 mg TID ISABELLA Administration Clindamycin HCl/Dextrose 900 mg in 50 mls @ 100 mls/hr 10/30/24 21:00 10/31/24 05:24 Cleocin IV 10/31/24 13:29 Infused Q8H [facility] Infusion Protocol Insulin Human Lispro 0 unit 10/27/24 18:16 10/31/24 08:23 Insulin Lispro 100 Unit/1 Ml SUBCUT 2 unit TIDWM ISABELLA Administration Protocol Multivitamins Therapeutic 1 tab 10/31/24 09:00 10/31/24 08:23 Multivitamin Therapeutic Tablet PO 1 tab DAILY [facility] Administration Mupirocin 1 applic 10/30/24 18:00 10/31/24 08:23 Mupirocin Oint 22 Gm NASAL 11/04/24 17:59 Not Given BID [facility] Oxycodone/Acetaminophen 1 tab 10/30/24 17:49 10/31/24 10:19 Oxycodone-Apap 10-325 Mg Tablet PO 1 tab Q6H PRN Administration MODERATE PAIN Pantoprazole Sodium 40 mg 10/27/24 09:00 10/31/24 08:[address] 40 Mg Tablet PO 40 mg DAILY ISABELLA Administration Prednisone 40 mg 10/29/24 09:00 10/31/24 08:22 Prednisone 20 Mg Tablet PO 40 mg DAILY ISABELLA Administration Senna 17.2 mg 10/27/24 21:00 10/30/24 21:21 Sennosides 8.6 Mg Tablet PO 17.2 mg BEDTIME ISABELLA Administration Sertraline HCl 100 mg 10/27/24 09:00 10/31/24 08:22 Sertraline 100 Mg Tablet PO 100 mg DAILY ISABELLA Administration Tramadol HCl 50 mg 10/30/24 15:05 10/30/24 16:00 Tramadol 50 Mg Tablet PO 50 mg Q4H PRN Administration MODERATE PAIN Trazodone HCl 200 mg 10/27/24 08:09 10/30/24 21:21 Trazodone 100 Mg Tablet PO 200 mg BEDTIME PRN Administration INSOMNIA Vitamin D 1,000 unit 10/31/24 09:00 10/31/24 08:22 Cholecalciferol (Vitamin D3) 1,000 Unit Tablet PO 1,000 unit DAILY ISABELLA Administration PFSH Acute PFSH: Medical History Head injury due to trauma Concussion Neck pain Liver mass on CT 05/19 and LDCT 08/18; US 09/18 shows it is simple cyst Mixed dyslipidemia COPD (chronic obstructive pulmonary disease) Polyneuropathy associated with underlying disease CAD (coronary artery disease) one stent Type 2 diabetes mellitus Screening for lung cancer LDCT ordered for 09/18 Nicotine dependence, cigarettes, with other nicotine-induced disorders Psychiatric care Claudication Essential hypertension Neutrophilic leukocytosis Myocardial infarction acute 09/2019 Depression sees psychiatry Surgical History Hx of bilateral cataract extraction History of bladder surgery [facility] urology [facility]. Home Hx of cervical spine surgery X 2; one done at [facility], one done at [facility]. Home History of 3 sections S/P DONNA-BSO done b/c of ruptured uterus; no cancer History of incisional hernia repair Status post colonoscopy 8.9.23 [facility]--tubular adenoma and other polyps--repeat 3 yrs S/P cardiac cath one stent History of appendectomy H/O exploratory laparotomy Multiple bowel resections--3 X--done b/c of adhesions/blockages S/P cholecystectomy Family History Mother Breast cancer Sister Breast cancer Sister Breast cancer Brother Brain cancer Brother CAD (coronary artery disease) Social History Smoking and tobacco/nicotine status: current every day tobacco/nicotine user cigarettes Packs smoked per day: 0.5 [ Other cigarette details: started age 13] Alcohol intake: current Alcohol intake frequency: holidays/special occasions only Substance/Drug Use: never Household members: spouse and other Details: daughter, son in law and 2 grandkids Marital status: Number of children: 2 Highest education level completed: Bachelor's Degree Current occupational status: 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 She is neurovascular intact distally of the right upper extremity. Tender palpation about the area as to be expected from surgical incision Urinary Catheter Management: Boogie: Cath Placed During This Visit: yes, but has since been removed by the nurse Reason for Continuing Indwelling Catheter: Decision to DC Catheter Urinary Catheter Date of Insertion: 10/27/24 Urinary Catheter Time of Insertion: 00:00 Date Urinary Catheter Removed: 10/31/24 Time Urinary Catheter Discontinued: 11:07 Data 10/31/24 03:23 10/31/24 02:13 A&P Assessment and plan (1) Closed fracture of neck of right femur: Patient's status post endoprosthetic replacement the right hip, progressing well Plan Plan at this time is to go ahead and discharge her from hospital today. I have requested that she follows up within 3 weeks for wound check and staple removal. She is to continue on with hip precautions. She is being converted back over to her baby aspirin and Plavix at this time. No other concerns at this point. PDMP PDMP Reviewed: Not Reviewed Consult Attestations Medical Necessity Statement: Patient status post right hip surgery. Ready for discharge Coding Level of Care Code Critical Care >/= 30 minutes Diagnoses Closed fracture of neck of right femur S72.001A Encounter type: initial encounter
--- NOTE | 2024-10-31 11:22 | P.DS_ITS ---
Discharge Providers Date of Admission: 10/26/24 21:23 Date of Discharge: October 31, 2024 Attending Provider at Admission: Leyla Simpson MD Attending Provider at Discharge: Og Garcia MD Primary Care Provider: Tiny Graff MD Diagnoses at Discharge Discharge Diagnosis (1) Closed fracture of neck of right femur: Status: Acute Qualifiers: Encounter type: initial encounter Qualified Code(s): S72.001A - Fracture of unspecified part of neck of right femur, initial encounter for closed fracture Reason for Visit Reason for Visit: R hip pain Hospital Course Hospital Course This is a 64 with past medical history of COPD, CAD, type 2 diabetes mellitus, who presents [facility] for mechanical fall after she tripped over her dog Patient was admitted to [facility] for intractable right hip pain, right femoral neck fracture, orthopedic service was consulted, due to her being on Plavix for surgical intervention was planned on 10/30/2024, she is status post endoprosthetic replacement of right hip, tolerated procedure well. Patient is adamant by going home, she declines mcc placement, declines home health care. Examined by by physical therapy, she was adamant about going home 10/31/2024, she was discharged home, discharged on a short supply of oxycodone to use sparingly for pain, discussed with her to not drive/drink/operating machinery while taking medication. Follow-up with primary care provider, follow-up with orthopedic services outpatient For her history of smoking, COPD, discussed with her smoking cessation counseling, risk of poor wound healing, morbidity and mortality associated. Patient also had a COPD exacerbation during hospitalization requiring steroids, overall clinically improved, completed steroid therapy as inpatient For DVT prophylaxis resume aspirin, Plavix that she takes at home. Monitor for hypercoagulable events, if she develops chest pain or sudden onset shortness of breath or lower extremity edema/calf pain to immediately come back to the emergency room Patient's blood pressures are soft, recommended continued inpatient monitoring until her blood pressures improved, no bloody black stools/chest pain/shortness of breath/dizziness, likely anesthetic effect, however recommended for patient to be monitored as inpatient until blood pressures are more reasonable before going home. However patient is adamant about going home, discussed morbidity and mortality, she voiced understanding, all questions answered, adamant about going home. On discharge will leave instructions to resume metoprolol potentially on Saturday as long as blood pressures are reasonable, continue to hold Imdur until she sees her primary care provider for blood pressure check. - Please use oxycodone sparingly for pain - Do not drive or operate heavy machinery or drink while medication - Please take aspirin, Plavix as prescribed - Monitor for risk of blood clots if so please come back to the hospital - Please stop smoking - Can resume metoprolol on Saturday if your blood pressures are reasonable, such as systolic blood pressure greater than 120 or diastolic blood pressure greater than 80 - If you are still lightheaded or dizzy continue to hold metoprolol or blood pressures are low such as less than 120/80 - Continue to hold Imdur until you see your primary care provider for blood pressure check - If your lites are dizzy please come back to the emergency room - If any chest pain go to the emergency room Physical Exam Const: COMMON NORMALS: no acute distress and patient oriented x3 Resp: COMMON NORMALS: normal respiratory effort, No retractions, No use of accessory muscles and clear to auscultation bilaterally AUSCULTATION: clear to auscultation bilaterally Cardio: COMMON NORMALS: regular rate, regular rhythm, S1 normal heart sound present and S2 normal heart sound present RATE: regular rate RHYTHM: regular rhythm HEART SOUNDS: S1 normal heart sound present and S2 normal heart sound present GI: COMMON NORMALS: Normal to inspection, nondistended, normoactive bowel sounds present and non-tender Extremity: COMMON NORMALS: no pedal edema Neuro: COMMON NORMALS: patient oriented x3 Psych: COMMON NORMALS: mental status grossly normal Urinary Catheter Management: Boogie: Cath Placed During This Visit: yes, but has since been removed by the nurse Reason for Continuing Indwelling Catheter: Decision to DC Catheter Urinary Catheter Date of Insertion: 10/27/24 Urinary Catheter Time of Insertion: 00:00 Date Urinary Catheter Removed: 10/31/24 Time Urinary Catheter Discontinued: 11:07 Discharge Data Studies Completed and Pending Completed Studies During Hospitalization Category Date Time Status CT bony pelvis 21667 Stat Cat Scan 10/26/24 20:[address] cervical spin wo con* [id number] Routine Cat Scan 10/27/24 10:[address] head wo con* [id number] Stat Cat Scan 10/27/24 10:58 Completed XR chest 1V portable [id number] Routine Exams 10/28/24 11:56 Completed XR chest 1V portable [id number] Urgent Exams 10/26/24 20:31 Completed XR hip RT 2-3V wo/w pel* [id number] Routine Exams 10/30/24 14:48 Completed XR hip RT 2-3V wo/w pel* [id number] Stat Exams 10/26/24 17:51 Completed Pending at discharge Category Date Time Status Complete Blood Count w/Auto AM LABS Lab 11/01/24 04:00 Ordered Complete Blood Count w/Auto AM LABS Lab 11/02/24 04:00 Ordered Type and Screen Routine Lab 10/30/24 12:54 Results Radiology Impressions Pelvis CT 10/26/24 20:01 IMPRESSION: 1. Impacted right femoral neck fracture. No additional acute bony injury is evident. 2. Subjective bony demineralization could be quantified with DEXA. Cervical Spine CT 10/27/24 10:58 IMPRESSION: No evidence of acute fracture or dislocation. Head CT 10/27/24 10:58 IMPRESSION: 1. No evidence of intracranial hemorrhage or mass effect. 2. No acute intracranial findings. Chest X-Ray 10/28/24 11:56 IMPRESSION: Potential interval abnormality, equivocal, with recommendation as above. Hip/Pelvis X-Ray 10/30/24 14:48 IMPRESSION: Femoral head replacement as above. Laboratory Results WBC 9.66 10^3/uL (3.29-11.43) 10/31/24 03:23 Corrected WBC Cancelled 10/31/24 02:13 RBC 3.41 10^6/uL (3.85-5.65) L 10/31/24 03:23 Hgb 10.00 g/dL (11.27-16.99) L 10/31/24 03:23 Hct 30.2 % (36-47) L 10/31/24 03:23 MCV 88.6 fl (85-98) 10/31/24 03:23 MCH 29.3 pg (27-33) 10/31/24 03:23 MCHC 33.1 g/dL (30-55) 10/31/24 03:23 RDW 14.2 % (12.1-15.1) 10/31/24 03:23 Plt Count 245 10^3/cmm (157-399) 10/31/24 03:23 MPV 8.5 fL (7.4-10.4) 10/31/24 03:23 Gran % Cancelled 10/31/24 02:13 Neut % (Auto) 74.4 % 10/31/24 03:23 Lymph % (Auto) 17.0 % 10/31/24 03:23 [place] % (Auto) 8.0 % 10/31/24 03:23 Eos % (Auto) 0.1 % 10/31/24 03:23 Baso % (Auto) 0.1 % 10/31/24 03:23 Neut # (Auto) 7.19 10^3/uL (1.8-7.7) 10/31/24 03:23 Lymph # (Auto) 1.6 10^3/uL (0.8-4.8) 10/31/24 03:23 [place] # (Auto) 0.8 10^3/uL (0.2-0.9) 10/31/24 03:23 Eos # (Auto) 0.0 10^3/uL (0.0-0.8) 10/31/24 03:23 Baso # (Auto) 0.0 10^3/uL (0.0-0.1) 10/31/24 03:23 Absolute Gran (auto) Cancelled 10/31/24 02:13 Nucleated RBC % (auto) 0 % 10/31/24 03:23 Nucleated RBCs # 0.0 /100WBC 10/31/24 03:23 PT 13.60 SECONDS (12.1-14.9) 10/27/24 11:46 INR 0.97 (0.8-1.2) 10/27/24 11:46 Sodium 136 mmol/L (136-145) 10/31/24 02:13 Potassium 4.1 mmol/L (3.5-5.1) 10/31/24 02:13 Chloride 100 mmol/L (98-107) 10/31/24 02:13 Carbon Dioxide 27 mmol/L (22-29) 10/31/24 02:13 Anion Gap 13.1 (5-19) 10/31/24 02:13 BUN 14 mg/dL (8-23) 10/31/24 02:13 Creatinine 0.5 mg/dL (0.5-0.9) 10/31/24 02:13 GFR Calculation 123.8 mL/min (90-130) 10/31/24 02:13 Glucose 156 mg/dL (65-115) H 10/31/24 02:13 POC Glucose 156 mg/dL (70-110) H 10/31/24 10:47 Estimat Average Glucose 137 10/27/24 11:46 Hemoglobin A1c 6.4 % (4.0-6.0) H 10/27/24 11:46 Calculated Osmolality 286 mOsm/kg (285-295) 10/31/24 02:13 Calcium 8.5 mg/dL (8.5-10.5) 10/31/24 02:13 Total Bilirubin 0.5 mg/dL (0.15-1.2) 10/27/24 11:46 AST 16 U/L (0-32) 10/27/24 11:46 ALT 18 U/L (0-33) 10/27/24 11:46 Alkaline Phosphatase 63 U/L (35-105) 10/27/24 11:46 Total Protein 6.8 g/dL (6.6-8.7) 10/27/24 11:46 Albumin 3.7 g/dL (3.5-5.2) 10/27/24 11:46 Globulin 3.1 g/dL (1.3-4.6) 10/27/24 11:46 Urine Color Dark yellow (Yellow) A 10/26/24 23:50 Urine Appearance Clear (CLEAR) 10/26/24 23:50 Urine pH 7.0 (5-7) 10/26/24 23:50 Ur Specific [place] 1.024 (1.005-1.030) 10/26/24 23:50 Urine Protein Negative (Negative) 10/26/24 23:50 Urine Glucose (UA) Negative (Normal) 10/26/24 23:50 Urine Ketones Trace (Negative) 10/26/24 23:50 Urine Blood Negative (Negative) 10/26/24 23:50 Urine Nitrate Negative (Negative) 10/26/24 23:50 Urine Bilirubin Negative (Negative) 10/26/24 23:50 Urine Urobilinogen 1.0 mg/dL (Negative) 10/26/24 23:50 Ur Leukocyte Esterase Trace (Negative) A 10/26/24 23:50 Urine RBC 3-5 /hpf (0-2) 10/26/24 23:50 Urine WBC 0-5 /hpf (0-5) 10/26/24 23:50 Ur Squamous Epith Cells 11-20 /hpf (0-5) H 10/26/24 23:50 Amorphous Sediment Not Reportable 10/26/24 23:50 Urine Bacteria None seen /hpf (NONE) 10/26/24 23:50 Hyaline Casts 1.21 /lpf 10/26/24 23:50 Urine Yeast Trace /hpf 10/26/24 23:50 Blood Type A Positive 10/30/24 12:54 Rho(D) Type Rh positive 10/30/24 12:54 Vitals Last Vital Signs Temp 97.9 F 10/31/24 07:26 Pulse 89 10/31/24 08:00 Resp 18 10/31/24 10:19 BP 90/60 10/31/24 07:26 Pulse Ox 91 10/31/24 08:00 O2 Del Method Nasal Cannula 10/31/24 08:00 O2 Flow Rate 3 10/31/24 08:00 Discharge Plan Discharge Patient Disposition: Home Health Service Condition: Stable Prescriptions: New atorvastatin 10 mg Tablet 20 mg PO BEDTIME 30 Days Qty: 30 0RF oxycodone 5 mg tablet 5 mg PO Q6H PRN (Reason: pain) 5 Days Qty: 20 0RF Continued clopidogrel 75 mg tablet 75 mg PO DAILY Qty: 90 3RF nitroglycerin [Nitrostat] 0.4 mg tablet, sublingual 0.4 mg SUBLINGUAL Q5M PRN (Reason: Chest Pain) Qty: 20 2RF Rx Instructions: do not exceed 3 doses per episode ipratropium-albuterol 0.5 mg-3 mg(2.5 mg base)/3 mL solution for nebulization 3 ml inhalation Q4H PRN (Reason: wheezing) Qty: 180 1RF sertraline [Zoloft] 100 mg tablet 100 mg PO DAILY Qty: 30 0RF Rx Instructions: Start after 1 month on 50 mg buspirone 15 mg tablet 15 mg PO BID Qty: 60 2RF trazodone 100 mg tablet 200 mg PO .HS PRN (Reason: insomnia) Qty: 60 2RF epinephrine [EpiPen 2-Redd] 0.3 mg/0.3 mL auto-injector 0.3 mg IM Q4H PRN (Reason: anaphylaxis) Qty: 2 1RF Creon 3,000-9,500- 15,000 unit capsule,delayed release(DR/EC) 1 cap PO TID Qty: 90 5RF clonazepam 0.5 mg tablet 0.5 mg PO BID Qty: 60 1RF insulin glargine [Lantus Solostar U-100 Insulin] 100 unit/mL (3 mL) insulin pen 10 unit SUBCUT QPM Qty: 15 0RF albuterol sulfate 90 mcg/actuation HFA aerosol inhaler 2 puff inhalation QID PRN (Reason: Shortness Of Breath) Qty: 8.5 0RF gabapentin 600 mg tablet 600 mg PO TID olanzapine 7.5 mg tablet 7.5 mg PO DAILY prazosin 5 mg capsule 5 mg PO QPM pantoprazole 40 mg tablet,delayed release (DR/EC) 40 mg PO DAILY aspirin 81 mg tablet,delayed release (DR/EC) 81 mg PO DAILY 30 Days Qty: 30 3RF Held isosorbide mononitrate 60 mg tablet extended release 24 hr 60 mg PO BID Qty: 180 0RF Hold Instructions: Resume on 11/23/24. until you see primary care for blood pressure check metoprolol tartrate 25 mg tablet 12.5 mg PO BID Hold Instructions: Resume on 11/16/24. Discontinued cephalexin 500 mg capsule 500 mg PO TID No Action (DME) FreeStyle [place] 3 [place] Misc See Rx Instructions .Route Qty: 1 0RF Rx Instructions: As directed (DME) FreeStyle [place] 3 Sensor Device See Rx Instructions .Route Qty: 2 5RF Rx Instructions: As directed (DME) pen needle, diabetic [TechLITE Pen Needle] 32 gauge x 5/32 needle See Rx Instructions .ROUTE .COMPLEX Qty: 100 0RF Dose Instruction: USE DIRECTED Rx Instructions: USE DIRECTED Discharge Orders: Discharge Order (Routine); Ordered 10/31/24 Ordered By: Og Garcia Referrals: [facility], [facility] [Outside] Jose Pizarro MD [Physician, Orthopedics] Referral Note: We have notified your physician's clinic of the need for a follow-up appointment to be scheduled. If you have not heard from them within the next 2 business days, please call them directly. Tiny Graff MD [Primary Care Provider, Family Practice] - 11/12/24 9:30 am Discharge Diet: Cardiac Discharge Activity: Resume usual activity Patient Instructions: Atorvastatin (By mouth), COPD (Chronic Obstructive Pulmonary Disease) (DC), Precautions after Total Joint Replacement Surgery (DC), Total Hip Replacement (DC), Hip Abduction Pillow (DC), Opioid Safety Activity Restrictions/Additional Instructions: - Please use oxycodone sparingly for pain - Do not drive or operate heavy machinery or drink while medication - Please take aspirin, Plavix as prescribed - Monitor for risk of blood clots if so please come back to the hospital - Please stop smoking - Can resume metoprolol on Saturday if your blood pressures are reasonable, such as systolic blood pressure greater than 120 or diastolic blood pressure greater than 80 - If you are still lightheaded or dizzy continue to hold metoprolol or blood pressures are low such as less than 120/80 - Continue to hold Imdur until you see your primary care provider for blood pressure check - If your lites are dizzy please come back to the emergency room - If any chest pain go to the emergency room Discharge Attestations Time Spent in Discharge Care*: greater than 30 min Quality Metrics Clinical Quality Measures [ No reported AMI, CVA or VTE this stay] Coding Level of Care Code 24817 Total time (in minutes) for Discharge: 45 Diagnoses Closed fracture of neck of right femur S72.001A Encounter type: initial encounter
--- NOTE | 2024-10-31 11:46 | PC.NUTR ---
Patient was discharged before evaluation was completed.
== END 2024-10-31 11:39 | disposition home health service (06) | DRG 522 ==
LOC: ER 21:24 → OBGYN 22:45 → MEDSURG 10-27 17:50
PROVIDERS: Orthopaedic Surgery; Admitting Provider Internal Medicine; Emergency Provider Physician Assistant; PCP Family Medicine; Visit Provider Family Medicine
PROC: 0SRR0JZ Replacement of Right Hip Joint, Femoral Surface with Synthetic Substitute, Open Approach (ICD-10-PCS; principal; 2024-10-30 12:30)
DX: S72.001A Fracture of unspecified part of neck of right femur, initial encounter for closed fracture (principal); J44.1 Chronic obstructive pulmonary disease with (acute) exacerbation; W01.0XXA Fall on same level from slipping, tripping and stumbling without subsequent striking against object, initial encounter; I25.10 Atherosclerotic heart disease of native coronary artery without angina pectoris; E11.42 Type 2 diabetes mellitus with diabetic polyneuropathy; Z79.4 Long term (current) use of insulin; F17.210 Nicotine dependence, cigarettes, uncomplicated; F32.A Depression, unspecified; I10 Essential (primary) hypertension; E78.2 Mixed hyperlipidemia; I25.2 Old myocardial infarction; Z95.5 Presence of coronary angioplasty implant and graft; Z79.82 Long term (current) use of aspirin; Z79.02 Long term (current) use of antithrombotics/antiplatelets
CPT/HCPCS: 36415; 36416; 51702; 70450; 71045; 72125; 72192; 73502; 80048; 80053; 81001; 82962; 83036; 85025; 85610; 86850; 86900; 93005; 94640; 94664; 96372; 96374; 97110; 97161; 99285; C1713; C1776; J1171; J1650; J1815; J1885; J2003; J2060; J2405; J2704; J2919; J3010; J3490; J7030; J7512; J9999

== ENCOUNTER → 2024-11-10 09:31 | Outpatient (BNVA) | payer MEDICARE, SELFPAY | PROVIDERS: PCP Family Medicine; Visit Provider Orthopaedic Surgery | DX: M25.551 Pain in right hip (principal); S72.001D Fracture of unspecified part of neck of right femur, subsequent encounter for closed fracture with routine healing; X58.XXXD Exposure to other specified factors, subsequent encounter | CPT/HCPCS: 73502; 99024 ==

== ENCOUNTER → 2024-12-01 13:12 | Outpatient (BNVA) | payer MEDICARE, SELFPAY | PROVIDERS: PCP Family Medicine; Visit Provider Orthopaedic Surgery | DX: M25.551 Pain in right hip (principal); S72.001D Fracture of unspecified part of neck of right femur, subsequent encounter for closed fracture with routine healing; X58.XXXD Exposure to other specified factors, subsequent encounter | CPT/HCPCS: 73502; 99024 ==

== ENCOUNTER 2024-12-03 13:48 | Outpatient (RCR) | payer MEDICARE, SELFPAY | END 2024-12-24 23:59 | disposition home or self-care (01) | LOC: SPT 13:48 | PROVIDERS: PCP Family Medicine; Visit Provider Orthopaedic Surgery | DX: Z47.1 Aftercare following joint replacement surgery (principal); Z96.641 Presence of right artificial hip joint | CPT/HCPCS: 97110; 97116; 97162 ==

== ENCOUNTER 2024-12-24 16:21 | Outpatient (CLI) | payer MEDICARE, SELFPAY | END 2024-12-24 16:22 | disposition home or self-care (01) | LOC: LAB 16:25 | PROVIDERS: PCP Family Medicine; Visit Provider Family Medicine | DX: D62 Acute posthemorrhagic anemia (principal); G63 Polyneuropathy in diseases classified elsewhere; F33.2 Major depressive disorder, recurrent severe without psychotic features; E11.65 Type 2 diabetes mellitus with hyperglycemia; Z79.4 Long term (current) use of insulin | CPT/HCPCS: 80053; 82607; 83540; 84439; 84443; 85025; 87086 ==

== ENCOUNTER 2024-12-25 05:00 | Outpatient (RCR) | payer MEDICARE, SELFPAY | END 2025-01-24 23:59 | disposition home or self-care (01) | LOC: SPT 05:00 | PROVIDERS: Visit Provider Orthopaedic Surgery | DX: Z47.1 Aftercare following joint replacement surgery (principal); Z96.641 Presence of right artificial hip joint | CPT/HCPCS: 97110 ==

== ENCOUNTER 2024-12-25 06:30 | Outpatient (RCR) | payer MEDICARE, SELFPAY | END 2025-01-24 23:59 | disposition home or self-care (01) | LOC: SPT 06:30 | PROVIDERS: Visit Provider Family Medicine | DX: M47.812 Spondylosis without myelopathy or radiculopathy, cervical region (principal) | CPT/HCPCS: 97110; 97161; G0283 ==

== ENCOUNTER 2025-01-20 09:39 | Inpatient (IN) | payer MEDICARE, SELFPAY ==
--- OUTSIDE RECORDS SUMMARY | 2024-01-14 08:30 | XMS_ITS ---
Author Organization [facility] Address [address] [place] [address] Care Team Providers Care Wealth Management Director Name Role Phone Dr Frank Smith DO Primary Care Provider Unav Ashia Giles Unavailable [phone] Frank Sam Unavailable [phone] REASON FOR VISIT s/p 10/22/23 4 week follow up Encounters Encounter Location Date Provider Diagnosis [facility] [place] [address] [place] [address] 01/14/2024 Frank Sam Plan Of Treatment No Information Progress Notes * RON MARIN YDOB:[birth year] (64 yo F)Acc No.[id number]:01/14/2024 Patient: RON VALLADARES Provider: Tex Sam APRN :1960 A ge:63 Y S ex:Female Date:01/14/2024 Address:[address] [place], [place] [id number] Pcp:Dr Frank Smith DO Subjective: * Chief Complaints: * S /p 10/22/23 4 week follow up * Electronic signature of RAFAEL Ascencio on 01/20/2025 at 09:47 AM CDT Sign off status: Pending * Provider: Tex Sam APRN Date: 0 01/14/2024 Generated for Printi ng/Famageng/eTransmitting on: 0 01/20/2025 09:47 AM CDT
--- OUTSIDE RECORDS SUMMARY | 2024-04-14 12:00 | XMS_ITS ---
Author Organization [facility] Address [address] [place] [address] Care Team Providers Care Radiologic Tech Name Role Phone Frank Smith DO Primary Care Provider Unavail GARRICK Hinds Unavailable [phone] REASON FOR VISIT 4-6 mo ua/pvr Encounters Encounter Location Date Provider Diagnosis [facility] [address] [facility] [place] [address] 04/14/2024 GARRICK REYES Plan Of Treatment No Information Progress Notes * Yessi SCHULTEDOB:[birth year] (64 yo F)Acc No.[id number]:04/14/2024 Progress Notes Patient: eYssi VALLADARES Provider: JONO Chan :1960 A ge:63 Y S ex:Female Date:04/14/2024 Address:[address] [place], [place] [id number] Pcp:Frank Smith DO Subjective: * Chief Complaints: * 1 . 4-6 mo ua/pvr. * Medical History: Objective: * Vitals: Assessment: Plan: * Treatment: * Billing Information: * Visit Code: * Procedure Codes: * Electronic signature of GARRICK REYES APRN on 01/20/2025 at 09:46 AM CDT Sign off status: Pending * Provider: JONO Chan Date: 06/14/2023 Generated for Deven dockery/Michelle/eTransmitting on: 0 01/20/2025 09:46 AM CDT
[2025-01-20] VITALS (9 sets, daily range): BP systolic 83–126; BP diastolic 63–87; PULSE 65–82; RESP 14–16; TEMP 36.5; O2SAT 92–99; BMI 21.9
--- OUTSIDE RECORDS SUMMARY | 2025-01-20 09:46 | XMS_ITS | Clinical Summary ---
Author Organization [facility] de Address [address] [place] [address] Phone Care Team Providers Care Loan Collector Name Role Phone Unavailable Primary Care Provider Unavailabl e Allergies Active Allergy Reactions Criticality Noted Date Comments Adhesive Tape-Silicones Unknown 02/18/2023 Ciprofloxacin Anaphylaxis High 02/18/2023 Codeine Anaphylaxis High 02/18/2023 Lidocaine Swelling High 02/18/2023 Lip / tongue / throat swelling Morphine Anaphylaxis High 02/18/2023 Penicillins Swelling Low 02/18/2023 Procaine Anaphylaxis High 02/18/2023 Lip / tongue / throat Prochlorperazine Anaphylaxis High 02/18/2023 Lip / tongue / throat Medications atorvastatin (LIPITOR) 40 mg tablet Take 40 mg by mouth daily at bedtime. Active clonazePAM (KlonoPIN) 0.5 mg Tablet Take 0.5 mg by mouth 2 times daily. Active clopidogreL (PLAVIX) 75 mg Tablet Take 75 mg by mouth daily. Active diphenhydrAMINE (BENADRYL) 25 mg tablet Take 25 mg by mouth every 6 hours as needed for Allergies. Active gabapentin (NEURONTIN) 600 mg tablet Take 600 mg by mouth 3 times daily. Active GLIPIZIDE ORAL Take by mouth daily. Active isosorbide mononitrate (IMDUR) 60 mg Extended Release 24 hour tablet Take 60 mg by mouth daily in the morning. Active MELATONIN ORAL Take 20 mg by mouth daily at bedtime. Active metoprolol succinate (TOPROL XL) 25 mg Extended Release 24 hour tablet Take 25 mg by mouth daily. Active nitroglycerin (NITROSTAT) 0.4 mg Tablet, Sublingual Place 0.4 mg under tongue every 5 minutes as needed for Chest Pain. Active pantoprazole (PROTONIX) 40 mg Tablet, Delayed Release (E.C.) Take 40 mg by mouth 2 times daily. Active scopolamine (TRANSDERM-SCOP) 1 mg/72 hr patch Apply 1 Patch to skin as directed Q72H. Active Social History Tobacco Use Types Packs/Day Years Used Date Smoking Tobacco: Never Assessed Comments Unknown Sex and Gender Information Value Date Recorded Sex Assigned at Not on file Legal Sex Female 10:22 AM CDT Gender Identity Not on file Sexual Orientation Not on file Plan of Treatment Health Maintenance Due Date Last Done Comments DTAP/TDAP/TD VACCINES (1 - Tdap) 1978 BREAST CANCER SCREENING 1999 COLORECTAL SCREENING 2004 Colorectal Cancer Screening 2004 FIT-DNA Q 3 years 2004 FIT/FOBT Q 1 year 2004 Flex Sig/CT Colonography Q 5 years 2004 PNEUMOCOCCAL VACCINE 50+ YEARS (1 of 1 - PCV) 06/18/19 10 ZOSTER VACCINE (1 of 2) 2009 OSTEOPOROSIS SCREENING 2024 INFLUENZA VACCINE (#1) 2024 RSV VACCINE (60+ or ) (1 - 1-dose 75+ series) 2034 Insurance [employer]UE [employer]/TRUE BLUE PPO
--- OUTSIDE RECORDS SUMMARY | 2025-01-20 09:46 | XMS_ITS | Patient Health Record ---
Author Organization [facility] Address [address] [place] [address] Care Team Providers Care Structural Designer Name Role Phone Sarah BARCENAS, Dr Marie Primary Care Provider Bj DelunaAndrei Unavailable [phone] Frank Sam Unavailable [phone] Allergies Allergen (clinical drug ingredient) Drug/Non Drug Allergy documented on EMR Reaction Allergy Type Onset Date Status fluconazole Fluconazole rash Drug Allergy Act gely Sulfur Unknown Drug Allergy Active Compazine Unknown Drug Allergy Active codeine Codeine Unknown Drug Allergy Active lidocaine Lidocaine Unknown Drug Allergy Active morphine Morphine Unknown Drug Allergy Active Penicillin Unknown Drug Allergy Active Tape Unknown Allergy Active Reason For Referral No Information Medications Medication SIG (Take, Route, Frequency, Duration) Notes Start Date End Date Status Nitrofurantoin Monohyd Macro 100 MG Capsule 1 capsule with food Orally every 12 hrs Active Allergy Eye 0.025-0.3 % Solution 1 drop into affected eye as needed Ophthalmic Four times a day Active Ondansetron 4 MG Tablet Disintegrating 1 tablet on the tongue and allow to dissolve Orally every 6 hours as needed Active Prazosin HCl 1 MG Capsule 1 capsule at b edtime Orally Once a day Active Lantus SoloStar Acti ve Pantoprazole Sodium 40 MG Tablet Delayed Release 1 tablet Orally Once a day Active Atorvastatin Calcium 40 MG Tablet 1 tablet Orally Once a day Active Isosorbide Mononitrate ER 60 MG Tablet Extended Release 24 Hour 1 tablet Orally bid Activ e Creon 22480-09518 UNIT Capsule Delayed Release Particles 1 Orally qid Active Clopidogrel Bisulfate 75 MG Tablet 1 tablet Orally once a day Active Isosorbide Mononitrate Not-Taking Gabapentin 600 MG Tablet 1 tablet orally 3 times daily Active Pancreaze 47247-23629 UNIT Capsule Delayed Release Particles 2 tablets orally tid Active Metoprolol Succinate ER 25 MG Tablet Extended Release 24 Hour 1 tablet orally bid Active clonazePAM 0.5 MG Tablet 1 tablet orally bid Active Social History Tobacco Use: Social History Observation Description Date Details (start date - stop date) Current Smoker NA - NA Social History Tobacco Use: Social Info Question Answer Notes xTobacco Use/Smoking Are you a current smoker Problems Problem Type SNOMED Code ICD Code Onset Dates Problem Status W/U Status Risk Notes Problem Urinary incontinence (434137017) Urinary incontinence, unspecified type (R32) Active confirmed Problem Difficulty swallowing solids (781366556) Difficulty swallowing solids (R13.10) Active confirmed Problem Cervical spondylosis (368971162) Cervical spondylosis (M47.812) Active confirmed Problem Cystitis (57358886) Cystitis (N30.90) Active confirmed Problem Allergy to antifungal drug (Z88.3) Active confirmed Encounters Encounter Location Date Provider Diagnosis [facility] [place] [address] [address] 01/24/2024 Frank Sam Plan Of Treatment Pending Test Test Name Order Date Prothrombin Time 96956 10/03/2023 ABORh 77448, 57873 10/03/2023 Antibody Screen 13377 10/03/2023 Basic Metabolic Panel (BMP) 71996 2023 CBC w\ Auto Diff 12678 10/03/2023 Partial Thromboplastin Time 67345 2023 Cervical Spine AP/Lat 2-3 Views-70430 Cervical Spine AP/Lat 2-3 Views-54489 Cervical Spine AP/Lat 2-3 Views-05060 Chest PA/Lat-51317 10/10/2023 Chest PA/Lat-55051 10/03/2023 Electrocardiogram 12 Lead Tracing-70353 10/03/2023 Glucometer WBG--94359 10/17/2023 Glucometer WBG--85160 10/18/2023 Glucometer WBG--18338 10/18/2023 Glucometer WBG--05236 10/17/2023 Glucometer WBG--51016 10/17/2023 [facility]-[id number] 10/10/2023 zzzFluoroscopy 10/17/2023 Insurance Providers Payer Name Payer Address Payer Phone Subscriber Number Group Number Insured Name Patient Relationship to Insured Coverage Start Date Coverage End Date [employer] [address] [place] [address] [phone] [id number] Uriel Schulte Spouse - patient is the spouse of the insured Medical (General) History Medical History History ICD Code measles mumps Pneumonia Heart Disease Arthritis anemia bladder infections diabetes mellitus hernia blood transfusion Back Trouble High Blood Pressure hives Surgical History Surgery Date(Month/Year) C5-6 corpectomy and fusion multiple (cannot specify what surgeries) Hospitalization History Reason Date(Month/Year) see above
--- OUTSIDE RECORDS SUMMARY | 2025-01-20 09:47 | XMS_ITS | Patient Health Record ---
Author Organization [facility] Address [address] [place] [address] Care Team Providers Care Fan Blade Aligner Name Role Phone Frank Smith DO Primary Care Provider Unavail timo REYESGARRICK Unavailable [phone] Allergies Allergen (clinical drug ingredient) Drug/Non Drug Allergy documented on EMR Reaction Allergy Type Onset Date Status Substance with penicillin structure and antibacterial mechanism of action (substance) penicillins (uncoded) Unknown Allergy Active Substance with sulfonamide structure and antibacterial mechanism of action (substance) sulfa antibiotics (uncoded) Unknown Allergy Active Codeine Phosphate Unknown Drug Allergy Active lidocaine Lidocaine Unknown Drug Allergy Active morphine Morphine Sulfate ER Unknown Drug Allergy Active Compazine Unknown Drug Allergy Active Adhesive Unknown Allergy Active azithromycin Azithromycin Unknown Drug Allergy A ctive erythromycin Erythromycin Unknown Drug Allergy A ctive fluconazole Fluconazole anaphylaxis Drug Allergy A ctive Reason For Referral No Information Medications Medication SIG (Take, Route, Frequency, Duration) Notes Start Date End Date Status Atorvastatin Calcium 40 MG 1 tablet Orally Once a day Active Ondansetron HCl 4 MG 1 tablet Orally Once a day As needed Active Clopidogrel Bisulfate 75 MG 1 tablet Orally Once a day Active Metoprolol Succinate ER 25 MG 1 tablet Orally twice a day Active Isosorbide Mononitrate 20 MG 1 tablet Orally Twice a day Active Lantus 100 UNIT/ML as directed Subcutaneous Active Albuterol Sulfate 0.63 MG/3ML as directed Inhalation Activ e Pancreaze 1547-2424 UNIT as directed Orally Active Creon 6000-72040 UNIT as directed Orally Not-Taking Aspirin 81 MG 1 capsule Orally Onc e a day 09/04/2023 Active Gabapentin 600 MG 1 tablet Orally thre e times a day Active Nitroglycerin 0.4 MG as directed Sublingual As needed Active Social History Tobacco Use: Social History Observation Description Date Details (start date - stop date) Current Smoker NA - NA Tobacco Use/Smoking Question Answer Notes Tobacco use: current smoker How often do you smoke cigarettes? every day Problems Problem Type SNOMED Code ICD Code Onset Dates Problem Status W/U Status Risk Notes Problem Bowel incontinence (49458474) Fecal incontinence (R15.9) Active confirmed Problem Current smoker (48745442) Current smoker (F17.200) Active confirmed Problem Urinary tract infection (72852853) Urinary tract infection (N39.0) Active confirmed Problem Urinary incontinence (947779873) Urinary incontinence (R32) Active confirmed Problem Diabetes mellitus uncontrolled (388965380) Uncontrolled diabetes mellitus (E11.65) Active confirmed Problem Cystitis caused by Mar (disorder) (978117977) Yeast cystitis (B37.41) Active confirmed Problem Hysterectomy (291478959) S/P total hysterectomy (Z90.710) Active confirmed Problem Colovesical fistula (17991710) Colovesical fistula (N32.1) Active confirmed Plan Of Treatment Pending Test Test Name Order Date CT Abd & Pel[place] & [place] [id number] 06/24/2023 BUN, Creatinine 06/24/2023 Insurance Providers Payer Name Payer Address Payer Phone Subscriber Number Group Number Insured Name Patient Relationship to Insured Coverage Start Date Coverage End Date [place] [address] [place], [place] [phone] [phone] [id number] Uriel Schulte Spouse - patient is the spouse of the insured Medical (General) History Medical History History ICD Code recurrent UTI bronchitis eczema hypertension back trouble hx of blood/plasma transfusion hernia diabetes hx of anemia arthritis heart disease crohn's disease blood clots OH/stent Surgical History Surgery Date(Month/Year) Did not list her paperwork r ead multiple-28 surgeries from 1985-present Hospitalization History Reason Date(Month/Year) multiple
--- NOTE | 2025-01-20 09:57 | W.ED.WEAKNES ---
HPI - Weakness General: Chief complaint: Weakness Stated complaint: lethargy/confusion Time Seen by Provider: 01/20/25 09:56 History of Present Illness: 64-year-old female hip fracture 3 months ago status post surgery, hypertension and also hypotension, type 2 diabetes, depression, PTSD, COPD, coronary artery disease, who presents to the emergency room with worsening weakness since her surgery. She has had declining strength and appetite which have become worse over the last 3 days. Her says they have seen their primary a few weeks ago and she was treated for UTI he does not know what antibiotic. No known fevers. He says sometimes she will seem slightly confused. Her blood pressure will be normal in the morning and low in the afternoons. She has not been needing to take her blood pressure medications. She has not been eating much. No chest pain. She says her legs feel very weak. She does not have any focal motor deficits. Currently she is oriented but slightly somnolent. Related Data Home Medications ?Medication ?Instructions ?Recorded ?Confirmed gabapentin 600 mg tablet 600 mg PO TID 10/28/24 01/20/25 olanzapine 7.5 mg tablet 7.5 mg PO DAILY 10/28/24 01/20/25 pantoprazole 40 mg tablet,delayed 40 mg PO DAILY 10/28/24 01/20/25 release prazosin 5 mg capsule 5 mg PO QPM 10/28/24 01/20/25 metoprolol succinate 25 mg 25 mg PO BID 01/20/25 01/20/25 tablet,extended release 24 hr Previous Rx's ?Medication ?Instructions ?Recorded epinephrine 0.3 mg/0.3 mL 0.3 mg (0.3 mL) IM Q4H PRN 10/30/23 injection, auto-injector (EpiPen anaphylaxis #2 ea 2-Redd) clopidogrel 75 mg tablet 75 mg PO DAILY #90 tabs 03/31/24 ipratropium 0.5 mg-albuterol 3 mg 3 ml inhalation Q4H PRN wheezing 03/31/24 (2.5 mg base)/3 mL nebulization #180 mL soln nitroglycerin 0.4 mg sublingual 0.4 mg sublingual Q5M PRN Chest 03/31/24 tablet (Nitrostat) Pain #20 tabs isosorbide mononitrate 60 mg 60 mg PO BID #180 tabs 06/04/24 tablet,extended release 24 hr Held on 10/31/24. Instructions: Resume on 11/23/24. until you see primary care for blood pressure check buspirone 15 mg tablet 15 mg PO BID #60 tabs 06/12/24 sertraline 100 mg tablet (Zoloft) 100 mg PO DAILY #30 tabs 06/12/24 trazodone 100 mg tablet 200 mg (2 x 100 mg) PO .HS PRN 06/12/24 insomnia #60 tabs 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 sensor (FreeStyle #2 ea 07/28/24 [place] 3 Sensor device) 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,equipment washer,cont #1 ea 07/28/24 (FreeStyle [place] 3 [place]) insulin glargine 100 unit/mL (3 10 unit (0.1 mL) SUBCUT QPM #15 mL 10/21/24 mL) subcutaneous pen (Lantus Solostar U-100 Insulin) albuterol sulfate 90 mcg/actuation 2 puff inhalation QID PRN 10/29/24 aerosol inhaler Shortness Of Breath #8.5 grams aspirin 81 mg tablet,delayed 81 mg PO DAILY 30 days #30 tabs 10/31/24 release clonazepam 0.5 mg tablet 0.5 mg PO BID #60 tabs 12/19/24 pen needle, diabetic 32 gauge x #100 ea 01/05/25 (TechLITE Pen Needle) Allergies Allergy/AdvReac Type Severity Reaction Status Date / Time ciprofloxacin (From Cipro) Allergy Severe Unresponsiv Verified 12/24/24 15:23 e codeine Allergy Severe ALGY-Anaphy Verified 12/24/24 15:23 laxis lidocaine Allergy Severe ALGY-Swell Verified 12/24/24 15:23 Lip/Tongue/Throat morphine Allergy Severe ALGY-Anaphy Verified 12/24/24 15:23 laxis Penicillins Allergy Severe ALGY-Swell Verified 12/24/24 15:23 Lip/Tongue/Throat procaine (From Novocain) Allergy Severe ALGY-Swell Verified 12/24/24 15:23 Lip/Tongue/Throat prochlorperazine (From Allergy Severe ALGY-Swell Verified 12/24/24 15:23 Compazine) Lip/Tongue/Throat adhesive tape Allergy Unknown Unknown Verified 12/24/24 15:23 Sulfa (Sulfonamide Allergy Unknown Unknown Verified 12/24/24 15:23 Antibiotics) methocarbamol Allergy ALGY-Redness Verified 12/24/24 15:23 of Skin Review of Systems Narrative: Constitutional symptoms: Negative except as documented in HPI. Skin symptoms: Negative except as documented in HPI. Eye symptoms: Negative except as documented in HPI. ENMT symptoms: Negative except as documented in HPI. Respiratory symptoms: Negative except as documented in HPI. Cardiovascular symptoms: Negative except as documented in HPI. Gastrointestinal symptoms: Negative except as documented in HPI. Genitourinary symptoms: Negative except as documented in HPI. Musculoskeletal symptoms: Negative except as documented in HPI. Neurologic symptoms: Negative except as documented in HPI. Psychiatric symptoms: Negative except as documented in HPI. Endocrine symptoms: Negative except as documented in HPI. [facility] PFSH: Medical History (Updated 01/20/25 @ 13:03 by Rekha Gonzalez MD) Cervical spondylosis Head injury due to trauma Concussion Neck pain Liver mass on CT 05/19 and LDCT 08/18; US 09/18 shows it is simple cyst Mixed dyslipidemia COPD (chronic obstructive pulmonary disease) Polyneuropathy associated with underlying disease CAD (coronary artery disease) one stent Type 2 diabetes mellitus Screening for lung cancer LDCT ordered for 09/18 Nicotine dependence, cigarettes, with other nicotine-induced disorders Psychiatric care Claudication Essential hypertension Neutrophilic leukocytosis Myocardial infarction acute 09/2019 Depression sees psychiatry Surgical History History of hip surgery R hip replacement after femoral neck fx 10/30/24 Hx of bilateral cataract extraction History of bladder surgery [facility] urology [facility] Home Hx of cervical spine surgery X 2; one done at [facility], one done at [facility] Home History of 3 sections S/P DONNA-BSO done b/c of ruptured uterus; no cancer History of incisional hernia repair Status post colonoscopy 8.9.23 [facility]--tubular adenoma and other polyps--repeat 3 yrs S/P cardiac cath one stent History of appendectomy H/O exploratory laparotomy Multiple bowel resections--3 X--done b/c of adhesions/blockages S/P cholecystectomy Family History Mother Breast cancer Sister Breast cancer Sister Breast cancer Brother Brain cancer Brother CAD (coronary artery disease) Social History Smoking and tobacco/nicotine status: current every day tobacco/nicotine user cigarettes Packs smoked per day: 0.5 [ Other cigarette details: started age 13] Alcohol intake: current Alcohol intake frequency: holidays/special occasions only Substance/Drug Use: never Household members: spouse and other Details: daughter, son in law and 2 grandkids Marital status: Number of children: 2 Highest education level completed: Bachelor's Degree Current occupational status: retired 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 Head: Normocephalic, atraumatic. Neck: Supple, trachea midline. Eye: Extraocular movements are intact. Ears, nose, mouth and throat: Tacky oral mucosa Cardiovascular: Regular, Normal peripheral perfusion. Respiratory: Lungs are clear to auscultation, respirations are non-labored, breath sounds are equal, Symmetrical chest wall expansion. Gastrointestinal: Soft, Nontender, Non distended Musculoskeletal: Normal ROM, no deformity. Neurological: Alert and oriented, no localizing weakness but patient's legs bilaterally are quite weak. She can barely lift them off the bed and can only hold them off the bed for a few seconds before she drips back down to the bed. She has decreased sensation in her feet and ankles and lower extremities. Psychiatric: Cooperative, appropriate mood & affect. Course Vital Signs: Vital signs: Vital Signs Temperature 97.7 F 01/20/25 09:43 Pulse Rate 65 01/20/25 13:16 Respiratory Rate 14 01/20/25 13:16 Blood Pressure 115/79 01/20/25 13:16 Pulse Oximetry 98 01/20/25 13:16 Oxygen Delivery Me thod Room Air 01/20/25 13:16 MDM - Weakness Medical Decision Making Medical decision making: Differential diagnosis for patient presenting with generalized weakness including but not limited to and based on the above HPI, review of systems and physical exam: Sepsis. Dehydration. Renal failure. Electrolyte abnormalities. Anemia. Congestive heart failure. Hypotension. Coronary syndrome. Hepatitis. Cirrhosis. Infections such as pneumonia, urinary tract infection, [place]ne illness, Cellulitis, Viral infections including influenza and Covid-19. Workup: labwork and lab/exam driven imaging ordered to evaluate, rule in and rule out above pathologies. EKG: Time 1003. Rate 72. Normal sinus rhythm, moderate nonspecific generalized ST-T abnormality/depression, no ectopy, normal AL & QRS intervals, This was reviewed and interpreted by myself the ER physician at [facility] Chest x-ray: No acute process. No infiltrate. No pneumothorax. This was reviewed and interpreted by myself the emergency room physician. I also reviewed the radiology report. Lab Review: Laboratory results were reviewed and interpreted by myself the emergency room physician. No leukocytosis. No anemia. No renal failure. Lactic is normal. Liver enzymes are normal. Urinalysis is positive for nitrate, leukocyte esterase, white cells and bacteria. CT head: No acute intracranial process. no intracranial hemorrhage, no evidence of infarct. no evidence of acute fracture.This was reviewed and interpreted by myself the ER physician. CT of the lumbar spine: Mild lumbar curve, moderate central canal stenosis and impingement of traversing L5 nerve roots bilaterally. Recommendation of spinal surgery consultation. This was reviewed and interpreted by myself the emergency room physician. I also reviewed the radiology report. I reviewed the patient's medical record. 64-year-old female hip fracture 3 months ago status post surgery, hypertension and also hypotension, type 2 diabetes, depression, PTSD, COPD, coronary artery disease, Reexamination: Patient remained stable. No increased work of breathing. No altered mental status. No focal motor deficits. Blood pressure has improved some. Consultation: I spoke with Dr. Caldwell who is not on-call currently but is working in the hospital and does all of the orthospine here. He recommends either discharge home and follow-up in clinic or admission to the hospitalist service and he can work her in to the OR on Saturday. Consultation: I spoke with Dr. Quinn who is on-call for the hospital service who agrees to admission. Dr. Quinn requesting MRI prior to admission to make sure there is not a need for emergent surgery. Dr. Caldwell agreed with this. He has preread this study and feel she has a bulging disc and this does not need emergent surgery and he should be able to operate on her on Saturday if needed. Assessment and plan: Lower extremity weakness Spinal stenosis Urinary tract infection Dehydration Low back pain ?IV Decadron for spinal stenosis ?Patient has a normal white count and lactic acid but does have a significant UTI and low blood pressure. Treating empirically for sepsis although I do not believe she is actually septic -1.5 L normal saline bolus. Fluid volumes based on ideal body weight. -Broad-spectrum antibiotics were administered. -Sepsis quality measures. -Lactic acid with a reflex was ordered. -Blood cultures were ordered. ?I reevaluated the patient's volume status after sepsis fluids were given. -I discussed the patient with the hospitalist on-call who is admitting the patient. - Discussed findings and plan with patient. Answered any questions. - All laboratory values were reviewed and interpreted personally by myself, the ER physician - All imaging was reviewed and interpreted personally by myself, the ER physician. - Evaluation and treatment of this problem were appropriate in the emergency setting Critical Care: -I spent a total of >35 minutes of critical care time managing the patient, independent of any other practitioner. -The time involved in the performance of separately reportable procedures was not counted towards critical care time. Lab Data 01/20/25 10:29 01/20/25 10:29 Radiology Impressions Chest X-Ray 01/20/25 09:59 IMPRESSION: 1. No acute cardiopulmonary finding. Head CT 01/20/25 10:07 IMPRESSION: 1. No acute findings. 2. Additional details as above. Lumbar Spine CT 01/20/25 10:07 IMPRESSION: 1. Mild lumbar curve. 2. Large central protrusion L4-5 with moderate central canal stenosis and impingement of traversing L5 nerve roots bilaterally. Recommend follow-up spine surgery consultation. Protrusion measures 8.2 mm in AP dimension. 3. No acute appearing compression fractures. Prior kyphoplasty changes T12 Laboratory Results WBC 7.08 10^3/uL (3.29-11.43) 01/20/25 10: RBC 4.51 10^6/uL (3.85-5.65) 01/20/25 10:29 Hgb 12.70 g/dL (11.27-16.99) 01/20/25 10: Hct 38.9 % (36-47) 01/20/25 10: MCV 86.3 fl (85-98) 01/20/25 10: MCH 28.2 pg (27-33) 01/20/25 10:29 MCHC 32.6 g/dL (30-55) 01/20/25 10: RDW 14.8 % (12.1-15.1) 01/20/25 10: Plt Count 291 10^3/cmm (157-399) 01/20/25 10:29 MPV 8.5 fL (7.4-10.4) 01/20/25 10:29 Neut % (Auto) 67.6 % 01/20/25 10:29 Lymph % (Auto) 25.0 % 01/20/25 10:29 [place] % (Auto) 6.1 % 01/20/25 10:29 Eos % (Auto) 0.7 % 01/20/25 10: Baso % (Auto) 0.3 % 01/20/25 10: Neut # (Auto) 4.79 10^3/uL (1.8-7.7) 01/20/25 10: Lymph # (Auto) 1.8 10^3/uL (0.8-4.8) 01/20/25 10:29 [place] # (Auto) 0.4 10^3/uL (0.2-0.9) 01/20/25 10:29 Eos # (Auto) 0.1 10^3/uL (0.0-0.8) 01/20/25 10: Baso # (Auto) 0.0 10^3/uL (0.0-0.1) 01/20/25 10: Nucleated RBC % (auto) 0 % 01/20/25 10: Nucleated RBCs # 0.0 /100WBC 01/20/25 10:29 Specimen Type Arterial 01/20/25 10:41 Sample Site Brachial, left 01/20/25 10:41 ABG pH 7.33 (7.35-7.45) L 01/20/25 10:41 ABG pCO2 42.0 mmHg (35-45) 01/20/25 10:41 ABG pO2 101.0 mmHg (80.0-100.0) H 01/20/25 10:41 ABG PO2/FiO2 Ratio 360 01/20/25 10:41 ABG HCO3 22.1 mmol/L (22-26) 01/20/25 10:41 ABG O2 Saturation 97.8 01/20/25 10:41 ABG Base Excess -3.7 mmol/L (-2.0-2.0) L 01/20/25 10:41 Philipp Test N/a 01/20/25 10:41 A-a O2 Gradient 6.2 mmHg (5-10) 01/20/25 10:41 Hematocrit 31.5 % (37-47) L 01/20/25 10:41 Hgb O2 Saturation 94.8 % (95-100) L 01/20/25 10:41 Carboxyhemoglobin 2.5 %THgb (0.4-20.1) 01/20/25 10:41 Methemoglobin 0.6 % (0.4-1.5) 01/20/25 10:41 Total Hemoglobin 10.3 g/dL (12-16) L 01/20/25 10:41 Sodium 141.0 mmol/L (131-143) 01/20/25 10:41 Potassium 2.9 mmol/L (3.5-5.0) L 01/20/25 10:41 Glucose 87.0 mg/dL (70-115) 01/20/25 10:41 Ionized Calcium 1.2 mmol/L (1.1-1.4) 01/20/25 10:41 O2 Delivery Device Nc 01/20/25 10:41 O2 Liters/Min 2.0 % 01/20/25 10:41 FiO2 28.0 % 01/20/25 10:41 Welding Machine Operator ID Amh 01/20/25 10:41 Sodium 139 mmol/L (136-145) 01/20/25 10:29 Potassium 3.4 mmol/L (3.5-5.1) L 01/20/25 10:29 Chloride 100 mmol/L (98-107) 01/20/25 10:29 Carbon Dioxide 24 mmol/L (22-29) 01/20/25 10:29 Anion Gap 18.4 (5-19) 01/20/25 10:29 BUN 9 mg/dL (8-23) 01/20/25 10:29 Creatinine 0.8 mg/dL (0.5-0.9) 01/20/25 10:29 GFR Calculation 72.0 mL/min (90-130) L 01/20/25 10:29 Glucose 102 mg/dL (65-115) 01/20/25 10:29 Calculated Osmolality 287 mOsm/kg (285-295) 01/20/25 10: Lactic Acid 0.6 mmol/L (0.5-2.2) 01/20/25 10: Calcium 9.3 mg/dL (8.5-10.5) 01/20/25 10: Total Bilirubin 0.4 mg/dL (0.15-1.2) 01/20/25 10: AST 14 U/L (0-32) 01/20/25 10: ALT 11 U/L (0-33) 01/20/25 10: Alkaline Phosphatase 67 U/L (35-105) 01/20/25 10: C-Reactive Protein 3.0 mg/L (0.0-4.9) 01/20/25 10: NT-Pro-B Natriuret Pep 158 pg/mL (0-125) H 01/20/25 10: Total Protein 6.9 g/dL (6.6-8.7) 01/20/25 10: Albumin 4.0 g/dL (3.5-5.2) 01/20/25 10: Globulin 2.9 g/dL (1.3-4.6) 01/20/25 10:29 Urine Color Dark yellow (Yellow) A 01/20/25 12:00 Urine Appearance Cloudy (CLEAR) A 01/20/25 12:00 Urine pH 5.5 (5-7) 01/20/25 12:00 Ur Specific Turner 1.027 (1.005-1.030) 01/20/25 12:00 Urine Protein 1+ (Negative) A 01/20/25 12:00 Urine Glucose (UA) Negative (Normal) 01/20/25 12:00 Urine Ketones 2+ (Negative) H 01/20/25 12:00 Urine Blood Negative (Negative) 01/20/25 12:00 Urine Nitrate Positive (Negative) A 01/20/25 12:00 Urine Bilirubin Negative (Negative) 01/20/25 12:00 Urine Urobilinogen 1.0 mg/dL (Negative) 01/20/25 12:00 Ur Leukocyte Esterase Trace (Negative) A 01/20/25 12:00 Urine RBC 0-2 /hpf (0-2) 01/20/25 12:00 Urine WBC 6-10 /hpf (0-5) 01/20/25 12:00 Ur Squamous Epith Cells 21-50 /hpf (0-5) H 01/20/25 12:00 Calcium Oxalate Crystal 0-4 /hpf H 01/20/25 12:00 Amorphous Sediment Not Reportable 01/20/25 12:00 Urine Bacteria 4+ /hpf (NONE) H 01/20/25 12:00 Hyaline Casts 2.46 /lpf 01/20/25 12:00 All radiology interpretation(s) finalized by discharge Discharge Plan Discharge Patient Disposition: Admitted As Inpatient Clinical Impression: Lumbar spinal stenosis, Weakness of both lower limbs, Decreased sensation of lower extremity, Urinary tract infection Condition: Stable Coding Level of Care Code ED Geography Head for Sonya Patrick
--- NOTE | 2025-01-20 09:59 | XR_ITS ---
WS: [id number] Exam: XR chest 1V portable [id number] Date/Time of Exam: 01/20/2025 10:29 AM Reason For Exam: Weakness Comparison 10/28/2024. Lungs are fully expanded and clear. Normal cardiomediastinal silhouette. No pleural effusions. Extensive atherosclerotic plaquing of the thoracic aorta. Postop changes in the upper abdomen and vertebroplasty of T12. Fusion hardware partially visualized in the lower C-spine. XR/XR chest 1V portable [id number] IMPRESSION: 1. No acute cardiopulmonary finding.
--- NOTE | 2025-01-20 09:59 | ECG_ITS ---
[facility] Date: 2025-01-20 Pat Name: Yessi Schulte Department: Room: Gender: Female Clinical Research Director: : 1960 Requested By: Rekha Figueroa Order Number: [id number] Gen MD: Eric Moody M.D. Measurements Intervals Pearl Rate: 72 P: 67 HI: 151 QRS: 77 QRSD: 89 T: 74 QT: 442 QTc: 485 Interpretive Statements SINUS RHYTHM ST DEVIATION AND MODERATE T-WAVE ABNORMALITY, CONSIDER ANTERIOR ISCHEMIA [-0.1+ mV T-WAVE IN V3/V4] Compared to ECG 10/26/2024 21:57:42 ST depression has mildly increased Electronically Signed On 01-20-2025 22:28:16 CDT by Eric Moody M.D. [email or web address]
--- NOTE | 2025-01-20 10:07 | CT_ITS ---
WS: [id number] CT LUMBAR SPINE TECHNIQUE: Noncontrast CT of the lumbar spine with coronal and sagittal reformatted images. CLINICAL INFORMATION: Lower extremity weakness, back pain COMPARISON: 2017 DLP: 330.[address] scans at [facility] use at least one of these dose optimization techniques: automated exposure control; mA and/or kV adjustment per patient size (includes targeted exams where dose is matched to clinical indication); or iterative reconstruction. FINDINGS: Mild lumbar curve. No acute compression. Prior prior kyphoplasty changes T12. L1-L2: Normal. L2-L3: Mild annular bulging. Slight narrowing the LEFT subarticular recess. Mild facet arthropathy. L3-L4: Mild annular bulging. Slight narrowing of the LEFT greater than RIGHT subarticular recess. Mild LEFT foraminal narrowing. Mild facet arthropathy. L4-L5: Prominent central disc protrusion with moderate central canal stenosis. Impingement of the traversing L5 nerve roots bilaterally. There is a small protrusion in this location in 2017 but significantly larger today. Moderate facet arthropathy. L5-S1: Foramen appear patent. Tiny central protrusion. Spinal canal and foramen are patent. Moderate facet arthropathy. Vascular calcification. Slight nodularity LEFT adrenal gland. Subsegmental atelectasis in the lung bases. Cholecystectomy clips. Aortic calcification. CT/CT lumbar spine wo con* [id number] IMPRESSION: 1. Mild lumbar curve. 2. Large central protrusion L4-5 with moderate central canal stenosis and impi ngement of traversing L5 nerve roots bilaterally. Recommend follow-up spine kandace rita consultation. Protrusion measures 8.2 mm in AP dimension. 3. No acute appearing compression fractures. Prior kyphoplasty changes T12
--- NOTE | 2025-01-20 10:07 | CTR_ITS ---
PROCEDURE INFORMATION: Exam: CT Head Without Contrast Exam date and time: 01/20/2025 10:51 AM Age: 64 years old Clinical indication: Altered mental status/memory loss; Confusion or disorientation; Weakness, confusion, lower extremity weakness, back pain TECHNIQUE: Imaging protocol: Computed tomography of the head without contrast. Radiation optimization: All CT scans at this facility use at least one of these dose optimization techniques: automated exposure control; mA and/or kV adjustment per patient size (includes targeted exams where dose is matched to clinical indication); or iterative reconstruction. COMPARISON: CT head wo con* [id number] 10/27/2024 11:19 AM RADIATION DOSE METRICS: Total DLP (mGy-cm): 900.53 FINDINGS: Brain: Mild, diffuse atrophy of the brain.There is ill-defined, fairly symmetric low-density within the cerebral deep white matter bilaterally which is likely the sequela of chronic ischemic change due to small vessel disease. Chronic lacunar infarcts in the basal ganglia regions bilaterally. No CT evidence of mass effect, intracranial hemorrhage, or acute infarct. Otherwise, unremarkable. Cerebral ventricles: Mildly prominent ventricles due to the atrophy. Otherwise, unremarkable. Paranasal sinuses: Visualized sinuses are unremarkable. No fluid levels. Mastoid air cells: Visualized mastoid air cells are well aerated. Auditory system: Clear middle ear cavities bilaterally. Bones: Unremarkable. No acute fracture. Soft tissues: Otherwise, unremarkable. CT/CT head wo con* [id number] IMPRESSION: 1. No acute findings. 2. Additional details as above.
[2025-01-20 10:36] LABS: Hematocrit 38.9 % (36-47); Hemoglobin 12.70 g/dL (11.27-16.99); Mean Corpuscular HGB Conc 32.6 g/dL (30-55); Mean Corpuscular Hemoglobin 28.2 pg (27-33); Mean Corpuscular Volume 86.3 fl (85-98); Nucleated Red Blood Cells % 0 %; Platelet Count 291 10^3/cmm (157-399); Red Blood Count 4.51 10^6/uL (3.85-5.65); White Blood Count 7.08 10^3/uL (3.29-11.43)
[2025-01-20 10:52] LABS: ABG PCO2 42.0 mmHg (35-45); ABG PH Result 7.33 (7.35-7.45); Alveolar-Arterial Oxygen Gradi 6.2 mmHg (5-10); Arterial Blood Gas Hematocrit 31.5 % (37-47); Blood Gas LPM 2.0 %; Blood Gas Operator Identificat AMH; Blood Gas Sample Site Brachial, left; Blood Gas Sample Type Arterial; Carboxyhemoglobin 2.5 %THgb (0.4-20.1); Glucose Level-ABG 87.0 mg/dL (70-115); HCO3 ABG 22.1 mmol/L (22-26); Ionized Calcium Level - ABG 1.2 mmol/L (1.1-1.4); Methemoglobin 0.6 % (0.4-1.5); Oxygen Saturation ABG 97.8; PO2 ABG 101.0 mmHg (80.0-100.0); PO2 FiO2 Ratio Arterial Blood 360; Potassium Level - ABG 2.9 mmol/L (3.5-5.0); Sodium Level - ABG 141.0 mmol/L (131-143)
--- NOTE | 2025-01-20 11:01 | PC.PHAR ---
Spouse states Patient has her Medical card for THC gummies adn she takes 1/2 to 1 25mg gummy as needed for leg cramps and pain. Spouse also states Patient smokes cigarettes and Marijuana . She smokes the marijuana as neede for pain adn to help with appetite.
[2025-01-20 11:06] LABS: Lactic Sepsis W/Reflex 0.6 mmol/L (0.5-2.2)
[2025-01-20 11:18] LABS: Alanine Aminotransferase 11 U/L (0-33); Albumin Level 4.0 g/dL (3.5-5.2); Alkaline Phosphatase 67 U/L (35-105); Anion Gap 18.4 (5-19); Aspartate Amino Transferase 14 U/L (0-32); Blood Urea Nitrogen 9 mg/dL (8-23); Calcium 9.3 mg/dL (8.5-10.5); Carbon Dioxide 24 mmol/L (22-29); Chloride 100 mmol/L (98-107); Creatinine Clr Calc Pharmacy 55.0362; Globulin 2.9 g/dL (1.3-4.6); Glucose 102 mg/dL (65-115); NT Pro B Type Natriuretic Pept 158 pg/mL (0-125); Osmolality Calculated 287 mOsm/kg (285-295); Potassium 3.4 mmol/L (3.5-5.1); Sodium 139 mmol/L (136-145); Total Protein 6.9 g/dL (6.6-8.7)
[2025-01-20 12:14] LABS: Glucose Urine UA Negative (Normal); Nitrate Urine Positive (Negative); Specific Gravity, Urine 1.027 (1.005-1.030)
--- NOTE | 2025-01-20 12:49 | MR_ITS ---
WS: [id number] MRI LUMBAR SPINE NONCONTRAST HISTORY: abnormal ct, weakness COMPARISON: CT lumbar spine 01/20/2025 TECHNIQUE: Sagittal and axial multisequence imaging is submitted. Prior anterior cervical fusion from C4-C7. Corpectomy at C5 and C6. There is mild C4 encroachment upon the central cervical canal. Mild increase in the lumbar lordosis. No acute fracture or marrow edema. Prior vertebroplasty at T12 with slight loss in height. Disc spaces and vertebral body heights are well-preserved. Conus terminates normally at L1-2 disc level. Study is compromised by motion artifact during the examination despite repeated attempts at achieving images without artifact. L1-L2: Mild foraminal narrowing. L2-L3: Mild disc bulging with facet and ligamentum flavum hypertrophy. Mild foraminal stenosis. L3-L4: Annular disc bulging with ligamentum flavum and facet arthritis. Progression of central and foraminal stenosis since 2019. C described central disc protrusion is smaller. There is mild central and subarticular recess and moderate foraminal stenosis. L4-L5: Large central disc protrusion deforming the thecal sac. There is displacement of the thecal sac and the nerve roots. Disc protrusion does contact the traversing L5 nerve roots. Disc protrusion measures 9 x 10 mm. Previously described central disc protrusion in 2019 has increased in size. Ligamentum flavum and facet arthritis. Moderate central, subarticular recess and mild foraminal stenosis. L5-S1: Small central disc protrusion. Very mild foraminal stenosis. Paravertebral soft tissues are negative. MR/MR lumbar spine wo con* [id number] IMPRESSION: 1. Quality of this examination is compromised by significant motion artifact. 2. Large central disc protrusion at L4-5 contacting and deforming the thecal s ac and contacting the traversing L5 nerve roots. Moderate central, subarticular recess and mild foraminal stenosis. 3. Mild central stenosis at L3-4 with subarticular recess and moderate foramin al stenosis. 4. Mild foraminal narrowing at L1-2, L2-3 and L5-S1. 5. Prior vertebroplasty at T12.
[2025-01-20 12:50] LABS: UA Slide Review UA Slide Review Perf
[2025-01-20] MEDS: cefepime 2,000 mg SDV 2000 MG IVP (13:15)
--- NOTE | 2025-01-20 16:10 | PM.HP ---
Providers/Chief Complaint Primary Care Provider: Tiny Graff MD Chief Complaint: lethargy/confusion History of Present Illness Yessi Schulte is a 64 year old female With past medical history of hip fracture 3 months ago status post surgery, hypertension, type 2 diabetes mellitus, depression, PTSD, COPD, coronary disease presented to the emergency room with worsening weakness since her surgery. She has become very deconditioned and her strength has declined and also has some loss of appetite for the last 3 days. Her states that they saw their PCP few weeks ago and at that time she was treated for a UTI. Denies any fever nausea vomiting diarrhea. Denies chest pain, shortness of breath. They do report that their legs feel really weak and heavy.. She has not been taking her blood pressure medication as blood pressure has been running low lately. Denies any focal neurological deficits. Patient appeared somnolent this morning to ER doctor. At time of evaluation, able to move all 4 extremities, able to lift leg off the bed to some extent and able to adjust her position in bed using her hands. No saddle anesthesia present. Does report left leg numbness Medications/Allergies Home Medications ?Medication ?Instructions ?Recorded ?Confirmed ?Last Taken ?Type epinephrine 0.3 mg/0.3 mL 0.3 mg (0.3 mL) IM Q4H PRN 10/30/23 01/20/25 Unknown Rx injection, auto-injector (EpiPen anaphylaxis #2 ea 2-Redd) clopidogrel 75 mg tablet 75 mg PO DAILY #90 tabs 03/31/24 01/20/25 01/19/25 Rx ipratropium 0.5 mg-albuterol 3 mg 3 ml inhalation Q4H PRN wheezing 03/31/24 01/20/25 Unknown Rx (2.5 mg base)/3 mL nebulization #180 mL soln nitroglycerin 0.4 mg sublingual 0.4 mg sublingual Q5M PRN Chest 03/31/24 01/20/25 Unknown Rx tablet (Nitrostat) Pain #20 tabs isosorbide mononitrate 60 mg 60 mg PO BID #180 tabs 06/04/24 01/20/25 10/26/24 Rx tablet,extended release 24 hr Held on 10/31/24. Instructions: Resume on 11/23/24. 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,digital marketing executive,cont #1 ea 07/28/24 01/20/25 Unknown Rx (FreeStyle [place] 3 [place]) insulin glargine 100 unit/mL (3 10 unit (0.1 mL) SUBCUT QPM #15 mL 10/21/24 01/20/25 01/19/25 20:00 Rx mL) subcutaneous pen (Lantus Solostar U-100 Insulin) gabapentin 600 mg tablet 600 mg PO TID 10/28/24 01/20/25 01/19/25 History olanzapine 7.5 mg tablet 7.5 mg PO DAILY 10/28/24 01/20/25 01/19/25 History pantoprazole 40 mg tablet,delayed 40 mg PO DAILY 10/28/24 01/20/25 01/19/25 History release prazosin 5 mg capsule 5 mg PO QPM 10/28/24 01/20/25 01/19/25 20:00 History albuterol sulfate 90 mcg/actuation 2 puff inhalation QID PRN 10/29/24 01/20/25 Unknown Rx aerosol inhaler Shortness Of Breath #8.5 grams aspirin 81 mg tablet,delayed 81 mg PO DAILY 30 days #30 tabs 10/31/24 01/20/25 01/19/25 Rx release clonazepam 0.5 mg tablet 0.5 mg PO BID #60 tabs 12/19/24 01/20/25 01/19/25 Rx pen needle, diabetic 32 gauge x #100 ea 01/05/25 01/20/25 Unknown Rx (TechLITE Pen Needle) metoprolol succinate 25 mg 25 mg PO BID 01/20/25 01/20/25 01/19/25 History tablet,extended release 24 hr Allergies Allergy/AdvReac Type Severity Reaction Status Date / Time ciprofloxacin (From Cipro) Allergy Severe Unresponsiv Verified 12/24/24 15:23 e codeine Allergy Severe ALGY-Anaphy Verified 12/24/24 15:23 laxis lidocaine Allergy Severe ALGY-Swell Verified 12/24/24 15:23 Lip/Tongue/Throat morphine Allergy Severe ALGY-Anaphy Verified 12/24/24 15:23 laxis Penicillins Allergy Severe ALGY-Swell Verified 12/24/24 15:23 Lip/Tongue/Throat procaine (From Novocain) Allergy Severe ALGY-Swell Verified 12/24/24 15:23 Lip/Tongue/Throat prochlorperazine (From Allergy Severe ALGY-Swell Verified 12/24/24 15:23 Compazine) Lip/Tongue/Throat adhesive tape Allergy Unknown Unknown Verified 12/24/24 15:23 Sulfa (Sulfonamide Allergy Unknown Unknown Verified 12/24/24 15:23 Antibiotics) methocarbamol Allergy ALGY-Redness Verified 12/24/24 15:23 of Skin PFSH Acute PFSH: Medical History (Updated 01/21/25 @ 10:12 by Wai Caldwell DO) Cervical spondylosis Head injury due to trauma Concussion Neck pain Liver mass on CT 05/19 and LDCT 08/18; US 09/18 shows it is simple cyst Mixed dyslipidemia COPD (chronic obstructive pulmonary disease) Polyneuropathy associated with underlying disease CAD (coronary artery disease) one stent Type 2 diabetes mellitus Screening for lung cancer LDCT ordered for 09/18 Nicotine dependence, cigarettes, with other nicotine-induced disorders Psychiatric care Claudication Essential hypertension Neutrophilic leukocytosis Myocardial infarction acute 09/2019 Depression sees psychiatry Surgical History History of hip surgery R hip replacement after femoral neck fx 10/30/24 Hx of bilateral cataract extraction History of bladder surgery [facility]. Home Hx of cervical spine surgery X 2; one done at [facility], one done at [facility]. Home History of 3 sections S/P DONNA-BSO done b/c of ruptured uterus; no cancer History of incisional hernia repair Status post colonoscopy 8.9.23 [facility]--tubular adenoma and other polyps--repeat 3 yrs S/P cardiac cath one stent History of appendectomy H/O exploratory laparotomy Multiple bowel resections--3 X--done b/c of adhesions/blockages S/P cholecystectomy Family History Mother Breast cancer Sister Breast cancer Sister Breast cancer Brother Brain cancer Brother CAD (coronary artery disease) Social History Smoking and tobacco/nicotine status: current every day tobacco/nicotine user cigarettes Packs smoked per day: 0.5 [ Other cigarette details: started age 13] Alcohol intake: current Alcohol intake frequency: holidays/special occasions only Substance/Drug Use: never Household members: spouse and other Details: daughter, son in law and 2 grandkids Marital status: Number of children: 2 Highest education level completed: Bachelor's Degree Current occupational status: retired Previous occupational history: [employer] Female Reproductive History: Spontaneous abortions: No Vitals/I&O/Wt Last Vital Signs Temp 97.7 F 01/20/25 09:43 Pulse 65 01/20/25 15:52 Resp 16 01/20/25 15:52 BP 104/87 01/20/25 15:52 Pulse Ox 98 01/20/25 15:52 O2 Del Method Nasal Cannula 01/20/25 15:52 O2 Flow Rate 2 01/20/25 15:52 01/20/25 01/20/25 01/20/25 06:59 14:59 22:59 Intake Total 1000 / 1000 500 / 1500 Balance 1000 / 1000 500 / 1500 Weight last 48 hrs Weight 52.617 kg Physical Exam Narrative: General: Alert oriented x2, appears deconditioned and weak. HEENT: Normocephalic, atraumatic, EOMI, Cardio: Regular rate rhythm, normal S1-S2, Respiratory: Fair to auscultation bilaterally GI: Abdomen soft, nontender, bowel sounds + Extremities: No edema bilateral lower extremities Able to move all 4 extremities. able to lift leg off the bed to some extent and able to adjust her position in bed using her hands. No saddle anesthesia present. Does report left leg numbness Data 01/21/25 03:08 01/21/25 03:08 Micro: Microbiology 01/20/25 10:38 Blood Culture - Preliminary Blood SPECIMEN COLLECTED 01/20/25 10:33 Blood Culture - Preliminary Blood SPECIMEN COLLECTED A&P Assessment and plan 1. Generalized anxiety disorder: 2. Depression: 3. HTN (hypertension) with goal to be determined: 4. CAD (coronary artery disease): 5. Type II diabetes mellitus with manifestations: 6. GERD without esophagitis: 7. Cervical radiculopathy: 8. COPD (chronic obstructive pulmonary disease): 9. Generalized weakness: Plan: #Deconditioning weakness, unable to walk #Recent hip surgery 3 months ago secondary to fracture. #Type 2 diabetes mellitus #Depression #COPD #Coronary artery disease #Hypertension but now it is hypotensive #L4-L5 Lumbar radiculopathy #UTI ? MRI lumbar spine obtained in ER does not show evidence of cauda equina. Large central disc protrusion at L4-L5 contacting and deforming the thecal sac and contacting the traversing L5 nerve roots. Moderate central subarticular recess with mild foraminal stenosis. ? Consult spine surgery. Discussed with Dr. Caldwell. He states that there is no emergent need for surgery at this time he may plan for decompression in next few days however UTI needs to be treated first. ? Urinalysis positive suggestive of UTI. Check urine culture, blood culture ? Placed on Zosyn. ? Patient is allergic to ciprofloxacin. ? Will place Boogie catheter at this time. ? Patient did receive dexamethasone 10 IV x 1 in the ER. Discussed with Dr. Caldwell. Continue dexamethasone 10 IV q6H. ? He will see patient in consultation and make further recommendations. ? Continue aspirin. I will hold Plavix in anticipation of possible surgery. ? Continue gabapentin, metoprolol succinate, pantoprazole, olanzapine, sertraline, trazodone. ? Hold prazosin, - Blood pressures are soft. ? Patient had a coronary angiogram in 2022 with patent RCA stents. ? Consult case management for possible skilled nursing placement ? Check PT OT Continue IV fluids normal saline continuous - Sliding scale insulin low-dose intensity. Full code Due to prophylaxis: Heparin SQ twice daily PDMP PDMP Reviewed: Not Reviewed Attestations Medical Necessity Statement*: Greater than 2 overnight stay for management of UTI, deconditioning weakness unable to walk and L4-L5 lumbar radiculopathy Diagnoses Generalized anxiety disorder F41.1 Depression F32.A HTN (hypertension) with goal to be determined I10 CAD (coronary artery disease) I25.10 Type II diabetes mellitus with manifestations E11.8 GERD without esophagitis K21.9 Cervical radiculopathy M54.12 COPD (chronic obstructive pulmonary disease) J44.9 Generalized weakness R53.1
[2025-01-20] MEDS: metoprolol succinate ER (24 HR) 25 mg Tablet PO (22:40)
[2025-01-21] MEDS: cefepime 1,000 mg SDV 1000 MG IVP ×2 (00:35→12:51)
[2025-01-21 00:44] VITALS: BP 112/74; PULSE 74; RESP 15; TEMP 36.2; O2SAT 94
[2025-01-21 03:39] LABS: Hematocrit 33.4 % (36-47); Hemoglobin 11.00 g/dL (11.27-16.99); Mean Corpuscular HGB Conc 32.9 g/dL (30-55); Mean Corpuscular Hemoglobin 28.0 pg (27-33); Mean Corpuscular Volume 85.0 fl (85-98); Nucleated Red Blood Cells % 0 %; Platelet Count 282 10^3/cmm (157-399); Red Blood Count 3.93 10^6/uL (3.85-5.65); White Blood Count 3.33 10^3/uL (3.29-11.43)
[2025-01-21 03:55] LABS: Alanine Aminotransferase 9 U/L (0-33); Albumin Level 3.5 g/dL (3.5-5.2); Alkaline Phosphatase 59 U/L (35-105); Anion Gap 14.4 (5-19); Aspartate Amino Transferase 9 U/L (0-32); Blood Urea Nitrogen 10 mg/dL (8-23); Calcium 9.0 mg/dL (8.5-10.5); Carbon Dioxide 22 mmol/L (22-29); Chloride 111 mmol/L (98-107); Creatinine Clr Calc Pharmacy 51.5016; Globulin 2.8 g/dL (1.3-4.6); Glucose 103 mg/dL (65-115); Magnesium 1.9 mg/dL (1.7-2.3); Osmolality Calculated 297 mOsm/kg (285-295); Potassium 3.4 mmol/L (3.5-5.1); Sodium 144 mmol/L (136-145); Total Protein 6.3 g/dL (6.6-8.7)
[2025-01-21 04:00] VITALS: BP 115/73; PULSE 69; RESP 17; TEMP 36.7; O2SAT 94
[2025-01-21 07:59] VITALS: BP 138/77; PULSE 61; RESP 16; TEMP 36.6; O2SAT 92
[2025-01-21] MEDS: metoprolol succinate ER (24 HR) 25 mg Tablet PO (08:15)
[2025-01-21 08:44] LABS: Troponin(5th) Baseline 9 ng/L (0-10)
--- NOTE | 2025-01-21 08:57 | ECG_ITS ---
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 Measurements Intervals [place] Rate: 65 P: 36 [place]: 142 QRS: 74 QRSD: 88 T: 73 QT: 458 QTc: 478 Interpretive Statements SINUS RHYTHM ST DEVIATION AND MODERATE T-WAVE ABNORMALITY, CONSIDER ANTERIOR ISCHEMIA [-0.1+ mV T-WAVE IN V3/V4] Compared to ECG 01/20/2025 10:03:43 No significant changes Electronically Signed On 01-22-2025 22:44:15 CDT by Tanvir Thrasher M.D. [email or web address]
--- NOTE | 2025-01-21 10:09 | PM.CONSULT ---
Providers/Reason For Consult Consulting Physician/Specialty*: Hospitalist Reason for Consult*: Back pain and weakness in legs Attending Physician: Brigida Quinn MD Primary Care Provider: Tiny Graff MD History of Present Illness History of Present Illness Yessi Schulte is a 64 year old female hip fracture 3 months ago status post surgery, hypertension and also hypotension, type 2 diabetes, depression, PTSD, COPD, coronary artery disease, who presents to the emergency room with worsening weakness since her surgery. She has had declining strength and appetite which have become worse over the last 3 days. Her says they have seen their primary a few weeks ago and she was treated for UTI he does not know what antibiotic. No known fevers. He says sometimes she will seem slightly confused. Her blood pressure will be normal in the morning and low in the afternoons. She has not been needing to take her blood pressure medications. She has not been eating much. No chest pain. She says her legs feel very weak. Review of Systems Const: Denies: fever(s) or chills Card: Denies: chest pain or dyspnea on exertion Resp: Denies: dyspnea, productive cough or wheezing GI: Denies: abdominal pain, nausea or vomiting : Denies: difficulty voiding Musc: Reports: joint pain, joint swelling and limited range of motion Skin/Breast: Denies: changes in skin color or dry skin Neuro: Denies: numbness in extremities or weakness in extremities Psych: Denies: anxiety [place]/Lymph: Denies: easy bruising or easy bleeding Medications/Allergies Home Medications ?Medication ?Instructions ?Recorded ?Confirmed ?Last Taken ?Type epinephrine 0.3 mg/0.3 mL 0.3 mg (0.3 mL) IM Q4H PRN 10/30/23 01/20/25 Unknown Rx injection, auto-injector (EpiPen anaphylaxis #2 ea 2-Redd) clopidogrel 75 mg tablet 75 mg PO DAILY #90 tabs 03/31/24 01/20/25 01/19/25 Rx ipratropium 0.5 mg-albuterol 3 mg 3 ml inhalation Q4H PRN wheezing 03/31/24 01/20/25 Unknown Rx (2.5 mg base)/3 mL nebulization #180 mL soln nitroglycerin 0.4 mg sublingual 0.4 mg sublingual Q5M PRN Chest 03/31/24 01/20/25 Unknown Rx tablet (Nitrostat) Pain #20 tabs isosorbide mononitrate 60 mg 60 mg PO BID #180 tabs 06/04/24 01/20/25 10/26/24 Rx tablet,extended release 24 hr Held on 10/31/24. Instructions: Resume on 11/23/24. 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 #1 ea 07/28/24 01/20/25 Unknown Rx (FreeStyle [place] 3 Lester) insulin glargine 100 unit/mL (3 10 unit (0.1 mL) SUBCUT QPM #15 mL 10/21/24 01/20/25 01/19/25 20:00 Rx mL) subcutaneous pen (Lantus Solostar U-100 Insulin) gabapentin 600 mg tablet 600 mg PO TID 10/28/24 01/20/25 01/19/25 History olanzapine 7.5 mg tablet 7.5 mg PO DAILY 10/28/24 01/20/25 01/19/25 History pantoprazole 40 mg tablet,delayed 40 mg PO DAILY 10/28/24 01/20/25 01/19/25 History release prazosin 5 mg capsule 5 mg PO QPM 10/28/24 01/20/25 01/19/25 20:00 History albuterol sulfate 90 mcg/actuation 2 puff inhalation QID PRN 10/29/24 01/20/25 Unknown Rx aerosol inhaler Shortness Of Breath #8.5 grams aspirin 81 mg tablet,delayed 81 mg PO DAILY 30 days #30 tabs 10/31/24 01/20/25 01/19/25 Rx release clonazepam 0.5 mg tablet 0.5 mg PO BID #60 tabs 12/19/24 01/20/25 01/19/25 Rx pen needle, diabetic 32 gauge x #100 ea 01/05/25 01/20/25 Unknown Rx (TechLITE Pen Needle) metoprolol succinate 25 mg 25 mg PO BID 01/20/25 01/20/25 01/19/25 History tablet,extended release 24 hr Allergies Allergy/AdvReac Type Severity Reaction Status Date / Time ciprofloxacin (From Cipro) Allergy Severe Unresponsiv Verified 12/24/24 15:23 e codeine Allergy Severe ALGY-Anaphy Verified 12/24/24 15:23 laxis lidocaine Allergy Severe ALGY-Swell Verified 12/24/24 15:23 Lip/Tongue/Throat morphine Allergy Severe ALGY-Anaphy Verified 12/24/24 15:23 laxis Penicillins Allergy Severe ALGY-Swell Verified 12/24/24 15:23 Lip/Tongue/Throat procaine (From Novocain) Allergy Severe ALGY-Swell Verified 12/24/24 15:23 Lip/Tongue/Throat prochlorperazine (From Allergy Severe ALGY-Swell Verified 12/24/24 15:23 Compazine) Lip/Tongue/Throat adhesive tape Allergy Unknown Unknown Verified 12/24/24 15:23 Sulfa (Sulfonamide Allergy Unknown Unknown Verified 12/24/24 15:23 Antibiotics) methocarbamol Allergy ALGY-Redness Verified 12/24/24 15:23 of Skin Current Medications Generic Name Dose Route Start Last Admin Trade Name [place] PRN Reason Stop Dose Admin Aspirin 81 mg 01/21/25 09:00 01/21/25 08:15 Aspirin 81 Mg Ec Tablet PO 81 mg DAILY ISABELLA Administration Buspirone HCl 15 mg 01/20/25 21:30 01/21/25 08:16 Buspirone 10 Mg Tablet PO 15 mg BID ISABELLA Administration Cefepime HCl 1,000 mg 01/21/25 01:30 01/21/25 00:35 Cefepime 1,000 Mg Sdv IVP 1,000 mg Q12H ISABELLA Administration Protocol Clonazepam 0.5 mg 01/20/25 20:58 01/21/25 08:15 Clonazepam 0.5 Mg Tablet PO 0.5 mg BID ISABELLA Administration Clopidogrel Bisulfate 75 mg 01/21/25 09:00 01/21/25 08:15 Clopidogrel 75 Mg Tablet PO 75 mg DAILY ISABELLA Administration Dexamethasone 10 mg 01/20/25 19:00 01/21/25 05:58 Dexamethasone 10 Mg/Ml Inj IVP 10 mg Q6H ISABELLA Administration Gabapentin 600 mg 01/20/25 21:30 01/21/25 08:15 Gabapentin 300 Mg Capsule PO 600 mg TID ISABELLA Administration Sodium Chloride 1,000 mls @ 100 mls/hr 01/20/25 20:58 01/21/25 08:16 Sodium Chloride 0.9% IV 100 mls/hr .Q10H ISABELLA Administration Insulin Human Lispro 0 unit 01/20/25 20:58 01/21/25 08:14 Insulin Lispro 100 Unit/1 Ml SUBCUT 4 unit WM&BEDTIME ISABELLA Administration Protocol Isosorbide Mononitrate 60 mg 01/20/25 20:58 01/21/25 08:14 Isosorbide Mononitrate Er 60 Mg Tablet PO 60 mg BID ISABELLA Administration Metoprolol Succinate 25 mg 01/20/25 20:58 01/21/25 08:15 Metoprolol Succinate Er (24 Hr) 25 Mg Tablet PO 25 mg BID ISABELLA Administration Olanzapine 7.5 mg 01/21/25 09:00 01/21/25 08:15 Olanzapine 5 Mg Tablet PO 7.5 mg DAILY ISABELLA Administration Pantoprazole Sodium 40 mg 01/21/25 09:00 01/21/25 08:[address] 40 Mg Tablet PO 40 mg DAILY ISABELLA Administration Sertraline HCl 100 mg 01/21/25 09:00 01/21/25 08:15 Sertraline 100 Mg Tablet PO 100 mg DAILY ISABELLA Administration PFSH Acute PFSH: Medical History (Updated 01/21/25 @ 10:12 by Wai Caldwell DO) Cervical spondylosis Head injury due to trauma Concussion Neck pain Liver mass on CT 05/19 and LDCT 08/18; US 09/18 shows it is simple cyst Mixed dyslipidemia COPD (chronic obstructive pulmonary disease) Polyneuropathy associated with underlying disease CAD (coronary artery disease) one stent Type 2 diabetes mellitus Screening for lung cancer LDCT ordered for 09/18 Nicotine dependence, cigarettes, with other nicotine-induced disorders Psychiatric care Claudication Essential hypertension Neutrophilic leukocytosis Myocardial infarction acute 09/2019 Depression sees psychiatry Surgical History History of hip surgery R hip replacement after femoral neck fx 10/30/24 Hx of bilateral cataract extraction History of bladder surgery [facility]. Home Hx of cervical spine surgery X 2; one done at [facility], one done at [facility]. Home History of 3 sections S/P DONNA-BSO done b/c of ruptured uterus; no cancer History of incisional hernia repair Status post colonoscopy 8.9.23 [facility]--tubular adenoma and other polyps--repeat 3 yrs S/P cardiac cath one stent History of appendectomy H/O exploratory laparotomy Multiple bowel resections--3 X--done b/c of adhesions/blockages S/P cholecystectomy Family History Mother Breast cancer Sister Breast cancer Sister Breast cancer Brother Brain cancer Brother CAD (coronary artery disease) Social History Smoking and tobacco/nicotine status: current every day tobacco/nicotine user cigarettes Packs smoked per day: 0.5 [ Other cigarette details: started age 13] Alcohol intake: current Alcohol intake frequency: holidays/special occasions only Substance/Drug Use: never Household members: spouse and other Details: daughter, son in law and 2 grandkids Marital status: Number of children: 2 Highest education level completed: Bachelor's Degree Current occupational status: 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 Female Reproductive History: Spontaneous abortions: No Vitals/I&O/Wt Last Vital Signs Temp 97.9 F 01/21/25 07:59 Pulse 61 01/21/25 07:59 Resp 16 01/21/25 07:59 BP 138/77 01/21/25 07:59 Pulse Ox 92 01/21/25 07:59 O2 Del Method Room Air 01/21/25 04:00 O2 Flow Rate 2 01/20/25 15:52 01/20/25 01/21/25 01/21/25 22:59 06:59 14:59 Intake Total 1400 / 2400 360 / 2760 1078.333 / 1078.333 Balance 1400 / 2400 360 / 2760 1078.333 / 1078.333 Weight last 48 hrs Weight 98 lb 4.8 oz Weight 98 lb 6.4 oz Weight 116 lb Physical Exam Narrative: Alert and oriented x 3 Head is normocephalic atraumatic Respirations are intact No evidence of any rashes or infection 5/5 strength in bilateral upper and lower extremities weak EHL dorsiflexion and plantarflexion. Sensation intact in all extremities decree sensation on the right Data 01/21/25 03:08 01/21/25 03:08 Micro: Microbiology 01/20/25 10:38 Blood Culture - Preliminary Blood SPECIMEN COLLECTED 01/20/25 10:33 Blood Culture - Preliminary Blood SPECIMEN COLLECTED A&P Assessment and plan 1. Lumbar stenosis with neurogenic claudication: 2. Large central disc protrusion at L4-5 contacting and deforming the thecal sac and contacting the traversing L5 nerve roots. Moderate central, subarticular recess and mild foraminal stenosis. Plan at this point is a patient surgery tomorrow for minimally invasive decompression at L4-5 with discectomy. Will stain on the right side. I had an open and honest discussion with the patient about the risks, benefits and alternatives to both surgical and nonsurgical treatment. The patient verbalized understanding of the inherent unpredictability associated with surgery. Risk of surgery were discussed including, but not limited to, infection, bleeding, temporary and permanent nerve damage, continued pain, stiffness, incomplete healing, need for revision surgery, blood clot and other complications. The patient verbalized understanding that there is spine is elective in nature and if they find any of these risks to be unacceptable then they should choose not to have the surgery. The patient verbalized understanding of these risks and elected to proceed with the surgery. PDMP PDMP Reviewed: Not Reviewed Coding Level of Care Code Acute Code for g Fwd Diagnoses Lumbar stenosis with neurogenic claudication M48.062
[2025-01-21 10:52] LABS: Troponin 5 2HR 8.38 ng/L (0-10)
[2025-01-21 10:55] LABS: Troponin 5 2HR Delta -0.62 ABS# (0-10)
[2025-01-21 11:59] VITALS: BP 131/85; PULSE 66; RESP 17; TEMP 36.6; O2SAT 94
--- NOTE | 2025-01-21 12:00 | P.PN_ITS ---
Subjective 2 Subjective: Continue to hold Plavix at this time in anticipation of surgery. Evaluated by Dr. Caldwell this morning. Vitals/I&O/Wt Last Vital Signs Temp 97.9 F 01/21/25 11:59 Pulse 66 01/21/25 11:59 Resp 17 01/21/25 11:59 BP 131/85 01/21/25 11:59 Pulse Ox 94 01/21/25 11:59 O2 Del Method Room Air 01/21/25 04:00 O2 Flow Rate 2 01/20/25 15:52 01/20/25 01/21/25 01/21/25 22:59 06:59 14:59 Intake Total 1400 / 2400 360 / 2760 1558.333 / 1558.333 Balance 1400 / 2400 360 / 2760 1558.333 / 1558.333 Weight last 48 hrs Weight 44.588 kg Weight 44.633 kg Weight 52.617 kg Physical Exam 2 Narrative: General: Alert oriented x3, HEENT: Normocephalic, atraumatic, EOMI, Cardio: Regular rate rhythm, normal S1-S2, Respiratory: Fair to auscultation bilaterally GI: Abdomen soft, nontender, bowel sounds + Extremities: No edema bilateral lower extremities Able to move all 4 extremities. able to lift leg off the bed to some extent and able to adjust her position in bed using her hands. No saddle anesthesia present. Does report left leg numbness Data 01/21/25 03:08 01/21/25 03:08 Micro: Microbiology 01/20/25 10:38 Blood Culture - Preliminary Blood NEGATIVE TO DATE 01/20/25 10:33 Blood Culture - Preliminary Blood NEGATIVE TO DATE A&P Assessment and plan 1. Generalized anxiety disorder: 2. Depression: 3. HTN (hypertension) with goal to be determined: 4. CAD (coronary artery disease): 5. Type II diabetes mellitus with manifestations: 6. GERD without esophagitis: 7. Cervical radiculopathy: 8. COPD (chronic obstructive pulmonary disease): 9. Generalized weakness: Plan: #Deconditioning weakness, unable to walk #Recent hip surgery 3 months ago secondary to fracture. #Type 2 diabetes mellitus #Depression #COPD #Coronary artery disease #Hypertension but now it is hypotensive #L4-L5 Lumbar radiculopathy #UTI ? MRI lumbar spine obtained in ER does not show evidence of cauda equina. Large central disc protrusion at L4-L5 contacting and deforming the thecal sac and contacting the traversing L5 nerve roots. Moderate central subarticular recess with mild foraminal stenosis. ? Consult spine surgery. Discussed with Dr. Caldwell. He states that there is no emergent need for surgery at this time he may plan for decompression in next few days however UTI needs to be treated first. ? Urinalysis positive suggestive of UTI. Check urine culture, blood culture ? Placed on Zosyn. ? Patient is allergic to ciprofloxacin. ? Will place Boogie catheter at this time. ? Patient did receive dexamethasone 10 IV x 1 in the ER. Discussed with Dr. Caldwell. Continue dexamethasone 10 IV q6H. ? He will see patient in consultation and make further recommendations. ? Continue aspirin. I will hold Plavix in anticipation of possible surgery. ? Continue gabapentin, metoprolol succinate, pantoprazole, olanzapine, sertraline, trazodone. ? Hold prazosin, - Blood pressures are soft. ? Patient had a coronary angiogram in 2022 with patent RCA stents. ? Consult case management for possible half-way placement ? Check PT OT Continue IV fluids normal saline continuous - Sliding scale insulin low-dose intensity. Full code Due to prophylaxis: Heparin SQ twice daily 01/21/2025 Continue cefepime for UTI. Urine culture pending at this time. Stop dexamethasone today. PT OT Hold prazosin. Continue gabapentin metoprolol succinate pantoprazole olanzapine sertraline and trazodone. Consult case management. Await PT OT Patient is on Plavix at home. Will need to hold for 5 days before performing surgery. Patient to follow-up with Dr. Caldwell as an outpatient. Okay to discharge from spine surgery standpoint. Safe discharge planning. I will see how patient does with physical therapy today to ensure she is safe to go home. Will plan on oral antibiotics at discharge for UTI. PDMP PDMP Reviewed: Not Reviewed Attestations 2 Medical Necessity Statement*: Deconditioning weakness unable to walk, safe discharge planning Diagnoses Generalized anxiety disorder F41.1 Depression F32.A HTN (hypertension) with goal to be determined I10 CAD (coronary artery disease) I25.10 Type II diabetes mellitus with manifestations E11.8 GERD without esophagitis K21.9 Cervical radiculopathy M54.12 COPD (chronic obstructive pulmonary disease) J44.9 Generalized weakness R53.1
--- NOTE | 2025-01-21 13:51 | ECG_ITS ---
[facility]: 2025-01[facility]21 Pat Name: Yessi Schulte Department: Room: 279 Gender: Female Process Steward: BELLE: 1960 Requested By: Brigida Quinn Order Number: [id number] Gen MD: Tanvir Thrasher M.D. Measurements Intervals [place] Rate: 65 P: 1 AR: 147 QRS: 33 QRSD: 84 T: 46 QT: 445 QTc: 463 Interpretive Statements SINUS RHYTHM ST DEVIATION AND MODERATE T-WAVE ABNORMALITY, CONSIDER ANTERIOR ISCHEMIA [-0.1+ mV T-WAVE IN V3/V4] Compared to ECG 01/21/2025 08:57:28 No significant changes Electronically Signed On 01-22-2025 22:55:19 CDT by aTnvir Thrasher M.D. [email or web address]
[2025-01-21 15:18] LABS: Troponin 5 6HR 9.31 ng/L (0-10); Troponin 5 6HR Delta 0.31 ng/L (0-12)
--- NOTE | 2025-01-21 16:17 | PM.DCS ---
Discharge Providers Date of Admission: 01/20/25 17:07 Date of Discharge: January 21, 2025 Attending Provider at Admission: Brigida Quinn MD Attending Provider at Discharge: Brigida Quinn MD Primary Care Provider: Tiny Graff MD Diagnoses at Discharge Discharge Diagnosis 1. Generalized anxiety disorder: 2. HTN (hypertension) with goal to be determined: 3. Coronary artery disease of [place] artery of [place] heart with stable angina pectoris: 4. Type II diabetes mellitus with manifestations: 5. GERD without esophagitis: 6. Cervical radiculopathy: 7. COPD (chronic obstructive pulmonary disease): 8. Generalized weakness: Reason for Visit Reason for Visit: lethargy/confusion Hospital Course Hospital Course Patient presented for deconditioning unable to walk after recent hip surgery 3 months ago secondary to fracture. MRI obtained in the ER did not show evidence of cauda equina however did show large central disc protrusion at L4-L5 contacting and forming the thecal sac and contacting the transversing L5 nerve roots. Urinalysis restive of UTI. Check urine culture blood culture. Patient was given IV dexamethasone during hospital stay however no further steroids recommended at discharge. Patient was seen by orthopedic surgeon Dr. Caldwell. Patient is on Plavix therefore surgery will have to be deferred at this time. Patient will be discharged home in stable condition at this time work with physical therapy as well. She will follow-up with orthopedics clinics and set up for surgery outpatient. Patient will be given cefdinir for 5 days to treat for UTI. Discharged home in stable condition at this time. Physical Exam Narrative: General: Alert oriented x3, HEENT: Normocephalic, atraumatic, EOMI, Cardio: Regular rate rhythm, normal S1-S2, Respiratory: Fair to auscultation bilaterally GI: Abdomen soft, nontender, bowel sounds + Extremities: No edema bilateral lower extremities Able to move all 4 extremities. able to lift leg off the bed to some extent and able to adjust her position in bed using her hands. No saddle anesthesia present. Does report left leg numbness Discharge Data Studies Completed and Pending Completed Studies During Hospitalization Category Date Time Status CT head wo con* [id number] Stat Cat Scan 01/20/25 10:[address] lumbar spine wo con* [id number] Stat Cat Scan 01/20/25 10:07 Completed XR chest 1V portable [id number] Stat Exams 01/20/25 09:59 Completed MR lumbar spine wo con* [id number] Stat MRI 01/20/25 12:49 Completed Pending at discharge Category Date Time Status Basic Metabolic Panel AM LABS Lab 01/22/25 04:00 Ordered Blood Culture Stat Lab 01/20/25 10:38 Results Complete Blood Count w/Auto AM LABS Lab 01/22/25 04:00 Ordered Magnesium AM LABS Lab 01/22/25 04:00 Ordered Urine Culture Stat Lab 01/20/25 12:00 Received Radiology Impressions Chest X-Ray 01/20/25 09:59 IMPRESSION: 1. No acute cardiopulmonary finding. Head CT 01/20/25 10:07 IMPRESSION: 1. No acute findings. 2. Additional details as above. Lumbar Spine CT 01/20/25 10:07 IMPRESSION: 1. Mild lumbar curve. 2. Large central protrusion L4-5 with moderate central canal stenosis and impingement of traversing L5 nerve roots bilaterally. Recommend follow-up spine surgery consultation. Protrusion measures 8.2 mm in AP dimension. 3. No acute appearing compression fractures. Prior kyphoplasty changes T12 Lumbar Spine MRI 01/20/25 12:49 IMPRESSION: 1. Quality of this examination is compromised by significant motion artifact. 2. Large central disc protrusion at L4-5 contacting and deforming the thecal sac and contacting the traversing L5 nerve roots. Moderate central, subarticular recess and mild foraminal stenosis. 3. Mild central stenosis at L3-4 with subarticular recess and moderate foraminal stenosis. 4. Mild foraminal narrowing at L1-2, L2-3 and L5-S1. 5. Prior vertebroplasty at T12. Laboratory Results WBC 3.33 10^3/uL (3.29-11.43) 01/21/25 03:08 RBC 3.93 10^6/uL (3.85-5.65) 01/21/25 03:08 Hgb 11.00 g/dL (11.27-16.99) L 01/21/25 03:08 Hct 33.4 % (36-47) L 01/21/25 03:08 MCV 85.0 fl (85-98) 01/21/25 03:08 MCH 28.0 pg (27-33) 01/21/25 03:08 MCHC 32.9 g/dL (30-55) 01/21/25 03:08 RDW 14.7 % (12.1-15.1) 01/21/25 03:08 Plt Count 282 10^3/cmm (157-399) 01/21/25 03:08 MPV 8.7 fL (7.4-10.4) 01/21/25 03:08 Neut % (Auto) 76.3 % 01/21/25 03:08 Lymph % (Auto) 22.2 % 01/21/25 03:08 [place] % (Auto) 1.2 % 01/21/25 03:08 Eos % (Auto) 0.0 % 01/21/25 03:08 Baso % (Auto) 0.0 % 01/21/25 03:08 Neut # (Auto) 2.54 10^3/uL (1.8-7.7) 01/21/25 03:08 Lymph # (Auto) 0.7 10^3/uL (0.8-4.8) L 01/21/25 03:08 [place] # (Auto) 0.0 10^3/uL (0.2-0.9) L 01/21/25 03:08 Eos # (Auto) 0.0 10^3/uL (0.0-0.8) 01/21/25 03:08 Baso # (Auto) 0.0 10^3/uL (0.0-0.1) 01/21/25 03:08 Nucleated RBC % (auto) 0 % 01/21/25 03:08 Nucleated RBCs # 0.0 /100WBC 01/21/25 03:08 Specimen Type Arterial 01/20/25 10:41 Sample Site Brachial, left 01/20/25 10:41 ABG pH 7.33 (7.35-7.45) L 01/20/25 10:41 ABG pCO2 42.0 mmHg (35-45) 01/20/25 10:41 ABG pO2 101.0 mmHg (80.0-100.0) H 01/20/25 10:41 ABG PO2/FiO2 Ratio 360 01/20/25 10:41 ABG HCO3 22.1 mmol/L (22-26) 01/20/25 10:41 ABG O2 Saturation 97.8 01/20/25 10:41 ABG Base Excess -3.7 mmol/L (-2.0-2.0) L 01/20/25 10:41 Philipp Test N/a 01/20/25 10:41 A-a O2 Gradient 6.2 mmHg (5-10) 01/20/25 10:41 Hematocrit 31.5 % (37-47) L 01/20/25 10:41 Hgb O2 Saturation 94.8 % (95-100) L 01/20/25 10:41 Carboxyhemoglobin 2.5 %THgb (0.4-20.1) 01/20/25 10:41 Methemoglobin 0.6 % (0.4-1.5) 01/20/25 10:41 Total Hemoglobin 10.3 g/dL (12-16) L 01/20/25 10:41 Sodium 141.0 mmol/L (131-143) 01/20/25 10:41 Potassium 2.9 mmol/L (3.5-5.0) L 01/20/25 10:41 Glucose 87.0 mg/dL (70-115) 01/20/25 10:41 Ionized Calcium 1.2 mmol/L (1.1-1.4) 01/20/25 10:41 O2 Delivery Device Nc 01/20/25 10:41 O2 Liters/Min 2.0 % 01/20/25 10:41 FiO2 28.0 % 01/20/25 10:41 Piling Cutter ID Amh 01/20/25 10:41 Sodium 144 mmol/L (136-145) 01/21/25 03:08 Potassium 3.4 mmol/L (3.5-5.1) L 01/21/25 03:08 Chloride 111 mmol/L (98-107) H 01/21/25 03:08 Carbon Dioxide 22 mmol/L (22-29) 01/21/25 03:08 Anion Gap 14.4 (5-19) 01/21/25 03:08 BUN 10 mg/dL (8-23) 01/21/25 03:08 Creatinine 0.6 mg/dL (0.5-0.9) 01/21/25 03:08 GFR Calculation 100.3 mL/min (90-130) 01/21/25 03:08 Glucose 103 mg/dL (65-115) 01/21/25 03:08 POC Glucose 122 mg/dL (70-110) H 01/21/25 11:40 Calculated Osmolality 297 mOsm/kg (285-295) H 01/21/25 03:08 Lactic Acid 0.6 mmol/L (0.5-2.2) 01/20/25 10:29 Calcium 9.0 mg/dL (8.5-10.5) 01/21/25 03:08 Phosphorus 2.2 mg/dL (2.5-4.5) L 01/21/25 03:08 Magnesium 1.9 mg/dL (1.7-2.3) 01/21/25 03:08 Total Bilirubin 0.3 mg/dL (0.15-1.2) 01/21/25 03:08 AST 9 U/L (0-32) 01/21/25 03:08 ALT 9 U/L (0-33) 01/21/25 03:08 Alkaline Phosphatase 59 U/L (35-105) 01/21/25 03:08 Troponin T Baseline 9 ng/L (0-10) 01/21/25 08:11 Troponin T 120 Minute 8.38 ng/L (0-10) 01/21/25 10:15 Delta Troponin T -0.62 ABS# (0-10) L 01/21/25 10:15 Troponin T Hi Sens 6Hr 9.31 ng/L (0-10) 01/21/25 14:53 Troponin T Hi Sens 6Hr Delta 0.31 ng/L (0-12) 01/21/25 14:53 C-Reactive Protein 3.0 mg/L (0.0-4.9) 01/20/25 10:29 NT-Pro-B Natriuret Pep 158 pg/mL (0-125) H 01/20/25 10:29 Total Protein 6.3 g/dL (6.6-8.7) L 01/21/25 03:08 Albumin 3.5 g/dL (3.5-5.2) 01/21/25 03:08 Globulin 2.8 g/dL (1.3-4.6) 01/21/25 03:08 Urine Color Dark yellow (Yellow) A 01/20/25 12:00 Urine Appearance Cloudy (CLEAR) A 01/20/25 12:00 Urine pH 5.5 (5-7) 01/20/25 12:00 Ur Specific Julian 1.027 (1.005-1.030) 01/20/25 12:00 Urine Protein 1+ (Negative) A 01/20/25 12:00 Urine Glucose (UA) Negative (Normal) 01/20/25 12:00 Urine Ketones 2+ (Negative) H 01/20/25 12:00 Urine Blood Negative (Negative) 01/20/25 12:00 Urine Nitrate Positive (Negative) A 01/20/25 12:00 Urine Bilirubin Negative (Negative) 01/20/25 12:00 Urine Urobilinogen 1.0 mg/dL (Negative) 01/20/25 12:00 Ur Leukocyte Esterase Trace (Negative) A 01/20/25 12:00 Urine RBC 0-2 /hpf (0-2) 01/20/25 12:00 Urine WBC 6-10 /hpf (0-5) 01/20/25 12:00 Ur Squamous Epith Cells 21-50 /hpf (0-5) H 01/20/25 12:00 Calcium Oxalate Crystal 0-4 /hpf H 01/20/25 12:00 Amorphous Sediment Not Reportable 01/20/25 12:00 Urine Bacteria 4+ /hpf (NONE) H 01/20/25 12:00 Hyaline Casts 2.46 /lpf 01/20/25 12:00 Vitals Last Vital Signs Temp 97.9 F 01/21/25 11:59 Pulse 66 01/21/25 11:59 Resp 17 01/21/25 11:59 BP 131/85 01/21/25 11:59 Pulse Ox 94 01/21/25 11:59 O2 Del Method Room Air 01/21/25 04:00 O2 Flow Rate 2 01/20/25 15:52 Discharge Plan Discharge Patient Disposition: Home Condition: Stable Prescriptions: New cefdinir 300 mg capsule 300 mg PO BID 5 Days Qty: 10 0RF Continued nitroglycerin [Nitrostat] 0.4 mg tablet, sublingual 0.4 mg SUBLINGUAL Q5M PRN (Reason: Chest Pain) Qty: 20 2RF Rx Instructions: do not exceed 3 doses per episode ipratropium-albuterol 0.5 mg-3 mg(2.5 mg base)/3 mL solution for nebulization 3 ml inhalation Q4H PRN (Reason: wheezing) Qty: 180 1RF isosorbide mononitrate 60 mg tablet extended release 24 hr 60 mg PO BID Qty: 180 0RF sertraline [Zoloft] 100 mg tablet 100 mg PO DAILY Qty: 30 0RF Rx Instructions: Start after 1 month on 50 mg buspirone 15 mg tablet 15 mg PO BID Qty: 60 2RF trazodone 100 mg tablet 200 mg PO .HS PRN (Reason: insomnia) Qty: 60 2RF (DME) FreeStyle [place] 3 Taberg Misc See Rx Instructions .Route Qty: 1 0RF Rx Instructions: As directed (DME) FreeStyle [place] 3 Sensor Device See Rx Instructions .Route Qty: 2 5RF Rx Instructions: As directed epinephrine [EpiPen 2-Redd] 0.3 mg/0.3 mL auto-injector 0.3 mg IM Q4H PRN (Reason: anaphylaxis) Qty: 2 1RF insulin glargine [Lantus Solostar U-100 Insulin] 100 unit/mL (3 mL) insulin pen 10 unit SUBCUT QPM Qty: 15 0RF albuterol sulfate 90 mcg/actuation HFA aerosol inhaler 2 puff inhalation QID PRN (Reason: Shortness Of Breath) Qty: 8.5 0RF clonazepam 0.5 mg tablet 0.5 mg PO BID Qty: 60 1RF (DME) pen needle, diabetic [TechLITE Pen Needle] 32 gauge x 5/32 needle See Rx Instructions .ROUTE .COMPLEX Qty: 100 0RF Dose Instruction: USE DIRECTED Rx Instructions: USE DIRECTED gabapentin 600 mg tablet 600 mg PO TID olanzapine 7.5 mg tablet 7.5 mg PO DAILY pantoprazole 40 mg tablet,delayed release (DR/EC) 40 mg PO DAILY aspirin 81 mg tablet,delayed release (DR/EC) 81 mg PO DAILY 30 Days Qty: 30 3RF metoprolol succinate 25 mg tablet extended release 24 hr 25 mg PO BID Held clopidogrel 75 mg tablet 75 mg PO DAILY Qty: 90 3RF Hold Instructions: hold for 5 days prazosin 5 mg capsule 5 mg PO QPM Hold Instructions: see pcp Block [place] for DC: Orthopedics Discharge Order = DC NOW: Discharge Order (Routine); Ordered 01/21/25 Ordered By: Brigida Quinn Other Ambulatory Orders: Physical Therapy Eval and Treat Outpatient (Order) Timeframe: 3 Days [address]: [facility] - Location: Physical Therapy Ordered By: Wai Caldwell Referrals: [facility] Outpatient Therapy [Outside] Referral Note: Resume Outpt PT as prior to admission. Wai Caldwell DO [Physician, Orthopedics] - 01/26/25 8:30 am Referral Note: Tiny Graff MD [Primary Care Provider, [facility]] - 1-3 days Referral Note: We have notified your physician's clinic of the need for a follow-up appointment to be scheduled. If you have not heard from them within the next 2 business days, please call them directly. Discharge Diet: Cardiac Discharge Activity: Use walker/crutches as instructed and As per PT/OT instructions Patient Instructions: Cefdinir (By mouth), Opioid Safety, Patient Portal & Jose Eduardo Instructions Discharge Attestations Time Spent in Discharge Care*: greater than 30 min Quality Metrics Clinical Quality Measures [ No reported AMI, CVA or VTE this stay] Coding Level of Care Code Acute Code for Chg Fwd Diagnoses Generalized anxiety disorder F41.1 Depression F32.A HTN (hypertension) with goal to be determined I10 Coronary artery disease of [place] artery of [place] heart with stable angina pectoris I25.118 Associated angina: with stable angina Coronary Disease-Associated Artery/Lesion type: [place] artery [place] vs. transplanted heart: [place] heart Type II diabetes mellitus with manifestations E11.8 GERD without esophagitis K21.9 Cervical radiculopathy M54.12 COPD (chronic obstructive pulmonary disease) J44.9 Generalized weakness R53.1
[2025-01-21 16:27] VITALS: BP 131/85; PULSE 66; RESP 17; TEMP 36.6; O2SAT 94
--- NOTE | 2025-01-21 16:44 | PC.NURSE ---
Discharge instructions provided to pt and her family. No concerns or questions voiced. To private vehicle via wheelchair with all belongings.
--- NOTE | 2025-01-21 17:35 | PC.OT ---
OT EVALUATION ATTMEPTED IN A.M. AND PATIENT WAS EATING LUNCH. PATIENT D/C IN P.M. BEFORE THERAPIST COULD ATTEMPT EVALUATION.
[2025-01-24 05:35] LABS: Bacillus cereus group Not Detected (NOT DETECT); Bacillus subtillis group Not Detected (NOT DETECT); Corynebacterium Not Detected (NOT DETECT); Cutibacterium acnes (P.acnes) Not Detected (NOT DETECT); Enterococcus faecalis Not Detected (NOT DETECT); Enterococcus faecium Not Detected (NOT DETECT); Listeria Not Detected (NOT DETECT); Micrococcus Not Detected (NOT DETECT); Pan Candida Not Detected (NOT DETECT); Pan Gram-Negative Not Detected (NOT DETECT); Staphylococcus epidermidis Detected (NOT DETECT); Staphylococcus lugdunensis Not Detected (NOT DETECT); Staphylococcus species Detected (NOT DETECT); Streptococcus anginosus group Not Detected (NOT DETECT); Streptococcus pyogenes Not Detected (NOT DETECT); Streptococcus species Not Detected (NOT DETECT); mecA Not Detected (NOT DETECT); mecC Not Detected (NOT DETECT)
== END 2025-01-21 16:45 | disposition home or self-care (01) | DRG 690 ==
LOC: ER 16:55 → ER IP 17:07 → MEDSURG 18:34
PROVIDERS: Admitting Provider Internal Medicine; Emergency Provider Emergency Medicine; PCP Family Medicine; Visit Provider Internal Medicine
DX: N39.0 Urinary tract infection, site not specified (principal); F41.1 Generalized anxiety disorder; I10 Essential (primary) hypertension; E11.42 Type 2 diabetes mellitus with diabetic polyneuropathy; K21.9 Gastro-esophageal reflux disease without esophagitis; M54.12 Radiculopathy, cervical region; J44.9 Chronic obstructive pulmonary disease, unspecified; M51.26 Other intervertebral disc displacement, lumbar region; M48.062 Spinal stenosis, lumbar region with neurogenic claudication; F43.10 Post-traumatic stress disorder, unspecified; I95.9 Hypotension, unspecified; I25.10 Atherosclerotic heart disease of native coronary artery without angina pectoris; Z96.641 Presence of right artificial hip joint; K76.89 Other specified diseases of liver; E78.2 Mixed hyperlipidemia; I25.2 Old myocardial infarction; Z79.4 Long term (current) use of insulin; Z79.891 Long term (current) use of opiate analgesic; Z79.82 Long term (current) use of aspirin; Z98.1 Arthrodesis status; Z95.5 Presence of coronary angioplasty implant and graft
CPT/HCPCS: 36415; 36416; 36600; 70450; 71045; 72131; 72148; 80051; 80053; 81001; 82330; 82805; 82962; 83605; 83735; 83880; 84100; 84484; 85025; 86140; 87040; 87077; 87086; 87150; 87186; 87205; 93005; 96372; 96374; 96375; 97162; 99285; J0692; J1100; J1815; J7030; J7040; J9999

== ENCOUNTER → 2025-01-26 08:20 | Outpatient (BNVA) | payer MEDICARE, SELFPAY | PROVIDERS: PCP Family Medicine; Visit Provider Orthopaedic Surgery | DX: M48.062 Spinal stenosis, lumbar region with neurogenic claudication (principal); M51.362 Other intervertebral disc degeneration, lumbar region with discogenic back pain and lower extremity pain; Z01.818 Encounter for other preprocedural examination; E11.9 Type 2 diabetes mellitus without complications | CPT/HCPCS: 36415; 80053; 81001; 83036; 85025; 87086; 87106; 99214 ==

== ENCOUNTER 2025-01-28 10:22 | Outpatient (CLI) | payer MEDICARE, SELFPAY | END 2025-01-28 10:23 | disposition home or self-care (01) | LOC: LAB 10:25 | PROVIDERS: PCP Family Medicine; Visit Provider Family Medicine | DX: J06.9 Acute upper respiratory infection, unspecified (principal); D72.829 Elevated white blood cell count, unspecified | CPT/HCPCS: 80048; 85025 ==

== ENCOUNTER → 2025-02-08 13:38 | Outpatient (BNVA) | payer MEDICARE, SELFPAY | PROVIDERS: PCP Family Medicine; Visit Provider Orthopaedic Surgery | DX: S72.001D Fracture of unspecified part of neck of right femur, subsequent encounter for closed fracture with routine healing (principal); X58.XXXD Exposure to other specified factors, subsequent encounter | CPT/HCPCS: 73502; 99213 ==

== ENCOUNTER 2025-02-09 07:10 | Outpatient (CLI) | payer MEDICARE, SELFPAY ==
--- NOTE | 2025-02-09 08:11 | PC.NURSE ---
pt present to [facility] in a wheelchair slumped to one side. nurse found it very difficult to understand what pt was saying. pt couldn't hold herself up at all. based on pt presentation, nurse took vitals to be sure she would be able to tolerate stress test. after several attempts to check bp by machine, manual bp was taken. 78/50 results. hr and o2 readings ok. nurse called physician and was told of pt presentation and bp. his recommendation was to send pt to er to be evaluated. nurse spoke to pt family and told them of the recommendation and they agreed to go.
== END 2025-02-09 07:11 | disposition home or self-care (01) ==
LOC: CDL 07:12
PROVIDERS: Family Provider Orthopaedic Surgery; PCP Family Medicine; Visit Provider Internal Medicine
DX: R07.9 Chest pain, unspecified (principal); R06.02 Shortness of breath
CPT/HCPCS: 36416; 82962

== ENCOUNTER 2025-02-09 07:42 | Emergency (ER) | payer MEDICARE, SELFPAY ==
[2025-02-09 07:45] VITALS: BP 113/80; PULSE 82; RESP 14; TEMP 37.1; O2SAT 90
--- NOTE | 2025-02-09 07:48 | ECG_ITS ---
[facility]25[facility]09 Pat Name: Yessi Schulte Department: Room: Gender: Female [employer]: : 1960 Requested By: Uriel Figueroa Order Number: [id number] Gen MD: Hernan Coffman M.D. Measurements Intervals Means Rate: 81 P: -82 OK: 117 QRS: 38 QRSD: 89 T: 23 QT: 407 QTc: 475 Interpretive Statements Possible ectopic atrial/JUNCTIONAL RHYTHM ST DEVIATION AND MODERATE T-WAVE ABNORMALITY, CONSIDER ANTEROLATERAL ISCHEMIA [-0.1+ mV T-WAVE IN V3-V6] Compared to ECG 01/21/2025 10:11:52 Junctional rhythm now present Sinus rhythm no longer present T-wave abnormality still present Possible ischemia still present Electronically Signed On 02-09-2025 07:55:18 CDT by Hernan Coffman M.D. [email or web address]
--- NOTE | 2025-02-09 07:49 | W.ED.GENADLT ---
HPI - General Adult General: Chief complaint: Weakness Stated complaint: Low BP Time Seen by Provider: 02/09/25 07:44 History of Present Illness: 64-year-old female presents emergency room with complaint of low blood pressure. Patient was seen for preop visit on 01 28. She was hypotensive on that visit and her back surgery was canceled. At that time she according to office notes that she was holding prazosin metoprolol and isosorbide. Associated symptoms: Deny chest pain, dyspnea or rash Related Data Home Medications ?Medication ?Instructions ?Recorded ?Confirmed gabapentin 600 mg tablet 600 mg PO BID 10/28/24 02/09/25 olanzapine 7.5 mg tablet 7.5 mg PO DAILY 10/28/24 02/09/25 pantoprazole 40 mg tablet,delayed 40 mg PO DAILY 10/28/24 02/09/25 release prazosin 5 mg capsule 5 mg PO QPM 10/28/24 02/09/25 Held on 01/21/25. Instructions: see pcp metoprolol succinate 25 mg 25 mg PO BID 01/20/25 02/09/25 tablet,extended release 24 hr Held on 01/28/25. Instructions: Doctor's Order buspirone 15 mg tablet 7.5 mg PO BID 02/09/25 02/09/25 isosorbide mononitrate 60 mg 60 mg PO BID PRN high bp 02/09/25 02/09/25 tablet,extended release 24 hr sertraline 100 mg tablet (Zoloft) 100 mg PO QPM 02/09/25 02/09/25 Previous Rx's ?Medication ?Instructions ?Recorded epinephrine 0.3 mg/0.3 mL 0.3 mg (0.3 mL) IM Q4H PRN 10/30/23 injection, auto-injector (EpiPen anaphylaxis #2 ea 2-Redd) clopidogrel 75 mg tablet 75 mg PO DAILY #90 tabs 03/31/24 Held on 01/21/25. Instructions: hold for 5 days nitroglycerin 0.4 mg sublingual 0.4 mg sublingual Q5M PRN Chest 03/31/24 tablet (Nitrostat) Pain #20 tabs trazodone 100 mg tablet 200 mg (2 x 100 mg) PO .HS PRN 06/12/24 insomnia #60 tabs 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 sensor (FreeStyle #2 ea 07/28/24 Selwyn 3 Sensor device) 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,specialty sales representative,cont #1 ea 07/28/24 (FreeStyle Selwyn 3 Clifton) insulin glargine 100 unit/mL (3 10 unit (0.1 mL) SUBCUT QPM #15 mL 10/21/24 mL) subcutaneous pen (Lantus Solostar U-100 Insulin) albuterol sulfate 90 mcg/actuation 2 puff inhalation QID PRN 10/29/24 aerosol inhaler Shortness Of Breath #8.5 grams aspirin 81 mg tablet,delayed 81 mg PO DAILY 30 days #30 tabs 10/31/24 release clonazepam 0.5 mg tablet 0.5 mg PO BID #60 tabs 12/19/24 pen needle, diabetic 32 gauge x #100 ea 01/05/25 (TechLITE Pen Needle) potassium chloride 10 mEq 10 meq PO DAILY #30 tabs 01/28/25 tablet,extended release (Klor-Con) Allergies Allergy/AdvReac Type Severity Reaction Status Date / Time ciprofloxacin (From Cipro) Allergy Severe Unresponsiv Verified 02/08/25 08:26 e codeine Allergy Severe ALGY-Anaphy Verified 02/08/25 08:26 laxis lidocaine Allergy Severe ALGY-Swell Verified 02/08/25 08:26 Lip/Tongue/Throat morphine Allergy Severe ALGY-Anaphy Verified 02/08/25 08:26 laxis Penicillins Allergy Severe ALGY-Swell Verified 02/08/25 08:26 Lip/Tongue/Throat procaine (From Novocain) Allergy Severe ALGY-Swell Verified 02/08/25 08:26 Lip/Tongue/Throat prochlorperazine (From Allergy Severe ALGY-Swell Verified 02/08/25 08:26 Compazine) Lip/Tongue/Throat adhesive tape Allergy Unknown Unknown Verified 02/08/25 08:26 Sulfa (Sulfonamide Allergy Unknown Unknown Verified 02/08/25 08:26 Antibiotics) methocarbamol Allergy ALGY-Redness Verified 02/08/25 08:26 of Skin Review of Systems Const: Denies: fever(s) or chills Card: Denies: chest pain Resp: Denies: dyspnea GI: Denies: abdominal pain : Denies: dysuria, urinary frequency or urinary urgency Musc: Denies: neck pain or back pain Skin/Breast: Denies: rash PFSH ED PFSH: Medical History Cervical spondylosis Head injury due to trauma Concussion Neck pain Liver mass on CT 05/19 and LDCT 08/18; US 09/18 shows it is simple cyst Mixed dyslipidemia COPD (chronic obstructive pulmonary disease) Polyneuropathy associated with underlying disease CAD (coronary artery disease) one stent Type 2 diabetes mellitus Screening for lung cancer LDCT ordered for 09/18 Nicotine dependence, cigarettes, with other nicotine-induced disorders Psychiatric care Claudication Essential hypertension Neutrophilic leukocytosis Myocardial infarction acute 09/2019 Depression sees psychiatry Surgical History History of hip surgery R hip replacement after femoral neck fx 10/30/24 Hx of bilateral cataract extraction History of bladder surgery Vitality urology [facility] Home Hx of cervical spine surgery X 2; one done at [facility], one done at [facility] Home History of 3 sections S/P DONNA-BSO done b/c of ruptured uterus; no cancer History of incisional hernia repair Status post colonoscopy 8.9.23 OZH--tubular adenoma and other polyps--repeat 3 yrs S/P cardiac cath one stent History of appendectomy H/O exploratory laparotomy Multiple bowel resections--3 X--done b/c of adhesions/blockages S/P cholecystectomy Family History Mother Breast cancer Sister Breast cancer Sister Breast cancer Brother Brain cancer Brother CAD (coronary artery disease) Social History Smoking and tobacco/nicotine status: current every day tobacco/nicotine user cigarettes Packs smoked per day: 0.5 [ Other cigarette details: started age 13] Alcohol intake: current Alcohol intake frequency: holidays/special occasions only Substance/Drug Use: never Household members: spouse and other Details: daughter, son in law and 2 grandkids Marital status: Number of children: 2 Highest education level completed: Bachelor's Degree Current occupational status: retired Previous occupational history: [employer] Female Reproductive History: Spontaneous abortions: No Physical Exam Const: COMMON NORMALS: no acute distress GENERAL APPEARANCE: cooperative and comfortable ORIENTATION/CONSCIOUSNESS: Yes awake, Yes oriented to person, Yes oriented to place and Yes oriented to time HENMT: COMMON NORMALS: normocephalic, atraumatic and hearing grossly normal bilaterally HEAD & SCALP: normocephalic and atraumatic Resp: COMMON NORMALS: normal respiratory effort, No retractions, No use of accessory muscles and clear to auscultation bilaterally AUSCULTATION: clear to auscultation bilaterally Cardio: COMMON NORMALS: regular rate, regular rhythm and No murmurs present (Cardio) RATE: regular rate RHYTHM: regular rhythm GI: COMMON NORMALS: Soft to palpation and No hepatosplenomegaly present AUSCULTATION: Yes normoactive bowel sounds PALPATION: Yes Soft to palpation, No Tenderness to palpation present (GI), No Guarding due to palpation present (GI) and Yes No hepatosplenomegaly present Extremity: COMMON NORMALS: normal to inspection, capillary refill normal, no clubbing, cyanosis or edema, no calf tenderness and no pedal edema Neuro: SENSORIUM/ORIENTATION: Yes oriented to person, Yes oriented to place and Yes oriented to time Skin: COMMON NORMALS: no rashes or lesions noted GENERAL SKIN EXAM: no rashes or lesions noted Course Vital Signs: Vital signs: Vital Signs Temperature 98.7 F 02/09/25 07:45 Pulse Rate 67 02/09/25 12:04 Respiratory Rate 14 02/09/25 07:45 Blood Pressure 108/74 02/09/25 12:04 Pulse Oximetry 90 02/09/25 12:04 Oxygen Delivery Me thod Room Air 02/09/25 11:30 MDM - General Adult Medical Decision Making Blood pressure has improved generally patient has not felt well and seems to have been deteriorating. Discussed observation versus discharge to home ultimately decided to discharge patient home. Blood pressure is improved patient returned to baseline is not on any antihypertensives at this time. Discussed observation with plan to look at [facility] placement family declines. Follow-up with primary care as previously scheduled. Have to contact cardiology to reschedule her stress test Medical Records I reviewed the patient's medical records. Lab Data I reviewed the patient's lab results. 02/09/25 08:35 02/09/25 08:35 Radiology Impressions Chest X-Ray 02/09/25 08:20 IMPRESSION: Stable chest with no acute abnormality. Laboratory Results WBC 10.38 10^3/uL (3.29-11.43) 02/09/25 08:35 RBC 4.53 10^6/uL (3.85-5.65) 02/09/25 08:35 Hgb 12.70 g/dL (11.27-16.99) 02/09/25 08:35 Hct 40.0 % (36-47) 02/09/25 08:35 MCV 88.3 fl (85-98) 02/09/25 08:35 MCH 28.0 pg (27-33) 02/09/25 08:35 MCHC 31.8 g/dL (30-55) 02/09/25 08:35 RDW 15.6 % (12.1-15.1) H 02/09/25 08:35 Plt Count 251 10^3/cmm (157-399) 02/09/25 08:35 MPV 8.6 fL (7.4-10.4) 02/09/25 08:35 Neut % (Auto) 80.3 % 02/09/25 08:35 Lymph % (Auto) 11.6 % 02/09/25 08:35 Hall % (Auto) 6.8 % 02/09/25 08:35 Eos % (Auto) 0.8 % 02/09/25 08:35 Baso % (Auto) 0.2 % 02/09/25 08:35 Neut # (Auto) 8.34 10^3/uL (1.8-7.7) H 02/09/25 08:35 Lymph # (Auto) 1.2 10^3/uL (0.8-4.8) 02/09/25 08:35 Hall # (Auto) 0.7 10^3/uL (0.2-0.9) 02/09/25 08:35 Eos # (Auto) 0.1 10^3/uL (0.0-0.8) 02/09/25 08:35 Baso # (Auto) 0.0 10^3/uL (0.0-0.1) 02/09/25 08:35 Nucleated RBC % (auto) 0 % 02/09/25 08:35 Nucleated RBCs # 0.0 /100WBC 02/09/25 08:35 Sodium 139 mmol/L (136-145) 02/09/25 08:35 Potassium 3.8 mmol/L (3.5-5.1) 02/09/25 08:35 Chloride 102 mmol/L (98-107) 02/09/25 08:35 Carbon Dioxide 23 mmol/L (22-29) 02/09/25 08:35 Anion Gap 17.8 (5-19) 02/09/25 08:35 BUN 13 mg/dL (8-23) 02/09/25 08:35 Creatinine 0.6 mg/dL (0.5-0.9) 02/09/25 08:35 GFR Calculation 100.3 mL/min (90-130) 02/09/25 08:35 Glucose 144 mg/dL (65-115) H 02/09/25 08:35 Calculated Osmolality 291 mOsm/kg (285-295) 02/09/25 08:35 Calcium 9.5 mg/dL (8.5-10.5) 02/09/25 08:35 Total Bilirubin 0.4 mg/dL (0.15-1.2) 02/09/25 08:35 AST 16 U/L (0-32) 02/09/25 08:35 ALT 12 U/L (0-33) 02/09/25 08:35 Alkaline Phosphatase 60 U/L (35-105) 02/09/25 08:35 Total Protein 6.8 g/dL (6.6-8.7) 02/09/25 08:35 Albumin 3.9 g/dL (3.5-5.2) 02/09/25 08:35 Globulin 2.9 g/dL (1.3-4.6) 02/09/25 08:35 All radiology interpretation(s) finalized by discharge EKG Data EKG 1: Interpretation: EKG 02/09/2025 7:48 AM ectopic atrial rhythm Nonspecific ST changes. Rate 81 VA interval 117 QTc 475 compared to EKG 01/21/2025 no significant change Computer generated interpretation: Chest X-Ray 02/09/25 08:20 IMPRESSION: Stable chest with no acute abnormality. Discharge Plan Discharge Patient Disposition: Home Clinical Impression: Lumbar spinal stenosis Hypotension, unspecified hypotension type Qualifiers: Hypotension type: unspecified hypotension type Qualified Code(s): I95.9 - Hypotension, unspecified Type 2 diabetes mellitus Qualifiers: Diabetes mellitus retirement insulin use: with dock guard use Diabetes mellitus complication status: with hyperglycemia Qualified Code(s): E11.65 - Type 2 diabetes mellitus with hyperglycemia Condition: Stable Prescriptions: No Action clopidogrel 75 mg tablet 75 mg PO DAILY Qty: 90 3RF nitroglycerin [Nitrostat] 0.4 mg tablet, sublingual 0.4 mg SUBLINGUAL Q5M PRN (Reason: Chest Pain) Qty: 20 2RF Rx Instructions: do not exceed 3 doses per episode trazodone 100 mg tablet 200 mg PO .HS PRN (Reason: insomnia) Qty: 60 2RF (DME) FreeStyle Selwyn 3 Clifton Misc See Rx Instructions .Route Qty: 1 0RF Rx Instructions: As directed (DME) FreeStyle Selwyn 3 Sensor Device See Rx Instructions .Route Qty: 2 5RF Rx Instructions: As directed potassium chloride [Klor-Con 10] 10 mEq tablet extended release 10 meq PO DAILY Qty: 30 3RF epinephrine [EpiPen 2-Redd] 0.3 mg/0.3 mL auto-injector 0.3 mg IM Q4H PRN (Reason: anaphylaxis) Qty: 2 1RF insulin glargine [Lantus Solostar U-100 Insulin] 100 unit/mL (3 mL) insulin pen 10 unit SUBCUT QPM Qty: 15 0RF albuterol sulfate 90 mcg/actuation HFA aerosol inhaler 2 puff inhalation QID PRN (Reason: Shortness Of Breath) Qty: 8.5 0RF clonazepam 0.5 mg tablet 0.5 mg PO BID Qty: 60 1RF (DME) pen needle, diabetic [TechLITE Pen Needle] 32 gauge x 5/32 needle See Rx Instructions .ROUTE .COMPLEX Qty: 100 0RF Dose Instruction: USE DIRECTED Rx Instructions: USE DIRECTED gabapentin 600 mg tablet 600 mg PO BID olanzapine 7.5 mg tablet 7.5 mg PO DAILY prazosin 5 mg capsule 5 mg PO QPM pantoprazole 40 mg tablet,delayed release (DR/EC) 40 mg PO DAILY aspirin 81 mg tablet,delayed release (DR/EC) 81 mg PO DAILY 30 Days Qty: 30 3RF sertraline [Zoloft] 100 mg tablet 100 mg PO QPM isosorbide mononitrate 60 mg tablet extended release 24 hr 60 mg PO BID PRN (Reason: high bp) buspirone 15 mg tablet 7.5 mg PO BID metoprolol succinate 25 mg tablet extended release 24 hr 25 mg PO BID Discharge Orders: Discharge ED (Routine); Ordered 02/09/25 Ordered By: Uriel Bae Referrals: Wai Caldwell DO [Family Provider, Orthopedics] Tiny Graff MD [Primary Care Provider, Family Practice] Discharge Diet: Usual diet Discharge Activity: Increase activity as tolerated Patient Instructions: Opioid Safety, Pain Management, Patient Portal & Jose Eduardo Instructions Activity Restrictions/Additional Instructions: [facility]. It is very important that you follow up as instructed or that you return to the Emergency Department should you have concerns or if your condition changes or worsens in any way. Emergency department visits are focused on emergent conditions, in some cases you may require further evaluation on an outpatient basis. You were seen in the emergency room for low blood pressure which has been an ongoing problem for some time. Your blood pressure improved with IV fluids. Recommend that you continue to follow-up with your primary care doctor. Consider placement in [facility] for rehab and assistance with ADLs. Contact Dr. Thrasher's office to reschedule the cardiac testing. (Please note that included in your discharge packet is information concerning opioid safety and pain management. This information is given to all patients were discharged from the ER regardless of their discharge diagnosis or the medicines they usually take or are prescribed.) Print Language: [place] Coding Level of Care Code ED Cooker Operator for Sonya Patrick
--- NOTE | 2025-02-09 08:20 | XR_ITS ---
WS: [id number] XR chest 1V portable [id number] REASON FOR EXAM: Hypotension FINDINGS: Chest is unchanged compared to the previous examination of 01/20/2025. Moderate tortuosity and ectasia of the thoracic aorta with calcification of the aortic arch. Normal heart size. Calcified granulomatous disease in both hemithoraces. No acute pulmonary parenchymal or pleural abnormality. XR/XR chest 1V portable [id number] IMPRESSION: Stable chest with no acute abnormality.
--- NOTE | 2025-02-09 08:20 | ECG_ITS ---
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 Measurements Intervals Sebastian Rate: 70 P: 68 [place]: 168 QRS: 67 QRSD: 89 T: 68 QT: 437 QTc: 473 Interpretive Statements SINUS RHYTHM ST DEVIATION AND MODERATE T-WAVE ABNORMALITY, CONSIDER ANTERIOR ISCHEMIA [-0.1+ mV T-WAVE IN V3/V4] Compared to ECG 02/09/2025 07:48:10 No significant changes Electronically Signed On 02-09-2025 17:49:51 CDT by Hernan Coffman M.D. [email or web address]
--- NOTE | 2025-02-09 08:43 | PC.NURSE ---
this RN attempted twice for IV access in the RAC, both attempts unsuccessful. primary nurse ERICA Su notified.
[2025-02-09 08:52] LABS: Hematocrit 40.0 % (36-47); Hemoglobin 12.70 g/dL (11.27-16.99); Mean Corpuscular HGB Conc 31.8 g/dL (30-55); Mean Corpuscular Hemoglobin 28.0 pg (27-33); Mean Corpuscular Volume 88.3 fl (85-98); Nucleated Red Blood Cells % 0 %; Platelet Count 251 10^3/cmm (157-399); Red Blood Count 4.53 10^6/uL (3.85-5.65); White Blood Count 10.38 10^3/uL (3.29-11.43)
[2025-02-09 09:13] LABS: Alanine Aminotransferase 12 U/L (0-33); Albumin Level 3.9 g/dL (3.5-5.2); Alkaline Phosphatase 60 U/L (35-105); Anion Gap 17.8 (5-19); Aspartate Amino Transferase 16 U/L (0-32); Blood Urea Nitrogen 13 mg/dL (8-23); Calcium 9.5 mg/dL (8.5-10.5); Carbon Dioxide 23 mmol/L (22-29); Chloride 102 mmol/L (98-107); Creatinine Clr Calc Pharmacy 50.6184; Globulin 2.9 g/dL (1.3-4.6); Glucose 144 mg/dL (65-115); Osmolality Calculated 291 mOsm/kg (285-295); Potassium 3.8 mmol/L (3.5-5.1); Sodium 139 mmol/L (136-145); Total Protein 6.8 g/dL (6.6-8.7)
[2025-02-09 09:30] VITALS: BP 105/70; PULSE 71; O2SAT 92
[2025-02-09 10:00] VITALS: BP 109/78; PULSE 71; O2SAT 91
[2025-02-09 11:30] VITALS: BP 102/66; PULSE 63; O2SAT 91
[2025-02-09 12:04] VITALS: BP 108/74; PULSE 67; O2SAT 90
== END 2025-02-09 12:05 | disposition home or self-care (01) ==
PROVIDERS: Emergency Provider Family Medicine; Family Provider Orthopaedic Surgery; PCP Family Medicine
DX: M48.061 Spinal stenosis, lumbar region without neurogenic claudication (principal); I95.9 Hypotension, unspecified; E11.65 Type 2 diabetes mellitus with hyperglycemia; Z79.4 Long term (current) use of insulin; Z79.82 Long term (current) use of aspirin; F17.210 Nicotine dependence, cigarettes, uncomplicated; I25.10 Atherosclerotic heart disease of native coronary artery without angina pectoris; J44.9 Chronic obstructive pulmonary disease, unspecified; E11.9 Type 2 diabetes mellitus without complications; I10 Essential (primary) hypertension
CPT/HCPCS: 36415; 71045; 80053; 85025; 93005; 96365; 99285; J7040

== ENCOUNTER 2025-02-12 08:20 | Outpatient (CLI) | payer MEDICARE, SELFPAY ==
--- NOTE | 2025-02-12 | ECG_ITS ---
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 The perfusion scan will be documented separately. DATA: Baseline heart rate was 108 beats per minute. Baseline blood pressure was 110/74 millimeters of mercury. Target heart rate was 155 Maximum heart rate achieved was 135 which was 87% of the predicted target heart rate. Maximum blood pressure lzh508/87 millimeters of mercury. The reason for ending the test was [completion of the protocol]. The patient did not experience any symptoms. ELECTROCARDIOGRAM: BASELINE: Sinus rhythm. Normal axis. Otherwise, nonspecific inferolateral ST-T mild depression noted. No arrhythmia noted. EXERCISE: After Lexiscan injection, no ST-T changes suggestive of ischemic noted. No arrhythmia noted. CONCLUSION: Please note due to baseline abnormality of the EKG specificity and sensitivity of the EKG portion of LexiScan MIBI stress test will be low 1. [EKG not suggestive of ischemia] 2. [Lexiscan injection unremarkable]. 3. Perfusion scan will be documented separately. Electronically Signed On 03-07-2025 20:21:12 CDT by JESSE FONTANA [email or web address]
--- NOTE | 2025-02-12 08:25 | NMCV_ITS ---
NM cliff perf SPECT r/s* [id number] Yessi Schulte Age: 64 Gender: F : 1960 Exam Date: 02/12/2025 09:11 Ordering Phys: Tanvir Thrasher M.D ([email or web address]) Technologist: ISHMAEL Vigil Exam Location: [facility] Indications: cp STRESS TEST Please see separate stress test report in [facility] for full findings IMAGE PROTOCOL Rest/Stress 1 Lexiscan Day Radiopharmaceutical Dose (mCi) Administration Site Administered by Rest: Tc-99m 10.5 IV Munira Watkins INSIDE SALES ACCOUNT EXECUTIVE Sestamibi Stress:Tc-99m 32.6 IV Munira Navasgle, INSIDE SALES ACCOUNT EXECUTIVE Sestamibi Rest: 12-Feb-2025 60 Discovery 630 Stress: 12-Feb-2025 30 Discovery 630 0.4mg Lexiscan. Supine position only as patient was unable to lay prone. SPECT RESULTS Technical Quality: Good Raw Data Analysis: Normal Image Corrections: No attenuation or motion correction applied Summed Stress Score: 0 Summed Rest Score: 0 Summed Difference Score: 0 PERFUSION FINDINGS SPECT images demonstrate homogeneous tracer distribution throughout the myocardium. FUNCTIONAL RESULTS (calculated via Gated SPECT) Stress Image LV EF (%): 94 Stress EDV (mL):18 TID: 0.67 Stress ESV (mL):1 Rest Image LV EF (%): 70 FUNCTIONAL FINDINGS: There is normal left ventricular systolic function. IMPRESSIONS Myocardial perfusion imaging is normal. Agus Cassidy MD (Electronically Signed) Final Date: 15 February 2025 14:42 S
[2025-02-12] MEDS: aminophylline 25 mg/mL SDV 20 mL IVP (10:20)
[2025-02-12 10:23] VITALS: BP 98/67; PULSE 129
== END 2025-02-12 08:21 | disposition home or self-care (01) ==
LOC: CDL 08:20
PROVIDERS: Family Provider Orthopaedic Surgery; PCP Family Medicine; Visit Provider Internal Medicine
DX: R07.9 Chest pain, unspecified (principal)
CPT/HCPCS: 36415; 78452; 93017; 96374; 96375; A9500; J0280; J2785

== ENCOUNTER 2025-02-19 06:52 | Day surgery (SDC) | payer MEDICARE, SELFPAY ==
[2025-02-19] VITALS (20 sets, daily range): BP systolic 102–140; BP diastolic 66–100; PULSE 72–101; RESP 15–16; TEMP 36.2–36.4; O2SAT 93–100; BMI 19.1
--- NOTE | 2025-02-19 06:47 | ANES.PREANE2 ---
Pre-Anesthetic Assessment Height/Weight: Height 5 ft 1 in Preop Diagnosis: Spinal stenosis Operation Date: 02/19/25 08:00 Proposed Procedures p Lumbar Spine Decompression Lumbar Decompression(Not Applicable) - Wai Caldwell, DO Was Beta Anshul taken within 24 hours: N/A Was Clonidine taken within 24 hours: N/A Social Tobacco and No alcohol Exam alert and oriented x 3 Airway Cervical ROM: Other (Prior cervical spine surgery) Mallampati: Class II Dentition: caps Anesthetic Plan ASA status: 4 Anesthesia: General Other: No prior issues with anesthesia NPO since yesterday evening History of asthma controlled with inhalers Prior CAD with NSTEMI in 2023. S/p RCA stent which was found to be stable and patent on most recent cath History of GERD on Protonix Type II DM, on insulin. Will check preop BS Labs reviewed from 02/09/2025 and acceptable for procedure Recent stress test on 02/12/2025 which was negative EKG showing moderate T wave abnormality Plan for GETA Medications/Allergies Home Medications ?Medication ?Instructions ?Recorded ?Confirmed ?Last Taken ?Type epinephrine 0.3 mg/0.3 mL 0.3 mg (0.3 mL) IM Q4H PRN 10/30/23 02/19/25 Unknown Rx injection, auto-injector (EpiPen anaphylaxis #2 ea 2-Redd) clopidogrel 75 mg tablet 75 mg PO DAILY #90 tabs 03/31/24 02/19/25 02/04/25 Rx Held on 01/21/25. 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 Instructions: see pcp albuterol sulfate 90 mcg/actuation 2 puff inhalation QID PRN 10/29/24 02/19/25 Unknown Rx aerosol inhaler Shortness Of Breath #8.5 grams aspirin 81 mg tablet,delayed 81 mg PO DAILY 30 days #30 tabs 10/31/24 02/19/25 02/17/25 Rx release clonazepam 0.5 mg tablet 0.5 mg PO BID #60 tabs 12/19/24 02/19/25 02/18/25 Rx pen needle, diabetic 32 gauge x #100 ea 01/05/25 02/19/25 Unknown Rx 5/32 (TechLITE Pen Needle) metoprolol succinate 25 mg 25 mg PO BID 01/20/25 02/19/25 02/08/25 History tablet,extended release 24 hr Held on 01/28/25. Instructions: Doctor's Order potassium chloride 10 mEq 10 meq PO DAILY #30 tabs 01/28/25 02/19/25 02/18/25 Rx tablet,extended release (Klor-Con) buspirone 15 mg tablet 7.5 mg PO BID 02/09/25 02/19/25 02/18/25 History isosorbide mononitrate 60 mg 60 mg PO BID PRN high bp 02/09/25 02/19/25 Unknown History tablet,extended release 24 hr sertraline 100 mg tablet (Zoloft) 100 mg PO QPM 02/09/25 02/19/25 02/18/25 History Allergies Allergy/AdvReac Type Severity Reaction Status Date / Time ciprofloxacin (From Cipro) Allergy Severe Unresponsiv Verified 02/19/25 07:05 e codeine Allergy Severe ALGY-Anaphy Verified 02/19/25 07:05 laxis lidocaine Allergy Severe ALGY-Swell Verified 02/19/25 07:05 Lip/Tongue/Throat morphine Allergy Severe ALGY-Anaphy Verified 02/19/25 07:05 laxis Penicillins Allergy Severe ALGY-Swell Verified 02/19/25 07:05 Lip/Tongue/Throat procaine (From Novocain) Allergy Severe ALGY-Swell Verified 02/19/25 07:05 Lip/Tongue/Throat prochlorperazine (From Allergy Severe ALGY-Swell Verified 02/19/25 07:05 Compazine) Lip/Tongue/Throat adhesive tape Allergy Unknown Unknown Verified 02/19/25 07:05 Sulfa (Sulfonamide Allergy Unknown Unknown Verified 02/19/25 07:05 Antibiotics) methocarbamol Allergy ALGY-Redness Verified 02/19/25 07:05 of Skin [facility] Anesthesia Medical History (Updated 02/09/25 @ 11:53 by Uriel Bae DO) Cervical spondylosis Head injury due to trauma Concussion Neck pain Liver mass on CT 05/19 and LDCT 08/18; US 09/18 shows it is simple cyst Mixed dyslipidemia COPD (chronic obstructive pulmonary disease) Polyneuropathy associated with underlying disease CAD (coronary artery disease) one stent Type 2 diabetes mellitus Screening for lung cancer LDCT ordered for 09/18 Nicotine dependence, cigarettes, with other nicotine-induced disorders Psychiatric care Claudication Essential hypertension Neutrophilic leukocytosis Myocardial infarction acute 09/2019 Depression sees psychiatry Surgical History History of hip surgery R hip replacement after femoral neck fx 10/30/24 Hx of bilateral cataract extraction History of bladder surgery [facility]. Home Hx of cervical spine surgery X 2; one done at [facility], one done at [facility]. Home History of 3 sections S/P DONNA-BSO done b/c of ruptured uterus; no cancer History of incisional hernia repair Status post colonoscopy 8.9.23 [facility]--tubular adenoma and other polyps--repeat 3 yrs S/P cardiac cath one stent History of appendectomy H/O exploratory laparotomy Multiple bowel resections--3 X--done b/c of adhesions/blockages S/P cholecystectomy Family History Mother Breast cancer Sister Breast cancer Sister Breast cancer Brother Brain cancer Brother CAD (coronary artery disease) Social History Smoking and tobacco/nicotine status: current every day tobacco/nicotine user cigarettes Packs smoked per day: 0.5 [ Other cigarette details: started age 13] Alcohol intake: current Alcohol intake frequency: holidays/special occasions only Substance/Drug Use: never Household members: spouse and other Details: daughter, son in law and 2 grandkids Marital status: Number of children: 2 Highest education level completed: Bachelor's Degree Current occupational status: retired 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
--- NOTE | 2025-02-19 07:56 | W.PM.OPSUD ---
Surgery/Procedure H&P Update DATE OF PROCEDURE: February 19, 2025 DATE H&P PERFORMED: 01/26/25 H&P UPDATE INFORMATION: I have reviewed H&P completed within last 30 days, I have examined patient prior to procedure and No changes to prior documentation PREOP DIAGNOSIS: Left disc herniation at L4-5 with radiculopathy PLANNED PROCEDURE: Operation Date: 02/19/25 08:00 Proposed Procedures p Lumbar Spine Decompression Lumbar Decompression(Not Applicable) - Wai Caldwell DO
--- NOTE | 2025-02-19 09:07 | XR_ITS ---
WS: [id number] Exam: XR lumbar spine 2-3V* [id number] Date/Time of Exam: 02/19/2025 9:07 AM Reason For Exam: OR PICS DLP: Single AP intraoperative C-arm image of the lower lumbar spine is submitted. The image was obtained for preop localization purposes.
--- NOTE | 2025-02-19 09:31 | PM.OP ---
Operative Report Date of procedure: February 19, 2025 Pre-op diagnosis: Lumbar stenosis with neurogenic claudication L4-5 midline disc herniation Post-op diagnosis: same Procedure done: Left L4-5 laminectomy with partial facetectomy and discectomy Surgeon: Wai Caldwell DO Estimated blood loss (mL): 5 Procedure: Left L4-5 laminectomy with partial facetectomy and discectomy Patient is brought to the operative suite. After undergoing anesthesia they are placed in the prone position. All areas of impingement are well padded. Patient is then prepped and draped in the normal sterile fashion. A skin incision is made over the L4/5 level. This is confirmed under c-arm guidance. A series of dilators are passed and the tubular retractor is docked on the L4 lamina. A bovie is used to clear the soft tissue off the lamina and the L 4/5 facet joint. A high speed jose miguel is then used to perform the laminectomy and take down the medial aspect of the L 4/5 facet joint. A kerrison rongeure was then used to take down the remaining lamina and smooth the edge of the laminectomy up to the point where the ligamentum flavum attaches. Attention was then brought to the medial aspect of the facet joint. The remaining medial aspect of the superior and inferior aspect of the facet joint were taken down with the kerrison from the pedicle of L4 to L 5. The facet joint had significant hypertrophy. Attention was then brought to the Ligamentum Flavum. The ligament was taken down from the lamina of L4 to L5 and out medially to the remaining facet joint. The ligament was thick. The dura was then exposed. The dura was in good repair. L5 nerve was reflected medially with a dura Rico retractor. Disc space was identified using curved curette was opened large amounts of disc fragments were removed. This was irrigated L3 fragments removed with pituitary. The L4 nerve was then traced with a curette out the L4/5 foramen and found to be adequately decompressed. The L5 nerve was traced with a curette around the L5 pedicle. The lateral recess was opened with a kerrison helping to further decompress the L5 nerve. Wound is then irrigated copiously with saline and surgiflo is used to stop any bleeding. The tubular retractor is removed and the wound is closed with vicryl and monocryl suture. Steri strips were applied. A sterile dressing is then placed. Patient was then placed in the supine position and transferred to the PACU in stable condition.
[2025-02-19] MEDS: fentaNYL 50 mcg/mL INJ 2mL IVP ×2 (09:35→09:52)
--- NOTE | 2025-02-19 09:48 | ECG_ITS ---
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
--- NOTE | 2025-02-19 11:12 | PC.NURSE ---
Discharge delayed due to pt being allergic to prescribed hydrocodone, provider to change rx to tramadol 100mg. Provider is still in case and cannot change discharge at this time. Awaiting this to discharge.
--- NOTE | 2025-02-19 12:10 | ANE.PACU2 ---
Inpatient post-anesthesia follow up: Airway intact: Yes Vital signs: Temperature 97.1 F Pulse Rate 72 Respiratory Rate 16 Blood Pressure 110/72 Pulse Oximetry 96 Oxygen Delivery Me thod Room Air Oxygen Flow Rate 4 Fraction of Inspir ed Oxygen Hydration adequate: Yes Nausea and vomiting: No Pain level: 1 Mental status: Baseline
--- NOTE | 2025-02-19 12:20 | PC.NURSE ---
Patient IV infiltrated. heat and compression applied and left on for 15 minutes prior to dc. Patient and family educated on what to watch for and how to care for site.
== END 2025-02-19 12:10 | disposition home or self-care (01) ==
PROVIDERS: Family Provider Orthopaedic Surgery; PCP Family Medicine; Visit Provider Orthopaedic Surgery
PROC: (CPT 63005; principal; 2025-02-19 08:00)
DX: M48.062 Spinal stenosis, lumbar region with neurogenic claudication (principal); M51.26 Other intervertebral disc displacement, lumbar region; I25.10 Atherosclerotic heart disease of native coronary artery without angina pectoris; K21.9 Gastro-esophageal reflux disease without esophagitis; I25.2 Old myocardial infarction; E11.9 Type 2 diabetes mellitus without complications; Z79.4 Long term (current) use of insulin; Z79.82 Long term (current) use of aspirin; J44.9 Chronic obstructive pulmonary disease, unspecified; I10 Essential (primary) hypertension; F32.A Depression, unspecified; F17.210 Nicotine dependence, cigarettes, uncomplicated
CPT/HCPCS: 63047; 36416; 72100; 82962; 93005; J1100; J2250; J2405; J2704; J3010; J3490; J7030; J9999

== ENCOUNTER → 2025-03-04 13:14 | Outpatient (BNVA) | payer MEDICARE, SELFPAY | PROVIDERS: PCP Family Medicine; Visit Provider Internal Medicine | DX: I25.10 Atherosclerotic heart disease of native coronary artery without angina pectoris (principal); E78.2 Mixed hyperlipidemia; F17.210 Nicotine dependence, cigarettes, uncomplicated | CPT/HCPCS: 99024; 99214 ==

== ENCOUNTER → 2025-04-08 14:06 | Outpatient (BNVA) | payer MEDICARE, SELFPAY | PROVIDERS: PCP Family Medicine; Visit Provider Orthopaedic Surgery | DX: Z98.890 Other specified postprocedural states (principal) | CPT/HCPCS: 99024 ==

== ENCOUNTER 2025-04-30 08:51 | Inpatient (IN) | payer MEDICARE, SELFPAY ==
[2025-04-30] VITALS (77 sets, daily range): BP systolic 62–150; BP diastolic 48–91; PULSE 94–166; RESP 15–34; TEMP 35.8–36.8; O2SAT 86–100; BMI 14.8; BMI 14.5
--- NOTE | 2025-04-30 09:14 | XR_ITS ---
WS: [id number] Exam: XR chest 1V portable [id number] Date/Time of Exam: 04/30/2025 9:16 AM Reason For Exam: ams Comparison 01/30/2025. Lungs are fully expanded and clear. Normal cardiomediastinal silhouette. Bony structures are intact. Signs of T12 vertebroplasty. Fusion hardware in the lower C-spine. XR/XR chest 1V portable [id number] IMPRESSION: 1. No acute cardiopulmonary finding.
--- NOTE | 2025-04-30 09:26 | W.ED.GENADLT ---
HPI - General Adult General: Chief complaint: Altered Mental Status Stated complaint: flue systomps Time Seen by Provider: 04/30/25 09:07 Source: patient Mode of arrival: ambulatory Limitations: no limitations and altered mental status History of Present Illness: 64-year-old female who is here with her he states that she has been sick over the last 2 to 3 days states she has been having nausea vomiting states that she had decreased oral intake. He states starting yesterday she became lethargic currently she is only responding to painful stimuli and unable to get her to answer any questions. Patient does appear very dehydrated and is hypotensive here. He denied that she had had any fevers. She had not complained of any pain. Related Data Home Medications ?Medication ?Instructions ?Recorded ?Confirmed gabapentin 600 mg tablet 600 mg PO BID 10/28/24 04/30/25 olanzapine 7.5 mg tablet 7.5 mg PO QPM 10/28/24 04/30/25 pantoprazole 40 mg tablet,delayed 40 mg PO DAILY 10/28/24 04/30/25 release prazosin 5 mg capsule 5 mg PO QPM 10/28/24 04/30/25 Held on 02/25/25. Instructions: Order Change buspirone 15 mg tablet 7.5 mg PO BID 02/09/25 04/30/25 sertraline 100 mg tablet (Zoloft) 100 mg PO QPM 02/09/25 04/30/25 clonazepam 1 mg tablet 0.5 - 1 mg PO DAILY PRN aggitation 04/30/25 04/30/25 insulin glargine 100 unit/mL (3 10 unit SUBCUT QPM 04/30/25 04/30/25 mL) subcutaneous pen (Lantus Solostar U-100 Insulin) Previous Rx's ?Medication ?Instructions ?Recorded epinephrine 0.3 mg/0.3 mL 0.3 mg (0.3 mL) IM Q4H PRN 10/30/23 injection, auto-injector (EpiPen anaphylaxis #2 ea 2-Redd) clopidogrel 75 mg tablet 75 mg PO DAILY #90 tabs 03/31/24 Held on 02/19/25. Instructions: Resume on 02/21/25. nitroglycerin 0.4 mg sublingual 0.4 mg sublingual Q5M PRN Chest 03/31/24 tablet (Nitrostat) Pain #20 tabs trazodone 100 mg tablet 200 mg (2 x 100 mg) PO .HS PRN 06/12/24 insomnia #60 tabs 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 sensor (FreeStyle #2 ea 07/28/24 Selwyn 3 Sensor device) 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,traffic division commanding officer,cont #1 ea 07/28/24 (FreeStyle Sel[place] 3 Burton) albuterol sulfate 90 mcg/actuation 2 puff inhalation QID PRN 10/29/24 aerosol inhaler Shortness Of Breath #8.5 grams aspirin 81 mg tablet,delayed 81 mg PO DAILY 30 days #30 tabs 10/31/24 release Held on 02/19/25. Instructions: Resume on 02/21/25. potassium chloride 10 mEq 10 meq PO DAILY #30 tabs 01/28/25 tablet,extended release (Klor-Con) pen needle, diabetic 32 gauge x #100 ea 04/06/25 (TechLITE Pen Needle) midodrine 10 mg tablet 10 mg PO TID #270 tabs 04/26/25 Allergies Allergy/AdvReac Type Severity Reaction Status Date / Time ciprofloxacin (From Cipro) Allergy Severe Unresponsiv Verified 04/08/25 08:28 e codeine Allergy Severe ALGY-Anaphy Verified 04/08/25 08:28 laxis lidocaine Allergy Severe ALGY-Swell Verified 04/08/25 08:28 Lip/Tongue/Throat morphine Allergy Severe ALGY-Anaphy Verified 04/08/25 08:28 laxis Penicillins Allergy Severe ALGY-Swell Verified 04/08/25 08:28 Lip/Tongue/Throat procaine (From Novocain) Allergy Severe ALGY-Swell Verified 04/08/25 08:28 Lip/Tongue/Throat prochlorperazine (From Allergy Severe ALGY-Swell Verified 04/08/25 08:28 Compazine) Lip/Tongue/Throat adhesive tape Allergy Unknown Unknown Verified 04/08/25 08:28 Sulfa (Sulfonamide Allergy Unknown Unknown Verified 04/08/25 08:28 Antibiotics) methocarbamol Allergy ALGY-Redness Verified 04/08/25 08:28 of Skin Review of Systems General: Reports: ROS unobtainable due to medical condition and ROS unobtainable due to mental status PFS ED PFSH: Medical History Cervical spondylosis Head injury due to trauma Concussion Neck pain Liver mass on CT 05/19 and LDCT 08/18; US 09/18 shows it is simple cyst Mixed dyslipidemia COPD (chronic obstructive pulmonary disease) Polyneuropathy associated with underlying disease CAD (coronary artery disease) one stent Type 2 diabetes mellitus Screening for lung cancer LDCT ordered for 09/18 Nicotine dependence, cigarettes, with other nicotine-induced disorders Psychiatric care Claudication Essential hypertension Neutrophilic leukocytosis Myocardial infarction acute 09/2019 Depression sees psychiatry Surgical History History of lumbar laminectomy 02.19.25 Dr. Caldwell L4-5 left laminectomy History of hip surgery R hip replacement after femoral neck fx 10/30/24 Hx of bilateral cataract extraction History of bladder surgery [facility]. Home Hx of cervical spine surgery X 2; one done at [facility], one done at [facility]. Home History of 3 sections S/P DONNA-BSO done b/c of ruptured uterus; no cancer History of incisional hernia repair Status post colonoscopy 8.9.23 O[facility]--tubular adenoma and other polyps--repeat 3 yrs S/P cardiac cath one stent History of appendectomy H/O exploratory laparotomy Multiple bowel resections--3 X--done b/c of adhesions/blockages S/P cholecystectomy Family History Mother Breast cancer Sister Breast cancer Sister Breast cancer Brother Brain cancer Brother CAD (coronary artery disease) Social History Smoking and tobacco/nicotine status: current every day tobacco/nicotine user cigarettes Packs smoked per day: 0.5 [ Other cigarette details: started age 13] Alcohol intake: current Alcohol intake frequency: holidays/special occasions only Substance/Drug Use: never Household members: spouse and other Details: daughter, son in law and 2 grandkids Marital status: Number of children: 2 Highest education level completed: Bachelor's Degree Current occupational status: 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 Female Reproductive History: Spontaneous abortions: No Physical Exam Const: COMMON NORMALS: negative for patient oriented x3 EXAM LIMITATIONS: altered mental status GENERAL APPEARANCE: ill appearing and frail appearing HENMT: COMMON NORMALS: normocephalic and atraumatic HEAD & SCALP: normocephalic and atraumatic Eye: COMMON NORMALS: Equal, round and reactive pupils present and EOMs intact bilaterally PUPIL: Yes Equal, round and reactive pupils present Neck/C-Spine: COMMON NORMALS: full ROM and supple Chest: COMMONS NORMALS: normal inspection of the chest Resp: COMMON NORMALS: normal respiratory effort, No retractions, No use of accessory muscles and clear to auscultation bilaterally AUSCULTATION: clear to auscultation bilaterally Cardio: COMMON NORMALS: regular rhythm and No murmurs present (Cardio) RATE: tachycardic RHYTHM: regular rhythm GI: COMMON NORMALS: Normal to inspection, nondistended, normoactive bowel sounds present, Soft to palpation, non-tender and no masses PALPATION: Yes Soft to palpation Extremity: COMMON NORMALS: normal to inspection and full ROM Neuro: COMMON NORMALS: negative for patient oriented x3 Psych: COMMON NORMALS: negative for mental status grossly normal Skin: COMMON NORMALS: no rashes or lesions noted and no wounds GENERAL SKIN EXAM: no rashes or lesions noted Course Vital Signs: Vital signs: Vital Signs Temperature 96.5 F L 04/30/25 09:08 Pulse Rate 133 H 04/30/25 13:23 Respiratory Rate 21 H 04/30/25 09:08 Blood Pressure 111/75 04/30/25 13:23 Pulse Oximetry 98 04/30/25 13:23 Oxygen Delivery Me thod Room Air 04/30/25 13:23 MDM - General Adult Medical Decision Making 64-year-old female presented here with hypotension along with altered mental status. Patient is found here to be in septic shock likely with dehydration as well. She has hyponatremia with acute kidney injury likely from her dehydration. She has a metabolic acidosis as well. Did give her bicarb along with antibiotics and sepsis fluid bolus here. Patient had a PICC line placed and was started on pressors. Her blood pressure here is improved. Head CT showed no acute abnormalities chest x-ray showed no signs of pneumonia abdominal CT showed no acute abnormalities. I did speak to the hospitalist and will admit to the ICU. EKG 1024 interpreted by me shows sinus tachycardia heart rate [address] elevation QRS 81 QTc 410 critical care time 40 minutes The high probability of a clinically significant, sudden or life threatening deterioration of the patient's metabolic system(s) required my full and direct attention, intervention and personal management. The critical care time is as shown. This time is in addition to time spent performing any reported procedures but includes the following: [x] Data and vital sign review and interpretation [x] Patient assessment, examination and intervention [x] Documentation [x] Medication orders and management Medical Records I reviewed the patient's medical records. Lab Data I reviewed the patient's lab results. 04/30/25 09:27 04/30/25 12:50 Radiology Impressions Chest X-Ray 04/30/25 10:24 IMPRESSION: 1. Right-sided PICC line ending in the lower one third of the SVC in good position. 2. No acute process and no change since the last exam. Abdomen/Pelvis CT 04/30/25 10:55 IMPRESSION: 1. No acute findings in the abdomen or pelvis. 2. Prior cholecystectomy. 3. Postoperative changes GE junction. 4. Prior partial colectomy with small bowel anastomosis. 5. RIGHT MARIE degrades images in the pelvis. 6. Boogie catheter. 7. Vertebroplasty T12. 8. Prior hysterectomy Head CT 04/30/25 10:55 IMPRESSION: 1. No evidence of intracranial hemorrhage or mass effect. 2. No acute intracranial findings. Laboratory Results WBC 15.81 10^3/uL (3.29-11.43) H 04/30/25 09:27 RBC 4.90 10^6/uL (3.85-5.65) 04/30/25 09:27 Hgb 14.70 g/dL (11.27-16.99) 04/30/25 09:27 Hct 44.9 % (36-47) 04/30/25 09:27 MCV 91.6 fl (85-98) 04/30/25 09: MCH 30.0 pg (27-33) 04/30/25 09: MCHC 32.7 g/dL (30-55) 04/30/25 09:27 RDW 15.9 % (12.1-15.1) H 04/30/25 09:27 Plt Count 417 10^3/cmm (157-399) H 04/30/25 09:27 MPV 9.3 fL (7.4-10.4) 04/30/25 09:27 Neut % (Auto) 74.4 % 04/30/25 09:27 Lymph % (Auto) 12.3 % 04/30/25 09:27 Dubois % (Auto) 12.5 % 04/30/25 09: Eos % (Auto) 0.0 % 04/30/25 09:27 Baso % (Auto) 0.2 % 04/30/25 09:27 Neut # (Auto) 11.77 10^3/uL (1.8-7.7) H 04/30/25 09:27 Lymph # (Auto) 1.9 10^3/uL (0.8-4.8) 04/30/25 09: Dubois # (Auto) 2.0 10^3/uL (0.2-0.9) H 04/30/25 09:27 Eos # (Auto) 0.0 10^3/uL (0.0-0.8) 04/30/25 09: Baso # (Auto) 0.0 10^3/uL (0.0-0.1) 04/30/25 09: Nucleated RBC % (auto) 0 % 04/30/25 09: Nucleated RBCs # 0.0 /100WBC 04/30/25 09:27 Specimen Type Arterial 04/30/25 10:14 Sample Site Brachial, left 04/30/25 10:14 ABG pH 7.02 (7.35-7.45) L* 04/30/25 10:14 ABG pCO2 21.4 mmHg (35-45) L 04/30/25 10:14 ABG pO2 142.0 mmHg (80.0-100.0) H 04/30/25 10:14 ABG PO2/FiO2 Ratio 676 04/30/25 10:14 ABG HCO3 5.6 mmol/L (22-26) L 04/30/25 10:14 ABG Base Excess -23.8 mmol/L (-2.0-2.0) L 04/30/25 10:14 Philipp Test N/a 04/30/25 10:14 Hematocrit 34.9 % (37-47) L 04/30/25 10:14 Hgb O2 Saturation 97.7 % (95-100) 04/30/25 10:14 Carboxyhemoglobin 0.8 %THgb (0.4-20.1) 04/30/25 10:14 Methemoglobin 0.3 % (0.4-1.5) L 04/30/25 10:14 Total Hemoglobin 11.4 g/dL (12-16) L 04/30/25 10:14 O2 Delivery Device Room air 04/30/25 10:14 FiO2 21.0 % 04/30/25 10:14 Sales Agent Insurance ID [id number] 04/30/25 10:14 Sodium 157 mmol/L (136-145) H 04/30/25 12:50 Potassium 3.5 mmol/L (3.5-5.1) 04/30/25 12:50 Chloride 114 mmol/L (98-107) H 04/30/25 12:50 Carbon Dioxide 11 mmol/L (22-29) L 04/30/25 12:50 Anion Gap 35.5 (5-19) H 04/30/25 12:50 BUN 62 mg/dL (8-23) H 04/30/25 12:50 Creatinine 1.9 mg/dL (0.5-0.9) H 04/30/25 12:50 GFR Calculation 26.5 mL/min (90-130) L 04/30/25 12:50 Glucose 106 mg/dL (65-115) 04/30/25 12:50 POC Glucose 150 mg/dL (70-110) H 04/30/25 09:09 Calculated Osmolality 342 mOsm/kg (285-295) H 04/30/25 12:50 Lactic Acid 1.9 mmol/L (0.5-2.2) 04/30/25 09:27 Calcium 8.6 mg/dL (8.5-10.5) 04/30/25 12:50 Magnesium 3.1 mg/dL (1.7-2.3) H 04/30/25 09:27 Total Bilirubin 0.5 mg/dL (0.15-1.2) 04/30/25 09:27 AST 30 U/L (0-32) 04/30/25 09:27 ALT 33 U/L (0-33) 04/30/25 09:27 Alkaline Phosphatase 60 U/L (35-105) 04/30/25 09:27 Troponin T Baseline 54 ng/L (0-10) H 04/30/25 09:27 Troponin T 120 Minute 43.48 ng/L (0-10) H 04/30/25 11:24 Delta Troponin T -10.52 ABS# (0-10) L 04/30/25 11:24 Total Protein 7.4 g/dL (6.6-8.7) 04/30/25 09: Albumin 4.7 g/dL (3.5-5.2) 04/30/25 09: Globulin 2.7 g/dL (1.3-4.6) 04/30/25 09: Procalcitonin 0.47 ng/mL (0-0.5) 04/30/25 09: TSH 0.57 uIU/mL (0.27-4.20) 04/30/25 09: Urine Color Yellow (Yellow) 04/30/25 10:02 Urine Appearance Turbid (CLEAR) A 04/30/25 10:02 Urine pH 5.0 (5-7) 04/30/25 10:02 Ur Specific [place] 1.016 (1.005-1.030) 04/30/25 10:02 Urine Protein 2+ (Negative) A 04/30/25 10:02 Urine Glucose (UA) Negative (Normal) 04/30/25 10:02 Urine Ketones 3+ (Negative) H 04/30/25 10:02 Urine Blood 2+ (Negative) A 04/30/25 10:02 Urine Nitrate Negative (Negative) 04/30/25 10:02 Urine Bilirubin Negative (Negative) 04/30/25 10:02 Urine Urobilinogen 1.0 mg/dL (Negative) 04/30/25 10:02 Ur Leukocyte Esterase Trace (Negative) A 04/30/25 10:02 Urine RBC 6-10 /hpf (0-2) 04/30/25 10:02 Urine WBC 0-5 /hpf (0-5) 04/30/25 10:02 Ur Squamous Epith Cells 21-50 /hpf (0-5) H 04/30/25 10:02 Amorphous Sediment Not Reportable 04/30/25 10:02 Urine Bacteria None seen /hpf (NONE) 04/30/25 10:02 Hyaline Casts 222.19 /lpf 04/30/25 10:02 Fine Granular Casts 5-10 /lpf H 04/30/25 10:02 All radiology interpretation(s) finalized by discharge Critical Care Time Critical Care Time: Critical Care Time: Yes Total Critical Care Time: 40 Attestation: The high probability of a clinically significant, sudden or life threatening deterioration of the patient's metabolic system(s) required my full and direct attention, intervention and personal management. The critical care time is as shown. This time is in addition to time spent performing any reported procedures but includes the following: [x] Data and vital sign review and interpretation [x] Patient assessment, examination and intervention [x] Documentation [x] Medication orders and management Discharge Plan Discharge Patient Disposition: Admitted As Inpatient Admit Provider: Hailey Rg Clinical Impression: Vomiting, TALIA (acute kidney injury), Altered mental status Septic shock Qualifiers: Sepsis type: sepsis due to unspecified organism Qualified Code(s): A41.9 - Sepsis, unspecified organism Condition: Stable Coding Level of Care Code ED Crime Scene Specialist for Sonya Patrick
--- NOTE | 2025-04-30 09:45 | PC.NURSE ---
patient was put into soft restraints at 0945 due to patient attempting to rip out ivs, rolling in bed, and concern for falling.
[2025-04-30 10:00] LABS: Hematocrit 44.9 % (36-47); Hemoglobin 14.70 g/dL (11.27-16.99); Mean Corpuscular HGB Conc 32.7 g/dL (30-55); Mean Corpuscular Hemoglobin 30.0 pg (27-33); Mean Corpuscular Volume 91.6 fl (85-98); Nucleated Red Blood Cells % 0 %; Platelet Count 417 10^3/cmm (157-399); Red Blood Count 4.90 10^6/uL (3.85-5.65); White Blood Count 15.81 10^3/uL (3.29-11.43)
[2025-04-30 10:13] LABS: Glucose Urine UA Negative (Normal); Nitrate Urine Negative (Negative); Specific Gravity, Urine 1.016 (1.005-1.030)
[2025-04-30] MEDS: aztreonam 2,000 MG in sodium chloride 0.9% (plus) 100 ML 200 MG IV (10:14)
[2025-04-30 10:17] LABS: Add Urine Microscopic? YES
[2025-04-30] MEDS: ondansetron 2 mg/ML SDV 2 mL 4 MG IVP (10:22)
[2025-04-30] MEDS: LORazepam 2 mg/mL INJ 1 mL 0.5 MG IVP ×2 (10:22→10:53)
--- NOTE | 2025-04-30 10:24 | ECG_ITS ---
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 Measurements Intervals [place] Rate: 114 P: 99 MS: 170 QRS: 88 QRSD: 81 T: 61 QT: 342 QTc: 472 Interpretive Statements SINUS TACHYCARDIA SEPTAL MYOCARDIAL INFARCTION , OF INDETERMINATE AGE [40+ ms Q WAVE IN V1/V2] Compared to ECG 02/19/2025 09:48:35 Myocardial infarct finding now present Sinus rhythm no longer present T-wave abnormality no longer present Possible ischemia no longer present Baseline artifacts, need to repeat Electronically Signed On 04-30-2025 18:44:40 EXPERIMENTAL OUTBOARD MOTORS MECHANIC by Hernan Coffman M.D. [email or web address]
--- NOTE | 2025-04-30 10:24 | XR_ITS ---
WS: [id number] Exam: XR chest 1V portable [id number] Date/Time of Exam: 04/30/2025 10:24 AM Reason For Exam: PICC line insertion--Effie will call when completed Comparison with the latest exam performed on the same day at 10:03 a.m. A right-sided PICC line has been placed and ends in the lower one third of the SVC in good position. The lungs are clear and fully expanded. Heart size is normal. No pleural effusions. XR/XR chest 1V portable [id number] IMPRESSION: 1. Right-sided PICC line ending in the lower one third of the SVC in good posit ion. 2. No acute process and no change since the last exam.
[2025-04-30 10:25] LABS: Lactic Sepsis W/Reflex 1.9 mmol/L (0.5-2.2)
[2025-04-30 10:26] LABS: ABG PCO2 21.4 mmHg (35-45); Arterial Blood Gas Hematocrit 34.9 % (37-47); Blood Gas Operator Identificat glc; Blood Gas Sample Site Brachial, left; Blood Gas Sample Type Arterial; Carboxyhemoglobin 0.8 %THgb (0.4-20.1); HCO3 ABG 5.6 mmol/L (22-26); Methemoglobin 0.3 % (0.4-1.5); PO2 ABG 142.0 mmHg (80.0-100.0); PO2 FiO2 Ratio Arterial Blood 676
[2025-04-30 10:27] LABS: Troponin(5th) Baseline 54 ng/L (0-10)
[2025-04-30 10:37] LABS: Procalcitonin 0.47 ng/mL (0-0.5); Thyroid Stimulating Hormone 0.57 uIU/mL (0.27-4.20)
[2025-04-30 10:37] LABS: UA Slide Review UA Slide Review Perf
[2025-04-30 10:45] LABS: ABG PH Result 7.02 (7.35-7.45)
[2025-04-30 10:48] LABS: Alanine Aminotransferase 33 U/L (0-33); Albumin Level 4.7 g/dL (3.5-5.2); Alkaline Phosphatase 60 U/L (35-105); Aspartate Amino Transferase 30 U/L (0-32); Blood Urea Nitrogen 64 mg/dL (8-23); Calcium 11.1 mg/dL (8.5-10.5); Chloride 104 mmol/L (98-107); Globulin 2.7 g/dL (1.3-4.6); Glucose 157 mg/dL (65-115); Magnesium 3.1 mg/dL (1.7-2.3); Osmolality Calculated 328 mOsm/kg (285-295); Sodium 148 mmol/L (136-145); Total Protein 7.4 g/dL (6.6-8.7)
[2025-04-30 10:49] LABS: Anion Gap 41.4 (5-19); Potassium 3.4 mmol/L (3.5-5.1)
[2025-04-30 10:51] LABS: Carbon Dioxide 6 mmol/L (22-29)
--- NOTE | 2025-04-30 10:55 | CT_ITS ---
WS: [id number] CT HEAD TECHNIQUE: Noncontrast CT of the head obtained from the skullbase to the vertex. CLINICAL INFORMATION: ams COMPARISON: 01/20/2025 DLP: 770.[address] scans at [facility] use at least one of these dose optimization techniques: automated exposure control; mA and/or kV adjustment per patient size (includes targeted exams where dose is matched to clinical indication); or iterative reconstruction. FINDINGS: No evidence of intracranial hemorrhage or mass effect. Ventricular system and basal cisterns are patent. Mild small vessel changes with mild parenchymal volume loss. No extra-axial fluid collections. No evidence of mass or mass effect. Vascular calcification. Mild LEFT maxillary sinusitis. Mucosal thickening with secretions. Mastoid air cells are well aerated. CT/CT head wo con* [id number] IMPRESSION: 1. No evidence of intracranial hemorrhage or mass effect. 2. No acute intracranial findings.
--- NOTE | 2025-04-30 10:55 | CT_ITS ---
WS: [id number] CT ABDOMEN PELVIS TECHNIQUE: Noncontrast CT of the abdomen and pelvis with coronal and sagittal reformatted images. CLINICAL INFORMATION: vomiting COMPARISON: CT 10/19/2024 DLP: 306.[address] scans at [facility] use at least one of these dose optimization techniques: automated exposure control; mA and/or kV adjustment per patient size (includes targeted exams where dose is matched to clinical indication); or iterative reconstruction. FINDINGS: Lung bases are well aerated. Stable hepatic cyst dome of the liver. Mild fluid distention of the stomach. Fatty atrophy of the pancreas. Splenic artery calcification. Adrenal glands are normal. Normal caliber abdominal aorta. Aortic calcification. Boogie catheter. Postoperative changes RIGHT MARIE. RIGHT MARIE degrades images in the pelvis. Sigmoid diverticulosis. No evidence of small or large bowel obstruction. Prior postoperative changes partial colectomy with areas of small bowel resection with anastomosis. Postoperative changes GE junction. Prior appendectomy. Prior hysterectomy. Vertebroplasty T12. CT/CT abdomen pelvis con [id number] IMPRESSION: 1. No acute findings in the abdomen or pelvis. 2. Prior cholecystectomy. 3. Postoperative changes GE junction. 4. Prior partial colectomy with small bowel anastomosis. 5. RIGHT MARIE degrades images in the pelvis. 6. Boogie catheter. 7. Vertebroplasty T12. 8. Prior hysterectomy
--- NOTE | 2025-04-30 11:09 | PC.PHAR ---
Verified medications via [facility] with last fill date and day supply added in pharmacy notes.
[2025-04-30] MEDS: norepinephrine 4 MG/250 ML BAG 30 MG IV (11:24)
--- NOTE | 2025-04-30 11:29 | PICC.NOTE ---
Addendum entered by Effie Abernathy RN 04/30/25 11:34: report given to Tammie Gutierrez RN. Informed Tammie of need for sterile dressing change d/t minor bleeding underneath dressing. Applied pressure dressing to site, bleeding controlled at this time. Original Note: This nurse was contacted for PICC line insertion. Discussed risks/benefits, obtained consent from who was present in the room. Patient temporarily altered at this time, unable to give verbal consent. This nurse assessed bilateral arms, L arm contraindicated d/t IV infiltration, R arm appropriate. R basilic vein straight, measuring at 3.3mm; apparent best choice for insertion. Catheter total length 32cm with 3cm external. R arm circumference 10cm above R A/C measures at 20cm.
--- NOTE | 2025-04-30 12:19 | ECG_ITS ---
[facility]: [facility]30 Pat Name: Yessi Schulte Department: Room: Gender: Female Lead Cargo Mover: : 1960 Requested By: Evangelista Moses Order Number: [id number] Gen MD: Hernan Coffman M.D. Measurements Intervals [place] Rate: 132 P: 92 [place]: 142 QRS: 89 QRSD: 80 T: 84 QT: 358 QTc: 531 Interpretive Statements SINUS TACHYCARDIA SEPTAL MYOCARDIAL INFARCTION , OF INDETERMINATE AGE [40+ ms Q WAVE IN V1/V2] Compared to ECG 04/30/2025 10:24:08 No significant changes Electronically Signed On 04-30-2025 18:48:52 DATA WAREHOUSE SPECIALIST by Hernan Coffman M.D. [email or web address]
[2025-04-30 13:10] LABS: Anion Gap 35.5 (5-19); Blood Urea Nitrogen 62 mg/dL (8-23); Calcium 8.6 mg/dL (8.5-10.5); Carbon Dioxide 11 mmol/L (22-29); Chloride 114 mmol/L (98-107); Glucose 106 mg/dL (65-115); Osmolality Calculated 342 mOsm/kg (285-295); Potassium 3.5 mmol/L (3.5-5.1); Sodium 157 mmol/L (136-145)
[2025-04-30 14:56] LABS: PCP Screen Urine Negative (Negative)
--- NOTE | 2025-04-30 15:06 | P.CONIM_ITS ---
Providers/Reason For Consult 2 Consulting Physician/Specialty*: Dr. Yanira Smith Reason for Consult*: Patient is obtunded Attending Physician: Hailey Rg MD Primary Care Provider: Tiny Graff MD History of Present Illness History of Present Illness Yessi Schulte is a 64 year old woman brought to the emergency department by her for 3 days of nausea and vomiting followed by lethargy. She was hypotensive on arrival.. She has a history of depression and is seen by psychiatry. She had lumbar decompression 02/19/2025 and was doing well at her postop visit on 04/08. Her CT scan of the head from today shows mild nonspecific white matter changes. Her white count is 15.81 with a mild left shift, but her blood gas showed pH 7.02 with base excess -23.8 of concern for sepsis. Her sodium was elevated at 157, BUN 62 with creatinine 1.9 and the patient has reportedly been vomiting. Calculated osmolality 342. Magnesium 3.1. Review of Systems 2 Narrative: Patient is not awake. Please see Dr. Rg review of systems. The patient's has gone home but just called to check on her Medications/Allergies Home Medications ?Medication ?Instructions ?Recorded ?Confirmed ?Last Taken ?Type epinephrine 0.3 mg/0.3 mL 0.3 mg (0.3 mL) IM Q4H PRN 0 10/30/23 04/30/25 Unknown Rx injection, auto-injector (EpiPen anaphylaxis #2 ea 2-Redd) clopidogrel 75 mg tablet 75 mg PO DAILY #90 tabs 10/1704/30/25 04/25/25 Rx Held on 02/19/25. Instructions: Resume on 02/21/25. 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 Instructions: Order Change albuterol sulfate 90 mcg/actuation 2 puff inhalation Q ID PRN 10/29/24 04/30/25 Unknown Rx aerosol inhaler Shortness Of Breath #8.5 gra ms aspirin 81 mg tablet,delayed 81 mg PO DAILY 30 days #3 0 tabs 10/31/24 04/30/25 04/25/25 Rx release Held on 02/19/25. Instructions: Resume on 02/21/25. potassium chloride 10 mEq 10 meq PO DAILY #30 tabs 09/1804/30/25 04/25/25 Rx tablet,extended release (Klor-Con) buspirone 15 mg tablet 7.5 mg PO BID 02/09/2504/3004/25/25 History sertraline 100 mg tablet (Zoloft) 100 mg PO QPM 04/30/25 04/25/25 History pen needle, diabetic 32 gauge x #100 ea 04/06/2504/30 Unknown Rx (TechLITE Pen Needle) midodrine 10 mg tablet 10 mg PO TID #270 tabs 04/2604/30/25 04/25/25 Rx clonazepam 1 mg tablet 0.5 - 1 mg PO DAILY PRN aggi tation 04/30/25 04/30/25 Unknown History insulin glargine 100 unit/mL (3 10 unit SUBCUT QPM 10/1804/30/25 04/25/25 History mL) subcutaneous pen (Lantus Solostar U-100 Insulin) prazosin 5 mg capsule mg 04/30/25 04/30/25 Unknown History Allergies Allergy/AdvReac Type Severity Reaction Status Date / Time ciprofloxacin (From Cipro) Allergy Severe Unresponsiv Verified 04/08/25 08:28 e codeine Allergy Severe ALGY-Anaphy Verified 04/08/25 08:28 laxis lidocaine Allergy Severe ALGY-Swell Verified 04/08/25 08:28 Lip/Tongue/Throat morphine Allergy Severe ALGY-Anaphy Verified 04/08/25 08:28 laxis Penicillins Allergy Severe ALGY-Swell Verified 04/08/25 08:28 Lip/Tongue/Throat procaine (From Novocain) Allergy Severe ALGY-Swell Verified 04/08/25 08:28 Lip/Tongue/Throat prochlorperazine (From Allergy Severe ALGY-Swell Verified 04/08/25 08:28 Compazine) Lip/Tongue/Throat adhesive tape Allergy Unknown Unknown Verified 04/08/25 08:28 Sulfa (Sulfonamide Allergy Unknown Unknown Verified 04/08/25 08:28 Antibiotics) methocarbamol Allergy ALGY-Redness Verified 04/08/25 08:28 of Skin Current Medications Generic Name Dose Route Start Last Admin Trade Name Freq PRN Reason Stop Dose Admin Norepinephrine Bitartrate 4 mg in 250 mls @ 0 mls/hr 04/30/25 11:15 04/30/25 11:24 Levophed IV 8 mcg/min .Q0M ISABELLA 30 mls/hr Protocol Administration Per Protocol Dextrose 1,000 mls @ 150 mls/hr 04/30/25 14:30 04/30/25 14:48 D5w IV 150 mls/hr .Q6H40M ISABELLA Administration Sodium Bicarbonate 150 meq/ 1,150 mls @ 150 mls/hr 04/30/25 15:00 04/30/25 14:46 Dextrose IV 150 mls/hr .Q7H40M ISABELLA Administration PFSH Acute 2 PFSH: Medical History Cervical spondylosis Head injury due to trauma Concussion Neck pain Liver mass on CT 05/19 and LDCT 08/18; US 09/18 shows it is simple cyst Mixed dyslipidemia COPD (chronic obstructive pulmonary disease) Polyneuropathy associated with underlying disease CAD (coronary artery disease) one stent Type 2 diabetes mellitus Screening for lung cancer LDCT ordered for 09/18 Nicotine dependence, cigarettes, with other nicotine-induced disorders Psychiatric care Claudication Essential hypertension Neutrophilic leukocytosis Myocardial infarction acute 09/2019 Depression sees psychiatry Surgical History History of lumbar laminectomy 02.19.25 Dr. Caldwell L4-5 left laminectomy History of hip surgery R hip replacement after femoral neck fx 10/30/24 Hx of bilateral cataract extraction History of bladder surgery [facility] [place] Hx of cervical spine surgery X 2; one done at [facility], one done at [facility]. Home History of 3 sections S/P DONNA-BSO done b/c of ruptured uterus; no cancer History of incisional hernia repair Status post colonoscopy 8.02.16 [facility]--tubular adenoma and other polyps--repeat 3 yrs S/P cardiac cath one stent History of appendectomy H/O exploratory laparotomy Multiple bowel resections--3 X--done b/c of adhesions/blockages S/P cholecystectomy Family History Mother Breast cancer Sister Breast cancer Sister Breast cancer Brother Brain cancer Brother CAD (coronary artery disease) Social History Smoking and tobacco/nicotine status: current every day tobacco/nicotine user cigarettes Packs smoked per day: 0.5 [ Other cigarette details: started age 13] Alcohol intake: current Alcohol intake frequency: holidays/special occasions only Substance/Drug Use: never Household members: spouse and other Details: daughter, son in law and 2 grandkids Marital status: Number of children: 2 Highest education level completed: Bachelor's Degree Current occupational status: retired Previous occupational history: [employer] Female Reproductive History: Spontaneous abortions: No Vitals/I&O/Wt Last Vital Signs Temp 97.6 F 04/30/25 14:20 Pulse 142 H 04/30/25 14:20 Resp 22 H 04/30/25 14:20 BP 112/88 04/30/25 14:20 Pulse Ox 99 04/30/25 14:20 O2 Del Method Room Air 04/30/25 14:20 04/30/25 04/30/25 04/30/25 06:59 14:59 22:59 Intake Total 2099 Balance 2099 / 2099 Weight last 48 hrs Weight 78 lb 8 oz Physical Exam 2 Narrative: General: Cachectic middle-aged woman who looks older than her age. Mental status exam: She does not answer questions or follow commands. She appears a abulic. Cranial nerves: Oculocephalic movements intact. I cannot tell if she responds to threat. PERRL. Facial movements intact grimace. Motor she response to nailbed pressure with withdrawal in all 4 extremities. Deep tendon reflexes: Toes are upgoing. No specific cerebellar signs. HEENT she has a wizzened complexion. She may be slightly dusky and her coloring. Neck was stiff. Chest: Clear to auscultation. Cardiovascular: S1 and S2 normal without murmur or gallop. Extremities: No rash Urinary Catheter Management: Boogie: Cath Placed During This Visit: yes Urinary Catheter Date of Insertion: 04/30/25 Urinary Catheter Time of Insertion: 11:02 Data 04/30/25 09:27 04/30/25 15:42 Micro: Microbiology 04/30/25 09:51 Blood Culture - Preliminary Blood SPECIMEN COLLECTED 04/30/25 09:27 Blood Culture - Preliminary Blood SPECIMEN COLLECTED CT Head: My impression: Diffuse white matter disease unchanged from 01/20/2025 and 10/26/2024 A&P Assessment and plan 1. Toxic metabolic encephalopathy: She presents with profound dehydration and multiple electrolyte abnormalities with profound metabolic acidosis. Dr. Rg is pursuing the possibility of an intoxication. 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 Patient was unable to give informed consent. She had no discomfort with the procedure. Procedure separately documented. Her fluid was clear. I would point out that she had back surgery 2 months ago and I would not be surprised if her protein is elevated and she might still have a few white cells. Discussed with Dr. Rg. There is no sign that she had a seizure and I do not see evidence of seizure activity. 2. Status post lumbar laminectomy: 3. Major depressive disorder, recurrent severe without psychotic features: PDMP PDMP Reviewed: Not Reviewed Consult Attestations 2 Medical Necessity Statement: Patient with unexplained coma and critically ill Coding Level of Care Code 25369 Diagnoses Toxic metabolic encephalopathy G92.8 Status post lumbar laminectomy Z98.890 Major depressive disorder, recurrent severe without psychotic features F33.2
[2025-04-30 15:19] LABS: PCP Screen Urine Negative (Negative)
--- NOTE | 2025-04-30 15:39 | PHA.VACGOAL ---
Vancomycin Goal - Goal Vancomycin Goal:: 15-20 mg/L Vancomycin Indication:: Other (DIAGNOSIS CURRENTLY UNKNOWN) - Therapy Current therapy:: Azithromycin, Meropenem Day of therpy:: Day []of [] . Actual body weight (kg): 78 lb 8 oz - Data Labs: WBC 15.81 10^3/uL (3.29-11.43) H 04/30/25 09:27 RBC 4.90 10^6/uL (3.85-5.65) 04/30/25 09:27 Hgb 14.70 g/dL (11.27-16.99) 04/30/25 09:27 Hct 44.9 % (36-47) 04/30/25 09: MCV 91.6 fl (85-98) 04/30/25 09:27 MCH 30.0 pg (27-33) 04/30/25 09: MCHC 32.7 g/dL (30-55) 04/30/25 09:27 RDW 15.9 % (12.1-15.1) H 04/30/25 09:27 Sodium 157 mmol/L (136-145) H 04/30/25 12:50 Potassium 3.5 mmol/L (3.5-5.1) 04/30/25 12:50 Chloride 114 mmol/L (98-107) H 04/30/25 12:50 Carbon Dioxide 11 mmol/L (22-29) L 04/30/25 12:50 Anion Gap 35.5 (5-19) H 04/30/25 12:50 BUN 62 mg/dL (8-23) H 04/30/25 12:50 Creatinine 1.9 mg/dL (0.5-0.9) H 04/30/25 12:50 GFR Calculation 26.5 mL/min (90-130) L 04/30/25 12:50 Drug administration history:: Medications Discontinued Medications Vancomycin HCl 1,000 mg/ (Sodium Chloride) 250 mls @ 250 mls/hr IV ONCE ONE; Protocol Stop: 04/30/25 10:13 Last Admin: 04/30/25 11:32 Dose: 250 mls/hr Treatment plan:: new consult Regimen:: PULSE DOSING PER PROTOCOL DUE TO RENAL FUNCTION. ER GAVE 1000 MG LOADING DOSE. WILL OBTIAN TROUGH AT 0900 ON 05/01.
[2025-04-30 16:02] LABS: Base Excess VBG -18.6 mmol/L (-3.0-3.0); Blood Gas Operator Identificat GD; Blood Gas Sample Site Not specified; Blood Gas Sample Type Venous; HCO3 VBG 9.0 mmol/L (24-28); PCO2 VBG 26.7 mmHg (41-51); PO2 VBG 43.7 mmHg (25-40); Venous Blood Gas Hematocrit 39.5 % (37-47)
[2025-04-30] MEDS: meropenem 1,000 mg SDV 1000 MG IVP (16:02)
[2025-04-30 16:04] LABS: pH VBG 7.14 (7.32-7.42)
[2025-04-30 16:13] LABS: Ammonia 75 umol/L (11-51); Lactate (Lactic Acid level) 1.2 mmol/L (0.5-2.2)
[2025-04-30 16:14] LABS: Troponin 5 6HR 47.64 ng/L (0-10)
[2025-04-30 16:23] LABS: Anion Gap 35.7 (5-19); Blood Urea Nitrogen 66 mg/dL (8-23); Calcium 9.1 mg/dL (8.5-10.5); Carbon Dioxide 10 mmol/L (22-29); Chloride 111 mmol/L (98-107); Glucose 192 mg/dL (65-115); Osmolality Calculated 342 mOsm/kg (285-295); Sodium 154 mmol/L (136-145); Thyroid Stimulating Hormone 0.46 uIU/mL (0.27-4.20)
[2025-04-30 16:29] LABS: Acetaminophen < 5.0 ug/mL (10-30); Alcohol Level < 10 mg/dL (0-10); Salicylate < 0.3 mg/dL (3-10)
[2025-04-30 16:32] LABS: Potassium 2.7 mmol/L (3.5-5.1)
[2025-04-30] MEDS: metoprolol tartrate 1 mg/1 mL SDV 5 mL 5 MG IVP (16:57)
[2025-04-30] MEDS: potassium chloride premix 100 ML 25 MEQ IV (17:03)
--- NOTE | 2025-04-30 17:11 | P.HP_ITS ---
Providers/Chief Complaint 2 Admitting Physician: Hailey Rg MD Primary Care Provider: Tiny Graff MD Chief Complaint: ams History of Present Illness Yessi Schulte is a 64 year old female with past medical history of coronary disease, depression, osteoarthritis, COPD, diabetes presents to the ER with altered mental status. History per . Reports in the past week she has had flulike symptoms. Include nausea vomiting and some diarrhea. Also noted to have recently stopped several medications including BuSpar and Ambien. Also noted not be monitoring blood sugars as closely. She became less responsive today and brought to the ER. And had progressive worsening's in the last 3 days. The patient was noted to be hypotensive. Received IV fluids in the ER. Started on Levophed. Imaging including CT of the head was done. The patient was noted to have severe acidosis. Bicarb was given in the ER. Subsequently have ordered a bicarb drip. Review of Systems 2 General: Reports: ROS unobtainable due to medical condition Medications/Allergies Home Medications ?Medication ?Instructions ?Recorded ?Confirmed ?Last Taken ?Type epinephrine 0.3 mg/0.3 mL 0.3 mg (0.3 mL) IM Q4H PRN 0 10/30/23 04/30/25 Unknown Rx injection, auto-injector (EpiPen anaphylaxis #2 ea 2-Redd) clopidogrel 75 mg tablet 75 mg PO DAILY #90 tabs 10/1704/30/25 04/25/25 Rx Held on 02/19/25. Instructions: Resume on 02/21/25. 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 Instructions: Order Change albuterol sulfate 90 mcg/actuation 2 puff inhalation Q ID PRN 10/29/24 04/30/25 Unknown Rx aerosol inhaler Shortness Of Breath #8.5 gra ms aspirin 81 mg tablet,delayed 81 mg PO DAILY 30 days #3 0 tabs 10/31/24 04/30/25 04/25/25 Rx release Held on 02/19/25. Instructions: Resume on 02/21/25. potassium chloride 10 mEq 10 meq PO DAILY #30 tabs 09/1804/30/25 04/25/25 Rx tablet,extended release (Klor-Con) buspirone 15 mg tablet 7.5 mg PO BID 02/09/2504/3004/25/25 History sertraline 100 mg tablet (Zoloft) 100 mg PO QPM 04/30/25 04/25/25 History pen needle, diabetic 32 gauge x #100 ea 04/06/2504/30 Unknown Rx (TechLITE Pen Needle) midodrine 10 mg tablet 10 mg PO TID #270 tabs 04/2604/30/25 04/25/25 Rx clonazepam 1 mg tablet 0.5 - 1 mg PO DAILY PRN aggi tation 04/30/25 04/30/25 Unknown History insulin glargine 100 unit/mL (3 10 unit SUBCUT QPM 10/1804/30/25 04/25/25 History mL) subcutaneous pen (Lantus Solostar U-100 Insulin) prazosin 5 mg capsule mg 04/30/25 04/30/25 Unknown History Allergies Allergy/AdvReac Type Severity Reaction Status Date / Time ciprofloxacin (From Cipro) Allergy Severe Unresponsiv Verified 04/08/25 08:28 e codeine Allergy Severe ALGY-Anaphy Verified 04/08/25 08:28 laxis lidocaine Allergy Severe ALGY-Swell Verified 04/08/25 08:28 Lip/Tongue/Throat morphine Allergy Severe ALGY-Anaphy Verified 04/08/25 08:28 laxis Penicillins Allergy Severe ALGY-Swell Verified 04/08/25 08:28 Lip/Tongue/Throat procaine (From Novocain) Allergy Severe ALGY-Swell Verified 04/08/25 08:28 Lip/Tongue/Throat prochlorperazine (From Allergy Severe ALGY-Swell Verified 04/08/25 08:28 Compazine) Lip/Tongue/Throat adhesive tape Allergy Unknown Unknown Verified 04/08/25 08:28 Sulfa (Sulfonamide Allergy Unknown Unknown Verified 04/08/25 08:28 Antibiotics) methocarbamol Allergy ALGY-Redness Verified 04/08/25 08:28 of Skin PFSH Acute 2 PFSH: Medical History (Updated 05/02/25 @ 20:39 by Tiny Graff MD) Shock circulatory Cervical spondylosis Head injury due to trauma Concussion Neck pain Liver mass on CT 05/19 and LDCT 08/18; US 09/18 shows it is simple cyst Mixed dyslipidemia COPD (chronic obstructive pulmonary disease) Polyneuropathy associated with underlying disease CAD (coronary artery disease) one stent Type 2 diabetes mellitus Screening for lung cancer LDCT 08.25.24--repeat one year Nicotine dependence, cigarettes, with other nicotine-induced disorders Psychiatric care Claudication Essential hypertension Neutrophilic leukocytosis Myocardial infarction acute 09/2019 Depression sees psychiatry Surgical History History of lumbar laminectomy 02.19.25 Dr. Caldwell L4-5 left laminectomy History of hip surgery R hip replacement after femoral neck fx 10/30/24 Hx of bilateral cataract extraction History of bladder surgery [facility]. Home Hx of cervical spine surgery X 2; one done at [facility], one done at [facility]. Home History of 3 sections S/P DONNA-BSO done b/c of ruptured uterus; no cancer History of incisional hernia repair Status post colonoscopy 8.9.23 [facility]--tubular adenoma and other polyps--repeat 3 yrs S/P cardiac cath one stent History of appendectomy H/O exploratory laparotomy Multiple bowel resections--3 X--done b/c of adhesions/blockages S/P cholecystectomy Family History Mother Breast cancer Sister Breast cancer Sister Breast cancer Brother Brain cancer Brother CAD (coronary artery disease) Social History Smoking and tobacco/nicotine status: current every day tobacco/nicotine user cigarettes Packs smoked per day: 0.5 [ Other cigarette details: started age 13] Alcohol intake: current Alcohol intake frequency: holidays/special occasions only Substance/Drug Use: never Household members: spouse and other Details: daughter, son in law and 2 grandkids Marital status: Number of children: 2 Highest education level completed: Bachelor's Degree Current occupational status: retired Previous occupational history: [employer] Female Reproductive History: Spontaneous abortions: No Vitals/I&O/Wt Last Vital Signs Temp 97.6 F 04/30/25 14:20 Pulse 134 H 04/30/25 16:31 Resp 18 04/30/25 16:15 BP 141/82 04/30/25 16:15 Pulse Ox 95 04/30/25 16:15 O2 Del Method Room Air 04/30/25 16:24 04/30/25 04/30/25 04/30/25 06:59 14:59 22:59 Intake Total 2099 / 2100 Balance 2100 / 2100 Weight last 48 hrs Weight 34.927 kg Weight 35.607 kg Physical Exam 2 Narrative: General: responsive to deep stimuli, thin HEENT: Neck supple Resp:CTA, respirations unlabored CVS: tachycardic Abdomen: thin, soft, NT MSK: No edema Urinary Catheter Management: Boogie: Cath Placed During This Visit: yes Urinary Catheter Date of Insertion: 04/30/25 Urinary Catheter Time of Insertion: 11:02 Data 04/30/25 09:27 05/01/25 06:27 Micro: Microbiology 04/30/25 09:51 Blood Culture - Preliminary Blood SPECIMEN COLLECTED 04/30/25 09:27 Blood Culture - Preliminary Blood SPECIMEN COLLECTED A&P Assessment and plan 1. Metabolic acidosis: 2. Septic shock: Plan: #septic shock -- Unclear etiology --Follow-up cultures --Plan for LP, will continue empiric treatment --On Levophed --check random cortisol --will place a few dose of hydrocortisone #altered mental status -- As above consider MRI, EEG #metabolic acidosis -- Unclear why, questionable severe dehydration versus infection versus poisoning and methanol, ethylene glycol, hydroxy deteriorate level sent #stephane -- IV fluids, repeat labs every 4 hours #dehydration -- As above #N/V/D --reported possible recent viral infection #hypokalemia -- Replace and recheck #history of COPD -- Sats stable on room air #IDDM --fsbs,ssi Plan: 1. Admit to the ICU. Will continue empiric antibiotics including acyclovir, meropenem, vancomycin. Will check labs including BMP, VBG, lactic acid every 4 hours. We contacted poison control. Recommended fomepizole. PDMP PDMP Reviewed: Not Reviewed Attestations 2 Medical Necessity Statement*: ICU care, pressors Coding Level of Care Code 51478 Diagnoses Metabolic acidosis E87.20 Septic shock A41.9; R65.21
--- NOTE | 2025-04-30 17:22 | P.CONIM_ITS ---
Providers/Reason For Consult 2 Consulting Physician/Specialty*: Dr Saúl Wheeler Reason for Consult*: shock Attending Physician: Hailey Rg MD Primary Care Provider: Tiny Graff MD History of Present Illness History of Present Illness Yessi Schulte is a 64 year old female with a medical history of CAD depression COPD diabetes comes into the ER with altered mental status brought in by . She has been having some flulike symptoms at home along with nausea vomiting and some diarrhea. Patient recently stopped BuSpar and Ambien per report. She was given IV fluids in the ER was found to be hypotensive and started on Levophed drip. To be severely acidotic bicarb drip given. Sodium was found to be elevated potassium level, patient was started on D5 drip at 15 0.7% and ceftriaxone started for empiric meningitis coverage. LP done 0 mL/h. K replacement being done aggressively as well. Neurology consulted. LP done Previous systems unobtainable secondary to altered mental status Medications/Allergies Home Medications ?Medication ?Instructions ?Recorded ?Confirmed ?Last Taken ?Type epinephrine 0.3 mg/0.3 mL 0.3 mg (0.3 mL) IM Q4H PRN 0 10/30/23 04/30/25 Unknown Rx injection, auto-injector (EpiPen anaphylaxis #2 ea 2-Redd) clopidogrel 75 mg tablet 75 mg PO DAILY #90 tabs 10/1704/30/25 04/25/25 Rx Held on 02/19/25. Instructions: Resume on 02/21/25. nitroglycerin 0.4 mg sublingual 0.4 mg sublingual Q5M PRN Chest 03/31/24 04/30/25 Unknown Rx tablet (Nitrostat) Pain #20 tabs trazodone 100 mg tablet 200 mg (2 x 100 mg) PO .HS P RN 06/12/24 04/30/25 04/25/25 Rx insomnia #60 tabs 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 sensor (FreeStyle #2 ea 07/28/24 5 Unknown Rx Selwyn 3 Sensor device) 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,director digital sales,cont #1 ea 07/28/24 04/30/25 Un known Rx (FreeStyle Selwyn 3 S[place]tuck) gabapentin 600 mg tablet 600 mg PO BID 10/28/2404/3002/18/25 History olanzapine 7.5 mg tablet 7.5 mg PO QPM 10/28/2404/3004/25/25 History pantoprazole 40 mg tablet,delayed 40 mg PO DAILY 10/2804/30/25 04/25/25 History release prazosin 5 mg capsule 5 mg PO QPM 10/28/24 12/2 5 04/25/25 History Held on 02/25/25. Instructions: Order Change albuterol sulfate 90 mcg/actuation 2 puff inhalation Q ID PRN 10/29/24 04/30/25 Unknown Rx aerosol inhaler Shortness Of Breath #8.5 gra ms aspirin 81 mg tablet,delayed 81 mg PO DAILY 30 days #3 0 tabs 10/31/24 04/30/25 04/25/25 Rx release Held on 02/19/25. Instructions: Resume on 02/21/25. potassium chloride 10 mEq 10 meq PO DAILY #30 tabs 09/1804/30/25 04/25/25 Rx tablet,extended release (Klor-Con) buspirone 15 mg tablet 7.5 mg PO BID 02/09/2504/3004/25/25 History sertraline 100 mg tablet (Zoloft) 100 mg PO QPM 04/30/25 04/25/25 History pen needle, diabetic 32 gauge x #100 ea 04/06/2504/30 Unknown Rx / (TechLITE Pen Needle) midodrine 10 mg tablet 10 mg PO TID #270 tabs 04/2604/30/25 04/25/25 Rx clonazepam 1 mg tablet 0.5 - 1 mg PO DAILY PRN aggi tation 04/30/25 04/30/25 Unknown History insulin glargine 100 unit/mL (3 10 unit SUBCUT QPM 10/1804/30/25 04/25/25 History mL) subcutaneous pen (Lantus Solostar U-100 Insulin) prazosin 5 mg capsule mg 04/30/25 04/30/25 Unknown History Allergies Allergy/AdvReac Type Severity Reaction Status Date / Time ciprofloxacin (From Cipro) Allergy Severe Unresponsiv Verified 04/08/25 08:28 e codeine Allergy Severe ALGY-Anaphy Verified 04/08/25 08:28 laxis lidocaine Allergy Severe ALGY-Swell Verified 04/08/25 08:28 Lip/Tongue/Throat morphine Allergy Severe ALGY-Anaphy Verified 04/08/25 08:28 laxis Penicillins Allergy Severe ALGY-Swell Verified 04/08/25 08:28 Lip/Tongue/Throat procaine (From Novocain) Allergy Severe ALGY-Swell Verified 04/08/25 08:28 Lip/Tongue/Throat prochlorperazine (From Allergy Severe ALGY-Swell Verified 04/08/25 08:28 Compazine) Lip/Tongue/Throat adhesive tape Allergy Unknown Unknown Verified 04/08/25 08:28 Sulfa (Sulfonamide Allergy Unknown Unknown Verified 04/08/25 08:28 Antibiotics) methocarbamol Allergy ALGY-Redness Verified 04/08/25 08:28 of Skin Current Medications Generic Name Dose Route Start Last Admin Trade Name Freq PRN Reason Stop Dose Admin Norepinephrine Bitartrate 4 mg in 250 mls @ 0 mls/hr 04/30/25 11:15 04/30/25 11:24 Levophed IV 8 mcg/min .Q0M ISABELLA 30 mls/hr Protocol Administration Per Protocol Dextrose 1,000 mls @ 150 mls/hr 04/30/25 14:30 04/30/25 14:48 D5w IV 150 mls/hr .Q6H40M ISABELLA Administration Sodium Bicarbonate 150 meq/ 1,150 mls @ 150 mls/hr 04/30/25 15:00 04/30/25 14:46 Dextrose IV 150 mls/hr .Q7H40M ISABELLA Administration Acyclovir 350 mg/ Sodium 107 mls @ 110 mls/hr 04/30/25 16:15 04/30/25 16:21 Chloride IV 110 mls/hr Q24H ISABELLA Administration Potassium Chloride 100 mls @ 25 mls/hr 04/30/25 16:45 04/30/25 17:03 K-Teddy IV 04/30/25 20:44 25 mls/hr ONCE ONE Administration Meropenem 1,000 mg 04/30/25 15:15 04/30/25 16:02 Meropenem 1,000 Mg Sdv IVP 1,000 mg Q12H ISABELLA Administration Protocol PFSH Acute 2 PFSH: Medical History (Updated 04/30/25 @ 18:46 by Saúl Wheeler MD) Shock circulatory Cervical spondylosis Head injury due to trauma Concussion Neck pain Liver mass on CT 05/19 and LDCT 08/18; US 09/18 shows it is simple cyst Mixed dyslipidemia COPD (chronic obstructive pulmonary disease) Polyneuropathy associated with underlying disease CAD (coronary artery disease) one stent Type 2 diabetes mellitus Screening for lung cancer LDCT ordered for 09/18 Nicotine dependence, cigarettes, with other nicotine-induced disorders Psychiatric care Claudication Essential hypertension Neutrophilic leukocytosis Myocardial infarction acute 09/2019 Depression sees psychiatry Surgical History History of lumbar laminectomy 02.19.25 Dr. Caldwell L4-5 left laminectomy History of hip surgery R hip replacement after femoral neck fx 10/30/24 Hx of bilateral cataract extraction History of bladder surgery Vitality urology [facility] Home Hx of cervical spine surgery X 2; one done at [facility], one done at [facility] Home History of 3 sections S/P DONNA-BSO done b/c of ruptured uterus; no cancer History of incisional hernia repair Status post colonoscopy 8.9.23 [facility]--tubular adenoma and other polyps--repeat 3 yrs S/P cardiac cath one stent History of appendectomy H/O exploratory laparotomy Multiple bowel resections--3 X--done b/c of adhesions/blockages S/P cholecystectomy Family History Mother Breast cancer Sister Breast cancer Sister Breast cancer Brother Brain cancer Brother CAD (coronary artery disease) Social History Smoking and tobacco/nicotine status: current every day tobacco/nicotine user cigarettes Packs smoked per day: 0.5 [ Other cigarette details: started age 13] Alcohol intake: current Alcohol intake frequency: holidays/special occasions only Substance/Drug Use: never Household members: spouse and other Details: daughter, son in law and 2 grandkids Marital status: Number of children: 2 Highest education level completed: Bachelor's Degree Current occupational status: 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 Female Reproductive History: Spontaneous abortions: No Vitals/I&O/Wt Last Vital Signs Temp 97.6 F 04/30/25 14:20 Pulse 134 H 04/30/25 16:31 Resp 18 04/30/25 16:15 BP 141/82 04/30/25 16:15 Pulse Ox 95 04/30/25 16:15 O2 Del Method Room Air 04/30/25 16:24 04/30/25 04/30/25 04/30/25 06:59 14:59 22:59 Intake Total 2099 Balance 2099 Weight last 48 hrs Weight 77 lb Weight 78 lb 8 oz Physical Exam 2 Narrative: Per RN General: Altered mental status but protecting airway Pulmonary: CTAB Cardiovascular: rrr, nl s1s2, Abdomen: soft, nt, nd, no r/g, Extremities: no edema Neurologic: grossly i moving all extremities Agree with above exam Urinary Catheter Management: Boogie: Cath Placed During This Visit: yes Urinary Catheter Date of Insertion: 04/30/25 Urinary Catheter Time of Insertion: 11:02 Data 04/30/25 09:27 04/30/25 15:42 Micro: Microbiology 04/30/25 09:51 Blood Culture - Preliminary Blood SPECIMEN COLLECTED 04/30/25 09:27 Blood Culture - Preliminary Blood SPECIMEN COLLECTED A&P Assessment and plan 1. COPD (chronic obstructive pulmonary disease): 2. Shock circulatory: Plan: # Acute respiratory insufficiency -Patient is protecting her airway currently and on room air. Watch closely for more respiratory compromise very high risk for intubation and aspiration. Aspiration precautions-keep head of the bed elevated # Acute metabolic encephalopathy Probable meningitis although severe metabolic derangements are contributing to this. Avoid sedation. LP done pending results. # Probable septic shock Continue to wean levo as tolerated keep MAP above 65. Blood cultures pending # Probable bacterial or viral acute meningitis Empiric antibiotics given vancomycin and ceftriaxone and ampicillin. LP culture sent awaiting results. - Appreciate neurology involvement # Severe metabolic acidosis-differential includes severe dehydration versus ethylene glycol versus methanol toxicity. Continue bicarb drip and repeat blood ABG. Initial of 7.2, up to 7.33. Continue till tomorrow morning. Poison control has been contacted and they recommended fomepizole TSH is normal. random cortison 277high( reviewed 04/30/25) Urine drug screen posiitve for marijuana and benzos. ethylene glycol, pending # DKA? Blood, urine and serum pending Portable ordered along with urine and serum osmolality Beta-hydroxybutyrate ordered Urine ketones high, serum ketones will be ordered # TALIA Monitor urine output and creatinine could be ATN Continue D5W at 150 mL/h. # Hypernatremia Continue D5W at 150 mL/h. Monitor CMP every 8 hours do not correct more than 10 points in 24 hours # Severe hypokalemia Aggressive replacement. 59-year-old IV potassium be given. # IDDM- possible euglycemic DKA - betahydroxybuterate level pending Cannot initiate insulin yet due to severe hypokalemia Initiate insulin gtt only when K is above 3.3 - FS BS, SSI # COPD Not in exacerbation # High troponins- could be due to TALIA and demand ischemia Watch for EKG changes or symptoms # Hyperglycemia-insulin sliding scale medium. Avoid hypoglycemia. Maintain blood sugars between 140-180. # Sedation-avoid sedation # Nutrition-n.p.o. for now # DVT GI prophylaxis-SCDs and famotidine. # Goals of care-per primary team # CODE STATUS- FULL # Disposition-Will need full ICU support follow-up The high probability of a clinically significant, sudden or life threatening deterioration of the patient's [Respiratory, cardiac and renal] system(s) required my full and direct attention, intervention and personal management. The critical care time is as shown. This time is in addition to time spent performing any reported procedures but includes the following: [x] Data and vital sign review and interpretation [x] Patient assessment, examination and intervention [x] Documentation [x] Medication orders and management Critical Care Time (min): 35 Telemedicine Consent Patient seen today via Telemedicine by agreement and consent of patient.? Telemedicine technology used during the visit includes audio and, as available, review of images.? The patient encounter is appropriate and reasonable under the circumstances given the patient?s particular presentation at this time.? The patient has been advised of the potential risks and limitations of this mode of treatment (including but not limited to the absence of in-person examination) and has agreed to be treated in a remote fashion in spite of them.? Any, and all, of the patient?s/patient?s family?s questions on this issue have been answered and I have made no promises or guarantees to the patient. PDMP PDMP Reviewed: Not Reviewed Coding Level of Care Code Critical Care >/= 30 minutes Diagnoses COPD (chronic obstructive pulmonary disease) J44.9 Shock circulatory R57.9
--- NOTE | 2025-04-30 17:35 | PM.MISC ---
Miscellaneous Note Purpose of Documentation: Lumbar puncture Note: Date 04/30/2025 1020 Procedure: Lumbar Puncture The patient was prepped and draped in sterile fashion after providing informed consent. The procedure was performed in the left Lateral decubitus position. The Opening pressure was 190 mm of water while in the decubitus position Changes were seen in the CSF column associated with pulse and respiration. CSF appearance: Clear not xanthochromic or bloody CSF was obtained 12 mls Closing pressure was not done CSF sent for: Cell count Glucose Protein Routine culture gram stain Cryptococcal antigen VDRL Beta amyloid ratio She tolerated the procedure well and slept through it
[2025-04-30 17:41] LABS: Cyto Order Verification No Order
[2025-04-30 17:45] LABS: CSF Mononuclear # 0.002 10^3/uL (50-90); Mononuclear WBC CSF % 67 % (50-90); Polynuclear Cells ,CSF # 0.001 10^3/uL (0-10); Polynuclear WBC CSF % 33 % (0-10); Red Blood Cell CSF 1 10^3/uL (0-0); White Blood Cell CSF 3 /uL (0-5)
[2025-04-30] MEDS: hydrocortisone 100 mg/2 mL SDV IVP (17:54)
[2025-04-30 18:10] LABS: ABG PCO2 22.0 mmHg (35-45); ABG PH Result 7.33 (7.35-7.45); Alveolar-Arterial Oxygen Gradi 5.5 mmHg (5-10); Arterial Blood Gas Hematocrit 35.4 % (37-47); Blood Gas Allen Test Pos; Blood Gas Operator Identificat GD; Blood Gas Sample Site Radial, right; Blood Gas Sample Type Arterial; Carboxyhemoglobin 0.8 %THgb (0.4-20.1); Glucose Level-ABG 273.0 mg/dL (70-115); HCO3 ABG 11.6 mmol/L (22-26); Ionized Calcium Level - ABG 1.2 mmol/L (1.1-1.4); Methemoglobin 1.2 % (0.4-1.5); Oxygen Saturation ABG 96.8; PO2 ABG 77.6 mmHg (80.0-100.0); PO2 FiO2 Ratio Arterial Blood 369; Potassium Level - ABG 2.8 mmol/L (3.5-5.0); Sodium Level - ABG 153.0 mmol/L (131-143)
[2025-04-30 18:28] LABS: Base Excess VBG -11.9 mmol/L (-3.0-3.0); Blood Gas Operator Identificat gc; Blood Gas Sample Site Not specified; Blood Gas Sample Type Venous; HCO3 VBG 12.9 mmol/L (24-28); PCO2 VBG 25.7 mmHg (41-51); PO2 VBG 37.8 mmHg (25-40); Venous Blood Gas Hematocrit 36.2 % (37-47); pH VBG 7.31 (7.32-7.42)
[2025-04-30 18:45] LABS: Anion Gap 32.9 (5-19); Blood Urea Nitrogen 65 mg/dL (8-23); Calcium 8.6 mg/dL (8.5-10.5); Carbon Dioxide 12 mmol/L (22-29); Chloride 110 mmol/L (98-107); Glucose 268 mg/dL (65-115); Lactate (Lactic Acid level) 1.2 mmol/L (0.5-2.2); Osmolality Calculated 342 mOsm/kg (285-295); Sodium 152 mmol/L (136-145)
[2025-04-30 18:49] LABS: Potassium 2.9 mmol/L (3.5-5.1)
[2025-04-30 19:17] LABS: Ketone (Acetest) Serum Negative (Negative)
[2025-04-30 19:49] LABS: Lipase 63 U/L (13-60)
[2025-04-30 19:59] LABS: Salicylate < 0.3 mg/dL (3-10)
[2025-04-30] MEDS: norepinephrine 4 MG/250 ML BAG 15 MG IV (20:56)
[2025-04-30 22:52] LABS: Base Excess VBG 0.8 mmol/L (-3.0-3.0); Blood Gas Sample Type Venous; HCO3 VBG 22.7 mmol/L (24-28); PCO2 VBG 27.1 mmHg (41-51); PO2 VBG 60.8 mmHg (25-40); Venous Blood Gas Hematocrit 33.0 % (37-47); pH VBG 7.53 (7.32-7.42)
[2025-04-30 22:53] LABS: Blood Gas LPM 2.0 %; Blood Gas Sample Site Not specified
[2025-04-30] MEDS: potassium chloride premix 100 ML 50 MEQ IV (23:00)
[2025-04-30 23:22] LABS: Anion Gap 20.4 (5-19); Blood Urea Nitrogen 62 mg/dL (8-23); Calcium 8.0 mg/dL (8.5-10.5); Carbon Dioxide 20 mmol/L (22-29); Chloride 108 mmol/L (98-107); Glucose 191 mg/dL (65-115); Lactate (Lactic Acid level) 2.7 mmol/L (0.5-2.2); Osmolality Calculated 325 mOsm/kg (285-295); Sodium 146 mmol/L (136-145)
--- NOTE | 2025-04-30 23:22 | PC.PHAR ---
Addendum entered and electronically signed by Jo-Ann Giraldo RPH 05/01/25 00:08: Spoke to Dr. Campos. Discussed risk versus benefit of starting fomepizole without an ethylene glycol level from the send-out lab resulted. Giving loading dose at 15 mg/kg. Will determine if further doses are necessary once ethylene glycol results if it results prior to needing first maintenance dose. Original Note: Pharmacy was contacted by pt's nurse that Dr. Rg wished to start fomepizole. Pharmacist was told by RN that Doctor had contacted the poison control center, and it was suspected by poison control to be antifreeze poisoning. Doctor wished to start fomepizole immediately. Pharmacy had to have medication emergency shipped, which arrived around 2315. At this time, I contacted Patricia Townsend, strainer mill operator, who had the fomepizole emergency shipped. I informed Patricia that the medication had a note to draw ethylene glycol level drawn prior to administration. This lab has to be sent out and would not result prior to patient being transferred. Patricia confirmed medication order needed to be entered and medication administered immediately.
[2025-04-30 23:23] LABS: Potassium 2.4 mmol/L (3.5-5.1)
[2025-04-30 23:45] LABS: ABG PCO2 34.8 mmHg (35-45); ABG PH Result 7.48 (7.35-7.45); Alveolar-Arterial Oxygen Gradi 3.2 mmHg (5-10); Arterial Blood Gas Hematocrit 32.7 % (37-47); Blood Gas Allen Test Pos; Blood Gas Sample Site Radial, right; Blood Gas Sample Type Arterial; Carboxyhemoglobin 0.7 %THgb (0.4-20.1); Glucose Level-ABG 189.0 mg/dL (70-115); HCO3 ABG 25.7 mmol/L (22-26); Ionized Calcium Level - ABG 1.1 mmol/L (1.1-1.4); Methemoglobin 1.2 % (0.4-1.5); Oxygen Saturation ABG 97.9; PO2 ABG 80.5 mmHg (80.0-100.0); Potassium Level - ABG 2.6 mmol/L (3.5-5.0); Sodium Level - ABG 147.0 mmol/L (131-143)
--- NOTE | 2025-04-30 23:45 | PC.NURSE ---
Spoke with poison control, they are going to refer to their certified medicine aide to ensure if we need to give medication due to PH resolving. waiting for confirmation.
[2025-05-01] VITALS (29 sets, daily range): BP systolic 105–140; BP diastolic 60–93; PULSE 89–116; RESP 25–40; O2SAT 92–98
[2025-05-01] MEDS: potassium chloride premix 100 ML 25 MEQ IV ×2 (00:58→04:43)
--- NOTE | 2025-05-01 02:32 | P.TS_ITS ---
Transfer Summary Providers Date of Admission: 04/30/25 13:07 Date of Discharge/Transfer: 05/01/25 Attending Provider at Admission: Hailey Rg MD Attending Provider at Transfer: Hailey Rg MD Transfering Provider (if different): Modesto Campos Primary Care Provider: Tiny Graff MD Transfer Plans: Anticipated date of transfer: 05/01/25 . Receiving Facility[place] [facility] [place] Diagnoses at Discharge Discharge Diagnosis 1. COPD (chronic obstructive pulmonary disease): 2. Shock circulatory: 3. Major depressive disorder, recurrent severe without psychotic features: 4. Status post lumbar laminectomy: 5. Toxic metabolic encephalopathy: Reason for Visit Reason for Visit ams Brief History: HPI per H&P: Yessi Schulte is a 64 year old female with past medical history of coronary disease, depression, osteoarthritis, COPD, diabetes presents to the ER with altered mental status. History per . Reports in the past week she has had flulike symptoms. Include nausea vomiting and some diarrhea. Also noted to have recently stopped several medications including BuSpar and Ambien. Also noted not be monitoring blood sugars as closely. She became less responsive today and brought to the ER. And had progressive worsening's in the last 3 days. The patient was noted to be hypotensive. Received IV fluids in the ER. Started on Levophed. Imaging including CT of the head was done. The patient was noted to have severe acidosis. Bicarb was given in the ER. Subsequently have ordered a bicarb drip. Hospital Course Hospital Course Yessi Schulte is a 64 year old female with past medical history of coronary disease, depression, osteoarthritis, COPD, diabetes presents to the ER with altered mental status. She was found to have a severe metabolic acidosis and admitted to out ICU for pressor support. The etiology of her metabolic acidosis was unclear. Poison control was contacted during the day shift and based on labs, recommendation was for fomepizole to treat possible ethylene glycol poisoning. However, I was able to speak with spouse who did not believe any accidental or intentional toxic ingestion took place. With this plan, I was informed ethylene glycol levels were to be monitored. However, this lab test was a send-out and thus a transfer request to [facility] in [place] was requested. They accepted the patient. During her stay, patient was placed on a sodium bicarbonate drip. Her acidosis did resolve with serial VBG and BMP monitoring. Nevertheless, fomepizole was requested and administered prior to her departure. Patient remined unresponsive to verbal stimuli but did respond to painful stimuli. Airway remained protected. Other notable events include a lumbar puncture performed by our neurologist as bacterial or viral meningitis was in the differential. Patient was provided with empiric antibiotics given this and her septic picutre. Physical Exam Urinary Catheter Management: Boogie: Cath Placed During This Visit: yes Reason for Continuing Indwelling Catheter: Accurate Measurement of Urinary Output in Critically Ill Patients Urinary Catheter Date of Insertion: 04/30/25 Urinary Catheter Time of Insertion: 11:02 TS Data Studies Completed and Pending Pending at discharge Category Date Time Status Amylase Routine Lab 04/30/25 22:33 Received BMP [Basic Metabolic Panel] Q4H Lab 05/01/25 02:36 Ordered BMP [Basic Metabolic Panel] Q4H Lab 05/01/25 06:36 Ordered BMP [Basic Metabolic Panel] Q4H Lab 05/01/25 10:36 Ordered BMP [Basic Metabolic Panel] Q4H Lab 05/01/25 14:36 Ordered BMP [Basic Metabolic Panel] Q4H Lab 05/01/25 18:36 Ordered BMP [Basic Metabolic Panel] Q4H Lab 05/01/25 22:36 Ordered BMP [Basic Metabolic Panel] Q4H Lab 05/02/25 02:36 Ordered Beta-Amyloid 42/40 Ratio, CSF Routine Lab 04/30/25 17:20 Received Beta-Hydroxybutyrate Routine Lab 04/30/25 15:42 Received Blood Culture Stat Lab 04/30/25 09:51 Results CSF Culture & Gram Stain Stat Lab 04/30/25 17:20 Results Cryptococcal Antigen (CSF) Routine Lab 04/30/25 17:20 Results Ethylene Glycol Routine Lab 04/30/25 15:42 Received Ethylene Glycol Urine Routine Lab 04/30/25 14:58 Received Lactate (Lactic Acid level) Q4H Lab 05/01/25 02:36 Ordered Lactate (Lactic Acid level) Q4H Lab 05/01/25 06:36 Ordered Lactate (Lactic Acid level) Q4H Lab 05/01/25 10:36 Ordered Lactate (Lactic Acid level) Q4H Lab 05/01/25 14:36 Ordered Lactate (Lactic Acid level) Q4H Lab 05/01/25 18:36 Ordered Lactate (Lactic Acid level) Q4H Lab 05/01/25 22:36 Ordered Lactate (Lactic Acid level) Q4H Lab 05/02/25 02:36 Ordered Miscellaneous Test Routine Lab 04/30/25 15:42 Received Miscellaneous Test Stat Lab 04/30/25 19:05 Ordered Osmolality Serum Stat Lab 04/30/25 15:42 Received Osmolality Urine Stat Lab 04/30/25 14:58 Received VBG [Venous Blood Gas] Q4H Lab 05/01/25 02:36 Ordered VBG [Venous Blood Gas] Q4H Lab 05/01/25 06:36 Ordered VBG [Venous Blood Gas] Q4H Lab 05/01/25 10:36 Ordered VBG [Venous Blood Gas] Q4H Lab 05/01/25 14:36 Ordered VBG [Venous Blood Gas] Q4H Lab 05/01/25 18:36 Ordered VBG [Venous Blood Gas] Q4H Lab 05/01/25 22:36 Ordered VBG [Venous Blood Gas] Q4H Lab 05/02/25 02:36 Ordered VDRL on CSF Routine Lab 04/30/25 17:20 Received Vancomycin Trough Timed Lab 05/01/25 09:00 Ordered Completed Studies During Hospitalization Category Date Time Status CT abdomen pelvis wo con [id number] Stat Cat Scan 04/30/25 10:[address] head wo con* [id number] Stat Cat Scan 04/30/25 10:55 Completed XR chest 1V portable [id number] Stat Exams 04/30/25 09:14 Completed XR chest 1V portable [id number] Stat Exams 04/30/25 10:24 Completed Laboratory Last Values WBC 15.81 10^3/uL (3.29-11.43) H 04/30/25 09:27 RBC 4.90 10^6/uL (3.85-5.65) 04/30/25 09:27 Hgb 14.70 g/dL (11.27-16.99) 04/30/25 09:27 Hct 44.9 % (36-47) 04/30/25 09:27 MCV 91.6 fl (85-98) 04/30/25 09:27 MCH 30.0 pg (27-33) 04/30/25 09:27 MCHC 32.7 g/dL (30-55) 04/30/25 09:27 RDW 15.9 % (12.1-15.1) H 04/30/25 09:27 Plt Count 417 10^3/cmm (157-399) H 04/30/25 09:27 MPV 9.3 fL (7.4-10.4) 04/30/25 09:27 Neut % (Auto) 74.4 % 04/30/25 09: Lymph % (Auto) 12.3 % 04/30/25 09:27 [place]go % (Auto) 12.5 % 04/30/25 09:27 Eos % (Auto) 0.0 % 04/30/25 09: Baso % (Auto) 0.2 % 04/30/25 09: Neut # (Auto) 11.77 10^3/uL (1.8-7.7) H 04/30/25 09:27 Lymph # (Auto) 1.9 10^3/uL (0.8-4.8) 04/30/25 09:27 [place] # (Auto) 2.0 10^3/uL (0.2-0.9) H 04/30/25 09:27 Eos # (Auto) 0.0 10^3/uL (0.0-0.8) 04/30/25 09: Baso # (Auto) 0.0 10^3/uL (0.0-0.1) 04/30/25 09:27 Nucleated RBC % (auto) 0 % 04/30/25 09: Nucleated RBCs # 0.0 /100WBC 04/30/25 09:27 Specimen Type Venous 04/30/25 22:33 Sample Site Not specified 04/30/25 22:33 ABG pH 7.48 (7.35-7.45) H 04/30/25 22:30 ABG pCO2 34.8 mmHg (35-45) L 04/30/25 22:30 ABG pO2 80.5 mmHg (80.0-100.0) 04/30/25 22:30 ABG PO2/FiO2 Ratio 369 04/30/25 17:52 ABG HCO3 25.7 mmol/L (22-26) 04/30/25 22:30 ABG O2 Saturation 97.9 04/30/25 22:30 ABG Base Excess 2.3 mmol/L (-2.0-2.0) H 04/30/25 22:30 Philipp Test N/a 04/30/25: VBG pH 7.53 (7.32-7.42) H 04/30/25: VBG pCO2 27.1 mmHg (41-51) L 04/30/25: VBG pO2 60.8 mmHg (25-40) H 04/30/25: VBG HCO3 22.7 mmol/L (24-28) L 04/30/25: VBG Base Excess 0.8 mmol/L (-3.0-3.0) 04/30/25: VBG Hematocrit 33.0 % (37-47) L 04/30/25: A-a O2 Gradient 3.2 mmHg (5-10) L 04/30/25 22: Hematocrit 32.7 % (37-47) L 04/30/25 22:30 Hgb O2 Saturation 96.0 % (95-100) 04/30/25 22:30 Carboxyhemoglobin 0.7 %THgb (0.4-20.1) 04/30/25 22: Methemoglobin 1.2 % (0.4-1.5) 04/30/25 22: Total Hemoglobin 10.7 g/dL (12-16) L 04/30/25 22:30 Sodium 147.0 mmol/L (131-143) H 04/30/25 22:30 Potassium 2.6 mmol/L (3.5-5.0) L 04/30/25 22: Glucose 189.0 mg/dL (70-115) H 04/30/25 22:30 Ionized Calcium 1.1 mmol/L (1.1-1.4) 04/30/25 22:30 O2 Delivery Device Nc 04/30/25 22:33 O2 Liters/Min 2.0 % 04/30/25: FiO2 21.0 % 04/30/25 17:52 Newspaper Inserter ID Elliot 04/30/25: Sodium 146 mmol/L (136-145) H 04/30/25 22: Potassium 2.4 mmol/L (3.5-5.1) L* 04/30/25 22: Chloride 108 mmol/L (98-107) H 12/05/25 22:33 Carbon Dioxide 20 mmol/L (22-29) L 04/30/25 22:33 Anion Gap 20.4 (5-19) H 04/30/25 22:33 BUN 62 mg/dL (8-23) H 04/30/25 22:33 Creatinine 2.3 mg/dL (0.5-0.9) H 04/30/25 22:33 GFR Calculation 21.3 mL/min (90-130) L 04/30/25 22:33 Glucose 191 mg/dL (65-115) H 04/30/25 22:33 POC Glucose 238 mg/dL (70-110) H 04/30/25 21:19 Calculated Osmolality 325 mOsm/kg (285-295) H 04/30/25 22:33 Lactic Acid 1.9 mmol/L (0.5-2.2) 04/30/25 09:27 Lactate 2.7 mmol/L (0.5-2.2) H 04/30/25 22:33 Calcium 8.0 mg/dL (8.5-10.5) L 04/30/25 22:33 Magnesium 3.1 mg/dL (1.7-2.3) H 04/30/25 09:27 Total Bilirubin 0.5 mg/dL (0.15-1.2) 04/30/25 09:27 AST 30 U/L (0-32) 04/30/25 09:27 ALT 33 U/L (0-33) 04/30/25 09:27 Alkaline Phosphatase 60 U/L (35-105) 04/30/25 09:27 Ammonia 75 umol/L (11-51) H 04/30/25 15:42 Troponin T Baseline 54 ng/L (0-10) H 04/30/25 09:27 Troponin T 120 Minute 43.48 ng/L (0-10) H 04/30/25 11:24 Delta Troponin T -10.52 ABS# (0-10) L 04/30/25 11:24 Troponin T Hi Sens 6Hr 47.64 ng/L (0-10) H 04/30/25 15:42 Troponin T Hi Sens 6Hr Delta -6.36 ng/L (0-12) L 04/30/25 15:42 Total Protein 7.4 g/dL (6.6-8.7) 04/30/25 09: Albumin 4.7 g/dL (3.5-5.2) 04/30/25 09: Globulin 2.7 g/dL (1.3-4.6) 04/30/25 09: Lipase 63 U/L (13-60) H 04/30/25 18:08 Procalcitonin 0.47 ng/mL (0-0.5) 04/30/25 09: TSH 0.46 uIU/mL (0.27-4.20) 04/30/25 15:42 Random Cortisol 277.30 ug/dL (2.47-19.5) H 04/30/25 18:08 Urine Color Yellow (Yellow) 04/30/25 10:02 Urine Appearance Turbid (CLEAR) A 04/30/25 10: Urine pH 5.0 (5-7) 04/30/25 10:02 Ur Specific [place] 1.016 (1.005-1.030) 04/30/25 10:02 Urine Protein 2+ (Negative) A 04/30/25 10:02 Urine Glucose (UA) Negative (Normal) 04/30/25 10:02 Urine Ketones 3+ (Negative) H 04/30/25 10:02 Urine Blood 2+ (Negative) A 04/30/25 10: Urine Nitrate Negative (Negative) 04/30/25 10:02 Urine Bilirubin Negative (Negative) 04/30/25 10:02 Urine Urobilinogen 1.0 mg/dL (Negative) 04/30/25 10:02 Ur Leukocyte Esterase Trace (Negative) A 04/30/25 10:02 Urine RBC 6-10 /hpf (0-2) 04/30/25 10:02 Urine WBC 0-5 /hpf (0-5) 04/30/25 10:02 Ur Squamous Epith Cells 21-50 /hpf (0-5) H 04/30/25 10:02 Amorphous Sediment Not Reportable 04/30/25 10:02 Urine Bacteria None seen /hpf (NONE) 04/30/25 10:02 Hyaline Casts 222.19 /lpf 04/30/25 10:02 Fine Granular Casts 5-10 /lpf H 04/30/25 10:02 CSF Appearance Clear (CLEAR) 04/30/25 17:20 CSF Color Colorless (COLORLESS) 04/30/25 17:20 CSF WBC 3 /uL (0-5) 04/30/25 17:20 CSF RBC 1 10^3/uL (0-0) H 04/30/25 17:20 CSF Mononuclear # Auto 0.002 10^3/uL (50-90) L 04/30/25 17:20 CSF Mononuclear WBCs % 67 % (50-90) 04/30/25 17:20 CSF Polynuclear WBCs # 0.001 10^3/uL (0-10) 04/30/25 17:20 CSF Polynuclear WBCs % 33 % (0-10) H 04/30/25 17:20 CSF Glucose 120 mg/dL (40-70) H 04/30/25 17:20 CSF Total Protein 39 mg/dL (15-45) 04/30/25 17:20 Salicylates < 0.3 mg/dL (3-10) L 04/30/25 18:08 Urine Opiates Screen Negative ng/mL (Negative) 04/30/25 14:58 Acetaminophen < 5.0 ug/mL (10-30) L 04/30/25 15:42 Ur Barbiturates Screen Negative ng/mL (Negative) 04/30/25 14:58 Ur Phencyclidine Scrn Negative ng/mL (Negative) 04/30/25 14:58 Ur Amphetamines Screen Negative ng/mL (Negative) 04/30/25 14:58 U Benzodiazepines Scrn Positive ng/mL (Negative) H 04/30/25 14:58 Urine Cocaine Screen Negative ng/mL (Negative) 04/30/25 14:58 U Marijuana (THC) Screen Positive ng/mL (Negative) H 04/30/25 14:58 Ethyl Alcohol < 10 mg/dL (0-10) 04/30/25 15:42 Serum Ketones Negative (Negative) 04/30/25 09:27 Radiology Impressions Chest X-Ray 04/30/25 10:24 IMPRESSION: 1. Right-sided PICC line ending in the lower one third of the SVC in good position. 2. No acute process and no change since the last exam. Abdomen/Pelvis CT 04/30/25 10:55 IMPRESSION: 1. No acute findings in the abdomen or pelvis. 2. Prior cholecystectomy. 3. Postoperative changes GE junction. 4. Prior partial colectomy with small bowel anastomosis. 5. RIGHT MARIE degrades images in the pelvis. 6. Boogie catheter. 7. Vertebroplasty T12. 8. Prior hysterectomy Head CT 04/30/25 10:55 IMPRESSION: 1. No evidence of intracranial hemorrhage or mass effect. 2. No acute intracranial findings. Recent Clincial Data Last Vital Signs Temp 98.2 F 04/30/25 20:00 Pulse 111 H 05/01/25 01:55 Resp 26 H 05/01/25 01:55 BP 124/77 05/01/25 01:55 Pulse Ox 95 05/01/25 01:55 O2 Del Method Room Air 04/30/25 18:10 Vital Signs Temp Pulse Resp BP Pulse Ox O2 Del Method 05/01/25 01:55 111 H 26 H 124/77 95 05/01/25 01:50 112 H 34 H 124/77 94 05/01/25 01:45 107 H 26 H 132/75 95 05/01/25 01:30 111 H 30 H 132/75 94 05/01/25 01:15 97 28 H 118/73 97 05/01/25 01:00 103 H 29 H 121/72 94 05/01/25 00:45 105 H 36 H 128/75 95 05/01/25 00:30 94 27 H 128/75 95 05/01/25 00:15 104 H 25 H 121/74 94 05/01/25 00:00 104 H 36 H 121/74 95 04/30/25 23:45 103 H 34 H 135/74 95 04/30/25 23:30 98 31 H 107/69 94 04/30/25 23:15 96 31 H 113/67 94 04/30/25 23:00 95 31 H 108/71 94 04/30/25 22:45 100 31 H 109/67 94 04/30/25 22:30 94 30 H 111/67 94 04/30/25 22:15 99 32 H 118/71 94 04/30/25 22:00 104 H 29 H 132/81 95 04/30/25 22:00 105 H 04/30/25 21:45 107 H 31 H 132/81 98 04/30/25 21:30 105 H 27 H 126/85 94 04/30/25 21:15 101 H 32 H 128/75 94 04/30/25 21:00 102 H 29 H 125/91 95 04/30/25 20:45 102 H 32 H 128/77 92 04/30/25 20:30 111 H 31 H 148/89 94 04/30/25 20:15 110 H 29 H 121/80 93 04/30/25 20:00 98.2 F 109 H 30 H 141/84 98 04/30/25 19:45 109 H 28 H 131/76 98 04/30/25 19:30 105 H 26 H 131/76 97 04/30/25 19:15 109 H 31 H 123/75 97 04/30/25 19:00 105 H 26 H 123/75 96 04/30/25 18:10 118 H 26 H 134/89 94 Room Air 04/30/25 18:05 114 H 27 H 134/89 93 Room Air 04/30/25 18:00 118 H 23 H 134/89 92 Room Air 04/30/25 17:55 115 H 25 H 121/74 96 Room Air 04/30/25 17:50 120 H 21 H 121/74 95 Room Air 04/30/25 17:45 113 H 26 H 121/74 95 Room Air 04/30/25 17:40 116 H 28 H 123/80 95 Room Air 04/30/25 17:37 134 H 04/30/25 17:35 114 H 32 H 123/80 94 Room Air 04/30/25 17:30 114 H 31 H 123/80 94 Room Air 04/30/25 17:25 119 H 26 H 150/84 93 Room Air 04/30/25 17:20 122 H 26 H 150/84 94 Room Air 04/30/25 17:15 120 H 24 H 128/73 90 Room Air 04/30/25 17:10 116 H 21 H 128/73 90 Room Air 04/30/25 17:05 112 H 20 H 128/73 92 Room Air 04/30/25 17:00 108 H 28 H 128/73 92 Room Air 04/30/25 16:55 109 H 26 H 132/78 93 Room Air 04/30/25 16:50 120 H 26 H 132/78 94 Room Air 04/30/25 16:45 166 H 26 H 132/78 95 Room Air 04/30/25 16:40 163 H 26 H 137/86 94 Room Air 04/30/25 16:35 136 H 26 H 137/86 96 Room Air 04/30/25 16:31 134 H 04/30/25 16:30 138 H 26 H 137/86 95 Room Air 04/30/25 16:25 139 H 27 H 141/73 95 Room Air 04/30/25 16:24 Room Air 04/30/25 16:20 141 H 26 H 141/73 94 Room Air 04/30/25 16:15 146 H 18 141/82 95 Room Air 04/30/25 16:10 147 H 19 H 141/82 96 Room Air 04/30/25 16:05 145 H 30 H 141/82 96 Room Air 04/30/25 16:00 138 H 25 H 141/82 95 Room Air 04/30/25 15:55 138 H 25 H 121/78 95 Room Air 04/30/25 15:50 138 H 24 H 121/78 96 Room Air 04/30/25 15:45 139 H 25 H 121/78 96 Room Air 04/30/25 15:40 145 H 22 H 142/82 97 Room Air 04/30/25 15:35 147 H 24 H 142/82 96 Room Air 04/30/25 15:30 138 H 24 H 142/82 95 Room Air 04/30/25 15:25 145 H 19 H 138/78 95 Room Air 04/30/25 15:20 138 H 23 H 138/78 93 Room Air 04/30/25 15:15 139 H 23 H 138/78 94 Room Air 04/30/25 15:10 141 H 23 H 132/76 86 L Room Air 04/30/25 15:05 138 H 22 H 132/76 95 Room Air 04/30/25 15:00 136 H 22 H 132/76 96 Room Air 04/30/25 14:55 139 H 24 H 126/80 96 Room Air 04/30/25 14:50 141 H 25 H 126/80 100 Room Air 04/30/25 14:45 137 H 24 H 126/80 96 Room Air 04/30/25 14:40 134 H 22 H 136/75 91 Room Air 04/30/25 14:35 134 H 22 H 136/75 90 Room Air Intake & Output/Weight 04/28/25 04/29/25 04/30/25 05/01/25 06:59 06:59 06:59 06:59 Intake Total 3457.0 / 3457.0 Output Total 110 / 110 Balance 3347.0 / 3347.0 Weight 34.927 kg Vitals Last Vital Signs Temp 98.2 F 04/30/25 20:00 Pulse 111 H 05/01/25 01:55 Resp 26 H 05/01/25 01:55 BP 124/77 05/01/25 01:55 Pulse Ox 95 05/01/25 01:55 O2 Del Method Room Air 04/30/25 18:10 TS Medications Medications Glucagon (Glucagon 1 Mg/Ml Kit 1 Ml) 1 mg IM ONCE PRN; Protocol PRN Reason: Adult Acute Hypoglycemia Nursing Prot. Hydrocortisone Sodium Succinate (Hydrocortisone 100 Mg/2 Ml Sdv) 100 mg IVP Q8H [facility] Last Admin: 04/30/25 17:54 Dose: 100 mg Norepinephrine Bitartrate (Levophed) 4 mg in 250 mls @ 0 mls/hr IV .Q0M ISABELLA; Protocol Last Admin: 04/30/25 20:56 Dose: 4 mcg/min, 15 mls/hr Acyclovir 350 mg/ Sodium (Chloride) 107 mls @ 110 mls/hr IV Q24H [facility] Last Infusion: 04/30/25 17:34 Dose: Infused Potassium Chloride (K-Teddy Premix) 100 mls @ 50 mls/hr IV ONCE [facility] Last Admin: 04/30/25 23:00 Dose: 50 mls/hr Dextrose (D5w) 500 mls @ 0 mls/hr IV ONCE PRN; Protocol PRN Reason: Adult Acute Hypoglycemia Prot Dextrose (D10w) 125 mls @ 750 mls/hr IV PRN PRN; Protocol PRN Reason: Adult Acute Hypoglycemia Nursing Protocol Dextrose (D10w) 250 mls @ 1,000 mls/hr IV PRN PRN; Protocol PRN Reason: Adult Acute Hypoglycemia Nursing Protocol Potassium Chloride (K-Teddy) 100 mls @ 25 mls/hr IV Q4H [facility] Stop: 05/01/25 07:44 Last Admin: 05/01/25 00:58 Dose: 25 mls/hr Sodium Chloride (Sodium Chloride 0.45%) 1,000 mls @ 75 mls/hr IV .[id number] [facility] Last Admin: 05/01/25 00:40 Dose: 75 mls/hr Insulin Human Lispro (Insulin Lispro 100 Unit/1 Ml) 0 unit SUBCUT BEDTIME ISABELLA; Protocol Last Admin: 04/30/25 21:38 Dose: 4 unit Insulin Human Lispro (Insulin Lispro 100 Unit/1 Ml) 0 unit SUBCUT TIDWM ISABELLA; Protocol Last Admin: 04/30/25 17:54 Dose: 6 unit Meropenem (Meropenem 1,000 Mg Sdv) 1,000 mg IVP Q12H ISABELLA; Protocol Last Admin: 04/30/25 16:02 Dose: 1,000 mg Vancomycin HCl (Vancomycin 1,000 Mg Sdv (Pharmacy Mix)) 0 mg XX PRN PRN PRN Reason: Pharmacy to Dose Discontinued Medications Sodium Chloride (Sodium Chloride 0.9%) 1,000 mls @ 999 mls/hr IV .Q1H1M [facility] Stop: 04/30/25 11:15 Last Infusion: 04/30/25 11:07 Dose: Infused Vancomycin HCl 1,000 mg/ (Sodium Chloride) 250 mls @ 250 mls/hr IV ONCE ONE; Protocol Stop: 04/30/25 10:13 Last Admin: 04/30/25 11:32 Dose: 250 mls/hr Aztreonam 2,000 mg/ Sodium (Chloride) 100 mls @ 200 mls/hr IV ONCE ONE; Protocol Stop: 04/30/25 09:59 Last Infusion: 04/30/25 11:06 Dose: Infused Dextrose (D5w) 1,000 mls @ 150 mls/hr IV .Q6H40M [facility] Last Admin: 04/30/25 21:40 Dose: 150 mls/hr Sodium Bicarbonate 150 meq/ (Dextrose) 1,150 mls @ 150 mls/hr IV .Q7H40M [facility] Last Admin: 04/30/25 14:46 Dose: 150 mls/hr Potassium Chloride (K-Teddy) 100 mls @ 25 mls/hr IV ONCE ONE Stop: 04/30/25 20:44 Last Admin: 04/30/25 17:03 Dose: 25 mls/hr Fomepizole 525 mg/ Sodium (Chloride) 100.525 mls @ 201.05 mls/hr IV ONCE ONE Stop: 05/01/25 00:44 Last Admin: 05/01/25 00:17 Dose: 201.05 mls/hr Lorazepam (Lorazepam 2 Mg/Ml Inj 1 Ml) 0.5 mg IVP ONCE ONE Stop: 04/30/25 10:20 Last Admin: 04/30/25 10:22 Dose: 0.5 mg Lorazepam (Lorazepam 2 Mg/Ml Inj 1 Ml) 0.5 mg IVP ONCE ONE Stop: 04/30/25 10:37 Last Admin: 04/30/25 10:53 Dose: 0.5 mg Lorazepam (Lorazepam 2 Mg/Ml Inj 1 Ml) 0.5 mg IVP ONCE ONE Stop: 04/30/25 10:37 Last Admin: 04/30/25 11:48 Dose: Not Given Metoprolol Tartrate (Metoprolol Tartrate 1 Mg/1 Ml Sdv 5 Ml) 5 mg IVP ONCE ONE Stop: 04/30/25 16:40 Last Admin: 04/30/25 16:57 Dose: 5 mg Metoprolol Tartrate (Metoprolol Tartrate 1 Mg/1 Ml Sdv 5 Ml) Confirm Administered Dose 5 mg .ROUTE .STK-MED ONE Stop: 04/30/25 16:46 Ondansetron HCl (Ondansetron 2 Mg/Ml Sdv 2 Ml) 4 mg IVP ONCE ONE Stop: 04/30/25 09:15 Last Admin: 04/30/25 10:22 Dose: 4 mg Sodium Bicarbonate (Sodium Bicarbonate 8.4% 1 Meq/Ml 50ml Syr) 100 meq IVP ONCE ONE Stop: 04/30/25 10:29 Last Admin: 04/30/25 12:06 Dose: 100 meq Sodium Bicarbonate (Sodium Bicarbonate 8.4% 1 Meq/Ml 50ml Syr) 100 meq IVP ONCE ONE Stop: 04/30/25 12:01 Last Admin: 04/30/25 13:52 Dose: Not Given Allergies ciprofloxacin (From Cipro) Allergy (Severe, Verified 04/08/25 08:28) Unresponsive codeine Allergy (Severe, Verified 04/08/25 08:28) ALGY-Anaphylaxis lidocaine Allergy (Severe, Verified 04/08/25 08:28) ALGY-Swell Lip/Tongue/Throat morphine Allergy (Severe, Verified 04/08/25 08:28) ALGY-Anaphylaxis Penicillins Allergy (Severe, Verified 04/08/25 08:28) ALGY-Swell Lip/Tongue/Throat procaine (From Novocain) Allergy (Severe, Verified 04/08/25 08:28) ALGY-Swell Lip/Tongue/Throat prochlorperazine (From Compazine) Allergy (Severe, Verified 04/08/25 08:28) ALGY-Swell Lip/Tongue/Throat heart will stop per pt adhesive tape Allergy (Unknown, Verified 04/08/25 08:28) Unknown Sulfa (Sulfonamide Antibiotics) Allergy (Unknown, Verified 04/08/25 08:28) Unknown methocarbamol Allergy (Verified 04/08/25 08:28) ALGY-Redness of Skin Home Medications epinephrine 0.3 mg/0.3 mL injection, auto-injector (EpiPen 2-Redd) 0.3 mg (0.3 mL) IM Q4H PRN anaphylaxis #2 ea 10/30/23 [Rx Confirmed 04/30/25] clopidogrel 75 mg tablet 75 mg PO DAILY #90 tabs 03/31/24 [Rx Confirmed 04/30/25] Held on 02/19/25. Instructions: Resume on 02/21/25. 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 Instructions: Order Change albuterol sulfate 90 mcg/actuation aerosol inhaler 2 puff inhalation QID PRN Shortness Of Breath #8.5 grams 10/29/24 [Rx Confirmed 04/30/25] aspirin 81 mg tablet,delayed release 81 mg PO DAILY 30 days #30 tabs 10/31/24 [Rx Confirmed 04/30/25] Held on 02/19/25. Instructions: Resume on 02/21/25. potassium chloride 10 mEq tablet,extended release (Klor-Con) 10 meq PO DAILY #30 tabs 01/28/25 [Rx Confirmed 04/30/25] buspirone 15 mg tablet 7.5 mg PO BID 02/09/25 [History Confirmed 04/30/25] sertraline 100 mg tablet (Zoloft) 100 mg PO QPM 02/09/25 [History Confirmed 04/30/25] pen needle, diabetic 32 gauge x 5/32 (TechLITE Pen Needle) #100 ea 04/06/25 [Rx Confirmed 04/30/25] midodrine 10 mg tablet 10 mg PO TID #270 tabs 04/26/25 [Rx Confirmed 04/30/25] clonazepam 1 mg tablet 0.5 - 1 mg PO DAILY PRN aggitation 04/30/25 [History Confirmed 04/30/25] insulin glargine 100 unit/mL (3 mL) subcutaneous pen (Lantus Solostar U-100 Insulin) 10 unit SUBCUT QPM 04/30/25 [History Confirmed 04/30/25] prazosin 5 mg capsule mg 04/30/25 [History Confirmed 04/30/25] Discharge Plan Discharge Patient Disposition: Home Condition: Stable Prescriptions: No Action clopidogrel 75 mg tablet 75 mg PO DAILY Qty: 90 3RF nitroglycerin [Nitrostat] 0.4 mg tablet, sublingual 0.4 mg SUBLINGUAL Q5M PRN (Reason: Chest Pain) Qty: 20 2RF Rx Instructions: do not exceed 3 doses per episode trazodone 100 mg tablet 200 mg PO .HS PRN (Reason: insomnia) Qty: 60 2RF (DME) FreeStyle Sel[place] 3 [place] Misc See Rx Instructions .Route Qty: 1 0RF Rx Instructions: As directed (DME) FreeStyle [place] 3 Sensor Device See Rx Instructions .Route Qty: 2 5RF Rx Instructions: As directed potassium chloride [Klor-Con 10] 10 mEq tablet extended release 10 meq PO DAILY Qty: 30 3RF epinephrine [EpiPen 2-Redd] 0.3 mg/0.3 mL auto-injector 0.3 mg IM Q4H PRN (Reason: anaphylaxis) Qty: 2 1RF albuterol sulfate 90 mcg/actuation HFA aerosol inhaler 2 puff inhalation QID PRN (Reason: Shortness Of Breath) Qty: 8.5 0RF (DME) pen needle, diabetic [TechLITE Pen Needle] 32 gauge x 5/32 needle See Rx Instructions .ROUTE .COMPLEX Qty: 100 0RF Dose Instruction: USE DIRECTED Rx Instructions: USE DIRECTED midodrine 10 mg tablet 10 mg PO TID Qty: 270 3RF Rx Instructions: do not give last dose of day after 6PM or within 4 hrs of bedtime gabapentin 600 mg tablet 600 mg PO BID olanzapine 7.5 mg tablet 7.5 mg PO QPM prazosin 5 mg capsule 5 mg PO QPM pantoprazole 40 mg tablet,delayed release (DR/EC) 40 mg PO DAILY aspirin 81 mg tablet,delayed release (DR/EC) 81 mg PO DAILY 30 Days Qty: 30 3RF sertraline [Zoloft] 100 mg tablet 100 mg PO QPM buspirone 15 mg tablet 7.5 mg PO BID clonazepam 1 mg tablet 0.5 - 1 mg PO DAILY PRN (Reason: aggitation) insulin glargine [Lantus Solostar U-100 Insulin] 100 unit/mL (3 mL) insulin pen 10 unit SUBCUT QPM prazosin 5 mg capsule Referrals: Tiny Graff MD [Primary Care Provider, Family Practice] Patient Instructions: Opioid Safety, Patient Portal & Jose Eduardo Instructions Transfer Attestations Time Spent in Transfer Care: greater than 30 min Quality Metrics Clinical Quality Measures [ No reported AMI, CVA or VTE this stay] Coding Level of Care Code Acute Code for Chg Fwd Diagnoses COPD (chronic obstructive pulmonary disease) J44.9 Shock circulatory R57.9 Major depressive disorder, recurrent severe without psychotic features F33.2 Status post lumbar laminectomy Z98.890 Toxic metabolic encephalopathy G92.8
[2025-05-01 03:21] LABS: Base Excess VBG 3.2 mmol/L (-3.0-3.0); Blood Gas Allen Test Pos; Blood Gas LPM 2.0 %; Blood Gas Sample Site Not specified; Blood Gas Sample Type Venous; HCO3 VBG 27.3 mmol/L (24-28); PCO2 VBG 39.3 mmHg (41-51); PO2 VBG 65.7 mmHg (25-40); Venous Blood Gas Hematocrit 33.6 % (37-47); pH VBG 7.45 (7.32-7.42)
[2025-05-01] MEDS: hydrocortisone 100 mg/2 mL SDV IVP (03:35)
[2025-05-01] MEDS: meropenem 1,000 mg SDV 1000 MG IVP (03:36)
--- NOTE | 2025-05-01 03:50 | PC.NURSE ---
Poison control called back. Hospitalists and toxicologists both in agreement to give fomepizole before off site labs have resulted. Medication was received from pharmacy and given.
[2025-05-01 04:08] LABS: Anion Gap 16.3 (5-19); Blood Urea Nitrogen 57 mg/dL (8-23); Calcium 8.2 mg/dL (8.5-10.5); Carbon Dioxide 26 mmol/L (22-29); Chloride 107 mmol/L (98-107); Glucose 68 mg/dL (65-115); Lactate (Lactic Acid level) 1.4 mmol/L (0.5-2.2); Osmolality Calculated 316 mOsm/kg (285-295); Potassium 3.3 mmol/L (3.5-5.1); Sodium 146 mmol/L (136-145)
--- NOTE | 2025-05-01 05:49 | PM.CONSULT ---
Providers/Reason For Consult Consulting Physician/Specialty*: Iona Villegas MD/Infectious Disease Reason for Consult*: AMS, possible sepsis Requesting Physician: Hailey Rg MD Attending Physician: Hailey Rg MD Primary Care Provider: Tiny Graff MD History of Present Illness History of Present Illness Patient assessed via telemedicine Yessi Schulte is a 64 year old female with past medical history of CAD, hypertension, smoking, diabetes, h/o lumbar fusion in january 2025, h/o alcohol use per chart review, h/o PTSD, recently started on midodrine as an outpatient due to hypotension. Admitted via the ER yesterday after presenting with altered mental status. Reportedly has been non compliant with medications .Per available history, patient had had a poor appetite, generalized weakness in the past week leading up to admission. She was brought by family due to being less responsive than usual. Unknown ROS at this time relate dto altered mentation. Lans were notable for TALIA, high anion gap metabolic acidosis, elevated lactate, UDS + marijuana and benzodiazepenes, negative alcohol level, elevated ammonia at 75. Abg without hypercapnea,electrolytes with hypernatremia and hypokalemia. Elevated random cortisol. LP was performed due to concern for meningitis. OP reported at 190mmHG water, cell count 3, Glu 120 and protein 39. negtaive gram stain and cryptococcal antigen. CXR without infiltrates, CT abdomen and pelvis without overt acute process. She is being [facility] to [facility] this morning due to concern for ethylene glycol poisoning with transfer imminent this morning. Review of Systems General: Reports: ROS unobtainable due to medical condition Medications/Allergies Home Medications ?Medication ?Instructions ?Recorded ?Confirmed ?Last Taken ?Type epinephrine 0.3 mg/0.3 mL 0.3 mg (0.3 mL) IM Q4H PRN 10/30/23 04/30/25 Unknown Rx injection, auto-injector (EpiPen anaphylaxis #2 ea 2-Redd) clopidogrel 75 mg tablet 75 mg PO DAILY #90 tabs 03/31/24 04/30/25 04/25/25 Rx Held on 02/19/25. Instructions: Resume on 02/21/25. nitroglycerin 0.4 mg sublingual 0.4 mg sublingual Q5M PRN Chest 03/31/24 04/30/25 Unknown Rx tablet (Nitrostat) Pain #20 tabs trazodone 100 mg tablet 200 mg (2 x 100 mg) PO .HS PRN 06/12/24 04/30/25 04/25/25 Rx insomnia #60 tabs 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 sensor (FreeStyle #2 ea 07/28/24 04/30/25 Unknown Rx Selwyn 3 Sensor device) 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,barrel tester,cont #1 ea 07/28/24 04/30/25 Unknown Rx (FreeStyle [place] 3 [place]) gabapentin 600 mg tablet 600 mg PO BID 10/28/24 04/30/25 02/18/25 History olanzapine 7.5 mg tablet 7.5 mg PO QPM 10/28/24 04/30/25 04/25/25 History pantoprazole 40 mg tablet,delayed 40 mg PO DAILY 10/28/24 04/30/25 04/25/25 History release prazosin 5 mg capsule 5 mg PO QPM 10/28/24 04/30/25 04/25/25 History Held on 02/25/25. Instructions: Order Change albuterol sulfate 90 mcg/actuation 2 puff inhalation QID PRN 10/29/24 04/30/25 Unknown Rx aerosol inhaler Shortness Of Breath #8.5 grams aspirin 81 mg tablet,delayed 81 mg PO DAILY 30 days #30 tabs 10/31/24 04/30/25 04/25/25 Rx release Held on 02/19/25. Instructions: Resume on 02/21/25. potassium chloride 10 mEq 10 meq PO DAILY #30 tabs 01/28/25 04/30/25 04/25/25 Rx tablet,extended release (Klor-Con) buspirone 15 mg tablet 7.5 mg PO BID 02/09/25 04/30/25 04/25/25 History sertraline 100 mg tablet (Zoloft) 100 mg PO QPM 02/09/25 04/30/25 04/25/25 History pen needle, diabetic 32 gauge x #100 ea 04/06/25 04/30/25 Unknown Rx /32 (TechLITE Pen Needle) midodrine 10 mg tablet 10 mg PO TID #270 tabs 04/26/25 04/30/25 04/25/25 Rx clonazepam 1 mg tablet 0.5 - 1 mg PO DAILY PRN aggitation 04/30/25 04/30/25 Unknown History insulin glargine 100 unit/mL (3 10 unit SUBCUT QPM 04/30/25 04/30/25 04/25/25 History mL) subcutaneous pen (Lantus Solostar U-100 Insulin) prazosin 5 mg capsule mg 04/30/25 04/30/25 Unknown History Allergies Allergy/AdvReac Type Severity Reaction Status Date / Time ciprofloxacin (From Cipro) Allergy Severe Unresponsiv Verified 04/08/25 08:28 e codeine Allergy Severe ALGY-Anaphy Verified 04/08/25 08:28 laxis lidocaine Allergy Severe ALGY-Swell Verified 04/08/25 08:28 Lip/Tongue/Throat morphine Allergy Severe ALGY-Anaphy Verified 04/08/25 08:28 laxis Penicillins Allergy Severe ALGY-Swell Verified 04/08/25 08:28 Lip/Tongue/Throat procaine (From Novocain) Allergy Severe ALGY-Swell Verified 04/08/25 08:28 Lip/Tongue/Throat prochlorperazine (From Allergy Severe ALGY-Swell Verified 04/08/25 08:28 Compazine) Lip/Tongue/Throat adhesive tape Allergy Unknown Unknown Verified 04/08/25 08:28 Sulfa (Sulfonamide Allergy Unknown Unknown Verified 04/08/25 08:28 Antibiotics) methocarbamol Allergy ALGY-Redness Verified 04/08/25 08:28 of Skin Current Medications Generic Name Dose Route Start Last Admin Trade Name Freq PRN Reason Stop Dose Admin Hydrocortisone Sodium Succinate 100 mg 04/30/25 17:30 05/01/25 03:35 Hydrocortisone 100 Mg/2 Ml Sdv IVP 100 mg Q8H ISABELLA Administration Norepinephrine Bitartrate 4 mg in 250 mls @ 0 mls/hr 04/30/25 11:15 05/01/25 04:35 Levophed IV 0 mcg/min .Q0M ISABELLA 0 mls/hr Protocol Titration Per Protocol Acyclovir 350 mg/ Sodium 107 mls @ 110 mls/hr 04/30/25 16:15 04/30/25 17:34 Chloride IV Infused Q24H ISABELLA Infusion Potassium Chloride 100 mls @ 50 mls/hr 04/30/25 20:45 04/30/25 23:00 K-Teddy Premix IV 50 mls/hr ONCE ISABELLA Administration Potassium Chloride 100 mls @ 25 mls/hr 04/30/25 23:45 05/01/25 04:43 K-Teddy IV 05/01/25 07:44 25 mls/hr Q4H ISABELLA Administration Sodium Chloride 1,000 mls @ 75 mls/hr 04/30/25 23:45 05/01/25 00:40 Sodium Chloride 0.45% IV 75 mls/hr .[id number] ISABELLA Administration Insulin Human Lispro 0 unit 04/30/25 21:00 04/30/25 21:38 Insulin Lispro 100 Unit/1 Ml SUBCUT 4 unit BEDTIME ISABELLA Administration Protocol Insulin Human Lispro 0 unit 04/30/25 18:00 04/30/25 17:54 Insulin Lispro 100 Unit/1 Ml SUBCUT 6 unit TIDWM ISABELLA Administration Protocol Meropenem 1,000 mg 04/30/25 15:15 05/01/25 03:36 Meropenem 1,000 Mg Sdv IVP 1,000 mg Q12H ISABELLA Administration Protocol PFSH Acute PFSH: Medical History Shock circulatory Cervical spondylosis Head injury due to trauma Concussion Neck pain Liver mass on CT 05/19 and LDCT 08/18; US 09/18 shows it is simple cyst Mixed dyslipidemia COPD (chronic obstructive pulmonary disease) Polyneuropathy associated with underlying disease CAD (coronary artery disease) one stent Type 2 diabetes mellitus Screening for lung cancer LDCT ordered for 09/18 Nicotine dependence, cigarettes, with other nicotine-induced disorders Psychiatric care Claudication Essential hypertension Neutrophilic leukocytosis Myocardial infarction acute 09/2019 Depression sees psychiatry Surgical History History of lumbar laminectomy 02.19.25 Dr. Caldwell L4-5 left laminectomy History of hip surgery R hip replacement after femoral neck fx 10/30/24 Hx of bilateral cataract extraction History of bladder surgery Vitality urology [facility]. Home Hx of cervical spine surgery X 2; one done at [facility], one done at [facility]. Home History of 3 sections S/P DONNA-BSO done b/c of ruptured uterus; no cancer History of incisional hernia repair Status post colonoscopy 8.9.23 O[facility]--tubular adenoma and other polyps--repeat 3 yrs S/P cardiac cath one stent History of appendectomy H/O exploratory laparotomy Multiple bowel resections--3 X--done b/c of adhesions/blockages S/P cholecystectomy Family History Mother Breast cancer Sister Breast cancer Sister Breast cancer Brother Brain cancer Brother CAD (coronary artery disease) Social History Smoking and tobacco/nicotine status: current every day tobacco/nicotine user cigarettes Packs smoked per day: 0.5 [ Other cigarette details: started age 13] Alcohol intake: current Alcohol intake frequency: holidays/special occasions only Substance/Drug Use: never Household members: spouse and other Details: daughter, son in law and 2 grandkids Marital status: Number of children: 2 Highest education level completed: Bachelor's Degree Current occupational status: retired 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 Female Reproductive History: Spontaneous abortions: No Vitals/I&O/Wt Last Vital Signs Temp 98.2 F 04/30/25 20:00 Pulse 93 05/01/25 04:30 Resp 31 H 05/01/25 04:30 BP 105/75 05/01/25 04:30 Pulse Ox 98 05/01/25 04:30 O2 Del Method Room Air 04/30/25 18:10 04/30/25 04/30/25 05/01/25 14:59 22:59 06:59 Intake Total 2099 1357.0 / 3457.0 1689.125 / 5146.125 Output Total 110 / 110 Balance 2099 1247.0 / 3347.0 1689.125 / 5036.125 Weight last 48 hrs Weight 34.927 kg Weight 35.607 kg Physical Exam Narrative: This is a telemedicine assessment without physical exam Urinary Catheter Management: Boogie: Cath Placed During This Visit: yes Reason for Continuing Indwelling Catheter: Accurate Measurement of Urinary Output in Critically Ill Patients Urinary Catheter Date of Insertion: 04/30/25 Urinary Catheter Time of Insertion: 11:02 Data 04/30/25 09:27 05/01/25 02:58 Other Labs: Radiology Impressions Chest X-Ray 04/30/25 10:24 IMPRESSION: 1. Right-sided PICC line ending in the lower one third of the SVC in good position. 2. No acute process and no change since the last exam. Abdomen/Pelvis CT 04/30/25 10:55 IMPRESSION: 1. No acute findings in the abdomen or pelvis. 2. Prior cholecystectomy. 3. Postoperative changes GE junction. 4. Prior partial colectomy with small bowel anastomosis. 5. RIGHT MARIE degrades images in the pelvis. 6. Boogie catheter. 7. Vertebroplasty T12. 8. Prior hysterectomy Head CT 04/30/25 10:55 IMPRESSION: 1. No evidence of intracranial hemorrhage or mass effect. 2. No acute intracranial findings. Ordering Provider/Ordering MD: Evangelista Moses MD Date of Service: 04/30/25 Procedure(s): XR chest 1V portable [id number] Accession Number(s): [id number] Report Number: [id number] WS: [id number] Exam: XR chest 1V portable [id number] Date/Time of Exam: 04/30/2025 9:16 AM Reason For Exam: ams Comparison 01/30/2025. Lungs are fully expanded and clear. Normal cardiomediastinal silhouette. Bony structures are intact. Signs of T12 vertebroplasty. Fusion hardware in the lower C-spine. XR/XR chest 1V portable [id number] IMPRESSION: 1. No acute cardiopulmonary finding. Laboratory Results WBC 15.81 10^3/uL (3.29-11.43) H 04/30/25 09:27 RBC 4.90 10^6/uL (3.85-5.65) 04/30/25 09:27 Hgb 14.70 g/dL (11.27-16.99) 04/30/25 09:27 Hct 44.9 % (36-47) 04/30/25 09:27 MCV 91.6 fl (85-98) 04/30/25 09:27 MCH 30.0 pg (27-33) 04/30/25 09:27 MCHC 32.7 g/dL (30-55) 04/30/25 09:27 RDW 15.9 % (12.1-15.1) H 04/30/25 09:27 Plt Count 417 10^3/cmm (157-399) H 04/30/25 09:27 MPV 9.3 fL (7.4-10.4) 04/30/25 09:27 Neut % (Auto) 74.4 % 04/30/25 09:27 Lymph % (Auto) 12.3 % 04/30/25 09:27 Hyde % (Auto) 12.5 % 04/30/25 09:27 Eos % (Auto) 0.0 % 04/30/25 09: Baso % (Auto) 0.2 % 04/30/25 09:27 Neut # (Auto) 11.77 10^3/uL (1.8-7.7) H 04/30/25 09:27 Lymph # (Auto) 1.9 10^3/uL (0.8-4.8) 04/30/25 09:27 Hyde # (Auto) 2.0 10^3/uL (0.2-0.9) H 04/30/25 09:27 Eos # (Auto) 0.0 10^3/uL (0.0-0.8) 04/30/25 09:27 Baso # (Auto) 0.0 10^3/uL (0.0-0.1) 04/30/25 09: Nucleated RBC % (auto) 0 % 04/30/25 09: Nucleated RBCs # 0.0 /100WBC 04/30/25 09:27 Specimen Type Venous 05/01/25 02:58 Sample Site Not specified 05/01/25 02:58 ABG pH 7.48 (7.35-7.45) H 04/30/25 22:30 ABG pCO2 34.8 mmHg (35-45) L 04/30/25 22:30 ABG pO2 80.5 mmHg (80.0-100.0) 04/30/25 22:30 ABG PO2/FiO2 Ratio 369 04/30/25 17:52 ABG HCO3 25.7 mmol/L (22-26) 04/30/25 22:30 ABG O2 Saturation 97.9 04/30/25 22:30 ABG Base Excess 2.3 mmol/L (-2.0-2.0) H 04/30/25 22:30 Philipp Test Pos 05/01/25 02:58 VBG pH 7.45 (7.32-7.42) H 05/01/25 02:58 VBG pCO2 39.3 mmHg (41-51) L 05/01/25 02:58 VBG pO2 65.7 mmHg (25-40) H 05/01/25 02:58 VBG HCO3 27.3 mmol/L (24-28) 05/01/25 02:58 VBG Base Excess 3.2 mmol/L (-3.0-3.0) H 05/01/25 02:58 VBG Hematocrit 33.6 % (37-47) L 05/01/25 02:58 A-a O2 Gradient 3.2 mmHg (5-10) L 04/30/25 22:30 Hematocrit 32.7 % (37-47) L 04/30/25 22:30 Hgb O2 Saturation 96.0 % (95-100) 04/30/25 22:30 Carboxyhemoglobin 0.7 %THgb (0.4-20.1) 04/30/25 22:30 Methemoglobin 1.2 % (0.4-1.5) 04/30/25 22:30 Total Hemoglobin 10.7 g/dL (12-16) L 04/30/25 22:30 Sodium 147.0 mmol/L (131-143) H 04/30/25 22:30 Potassium 2.6 mmol/L (3.5-5.0) L 04/30/25 22:30 Glucose 189.0 mg/dL (70-115) H 04/30/25 22:30 Ionized Calcium 1.1 mmol/L (1.1-1.4) 04/30/25 22:30 O2 Delivery Device Nc 05/01/25 02:58 O2 Liters/Min 2.0 % 05/01/25 02:58 FiO2 21.0 % 04/30/25 17:52 [facility] Elliot 05/01/25 02:58 Sodium 146 mmol/L (136-145) H 05/01/25 02:58 Potassium 3.3 mmol/L (3.5-5.1) L 05/01/25 02:58 Chloride 107 mmol/L (98-107) 05/01/25 02:58 Carbon Dioxide 26 mmol/L (22-29) 05/01/25 02:58 Anion Gap 16.3 (5-19) 05/01/25 02:58 BUN 57 mg/dL (8-23) H 05/01/25 02:58 Creatinine 2.2 mg/dL (0.5-0.9) H 05/01/25 02:58 GFR Calculation 22.4 mL/min (90-130) L 05/01/25 02:58 Glucose 68 mg/dL (65-115) 05/01/25 02:58 POC Glucose 128 mg/dL (70-110) H 05/01/25 06:31 Calculated Osmolality 316 mOsm/kg (285-295) H 05/01/25 02:58 Lactic Acid 1.9 mmol/L (0.5-2.2) 04/30/25 09:27 Lactate 1.4 mmol/L (0.5-2.2) 05/01/25 02:58 Calcium 8.2 mg/dL (8.5-10.5) L 05/01/25 02:58 Magnesium 3.1 mg/dL (1.7-2.3) H 04/30/25 09:27 Total Bilirubin 0.5 mg/dL (0.15-1.2) 04/30/25 09:27 AST 30 U/L (0-32) 04/30/25 09:27 ALT 33 U/L (0-33) 04/30/25 09:27 Alkaline Phosphatase 60 U/L (35-105) 04/30/25 09:27 Ammonia 75 umol/L (11-51) H 04/30/25 15:42 Troponin T Baseline 54 ng/L (0-10) H 04/30/25 09:27 Troponin T 120 Minute 43.48 ng/L (0-10) H 04/30/25 11:24 Delta Troponin T -10.52 ABS# (0-10) L 04/30/25 11:24 Troponin T Hi Sens 6Hr 47.64 ng/L (0-10) H 04/30/25 15:42 Troponin T Hi Sens 6Hr Delta -6.36 ng/L (0-12) L 04/30/25 15:42 Total Protein 7.4 g/dL (6.6-8.7) 04/30/25 09:27 Albumin 4.7 g/dL (3.5-5.2) 04/30/25 09:27 Globulin 2.7 g/dL (1.3-4.6) 04/30/25 09:27 Lipase 63 U/L (13-60) H 04/30/25 18:08 Procalcitonin 0.47 ng/mL (0-0.5) 04/30/25 09:27 TSH 0.46 uIU/mL (0.27-4.20) 04/30/25 15:42 Random Cortisol 277.30 ug/dL (2.47-19.5) H 04/30/25 18:08 Urine Color Yellow (Yellow) 04/30/25 10:02 Urine Appearance Turbid (CLEAR) A 04/30/25 10:02 Urine pH 5.0 (5-7) 04/30/25 10:02 Ur Specific [place] 1.016 (1.005-1.030) 04/30/25 10:02 Urine Protein 2+ (Negative) A 04/30/25 10:02 Urine Glucose (UA) Negative (Normal) 04/30/25 10:02 Urine Ketones 3+ (Negative) H 04/30/25 10:02 Urine Blood 2+ (Negative) A 04/30/25 10:02 Urine Nitrate Negative (Negative) 04/30/25 10:02 Urine Bilirubin Negative (Negative) 04/30/25 10:02 Urine Urobilinogen 1.0 mg/dL (Negative) 04/30/25 10:02 Ur Leukocyte Esterase Trace (Negative) A 04/30/25 10:02 Urine RBC 6-10 /hpf (0-2) 04/30/25 10:02 Urine WBC 0-5 /hpf (0-5) 04/30/25 10:02 Ur Squamous Epith Cells 21-50 /hpf (0-5) H 04/30/25 10:02 Amorphous Sediment Not Reportable 04/30/25 10:02 Urine Bacteria None seen /hpf (NONE) 04/30/25 10:02 Hyaline Casts 222.19 /lpf 04/30/25 10:02 Fine Granular Casts 5-10 /lpf H 04/30/25 10:02 CSF Appearance Clear (CLEAR) 04/30/25 17:20 CSF Color Colorless (COLORLESS) 04/30/25 17:20 CSF WBC 3 /uL (0-5) 04/30/25 17:20 CSF RBC 1 10^3/uL (0-0) H 04/30/25 17:20 CSF Mononuclear # Auto 0.002 10^3/uL (50-90) L 04/30/25 17:20 CSF Mononuclear WBCs % 67 % (50-90) 04/30/25 17:20 CSF Polynuclear WBCs # 0.001 10^3/uL (0-10) 04/30/25 17:20 CSF Polynuclear WBCs % 33 % (0-10) H 04/30/25 17:20 CSF Glucose 120 mg/dL (40-70) H 04/30/25 17:20 CSF Total Protein 39 mg/dL (15-45) 04/30/25 17:20 Salicylates < 0.3 mg/dL (3-10) L 04/30/25 18:08 Urine Opiates Screen Negative ng/mL (Negative) 04/30/25 14:58 Acetaminophen < 5.0 ug/mL (10-30) L 04/30/25 15:42 Ur Barbiturates Screen Negative ng/mL (Negative) 04/30/25 14:58 Ur Phencyclidine Scrn Negative ng/mL (Negative) 04/30/25 14:58 Ur Amphetamines Screen Negative ng/mL (Negative) 04/30/25 14:58 U Benzodiazepines Scrn Positive ng/mL (Negative) H 04/30/25 14:58 Urine Cocaine Screen Negative ng/mL (Negative) 04/30/25 14:58 U Marijuana (THC) Screen Positive ng/mL (Negative) H 04/30/25 14:58 Ethyl Alcohol < 10 mg/dL (0-10) 04/30/25 15:42 Serum Ketones Negative (Negative) 04/30/25 09:27 Micro: Microbiology 04/30/25 17:20 Gram Stain - Final Cerebrospinal Fluid Cryptococcal Antigen (CSF) - Final 04/30/25 09:51 Blood Culture - Preliminary Blood SPECIMEN COLLECTED 04/30/25 09:27 Blood Culture - Preliminary Blood SPECIMEN COLLECTED NAME: Yessi Schulte Andre LOC: ICU U #: [id number] AGE/SX: 64/F ROOM: [facility] RE04/30/[address]: Jhony Rg MD : 1960 BED: 1 DIS: FAX #: STATUS: ADM IN TLOC: Spec #: [id number] Sergei: 04/30/25 Status: RES Req #: [id number] Recd: 04/30/[address]: Yanira Smith MD Src: CSF SpDesc: Ordered: CSf Culture GS/S, Cryp Ag CSF/R Procedure Result Verified Site Gram Stain Final 04/30/25 Result RARE WHITE BLOOD CELLS NO ORGANISMS SEEN CSF Culture PENDING Cryptococcal Antigen (CSF) Final 04/30/25 Cryptococcal AG Result: NEGATIVE FOR CRYPTOCOCCAL ANTIGEN A&P Assessment and plan 1. Altered mental status: 2. Metabolic encephalopathy: 3. High anion gap metabolic acidosis: 4. Hyperammonemia: 5. Hypernatremia: Plan: 64F brought to ER yesterday due to c/o generalized weakness and AMS developing over the past week. Noted to have several meatbolci derangements including HAGMA, Hypernatremia, hypokalemia, TALIA, elevated lactate which may point to dehydration though unknown precipitant. Unknown if she had been having GI losses over the past week. Underwent LP due to concern for meningitis. OP reported normal at 190 mm h20 per neuro note review. WBC count 3, CSF glucose 120, TP 39, unlikely bacterial meningitis. negative gram stain and cryptococcal AG. CSF cx pending. UA with 21-50 squamous epithelial cells, likely not a clean catch, please repeat CXR without any infiltrates to suggest pneumonia. CT abdomen/pelvis without acute abdominal process. Past h/o partial colectomy with small bowel anastomosis. She has been afebrile during admission course thus far. hyperammonemia without known h/o cirrhosis negative procalcitonin management of above metabolic derangements per primary team Patient is in the process of being transferred to [facility] this morning due to concern for ethylene glycol poisoning. Can continue meropenem and vancomycin as started yesterday while pending blood culture results. At this time low suspicion for infectious process. D/c acyclovir. Obtain resp viral panel. Will follow patient if she remains at [facility] PDMP PDMP Reviewed: Not Reviewed Coding Level of Care Code Acute Code for Chg Fwd High MDM includes number and complexity of problems actively addressed during encounter, amount and/or complexity of data reviewed/ordered and described risk of complication, morbidity or mortality of management as documented Diagnoses Altered mental status R41.82 Metabolic encephalopathy G93.41 High anion gap metabolic acidosis E87.29 Hyperammonemia E72.20 Hypernatremia E87.0
[2025-05-01 06:36] LABS: Base Excess VBG 1.2 mmol/L (-3.0-3.0); Blood Gas Sample Type Venous; HCO3 VBG 24.9 mmol/L (24-28); PCO2 VBG 35.1 mmHg (41-51); PO2 VBG 44.6 mmHg (25-40); Venous Blood Gas Hematocrit 33.4 % (37-47); pH VBG 7.46 (7.32-7.42)
[2025-05-01 06:37] LABS: Blood Gas LPM 2.0 %; Blood Gas Sample Site Not specified
[2025-05-01 06:58] LABS: Anion Gap 18.0 (5-19); Blood Urea Nitrogen 55 mg/dL (8-23); Calcium 8.3 mg/dL (8.5-10.5); Carbon Dioxide 23 mmol/L (22-29); Chloride 108 mmol/L (98-107); Glucose 129 mg/dL (65-115); Lactate (Lactic Acid level) 1.4 mmol/L (0.5-2.2); Osmolality Calculated 317 mOsm/kg (285-295); Potassium 4.0 mmol/L (3.5-5.1); Sodium 145 mmol/L (136-145)
[2025-05-02 09:09] LABS: Amylase 36 U/L (21-101)
[2025-05-04 00:19] LABS: VDRL on CSF NON-REACTIVE
== END 2025-05-01 07:42 | disposition short-term general hospital (02) | DRG 92 ==
LOC: ER 10:39 → ICU 13:07
PROVIDERS: Family Medicine; Internal Medicine; Physician Assistant; Specialist; Admitting Provider Internal Medicine; Emergency Provider Emergency Medicine; PCP Family Medicine; Visit Provider Internal Medicine
DX: G92.8 Other toxic encephalopathy (principal); E72.4 Disorders of ornithine metabolism; E87.0 Hyperosmolality and hypernatremia; N17.9 Acute kidney failure, unspecified; E87.20 Acidosis, unspecified; F33.2 Major depressive disorder, recurrent severe without psychotic features; I25.10 Atherosclerotic heart disease of native coronary artery without angina pectoris; I10 Essential (primary) hypertension; F17.210 Nicotine dependence, cigarettes, uncomplicated; E11.42 Type 2 diabetes mellitus with diabetic polyneuropathy; E11.65 Type 2 diabetes mellitus with hyperglycemia; F43.10 Post-traumatic stress disorder, unspecified; I95.9 Hypotension, unspecified; E87.6 Hypokalemia; R06.89 Other abnormalities of breathing; R00.0 Tachycardia, unspecified; E86.0 Dehydration; J44.9 Chronic obstructive pulmonary disease, unspecified; E78.2 Mixed hyperlipidemia; Z91.128 Patient's intentional underdosing of medication regimen for other reason; I25.2 Old myocardial infarction; Z98.1 Arthrodesis status; Z95.5 Presence of coronary angioplasty implant and graft
CPT/HCPCS: 36415; 36416; 36573; 36592; 36600; 51702; 70450; 71045; 74176; 80048; 80051; 80053; 80306; 80307; 80503; 81001; 82009; 82010; 82140; 82150; 82330; 82533; 82542; 82693; 82803; 82805; 82945; 82962; 83605; 83690; 83735; 83930; 83935; 84145; 84157; 84443; 84484; 85025; 86592; 87040; 87070; 87075; 87205; 87327; 89050; 93005; 96365; 96366; 96367; 96372; 96375; 99291; 99292; C1751; J0133; J1451; J1720; J1815; J2060; J2185; J2405; J3373; J3480; J3490; J7030; J7050; J7070; J9999

== ENCOUNTER 2025-05-25 15:19 | Outpatient (CLI) | payer MEDICARE, SELFPAY | END 2025-05-25 15:20 | disposition home or self-care (01) | LOC: LAB 15:22 | PROVIDERS: PCP Family Medicine; Visit Provider Family Medicine | DX: E11.65 Type 2 diabetes mellitus with hyperglycemia (principal) | CPT/HCPCS: 80048; 83036; 84439; 84443; 85025 ==